=== PATIENT | female | born 1945 | race Caucasian/White ===

== ENCOUNTER → 2020-11-25 10:16 | Outpatient (BNVA) | payer MEDICARE, SELFPAY | PROVIDERS: Visit Provider Internal Medicine | DX: J44.9 Chronic obstructive pulmonary disease, unspecified (principal); Z79.51 Long term (current) use of inhaled steroids; Z87.891 Personal history of nicotine dependence | CPT/HCPCS: 99212 ==

== ENCOUNTER → 2021-03-23 09:07 | Outpatient (BNVA) | payer MEDICARE, SELFPAY | PROVIDERS: Visit Provider Internal Medicine | DX: I25.10 Atherosclerotic heart disease of native coronary artery without angina pectoris (principal); I10 Essential (primary) hypertension | CPT/HCPCS: 99212 ==

== ENCOUNTER 2021-05-04 10:06 | Emergency (ER) | payer MEDICARE, SELFPAY ==
--- NOTE | ~2021-05-04 | XR_ITS ---
EXAMINATION: XR CHEST CLINICAL INFORMATION: Shortness of breath COMPARISON: December 01, 2019 TECHNIQUE: AP portable view of the chest was obtained. FINDINGS: There is no evidence of acute parenchymal disease, pneumothorax, or pleural effusion. Heart normal size. No evidence of pulmonary edema. XR/XR chest 1V IMPRESSION: No acute disease.
[2021-05-04 10:19] VITALS: BP 160/62; PULSE 79; RESP 18; TEMP 35.9; O2SAT 98; BMI 36.0
--- NOTE | 2021-05-04 11:39 | ECG_ITS ---
Test Reason : GI BLEED Blood Pressure : / mmHG Vent. Rate : 071 BPM Atrial Rate : 071 BPM P-R Int : 180 ms QRS Dur : 084 ms QT Int : 418 ms P-R-T Axes : 046 008 079 degrees QTc Int : 454 ms Normal sinus rhythm Inferior infarct , age undetermined Abnormal ECG When compared with ECG of 02-DEC-2019 08:05, Premature ventricular complexes are no longer Present Inferior infarct is now Present Referred By: Ben Martinez Electronically Signed By:MANUELA GUZMAN MD
--- NOTE | 2021-05-04 12:03 | ED_ITS ---
HPI - General Adult General Chief complaint: General Medical Stated complaint: black stool Time Seen by Provider: 05/04/21 11:41 Source: patient Mode of arrival: ambulatory Limitations: no limitations History of Present Illness HPI narrative: 76-year-old female who presents emergency department for evaluation of black stools for 2 weeks, weakness, lightheadedness, dizziness and shortness of breath with exertion. The patient states that she has noticed intermittent, dark stools for the past 2 weeks. She states that she was feeling very weak and tired especially with exertion. She states she gets short of mirtha ath with exertion as well. She denied any chest pain, fever, chills, cough. She states that she has been having right lower back pain and bilateral lower groin pain, she is vague in describing the character the pain but she states that is [id number] in intensity and is intermittent. She denied frequency, urgency or dysuria. She did talk to her PCP and she states that she had blood work done but does not know the results. Her PCP told her to stop taking aspirin and she was going to be referred to a assistant professor of history for further evaluation. The patient denies taking any [id number] NSAIDs. The patient had blood work which was done yesterday, her H&H was 11.7 and 37.3. Comprehensive metabolic panel did reveal a slight elevation in her BUN of 22 with a normal creatinine of 1.25. LFTs were normal. TSH was normal. Related Data Home Medications Medication Instructions Recorded Confirmed anastrozole 1 mg tablet 1 mg PO DAILY 11/25/20 03/23/21 budesonide-formoterol HFA 160 INHALATION 11/25/20 03/23/21 mcg-4.5 mcg/actuation aerosol inhaler calcium carbonate 500 mg calcium 500 mg PO BID 11/25/20 03/23/21 (1,250 mg) tablet cholecalciferol (vitamin D3) 25 25 mcg PO DAILY 11/25/20 03/23/21 mcg (1,000 unit) tablet gabapentin 100 mg capsule 100 mg PO TID 11/25/20 03/23/21 memantine 10 mg tablet 10 mg PO BID 11/25/20 03/23/21 solifenacin 5 mg tablet mg PO 11/25/20 03/23/21 thiamine HCl (vitamin B1) 100 mg 100 mg PO DAILY 11/25/20 03/23/21 tablet vitamin E (dl, acetate) 180 mg PO 11/25/20 03/23/21 (400 unit) capsule aspirin 81 mg tablet,delayed 81 mg PO DAILY 03/23/21 release pravastatin 40 mg tablet 40 mg PO DAILY tab 03/23/21 03/23/21 Previous Rx's Medication Instructions Recorded albuterol sulfate 90 mcg/actuation 2 puff INHALATION Q4-6H PRN #8.5 11/06/20 aerosol inhaler cap nitroglycerin 0.4 mg sublingual 0.4 mg SUBLINGUAL Q5M PRN #30 tab 03/23/21 tablet diltiazem HCl 120 mg capsule,24 120 mg PO DAILY 90 Days #90 cap 04/01/21 hr,extended release Allergies Allergy/AdvReac Type Severity Reaction Status Date / Time hydrochlorothiazide Allergy Intermediate FELT Verified 03/23/21 09:13 [From ZESTORETIC] FAINT, syncope lisinopril [LISINOPRIL] Allergy Intermediate COUGH, Verified 03/23/21 09:13 coughing Review of Systems Review of Systems: Yes all other systems are reviewed and are negative [facility] Past Medical History [facility] Narrative: Social history: The patient denies tobacco use. She occasionally drinks alcohol. She denies drug use. Medical History Atherosclerotic cardiovascular disease COPD (chronic obstructive pulmonary disease) Surgical History History of ankle surgery History of lumpectomy of left breast History of tubal ligation Family History Family History Father Family history of cancer Mother Colon cancer Alzheimer disease Social History Social History Patient Tobacco Use Status: Former Tobacco user Quit Date: age 58 Physical Exam Vital Signs: Vital Signs: Last Vital Signs Temp 96.6 F L 05/04/21 10:19 Pulse 68 05/04/21 14:14 Resp 18 05/04/21 14:14 BP 153/48 H 05/04/21 14:14 Pulse Ox 96 05/04/21 14:14 Body Mass Index 36.0 Const: General: cooperative (Very pleasant) and no acute distress Nutr itional Appearance: obese Orientation/consciousness: oriented to person and oriented to place Limitations: no limitations HENMT: Head: Yes normal to inspection, Yes normocephalic and Yes atraumatic Ears: external ears normal General nose exam: Normal external nose present Face and sinus: Yes normal facial exam Mouth: Normal oral and palatal mucosa present Throat: Yes posterior oropharynx normal Eyes: General: appearance normal, both eyes and all related structures Pupils: Equal, round and reactive pupils present Neck: Neck: Yes normal visual inspection, Yes no lymphadenopathy, Yes trachea midline and Yes supple Chest: Chest palpation & inspection: normal inspection of the chest and normal palpation of entire chest wall Resp: Effort & Inspection: normal respiratory effort and able to speak in complete sentences Auscultation: clear to auscultation bilaterally Cardio: Rate: regular rate Rhythm: regular rhythm Heart sounds: S1 normal heart sound present, S2 normal heart sound present and no murmurs GI: Inspection: Yes normal to inspection Palpation (GI): Soft to palpation, nontender and no guarding Auscultation: normal bowel sounds Rectal Exam - Female: visual inspection normal, normal sphincter tone and Abnormal stool present Rectal exam abnormal stool - female: black stool and other (Hemoccult negative) : General: Yes no CVA tenderness Back/Spine/Pelvis: Back: no CVA tenderness Skin: General skin exam: no rashes or lesions noted Neuro: General: oriented to person and oriented to place Cranial nerves: Yes CN's II-XII intact bilaterally and Yes Equal, round and reactive pupils present Cognition (Neuro): normal cognition Motor exam (neuro): 5/5 motor strength present throughout Extrem: General: Yes normal to inspection Psych: Appearance: grossly normal Speech and movement: Normal speech and movement present Affect: normal affect Attitude: cooperative Thought process: Normal thought process present Thought content: Normal thought content present Course Course Course Narrative: 76-year-old female who presents emergency department for evaluation of dark stools, weakness, fatigue, dyspnea on exertion x2 weeks. Patient was taking 1 baby aspirin per day but not taking any NSAIDs. Vital signs revealed a blood pressure of 160/62 and a low temperature of 96.6?, otherwise were unremarkable. Physical examination revealed no abdominal tenderness. Rectal examination did reveal dark stool however the stool was Hemoccult negative. I ordered andevaluation including EKG was ordered on the patient 1417: Patient's laboratory evaluation revealed an H&H of 10.9 and 34.7. MCV was normal. Patient has had similar H&H is in the past, yesterday's H&H was 11.7 and 37.3. This time however I do not think the patient has had a significant decrease in her hematocrit and I do not think that anemia is the cause of her symptoms especially since her Hemoccult was negative today. CMP was normal except for a slight elevation in his BNP 22 which is chronic. The patient's 12 EKG was unremarkable. I will discuss the patient's presentation with her provider, Esperanza Lopez NP. 1520: I was unable to reach the patient's PCP. The patient appears to be stable and I will discharge her to home. She was advised to follow-up with her PCP discuss further workup of her dark stools and her other symptoms. The patient was given verbal and printed instructions prior to discharge. The patient was advised to follow-up with her PCP in 2 days and to return to the emergency department if her symptoms get worse or if she develops any new symptoms that are concerning to her. Medical Decision Making Lab Data Result diagrams: 05/04/21 12:03 05/04/21 12:03 Labs: Lab Results 05/04/21 05/04/21 05/04/21 Range/Units 12:03 12:03 12:03 WBC 11.4 H (4.8-10.8) X10*3/uL RBC 3.79 L (4.20-5.50) X10*6/uL Hgb 10.9 L (12.0-16.0) g/dl Hct 34.7 L (37-47) % MCV 91.6 (80-98) fL MCH 28.8 (27.0-33.0) pg MCHC 31.4 (31.0-35.0) g/dl RDW 14.6 (11.0-16.0) % Plt Count 329 (160-400) X10*3/uL MPV 9.7 (9.4-12.3) fL Immature Gran % (Auto) 0.7 H (0.0-0.4) % Neut % (Auto) 67.2 (45-73) % Lymph % (Auto) 21.4 (20-40) % [place] % (Auto) 8.6 (2-11) % Eos % (Auto) 1.7 (0-4) % Baso % (Auto) 0.4 (0-2) % Lymph # (Auto) 2.4 (1.2-4.9) X10*3/uL [place] # (Auto) 1.0 (0.1-1.2) X10*3/uL Eos # (Auto) 0.2 (0.0-0.4) X10*3/uL Baso # (Auto) 0.0 (0.0-0.2) X10*3/uL Abs Immat Gran (auto) 0.08 H (0.00-0.03) X10*3/uL Absolute Neuts (auto) 7.7 (2.0-8.3) X10*3/uL Absolute Nucleated RBC 0.000 (0.0-0.012) X10*3/uL Nucleated RBC % (auto) 0.0 (0.0-0.2) /100WBC PT 12.1 (9.9-13.0) SEC INR 1.1 (0.9-1.1) APTT 35.7 (24.1-38.0) SEC Sodium 139 (135-145) mmol/L Potassium 4.4 (3.3-5.1) mmol/L Chloride 104 (96-108) mmol/L Carbon Dioxide 25 (22-29) mmol/L Anion Gap 14 (12-20) BUN 22 H (9-16) mg/dL Creatinine 1.27 (0.5-1.4) mg/dL Estim Creat Clear Calc 40.8 Estimated GFR 41 Random Glucose 106 (60-115) mg/dL Calcium 9.3 (8.4-10.2) mg/dL Total Bilirubin (0.0-1.0) mg/dL Direct Bilirubin (0.0-0.5) mg/dL AST (5-31) U/L ALT (0-31) U/L Alkaline Phosphatase (39-117) U/L Troponin I High Sens (<3.5-17.0) ng/L Total Protein (6.5-8.0) g/dL Albumin (3.5-5.0) g/dL Lipase (8-78) U/L Coronavirus (PCR) (Negative) Influenza Type A (PCR) (Negative) Influenza Type B (PCR) (Negative) RSV RNA Qual (PCR) (Negative) 05/04/21 05/04/21 05/04/21 Range/Units 12:03 12:03 12:03 WBC (4.8-10.8) X10*3/uL RBC (4.20-5.50) X10*6/uL Hgb (12.0-16.0) g/dl Hct (37-47) % MCV (80-98) fL MCH (27.0-33.0) pg MCHC (31.0-35.0) g/dl RDW (11.0-16.0) % Plt Count (160-400) X10*3/uL MPV (9.4-12.3) fL Immature Gran % (Auto) (0.0-0.4) % Neut % (Auto) (45-73) % Lymph % (Auto) (20-40) % [place] % (Auto) (2-11) % Eos % (Auto) (0-4) % Baso % (Auto) (0-2) % Lymph # (Auto) (1.2-4.9) X10*3/uL [place] # (Auto) (0.1-1.2) X10*3/uL Eos # (Auto) (0.0-0.4) X10*3/uL Baso # (Auto) (0.0-0.2) X10*3/uL Abs Immat Gran (auto) (0.00-0.03) X10*3/uL Absolute Neuts (auto) (2.0-8.3) X10*3/uL Absolute Nucleated RBC (0.0-0.012) X10*3/uL Nucleated RBC % (auto) (0.0-0.2) /100WBC PT (9.9-13.0) SEC INR (0.9-1.1) APTT (24.1-38.0) SEC Sodium (135-145) mmol/L Potassium (3.3-5.1) mmol/L Chloride (96-108) mmol/L Carbon Dioxide (22-29) mmol/L Anion Gap (12-20) BUN (9-16) mg/dL Creatinine (0.5-1.4) mg/dL Estim Creat Clear Calc Estimated GFR Random Glucose (60-115) mg/dL Calcium (8.4-10.2) mg/dL Total Bilirubin 0.6 (0.0-1.0) mg/dL Direct Bilirubin 0.3 (0.0-0.5) mg/dL AST 17 (5-31) U/L ALT 13 (0-31) U/L Alkaline Phosphatase 82 (39-117) U/L Troponin I High Sens 5.1 (<3.5-17.0) ng/L Total Protein 7.8 (6.5-8.0) g/dL Albumin 4.2 (3.5-5.0) g/dL Lipase 31 (8-78) U/L Coronavirus (PCR) NEGATIVE (Negative) Influenza Type A (PCR) NEGATIVE (Negative) Influenza Type B (PCR) NEGATIVE (Negative) RSV RNA Qual (PCR) NEGATIVE (Negative) ECG Data Attestation: I personally reviewed and interpreted this ECG as follows: Interpretation: 1236: Normal sinus rhythm rate of 71, normal [place] interval, QRS duration and QTC interval, Q-wave in lead 3 and AVF, no ST segment elevation, no ST segment depression, no PACs, no PVCs, nonspecific T-wave abnormalities. Discharge Plan Discharge Clinical Impression: Dark stools, Weakness Patient Disposition: Home, Self-Care Additional Instructions: Your laboratory evaluation revealed that she had mild anemia with a hemoglobin and hematocrit of 10.9 and 34.7. Your MCV (a marker of low iron) was also normal which is reassuring. On your examination today, your stool was dark but it was no blood in your stool (Hemoccult negative). Your abdominal exam did not reveal any tenderness which was also reassuring. Your EKG was unremarkable. At this time, I do not have a clear cause for your dark stools or your weakness. Follow-up with your doctor in 2 days. Please return to the emergency department if your symptoms get worse or if you develop any symptoms that are concerning to you. Prescriptions: No Action albuterol sulfate 90 mcg/actuation HFA aerosol inhaler 2 puff inhalation Q4-6H PRN (Reason: for wheezing) Qty: 8.5 RF: 3 diltiazem HCl 120 mg capsule,extended release 24 hr 120 mg PO DAILY 90 Days Qty: 90 RF: 2 memantine 10 mg tablet 10 mg PO BID RF: 0 gabapentin 100 mg capsule 100 mg PO TID RF: 0 calcium carbonate 500 mg calcium (1,250 mg) tablet 500 mg PO BID RF: 0 thiamine HCl (vitamin B1) 100 mg tablet 100 mg PO DAILY RF: 0 cholecalciferol (vitamin D3) 25 mcg (1,000 unit) tablet 25 mcg PO DAILY RF: 0 solifenacin 5 mg tablet PO RF: 0 vitamin E (dl, acetate) 400 unit capsule PO RF: 0 budesonide-formoterol 160-4.5 mcg/actuation HFA aerosol inhaler inhalation RF: 0 anastrozole 1 mg tablet 1 mg PO DAILY RF: 0 pravastatin 40 mg tablet 40 mg PO DAILY RF: 0 nitroglycerin 0.4 mg tablet, sublingual 0.4 mg sublingual Q5M PRN (Reason: chest pain) Qty: 30 RF: 5 aspirin 81 mg tablet,delayed release (DR/EC) 81 mg PO DAILY RF: 0 Interventions: ED Discharge Assessment Last Done: 05/04/21 15:32 Discharge Date/Time: 05/04/21 15:33
[2021-05-04 12:12] LABS: MANUAL DIFF FLAG NO
[2021-05-04 12:17] LABS: Basophils Percent Auto 0.4 % (0-2); Eosinophils Absolute Auto 0.2 X10*3/uL (0.0-0.4); Eosinophils Percent Auto 1.7 % (0-4); Hematocrit 34.7 % (37-47); Hemoglobin 10.9 g/dl (12.0-16.0); Imm Gran Abs Auto 0.08 X10*3/uL (0.00-0.03); Imm Gran Pct Auto 0.7 % (0.0-0.4); Lymphocytes Absolute Auto 2.4 X10*3/uL (1.2-4.9); Lymphocytes Percent Auto 21.4 % (20-40); Mean Corpuscular HGB Conc 31.4 g/dl (31.0-35.0); Mean Corpuscular Hemoglobin 28.8 pg (27.0-33.0); Mean Corpuscular Volume 91.6 fL (80-98); Mean Platelet Volume 9.7 fL (9.4-12.3); Monocytes Percent Auto 8.6 % (2-11); Neutrophils Absolute Auto 7.7 X10*3/uL (2.0-8.3); Neutrophils Percent Auto 67.2 % (45-73); Platelet Count 329 X10*3/uL (160-400); Red Blood Count 3.79 X10*6/uL (4.20-5.50); Red Cell Distribution Width 14.6 % (11.0-16.0); White Blood Count 11.4 X10*3/uL (4.8-10.8)
[2021-05-04 12:24] LABS: INTERNATIONAL NORM RATIO 1.1 (0.9-1.1); Prothrombin Time 12.1 SEC (9.9-13.0)
[2021-05-04 12:26] LABS: Partial Thromboplastin Time 35.7 SEC (24.1-38.0)
[2021-05-04 12:33] VITALS: BP 144/56; PULSE 70; RESP 15; O2SAT 96
[2021-05-04 12:41] LABS: Alanine Aminotransferase 13 U/L (0-31); Albumin Level 4.2 g/dL (3.5-5.0); Alkaline Phosphatase 82 U/L (39-117); Anion Gap 14 (12-20); Aspartate Amino Transferase 17 U/L (5-31); Bilirubin Direct 0.3 mg/dL (0.0-0.5); Bilirubin Total 0.6 mg/dL (0.0-1.0); Blood Urea Nitrogen 22 mg/dL (9-16); Calcium 9.3 mg/dL (8.4-10.2); Carbon Dioxide 25 mmol/L (22-29); Chloride 104 mmol/L (96-108); Creatinine Clr Calc Pharmacy 40.8; Estimated Glomerular Filt Rate 41; Glucose Random 106 mg/dL (60-115); Lipase 31 U/L (8-78); Potassium 4.4 mmol/L (3.3-5.1); Sodium 139 mmol/L (135-145); Total Protein 7.8 g/dL (6.5-8.0)
[2021-05-04 12:46] LABS: Troponin-I High Sensitivity 5.1 ng/L (<3.5-17.0)
[2021-05-04 13:28] LABS: Influenza A PCR NEGATIVE (Negative); Influenza B PCR NEGATIVE (Negative); Resp Syncy Virus RNA Qual PCR NEGATIVE (Negative); SARS COV2 PCR INHOUSE NEGATIVE (Negative)
[2021-05-04 14:14] VITALS: BP 153/48; PULSE 68; RESP 18; O2SAT 96
--- NOTE | 2021-05-04 14:50 | PC.NURSE ---
pt ambulating to bathroom independently with no issue multiple times. denies dizziness, cp, slight sob spo2 WNL.
== END 2021-05-04 15:33 | disposition home or self-care (01) ==
PROVIDERS: Emergency Provider Emergency Medicine Emergency Medical Services; PCP Nurse Practitioner Family
DX: R19.5 Other fecal abnormalities (principal); R53.1 Weakness; D64.9 Anemia, unspecified; J44.9 Chronic obstructive pulmonary disease, unspecified; Z79.899 Other long term (current) drug therapy; Z20.822 Contact with and (suspected) exposure to COVID-19
CPT/HCPCS: 0241U; 36415; 71045; 80048; 80076; 83690; 84484; 85025; 85610; 85730; 93005; 99283; 99284

== ENCOUNTER → 2021-05-31 10:24 | Outpatient (BNVA) | payer MEDICARE, SELFPAY | PROVIDERS: PCP Nurse Practitioner Family; Visit Provider Internal Medicine | DX: J44.9 Chronic obstructive pulmonary disease, unspecified (principal); J98.4 Other disorders of lung; I25.10 Atherosclerotic heart disease of native coronary artery without angina pectoris; Z88.8 Allergy status to other drugs, medicaments and biological substances | CPT/HCPCS: 99212 ==

== ENCOUNTER → 2021-08-31 08:36 | Outpatient (BNVA) | payer MEDICARE, SELFPAY | PROVIDERS: PCP Nurse Practitioner Family; Referring Provider Nurse Practitioner Family; Visit Provider Internal Medicine | DX: I25.10 Atherosclerotic heart disease of native coronary artery without angina pectoris (principal); I10 Essential (primary) hypertension | CPT/HCPCS: 99212 ==

== ENCOUNTER 2021-11-14 16:16 | Emergency (ER) | payer MEDICARE, SELFPAY ==
[2021-11-14 16:28] VITALS: BP 130/70; PULSE 97; RESP 17; TEMP 36.7; O2SAT 97; BMI 37.3
--- NOTE | 2021-11-14 16:36 | ECG_ITS ---
Test Reason : ARM PAIN Blood Pressure : / mmHG Vent. Rate : 081 BPM Atrial Rate : 081 BPM P-R Int : 178 ms QRS Dur : 086 ms QT Int : 378 ms P-R-T Axes : 022 015 075 degrees QTc Int : 439 ms Normal sinus rhythm Inferior infarct (cited on or before 04-MAY-2021) Abnormal ECG When compared with ECG of 04-MAY-2021 12:36, No significant change was found Referred By: Generic ED Physician Electronically Signed By:LAURA RAMOS
[2021-11-14 17:16] LABS: MANUAL DIFF FLAG NO
[2021-11-14 17:21] LABS: Basophils Absolute Auto 0.1 X10*3/uL (0.0-0.2); Basophils Percent Auto 0.4 % (0-2); Eosinophils Absolute Auto 0.3 X10*3/uL (0.0-0.4); Hematocrit 35.5 % (37.0-47.0); Hemoglobin 11.4 g/dl (12.0-16.0); Imm Gran Abs Auto 0.11 X10*3/uL (0.00-0.03); Imm Gran Pct Auto 0.8 % (0.0-0.4); Lymphocytes Absolute Auto 2.5 X10*3/uL (1.2-4.9); Lymphocytes Percent Auto 18.2 % (20-40); Mean Corpuscular HGB Conc 32.1 g/dl (31.0-35.0); Mean Corpuscular Hemoglobin 29.4 pg (27.0-33.0); Mean Corpuscular Volume 91.5 fL (80.0-98.0); Mean Platelet Volume 9.5 fL (9.4-12.3); Monocytes Absolute Auto 1.2 X10*3/uL (0.1-1.2); Monocytes Percent Auto 8.9 % (2-11); Neutrophils Absolute Auto 9.7 x10*3/uL (2.0-8.3); Neutrophils Percent Auto 69.7 % (45-73); Platelet Count 321 X10*3/uL (160-400); Red Blood Count 3.88 X10*6/uL (4.20-5.50); Red Cell Distribution Width 13.7 % (11.0-16.0); White Blood Count 13.9 X10*3/uL (4.8-10.8)
[2021-11-14 17:34] LABS: Anion Gap 14 (12-20); Blood Urea Nitrogen 29 mg/dL (9-16); Calcium 9.6 mg/dL (8.4-10.2); Carbon Dioxide 29 mmol/L (22-29); Chloride 101 mmol/L (96-108); Creatinine Clr Calc Pharmacy 33.7; Estimated Glomerular Filt Rate 33; Glucose Random 112 mg/dL (60-115); Potassium 4.5 mmol/L (3.3-5.1); Sodium 139 mmol/L (135-145)
[2021-11-14 17:40] LABS: Troponin-I High Sensitivity 6.5 ng/L (<3.5-17.0)
[2021-11-14 22:28] LABS: Glucose, Whole Blood 103 mg/dL (60-115)
== END 2021-11-14 23:08 | disposition left against medical advice (07) ==
PROVIDERS: Emergency Provider Emergency Medicine
DX: M79.602 Pain in left arm (principal); R42 Dizziness and giddiness; N39.41 Urge incontinence; R47.81 Slurred speech; Z79.899 Other long term (current) drug therapy
CPT/HCPCS: 36415; 80048; 82947; 84484; 85025; 93005; 99283; 99284

== ENCOUNTER → 2021-11-29 11:22 | Outpatient (BNVA) | payer MEDICARE, SELFPAY | PROVIDERS: Visit Provider Internal Medicine | DX: J44.9 Chronic obstructive pulmonary disease, unspecified (principal); J98.4 Other disorders of lung; J30.2 Other seasonal allergic rhinitis; I25.10 Atherosclerotic heart disease of native coronary artery without angina pectoris; I10 Essential (primary) hypertension; E78.00 Pure hypercholesterolemia, unspecified; Z87.891 Personal history of nicotine dependence; Z91.09 Other allergy status, other than to drugs and biological substances; Z88.8 Allergy status to other drugs, medicaments and biological substances; Z79.82 Long term (current) use of aspirin; Z79.899 Other long term (current) drug therapy | CPT/HCPCS: 99212 ==

== ENCOUNTER 2021-12-05 09:10 | Day surgery (SDC) | payer MEDICARE, SELFPAY ==
[2021-11-23 15:08] VITALS: BMI 37.5
--- NOTE | 2021-12-01 12:56 | MHC.SHP ---
Pre-Procedural Eval Section A Date of Service: 12/01/21 The patient is an INPATIENT: No Changes since office visit: No Cold of Flu in the past 2 weeks, No New Medical Problems, No Changes in Medication and No Patient answered all questions The History & Physical has been completed within 30 days and I have reviewed it.: Yes Section B Chief Complaint: cataract right eye Allergies: Allergies Allergy/AdvReac Type Severity Reaction Status Date / Time hydrochlorothiazide Allergy Intermediate FELT Verified 11/29/21 11:35 [From ZESTORETIC] FAINT, syncope lisinopril [LISINOPRIL] Allergy Intermediate Cough Verified 11/29/21 11:35 Plan Diagnosis/Plan: Unchanged I have reviewed the history and physical and performed a pertinent physical examination on my patient. No changes have occurred unless specified.
--- NOTE | 2021-12-02 09:22 | HO.ANESPROP2 ---
Documented by User: Abiola Jennings NP 12/02/21 09:23 HPI - Anesthesia Eval Consult details Narrative: 76yo F for Right Cataract Multifocal with IOL Insertion PCP cleared No prev cataract on record [facility] Active Problems Active Problems: All Active Problems (Updated 11/29/21 @ 11:51 by Mini Martinez MD) Malignant neoplasm of upper-outer quadrant of left female breast (Acute) Essential hypertension (Acute) Restrictive lung disease (Acute) Atherosclerotic cardiovascular disease (Acute) COPD (chronic obstructive pulmonary disease) (Acute) Past Medical History Medical History Arthritis Atherosclerotic cardiovascular disease Cataract COPD (chronic obstructive pulmonary disease) Environmental and seasonal allergies High cholesterol HTN (hypertension) Low back pain Restrictive lung disease Use of cane as ambulatory aid Wears dentures Family History Family History Father Family history of cancer Mother Colon cancer Alzheimer disease Surgical History Surgical History History of ankle surgery History of lumpectomy of left breast History of tubal ligation Hx of colonoscopy Social History Social History 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 If so, by whom?: No Are you DNR?: No Advance Directives: No (will bring copy dos) Advance Directives Information Provided: No Advance Directives on File: No Meds Allergies Allergy/AdvReac Type Severity Reaction Status Date / Time hydrochlorothiazide Allergy Intermediate FELT Verified 11/29/21 11:35 [From ZESTORETIC] FAINT, syncope lisinopril [LISINOPRIL] Allergy Intermediate Cough Verified 11/29/21 11:35 Home Medications Medication Instructions Recorded Confirmed Last Taken Type anastrozole 1 mg tablet 1 mg PO DAILY 11/25/20 08/31/21 Unknown History budesonide-formoterol HFA 160 INHALATION 11/25/20 08/31/21 12/05/21 History mcg-4.5 mcg/actuation aerosol inhaler cholecalciferol (vitamin D3) 25 25 mcg PO DAILY 11/25/20 11/23/21 Unknown History mcg (1,000 unit) tablet gabapentin 100 mg capsule 100 mg PO TID 11/25/20 11/23/21 Unknown History memantine 10 mg tablet 10 mg PO BID 11/25/20 11/23/21 Unknown History thiamine HCl (vitamin B1) 100 mg 100 mg PO DAILY 11/25/20 11/23/21 Unknown History tablet vitamin E (dl, acetate) 180 mg PO 11/25/20 08/31/21 Unknown History (400 unit) capsule pravastatin 40 mg tablet 40 mg PO DAILY tab 03/23/21 11/23/21 Unknown History cyanocobalamin (vitamin B-12) 1,000 mcg PO DAILY 05/31/21 11/23/21 Unknown History 1,000 mcg tablet (Vitamin B-12) loratadine 10 mg tablet (Allergy 10 mg PO DAILY 05/31/21 11/23/21 Unknown History Relief (loratadine)) nystatin 100,000 unit/gram topical 1 appl TOPICAL BID-TID 05/31/21 08/31/21 11/23/19 History powder aspirin 81 mg tablet,delayed 81 mg PO DAILY 08/31/21 08/31/21 Unknown History release (Adult Low Dose Aspirin) Exam Exam Date and Time: December 02, 2021 0922 Height,Weight and Vital Signs: Height 5 ft 4 in Weight 99.337 kg Assessment and Plan Assessment Anesthesia Assessment: Chart Reviewed Documented by User: Eliud Matthews MD 12/05/21 11:22 [facility] Past Medical History Medical History Arthritis Atherosclerotic cardiovascular disease Cataract COPD (chronic obstructive pulmonary disease) Environmental and seasonal allergies High cholesterol HTN (hypertension) Low back pain Restrictive lung disease Use of cane as ambulatory aid Wears dentures Family History Family History Father Family history of cancer Mother Colon cancer Alzheimer disease Family history of problems with anesthesia: No Surgical History Surgical History History of ankle surgery History of lumpectomy of left breast History of tubal ligation Hx of colonoscopy History of Problems with Anesthesia: No Social History Social History 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 If so, by whom?: No Are you DNR?: No Advance Directives: No (will bring copy dos) Advance Directives Information Provided: No Advance Directives on File: No Meds Allergies Allergy/AdvReac Type Severity Reaction Status Date / Time hydrochlorothiazide Allergy Intermediate FELT Verified 11/29/21 11:35 [From ZESTORETIC] FAINT, syncope lisinopril [LISINOPRIL] Allergy Intermediate Cough Verified 11/29/21 11:35 Home Medications Medication Instructions Recorded Confirmed Last Taken Type anastrozole 1 mg tablet 1 mg PO DAILY 11/25/20 08/31/21 Unknown History budesonide-formoterol HFA 160 INHALATION 11/25/20 08/31/21 12/05/21 History mcg-4.5 mcg/actuation aerosol inhaler cholecalciferol (vitamin D3) 25 25 mcg PO DAILY 11/25/20 11/23/21 Unknown History mcg (1,000 unit) tablet gabapentin 100 mg capsule 100 mg PO TID 11/25/20 11/23/21 Unknown History memantine 10 mg tablet 10 mg PO BID 11/25/20 11/23/21 Unknown History thiamine HCl (vitamin B1) 100 mg 100 mg PO DAILY 11/25/20 11/23/21 Unknown History tablet vitamin E (dl, acetate) 180 mg PO 11/25/20 08/31/21 Unknown History (400 unit) capsule pravastatin 40 mg tablet 40 mg PO DAILY tab 03/23/21 11/23/21 Unknown History cyanocobalamin (vitamin B-12) 1,000 mcg PO DAILY 05/31/21 11/23/21 Unknown History 1,000 mcg tablet (Vitamin B-12) loratadine 10 mg tablet (Allergy 10 mg PO DAILY 05/31/21 11/23/21 Unknown History Relief (loratadine)) nystatin 100,000 unit/gram topical 1 appl TOPICAL BID-TID 05/31/21 08/31/21 11/23/19 History powder aspirin 81 mg tablet,delayed 81 mg PO DAILY 08/31/21 08/31/21 Unknown History release (Adult Low Dose Aspirin) Exam Airway Mallampati Class: II TM Dist: >3cm Neck ROM: Full Denture: Upper and Lower Loose/Missing/Broken Teeth: Yes Heart: [id number] Lungs: cta b/l Assessment and Plan Assessment Anesthesia Assessment: Anesthesia Plan Discussed Final Anesthetic Review Family History of Problems with Anesthesia: No History of Problems with Anesthesia: No NPO: Yes ASA Class: III Final Preanesthetic Review: No Changes in Pt Med Stat, Meds/Allgs Chart Reviewed, Consent Obtained/Reviewed and Anes Risks/Benef Reviewed Patient Risk: Intermediate Procedure Risk: Low Anesthetic Plan Anesthetic Plan: MAC: and Agree w/ Assess. and Plan Disposition: Standard PACU
[2021-12-05 10:50] VITALS: BP 167/71; PULSE 73; RESP 16; TEMP 36.6; O2SAT 98
[2021-12-05] MEDS: Tetracaine HCl/PF 0.5% Oph Sol 4 ML DROPS 1 DROP EYE-RIGHT (10:55)
[2021-12-05] MEDS: Tropicamide 1 % Ophth Sol 3 ML BTL 1 DROP EYE-RIGHT ×3 (10:56→11:05)
[2021-12-05] MEDS: Phenylephrine HCL 2.5% Oph SoL 2 ML BOTTLE 1 DROP EYE-RIGHT ×3 (10:59→11:08)
[2021-12-05] MEDS: Lactated Ringers 500 ML 50 ML IV (11:10)
--- NOTE | 2021-12-05 11:52 | HO.PNOPHT ---
Ophthalmology Procedure Procedure Date of Service: 12/05/21 Ophthalmology Viscoelastic: Dash Landist Dual Pack Pro Ophthalmology Lenses: TECANTIONETTE [id number] (22) Procedure Notes: PREOPERATIVE DIAGNOSIS: Decreased visual acuity right eye secondary to cataract POSTOPERATIVE DIAGNOSIS: Same PROCEDURE: Right cataract extraction with intraocular lens insertion SURGEON: Richard Velez M.D. ANESTHESIA: Topical/MAC ESTIMATED BLOOD LOSS: None COMPLICATIONS: None After obtaining informed consent, the patient was brought to the operating room suite and placed in the supine position. After adequate sedation per anesthesia, topical drops of Tetracaine were given to the right eye. The eye was then prepped and draped in the usual sterile fashion. The operating room microscope was then positioned over the operative eye and a lid speculum placed. A paracentesis was created. Viscoelastic was then instilled into the anterior chamber. A three plane incision was then created temporally, utilizing a 2.85 mm keratome. Capsulotomy forceps were then utilized to create a circular tear capsulotomy. Hydrodissection and hydrodelineation were carried out until adequate mobilization of the nucleus occurred. Phacoemulsification was then utilized to remove the dense central nucleus followed by removal of the cortical material utilizing the automated aspiration irrigation unit. Viscoelastic was instilled into the posterior capsular bag followed by placement of a posterior chamber intraocular lens without difficulty. The residual Viscoelastic was then removed utilizing the automated IA machine. The wound was checked and found to be watertight. The patient tolerated the procedure well and the lid speculum was removed. Intracameral injection of Vigamox 0.1 mL followed by a subtenon injection of Kenalog-40 0.2 mL were administered. The patient will be seen in the a.m.
[2021-12-05 12:21] VITALS: BP 155/66; PULSE 77; RESP 18; TEMP 36.4; O2SAT 96
== END 2021-12-05 12:38 ==
LOC: HO.SSS 09:10
PROVIDERS: PCP Nurse Practitioner Family; Visit Provider Ophthalmology
PROC: (CPT 66985; principal; 2021-12-05 12:20)
DX: H25.11 Age-related nuclear cataract, right eye (principal); H52.4 Presbyopia; I10 Essential (primary) hypertension; M81.0 Age-related osteoporosis without current pathological fracture; M79.7 Fibromyalgia; E78.00 Pure hypercholesterolemia, unspecified; G30.9 Alzheimer's disease, unspecified; F02.80 Dementia in other diseases classified elsewhere, unspecified severity, without behavioral disturbance, psychotic disturbance, mood disturbance, and anxiety; Z79.899 Other long term (current) drug therapy; Z88.8 Allergy status to other drugs, medicaments and biological substances
CPT/HCPCS: 66984; J2250; J3300; V2632

== ENCOUNTER 2021-12-12 09:42 | Day surgery (SDC) | payer MEDICARE, SELFPAY ==
[2021-11-23 15:12] VITALS: BMI 37.5
--- NOTE | 2021-12-09 09:59 | HO.ANESPROP2 ---
Documented by User: Abiola Jennings NP 12/09/21 10:01 HPI - Anesthesia Eval Consult details Narrative: 76yo F for Left Cataract Extraction IOL Insertion PCP cleared RIght eye 12/05/21 with MAC: Midaz 2 PMFSH Active Problems Active Problems: All Active Problems (Updated 11/29/21 @ 11:51 by Mini Martinez MD) Malignant neoplasm of upper-outer quadrant of left female breast (Acute) Essential hypertension (Acute) Restrictive lung disease (Acute) Atherosclerotic cardiovascular disease (Acute) COPD (chronic obstructive pulmonary disease) (Acute) Past Medical History Medical History Arthritis Atherosclerotic cardiovascular disease Cataract COPD (chronic obstructive pulmonary disease) Environmental and seasonal allergies High cholesterol HTN (hypertension) Low back pain Restrictive lung disease Use of cane as ambulatory aid Wears dentures Family History Family History Father Family history of cancer Mother Colon cancer Alzheimer disease Family history of problems with anesthesia: No Surgical History Surgical History History of ankle surgery History of lumpectomy of left breast History of tubal ligation Hx of colonoscopy History of Problems with Anesthesia: No Social History Social History 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 If so, by whom?: No Are you DNR?: No Advance Directives: No Advance Directives Information Provided: Yes Advance Directives on File: No Meds Allergies Allergy/AdvReac Type Severity Reaction Status Date / Time hydrochlorothiazide Allergy Intermediate FELT Verified 11/29/21 11:35 [From [facility]ESTORETIC] FAINT, syncope lisinopril [LISINOPRIL] Allergy Intermediate Cough Verified 11/29/21 11:35 Home Medications Medication Instructions Recorded Confirmed Last Taken Type anastrozole 1 mg tablet 1 mg PO DAILY 11/25/20 08/31/21 Unknown History budesonide-formoterol HFA 160 INHALATION 11/25/20 08/31/21 12/05/21 History mcg-4.5 mcg/actuation aerosol inhaler cholecalciferol (vitamin D3) 25 25 mcg PO DAILY 11/25/20 11/23/21 Unknown History mcg (1,000 unit) tablet gabapentin 100 mg capsule 100 mg PO TID 11/25/20 11/23/21 Unknown History memantine 10 mg tablet 10 mg PO BID 11/25/20 11/23/21 Unknown History thiamine HCl (vitamin B1) 100 mg 100 mg PO DAILY 11/25/20 11/23/21 Unknown History tablet vitamin E (dl, acetate) 180 mg PO 11/25/20 08/31/21 Unknown History (400 unit) capsule pravastatin 40 mg tablet 40 mg PO DAILY tab 03/23/21 11/23/21 Unknown History cyanocobalamin (vitamin B-12) 1,000 mcg PO DAILY 05/31/21 11/23/21 Unknown History 1,000 mcg tablet (Vitamin B-12) loratadine 10 mg tablet (Allergy 10 mg PO DAILY 05/31/21 11/23/21 Unknown History Relief (loratadine)) nystatin 100,000 unit/gram topical 1 appl TOPICAL BID-TID 05/31/21 08/31/21 11/23/19 History powder aspirin 81 mg tablet,delayed 81 mg PO DAILY 08/31/21 08/31/21 Unknown History release (Adult Low Dose Aspirin) Exam Exam Date and Time: December 09, 2021 0959 Height,Weight and Vital Signs: Height 5 ft 4 in Weight 99.337 kg Assessment and Plan Assessment Anesthesia Assessment: Chart Reviewed Final Anesthetic Review Family History of Problems with Anesthesia: No History of Problems with Anesthesia: No Documented by User: Eliud Matthews MD 12/12/21 11:56 [facility] Past Medical History Medical History Arthritis Atherosclerotic cardiovascular disease Cataract COPD (chronic obstructive pulmonary disease) Environmental and seasonal allergies High cholesterol HTN (hypertension) Low back pain Restrictive lung disease Use of cane as ambulatory aid Wears dentures Family History Family History Father Family history of cancer Mother Colon cancer Alzheimer disease Surgical History Surgical History History of ankle surgery History of lumpectomy of left breast History of tubal ligation Hx of colonoscopy Social History Social History 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 If so, by whom?: No Are you DNR?: No Advance Directives: No Advance Directives Information Provided: Yes Advance Directives on File: No Meds Allergies Allergy/AdvReac Type Severity Reaction Status Date / Time hydrochlorothiazide Allergy Intermediate FELT Verified 11/29/21 11:35 [From ZESTORETIC] FAINT, syncope lisinopril [LISINOPRIL] Allergy Intermediate Cough Verified 11/29/21 11:35 Home Medications Medication Instructions Recorded Confirmed Last Taken Type anastrozole 1 mg tablet 1 mg PO DAILY 11/25/20 08/31/21 Unknown History budesonide-formoterol HFA 160 INHALATION 11/25/20 08/31/21 12/05/21 History mcg-4.5 mcg/actuation aerosol inhaler cholecalciferol (vitamin D3) 25 25 mcg PO DAILY 11/25/20 11/23/21 Unknown History mcg (1,000 unit) tablet gabapentin 100 mg capsule 100 mg PO TID 11/25/20 11/23/21 Unknown History memantine 10 mg tablet 10 mg PO BID 11/25/20 11/23/21 Unknown History thiamine HCl (vitamin B1) 100 mg 100 mg PO DAILY 11/25/20 11/23/21 Unknown History tablet vitamin E (dl, acetate) 180 mg PO 11/25/20 08/31/21 Unknown History (400 unit) capsule pravastatin 40 mg tablet 40 mg PO DAILY tab 03/23/21 11/23/21 Unknown History cyanocobalamin (vitamin B-12) 1,000 mcg PO DAILY 05/31/21 11/23/21 Unknown History 1,000 mcg tablet (Vitamin B-12) loratadine 10 mg tablet (Allergy 10 mg PO DAILY 05/31/21 11/23/21 Unknown History Relief (loratadine)) nystatin 100,000 unit/gram topical 1 appl TOPICAL BID-TID 05/31/21 08/31/21 11/23/19 History powder aspirin 81 mg tablet,delayed 81 mg PO DAILY 08/31/21 08/31/21 Unknown History release (Adult Low Dose Aspirin) Exam Airway Mallampati Class: II TM Dist: >3cm Neck ROM: Full Denture: Upper and Lower Loose/Missing/Broken Teeth: Yes Heart: [id number] Lungs: cta b/l Assessment and Plan Assessment Anesthesia Assessment: Anesthesia Plan Discussed Final Anesthetic Review NPO: Yes ASA Class: III Final Preanesthetic Review: No Changes in Pt Med Stat, Meds/Allgs Chart Reviewed, Consent Obtained/Reviewed and Anes Risks/Benef Reviewed Patient Risk: Intermediate Procedure Risk: Low Assessment/Block/Sedation in SS: Assess/Block/Sedation-SS Anesthetic Plan Anesthetic Plan: MAC: and Agree w/ Assess. and Plan Disposition: Standard PACU
--- NOTE | 2021-12-09 14:40 | MHC.SHP ---
Pre-Procedural Eval Section A Date of Service: 12/09/21 The patient is an INPATIENT: No Changes since office visit: No Cold of Flu in the past 2 weeks, No New Medical Problems, No Changes in Medication and No Patient answered all questions The History & Physical has been completed within 30 days and I have reviewed it.: Yes Section B Chief Complaint: cataract left eye Allergies: Allergies Allergy/AdvReac Type Severity Reaction Status Date / Time hydrochlorothiazide Allergy Intermediate FELT Verified 11/29/21 11:35 [From ZESTORETIC] FAINT, syncope lisinopril [LISINOPRIL] Allergy Intermediate Cough Verified 11/29/21 11:35 Plan Diagnosis/Plan: Unchanged I have reviewed the history and physical and performed a pertinent physical examination on my patient. No changes have occurred unless specified.
[2021-12-12 10:45] VITALS: BP 149/71; PULSE 78; RESP 16; TEMP 36.8; O2SAT 97
[2021-12-12] MEDS: Tetracaine HCl/PF 0.5% Oph Sol 4 ML DROPS 1 DROP EYE-LEFT (10:51)
[2021-12-12] MEDS: Tropicamide 1 % Ophth Sol 3 ML BTL 1 DROP EYE-LEFT ×3 (10:53→11:03)
[2021-12-12] MEDS: Phenylephrine HCL 2.5% Oph SoL 2 ML BOTTLE 1 DROP EYE-LEFT ×3 (10:55→11:05)
[2021-12-12] MEDS: Lactated Ringers 500 ML 50 ML IV (10:59)
--- NOTE | 2021-12-12 12:06 | HO.PNOPHT ---
Ophthalmology Procedure Procedure Date of Service: 12/12/21 Ophthalmology Viscoelastic: Healbrea Duet Dual Pack Pro Ophthalmology Lenses: TECANTIONETTE [id number] (22) Procedure Notes: PREOPERATIVE DIAGNOSIS: Decreased visual acuity left eye secondary to cataract POSTOPERATIVE DIAGNOSIS: Same PROCEDURE: Left cataract extraction with intraocular lens insertion SURGEON: Richard Velez M.D. ANESTHESIA: Topical/MAC ESTIMATED BLOOD LOSS: None COMPLICATIONS: None After obtaining informed consent, the patient was brought to the operation room suite and placed in the supine position. After adequate sedation per anesthesia, topical drops of Tetracaine were given to the left eye. The eye was then prepped and draped in the usual sterile fashion. The operating room microscope was then positioned over the operative eye and a lid speculum placed. A paracentesis was created. Viscoelastic was then instilled into the anterior chamber. A three plane incision was then created temporally, utilizing a 2.85 mm keratome. Capsulotomy forceps were then utilized to create a circular tear capsulotomy. Hydrodissection and hydrodelineation were carried out until adequate mobilization of the nucleus occurred. Phacoemulsification was then utilized to remove the dense central nucleus followed by removal of the cortical material utilizing the automated aspiration irrigation unit. Viscoat elastic was instilled into the posterior capsular bag followed by placement of a posterior chamber intraocular lens without difficulty. The residual Viscoat elastic was then removed utilizing the automated IA machine. The wound was check and found to be watertight. The patient tolerated the procedure well and the lid speculum was removed. Intracameral injection of Vigamox 0.1 mL followed by a subtenon injection of Kenalog-40 0.2 mL were administered. The patient will be seen in the a.m.
[2021-12-12 12:30] VITALS: BP 161/74; PULSE 72; RESP 18; TEMP 36.1; O2SAT 97
== END 2021-12-12 12:33 | disposition home or self-care (01) ==
PROVIDERS: PCP Nurse Practitioner Family; Visit Provider Ophthalmology
PROC: (CPT 66985; principal; 2021-12-12 12:30)
DX: H25.12 Age-related nuclear cataract, left eye (principal); H54.7 Unspecified visual loss; H35.362 Drusen (degenerative) of macula, left eye; I25.10 Atherosclerotic heart disease of native coronary artery without angina pectoris; I10 Essential (primary) hypertension; E78.00 Pure hypercholesterolemia, unspecified; G30.9 Alzheimer's disease, unspecified; F02.80 Dementia in other diseases classified elsewhere, unspecified severity, without behavioral disturbance, psychotic disturbance, mood disturbance, and anxiety; J44.9 Chronic obstructive pulmonary disease, unspecified; J30.2 Other seasonal allergic rhinitis; C50.412 Malignant neoplasm of upper-outer quadrant of left female breast; Z79.811 Long term (current) use of aromatase inhibitors; Z79.51 Long term (current) use of inhaled steroids; Z79.82 Long term (current) use of aspirin; Z79.899 Other long term (current) drug therapy; Z88.8 Allergy status to other drugs, medicaments and biological substances; Z87.891 Personal history of nicotine dependence
CPT/HCPCS: 66984; J2250; J3010; J3300; V2632

== ENCOUNTER → 2022-03-06 08:49 | Outpatient (BNVA) | payer MEDICARE, SELFPAY | PROVIDERS: PCP Nurse Practitioner Family; Visit Provider Internal Medicine | DX: I25.10 Atherosclerotic heart disease of native coronary artery without angina pectoris (principal); I10 Essential (primary) hypertension; Z79.82 Long term (current) use of aspirin; Z79.899 Other long term (current) drug therapy | CPT/HCPCS: 99212 ==

== ENCOUNTER → 2022-06-01 10:54 | Outpatient (BNVA) | payer MEDICARE, SELFPAY | PROVIDERS: PCP Nurse Practitioner Family; Visit Provider Internal Medicine | DX: J44.9 Chronic obstructive pulmonary disease, unspecified (principal); J98.4 Other disorders of lung; E66.9 Obesity, unspecified | CPT/HCPCS: 94010; 99212 ==

== ENCOUNTER 2022-09-17 01:02 | Emergency (ER) | payer MEDICARE, SELFPAY ==
[2022-09-17 01:40] VITALS: BP 104/71; PULSE 77; RESP 16; TEMP 36.5; O2SAT 96; BMI 33.4
--- NOTE | 2022-09-17 02:02 | ED.FALL ---
HPI - Fall General Chief Complaint: Fall Stated Complaint: ? gallbladder issues Time Seen by Provider: 09/17/22 01:55 Source: patient Mode of arrival: ambulatory Limitations: no limitations History of Present Illness HPI Narrative: 77-year-old female who walked into the emergency department for evaluation of right-sided body ache with exertional dyspnea due to pain on the right side of the chest and upper abdomen, patient sustained a mechanical fall 3 days ago at the parking lot when she tripped and fell trying to break the fall with her right hand patient fell on her right side no head injury, no LOC, patient not sure if she is on blood thinner, patient is complaining of right-sided chest wall pain especially if she takes a deep breath, patient also been getting exertional dyspnea with walking due to the pain on the right side of the chest. Related Data Home Medications Medication Instructions Recorded Confirmed anastrozole 1 mg tablet 1 mg PO DAILY 11/25/20 06/01/22 budesonide-formoterol HFA 160 inhalation 11/25/20 06/01/22 mcg-4.5 mcg/actuation aerosol inhaler cholecalciferol (vitamin D3) 25 25 mcg PO DAILY 11/25/20 06/01/22 mcg (1,000 unit) tablet gabapentin 100 mg capsule 100 mg PO TID 11/25/20 06/01/22 memantine 10 mg tablet 10 mg PO BID 11/25/20 06/01/22 thiamine HCl (vitamin B1) 100 mg 100 mg PO DAILY 11/25/20 06/01/22 tablet vitamin E (dl, acetate) 180 mg PO 11/25/20 06/01/22 (400 unit) capsule cyanocobalamin (vitamin B-12) 1,000 mcg PO DAILY 05/31/21 06/01/22 1,000 mcg tablet (Vitamin B-12) loratadine 10 mg tablet (Allergy 10 mg PO DAILY 05/31/21 06/01/22 Relief (loratadine)) nystatin 100,000 unit/gram topical 1 appl topical BID-TID 05/31/21 06/01/22 powder Previous Rx's Medication Instructions Recorded albuterol sulfate 90 mcg/actuation 2 puff inhalation Q4-6H PRN for 11/06/20 aerosol inhaler wheezing #8.5 caps amlodipine 5 mg tablet (Norvasc) 5 mg PO DAILY #90 tabs 02/21/22 aspirin 81 mg tablet,delayed 81 mg PO DAILY #90 tabs 02/21/22 release (Adult Low Dose Aspirin) pravastatin 40 mg tablet 40 mg PO DAILY #90 tabs 02/21/22 nitroglycerin 0.4 mg sublingual 0.4 mg sublingual Q5M PRN chest 09/15/22 tablet pain #14 tabs Allergies Allergy/AdvReac Type Severity Reaction Status Date / Time hydrochlorothiazide Allergy Intermediate FELT Verified 06/01/22 11:22 [From ZESTORETIC] FAINT, syncope lisinopril [LISINOPRIL] Allergy Intermediate Cough Verified 06/01/22 11:22 Review of Systems Review of Systems: All other systems are reviewed and are negative Constitutional: Reports as per HPI and Reports no additional constitutional complaints Eyes: Reports as per HPI and Reports no additional eye complaints Reports system reviewed and no additional complaints, except as documented Cardiovascular: Reports as per HPI and Reports no additional cardiovascular complaints Respiratory: Reports as per HPI and Reports no additional respiratory complaints Gastrointestinal: Reports as per HPI and Reports no additional gastrointestinal complaints Genitourinary: Reports no additional female genitourinary complaints Musculoskeletal: Reports no additional musculoskeletal complaints Skin/Breast: Reports system reviewed and no additional complaints, except as docu Psychiatric: Reports no additional psychiatric complaints Endocrine: Reports no additional endocrine complaints Hematologic/Lymphatic: Reports no additional hematologic/lymphatic complaints Allergic/Immunologic: Reports no additional allergic/immunologic complaints Reports system reviewed and no additional complaints, except as documented and Reports Abnormal speech present [facility] Past Medical History Medical History Arthritis Atherosclerotic cardiovascular disease Cataract COPD (chronic obstructive pulmonary disease) Environmental and seasonal allergies High cholesterol HTN (hypertension) Low back pain Obesity (BMI 30-39.9) Restrictive lung disease Use of cane as ambulatory aid Wears dentures Surgical History History of ankle surgery History of lumpectomy of left breast History of tubal ligation Hx of colonoscopy Family History Family History Father Family history of cancer Mother Colon cancer Alzheimer disease Social History Social History 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 you 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 career development 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 a significant other at home: Yes (grandson age 13, son and daughter supportive) Do you presently have visiting nurse or other home services: No Alcohol intake: current Alcohol intake frequency: holidays/special occasions only Patient Tobacco Use Status: Former Tobacco user Quit Date: 2003 Tobacco use type: Cigarette Smoked in Last 30 Days: No Use of substances other than those prescribed or required for medical reasons: No Advance Directives: No Physical Exam Vital Signs: Vital Signs: Last Vital Signs Temp 97.7 F 09/17/22 01:40 Pulse 77 09/17/22 01:40 Resp 16 09/17/22 01:40 BP 104/71 09/17/22 01:40 Pulse Ox 96 09/17/22 01:40 O2 Del Method 09/17/22 01:40 BMI result Body Mass Index 33.4 Vital signs have been reviewed as appeared to be correct. Blood pressure normal. Heart rate normal. Respiration rate normal. Temperature normal. Oxygen saturation normal. Appearance: Alert. Oriented X3. No acute distress. Head: Normal external exam. Normocephalic. Atraumatic. No Valentine signs noted. No raccoon eyes noted Eyes: PERRLA. EOMI. Conjunctiva and sclera normal. Eyelids normal. ENT: TM's Normal. Pharynx normal. Uvula midline. Moist mucous membranes. No trismus noted. No drooling noted. No muffled voice noted. Neck: Normal inspection. Neck supple. FROM. No adenopathy. Thyroid Normal. No meningeal signs. No neck mass noted. CVS: Normal heart rate and rhythm. Heart sound normal. No murmurs noted. Pulses normal throughout. Respiratory: No respiratory distress. Painless inspiration. Breath sounds normal. No wheezes/rales/rhonchi noted. Chest nontender. No accessory muscle usage noted or decreased air movement noted. Abdomen: Soft and nontender. Bowel sounds normal in all 4 quadrants. No distention noted. No organomegaly noted. No visible injury noted. Back: No CVA tenderness. Full range of motion noted. Skin: Skin warm and dry. Normal skin color. Normal skin turgor. No rashes/lesions/lacerations noted. Extremities: No lower extremity edema. Extremities exhibit normal range of motion. Extremities nontender. Neuro: Oriented X 3. Cranial nerve exam: II-XII are grossly intact No motor deficit. No sensory deficit. Reflexes normal. Course Course Course Narrative: S/p mechanical fall 3 days ago after tripped and fell complaining of right-sided pain patient had a CT of the chest/abdomen/pelvis showing no acute fracture, patient also have unremarkable labs, no indication for hospitalization at this point patient was offered rehabilitation and physical therapy but patient because of the holiday would like to go home. Patient stated that her daughter is RN and she lives with her she will take care of her symptoms. Patient was instructed to use Tylenol if needed for pain and return of the symptoms is worsening. Medications Administered Discontinued Medications Generic Name Dose Route Start Last Admin Trade Name Freq PRN Reason Stop Dose Admin Oxycodone HCl 5 mg 09/17/22 04:25 09/17/22 05:20 Oxycodone Hcl Immed Release 5 Mg Tablet PO 09/17/22 04:26 5 mg ONCE ONE Administration Medical Decision Making Differential Diagnosis Differential Diagnoses: The differential diagnosis associated with the presentation includes (Rib fracture, pulmonary contusion, pulled muscle, liver contusion, intra-abdominal injury, cholelithiasis.) Lab Data MDM Lab Attestation statement: I reviewed the patient's lab results. Result Diagrams: 09/17/22 02:26 09/17/22 02:26 Labs: Lab Results 09/17/22 09/17/22 09/17/22 Range/Units 02:26 02:26 02:26 WBC 11.4 H (4.8-10.8) X10*3/uL RBC 4.08 L (4.20-5.50) X10*6/uL Hgb 11.7 L (12.0-16.0) g/dl Hct 37.2 (37.0-47.0) % MCV 91.2 (80.0-98.0) fL MCH 28.7 (27.0-33.0) pg MCHC 31.5 (31.0-35.0) g/dl RDW 14.2 (11.0-16.0) % Plt Count 356 (160-400) X10*3/uL MPV 9.1 L (9.4-12.3) fL Immature Gran % (Auto) 0.5 H (0.0-0.4) % Neut % (Auto) 67.2 (45-73) % Lymph % (Auto) 20.6 (20-40) % Coleman % (Auto) 8.2 (2-11) % Eos % (Auto) 3.1 (0-4) % Baso % (Auto) 0.4 (0-2) % Lymph # (Auto) 2.4 (1.2-4.9) X10*3/uL Coleman # (Auto) 0.9 (0.1-1.2) X10*3/uL Eos # (Auto) 0.4 (0.0-0.4) X10*3/uL Baso # (Auto) 0.1 (0.0-0.2) X10*3/uL Abs Immat Gran (auto) 0.06 H (0.00-0.03) X10*3/uL Absolute Neuts (auto) 7.7 (2.0-8.3) x10*3/uL Absolute Nucleated RBC 0.000 (0.0-0.012) X10*3/uL Nucleated RBC % (auto) 0.0 (0.0-0.2) /100WBC Sodium Cancelled 139 Potassium Cancelled 4.1 Chloride Cancelled 105 Carbon Dioxide Cancelled 25 Anion Gap Cancelled 13 BUN Cancelled 21 H Creatinine Cancelled 1.11 Estim Creat Clear Calc Cancelled 45.8 Estimated GFR Cancelled 47 Random Glucose Cancelled 132 H Calcium Cancelled 9.5 Total Bilirubin Cancelled 0.5 Direct Bilirubin 0.2 (0.0-0.5) mg/dL AST Cancelled 15 ALT Cancelled 10 Alkaline Phosphatase Cancelled 88 Troponin I High Sens (<3.5-17.0) ng/L B-Natriuretic Peptide (<100) pg/mL Total Protein Cancelled 7.8 Albumin Cancelled 4.0 Lipase Cancelled 26 Urine Color Urine Appearance Urine pH (5.0-9.0) Ur Specific [place] (1.005-1.025) Urine Protein (Neg-Trace) mg/dL Urine Glucose (UA) (Negative) mg/dL Urine Ketones (Negative) mg/dL Urine Blood (Negative) Urine Nitrite (Negative) Ur Leukocyte Esterase (Negative) Urine RBC (0-2) /HPF Urine WBC (0-5) /HPF Ur Squamous Epith Cells (0-2) /HPF Urine Bacteria (None Seen) Hyaline Casts (0-2) /LPF 09/17/22 09/17/22 09/17/22 Range/Units 02:26 02:26 03:38 WBC (4.8-10.8) X10*3/uL RBC (4.20-5.50) X10*6/uL Hgb (12.0-16.0) g/dl Hct (37.0-47.0) % MCV (80.0-98.0) fL MCH (27.0-33.0) pg MCHC (31.0-35.0) g/dl RDW (11.0-16.0) % Plt Count (160-400) X10*3/uL MPV (9.4-12.3) fL Immature Gran % (Auto) (0.0-0.4) % Neut % (Auto) (45-73) % Lymph % (Auto) (20-40) % Coleman % (Auto) (2-11) % Eos % (Auto) (0-4) % Baso % (Auto) (0-2) % Lymph # (Auto) (1.2-4.9) X10*3/uL Coleman # (Auto) (0.1-1.2) X10*3/uL Eos # (Auto) (0.0-0.4) X10*3/uL Baso # (Auto) (0.0-0.2) X10*3/uL Abs Immat Gran (auto) (0.00-0.03) X10*3/uL Absolute Neuts (auto) (2.0-8.3) x10*3/uL Absolute Nucleated RBC (0.0-0.012) X10*3/uL Nucleated RBC % (auto) (0.0-0.2) /100WBC Sodium Potassium Chloride Carbon Dioxide Anion Gap BUN Creatinine Estim Creat Clear Calc Estimated GFR Random Glucose Calcium Total Bilirubin Direct Bilirubin (0.0-0.5) mg/dL AST ALT Alkaline Phosphatase Troponin I High Sens 6.6 (<3.5-17.0) ng/L B-Natriuretic Peptide 129 H (<100) pg/mL Total Protein Albumin Lipase Urine Color Yellow Urine Appearance Hazy Urine pH 6.0 (5.0-9.0) Ur Specific [place] 1.025 (1.005-1.025) Urine Protein Negative (Neg-Trace) mg/dL Urine Glucose (UA) Negative (Negative) mg/dL Urine Ketones Negative (Negative) mg/dL Urine Blood Negative (Negative) Urine Nitrite Negative (Negative) Ur Leukocyte Esterase Trace H (Negative) Urine RBC 3-5 H (0-2) /HPF Urine WBC 6-10 H (0-5) /HPF Ur Squamous Epith Cells 0-2 (0-2) /HPF Urine Bacteria Trace (None Seen) Hyaline Casts 0-2 (0-2) /LPF Radiology Impression Discussion of test interpretation with radiology: I have reviewed the radiologist's reading. Tests considered The following testing was considered but not selected: I considered patient placement to physical therapy or rehab but patient declined because her daughter is a nurse and will take care of her. Discharge Plan Discharge Clinical Impression: Chest wall contusion, Abdominal wall contusion Patient Disposition: Home, Self-Care Instructions: Contusion in Adults (ED) Prescriptions: No Action albuterol sulfate 90 mcg/actuation HFA aerosol inhaler 2 puff inhalation Q4-6H PRN (Reason: for wheezing) Qty: 8.5 3RF amlodipine [Norvasc] 5 mg tablet 5 mg PO DAILY Qty: 90 3RF aspirin [Adult Low Dose Aspirin] 81 mg tablet,delayed release (DR/EC) 81 mg PO DAILY Qty: 90 3RF pravastatin 40 mg tablet 40 mg PO DAILY Qty: 90 3RF nitroglycerin 0.4 mg tablet, sublingual 0.4 mg sublingual Q5M PRN (Reason: chest pain) Qty: 14 2RF Rx Instructions: do not exceed 3 doses per episode memantine 10 mg tablet 10 mg PO BID gabapentin 100 mg capsule 100 mg PO TID thiamine HCl (vitamin B1) 100 mg tablet 100 mg PO DAILY cholecalciferol (vitamin D3) 25 mcg (1,000 unit) tablet 25 mcg PO DAILY vitamin E (dl, acetate) 400 unit capsule PO budesonide-formoterol 160-4.5 mcg/actuation HFA aerosol inhaler inhalation anastrozole 1 mg tablet 1 mg PO DAILY cyanocobalamin (vitamin B-12) [Vitamin B-12] 1,000 mcg tablet 1,000 mcg PO DAILY nystatin 100,000 unit/gram powder 1 appl topical BID-TID loratadine [Allergy Relief (loratadine)] 10 mg tablet 10 mg PO DAILY Referrals: Brii West, [employer] [Primary Care Provider] -
[2022-09-17 02:32] LABS: MANUAL DIFF FLAG NO
[2022-09-17 02:33] LABS: Basophils Absolute Auto 0.1 X10*3/uL (0.0-0.2); Basophils Percent Auto 0.4 % (0-2); Eosinophils Absolute Auto 0.4 X10*3/uL (0.0-0.4); Eosinophils Percent Auto 3.1 % (0-4); Hematocrit 37.2 % (37.0-47.0); Hemoglobin 11.7 g/dl (12.0-16.0); Imm Gran Abs Auto 0.06 X10*3/uL (0.00-0.03); Imm Gran Pct Auto 0.5 % (0.0-0.4); Lymphocytes Absolute Auto 2.4 X10*3/uL (1.2-4.9); Lymphocytes Percent Auto 20.6 % (20-40); Mean Corpuscular HGB Conc 31.5 g/dl (31.0-35.0); Mean Corpuscular Hemoglobin 28.7 pg (27.0-33.0); Mean Corpuscular Volume 91.2 fL (80.0-98.0); Mean Platelet Volume 9.1 fL (9.4-12.3); Monocytes Absolute Auto 0.9 X10*3/uL (0.1-1.2); Monocytes Percent Auto 8.2 % (2-11); Neutrophils Absolute Auto 7.7 x10*3/uL (2.0-8.3); Neutrophils Percent Auto 67.2 % (45-73); Platelet Count 356 X10*3/uL (160-400); Red Blood Count 4.08 X10*6/uL (4.20-5.50); Red Cell Distribution Width 14.2 % (11.0-16.0); White Blood Count 11.4 X10*3/uL (4.8-10.8)
[2022-09-17 02:51] LABS: Alanine Aminotransferase 10 U/L (0-31); Alkaline Phosphatase 88 U/L (39-117); Anion Gap 13 (12-20); Aspartate Amino Transferase 15 U/L (5-31); Bilirubin Direct 0.2 mg/dL (0.0-0.5); Bilirubin Total 0.5 mg/dL (0.0-1.0); Blood Urea Nitrogen 21 mg/dL (9-16); Calcium 9.5 mg/dL (8.4-10.2); Carbon Dioxide 25 mmol/L (22-29); Chloride 105 mmol/L (96-108); Creatinine Clr Calc Pharmacy 45.8; Estimated Glomerular Filt Rate 47; Glucose Random 132 mg/dL (60-115); Lipase 26 U/L (8-78); Potassium 4.1 mmol/L (3.3-5.1); Sodium 139 mmol/L (135-145); Total Protein 7.8 g/dL (6.5-8.0)
[2022-09-17 02:53] LABS: B Type Natriuretic Peptide 129 pg/mL (<100); Troponin-I High Sensitivity 6.6 ng/L (<3.5-17.0)
--- NOTE | 2022-09-17 03:08 | PC.NURSE ---
Pt is alert and oriented. Patient is resting quietly while watching tv. No apparent distress.
[2022-09-17 03:48] LABS: Appearance Urine Hazy; Color Urine Yellow; Glucose Urine UA Negative (Negative); Leukocyte Esterase Urine Trace (Negative); Nitrite Urine Negative (Negative); Specific Gravity - Urine 1.025 (1.005-1.025); UMIC TRIGGER UACC YES; Urine Blood Negative (Negative); Urine Ketones Negative (Negative); Urine Protein Negative (Neg-Trace)
[2022-09-17 03:53] LABS: Bacteria Urine Trace (None Seen); Hyaline Casts Urine 0-2 /LPF (0-2); Squamous Epithelial Cell Urine 0-2 /HPF (0-2); UACC Culture Trigger YES
--- NOTE | 2022-09-17 05:37 | PC.NURSE ---
Discharge instructions given and explained to pt. Patient ambulates safely and independently. No apparent distress.
[2022-09-17 05:46] VITALS: BP 153/58; PULSE 65; RESP 17; TEMP 36.6; O2SAT 96
== END 2022-09-17 05:37 | disposition home or self-care (01) ==
PROVIDERS: Emergency Provider Emergency Medicine; PCP Nurse Practitioner Family
DX: S20.213A Contusion of bilateral front wall of thorax, initial encounter (principal); S30.1XXA Contusion of abdominal wall, initial encounter; R06.02 Shortness of breath; M54.6 Pain in thoracic spine; W01.10XA Fall on same level from slipping, tripping and stumbling with subsequent striking against unspecified object, initial encounter; Y93.9 Activity, unspecified; Y92.9 Unspecified place or not applicable; Y99.9 Unspecified external cause status; Z79.899 Other long term (current) drug therapy
CPT/HCPCS: 36415; 71250; 74176; 80048; 80076; 81001; 83690; 83880; 84484; 85025; 87086; 99284

== ENCOUNTER → 2022-12-04 10:44 | Outpatient (BNVA) | payer MEDICARE, SELFPAY | PROVIDERS: PCP Nurse Practitioner Family; Visit Provider Internal Medicine | DX: J44.9 Chronic obstructive pulmonary disease, unspecified (principal); J98.4 Other disorders of lung; E66.9 Obesity, unspecified; Z68.33 Body mass index [BMI] 33.0-33.9, adult | CPT/HCPCS: 99212 ==

== ENCOUNTER → 2023-03-19 09:41 | Outpatient (BNVA) | payer MEDICARE, SELFPAY | PROVIDERS: PCP Nurse Practitioner Family; Visit Provider Internal Medicine ==

== ENCOUNTER 2023-04-24 12:12 | Outpatient (AMB) | payer MEDICARE, SELFPAY ==
[2023-04-24 12:33] VITALS: BP 142/72; PULSE 95; BMI 34.0
--- NOTE | 2023-04-24 12:33 | A.OFFVIS_ITS ---
Intake Vital Signs 04/24/23 12:33 Height 5 ft 5 in Weight 204 lb 9.423 oz BMI 34.0 BP 142/72 H Blood Pressure Location Lt brachial Position Sitting Pulse 95 Intake Visit Reasons: 1 yr fu Intake Note: 1 year follow up w/ EKG K 9 Handler/ Deputy Required: No Accompanied by: Daughter Allergies hydrochlorothiazide [From ZESTORETIC] Allergy (Intermediate, Verified 04/24/23 12:36) FELT FAINT, syncope lisinopril [LISINOPRIL] Allergy (Intermediate, Verified 04/24/23 12:36) Cough Medication List - Last Reconciled 04/24/23 by Gary Mathew MD albuterol sulfate 90 mcg/actuation 2 puffs inhalation Q4-6H PRN alendronate 70 mg PO QWEEK amlodipine (Norvasc) 5 mg PO DAILY aspirin (Adult Low Dose Aspirin) 81 mg PO DAILY budesonide-formoterol 160-4.5 mcg/actuation inhalation cholecalciferol (vitamin D3) 25 mcg PO DAILY cyanocobalamin (vitamin B-12) (Vitamin B-12) 1,000 mcg PO DAILY loratadine (Allergy Relief (loratadine)) 10 mg PO DAILY memantine 10 mg PO BID nitroglycerin 0.4 mg sublingual Q5M PRN nystatin 1 appl topical BID-TID pravastatin 40 mg PO DAILY thiamine HCl (vitamin B1) 100 mg PO DAILY vitamin E (dl, acetate) PO HPI HPI Comments History of Present Illness Details Marge returns for follow-up regarding coronary disease. In the past, she was admitted for chest discomfort. 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 She is being treated for stable coronary disease. She is a former smoker and has COPD. Her son had also of suspected myocardial infarction but there was no autopsy performed. Her daughter comes this time. 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 She states that her primary care physician had told her that heart rate was too fast. EKG today shows sinus rhythm at 95/Min but frequent PVCs. Patient herself does not have any clear-cut angina. Nonspecific left-sided discomfort at random times. Otherwise, seems to be getting along okay. She also has significant pulmonary disease. [facility] Medical History Arthritis Atherosclerotic cardiovascular disease Cataract COPD (chronic obstructive pulmonary disease) Environmental and seasonal allergies High cholesterol HTN (hypertension) Low back pain Obesity (BMI 30-39.9) Restrictive lung disease Use of cane as ambulatory aid Wears dentures Surgical History History of ankle surgery History of lumpectomy of left breast History of tubal ligation Hx of colonoscopy Family History Father Family history of cancer Mother Colon cancer Alzheimer disease Social History Are you a primary caretaker grounds to a significant other at home: Yes (grandson age 13, son and daughter supportive) Do you presently have visiting nurse or other home services: No Alcohol intake: current Alcohol intake frequency: holidays/special occasions only Patient Tobacco Use Status: Former Tobacco user Quit Date: 2003 Tobacco use type: Cigarette Review of Systems Const Denies weakness ENT Denies dizziness Card Denies chest pain, Denies chest pain with activity, Denies syncope, Denies rapid heart rate, Denies pedal edema, Denies edema, Denies leg edema, Denies lightheadedness, Denies palpitations, Denies dyspnea, Denies dyspnea on exertion and Denies orthopnea Resp Denies cough, Denies dyspnea and Denies dyspnea on exertion GI Denies hematochezia and Denies change in stool character Musc Denies abnormal gait, Denies muscle cramps, Denies muscle weakness, Denies numbness, Denies radiating pain into limb and Denies tingling Neuro Denies abnormal gait, Denies dizziness, Denies syncope, Denies numbness, Denies tingling and Denies weakness Endo Denies palpitations Physical Exam Vital Signs: Last Vital Signs Pulse 95 04/24/23 12:33 BP 142/72 H 04/24/23 12:33 BMI result Body Mass Index 34.0 Const General: comfortable and no acute distress Orientation/consciousness: patient oriented x3 HEENT Other: Unremarkable Head: Yes normal to inspection Neck Neck: Yes normal visual inspection Chest Chest palpation & inspection: normal inspection of the chest Resp Auscultation: clear to auscultation bilaterally Cardio Palpation: normal PMI Heart sounds: S1 normal heart sound present, S2 normal heart sound present, no gallops, Murmur heart sound present systolic II/ and at the right sternal border and no rubs GI Palpation (GI): Soft to palpation Back/Spine/Pelvis Other: unremarkable Skin General skin exam: no rashes or lesions noted Neuro General: patient oriented x3 Extrem General: Yes normal to inspection Psych Mental Status: mental status grossly normal Office Procedures EKG Details: EKG with sinus rhythm at 95/Min; frequent premature ventricular contractions; nonspecific ST-T changes. [id number], Complete Assessment & Plan Assessment & Plan (1) Atherosclerotic cardiovascular disease: Code(s): I25.10 - Atherosclerotic heart disease of [place] coronary artery without angina pectoris Plan: Echocardiogram 2019 with normal LVEF, 60-65%; basal inferior and basal inferior septal akinesis and mild valvular calcifications. Myocardial perfusion imaging study 2019 shows probable old infarct along the inferior wall, but no ischemia. She does not have any overt symptoms. We had talked about diagnostic cardiac catheterization in the past but she was not really interested. Again discussed today, but still not too keen. She may remain on aspirin and statins. In the past, LDLs in the 60s to 80 range. If she gets any anginal-type symptoms, would need diagnostic catheterization but she states she would rather not want any procedures at all. (2) Essential hypertension: Code(s): I10 - Essential (primary) hypertension Plan: She is on amlodipine. No changes. (3) PVC (premature ventricular contraction): Code(s): I49.3 - Ventricular premature depolarization Plan: PVCs noted on EKG today. She really does not feeling of this. May use low-dose beta-blockers considering the fact the blood pressure is also higher side. Plan Discussed with daughter who came for appointment. She agrees with plan. Orders: Orders CA echo transthoracic complete 6 Months I25.10 - Atherosclerotic heart disease of [place] coronary artery without angina pectoris Medications: New metoprolol succinate ER (Toprol XL) 25 mg PO DAILY 90 tabs 3RF Coding Level of Care Code Est Pt Level 4 (22216) Diagnoses Atherosclerotic cardiovascular disease I25.10 Essential hypertension I10 PVC (premature ventricular contraction) I49.3 CPT Codes EKG - CPT: 09413-[id number], Complete ([id number])
== END 2023-04-24 13:01 | disposition home or self-care (01) ==
PROVIDERS: PCP Nurse Practitioner Family; Visit Provider Internal Medicine
DX: I25.10 Atherosclerotic heart disease of native coronary artery without angina pectoris (principal); I10 Essential (primary) hypertension; I49.3 Ventricular premature depolarization
CPT/HCPCS: 93010; 99214

== ENCOUNTER → 2023-04-24 12:12 | Outpatient (BNVA) | payer MEDICARE, SELFPAY | PROVIDERS: PCP Nurse Practitioner Family; Visit Provider Internal Medicine | DX: I25.10 Atherosclerotic heart disease of native coronary artery without angina pectoris (principal); I10 Essential (primary) hypertension; I49.3 Ventricular premature depolarization | CPT/HCPCS: 93005; 99212 ==

== ENCOUNTER 2023-06-04 11:09 | Outpatient (AMB) | payer MEDICARE, SELFPAY ==
--- NOTE | 2023-06-04 11:26 | MHC.OFFVIS ---
Intake Vital Signs 06/04/23 11:28 Height 5 ft 5 in Weight 201 lb BMI 33.4 BP 140/80 H Blood Pressure Location Lt brachial Position Sitting Pulse 43 L Pulse Source Pulse Oximeter Pulse Oximetry (%) 97 Oxygen Delivery Method Room Air Intake Visit Reasons: COPD Intake Note: pt is here for follow up and states she has been short of breath past few days, it usually occurs around the fall time. Correctional Substance Abuse Counselor Required: No Allergies hydrochlorothiazide [From ZESTORETIC] Allergy (Intermediate, Verified 06/04/23 11:53) FELT FAINT, syncope lisinopril [LISINOPRIL] Allergy (Intermediate, Verified 06/04/23 11:53) Cough Medication List - Last Reconciled 06/04/23 by Mini Martinez MD albuterol sulfate 90 mcg/actuation 2 puffs inhalation Q4-6H PRN alendronate 70 mg PO QWEEK amlodipine (Norvasc) 5 mg PO DAILY aspirin (Adult Low Dose Aspirin) 81 mg PO DAILY budesonide-formoterol 160-4.5 mcg/actuation inhalation loratadine (Allergy Relief (loratadine)) 10 mg PO DAILY memantine 10 mg PO BID metoprolol succinate ER (Toprol XL) 25 mg PO DAILY nitroglycerin 0.4 mg sublingual Q5M PRN nystatin 1 appl topical BID-TID pravastatin 40 mg PO DAILY vitamin E (dl, acetate) PO Do you need a note to return to daycare/school/sports/work: No HPI COPD HPI Details 78 years old very pleasant female is here for her routine follow-up. Currently due to change in the weather she is having increased amount of chest congestion with some cough and wheezing. She continues to use Symbicort 160-4.52 puffs b.i.d.. And uses ProAir once in a while. Overall has been stable, without any acute exacerbation. She remains overweight but it has been relatively unchanged. [facility] Medical History Obesity (BMI 30-39.9) Cataract Wears dentures Use of cane as ambulatory aid Arthritis Low back pain High cholesterol HTN (hypertension) Environmental and seasonal allergies Restrictive lung disease Atherosclerotic cardiovascular disease COPD (chronic obstructive pulmonary disease) Surgical History Hx of colonoscopy History of tubal ligation History of ankle surgery History of lumpectomy of left breast Family History Father Family history of cancer Mother Colon cancer Alzheimer disease Social History Are you a primary child care associate to a significant other at home: Yes (grandson age 13, son and daughter supportive) Do you presently have visiting nurse or other home services: No Alcohol intake: current Alcohol intake frequency: holidays/special occasions only Patient Tobacco Use Status: Former Tobacco user Quit Date: 2003 Tobacco use type: Cigarette Review of Systems Const All systems reviewed & are unremarkable except as noted in HPI and below Eyes Reports no additional complaints ENT Reports no additional complaints Card Denies chest pain, Denies irregular heart rhythm and Denies leg edema Resp Reports as per HPI GI Reports no additional complaints Reports no additional complaints Musc Reports back pain (MILD) Skin/Breast Reports system reviewed and no additional complaints, except as documented Neuro Reports no additional complaints and Reports memory loss (MILD) Psych Reports no additional complaints and Reports memory loss (MILD) Endo Reports no additional complaints Physical Exam Vital Signs: Last Vital Signs Pulse 43 L 06/04/23 11:28 BP 140/80 H 06/04/23 11:28 Pulse Ox 97 06/04/23 11:28 Oxygen Delivery Method Room Air 06/04/23 11:28 BMI result Body Mass Index 33.4 Const Other: Moderately overweight General: comfortable, no acute distress, alert and awake Orientation/consciousness: patient oriented x3 HEENT Head: Yes normal to inspection General nose exam: No nasal polyps present and No nasal discharge present Face and sinus: Yes sinuses nontender Mouth: oropharynx normal Throat: Yes posterior oropharynx normal Eyes General: appearance normal, both eyes and all related structures Neck Neck: Yes normal visual inspection, Yes no lymphadenopathy, Yes trachea midline and Yes no JVD Thyroid: Thyroid normal Chest Chest palpation & inspection: normal inspection of the chest, normal palpation of entire chest wall and no tenderness Resp Other: Percussion note resonant, breath sounds are distant with prolonged expiratory phase. No wheezes rhonchi or crepitations are heard on auscultation. Cardio Palpation: normal PMI Rate: regular rate Rhythm: regular rhythm Heart sounds: no gallops and no murmurs GI Palpation (GI): Soft to palpation, nontender, No hepatosplenomegaly present and no masses Auscultation: normal bowel sounds Back/Spine/Pelvis Thoracic/Lumbar Spine: thoracic and lumbar spine normal to inspection and thoraco-lumbar ROM limited Skin General skin exam: no rashes or lesions noted Neuro General: patient oriented x3 and no focal motor deficits Cranial nerves: Yes CN's II-XII intact bilaterally Extrem General: Yes normal to inspection, Yes no clubbing, cyanosis or edema and Yes no calf tenderness Psych Appearance: grossly normal and well kempt Speech and movement: Normal speech and movement present Assessment & Plan Assessment & Plan (1) Obesity (BMI 30-39.9): Comment: She is moderately obese. Denies symptoms of sleep apnea. She tries to lose weight but is not physically active. Code(s): E66.9 - Obesity, unspecified (2) Restrictive lung disease: Comment: PATIENT DOES HAVE MODERATE RESTRICTIVE DISORDER . THIS IS PROBABLY DUE TO HER BEING OVERWEIGHT. SHE HAS BEEN INSTRUCTED TO DO DEEP BREATHING EXERCISES 2 OR 3 TIMES A DAY REGULARLY. Code(s): J98.4 - Other disorders of lung (3) COPD (chronic obstructive pulmonary disease): Comment: PATIENT DOES HAVE MODERATELY SEVERE OBSTRUCTIVE AIRWAY DISORDER PER PREVIOUS SPIROMETRY. IT IS STAYING VERY STABLE. TX : ADVISED TO USE SYMBICORT 160-4.5 2 PUFF B.I.D., But may decrease to 1 puff b.i.d. when her symptoms are under good control INCREASE TO 2 PUFFS B.I.D. IF SHE BECOMES SYMPTOMATIC. USE ALBUTEROL HFA 2 PUFFS Q 4-6 HOURS ONLY P.R.N., Code(s): J44.9 - Chronic obstructive pulmonary disease, unspecified Medications: New budesonide-formoterol 80-4.5 mcg/actuation (Symbicort) 2 puffs inhalation Q12H 10.2 grams 5RF 30 days albuterol sulfate 90 mcg/actuation 2 puffs inhalation Q4-6H PRN 8.5 grams 3RF shortness of breath or wheezing 30 days Coding Level of Care Code Est Pt Level 3 (85432) Diagnoses Obesity (BMI 30-39.9) E66.9 Restrictive lung disease J98.4 COPD (chronic obstructive pulmonary disease) J44.9
[2023-06-04 11:28] VITALS: BP 140/80; PULSE 43; O2SAT 97; BMI 33.4
== END 2023-06-04 11:55 | disposition home or self-care (01) ==
PROVIDERS: PCP Nurse Practitioner Family; Visit Provider Internal Medicine
DX: E66.9 Obesity, unspecified (principal); J98.4 Other disorders of lung; J44.9 Chronic obstructive pulmonary disease, unspecified
CPT/HCPCS: 99213

== ENCOUNTER → 2023-06-04 11:09 | Outpatient (BNVA) | payer MEDICARE, SELFPAY | PROVIDERS: PCP Nurse Practitioner Family; Visit Provider Internal Medicine | DX: J44.9 Chronic obstructive pulmonary disease, unspecified (principal); J98.4 Other disorders of lung; E66.9 Obesity, unspecified; Z68.33 Body mass index [BMI] 33.0-33.9, adult; Z79.899 Other long term (current) drug therapy | CPT/HCPCS: 99212 ==

== ENCOUNTER → 2023-10-12 09:47 | Outpatient (REF) | payer MEDICARE, SELFPAY ==
--- NOTE | 2023-10-12 09:52 | CA_ITS ---
Transthoracic Echocardiogram Patient (Last, First, Middle): Marge Mcdowell H Gender: Female Date of : 1945 Age: 78 Procedure Date: 10/12/2023 Procedure Type: Transthoracic Echocardiogram Location: OP Height: 167.64 cm Weight: 89.36 kg BSA: 1.99 m2 Heart Rate: 146 bpm BP: 138 / 84 mmHg Echometer Engineer: Referring MD: Gary Mathew MD Symptoms: I25.10 - Atherosclerotic heart disease of [place] coronary artery without... Study Quality: Adequate w definity ECG Rhythm: Atrial Fibrillation with rapid ventricular rate Conclusions: - The left ventricular systolic function is severely decreased. The visually estimated ejection fraction is between 15-20%. - The basal inferior segment is akinetic. - The left atrium is moderately dilated. - There is moderate to severe mitral valve regurgitation. Findings Procedure Information Contrast agent, definity, is being given per protocol without apparent complications. Left Ventricle Normal left ventricular cavity size. There is mildly increased left ventricular wall thickness. The left ventricular systolic function is severely decreased. The visually estimated ejection fraction is between 15 20%. There is severe global hypokinesis. Diastolic function is indeterminate on the basis of available data. Wall Motion Rest Echo Findings The basal inferior segment is akinetic. Right Ventricle Normal right ventricular cavity size. There is moderately decreased right ventricular systolic function. Atria The left atrium is moderately dilated. The right atrium is mildly dilated. Aortic Valve There is a normal trileaflet aortic valve. There is mild calcification of the aortic valve. There is no aortic valve stenosis. There is no aortic valve regurgitation. Mitral Valve The mitral valve was not well visualized. There is moderate to severe mitral valve regurgitation. There is no mitral valve stenosis. Pulmonic Valve The pulmonic valve is likely normal. Tricuspid Valve There is mild to moderate tricuspid valve regurgitation. Mild pulmonary hypertension is present. Great Vessels The asc aorta is normal in size. Venous The inferior vena cava is normal in size and collapses less than 50% with inspiration. Pericardium/Pleural There is no evidence of pericardial effusion. Prior Study Comparison Significant changes compared to prior study dated: 05/26/2020. Decrease in LVEF; progression of mitral regurgitation. Measurements 2D Linear Measurements IVSd: 1.25 0.6-0.9/0.6-1.0 cm LVIDd: 4.54 3.9-5.3/4.2-5.9 cm LVIDd Index: 2.28 2.4-3.2/2.2-3.1 cm/m2 LVIDs: 4.23 2.0-3.6 cm LVPWd: 1.31 0.7-1.1 cm Ao Root: 2.90 2.1-3.5 cm LA Diam: 4.70 2.7-3.8/3.0-4.0 cm LAIDs Index: 2.36 1.5-2.3 cm/m2 LV Mass: 274.91 67-162/88-224 g LV Mass Index: 138.14 43-95/49-115 g/m2 LVOT Diam: 2.00 3.0+(-)1.3 cm 2D Systolic Function EF 4C: 19.50 >55% EF 2C: 18.80 >55% EF BiP: 21.80 >55% Mitral Valve MV Pk E: 1.18 MV Decel Time: 92.00 E'Lateral: 6.31 E'Medial: 5.33 E/E' Med: 22.10 E/E' Lat: 18.70 PHT: 27.00 MVA PHT: 8.15 Decel Jackson: 12.78 MR Vol - PW Dopp: 37.70 MR VTI: 1.30 MR ERO: 29.00 MR Alias Vinny: 0.38 MR RAD: 0.80 Aortic Valve AoV Pk Vinny: 1.16 AoV Mn Vinny: 0.74 AoV VTI: 0.17 AoV Pk Grad: 5.00 Aov Mn Grad: 3.00 ROBERT Cont.VTI: 1.60 LVOT LVOT Pk Vinny: 0.58 LVOT Mn Vinny: 0.35 LVOT VTI: 0.09 LVOT Pk Grad: 1.00 LVOT Mn Grad: 1.00 LVOT Diam: 2.00 LVOT Area: 3.14 Diastolic Function MV Pk E: 1.18 E'Medial: 5.33 E/E' Med: 22.10 E' Laterial: 6.31 E/E' Lat: 18.70 Right Ventricle TAPSE (mm): 13.00 TVS' Vinny: 6.00 Tricuspid Valve TR Pk Vinny: 2.93 TR Pk Grad: 34.00 RA Press: 8.00 RVSP: 42.00 Great Vessels Aorta Ao Root-2D: 2.90 2.0-3.7 cm Ao Asc: 2.90 2.1-3.4 cm Pulmonary Valve PV Pk Vinny: 0.75 Peak PV Grad: 2.00 Updated in Other Vendor System with Status of Final Gary Mathew MD electronically signed on 10/12/2023 12:49:25 PM with status of Final
== END ==
LOC: HO.CARD 09:47
PROVIDERS: PCP Nurse Practitioner Family; Visit Provider Internal Medicine
DX: I25.10 Atherosclerotic heart disease of native coronary artery without angina pectoris (principal)
CPT/HCPCS: 93306; Q9957

== ENCOUNTER 2023-10-12 11:20 | Inpatient (IN) | payer OTHER, SELFPAY ==
[2023-10-12] VITALS (16 sets, daily range): BP systolic 99–169; BP diastolic 56–98; PULSE 71–147; RESP 16–27; TEMP 36–37.1; O2SAT 88–98; BMI 32.8
--- NOTE | ~2023-10-12 | US_ITS ---
EXAMINATION: US RETROPERITONEAL LIMITED (RENAL ONLY) CLINICAL INFORMATION: Acute kidney injury. COMPARISON: CT abdomen and pelvis 09/17/2022. TECHNIQUE: Real-time imaging of the kidneys. FINDINGS: RIGHT KIDNEY: 9.6 x 4.3 x 5.0 cm (SAG x AP x TRV). The kidney is normal in size, contour, and echogenicity. Renal cortical thickness is normal. No calculi or focal parenchymal lesions. No hydronephrosis. LEFT KIDNEY: 8.3 x 5.0 x 4.3 cm (SAG x AP x TRV). Small kidney with relative atrophy of the upper pole the kidney which may be sequela of prior infection. This is unchanged from prior CT scan There is a new 1.4 cm calculus in the lower pole of the kidney without evidence of obstruction. There is a new 4 mm calculus in the upper pole without evidence of obstruction. No hydronephrosis. US/US renal BI IMPRESSION: Chronic left upper pole atrophy which may be sequela of remote infection or other insult. Nonobstructing left renal calculi. No hydronephrosis.
--- NOTE | ~2023-10-12 | XR_ITS ---
EXAMINATION: XR CHEST CLINICAL INFORMATION: 78-year-old female with palpitation COMPARISON: 05/04/2021 TECHNIQUE: Frontal view of the chest was obtained. FINDINGS: No significant abnormality is noted involving the heart, lungs, mediastinum, bony thorax or soft tissues. XR/XR chest 1V IMPRESSION: No active cardiopulmonary disease and no interval change
--- NOTE | 2023-10-12 11:44 | ECG_ITS ---
Test Reason : CHEST PAIN Blood Pressure : / mmHG Vent. Rate : 146 BPM Atrial Rate : 000 BPM P-R Int : 000 ms QRS Dur : 078 ms QT Int : 306 ms P-R-T Axes : 000 -04 225 degrees QTc Int : 476 ms Atrial flutter with rapid ventricular response ST & T wave abnormality, consider lateral ischemia Abnormal ECG When compared with ECG of 14-NOV-2021 16:55, Rhythm change Referred By: Wendy Campoverde Electronically Signed By:LAURA RAMOS
[2023-10-12 12:04] LABS: MANUAL DIFF FLAG NO
--- NOTE | 2023-10-12 12:09 | ED_ITS ---
HPI - Chest Pain General Chief Complaint: Chest Pain Stated Complaint: angiogram norris? Time Seen by Provider: 10/12/23 11:47 Source: patient and old records reviewed Mode of arrival: ambulatory Limitations: other (poor historian) History of Present Illness HPI narrative: 78 yo female with PMH of CAD - inf on ECHO, HTN, RLD, COPD reported afib here with c/o having ECHO today and having elevated HR and that she didn't feel well and has chest pain - she notes chest pain almost daily for 6 months and again this AM at rest with dyspnea. She has refused cath in past but tells me she is not aware she did that. MD complaint: chest pain Pertinent past history: coronary artery disease Onset (ago): month(s) (6) Timing of current episode: episodic Prior episodes: Yes Onset: during rest Pain location: substernal Pain radiation: none Severity: mild Quality: heaviness Relieving factors: nothing Exacerbating factors: nothing Associated symptoms: dyspnea Treatment prior to arrival: none Related Data Home Medications Medication Instructions Recorded Confirmed budesonide-formoterol HFA 160 inhalation 11/25/20 04/24/23 mcg-4.5 mcg/actuation aerosol inhaler memantine 10 mg tablet 10 mg PO BID 11/25/20 04/24/23 vitamin E (dl, acetate) 180 mg PO 11/25/20 04/24/23 (400 unit) capsule loratadine 10 mg tablet (Allergy 10 mg PO DAILY 05/31/21 04/24/23 Relief (loratadine)) nystatin 100,000 unit/gram topical 1 appl topical BID-TID 05/31/21 04/24/23 powder alendronate 70 mg tablet 70 mg PO QWEEK 12/04/22 04/24/23 Previous Rx's Medication Instructions Recorded albuterol sulfate 90 mcg/actuation 2 puff inhalation Q4-6H PRN for 11/06/20 aerosol inhaler wheezing #8.5 caps amlodipine 5 mg tablet (Norvasc) 5 mg PO DAILY #90 tabs 02/21/22 aspirin 81 mg tablet,delayed 81 mg PO DAILY #90 tabs 02/21/22 release (Adult Low Dose Aspirin) pravastatin 40 mg tablet 40 mg PO DAILY #90 tabs 02/21/22 nitroglycerin 0.4 mg sublingual 0.4 mg sublingual Q5M PRN chest 01/25/23 tablet pain #14 tabs metoprolol succinate 25 mg 25 mg PO DAILY #90 tabs 04/24/23 tablet,extended release 24 hr (Toprol XL) budesonide-formoterol HFA 80 2 puff inhalation Q12H 30 days 06/04/23 mcg-4.5 mcg/actuation aerosol #10.2 grams inhaler (Symbicort) albuterol sulfate 90 mcg/actuation 2 puff inhalation Q4-6H PRN 10/12/23 aerosol inhaler shortness of breath or wheezing 30 days #8.5 grams Allergies Allergy/AdvReac Type Severity Reaction Status Date / Time hydrochlorothiazide Allergy Intermediate FELT Verified 10/12/23 11:37 [From ZESTORETIC] FAINT, syncope lisinopril [LISINOPRIL] Allergy Intermediate Cough Verified 10/12/23 11:37 Review of Systems 2 Review of Systems: Constitutional : No Weight loss, No Fever, No Chills ENT/Mouth : No sore throat, No Rhinorrhea Eyes: No Eye Pain, No Swelling Cardiovascular : pos Chest Pain, pos SOB, no Dyspnea on Exertion, No Orthopnea, No Edema, No Palpitations Respiratory : No Cough, No Sputum Gastrointestinal : no Nausea, No Vomiting, No Diarrhea, No abdominal Pain, No Hematochezia, No Melena Genitourinary : No Dysuria, No Urinary Frequency Musculoskeletal : No joint pain, No Myalgias, No Joint Swelling Skin : No Skin Lesions, No rash Neuro : No Weakness, No Numbness, No Dizziness, No Headache Psych : No Anxiety/Panic, No Depression Heme/Lymph: No Bruising, No Lymphadenopathy Endocrine : No Polyuria, No Polydipsia All other systems reviewed and are negative PMFSH Past Medical History Attestation statement: The following information was validated with the patient. Source: old records reviewed Onset Date is defined in the Problem List Problems that require an onset date and time if occurred within 24 hrs of arrival to the ED Aortic Dissection and Rupture; Neurologic impairment; Cardiopulmonary Arrest; Endotracheal Intubation; Insertion or Replacement of Mechanical Circulatory Assist Device Medical History Obesity (BMI 30-39.9) Cataract Wears dentures Use of cane as ambulatory aid Arthritis Low back pain High cholesterol HTN (hypertension) Environmental and seasonal allergies Restrictive lung disease Atherosclerotic cardiovascular disease COPD (chronic obstructive pulmonary disease) Surgical History Hx of colonoscopy History of tubal ligation History of ankle surgery History of lumpectomy of left breast Family History Family History Father Family history of cancer Mother Colon cancer Alzheimer disease Social History Social History 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: Yes (grandson age 13, son and daughter supportive) Do you presently have visiting nurse or other home services: No Alcohol intake: current Alcohol intake frequency: holidays/special occasions only Patient Tobacco Use Status: Former Tobacco user Quit Date: 2003 Tobacco use type: Cigarette Advance Directives: No Advance Directives Information Provided: Yes Physical Exam 2 Vital Signs: Vital Signs: Last Vital Signs Temp 98.7 F 10/12/23 11:37 Pulse 146 H 10/12/23 13:15 Resp 16 10/12/23 12:50 BP 140/86 H 10/12/23 13:15 Pulse Ox 93 10/12/23 12:50 O2 Del Method Room Air 10/12/23 12:50 BMI result Body Mass Index 32.8 Appearance: Alert. Oriented X3. No acute distress. Eyes: Pupils equal, round and reactive to light. ENT: Pharynx normal. Neck: Normal inspection. Neck supple. CVS: tachycardic and irregular heart rate and rhythm. Pulses normal. Respiratory: No respiratory distress. Breath sounds normal. Abdomen: Soft and nontender. Skin: Skin warm and dry. Normal skin color. Normal skin turgor. Extremities: No lower extremity edema. No calf ttp Neuro: Oriented X 3. No motor deficit. No sensory deficit. Course Course Course Narrative: Cardiology - start eliquis 5mg aware of Cr and anemia - admit Medications Administered Generic Name Dose Route Start Last Admin Trade Name Freq PRN Reason Stop Dose Admin Diltiazem HCl 125 mg/ Sodium 125 mls @ 0 mls/hr 10/12/23 12:45 10/12/23 13:18 Chloride IVCONT 15 mg/hr .Q0M GUSTAVO 15 mls/hr Titration Protocol Per Protocol Discontinued Medications Generic Name Dose Route Start Last Admin Trade Name Viviana PRN Reason Stop Dose Admin Aspirin 243 mg 10/12/23 12:32 10/12/23 12:51 Aspirin 81 Mg Tab.Chew PO 10/12/23 12:33 243 mg ONCE ONE Administration Diltiazem HCl 10 mg 10/12/23 11:52 10/12/23 12:20 Diltiazem Hcl 50 Mg/10 Ml Vial IVPUSH 10/12/23 11:53 10 mg STAT STA Administration Medical Decision Making Medical Decision Making [facility] Narrative: 78 yo female with PMH of CAD - inf on ECHO, HTN, RLD, COPD reported afib here with rapid heart rate which she cannot feel - dyspnea and chest pain which is chronic and intermittent x 6 months at this time will need labs, CXR, COVID swab, IV dilt no signs of acute decompensated CHF - planned admit. She is not on a DOAC daughter who is RN reports hx of afib to ED RN but no mention in prior cards notes about afib Differential Diagnosis Differential Diagnoses: The differential diagnosis associated with the presentation includes afib and aflutter Admission/Observation Consideration of admission/observation: Escalation of care including admission/observation considered admit for further management Consult Healthcare Provider Management of the patient was discussed with: Hospitalist (will admit) and Residential Sales Consultant (adi) Lab Data [facility] Lab Attestation statement: I reviewed the patient's lab results. 10/12/23 12:00 10/12/23 12:00 Labs: Lab Results 10/12/23 10/12/23 Range/Units 12:00 12:03 WBC 11.5 H (4.8-10.8) X10*3/uL RBC 3.34 L (4.20-5.50) X10*6/uL Hgb 9.8 L (12.0-16.0) g/dl Hct 30.0 L (37.0-47.0) % MCV 89.8 (80.0-98.0) fL MCH 29.3 (27.0-33.0) pg MCHC 32.7 (31.0-35.0) g/dl RDW 14.3 (11.0-16.0) % Plt Count 422 H (160-400) X10*3/uL MPV 9.4 (9.4-12.3) fL Immature Gran % (Auto) 0.5 H (0.0-0.4) % Neut % (Auto) 69.9 (45-73) % Lymph % (Auto) 19.8 L (20-40) % [place] % (Auto) 8.1 (2-11) % Eos % (Auto) 1.0 (0-4) % Baso % (Auto) 0.7 (0-2) % Lymph # (Auto) 2.3 (1.2-4.9) X10*3/uL [place] # (Auto) 0.9 (0.1-1.2) X10*3/uL Eos # (Auto) 0.1 (0.0-0.4) X10*3/uL Baso # (Auto) 0.1 (0.0-0.2) X10*3/uL Abs Immat Gran (auto) 0.06 H (0.00-0.03) X10*3/uL Absolute Neuts (auto) 8.0 (2.0-8.3) x10*3/uL Absolute Nucleated RBC 0.000 (0.0-0.012) X10*3/uL Nucleated RBC % (auto) 0.0 (0.0-0.2) /100WBC PT 13.6 H (11.1-13.3) SEC INR 1.1 (0.9-1.1) Sodium 139 (135-145) mmol/L Potassium 3.9 (3.3-5.1) mmol/L Chloride 105 (96-108) mmol/L Carbon Dioxide 24 (22-29) mmol/L Anion Gap 14 (12-20) BUN 25 H (9-16) mg/dL Creatinine 1.66 H (0.5-1.4) mg/dL Estim Creat Clear Calc 29.8 Estimated GFR 30 Random Glucose 116 H (60-115) mg/dL Calcium 9.4 (8.4-10.2) mg/dL Magnesium 2.2 (1.6-2.6) mg/dL Total Bilirubin 0.5 (0.0-1.0) mg/dL Direct Bilirubin 0.2 (0.0-0.5) mg/dL AST 18 (5-31) U/L ALT 10 (0-31) U/L Alkaline Phosphatase 68 (39-117) U/L Troponin I High Sens 276.5 H* (<3.5-17.0) ng/L B-Natriuretic Peptide 1008 H (<100) pg/mL Total Protein 8.0 (6.5-8.0) g/dL Albumin 3.6 (3.5-5.0) g/dL TSH 1.70 (0.32-4.0) uIU/mL COVID-19 ([facility]DEN) Negative (Negative) COVID-19 Clin Com See Note Independent Interpretation I performed an independent interpretation of an: EKG and Plain X-Ray Interpretation: Rate: 146 Rhythm: irregular narrow [place]: left Normal QRS complex. ST T wave : no GRACIELA, ST depressions in lateral leads qTC: 476 prior studies: changes from prior The study has been interpreted contemporaneously by me. . Radiology Impression Discussion of test interpretation with radiology: I have reviewed the radiologist's reading. External Record Review External record reviewed: Inpatient record Critical Care Time Critical Care Time Critical Care Time: Yes Total Critical Care Time: 60 Attestation: repeat IV diltiazem, cardiology consult I attest to this time spent taking care of the patient Discharge Plan Discharge Clinical Impression: Elevated troponin Chest pain Qualifiers: Chest pain type: unspecified Qualified Code(s): R07.9 - Chest pain, unspecified Atrial flutter Qualifiers: Atrial flutter type: unspecified Qualified Code(s): I48.92 - Unspecified atrial flutter Patient Disposition: Admitted As Inpatient
[2023-10-12 12:11] LABS: Basophils Absolute Auto 0.1 X10*3/uL (0.0-0.2); Basophils Percent Auto 0.7 % (0-2); Eosinophils Absolute Auto 0.1 X10*3/uL (0.0-0.4); Hemoglobin 9.8 g/dl (12.0-16.0); Imm Gran Abs Auto 0.06 X10*3/uL (0.00-0.03); Imm Gran Pct Auto 0.5 % (0.0-0.4); Lymphocytes Absolute Auto 2.3 X10*3/uL (1.2-4.9); Lymphocytes Percent Auto 19.8 % (20-40); Mean Corpuscular HGB Conc 32.7 g/dl (31.0-35.0); Mean Corpuscular Hemoglobin 29.3 pg (27.0-33.0); Mean Corpuscular Volume 89.8 fL (80.0-98.0); Mean Platelet Volume 9.4 fL (9.4-12.3); Monocytes Absolute Auto 0.9 X10*3/uL (0.1-1.2); Monocytes Percent Auto 8.1 % (2-11); Neutrophils Percent Auto 69.9 % (45-73); Platelet Count 422 X10*3/uL (160-400); Red Blood Count 3.34 X10*6/uL (4.20-5.50); Red Cell Distribution Width 14.3 % (11.0-16.0); White Blood Count 11.5 X10*3/uL (4.8-10.8)
[2023-10-12 12:13] LABS: INTERNATIONAL NORM RATIO 1.1 (0.9-1.1); Prothrombin Time 13.6 SEC (11.1-13.3)
[2023-10-12] MEDS: dilTIAZem HCL 50 MG/10 ML VIAL 10 MG IVPUSH (12:20)
[2023-10-12 12:26] LABS: B Type Natriuretic Peptide 1008 pg/mL (<100)
[2023-10-12 12:27] LABS: Alanine Aminotransferase 10 U/L (0-31); Albumin Level 3.6 g/dL (3.5-5.0); Alkaline Phosphatase 68 U/L (39-117); Anion Gap 14 (12-20); Aspartate Amino Transferase 18 U/L (5-31); Bilirubin Direct 0.2 mg/dL (0.0-0.5); Bilirubin Total 0.5 mg/dL (0.0-1.0); Blood Urea Nitrogen 25 mg/dL (9-16); Calcium 9.4 mg/dL (8.4-10.2); Carbon Dioxide 24 mmol/L (22-29); Chloride 105 mmol/L (96-108); Creatinine Clr Calc Pharmacy 29.8; Estimated Glomerular Filt Rate 30; Glucose Random 116 mg/dL (60-115); Magnesium 2.2 mg/dL (1.6-2.6); Potassium 3.9 mmol/L (3.3-5.1); Sodium 139 mmol/L (135-145)
[2023-10-12 12:33] LABS: Troponin-I High Sensitivity 276.5 ng/L (<3.5-17.0)
[2023-10-12 12:43] LABS: COVID-19 Test Negative (Negative); IDNOW Serial# 08D9AD1C
[2023-10-12] MEDS: Aspirin 81 MG TAB.CHEW 243 MG PO (12:51)
[2023-10-12] MEDS: dilTIAZem HCL 125 MG in 0.9 % Sodium Chloride 100 ML 10 MG IVCONT (12:54)
--- NOTE | 2023-10-12 12:58 | PC.NURSE ---
Cardiology at bedside, ? plan for cardioversion.
--- NOTE | 2023-10-12 13:17 | PM.CNCAR ---
History of Present Illness History of Present Illness Date of Service: 10/12/23 Chief complaint: angiogram norris? Narrative: This is a cardiology consultation regarding shortness of breath. Patient actually came to get an echo today and was found to be short of breath. Subsequently, she was sent to the ER for further evaluation. Then found to be in atrial flutter with rapid rate. It seems she got some Cardizem and that did not help her much and she was still going quite fast and hence admitted. Patient states that she has not been feeling well for the last several months. Off and on chest pains, shortness of breath, tiredness at different times. She was last seen by me in April last year. 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 Also has history of COPD. Review of Systems Review of Systems: Yes all other systems are reviewed and are negative Constitutional: Constitutional: Reports as per HPI and Reports no additional constitutional complaints Eyes: Eyes: Reports as per HPI and Denies no additional eye complaints ENT: Denies system reviewed and no additional complaints, except as documented and Reports as per HPI Cardiovascular: Cardiovascular: Reports as per HPI, Reports no additional cardiovascular complaints, Denies acrocyanosis, Denies cool extremities, Denies chest pain, Denies leg edema, Denies lightheadedness, Denies palpitations and Reports dyspnea Respiratory: Respiratory: Reports as per HPI, Denies no additional respiratory complaints and Reports dyspnea Gastrointestinal: Gastrointestinal: Reports as per HPI and Denies no additional gastrointestinal complaints Genitourinary: Genitourinary: Reports as per HPI Musculoskeletal: Musculoskeletal: Reports no additional musculoskeletal complaints and Reports as per HPI Integumentary/Breasts: Skin/Breast: Reports system reviewed and no additional complaints, except as docu Neurologic: Reports system reviewed and no additional complaints, except as documented and Reports as per HPI Psychiatric: Psychiatric: Reports no additional psychiatric complaints and Reports as per HPI Endocrine: Endocrine: Reports no additional endocrine complaints, Reports as per HPI and Denies palpitations Hematologic/Lymphatic: Hematologic/Lymphatic: Reports no additional hematologic/lymphatic complaints and Reports as per HPI Allergic/Immunologic: Allergic/Immunologic: Reports no additional allergic/immunologic complaints and Reports as per HPI [facility] Past Medical History Medical History Obesity (BMI 30-39.9) Cataract Wears dentures Use of cane as ambulatory aid Arthritis Low back pain High cholesterol HTN (hypertension) Environmental and seasonal allergies Restrictive lung disease Atherosclerotic cardiovascular disease COPD (chronic obstructive pulmonary disease) Family History Family History Father Family history of cancer Mother Colon cancer Alzheimer disease Surgical History Surgical History Hx of colonoscopy History of tubal ligation History of ankle surgery History of lumpectomy of left breast Social History Social History Are you a primary child care to a significant other at home: Yes (grandson age 13, son and daughter supportive) Do you presently have visiting nurse or other home services: No Alcohol intake: current Alcohol intake frequency: holidays/special occasions only Patient Tobacco Use Status: Former Tobacco user Quit Date: 2003 Tobacco use type: Cigarette Advance Directives: No Advance Directives Information Provided: Yes Meds Allergies Allergy/AdvReac Type Severity Reaction Status Date / Time hydrochlorothiazide Allergy Intermediate FELT Verified 10/12/23 11:37 [From ZESTORETIC] FAINT, syncope lisinopril [LISINOPRIL] Allergy Intermediate Cough Verified 10/12/23 11:37 Active Medications: Current Medications Diltiazem HCl 125 mg/ Sodium (Chloride) 125 mls @ 0 mls/hr IVCONT .Q0M [facility]; Protocol Last Admin: 10/12/23 12:54 Dose: 10 mg/hr, 10 mls/hr Home Medications Medication Instructions Recorded Confirmed Last Taken Type budesonide-formoterol HFA 160 inhalation 11/25/20 04/24/23 12/05/21 History mcg-4.5 mcg/actuation aerosol inhaler memantine 10 mg tablet 10 mg PO BID 11/25/20 04/24/23 Unknown History vitamin E (dl, acetate) 180 mg PO 11/25/20 04/24/23 Unknown History (400 unit) capsule loratadine 10 mg tablet (Allergy 10 mg PO DAILY 05/31/21 04/24/23 Unknown History Relief (loratadine)) nystatin 100,000 unit/gram topical 1 appl topical BID-TID 05/31/21 04/24/23 11/23/19 History powder alendronate 70 mg tablet 70 mg PO QWEEK 12/04/22 04/24/23 Unknown History Physical Exam Vital Signs: Vital Signs: Last Vital Signs Temp 98.7 F 10/12/23 11:37 Pulse 146 H 10/12/23 12:50 Resp 16 10/12/23 12:50 BP 143/95 H 10/12/23 12:50 Pulse Ox 93 10/12/23 12:50 O2 Del Method Room Air 10/12/23 12:50 BMI result Body Mass Index 32.8 Const: General: comfortable and no acute distress Orientation/consciousness: patient oriented x3 HEENT: Other: Unremarkable Head: Yes normal to inspection Neck: Neck: Yes normal visual inspection Chest: Chest palpation & inspection: normal inspection of the chest Resp: Auscultation: crackles Cardio: Palpation: normal PMI Heart sounds: S1 normal heart sound present, S2 normal heart sound present, no gallops, no murmurs and no rubs GI: Palpation (GI): Soft to palpation Back/Spine/Pelvis: Other: unremarkable Skin: General skin exam: no rashes or lesions noted Neuro: General: patient oriented x3 Extrem: General: Yes normal to inspection Psych: Mental Status: mental status grossly normal Objective Labs and Meds 10/12/23 12:00 10/12/23 12:00 Lab results: Laboratory Results - last 24 hr 10/12/23 10/12/23 12:00 12:03 WBC 11.5 H RBC 3.34 L Hgb 9.8 L Hct 30.0 L MCV 89.8 MCH 29.3 MCHC 32.7 RDW 14.3 Plt Count 422 H MPV 9.4 Immature Gran % (Auto) 0.5 H Neut % (Auto) 69.9 Lymph % (Auto) 19.8 L [place] % (Auto) 8.1 Eos % (Auto) 1.0 Baso % (Auto) 0.7 Lymph # (Auto) 2.3 [place] # (Auto) 0.9 Eos # (Auto) 0.1 Baso # (Auto) 0.1 Abs Immat Gran (auto) 0.06 H Absolute Neuts (auto) 8.0 Absolute Nucleated RBC 0.000 Nucleated RBC % (auto) 0.0 PT 13.6 H INR 1.1 Sodium 139 Potassium 3.9 Chloride 105 Carbon Dioxide 24 Anion Gap 14 BUN 25 H Creatinine 1.66 H Estim Creat Clear Calc 29.8 Estimated GFR 30 Random Glucose 116 H Calcium 9.4 Magnesium 2.2 Total Bilirubin 0.5 Direct Bilirubin 0.2 AST 18 ALT 10 Alkaline Phosphatase 68 Troponin I High Sens 276.5 H* B-Natriuretic Peptide 1008 H Total Protein 8.0 Albumin 3.6 TSH 1.70 COVID-19 ([facility]) Negative COVID-19 Clin Com See Note ECG Interpretation: EKG with atrial flutter at a rate of 146/Min; lateral mild ST depression. Assessment and Plan (1) Atrial flutter with rapid ventricular response: Status: Acute Currently on Cardizem drip. This was started before we knew her new EF which is reduced. Hence we can wean and stop the drip and rather use of beta-bernadette like metoprolol 25 mg to 50 mg q.6 hourly. Also give 250 mcg digoxin now and another dose few hours later. Because of renal insufficiency may not be able to get a full load. Give 5 mg of Eliquis now and then do it b.i.d.. Discussed about MILA/cardioversion we can do that tomorrow. She already had a slice of lunch sandwich and anesthesia would rather wait till tomorrow. (2) Acute systolic (congestive) heart failure: Status: Acute Echocardiogram today shows severely reduced LVEF. There is also moderate to severe mitral regurgitation. Could be a consequence of atrial flutter with rapid response and tachycardia induced cardiomyopathy. Underlying CAD also possible. Diuresis as tolerated. Eventually, guideline based medical therapy. Troponin elevation could also be from atrial flutter with rapid rate as well as CHF. If willing, eventually diagnostic catheterization. Plan Discussed with Dr. Lu. Discussed with daughter/son. Procedures Date of Service Date of Service: 10/12/23
[2023-10-12] MEDS: Apixaban 5 MG TABLET PO (13:51)
--- NOTE | 2023-10-12 13:51 | P.HPHOSP_ITS ---
History of Present Illness Date of Service: 10/12/23 Chief Complaint: sob 78F PMH presumed CAD (has not had cath), copd, restrictive sumi disease (likely due to obesity), osteoporosis, htn presented with sob. patient states she has been feeling generally for past 3 weeks. shortness of breath, poor exercise tolerance. denies chest pain, fever, chills. was getting outpatient echo, noted to be very sob, rapid afib, and low EF 15-20%. Review of Systems 2 Review of Systems: Yes all other systems are reviewed and are negative [facility] Medical History Obesity (BMI 30-39.9) Cataract Wears dentures Use of cane as ambulatory aid Arthritis Low back pain High cholesterol HTN (hypertension) Environmental and seasonal allergies Restrictive lung disease Atherosclerotic cardiovascular disease COPD (chronic obstructive pulmonary disease) Family History Father Family history of cancer Mother Colon cancer Alzheimer disease Surgical History Hx of colonoscopy History of tubal ligation History of ankle surgery History of lumpectomy of left breast Social History 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: Yes (grandson age 13, son and daughter supportive) Do you presently have visiting nurse or other home services: No Alcohol intake: current Alcohol intake frequency: holidays/special occasions only Patient Tobacco Use Status: Former Tobacco user Quit Date: 2003 Tobacco use type: Cigarette Advance Directives: No Advance Directives Information Provided: Yes Meds Allergies Allergy/AdvReac Type Severity Reaction Status Date / Time hydrochlorothiazide Allergy Intermediate FELT Verified 10/12/23 11:37 [From ZESTORETIC] FAINT, syncope lisinopril [LISINOPRIL] Allergy Intermediate Cough Verified 10/12/23 11:37 Active Medications: Current Medications Apixaban (Apixaban 5 Mg Tablet) 5 mg PO BID GUSTAVO Digoxin (Digoxin 0.5 Mg/2 Ml Ampul) 0.25 mg IVPUSH Q6H GUSTAVO Stop: 10/12/23 20:01 Furosemide (Furosemide 40 Mg/4 Ml Vial) 40 mg IVPUSH BID@0900,1800 [facility]; Protocol Diltiazem HCl 125 mg/ Sodium (Chloride) 125 mls @ 0 mls/hr IVCONT .Q0M [facility]; Protocol Last Titration: 10/12/23 13:51 Dose: 10 mg/hr, 10 mls/hr Metoprolol Tartrate (Metoprolol Tartrate 25 Mg Tablet) 25 mg PO QID [facility]; Protocol Home Medications Medication Instructions Recorded Confirmed Last Taken Type budesonide-formoterol HFA 160 2 inh inhalation BID 11/25/20 10/12/23 12/05/21 History mcg-4.5 mcg/actuation aerosol inhaler memantine 10 mg tablet 10 mg PO BID 11/25/20 10/12/23 Unknown History loratadine 10 mg tablet (Allergy 10 mg PO DAILY 05/31/21 10/12/23 Unknown History Relief (loratadine)) alendronate 70 mg tablet 70 mg PO MO 12/04/22 10/12/23 Unknown History calcium carbonate 600 mg-vitamin 1 tab PO BID 10/12/23 10/12/23 Unknown History D3 5 mcg (200 unit) tablet fluoxetine 20 mg capsule 20 mg PO DAILY 10/12/23 10/12/23 Unknown History Physical Exam 2 Vital Signs and Narrative: Vital Signs: Last Vital Signs Temp 98.7 F 10/12/23 11:37 Pulse 100 10/12/23 13:51 Resp 27 H 10/12/23 13:45 BP 99/56 L 10/12/23 13:45 Pulse Ox 88 L 10/12/23 13:45 O2 Del Method Room Air 10/12/23 13:45 BMI result Body Mass Index 32.8 General: AO X 3, no acute distress Resp: Crackles bilateral, no accessory muscles used CVS: S1,S2,irregular rapid GI: soft, non tender, non distended Neuro: motor grossly intact, alert Psych: appropriate affect, appropriate insight Results Labs 10/12/23 12:00 10/12/23 12:00 Labs: Laboratory Results - last 24 hr 10/12/23 10/12/23 12:00 12:03 MCV 89.8 MCH 29.3 MCHC 32.7 RDW 14.3 Plt Count 422 H MPV 9.4 Immature Gran % (Auto) 0.5 H Neut % (Auto) 69.9 Lymph % (Auto) 19.8 L [place] % (Auto) 8.1 Eos % (Auto) 1.0 Baso % (Auto) 0.7 Lymph # (Auto) 2.3 [place] # (Auto) 0.9 Eos # (Auto) 0.1 Baso # (Auto) 0.1 Abs Immat Gran (auto) 0.06 H Absolute Neuts (auto) 8.0 Absolute Nucleated RBC 0.000 Nucleated RBC % (auto) 0.0 PT 13.6 H INR 1.1 Anion Gap 14 Estim Creat Clear Calc 29.8 Estimated GFR 30 Random Glucose 116 H Calcium 9.4 Magnesium 2.2 Total Bilirubin 0.5 Direct Bilirubin 0.2 AST 18 ALT 10 Alkaline Phosphatase 68 B-Natriuretic Peptide 1008 H Total Protein 8.0 Albumin 3.6 TSH 1.70 COVID-19 ([facility]) Negative COVID-19 Clin Com See Note Assessment and Plan (1) Acute systolic (congestive) heart failure: Status: Acute Plan 78F PMH presumed CAD (has not had cath), copd, restrictive sumi disease (likely due to obesity), osteoporosis, htn Acute hypoxic respiratory failure secondary to acute systolic CHF IV Lasix Wean O2 as tolerated Will need ischemic workup at some point New onset atrial fibrillation with rapid ventricular response Lopressor, Eliquis, dig Plan for tramaine cardioversion10/13/23 Elevated creatinine RADHA versus CKD 3 Monitor Presumed CAD Will need ischemic workup COPD and restrictive lung disease due to obesity Weight loss recommended Continue inhalers Hypertension Metoprolol DVT prophylaxis-on Eliquis Full code Patient with CHF and rapid ventricular response due to new onset AFib, requiring IV diuretics, close monitoring of heart rate, likely cardioversion, therefore, expected to require at least 2 midnights inpatient Quality Stroke Does the patient have a stroke diagnosis?: No VTE Prior VTE?: No VTE Risk Level:: Medical - moderate - high VTE Device Contraindication: Treatment Not Indicated VTE Drug Contraindication: N/A - Med Ordered
--- NOTE | 2023-10-12 14:19 | PC.NURSE ---
Pt now Afib 80's-90's, dilt drip titrated down. Pt sating 88% on RA, 2L applied. MD Lu made aware of pt's HR and oxygen saturations. Pt has digoxin IV, PO lopressor and diltiazem drip ordered. Per MD, stop cardizem drip, give lopressor, do not give digoxin. Pt and family updated on plan.
[2023-10-12 14:34] LABS: Troponin-I High Sensitivity 249.5 ng/L (<3.5-17.0)
[2023-10-12] MEDS: Metoprolol Tartrate 25 MG TABLET PO ×3 (14:46→21:27)
--- NOTE | 2023-10-12 14:48 | PC.NURSE ---
After shutting off cardizem drip, pt's HR back to 146 Aflutter. MD Lu made aware, instructed to give IV digoxin (do not restart drip).
[2023-10-12] MEDS: Digoxin 0.5 MG/2 ML AMPUL 0.25 MG IVPUSH ×2 (14:56→21:27)
--- NOTE | 2023-10-12 15:15 | PHA.MEDREC ---
Pharmacy Consult ? Medication Reconciliation Pharmacy has completed the medication reconciliation.
--- NOTE | 2023-10-12 15:59 | PC.NURSE ---
Reports taken from Magda CUMMINS assumed care at 1515. Pt resting on stretcher, A&Ox3 skin pwd respirations even unlabored. VSS. Denies pain, offers no complaints. HR 77 A flutter on monitor. NPO, pt and family aware.
[2023-10-12] MEDS: 0.9 % Sodium Chloride Flush 3 ML SYRINGE IVFLUSH ×2 (17:06→22:20)
--- NOTE | 2023-10-12 17:13 | PC.NURSE ---
Report given, pt awaiting transport to floor.
--- NOTE | 2023-10-12 18:07 | MHC.EDTECH ---
PATIENT WAS ASSISTED TO WALK TO BATHROOM ,VOID AND BACK TO BED .
--- NOTE | 2023-10-12 18:13 | PC.NURSE ---
Pt ambulated to bathroom with tech- became SOB and tachycardic on exertion, after returning to bed HR back down to 92-98 Flutter on monitor. Denies SOB at rest, denies chest pain. Will utilize bedside commode or purewick for future bathroom needs. Dinner tray provided to pt. NPO at midnight.
--- NOTE | 2023-10-12 18:17 | PC.NURSE ---
Transporter at bedside to bring pt to [facility].
[2023-10-12] MEDS: Furosemide 40 MG/4 ML VIAL IVPUSH (18:50)
[2023-10-12] MEDS: Memantine HCl 10 MG TABLET PO (21:27)
[2023-10-13] VITALS (14 sets, daily range): BP systolic 137–190; BP diastolic 52–79; PULSE 57–90; RESP 14–22; TEMP 36–37.2; O2SAT 84–97
--- NOTE | 2023-10-13 | ECG_ITS ---
Test Reason : chest pain Blood Pressure : / mmHG Vent. Rate : 071 BPM Atrial Rate : 071 BPM P-R Int : 178 ms QRS Dur : 094 ms QT Int : 430 ms P-R-T Axes : 062 057 159 degrees QTc Int : 467 ms Sinus rhythm with frequent Premature ventricular complexes Left ventricular hypertrophy with repolarization abnormality ( Sokolow-Sylvester ) Abnormal ECG When compared with ECG of 12-OCT-2023 11:53, Previous ECG has undetermined rhythm, needs review ST no longer depressed in Inferior leads ST more depressed Lateral leads T wave inversion more evident in Anterolateral leads Referred By: Kanika Up Electronically Signed By:LAURA RAMOS
[2023-10-13 06:17] LABS: Hematocrit 31.2 % (37.0-47.0); Mean Corpuscular HGB Conc 32.1 g/dl (31.0-35.0); Mean Corpuscular Hemoglobin 29.2 pg (27.0-33.0); Mean Corpuscular Volume 91.2 fL (80.0-98.0); Mean Platelet Volume 9.7 fL (9.4-12.3); Platelet Count 420 X10*3/uL (160-400); Red Blood Count 3.42 X10*6/uL (4.20-5.50); Red Cell Distribution Width 14.1 % (11.0-16.0); White Blood Count 10.7 X10*3/uL (4.8-10.8)
[2023-10-13 06:33] LABS: Anion Gap 15 (12-20); Blood Urea Nitrogen 24 mg/dL (9-16); Calcium 9.2 mg/dL (8.4-10.2); Carbon Dioxide 28 mmol/L (22-29); Chloride 102 mmol/L (96-108); Creatinine Clr Calc Pharmacy 35.1; Estimated Glomerular Filt Rate 36; Glucose Fasting 96 mg/dL (60-99); Potassium 3.6 mmol/L (3.3-5.1); Sodium 141 mmol/L (135-145)
[2023-10-13] MEDS: Fluticasone/Vilanterol 200/25 BLST.W.DEV 1 PUFF INHALE (08:33)
[2023-10-13] MEDS: Pravastatin Sodium 40 MG TABLET PO (08:47)
[2023-10-13] MEDS: Furosemide 40 MG/4 ML VIAL IVPUSH ×2 (08:47→17:07)
[2023-10-13] MEDS: Memantine HCl 10 MG TABLET PO ×2 (08:47→20:37)
[2023-10-13] MEDS: Metoprolol Tartrate 25 MG TABLET PO ×2 (08:47→20:37)
[2023-10-13] MEDS: Apixaban 5 MG TABLET PO ×2 (08:48→20:37)
[2023-10-13] MEDS: 0.9 % Sodium Chloride Flush 3 ML SYRINGE IVFLUSH ×3 (08:48→20:37)
[2023-10-13] MEDS: Loratadine 10 MG TABLET PO (08:48)
--- NOTE | 2023-10-13 09:08 | MHC.SHP ---
Pre-Procedural Eval Section A Date of Service: 10/13/23 The patient is an INPATIENT: Yes Section B Chief Complaint: chf, afib Allergies: Allergies Allergy/AdvReac Type Severity Reaction Status Date / Time hydrochlorothiazide Allergy Intermediate FELT Verified 10/12/23 11:37 [From ZESTORETIC] FAINT, syncope lisinopril [LISINOPRIL] Allergy Intermediate Cough Verified 10/12/23 11:37 Plan I have reviewed the history and physical and performed a pertinent physical examination on my patient. No changes have occurred unless specified. Time Spent With Patient Time: Total time managing care of this patient today ____ minutes.
--- NOTE | 2023-10-13 09:14 | P.PNIM_ITS ---
Subjective Subjective Date of Service: 10/13/23 Interval History: feeling bettter, rate better controlled Physical Exam 2 Vital Signs: Vital Signs: Last Vital Signs Temp 97.3 F 10/13/23 07:37 Pulse 90 10/13/23 08:35 Resp 16 10/13/23 08:35 BP 147/77 H 10/13/23 07:37 Pulse Ox 96 10/13/23 07:37 O2 Del Method Nasal Cannula 10/13/23 07:37 O2 Flow Rate 2 10/13/23 07:37 BMI result Body Mass Index 32.8 General: AO X 3, no acute distress Resp: CTA bilateral, no accessory muscles used CVS: S1,S2, irregular GI: soft, non tender, non distended Neuro: motor grossly intact, alert Psych: appropriate affect, appropriate insight Objective Data Active Medications Albuterol Sulfate (Albuterol Sulfate 90 Mcg 8 Gm Inhaler) 2 puff INHALE Q4H PRN PRN Reason: for wheezing Apixaban (Apixaban 5 Mg Tablet) 5 mg PO BID [facility] Last Admin: 10/13/23 08:48 Dose: 5 mg Documented By: LIANNE Fluoxetine HCl (Fluoxetine Hcl 20 Mg Capsule) 20 mg PO DAILY [facility] Fluticasone/Vilanterol (Fluticasone/Vilanterol 200/25 Blst.W.Dev) 1 puff INHALE RDAILY [facility] Last Admin: 10/13/23 08:33 Dose: 1 puff Documented By: BLACONNIE Furosemide (Furosemide 40 Mg/4 Ml Vial) 40 mg IVPUSH BID@0900,1800 [facility]; Protocol Last Admin: 10/13/23 08:47 Dose: 40 mg Documented By: LIANNE Loratadine (Loratadine 10 Mg Tablet) 10 mg PO DAILY [facility] Last Admin: 10/13/23 08:48 Dose: 10 mg Documented By: LIANNE Memantine (Memantine Hcl 10 Mg Tablet) 10 mg PO BID [facility] Last Admin: 10/13/23 08:47 Dose: 10 mg Documented By: LIANNE Metoprolol Tartrate (Metoprolol Tartrate 25 Mg Tablet) 25 mg PO QID [facility]; Protocol Last Admin: 10/13/23 08:47 Dose: 25 mg Documented By: LIANNE Pravastatin Sodium (Pravastatin Sodium 40 Mg Tablet) 40 mg PO DAILY [facility] Last Admin: 10/13/23 08:47 Dose: 40 mg Documented By: LIANNE Sodium Chloride (0.9 % Sodium Chloride Flush 3 Ml Syringe) 3 ml IVFLUSH QSHIFT [facility] Last Admin: 10/13/23 08:48 Dose: 3 ml Documented By: LIANNE Labs 10/13/23 05:41 10/13/23 05:41 Labs: Laboratory Results - last 24 hr 10/12/23 10/12/23 10/13/23 12:00 12:03 05:41 MCV 89.8 91.2 MCH 29.3 29.2 MCHC 32.7 32.1 RDW 14.3 14.1 Plt Count 422 H 420 H MPV 9.4 9.7 Immature Gran % (Auto) 0.5 H Neut % (Auto) 69.9 Lymph % (Auto) 19.8 L [place] % (Auto) 8.1 Eos % (Auto) 1.0 Baso % (Auto) 0.7 Lymph # (Auto) 2.3 [place] # (Auto) 0.9 Eos # (Auto) 0.1 Baso # (Auto) 0.1 Abs Immat Gran (auto) 0.06 H Absolute Neuts (auto) 8.0 Absolute Nucleated RBC 0.000 0.000 Nucleated RBC % (auto) 0.0 0.0 PT 13.6 H INR 1.1 Anion Gap 14 15 Estim Creat Clear Calc 29.8 35.1 Estimated GFR 30 36 Random Glucose 116 H Fasting Glucose 96 Calcium 9.4 9.2 Magnesium 2.2 Total Bilirubin 0.5 Direct Bilirubin 0.2 AST 18 ALT 10 Alkaline Phosphatase 68 B-Natriuretic Peptide 1008 H Total Protein 8.0 Albumin 3.6 TSH 1.70 COVID-19 ([facility]) Negative COVID-19 Clin Com See Note Assessment and Plan (1) Elevated troponin: Status: Acute Plan 78F PMH presumed CAD (has not had cath), copd, restrictive sumi disease (likely due to obesity), osteoporosis, htn Acute hypoxic respiratory failure secondary to acute systolic CHF IV Lasix Wean O2 as tolerated Will need ischemic workup at some point New onset atrial fibrillation with rapid ventricular response Lopressor, Eliquis, dig rate now controlled Plan for tramaine cardioversion today, 10/13/23 Elevated creatinine RADHA versus CKD 3 Monitor Presumed CAD Will need ischemic workup COPD and restrictive lung disease due to obesity Weight loss recommended Continue inhalers Hypertension Metoprolol DVT prophylaxis-on Eliquis Full code reason for continued hospitalization: iv diuresis, plan for cardioversion Quality Stroke Does the patient have a stroke diagnosis?: No VTE Prior VTE?: No VTE Risk Level:: Medical - moderate - high VTE Device Contraindication: Treatment Not Indicated VTE Drug Contraindication: N/A - Med Ordered
--- NOTE | 2023-10-13 09:54 | P.CONAN_ITS ---
HPI - Anesthesia Eval Consult details Narrative: Atril flutter PMFSH Active Problems Active Problems: All Active Problems (Updated 10/12/23 @ 13:46 by Wendy Campoverde DO) Elevated troponin (Acute) Acute systolic (congestive) heart failure (Acute) Atrial flutter with rapid ventricular response (Acute) Atrial flutter (Acute) Chest pain (Acute) PVC (premature ventricular contraction) (Acute) Obesity (BMI 30-39.9) (Acute) Malignant neoplasm of upper-outer quadrant of left female breast (Acute) Essential hypertension (Acute) Restrictive lung disease (Acute) Atherosclerotic cardiovascular disease (Acute) COPD (chronic obstructive pulmonary disease) (Acute) Past Medical History Medical History Obesity (BMI 30-39.9) Cataract Wears dentures Use of cane as ambulatory aid Arthritis Low back pain High cholesterol HTN (hypertension) Environmental and seasonal allergies Restrictive lung disease Atherosclerotic cardiovascular disease COPD (chronic obstructive pulmonary disease) Family History Family History Father Family history of cancer Mother Colon cancer Alzheimer disease Family history of problems with anesthesia: No Surgical History Surgical History Hx of colonoscopy History of tubal ligation History of ankle surgery History of lumpectomy of left breast History of Problems with Anesthesia: No Social History Social History Household Members: Family Housing: House 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 (grandson age 13, son and daughter supportive) Do you presently have visiting nurse or other home services: No Alcohol intake: current Alcohol intake frequency: does not drink Patient Tobacco Use Status: Former Tobacco user Quit Date: 20 years ago Tobacco use type: Cigarette Meds Allergies Allergy/AdvReac Type Severity Reaction Status Date / Time hydrochlorothiazide Allergy Intermediate FELT Verified 10/12/23 11:37 [From ZESTORETIC] FAINT, syncope lisinopril [LISINOPRIL] Allergy Intermediate Cough Verified 10/12/23 11:37 Active Medications: Current Medications Albuterol Sulfate (Albuterol Sulfate 90 Mcg 8 Gm Inhaler) 2 puff INHALE Q4H PRN PRN Reason: for wheezing Apixaban (Apixaban 5 Mg Tablet) 5 mg PO BID [facility] Last Admin: 10/13/23 08:48 Dose: 5 mg Fluoxetine HCl (Fluoxetine Hcl 20 Mg Capsule) 20 mg PO DAILY [facility] Last Admin: 10/13/23 09:53 Dose: Not Given Fluticasone/Vilanterol (Fluticasone/Vilanterol 200/25 Blst.W.Dev) 1 puff INHALE RDAILY [facility] Last Admin: 10/13/23 08:33 Dose: 1 puff Furosemide (Furosemide 40 Mg/4 Ml Vial) 40 mg IVPUSH BID@0900,1800 [facility]; Protocol Last Admin: 10/13/23 08:47 Dose: 40 mg Loratadine (Loratadine 10 Mg Tablet) 10 mg PO DAILY [facility] Last Admin: 10/13/23 08:48 Dose: 10 mg Memantine (Memantine Hcl 10 Mg Tablet) 10 mg PO BID [facility] Last Admin: 10/13/23 08:47 Dose: 10 mg Metoprolol Tartrate (Metoprolol Tartrate 25 Mg Tablet) 25 mg PO QID [facility]; Protocol Last Admin: 10/13/23 08:47 Dose: 25 mg Pravastatin Sodium (Pravastatin Sodium 40 Mg Tablet) 40 mg PO DAILY [facility] Last Admin: 10/13/23 08:47 Dose: 40 mg Sodium Chloride (0.9 % Sodium Chloride Flush 3 Ml Syringe) 3 ml IVFLUSH QSHIFT [facility] Last Admin: 10/13/23 08:48 Dose: 3 ml Home Medications Medication Instructions Recorded Confirmed Last Taken Type budesonide-formoterol HFA 160 2 inh inhalation BID 11/25/20 10/12/23 10/11/23 History mcg-4.5 mcg/actuation aerosol inhaler memantine 10 mg tablet 10 mg PO BID 11/25/20 10/12/23 10/11/23 History loratadine 10 mg tablet (Allergy 10 mg PO DAILY 05/31/21 10/12/23 10/11/23 History Relief (loratadine)) alendronate 70 mg tablet 70 mg PO MO 12/04/22 10/12/23 10/11/23 History calcium carbonate 600 mg-vitamin 1 tab PO BID 10/12/23 10/12/23 10/11/23 History D3 5 mcg (200 unit) tablet fluoxetine 20 mg capsule 20 mg PO DAILY 10/12/23 10/12/23 10/11/23 History Exam Height,Weight and Vital Signs: Height 5 ft 5 in Weight 89.358 kg Last Vital Signs Temp 97.3 F 10/13/23 07:37 Pulse 90 10/13/23 08:35 Resp 16 10/13/23 08:35 BP 147/77 H 10/13/23 07:37 Pulse Ox 96 10/13/23 07:37 O2 Del Method Nasal Cannula 10/13/23 07:37 O2 Flow Rate 2 10/13/23 07:37 Pertinent Lab Results Pertinent Lab Results: Laboratory Tests 10/12/23 10/12/23 10/12/23 12:00 12:03 14:03 WBC 11.5 H RBC 3.34 L Hgb 9.8 L Hct 30.0 L MCV 89.8 MCH 29.3 MCHC 32.7 RDW 14.3 Plt Count 422 H MPV 9.4 Immature Gran % (Auto) 0.5 H Neut % (Auto) 69.9 Lymph % (Auto) 19.8 L [place] % (Auto) 8.1 Eos % (Auto) 1.0 Baso % (Auto) 0.7 Lymph # (Auto) 2.3 [place] # (Auto) 0.9 Eos # (Auto) 0.1 Baso # (Auto) 0.1 Abs Immat Gran (auto) 0.06 H Absolute Neuts (auto) 8.0 Absolute Nucleated RBC 0.000 Nucleated RBC % (auto) 0.0 PT 13.6 H INR 1.1 Sodium 139 Potassium 3.9 Chloride 105 Carbon Dioxide 24 Anion Gap 14 BUN 25 H Creatinine 1.66 H Estim Creat Clear Calc 29.8 Estimated GFR 30 Random Glucose 116 H Fasting Glucose Calcium 9.4 Magnesium 2.2 Total Bilirubin 0.5 Direct Bilirubin 0.2 AST 18 ALT 10 Alkaline Phosphatase 68 Troponin I High Sens 276.5 H* 249.5 H* B-Natriuretic Peptide 1008 H Total Protein 8.0 Albumin 3.6 TSH 1.70 COVID-19 ([facility]) Negative COVID-19 Clin Com See Note 10/13/23 05:41 WBC 10.7 RBC 3.42 L Hgb 10.0 L Hct 31.2 L MCV 91.2 MCH 29.2 MCHC 32.1 RDW 14.1 Plt Count 420 H MPV 9.7 Immature Gran % (Auto) Neut % (Auto) Lymph % (Auto) [place] % (Auto) Eos % (Auto) Baso % (Auto) Lymph # (Auto) [place] # (Auto) Eos # (Auto) Baso # (Auto) Abs Immat Gran (auto) Absolute Neuts (auto) Absolute Nucleated RBC 0.000 Nucleated RBC % (auto) 0.0 PT INR Sodium 141 Potassium 3.6 Chloride 102 Carbon Dioxide 28 Anion Gap 15 BUN 24 H Creatinine 1.41 H Estim Creat Clear Calc 35.1 Estimated GFR 36 Random Glucose Fasting Glucose 96 Calcium 9.2 Magnesium Total Bilirubin Direct Bilirubin AST ALT Alkaline Phosphatase Troponin I High Sens B-Natriuretic Peptide Total Protein Albumin TSH COVID-19 ([facility]) COVID-19 Clin Com Airway Mallampati Class: II TM Dist: >3cm Neck ROM: Full Denture: Upper and Lower Loose/Missing/Broken Teeth: No Heart: IRRR Lungs: CTA Assessment and Plan Assessment Anesthesia Assessment: Anesthesia Plan Discussed and Chart Reviewed Final Anesthetic Review Family History of Problems with Anesthesia: No History of Problems with Anesthesia: No NPO: Yes ASA Class: III Final Preanesthetic Review: Meds/Allgs Chart Reviewed and Anes Risks/Benef Reviewed Patient Risk: High Procedure Risk: Low Anesthetic Plan Anesthetic Plan: MAC: Disposition: Standard PACU
--- NOTE | 2023-10-13 10:00 | CA_ITS ---
Transesophageal Echocardiogram Patient (Last, First, Middle): Marge Mcdowell H Gender: Female Date of : 1945 Age: 78 Procedure Date: 10/13/2023 Procedure Type: Transesophageal Echocardiogram Location: [facility] [place] Height: 165.1 cm Weight: 89.36 kg BSA: 1.97 m2 Heart Rate: bpm Manager Developmental: Referring MD: Gary Mathew MD Symptoms: atrial fibrillation Conclusion: ??? The left ventricular systolic function is severely decreased. The visually estimated ejection fraction is between 20-25%. ??? There is no evidence of a thrombus in the left atrial appendage. ??? There is moderate mitral valve regurgitation. Findings Procedure Information Pre MILA oral cavity was checked and revealed no overcrowding. The adult 3D probe was passed with no difficulty. Left Ventricle Normal left ventricular cavity size. The left ventricular systolic function is severely decreased. The visually estimated ejection fraction is between 20-25%. There is evidence of regional wall motion abnormalities. Wall Motion Transesophageal Echo Findings The basal inferior segment is akinetic. Right Ventricle Normal right ventricular cavity size and systolic function. Atria There is no evidence of a thrombus in the left atrial appendage. There is no evidence of interatrial shunt. No spontaneous echo contrast. Acceptable velocities at the mouth of appendage. Aortic Valve There is a normal trileaflet aortic valve. There is no aortic valve stenosis. There is trace (trivial) aortic valve regurgitation. Mitral Valve The posterior mitral leaflet has restricted mobility. There is moderate mitral valve regurgitation. There is no mitral valve stenosis. Pulmonic Valve The pulmonic valve was not well visualized. Tricuspid Valve There is mild tricuspid valve regurgitation. Great Vessels The aortic annulus and sinuses of valsalva are normal in size. Moderate plaque is seen in the arch. Pericardium/Pleural There is no evidence of pericardial effusion. Prior Study Comparison No significant change compared to prior study dated: 10/12/2023. Measurements Mitral Valve MR Vol - PW Dopp: 35.65 MR VTI: 1.55 MR ERO: 23.00 MR Alias Vinny: 0.39 MR RAD: 0.70 Updated by Gary Mathew on 01:21 PM with Status of Final Gary Mathew MD electronically signed on 10/14/2023 1:21:31 PM with status of Final
--- NOTE | 2023-10-13 11:07 | ECG_ITS ---
Test Reason : post cardioversion Blood Pressure : / mmHG Vent. Rate : 065 BPM Atrial Rate : 065 BPM P-R Int : 192 ms QRS Dur : 094 ms QT Int : 466 ms P-R-T Axes : 062 051 176 degrees QTc Int : 484 ms Sinus rhythm with frequent Premature ventricular complexes in a pattern of bigeminy Abnormal ECG When compared to the previous EKG of 12 oct 2023, rhythm change Referred By: Kanika Up Electronically Signed By:LAURA RAMOS
--- NOTE | 2023-10-13 11:08 | HO.CARDIVERS ---
Cardioversion Procedure Note Cardioversion Date of Procedure: 10/13/2023 Ordering Provider: Dr. Mathew Performing Provider: Dr. Mathew Indication for Procedure: Atrial flutter with rapid rate Pre-Op Diagnosis: Atrial flutter Post-Op Diagnosis: Sinus rhythm MILA findings (if MILA Performed): See separate report History: See full consultation Consent: Informed consent obtained. Procedure: After informed consent was obtained, patient was taken to the operating room. She was positioned appropriately. A MILA was initially completed and that showed no evidence of left atrial appendage thrombus. Subsequently, 120 joules of synchronized shock was administered with pads in the anteroposterior position. She converted to sinus bradycardia with some PVCs. Complications: None. Impression: Successful cardioversion from atrial flutter to sinus rhythm. Recommendations: Start amiodarone. Continue beta-blockers but can decrease the dose. Continue anticoagulation. Discussed with daughter. Discussed with hospitalist.
[2023-10-13] MEDS: Amiodarone HCL 200 MG TABLET 400 MG PO ×2 (11:31→20:46)
--- NOTE | 2023-10-13 12:43 | PM.PNCARD ---
Subjective Subjective Date of Service: 10/13/23 Interval history: Seen before and during MILA/ cardioversion. Review of Systems Review of Systems Yes all other systems are reviewed and are negative Constitutional: Reports as per HPI and Reports no additional constitutional complaints Eyes: Reports as per HPI and Denies no additional eye complaints Denies system reviewed and no additional complaints, except as documented and Reports as per HPI Cardiovascular: Reports as per HPI, Reports no additional cardiovascular complaints, Denies acrocyanosis, Denies cool extremities, Denies chest pain, Denies leg edema, Denies lightheadedness, Denies palpitations and Denies dyspnea Respiratory: Reports as per HPI, Denies no additional respiratory complaints and Denies dyspnea Gastrointestinal: Reports as per HPI and Denies no additional gastrointestinal complaints Genitourinary: Reports as per HPI Musculoskeletal: Reports no additional musculoskeletal complaints and Reports as per HPI Skin/Breast: Reports system reviewed and no additional complaints, except as docu Reports system reviewed and no additional complaints, except as documented and Reports as per HPI Psychiatric: Reports no additional psychiatric complaints and Reports as per HPI Endocrine: Reports no additional endocrine complaints, Reports as per HPI and Denies palpitations Hematologic/Lymphatic: Reports no additional hematologic/lymphatic complaints and Reports as per HPI Allergic/Immunologic: Reports no additional allergic/immunologic complaints and Reports as per HPI Physical Exam Vital Signs: Last Vital Signs Temp 97.0 F 10/13/23 12:00 Pulse 63 10/13/23 12:00 Resp 20 10/13/23 12:00 BP 183/79 H 10/13/23 12:00 Pulse Ox 96 10/13/23 12:00 O2 Del Method Nasal Cannula 10/13/23 12:00 O2 Flow Rate 2 10/13/23 12:00 BMI result Body Mass Index 32.8 Const General: comfortable and no acute distress Orientation/consciousness: patient oriented x3 HEENT Other: Unremarkable Head: Yes normal to inspection Neck Neck: Yes normal visual inspection Chest Chest palpation & inspection: normal inspection of the chest Resp Auscultation: crackles Cardio Palpation: normal PMI Heart sounds: S1 normal heart sound present, S2 normal heart sound present, no gallops, no murmurs and no rubs GI Palpation (GI): Soft to palpation Back/Spine/Pelvis Other: unremarkable Skin General skin exam: no rashes or lesions noted Neuro General: patient oriented x3 Extrem General: Yes normal to inspection Psych Mental Status: mental status grossly normal Objective Labs and Meds 10/13/23 05:41 10/13/23 05:41 Lab results: Laboratory Results - last 24 hr 10/12/23 10/12/23 10/13/23 12:03 14:03 05:41 WBC 10.7 RBC 3.42 L Hgb 10.0 L Hct 31.2 L MCV 91.2 MCH 29.2 MCHC 32.1 RDW 14.1 Plt Count 420 H MPV 9.7 Absolute Nucleated RBC 0.000 Nucleated RBC % (auto) 0.0 Sodium 141 Potassium 3.6 Chloride 102 Carbon Dioxide 28 Anion Gap 15 BUN 24 H Creatinine 1.41 H Estim Creat Clear Calc 35.1 Estimated GFR 36 Fasting Glucose 96 Calcium 9.2 Troponin I High Sens 249.5 H* COVID-19 ([facility]) Negative COVID-19 Clin Com See Note Imaging Radiologist's impression: Impressions Chest X-Ray 10/12/23 12:19 IMPRESSION: No active cardiopulmonary disease and no interval change Progress Note: A&P Assessment and plan (1) Atrial flutter with rapid ventricular response: Status: Acute Assessment and Plan: Status post MILA/cardioversion. No evidence of any left atrial appendage thrombus. Continue with anticoagulation. Start amiodarone. Decrease beta-bernadette dosing. Follow heart rates on telemetry. If necessary, can decrease the beta-bernadette dosing further. Likely needs long-term antiarrhythmic therapy. (2) Acute systolic (congestive) heart failure: Status: Acute Assessment and Plan: Severe LV dysfunction could be related to atrial flutter with rapid rate and tachycardia induced cardiomyopathy. Empiric diuretics. Guideline based medical therapy for congestive heart failure. May convert beta-blockers to sustained release Toprol on discharge. She has some renal insufficiency and need to decide if he can start Entresto or not. Other meds in due course. Troponin elevation could also be from atrial flutter with rapid rate as well as CHF. If willing, eventually diagnostic catheterization. Plan Discussed with Dr. Lu. Time Spent With Patient Time: Total time managing care of this patient today ____ minutes. Progress Note: Quality Stroke Does the patient have a stroke diagnosis?: No Procedures Date of Service Date of Service: 10/13/23
--- NOTE | 2023-10-13 16:43 | MHC.CM.PN ---
Addendum entered by Gill Brunson 10/14/23 09:37: PT COMPLETED A NEW HCP, NOW ON FILE Original Note: CM MET WITH PT AND HER DAUGHTER, CLAUS, AT BEDSIDE PT LIVES WITH HER GRANDSON AND PTS SON LIVES UPSTAIRS FROM THEM IN A TWO FAMILY HOME PT HAS HAD SOME [employer] SERVICES IN THE PAST VIA [place], HOWEVER IT HAS NOT WORKED OUT THEY WOULD BE INTERESTED IN [employer] AGAIN THEY ARE ALSO ASKING FOR A REFERRAL TO [facility] FOR MOW AND MED ALERT REFERRAL MADE PT WOULD LIKE TO ATTEND OUTPATIENT CARDIAC/PULMONARY REHAB HERE AT [facility] [place] AFTER DC SHE DOES NOT WANT TO GO TO A STR OR HAVE THE VNA PT WILL COMPLETE A HCP NAMING HER DAUGHTER, CLAUS STYLES [phone] PCP: ELIAZAR FORRESTER IMM DELIVERED DCP: HOME WITH REFERRALS TO [facility] [employer] RE[facility] PTS HOSPITALIST INFORMED SHE WOULD LIKE TO ATTEND OUTPATIENT REHAB FAMILY WILL TRANSPORT
[2023-10-13] MEDS: Acetaminophen 325 MG TABLET 650 MG PO (20:37)
[2023-10-13] MEDS: Sacubitril/Valsartan 24/26 1 TAB TABLET PO (20:37)
[2023-10-13] MEDS: Nystatin Powder 15 GM BOTTLE 1 APPL TOPICAL (20:46)
[2023-10-13 21:05] LABS: Troponin-I High Sensitivity 312.3 ng/L (<3.5-17.0)
[2023-10-14] VITALS (7 sets, daily range): BP systolic 133–182; BP diastolic 60–70; PULSE 51–67; RESP 16–20; TEMP 36.1–37; O2SAT 91–95
[2023-10-14] MEDS: hydrALAZINE HCl 20 MG/ML VIAL 10 MG IVPUSH (01:24)
[2023-10-14 06:00] LABS: Hematocrit 33.4 % (37.0-47.0); Hemoglobin 10.8 g/dl (12.0-16.0); Mean Corpuscular HGB Conc 32.3 g/dl (31.0-35.0); Mean Corpuscular Hemoglobin 28.9 pg (27.0-33.0); Mean Corpuscular Volume 89.3 fL (80.0-98.0); Mean Platelet Volume 9.5 fL (9.4-12.3); Platelet Count 442 X10*3/uL (160-400); Red Blood Count 3.74 X10*6/uL (4.20-5.50); Red Cell Distribution Width 13.9 % (11.0-16.0)
[2023-10-14 06:16] LABS: Anion Gap 16 (12-20); Blood Urea Nitrogen 30 mg/dL (9-16); Calcium 9.1 mg/dL (8.4-10.2); Carbon Dioxide 29 mmol/L (22-29); Chloride 99 mmol/L (96-108); Creatinine Clr Calc Pharmacy 19.9; Estimated Glomerular Filt Rate 19; Glucose Fasting 109 mg/dL (60-99); Potassium 3.8 mmol/L (3.3-5.1); Sodium 140 mmol/L (135-145)
[2023-10-14] MEDS: Fluticasone/Vilanterol 200/25 BLST.W.DEV 1 PUFF INHALE (07:45)
--- NOTE | 2023-10-14 09:16 | P.PNIM_ITS ---
Subjective Subjective Date of Service: 10/14/23 Interval History: breathing better Physical Exam 2 Vital Signs: Vital Signs: Last Vital Signs Temp 97.1 F 10/14/23 07:08 Pulse 62 10/14/23 07:47 Resp 16 10/14/23 07:47 BP 161/70 H 10/14/23 07:08 Pulse Ox 94 10/14/23 07:08 O2 Del Method Nasal Cannula 10/14/23 07:08 O2 Flow Rate 2 10/14/23 04:00 BMI result Body Mass Index 32.8 Const: General: comfortable and no acute distress O rientation/consciousness: patient oriented x3 HEENT: Other: Unremarkable Head: Yes normal to inspection Neck: Neck: Yes normal visual inspection Chest: Chest palpation & inspection: normal inspection of the chest Resp: Auscultation: crackles Cardio: Palpation: normal PMI Heart sounds: S1 normal heart sound present, S2 normal heart sound present, no gallops, no murmurs and no rubs GI: Palpation (GI): Soft to palpation Back/Spine/Pelvis: Other: unremarkable Skin: General skin exam: no rashes or lesions noted Neuro: General: patient oriented x3 Extrem: General: Yes normal to inspection Psych: Mental Status: mental status grossly normal Objective Data Active Medications Acetaminophen (Acetaminophen 325 Mg Tablet) 650 mg PO Q4H PRN PRN Reason: Pain, Mild (Pain Scale 1-3) Last Admin: 10/13/23 20:37 Dose: 650 mg Documented By: ANIBAL Albuterol Sulfate (Albuterol Sulfate 90 Mcg 8 Gm Inhaler) 2 puff INHALE Q4H PRN PRN Reason: for wheezing Amiodarone HCl (Amiodarone Hcl 200 Mg Tablet) 400 mg PO BID [facility] Last Admin: 10/13/23 20:46 Dose: 400 mg Documented By: ANIBAL Apixaban (Apixaban 2.5 Mg Tablet) 2.5 mg PO BID [facility] Fluoxetine HCl (Fluoxetine Hcl 20 Mg Capsule) 20 mg PO DAILY [facility] Last Admin: 10/13/23 09:53 Dose: Not Given Documented By: EVERTON Non-Admin Reason: Patient Refused Fluticasone/Vilanterol (Fluticasone/Vilanterol 200/25 Blst.W.Dev) 1 puff INHALE RDAILY [facility] Last Admin: 10/14/23 07:45 Dose: 1 puff Documented By: KRIS Loratadine (Loratadine 10 Mg Tablet) 10 mg PO DAILY [facility] Last Admin: 10/13/23 08:48 Dose: 10 mg Documented By: LIANNE Memantine (Memantine Hcl 10 Mg Tablet) 10 mg PO BID [facility] Last Admin: 10/13/23 20:37 Dose: 10 mg Documented By: ANIBAL Metoprolol Tartrate (Metoprolol Tartrate 25 Mg Tablet) 25 mg PO BID [facility]; Protocol Last Admin: 10/13/23 20:37 Dose: 25 mg Documented By: ANIBAL Nystatin (Nystatin Powder 15 Gm Bottle) 1 appl TOPICAL BID [facility]; Protocol Last Admin: 10/13/23 20:46 Dose: 1 appl Documented By: ANIBAL Pravastatin Sodium (Pravastatin Sodium 40 Mg Tablet) 40 mg PO DAILY [facility] Last Admin: 10/13/23 08:47 Dose: 40 mg Documented By: LIANNE Sodium Chloride (0.9 % Sodium Chloride Flush 3 Ml Syringe) 3 ml IVFLUSH QSHIFT [facility] Last Admin: 10/13/23 20:37 Dose: 3 ml Documented By: ANIBAL Labs 10/14/23 05:34 10/14/23 05:34 Labs: Laboratory Results - last 24 hr 10/14/23 05:34 MCV 89.3 MCH 28.9 MCHC 32.3 RDW 13.9 Plt Count 442 H MPV 9.5 Absolute Nucleated RBC 0.000 Nucleated RBC % (auto) 0.0 Anion Gap 16 Estim Creat Clear Calc 19.9 Estimated GFR 19 Fasting Glucose 109 H Calcium 9.1 Assessment and Plan (1) Elevated troponin: Status: Acute Plan 78F PMH presumed CAD (has not had cath), copd, restrictive sumi disease (likely due to obesity), osteoporosis, htn Acute hypoxic respiratory failure secondary to acute systolic CHF 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 RADHA ?overdiuresis will give 250cc ns monitor Presumed CAD Will need ischemic workup COPD and restrictive lung disease due to obesity Weight loss recommended Continue inhalers Hypertension Metoprolol DVT prophylaxis-on Eliquis Full code reason for continued hospitalization:radha Quality Stroke Does the patient have a stroke diagnosis?: No VTE Prior VTE?: No VTE Risk Level:: Medical - moderate - high VTE Device Contraindication: Treatment Not Indicated VTE Drug Contraindication: N/A - Med Ordered
[2023-10-14] MEDS: Loratadine 10 MG TABLET PO (09:19)
[2023-10-14] MEDS: Amiodarone HCL 200 MG TABLET 400 MG PO ×2 (09:19→21:33)
[2023-10-14] MEDS: Memantine HCl 10 MG TABLET PO ×2 (09:19→21:33)
[2023-10-14] MEDS: Apixaban 2.5 MG TABLET PO (09:19)
[2023-10-14] MEDS: Pravastatin Sodium 40 MG TABLET PO (09:19)
[2023-10-14] MEDS: FLUoxetine HCl 20 MG CAPSULE PO (09:19)
[2023-10-14] MEDS: 0.9 % Sodium Chloride Flush 3 ML SYRINGE IVFLUSH ×2 (09:21→17:04)
[2023-10-14] MEDS: Nystatin Powder 15 GM BOTTLE 1 APPL TOPICAL (10:05)
--- NOTE | 2023-10-14 10:27 | HO.POSTANES ---
Post Anesthesia Evaluation Post Anesthesia Evaluation Date of Service: 10/14/23 Vital Signs: Vital Signs Temp Pulse Resp BP Pulse Ox O2 Del Method O2 Flow Rate 10/14/23 07:47 62 16 10/14/23 07:08 97.1 F 51 17 161/70 H 94 Nasal Cannula 10/14/23 04:00 96.9 F 53 18 155/70 H 93 Nasal Cannula 2 10/14/23 00:00 97 F 60 18 182/60 H 94 Anesthesia: Monitored Mental Status: Awake Pain Control: Satisfactory Nausea/Vomiting: None Anesthesia-Related Issues: No Anes. Related Issues
[2023-10-14] MEDS: Metoprolol Succinate ER 25 MG TAB.ER.24H PO (10:53)
--- NOTE | 2023-10-14 10:53 | P.PNCA_ITS ---
Subjective Subjective Date of Service: 10/14/23 Interval history: She states she is feeling okay. Underwent MILA/cardioversion as today. Review of Systems Review of Systems Yes all other systems are reviewed and are negative Constitutional: Reports as per HPI and Reports no additional constitutional complaints Eyes: Reports as per HPI and Denies no additional eye complaints Denies system reviewed and no additional complaints, except as documented and Reports as per HPI Cardiovascular: Reports as per HPI, Reports no additional cardiovascular complaints, Denies acrocyanosis, Denies cool extremities, Denies chest pain, Denies leg edema, Denies lightheadedness, Denies palpitations and Denies dyspnea Respiratory: Reports as per HPI, Denies no additional respiratory complaints and Denies dyspnea Gastrointestinal: Reports as per HPI and Denies no additional gastrointestinal complaints Genitourinary: Reports as per HPI Musculoskeletal: Reports no additional musculoskeletal complaints and Reports as per HPI Skin/Breast: Reports system reviewed and no additional complaints, except as docu Reports system reviewed and no additional complaints, except as documented and Reports as per HPI Psychiatric: Reports no additional psychiatric complaints and Reports as per HPI Endocrine: Reports no additional endocrine complaints, Reports as per HPI and Denies palpitations Hematologic/Lymphatic: Reports no additional hematologic/lymphatic complaints and Reports as per HPI Allergic/Immunologic: Reports no additional allergic/immunologic complaints and Reports as per HPI Physical Exam Vital Signs: Last Vital Signs Temp 97.1 F 10/14/23 07:08 Pulse 62 10/14/23 07:47 Resp 16 10/14/23 07:47 BP 161/70 H 10/14/23 07:08 Pulse Ox 94 10/14/23 07:08 O2 Del Method Nasal Cannula 10/14/23 07:08 O2 Flow Rate 2 10/14/23 04:00 BMI result Body Mass Index 32.8 Const General: comfortable and no acute distress Orientation/consciousness: patient oriented x3 HEENT Other: Unremarkable Head: Yes normal to inspection Neck Neck: Yes normal visual inspection Chest Chest palpation & inspection: normal inspection of the chest Resp Auscultation: clear to auscultation bilaterally Cardio Palpation: normal PMI Heart sounds: S1 normal heart sound present, S2 normal heart sound present, no gallops, no murmurs and no rubs GI Palpation (GI): Soft to palpation Back/Spine/Pelvis Other: unremarkable Skin General skin exam: no rashes or lesions noted Neuro General: patient oriented x3 Extrem General: Yes normal to inspection Psych Mental Status: mental status grossly normal Objective Labs and Meds 10/14/23 05:34 10/14/23 05:34 Lab results: Laboratory Results - last 24 hr 10/13/23 10/14/23 20:32 05:34 WBC 11.0 H RBC 3.74 L Hgb 10.8 L Hct 33.4 L MCV 89.3 MCH 28.9 MCHC 32.3 RDW 13.9 Plt Count 442 H MPV 9.5 Absolute Nucleated RBC 0.000 Nucleated RBC % (auto) 0.0 Sodium 140 Potassium 3.8 Chloride 99 Carbon Dioxide 29 Anion Gap 16 BUN 30 H Creatinine 2.49 H Estim Creat Clear Calc 19.9 Estimated GFR 19 Fasting Glucose 109 H Calcium 9.1 Troponin I High Sens 312.3 H* Progress Note: A&P Assessment and plan (1) Atrial flutter with rapid ventricular response: Status: Acute Assessment and Plan: Status post MILA/cardioversion. No evidence of any left atrial appendage thrombus. Continue with anticoagulation. Continue with amiodarone loading-400 mg b.i.d. for 2 weeks followed by 200 mg daily. Decrease beta-blockers further. Continue anticoagulation. (2) Acute systolic (congestive) heart failure: Status: Acute Assessment and Plan: Severe LV dysfunction could be related to atrial flutter with rapid rate and tachycardia induced cardiomyopathy. Empiric diuretics. She received 1 dose of Entresto and empiric diuretics. However, renal function is going to. 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 We can give her some fluids. Hold further Entresto. Eventually, guideline based medical therapy as much able. Troponin elevation could indicate underlying CAD but do not believe she had acute coronary syndrome. Rather likely from atrial flutter with rapid rates as well as CHF. In the past, she had refused cardiac catheterization. Can readdress in the future if willing. Plan Discussed with Dr. Lu. Time Spent With Patient Time: Total time managing care of this patient today ____ minutes. Progress Note: Quality Stroke Does the patient have a stroke diagnosis?: No Procedures Date of Service Date of Service: 10/14/23
[2023-10-14] MEDS: 0.9 % Sodium Chloride 1,000 ML 50 ML IVCONT (10:54)
[2023-10-14] MEDS: Apixaban 5 MG TABLET PO (21:33)
[2023-10-15] VITALS (8 sets, daily range): BP systolic 131–178; BP diastolic 61–76; PULSE 54–69; RESP 18–20; TEMP 36.1–37; O2SAT 90–96
[2023-10-15 07:25] LABS: Anion Gap 13 (12-20); Blood Urea Nitrogen 38 mg/dL (9-16); Calcium 8.6 mg/dL (8.4-10.2); Carbon Dioxide 27 mmol/L (22-29); Chloride 104 mmol/L (96-108); Creatinine Clr Calc Pharmacy 18.2; Estimated Glomerular Filt Rate 17; Glucose Fasting 117 mg/dL (60-99); Potassium 3.2 mmol/L (3.3-5.1); Sodium 141 mmol/L (135-145)
[2023-10-15] MEDS: Fluticasone/Vilanterol 200/25 BLST.W.DEV 1 PUFF INHALE (07:33)
--- NOTE | 2023-10-15 09:03 | HO.PM.IMPN ---
Subjective Subjective Date of Service: 10/15/23 Interval History: overall improved Physical Exam Vital Signs: Vital Signs: Last Vital Signs Temp 98.6 F 10/15/23 07:05 Pulse 63 10/15/23 07:35 Resp 18 10/15/23 07:35 BP 155/68 H 10/15/23 07:05 Pulse Ox 91 L 10/15/23 07:05 O2 Del Method Nasal Cannula 10/15/23 07:05 O2 Flow Rate 2 10/15/23 07:05 BMI result Body Mass Index 32.8 Const: General: comfortable and no acute distress Orientation/consciousness: patient oriented x3 HEENT: Other: Unremarkable Head: Yes normal to inspection Neck: Neck: Yes normal visual inspection Chest: Chest palpation & inspection: normal inspection of the chest Resp: Auscultation: clear to auscultation bilaterally Cardio: Palpation: normal PMI Heart sounds: S1 normal heart sound present, S2 normal heart sound present, no gallops, no murmurs and no rubs GI: Palpation (GI): Soft to palpation Back/Spine/Pelvis: Other: unremarkable Skin: General skin exam: no rashes or lesions noted Neuro: General: patient oriented x3 Extrem: General: Yes normal to inspection Psych: Mental Status: mental status grossly normal Objective Data Active Medications Acetaminophen (Acetaminophen 325 Mg Tablet) 650 mg PO Q4H PRN PRN Reason: Pain, Mild (Pain Scale 1-3) Last Admin: 10/13/23 20:37 Dose: 650 mg Documented By: ANIBAL Albuterol Sulfate (Albuterol Sulfate 90 Mcg 8 Gm Inhaler) 2 puff INHALE Q4H PRN PRN Reason: for wheezing Amiodarone HCl (Amiodarone Hcl 200 Mg Tablet) 400 mg PO BID [facility] Last Admin: 10/14/23 21:33 Dose: 400 mg Documented By: DAGOBERTO Apixaban (Apixaban 5 Mg Tablet) 5 mg PO BID [facility] Last Admin: 10/14/23 21:33 Dose: 5 mg Documented By: DAGOBERTO Fluoxetine HCl (Fluoxetine Hcl 20 Mg Capsule) 20 mg PO DAILY [facility] Last Admin: 10/14/23 09:19 Dose: 20 mg Documented By: LIANNE Fluticasone/Vilanterol (Fluticasone/Vilanterol 200/25 Blst.W.Dev) 1 puff INHALE RDAILY [facility] Last Admin: 10/15/23 07:33 Dose: 1 puff Documented By: EUGENIE Loratadine (Loratadine 10 Mg Tablet) 10 mg PO DAILY [facility] Last Admin: 10/14/23 09:19 Dose: 10 mg Documented By: LIANNE Memantine (Memantine Hcl 10 Mg Tablet) 10 mg PO BID [facility] Last Admin: 10/14/23 21:33 Dose: 10 mg Documented By: DAGOBERTO Metoprolol Succinate (Metoprolol Succinate Er 25 Mg Tab.Er.24h) 25 mg PO DAILY [facility]; Protocol Last Admin: 10/14/23 10:53 Dose: 25 mg Documented By: LIANNE Nystatin (Nystatin Powder 15 Gm Bottle) 1 appl TOPICAL BID [facility]; Protocol Last Admin: 10/15/23 00:05 Dose: Not Given Documented By: URVASHI Non-Admin Reason: Med Not Available Pravastatin Sodium (Pravastatin Sodium 40 Mg Tablet) 40 mg PO DAILY [facility] Last Admin: 10/14/23 09:19 Dose: 40 mg Documented By: LIANNE Sodium Chloride (0.9 % Sodium Chloride Flush 3 Ml Syringe) 3 ml IVFLUSH QSHIFT [facility] Last Admin: 10/15/23 07:06 Dose: Not Given Documented By: EAMON Non-Admin Reason: See Note Labs 10/14/23 05:34 10/15/23 06:43 Labs: Laboratory Results - last 24 hr 10/15/23 06:43 Hold Purple Top SEE NOTE Anion Gap 13 Estim Creat Clear Calc 18.2 Estimated GFR 17 Fasting Glucose 117 H Calcium 8.6 Assessment and Plan (1) Elevated troponin: Status: Acute Plan 78F PMH presumed CAD (has not had cath), copd, restrictive sumi disease (likely due to obesity), osteoporosis, htn Acute hypoxic respiratory failure secondary to acute systolic CHF 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 Wean O2 as tolerated Will need ischemic workup at some point holding entresto for radha changed metoprolol to toprol 25 New onset atrial fibrillation with rapid ventricular response s/p cardioversion 10/13/23 sinus with pacs eliquis cotninued at 5mg bid due to recent cardioversion RADHA no improvement with gentle hydration nephro eval monitor Presumed CAD Will need ischemic workup COPD and restrictive lung disease due to obesity Weight loss recommended Continue inhalers Hypertension Metoprolol DVT prophylaxis-on Eliquis Full code reason for continued hospitalization:radha Quality Stroke Does the patient have a stroke diagnosis?: No VTE Prior VTE?: No VTE Risk Level:: Medical - moderate - high VTE Device Contraindication: Treatment Not Indicated VTE Drug Contraindication: N/A - Med Ordered
[2023-10-15] MEDS: Amiodarone HCL 200 MG TABLET 400 MG PO ×2 (09:12→22:56)
[2023-10-15] MEDS: Potassium Chloride ER 20 MEQ TAB.ER.PRT 40 MEQ PO (09:12)
[2023-10-15] MEDS: Apixaban 5 MG TABLET PO ×2 (09:12→22:56)
[2023-10-15] MEDS: Loratadine 10 MG TABLET PO (09:12)
[2023-10-15] MEDS: Memantine HCl 10 MG TABLET PO ×2 (09:12→22:56)
[2023-10-15] MEDS: Metoprolol Succinate ER 25 MG TAB.ER.24H PO (09:12)
[2023-10-15] MEDS: FLUoxetine HCl 20 MG CAPSULE PO (09:12)
[2023-10-15] MEDS: Pravastatin Sodium 40 MG TABLET PO (09:12)
--- NOTE | 2023-10-15 10:48 | P.CONNP_ITS ---
History of Present Illness Reason for Consult Consult date: 10/16/23 Chief Complaint Chief complaint: chf, afib History of Present Illness Narrative: 78F with presumed CAD (has not had cath), copd, restrictive sumi disease (likely due to obesity), osteoporosis, htn presented with sob. patient states she has been feeling generally for past 3 weeks. shortness of breath, poor exercise tolerance. denies chest pain, fever, chills. was getting outpatient echo, noted to be very sob, rapid afib, and low EF 15-20%. Initially treated with diuretics Baseline cr is around 1.2 and has bumped up to 2.7 with diuresis and hence this consult Review of Systems Constitutional: Denies anorexia, Denies fever(s) and Denies weakness Eyes: Denies blurry vision Cardiovascular: Denies no additional cardiovascular complaints and Denies dyspnea Respiratory: Reports no additional respiratory complaints, Reports cough and Denies dyspnea Gastrointestinal: Denies melena and Denies diarrhea Genitourinary: Denies hematuria Musculoskeletal: Denies tingling Skin/Breast: Denies rash Denies focal weakness, Denies tingling, Denies tremor(s) and Denies weakness PMFSH Past Medical History Medical History Obesity (BMI 30-39.9) Cataract Wears dentures Use of cane as ambulatory aid Arthritis Low back pain High cholesterol HTN (hypertension) Environmental and seasonal allergies Restrictive lung disease Atherosclerotic cardiovascular disease COPD (chronic obstructive pulmonary disease) Family History Family History Father Family history of cancer Mother Colon cancer Alzheimer disease Surgical History Surgical History Hx of colonoscopy History of tubal ligation History of ankle surgery History of lumpectomy of left breast Social History Social History Household Members: Family Housing: House Are you a 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 director of managed care to a significant other at home: Yes (grandson age 13, son and daughter supportive) Do you presently have visiting nurse or other home services: No Alcohol intake: current Alcohol intake frequency: does not drink Patient Tobacco Use Status: Former Tobacco user Quit Date: 20 years ago Tobacco use type: Cigarette Meds Allergies Allergy/AdvReac Type Severity Reaction Status Date / Time hydrochlorothiazide Allergy Intermediate FELT Verified 10/12/23 11:37 [From ZESTORETIC] FAINT, syncope lisinopril [LISINOPRIL] Allergy Intermediate Cough Verified 10/12/23 11:37 Active Medications: Current Medications Acetaminophen (Acetaminophen 325 Mg Tablet) 650 mg PO Q4H PRN PRN Reason: Pain, Mild (Pain Scale 1-3) Last Admin: 10/13/23 20:37 Dose: 650 mg Albuterol Sulfate (Albuterol Sulfate 90 Mcg 8 Gm Inhaler) 2 puff INHALE Q4H PRN PRN Reason: for wheezing Amiodarone HCl (Amiodarone Hcl 200 Mg Tablet) 400 mg PO BID [facility] Last Admin: 10/15/23 09:12 Dose: 400 mg Apixaban (Apixaban 5 Mg Tablet) 5 mg PO BID [facility] Last Admin: 10/15/23 09:12 Dose: 5 mg Fluoxetine HCl (Fluoxetine Hcl 20 Mg Capsule) 20 mg PO DAILY [facility] Last Admin: 10/15/23 09:12 Dose: 20 mg Fluticasone/Vilanterol (Fluticasone/Vilanterol 200/25 Blst.W.Dev) 1 puff INHALE RDAILY [facility] Last Admin: 10/15/23 07:33 Dose: 1 puff Loratadine (Loratadine 10 Mg Tablet) 10 mg PO DAILY [facility] Last Admin: 10/15/23 09:12 Dose: 10 mg Memantine (Memantine Hcl 10 Mg Tablet) 10 mg PO BID [facility] Last Admin: 10/15/23 09:12 Dose: 10 mg Metoprolol Succinate (Metoprolol Succinate Er 25 Mg Tab.Er.24h) 25 mg PO DAILY [facility]; Protocol Last Admin: 10/15/23 09:12 Dose: 25 mg Nystatin (Nystatin Powder 15 Gm Bottle) 1 appl TOPICAL BID [facility]; Protocol Last Admin: 10/15/23 00:05 Dose: Not Given Pravastatin Sodium (Pravastatin Sodium 40 Mg Tablet) 40 mg PO DAILY [facility] Last Admin: 10/15/23 09:12 Dose: 40 mg Sodium Chloride (0.9 % Sodium Chloride Flush 3 Ml Syringe) 3 ml IVFLUSH QSHIFT [facility] Last Admin: 10/15/23 07:06 Dose: Not Given Home Medications Medication Instructions Recorded Confirmed Last Taken Type budesonide-formoterol HFA 160 2 inh inhalation BID 11/25/20 10/12/23 10/11/23 History mcg-4.5 mcg/actuation aerosol inhaler memantine 10 mg tablet 10 mg PO BID 11/25/20 10/12/23 10/11/23 History loratadine 10 mg tablet (Allergy 10 mg PO DAILY 05/31/21 10/12/23 10/11/23 History Relief (loratadine)) alendronate 70 mg tablet 70 mg PO MO 12/04/22 10/12/23 10/11/23 History calcium carbonate 600 mg-vitamin 1 tab PO BID 10/12/23 10/12/23 10/11/23 History D3 5 mcg (200 unit) tablet fluoxetine 20 mg capsule 20 mg PO DAILY 10/12/23 10/12/23 10/11/23 History Physical Exam Vital Signs: Last Vital Signs Temp 98.6 F 10/15/23 07:05 Pulse 63 10/15/23 07:35 Resp 18 10/15/23 07:35 BP 155/68 H 10/15/23 07:05 Pulse Ox 91 L 10/15/23 07:05 O2 Del Method Nasal Cannula 10/15/23 07:05 O2 Flow Rate 2 10/15/23 07:05 BMI result Body Mass Index 32.8 Const General: comfortable Nutritional Appearance: well nourished Orientation/consciousness: patient oriented x3 HEENT Head: No normal to inspection Mouth: moist mucous membranes Neck Neck: Yes supple and Yes no JVD Resp Auscultation: clear to auscultation bilaterally, no rales and rub present Cardio Jugular venous distension: no JVD Palpation: no palpable S3 and no palpable S4 Heart sounds: no rubs GI Palpation (GI): Soft to palpation and nontender Percussion: No Fluid wave present General: Yes no CVA tenderness Back/Spine/Pelvis Back: no CVA tenderness Skin General skin exam: no rashes or lesions noted Neuro General: patient oriented x3 Extrem General: Yes no pedal edema and No clubbing Results Lab Results 10/16/23 05:50 10/16/23 05:50 Lab results: Chemistry 10/12/23 10/13/23 10/14/23 12:00 05:41 05:34 Sodium 139 141 140 Potassium 3.9 3.6 3.8 Carbon Dioxide 24 28 29 BUN 25 H 24 H 30 H Creatinine 1.66 H 1.41 H 2.49 H Calcium 9.4 9.2 9.1 10/15/23 06:43 Sodium 141 Potassium 3.2 L Carbon Dioxide 27 BUN 38 H Creatinine 2.72 H Calcium 8.6 Hematology 10/12/23 10/13/23 10/14/23 12:00 05:41 05:34 WBC 11.5 H 10.7 11.0 H Hgb 9.8 L 10.0 L 10.8 L Plt Count 422 H 420 H 442 H Assessment and Plan (1) Atrial flutter with rapid ventricular response: Status: Acute (2) RADHA (acute kidney injury): Status: Acute Plan RADHA most likely due to hypoperfusion r/o Obstruction h/o atrophic left kidney - mild AGN/AiN seem unlikely Suggest Hold Lasix today Watch urine output Check Urine studies- ordered Renal sonogram - ordered Continue to avoid nephrotoxins and hypotension NO indication for dialysis Shall follow closely Procedures Date of Service Date of Service: 10/16/23
--- NOTE | 2023-10-15 11:10 | MHC.CM.PN ---
EMR reviewed and per MD rounds, pt is not medically cleared for D/C due to management of RADHA. CM will continue to follow.
[2023-10-15] MEDS: hydrALAZINE HCl 25 MG TABLET PO ×3 (12:14→22:56)
--- NOTE | 2023-10-15 12:54 | PM.PNCARD ---
Subjective Subjective Date of Service: 10/15/23 Interval history: Seen examined at bedside. Denying any symptoms currently. On supplemental oxygen. Kidney function is still abnormal. Physical Exam Vital Signs: Last Vital Signs Temp 97.6 F 10/15/23 11:18 Pulse 68 10/15/23 11:18 Resp 18 10/15/23 11:18 BP 178/76 H 10/15/23 11:18 Pulse Ox 90 L 10/15/23 11:18 O2 Del Method Room Air 10/15/23 11:18 O2 Flow Rate 2 10/15/23 07:05 BMI result Body Mass Index 32.8 GENERAL APPEARANCE: in no acute distress, pleasant. NECK: no carotid bruit, no jugular venous distention. SKIN: no suspicious lesions, warm and dry. HEART: no murmurs, regular rate and rhythm. LUNGS: clear to auscultation bilaterally. ABDOMEN: soft, nontender. EXTREMITIES: no edema. PERIPHERAL PULSES: equal. NEUROLOGIC: No gross deficits, AAO X 3 Objective Labs and Meds 10/14/23 05:34 10/15/23 06:43 Lab results: Laboratory Results - last 24 hr 10/15/23 06:43 Hold Purple Top SEE NOTE Sodium 141 Potassium 3.2 L Chloride 104 Carbon Dioxide 27 Anion Gap 13 BUN 38 H Creatinine 2.72 H Estim Creat Clear Calc 18.2 Estimated GFR 17 Fasting Glucose 117 H Calcium 8.6 Progress Note: A&P Assessment and plan (1) RADHA (acute kidney injury): Status: Acute (2) Acute systolic (congestive) heart failure: Status: Acute (3) Atrial flutter with rapid ventricular response: Status: Acute Plan Very pleasant 78-year-old female with 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 She is status post cardioversion at this stage and is in sinus rhythm. She is on amiodarone. Blood pressure is significantly elevated. Adding hydralazine 25 mg 3 times a day. Currently can not take any ARB or Entresto due to kidney injury. Consider adding Jardiance. On Eliquis for anticoagulation. She has significant acute kidney injury after diuresis. Clinically she is euvolemic currently. She received some IV fluids at this point. Would avoid further IV fluids as can take over toward heart failure easily specially in the setting of elevated blood pressures. Thank you for allowing me to participate in the care of your patient. Please feel free to contact me if you have any questions. Time Spent With Patient Time: Total time managing care of this patient today ____ minutes. Progress Note: Quality Stroke Does the patient have a stroke diagnosis?: No Procedures Date of Service Date of Service: 10/15/23
--- NOTE | 2023-10-15 13:03 | HO.WOUND ---
Wound Consult: Initial 78yr old F admitted to [facility] on 10/12/23 - See progress notes and H&P for detailed history.? Wound consult placed for Bilateral Breast and Buttock .? Patient agreeable to assessment and photo documentation.? Chart review reveals Nystatin powder in place already. Pt denies itching reports pain and tenderness along the breast fold. Denies pain or itching to groin and or buttock. Bilateral breast folds assessed - Linear red maroon blanchable with partial thickness tissue loss noted to the base, consistent with MASD - Intertrigo. No s/s of fungal dermatitis noted. Not pressure related. The groin and buttock were assessed and remains clean and free of injury. S/S of fungal dermatitis and no s/s of MASD (Moisture Associated Skin Damage) noted. Topical treatment does not appear to need topical antifungal at this time - will notify provider and they will determine medication needs. Breast fold cleansed and dried. Interdry education provided and applied. No topical interventions needed at this time for the buttock and groin. Recommendations: 1. Bilateral Breast Skin Folds - Cleanse well with routine cleansing, dry well. Tuck Interdry AG Sheet into skin fold to wick and translocate moisture away from skin fold.? Be sure to leave at least 2 inch of fabric exposed outside of skin fold.? Change when soiled. Re-consult wound care Nurse for wound deterioration or wound changes.
[2023-10-15 20:44] LABS: Appearance Urine Clear; Color Urine Yellow; Glucose Urine UA 100 mg/dL (Negative); Leukocyte Esterase Urine Small (1+) (Negative); Nitrite Urine Negative (Negative); PH 5.5 (5.0-9.0); Specific Gravity - Urine 1.025 (1.005-1.025); UMIC TRIGGER UA YES; Urine Blood Negative (Negative); Urine Ketones Negative (Negative); Urine Protein 100 (2+) mg/dL (Neg-Trace)
[2023-10-15 20:46] LABS: Bacteria Urine None Seen (None Seen); RBC Urine 0-2 /HPF (0-2)
[2023-10-15 20:57] LABS: Creatinine Urine 190.82 mg/dL; Total Protein Urine Random 137 mg/dL (<12)
[2023-10-15] MEDS: 0.9 % Sodium Chloride Flush 3 ML SYRINGE IVFLUSH (22:57)
[2023-10-15] MEDS: Nystatin Powder 15 GM BOTTLE 1 APPL TOPICAL (23:00)
[2023-10-16] MEDS: cefTRIAXone sodium 1 GM in 0.9 % Sodium Chloride 50 ML IV (00:32)
[2023-10-16 03:20] VITALS: BP 157/72; PULSE 58; RESP 16; TEMP 36.1; O2SAT 96
[2023-10-16 06:27] LABS: Anion Gap 14 (12-20); Blood Urea Nitrogen 37 mg/dL (9-16); Calcium 8.7 mg/dL (8.4-10.2); Carbon Dioxide 25 mmol/L (22-29); Chloride 106 mmol/L (96-108); Creatinine Clr Calc Pharmacy 19.1; Estimated Glomerular Filt Rate 18; Glucose Fasting 113 mg/dL (60-99); Potassium 3.8 mmol/L (3.3-5.1); Sodium 141 mmol/L (135-145)
[2023-10-16 06:32] LABS: Hematocrit 32.3 % (37.0-47.0); Hemoglobin 10.4 g/dl (12.0-16.0); Mean Corpuscular HGB Conc 32.2 g/dl (31.0-35.0); Mean Corpuscular Hemoglobin 29.1 pg (27.0-33.0); Mean Corpuscular Volume 90.2 fL (80.0-98.0); Mean Platelet Volume 9.8 fL (9.4-12.3); Platelet Count 435 X10*3/uL (160-400); Red Blood Count 3.58 X10*6/uL (4.20-5.50); Red Cell Distribution Width 14.5 % (11.0-16.0)
[2023-10-16 07:29] VITALS: BP 150/63; PULSE 58; RESP 18; TEMP 36.7; O2SAT 97
[2023-10-16 07:42] VITALS: PULSE 57; RESP 17; O2SAT 97
[2023-10-16] MEDS: Fluticasone/Vilanterol 200/25 BLST.W.DEV 1 PUFF INHALE (07:42)
[2023-10-16] MEDS: Loratadine 10 MG TABLET PO (08:51)
[2023-10-16] MEDS: Amiodarone HCL 200 MG TABLET 400 MG PO (08:51)
[2023-10-16] MEDS: Memantine HCl 10 MG TABLET PO (08:51)
[2023-10-16] MEDS: hydrALAZINE HCl 25 MG TABLET PO (08:51)
[2023-10-16] MEDS: Metoprolol Succinate ER 25 MG TAB.ER.24H PO (08:51)
[2023-10-16] MEDS: Apixaban 5 MG TABLET PO (08:51)
[2023-10-16] MEDS: Pravastatin Sodium 40 MG TABLET PO (08:51)
[2023-10-16] MEDS: Isosorbide Mononitrate 30 MG TAB.ER.24H PO (08:51)
[2023-10-16] MEDS: FLUoxetine HCl 20 MG CAPSULE PO (08:51)
[2023-10-16] MEDS: Nystatin Powder 15 GM BOTTLE 1 APPL TOPICAL (08:53)
--- NOTE | 2023-10-16 09:54 | PM.DS ---
DS: Providers Provider Date of Service: 10/16/23 Date of admission: 10/12/23 13:51 Primary care physician: Brii West NP Consults: 10/12/23 13:48 Consult to Cardiology Routine Consulting Provider: [facility] Reason for consultation: afib, chf Has provider been notified: Yes 10/13/23 15:06 Consult to Wound Care Routine Reason for consultation: fungal rash under breasts 10/15/23 07:55 Consult to Nephrology Routine Consulting Provider: [facility] Reason for consultation: Radha DS: Diagnosis Discharge Diagnosis (1) RADHA (acute kidney injury): Status: Acute (2) Acute systolic (congestive) heart failure: Status: Acute (3) Atrial flutter with rapid ventricular response: Status: Acute DS: Summary Hospital Course Hospital Course: from initial hpi: 78F PMH presumed CAD (has not had cath), copd, restrictive sumi disease (likely due to obesity), osteoporosis, htn presented with sob. patient states she has been feeling generally for past 3 weeks. shortness of breath, poor exercise tolerance. denies chest pain, fever, chills. was getting outpatient echo, noted to be very sob, rapid afib, and low EF 15-20%. hospital course: Patient was admitted for acute hypoxic respiratory failure secondary to acute systolic CHF. She was diuresed with IV Lasix, she was weaned down to 2L oxygen and will continue on 2L home o2 on discharge. For new onset atrial fibrillation with rapid ventricular response she underwent cardioversion on 10/13/2023. She was started on amiodarone 400 mg b.i.d. for 2 weeks and then should decrease to 200 mg daily. She is currently in sinus rhythm. She was started on apixaban. Course was complicated by acute kidney injury, possibly cardiorenal versus over-diuresis. Diuretics held on discharge. Creatinine stabilized and should be followed up as outpatient with Nephrology. For COPD with restrictive lung disease due to obesity weight loss recommended. She was continued on inhalers. For hypertension was continued on metoprolol, Imdur and hydralazine have been added. Patient is feeling better will be discharged home. Time Attestation Discharge coordination time: Greater than 30 minutes Quality: Safe Use of Opioids Does Pt have an Active Cancer Diagnosis on the Problem List?: No Quality: Stroke Does the patient have a stroke diagnosis?: No Physical Exam Vital Signs: Vital Signs: Last Vital Signs Temp 98.0 F 10/16/23 07:29 Pulse 57 10/16/23 07:42 Resp 17 10/16/23 07:42 BP 150/63 H 10/16/23 07:29 Pulse Ox 97 10/16/23 07:29 O2 Del Method Nasal Cannula 10/16/23 07:29 O2 Flow Rate 2 10/16/23 07:29 BMI result Body Mass Index 32.8 GENERAL APPEARANCE: in no acute distress, pleasant. NECK: no carotid bruit, no jugular venous distention. SKIN: no suspicious lesions, warm and dry. HEART: no murmurs, regular rate and rhythm. LUNGS: clear to auscultation bilaterally. ABDOMEN: soft, nontender. EXTREMITIES: no edema. PERIPHERAL PULSES: equal. NEUROLOGIC: No gross deficits, AAO X 3 DS: Data Data Completed and Pending Labs on day of discharge: Laboratory Results - last 24 hr 10/15/23 10/16/23 20:30 05:50 WBC 10.0 RBC 3.58 L Hgb 10.4 L Hct 32.3 L MCV 90.2 MCH 29.1 MCHC 32.2 RDW 14.5 Plt Count 435 H MPV 9.8 Absolute Nucleated RBC 0.000 Nucleated RBC % (auto) 0.0 Sodium 141 Potassium 3.8 Chloride 106 Carbon Dioxide 25 Anion Gap 14 BUN 37 H Creatinine 2.58 H Estim Creat Clear Calc 19.1 Estimated GFR 18 Fasting Glucose 113 H Calcium 8.7 Urine Color Yellow Urine Appearance Clear Urine pH 5.5 Ur Specific [place] 1.025 Urine Protein 100 (2+) H Urine Glucose (UA) 100 H Urine Ketones Negative Urine Blood Negative Urine Nitrite Negative Ur Leukocyte Esterase Small (1+) H Urine RBC 0-2 Urine WBC 11-20 H Ur Squamous Epith Cells 6-10 Urine Bacteria None Seen Hyaline Casts 3-5 U Random Total Protein 137 H Ur Random Sodium 54.0 Urine Creatinine 190.82 Discharge Plan Discharge Anticipated Discharge Date/Time: 10/16/23 09:50 Patient Disposition: Home, Self-Care Discharge Diagnosis: chf, afib, radha Referrals: Benson Li MD [Physician] - 1 Week Brii West NP [Primary Care Provider] - 1 Week Discharge Medications: New Eliquis 5 mg Tablet 5 mg PO BID Qty: 60 0RF amiodarone 200 mg Tablet 400 mg PO BID Qty: 60 0RF Rx Instructions: 400mg bid for 10 more days, then decrease to 200mg daily isosorbide mononitrate 30 mg Tablet Extended Release 24 Hr 30 mg PO DAILY Qty: 30 0RF Protocol: Hold for SBP< HOLD for SBP < : 90 hydralazine 25 mg Tablet 25 mg PO TID Qty: 90 0RF Protocol: Hold for SBP< HOLD for SBP < : 90 Continued albuterol sulfate 90 mcg/actuation HFA aerosol inhaler 2 puff inhalation Q4-6H PRN (Reason: for wheezing) Qty: 8.5 3RF pravastatin 40 mg tablet 40 mg PO DAILY Qty: 90 3RF nitroglycerin 0.4 mg tablet, sublingual 0.4 mg sublingual Q5M PRN (Reason: chest pain) Qty: 14 2RF Rx Instructions: do not exceed 3 doses per episode calcium carbonate-vitamin D3 600 mg-5 mcg (200 unit) tablet 1 tab PO BID fluoxetine 20 mg capsule 20 mg PO DAILY memantine 10 mg tablet 10 mg PO BID budesonide-formoterol 160-4.5 mcg/actuation HFA aerosol inhaler 2 inh inhalation BID loratadine [Allergy Relief (loratadine)] 10 mg tablet 10 mg PO DAILY alendronate 70 mg tablet 70 mg PO MO metoprolol succinate [Toprol XL] 25 mg tablet extended release 24 hr 25 mg PO DAILY Qty: 90 3RF Discontinued amlodipine [Norvasc] 5 mg tablet 5 mg PO DAILY Qty: 90 3RF aspirin [Adult Low Dose Aspirin] 81 mg tablet,delayed release (DR/EC) 81 mg PO DAILY Qty: 90 3RF Discharge Orders: Discharge Order (Routine); Ordered 10/16/23 Ordered By: Lino Lu Diet: Advance to usual diet Activity on Discharge: As tolerated Stand Alone Forms: Patient Portal Discharge page Care Plan Goals: manage afib, chf, radha Health Concerns: afib, chf, radha Plan of Treatment: med changes as prescribed, follow up with cardiology and nephrology Assessment: see above Discharge Date/Time: 10/16/23 12:33
--- NOTE | 2023-10-16 09:56 | P.PNNP_ITS ---
Subjective Subjective Date of Service: 10/16/23 Interval history: overall improved Physical Exam 2 Vital Signs: Vital Signs: Last Vital Signs Temp 98.0 F 10/16/23 07:29 Pulse 57 10/16/23 07:42 Resp 17 10/16/23 07:42 BP 150/63 H 10/16/23 07:29 Pulse Ox 97 10/16/23 07:29 O2 Del Method Nasal Cannula 10/16/23 07:29 O2 Flow Rate 2 10/16/23 07:29 BMI result Body Mass Index 32.8 Const: General: comfortable Nutritional Appearance: well nourished O rientation/consciousness: patient oriented x3 HEENT: Head: No normal to inspection Mouth: moist mucous membranes Neck: Neck: Yes supple and Yes no JVD Resp: Auscultation: clear to auscultation bilaterally, no rales and rub present Cardio: Jugular venous distension: no JVD Palpation: no palpable S3 and no palpable S4 Heart sounds: no rubs GI: Palpation (GI): Soft to palpation and nontender Percussion: No Fluid wave present : General: Yes no CVA tenderness Back/Spine/Pelvis: Back: no CVA tenderness Skin: General skin exam: no rashes or lesions noted Neuro: General: patient oriented x3 Extrem: General: Yes no pedal edema and No clubbing Objective Data Labs 10/16/23 05:50 10/16/23 05:50 Labs: Laboratory Results - last 24 hr 10/15/23 10/16/23 20:30 05:50 WBC 10.0 RBC 3.58 L Hgb 10.4 L Hct 32.3 L MCV 90.2 MCH 29.1 MCHC 32.2 RDW 14.5 Plt Count 435 H MPV 9.8 Absolute Nucleated RBC 0.000 Nucleated RBC % (auto) 0.0 Sodium 141 Potassium 3.8 Chloride 106 Carbon Dioxide 25 Anion Gap 14 BUN 37 H Creatinine 2.58 H Estim Creat Clear Calc 19.1 Estimated GFR 18 Fasting Glucose 113 H Calcium 8.7 Urine Color Yellow Urine Appearance Clear Urine pH 5.5 Ur Specific [place] 1.025 Urine Protein 100 (2+) H Urine Glucose (UA) 100 H Urine Ketones Negative Urine Blood Negative Urine Nitrite Negative Ur Leukocyte Esterase Small (1+) H Urine RBC 0-2 Urine WBC 11-20 H Ur Squamous Epith Cells 6-10 Urine Bacteria None Seen Hyaline Casts 3-5 U Random Total Protein 137 H Ur Random Sodium 54.0 Urine Creatinine 190.82 Renal Ultrasound RIGHT KIDNEY: 9.6 x 4.3 x 5.0 cm (SAG x AP x TRV). The kidney is normal in size, contour, and echogenicity. Renal cortical thickness is normal. No calculi or focal parenchymal lesions. No hydronephrosis. LEFT KIDNEY: 8.3 x 5.0 x 4.3 cm (SAG x AP x TRV). Small kidney with relative atrophy of the upper pole the kidney which may be sequela of prior infection. This is unchanged from prior CT scan There is a new 1.4 cm calculus in the lower pole of the kidney without evidence of obstruction. There is a new 4 mm calculus in the upper pole without evidence of obstruction. No hydronephrosis. US/US renal BI IMPRESSION: Chronic left upper pole atrophy which may be sequela of remote infection or other insult. Nonobstructing left renal calculi. No hydronephrosis. Procedures Date of Service Date of Service: 10/16/23 Assessment & Plan Assessment and plan (1) Atrial flutter with rapid ventricular response: Status: Acute (2) RADHA (acute kidney injury): Status: Acute Plan RADHA most likely due to hypoperfusion h/o atrophic left kidney - mild AGN/AiN seem unlikely based on urine studies Cr is marginally better Suggest Hold Lasix today No need for IVF Watch urine output Continue to avoid nephrotoxins and hypotension Shall follow closely Time Spent With Patient Time: Total time managing care of this patient today ____ minutes. Progress Note: Quality Stroke Does the patient have a stroke diagnosis?: No
--- NOTE | 2023-10-16 10:28 | MHC.CM.PN ---
Second IMM 10/16/23, Pt has been medically cleared for DC. Her son will provide transport home, referral was made to [facility] for M[facility], [facility] and med alert system.
[2023-10-16 11:23] VITALS: BP 152/77; PULSE 72; RESP 18; TEMP 36.7; O2SAT 94
--- NOTE | 2023-10-16 11:45 | PM.PNCARD ---
Subjective Subjective Date of Service: 10/16/23 Interval history: Seen and examined at bedside. Kidney function improving. Blood pressure is still elevated. Physical Exam Vital Signs: Last Vital Signs Temp 98.0 F 10/16/23 11:23 Pulse 72 10/16/23 11:23 Resp 18 10/16/23 11:23 BP 152/77 H 10/16/23 11:23 Pulse Ox 94 10/16/23 11:23 O2 Del Method Room Air 10/16/23 11:23 O2 Flow Rate 2 10/16/23 07:29 BMI result Body Mass Index 32.8 GENERAL APPEARANCE: in no acute distress, pleasant. NECK: no carotid bruit, no jugular venous distention. SKIN: no suspicious lesions, warm and dry. HEART: no murmurs, regular rate and rhythm. LUNGS: clear to auscultation bilaterally. ABDOMEN: soft, nontender. EXTREMITIES: no edema. PERIPHERAL PULSES: equal. NEUROLOGIC: No gross deficits, AAO X 3 Objective Labs and Meds 10/16/23 05:50 10/16/23 05:50 Lab results: Laboratory Results - last 24 hr 10/15/23 10/16/23 20:30 05:50 WBC 10.0 RBC 3.58 L Hgb 10.4 L Hct 32.3 L MCV 90.2 MCH 29.1 MCHC 32.2 RDW 14.5 Plt Count 435 H MPV 9.8 Absolute Nucleated RBC 0.000 Nucleated RBC % (auto) 0.0 Sodium 141 Potassium 3.8 Chloride 106 Carbon Dioxide 25 Anion Gap 14 BUN 37 H Creatinine 2.58 H Estim Creat Clear Calc 19.1 Estimated GFR 18 Fasting Glucose 113 H Calcium 8.7 Urine Color Yellow Urine Appearance Clear Urine pH 5.5 Ur Specific [place] 1.025 Urine Protein 100 (2+) H Urine Glucose (UA) 100 H Urine Ketones Negative Urine Blood Negative Urine Nitrite Negative Ur Leukocyte Esterase Small (1+) H Urine RBC 0-2 Urine WBC 11-20 H Ur Squamous Epith Cells 6-10 Urine Bacteria None Seen Hyaline Casts 3-5 U Random Total Protein 137 H Ur Random Sodium 54.0 Urine Creatinine 190.82 Imaging Radiologist's impression: Impressions Renal Ultrasound 10/15/23 12:00 IMPRESSION: Chronic left upper pole atrophy which may be sequela of remote infection or other insult. Nonobstructing left renal calculi. No hydronephrosis. Progress Note: A&P Assessment and plan (1) RADHA (acute kidney injury): Status: Acute (2) Acute systolic (congestive) heart failure: Status: Acute (3) Atrial flutter: Status: Acute Plan 78-year-old female presenting for new diagnosis of systolic heart failure. 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 She has now status post cardioversion and is on beta-bernadette and amiodarone. She continues to be in sinus rhythm. She is on apixaban for anticoagulation. We added hydralazine 25 mg 3 times a day. Adding isosorbide mononitrate 30 mg daily to that. She will need close blood pressure monitoring with our office and we will titrate medications further. Due to kidney injury she has currently not a candidate for ARB/Entresto. Nephrology can weigh in when she can be safe to start those medications. She will follow-up with Dr. Mathew after discharge. Currently not getting any diuretics. Her daughter is a nurse and I have advised her that she should have daily weight check and if she gains 2 or more lb over 24 hours then we should have a discussion about starting diuretics. She will also follow-up with Nephrology closely. Thank you for allowing me to participate in the care of your patient. Please feel free to contact me if you have any questions. Time Spent With Patient Time: Total time managing care of this patient today ____ minutes. Progress Note: Quality Stroke Does the patient have a stroke diagnosis?: No Procedures Date of Service Date of Service: 10/16/23
[2023-10-16 11:56] VITALS: PULSE 67; PULSE 73; PULSE 78; PULSE 87; O2SAT 85; O2SAT 90; O2SAT 91; O2SAT 95
== END 2023-10-16 12:33 | disposition home or self-care (01) | DRG 308 ==
LOC: HO.ED 13:19 → HO.EDOVER 13:53 → HO.IMC 17:05
PROVIDERS: Internal Medicine; Internal Medicine Hypertension Specialist; Student in an Organized Health Care Education/Training Program; Admitting Provider Internal Medicine; Emergency Provider Emergency Medicine; PCP Nurse Practitioner Family; Visit Provider Internal Medicine
PROC: 5A2204Z Restoration of Cardiac Rhythm, Single (ICD-10-PCS; CPT 93312; principal; 2023-10-13 10:00)
PROC: 5A2204Z Restoration of Cardiac Rhythm, Single (ICD-10-PCS; 2023-10-13 10:00)
DX: I48.92 Unspecified atrial flutter (principal); I50.21 Acute systolic (congestive) heart failure; J96.01 Acute respiratory failure with hypoxia; I13.0 Hypertensive heart and chronic kidney disease with heart failure and stage 1 through stage 4 chronic kidney disease, or unspecified chronic kidney disease; N17.9 Acute kidney failure, unspecified; N18.30 Chronic kidney disease, stage 3 unspecified; N26.1 Atrophy of kidney (terminal); I42.9 Cardiomyopathy, unspecified; J44.9 Chronic obstructive pulmonary disease, unspecified; I25.10 Atherosclerotic heart disease of native coronary artery without angina pectoris; E66.9 Obesity, unspecified; Z68.32 Body mass index [BMI] 32.0-32.9, adult; Z20.822 Contact with and (suspected) exposure to COVID-19; Z79.899 Other long term (current) drug therapy
CPT/HCPCS: 36415; 71045; 76775; 80048; 80076; 81001; 82272; 82570; 83735; 83880; 84156; 84300; 84443; 84484; 85014; 85018; 85025; 85027; 85610; 85730; 86850; 86900; 86901; 86920; 86923; 87635; 92960; 93005; 94640; 97162; 99285; C9113; J0360; J0696; J1160; J1940; J2405; J2704; J2920; J2930; J3010; P9016

== ENCOUNTER → 2023-10-12 12:10 | Outpatient (BNV) | payer MEDICARE, SELFPAY | PROVIDERS: Emergency Provider Emergency Medicine; PCP Nurse Practitioner Family; Visit Provider Internal Medicine | DX: I48.92 Unspecified atrial flutter (principal); I50.21 Acute systolic (congestive) heart failure; R94.31 Abnormal electrocardiogram [ECG] [EKG] | CPT/HCPCS: 92960; 93010; 93306; 99223; 99232; 99233 ==

== ENCOUNTER 2023-10-12 13:51 | Outpatient (BNV) | payer MEDICARE, SELFPAY | END 2023-10-13 11:07 | PROVIDERS: Admitting Provider Internal Medicine; Emergency Provider Emergency Medicine; PCP Nurse Practitioner Family; Visit Provider Internal Medicine | DX: I34.0 Nonrheumatic mitral (valve) insufficiency (principal); I48.91 Unspecified atrial fibrillation; I49.3 Ventricular premature depolarization; R94.31 Abnormal electrocardiogram [ECG] [EKG] | CPT/HCPCS: 93010; 93312; 93320; 93325 ==

== ENCOUNTER → 2023-10-12 13:51 | Outpatient (BNV) | payer MEDICARE, SELFPAY | PROVIDERS: Admitting Provider Internal Medicine; Emergency Provider Emergency Medicine; PCP Nurse Practitioner Family; Visit Provider Internal Medicine | DX: N17.9 Acute kidney failure, unspecified (principal); I50.21 Acute systolic (congestive) heart failure; I48.92 Unspecified atrial flutter; J96.01 Acute respiratory failure with hypoxia | CPT/HCPCS: 99223; 99233; 99239 ==

== ENCOUNTER → 2023-10-12 13:51 | Outpatient (BNV) | payer OTHER, SELFPAY | PROVIDERS: Admitting Provider Internal Medicine; Emergency Provider Emergency Medicine; PCP Nurse Practitioner Family; Visit Provider Internal Medicine Hypertension Specialist | DX: I48.92 Unspecified atrial flutter (principal); N17.9 Acute kidney failure, unspecified | CPT/HCPCS: 99223; 99232 ==

== ENCOUNTER 2023-10-25 11:54 | Outpatient (AMB) | payer OTHER, SELFPAY ==
--- NOTE | 2023-10-25 12:00 | MHC.OFFVIS ---
Intake Vital Signs 10/25/23 12:02 Height 5 ft 6 in Weight 193 lb 4 oz BMI 31.2 BP 150/80 H Blood Pressure Location Lt brachial Position Sitting Pulse 68 Pulse Source Pulse Oximeter Oxygen Delivery Method Nasal Cannula Oxygen Flow Rate 2 Intake Visit Reasons: [facility] HFU/ Confirmed Allergies hydrochlorothiazide [From ZESTORETIC] Allergy (Intermediate, Verified 10/25/23 12:06) FELT FAINT, syncope lisinopril [LISINOPRIL] Allergy (Intermediate, Verified 10/25/23 12:06) Cough HPI HPI Comments History of Present Illness Details Elderly woman with mild CKD admitted for dyspnea Initially she was vigourosly diuresed Serum creatinine increased promptly with diuresis without improvement in respiratory status LAsix was hled and with cautious hydration, creatinine improved marginally She has A.Flutter with RVR and underwent cardioversion She has COPD and is being followed by She was started on nasal O2 during this hospitalization [facility] Medical History Obesity (BMI 30-39.9) Cataract Wears dentures Use of cane as ambulatory aid Arthritis Low back pain High cholesterol HTN (hypertension) Environmental and seasonal allergies Restrictive lung disease Atherosclerotic cardiovascular disease COPD (chronic obstructive pulmonary disease) Surgical History Hx of colonoscopy History of tubal ligation History of ankle surgery History of lumpectomy of left breast Family History Father Family history of cancer Mother Colon cancer Alzheimer disease Social History Household Members: Family Housing: House Are you a primary resident care aid to a significant other at home: Yes (grandson age 13, son and daughter supportive) Do you presently have visiting nurse or other home services: No Alcohol intake: current Alcohol intake frequency: does not drink Patient Tobacco Use Status: Former Tobacco user Quit Date: 20 years ago Tobacco use type: Cigarette Review of Systems Const Denies fever(s) and Denies weight loss Card Denies chest pain Resp Denies cough and Denies hemoptysis GI Denies abdominal pain, Denies diarrhea and Denies nausea Musc Denies back pain Neuro Denies focal weakness Physical Exam Vital Signs: Last Vital Signs Pulse 68 02/01/24 12:02 BP 150/80 H 10/25/23 12:02 Oxygen Delivery Method Nasal Cannula 10/25/23 12:02 Oxygen Flow Rate 2 10/25/23 12:02 BMI result Body Mass Index 31.2 Awake. Comfortable. Neck is supple. Mucosa moist. Lungs bilateral scattered rhonchi. Heart S1-S2 heard no gallop. Abdomen soft. Extremities no edema. No involuntary movements. No myoclonus. Results Reviewed Results Reviewed: Sep 2023 US/US renal BI IMPRESSION: Chronic left upper pole atrophy which may be sequela of remote infection or other insult. Nonobstructing left renal calculi. No hydronephrosis. Assessment & Plan Assessment & Plan (1) RADHA (acute kidney injury): Code(s): N17.9 - Acute kidney failure, unspecified Plan Elderly woman with COPD and a.flutter s/p cardioversion sustained Radha due to hypoperfusion from aggressive diuresis Clinically appears euvolemic today She is off diuretics BP is acceptable Goal is to slow the progression or kidney disease Keep on low salt diet Continue to avoid nephrotoxins Will check renal panel today Orders: Orders Electrolytes Today N17.9 - Acute kidney failure, unspecified Blood Urea Nitrogen Today N17.9 - Acute kidney failure, unspecified Creatinine Today N17.9 - Acute kidney failure, unspecified Calcium Today N17.9 - Acute kidney failure, unspecified Coding Level of Care Code Est Pt Level 4 (72688) Diagnoses RADHA (acute kidney injury) N17.9
[2023-10-25 12:02] VITALS: BP 150/80; PULSE 68; BMI 31.2
== END 2023-10-25 12:30 | disposition home or self-care (01) ==
PROVIDERS: PCP Nurse Practitioner Family; Visit Provider Internal Medicine Hypertension Specialist
DX: N17.9 Acute kidney failure, unspecified (principal)
CPT/HCPCS: 99214

== ENCOUNTER 2023-10-25 11:54 | Outpatient (REF) | payer OTHER, SELFPAY ==
[2023-10-25 13:55] LABS: Anion Gap 12 (12-20); Blood Urea Nitrogen 33 mg/dL (9-16); Carbon Dioxide 30 mmol/L (22-29); Chloride 102 mmol/L (96-108); Estimated Glomerular Filt Rate 30; Potassium 4.5 mmol/L (3.3-5.1); Sodium 139 mmol/L (135-145)
[2023-10-25 13:56] LABS: Calcium 9.5 mg/dL (8.4-10.2)
== END 2023-10-25 11:55 | disposition home or self-care (01) ==
LOC: HO.LAB 11:54
PROVIDERS: PCP Nurse Practitioner Family; Visit Provider Internal Medicine Hypertension Specialist
DX: N17.9 Acute kidney failure, unspecified (principal); N18.9 Chronic kidney disease, unspecified; J44.9 Chronic obstructive pulmonary disease, unspecified; R06.00 Dyspnea, unspecified
CPT/HCPCS: 36415; 80051; 82310; 82565; 84520; 99212

== ENCOUNTER 2023-10-30 12:53 | Outpatient (AMB) | payer MEDICARE, SELFPAY ==
--- NOTE | 2023-10-30 13:10 | A.OFFVIS_ITS ---
Intake Vital Signs 10/30/23 13:16 Height 5 ft 6 in Weight 194 lb 0.108 oz BMI 31.3 BP 154/80 H Blood Pressure Location Rt brachial Position Sitting Pulse 66 Intake Visit Reasons: 6 mth s/p echo Intake Note: 6 month follow up [place] Machine Operator Required: No Accompanied by: Daughter Allergies hydrochlorothiazide [From ZESTORETIC] Allergy (Intermediate, Verified 10/30/23 13:16) FELT FAINT, syncope lisinopril [LISINOPRIL] Allergy (Intermediate, Verified 10/30/23 13:16) Cough Medication List - Last Reconciled 10/30/23 by Gary Mathew MD albuterol sulfate 90 mcg/actuation 2 puffs inhalation Q4-6H PRN alendronate 70 mg PO MO amiodarone 200 mg PO DAILY apixaban (Eliquis) 5 mg PO BID budesonide-formoterol 160-4.5 mcg/actuation 2 inhalations inhalation BID calcium carbonate-vitamin D3 600 mg-5 mcg (200 unit) 1 tab PO BID fluoxetine 20 mg PO DAILY hydralazine 25 mg See Protocol PO TID isosorbide mononitrate ER 30 mg See Protocol PO DAILY loratadine (Allergy Relief (loratadine)) 10 mg PO DAILY memantine 10 mg PO BID metoprolol succinate ER (Toprol XL) 25 mg PO DAILY nitroglycerin 0.4 mg sublingual Q5M PRN pravastatin 40 mg PO DAILY HPI HPI Comments History of Present Illness Details Marge returns for follow-up regarding coronary disease. In the past, she was admitted for chest discomfort. 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 She is being treated for stable coronary disease. She is a former smoker and has COPD. Her son had also of suspected myocardial infarction but there was no autopsy performed. Recently, she came for an echocardiogram and in this context, was complaining of shortness of breath and had atrial flutter with rapid rate of unknown duration. Then she was admitted to the hospital and underwent MILA/cardioversion. Echocardiogram at that time had shown severe LV dysfunction. Since that time, patient is still not back to normal self. Lot of tiredness, fatigue, shortness of breath with activity. She is also on oxygen. Both daughter and son are here for the appointment. 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: Yes (grandson age 13, son and daughter supportive) Do you presently have visiting nurse or other home services: No Alcohol intake: current Alcohol intake frequency: does not drink Patient Tobacco Use Status: Former Tobacco user Quit Date: 20 years ago Tobacco use type: Cigarette Review of Systems Const Denies weakness ENT Denies dizziness Card Denies chest pain, Denies chest pain with activity, Denies syncope, Denies rapid heart rate, Denies pedal edema, Denies edema, Denies leg edema, Denies lightheadedness, Denies palpitations and Denies orthopnea Resp Denies cough GI Denies hematochezia and Denies change in stool character Musc Denies abnormal gait, Denies muscle cramps, Denies muscle weakness, Denies numbness, Denies radiating pain into limb and Denies tingling Neuro Denies abnormal gait, Denies dizziness, Denies syncope, Denies numbness, Denies tingling and Denies weakness Endo Denies palpitations Physical Exam Vital Signs: Last Vital Signs Pulse 66 10/30/23 13:16 BP 154/80 H 10/30/23 13:16 BMI result Body Mass Index 31.3 Const General: comfortable and no acute distress Orientation/consciousness: patient oriented x3 HEENT Other: Unremarkable Head: Yes normal to inspection Neck Neck: Yes normal visual inspection Chest Chest palpation & inspection: normal inspection of the chest Resp Auscultation: clear to auscultation bilaterally Cardio Palpation: normal PMI Heart sounds: S1 normal heart sound present, S2 normal heart sound present, no gallops, no murmurs and no rubs GI Palpation (GI): Soft to palpation Back/Spine/Pelvis Other: unremarkable Skin General skin exam: no rashes or lesions noted Neuro General: patient oriented x3 Extrem Other: Trace edema General: Yes normal to inspection Psych Mental Status: mental status grossly normal Office Procedures EKG Details: EKG with sinus rhythm at 66/Min; nonspecific ST-T changes; normal LA; slight prolongation of corrected QT to 505 milliseconds. [id number], Complete Assessment & Plan Assessment & Plan (1) Cardiomyopathy: Code(s): I42.9 - Cardiomyopathy, unspecified Plan: Recent echocardiogram showed severe LV dysfunction. Could be from combination of tachycardia induced cardiomyopathy as well as ischemic heart disease. Hypertension may play a role. We will recheck now that she is back in normal sinus rhythm. Add a small dose of diuretics. She already has renal dysfunction. May not be able to tolerate Entresto. Otherwise, probably Jardiance or Farxiga in the future. (2) Atherosclerotic cardiovascular disease: Code(s): I25.10 - Atherosclerotic heart disease of [place] coronary artery without angina pectoris Plan: Echocardiogram 2020 with normal LVEF, 60-65%; basal inferior and basal inferior septal akinesis and mild valvular calcifications. Myocardial perfusion imaging study 2020 shows probable old infarct along the inferior wall, but no ischemia. In the past, she was not interested in cardiac catheterization. We will readdress in due course. She is quite frail, on oxygen also has renal dysfunction. Otherwise, continue aspirin, statins. (3) Atrial flutter with rapid ventricular response: Code(s): I48.92 - Unspecified atrial flutter Plan: Recent MILA/cardioversion. Continue maintenance amiodarone. Borderline high QT but we are decreasing the dose from 400 mg b.i.d. to 200 mg daily. We can monitor the QT intervals. Continue anticoagulation. (4) PVC (premature ventricular contraction): Code(s): I49.3 - Ventricular premature depolarization Plan: PVCs noted on EKG in the past. No clinical consequences at this time. She is on beta-blockers and may be continued. (5) Essential hypertension: Code(s): I10 - Essential (primary) hypertension Plan: Was on amlodipine but it seems that was change in the hospital. We can resume it. New script is being sent. Plan Discussed with family who came for appointment. Total time spent including review of data from hospitalization, counseling, documentation, coordination of care-45 minutes. Orders: Orders CA echo transthoracic complete Today I42.9 - Cardiomyopathy, unspecified Basic Metabolic Panel 4 Weeks I50.22 - Chronic systolic (congestive) heart failure, N17.9 - Acute kidney failure, unspecified B Type Natriuretic Peptide 4 Weeks I50.9 - Heart failure, unspecified, N17.9 - Acute kidney failure, unspecified Medications: New furosemide (Lasix) 20 mg PO DAILY 90 tabs 3RF amlodipine (Norvasc) 5 mg PO DAILY 90 tabs 3RF Changed From amiodarone 400mg bid for 10 more days, then decrease to 200mg daily 400 mg (2 x 200 mg) PO BID 60 tabs 0RF To amiodarone 200 mg PO DAILY Coding Level of Care Code Est Pt Level 5 (10133) Diagnoses Cardiomyopathy I42.9 Atherosclerotic cardiovascular disease I25.10 Atrial flutter with rapid ventricular response I48.92 PVC (premature ventricular contraction) I49.3 Essential hypertension I10 CPT Codes EKG - CPT: 38249-[id number], Complete ([id number])
[2023-10-30 13:16] VITALS: BP 154/80; PULSE 66; BMI 31.3
== END 2023-10-30 13:48 | disposition home or self-care (01) ==
PROVIDERS: PCP Nurse Practitioner Family; Visit Provider Internal Medicine
DX: I42.9 Cardiomyopathy, unspecified (principal); I25.10 Atherosclerotic heart disease of native coronary artery without angina pectoris; I48.92 Unspecified atrial flutter; I49.3 Ventricular premature depolarization; I10 Essential (primary) hypertension
CPT/HCPCS: 93010; 99215

== ENCOUNTER → 2023-10-30 12:53 | Outpatient (BNVA) | payer MEDICARE, SELFPAY | PROVIDERS: PCP Nurse Practitioner Family; Visit Provider Internal Medicine | DX: I42.9 Cardiomyopathy, unspecified (principal); I25.10 Atherosclerotic heart disease of native coronary artery without angina pectoris; I48.92 Unspecified atrial flutter; I49.3 Ventricular premature depolarization; I10 Essential (primary) hypertension | CPT/HCPCS: 93005; 99212 ==

== ENCOUNTER 2023-11-01 10:23 | Inpatient (IN) | payer OTHER, SELFPAY ==
[2023-11-01] VITALS (8 sets, daily range): BP systolic 133–184; BP diastolic 59–76; PULSE 58–75; RESP 14–28; TEMP 36.2–37; O2SAT 93–98; BMI 31.0
--- NOTE | ~2023-11-01 | XR_ITS ---
EXAMINATION: XR CHEST CLINICAL INFORMATION: Chest pressure COMPARISON: Chest 10/12/2023, chest 05/04/2021 TECHNIQUE: Frontal view of the chest was obtained. FINDINGS: The lungs are well expanded. There are increased interstitial markings in the right upper lobe and right lower lobe. These could represent atelectasis and/or minimal pneumonia. There is blunting of the left costophrenic angle with increased opacity at the left lung base consistent with pleural effusion and atelectasis and/or pneumonia. There is mild enlargement of the cardiac silhouette. No pneumothorax. No acute osseous abnormality. XR/XR chest 1V IMPRESSION: 1. Bilateral atelectasis and/or pneumonia. 2. Mild cardiomegaly.
--- NOTE | 2023-11-01 10:37 | ECG_ITS ---
Test Reason : HTN/ABNORMAL LABS Blood Pressure : / mmHG Vent. Rate : 062 BPM Atrial Rate : 062 BPM P-R Int : 178 ms QRS Dur : 098 ms QT Int : 472 ms P-R-T Axes : 073 041 150 degrees QTc Int : 479 ms Normal sinus rhythm Nonspecific ST and T wave abnormality Abnormal ECG When compared with ECG of 13-OCT-2023 20:22, Premature ventricular complexes are no longer Present ST no longer depressed in Anterior leads T wave inversion less evident in Anterolateral leads Referred By: Generic ED Physician Electronically Signed By:LAURA RAMOS
[2023-11-01 11:07] LABS: MANUAL DIFF FLAG NO
[2023-11-01 11:08] LABS: Basophils Percent Auto 0.4 % (0-2); Eosinophils Absolute Auto 0.2 X10*3/uL (0.0-0.4); Hematocrit 22.8 % (37.0-47.0); Hemoglobin 7.2 g/dl (12.0-16.0); Imm Gran Abs Auto 0.11 X10*3/uL (0.00-0.03); Imm Gran Pct Auto 1.2 % (0.0-0.4); Lymphocytes Absolute Auto 1.5 X10*3/uL (1.2-4.9); Lymphocytes Percent Auto 16.3 % (20-40); Mean Corpuscular HGB Conc 31.6 g/dl (31.0-35.0); Mean Corpuscular Hemoglobin 29.1 pg (27.0-33.0); Mean Corpuscular Volume 92.3 fL (80.0-98.0); Mean Platelet Volume 9.3 fL (9.4-12.3); Monocytes Absolute Auto 0.8 X10*3/uL (0.1-1.2); Monocytes Percent Auto 9.2 % (2-11); Neutrophils Absolute Auto 6.5 x10*3/uL (2.0-8.3); Neutrophils Percent Auto 70.9 % (45-73); Platelet Count 326 X10*3/uL (160-400); Red Blood Count 2.47 X10*6/uL (4.20-5.50); White Blood Count 9.2 X10*3/uL (4.8-10.8)
[2023-11-01 11:14] LABS: COVID-19 Test Positive (Negative); IDNOW Serial# 152EDE1D
[2023-11-01 11:20] LABS: Partial Thromboplastin Time 37.8 SEC (26.0-36.8)
[2023-11-01 11:21] LABS: Anion Gap 11 (12-20); Blood Urea Nitrogen 27 mg/dL (9-16); Calcium 9.1 mg/dL (8.4-10.2); Carbon Dioxide 29 mmol/L (22-29); Chloride 105 mmol/L (96-108); Creatinine Clr Calc Pharmacy 32.4; Estimated Glomerular Filt Rate 32; Glucose Random 103 mg/dL (60-115); Potassium 3.8 mmol/L (3.3-5.1); Sodium 141 mmol/L (135-145)
[2023-11-01 11:27] LABS: B Type Natriuretic Peptide 2737 pg/mL (<100)
[2023-11-01 11:28] LABS: Troponin-I High Sensitivity 10.4 ng/L (<3.5-17.0)
--- NOTE | 2023-11-01 11:52 | ED_ITS ---
HPI - Recheck/Abnormal Lab/Rx General Chief Complaint: Recheck/Abnormal Lab/Rx Stated Complaint: low levels sent by Time Seen by Provider: 11/01/23 11:17 Source: patient, family, EMS and old records reviewed Mode of arrival: EMS Limitations: no limitations History of Present Illness HPI narrative: 78 yo female with PMH of CAD, COPD now on home O2, osteoporosis, HTN, CHF EF15- 20%, just admitted here 10/12-10/16 for CHF and diuresed she was also found to be in afib with RVR and cardioverted she was started on eliquis 5mg BID. She had two episodes of black stool yesterday. She has been more short of breath. PCP did labs and noted hemoglobin was low. No hx of UGIB in past. MD complaint: abnormal lab Initial visit (ago): day(s) (1) Initial visit for: other (dyspnea post hospital ) Returns today for: called because of abnormal lab/test Symptoms since prior visit: no new symptoms Context: called for abnormal lab result Associated symptoms: shortness of breath Related Data Home Medications Medication Instructions Recorded Confirmed budesonide-formoterol HFA 160 2 inh inhalation BID 11/25/20 10/30/23 mcg-4.5 mcg/actuation aerosol inhaler memantine 10 mg tablet 10 mg PO BID 11/25/20 10/30/23 loratadine 10 mg tablet (Allergy 10 mg PO DAILY 05/31/21 10/30/23 Relief (loratadine)) alendronate 70 mg tablet 70 mg PO MO 12/04/22 10/30/23 calcium carbonate 600 mg-vitamin 1 tab PO BID 10/12/23 10/30/23 D3 5 mcg (200 unit) tablet fluoxetine 20 mg capsule 20 mg PO DAILY 10/12/23 10/30/23 Previous Rx's Medication Instructions Recorded albuterol sulfate 90 mcg/actuation 2 puff inhalation Q4-6H PRN for 11/06/20 aerosol inhaler wheezing #8.5 caps pravastatin 40 mg tablet 40 mg PO DAILY #90 tabs 02/21/22 nitroglycerin 0.4 mg sublingual 0.4 mg sublingual Q5M PRN chest 01/25/23 tablet pain #14 tabs metoprolol succinate 25 mg 25 mg PO DAILY #90 tabs 04/24/23 tablet,extended release 24 hr (Toprol XL) apixaban 5 mg tablet (Eliquis) 5 mg PO BID #60 tabs 10/16/23 hydralazine 25 mg tablet 25 mg PO TID #90 tabs 10/16/23 isosorbide mononitrate 30 mg 30 mg PO DAILY #30 tabs 10/16/23 tablet,extended release 24 hr amiodarone 200 mg tablet 200 mg PO DAILY #90 tabs 10/30/23 amlodipine 5 mg tablet (Norvasc) 5 mg PO DAILY #90 tabs 10/30/23 furosemide 20 mg tablet (Lasix) 20 mg PO DAILY #90 tabs 10/30/23 Allergies Allergy/AdvReac Type Severity Reaction Status Date / Time hydrochlorothiazide Allergy Intermediate FELT Verified 10/30/23 13:16 [From ZESTORETIC] FAINT, syncope lisinopril [LISINOPRIL] Allergy Intermediate Cough Verified 10/30/23 13:16 Review of Systems 2 Review of Systems: Constitutional : No Fever, No Chills ENT/Mouth : No sore throat, No Rhinorrhea, No Swallowing Difficulty Eyes: No Eye Pain, No Swelling, No Redness Cardiovascular : No Chest Pain, positive SOB, No Orthopnea, no Edema Respiratory : No Cough, No Sputum, No Wheezing, positive dyspnea Gastrointestinal : No Nausea, No Vomiting, No Diarrhea, No abdominal Pain, No Hematochezia, pos Melena Genitourinary : No Dysuria, No Urinary Frequency, No Hematuria Musculoskeletal : No joint pain, No Myalgias Skin : No Skin Lesions, No rash Neuro : No Weakness, No Numbness, No Dizziness, No Headache Psych : No Anxiety/Panic, No Depression Heme/Lymph: No Bruising, No Lymphadenopathy Endocrine : No Polyuria, No Polydipsia All other systems reviewed and are negative PMFSH Past Medical History Source: old records reviewed Medical History Obesity (BMI 30-39.9) Cataract Wears dentures Use of cane as ambulatory aid Arthritis Low back pain High cholesterol HTN (hypertension) Environmental and seasonal allergies Restrictive lung disease Atherosclerotic cardiovascular disease COPD (chronic obstructive pulmonary disease) Surgical History Hx of colonoscopy History of tubal ligation History of ankle surgery History of lumpectomy of left breast Family History Family History Father Family history of cancer Mother Colon cancer Alzheimer disease Social History Social History Household Members: Family Housing: House 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 (grandson age 13, son and daughter supportive) Do you presently have visiting nurse or other home services: No Alcohol intake: current Alcohol intake frequency: does not drink Patient Tobacco Use Status: Former Tobacco user Quit Date: 20 years ago Tobacco use type: Cigarette Advance Directives: No Advance Directives Information Provided: No Physical Exam 2 Vital Signs: Vital Signs: Last Vital Signs Temp 98.3 F 11/01/23 11:43 Pulse 68 11/01/23 11:43 Resp 22 H 11/01/23 11:43 BP 167/68 H 11/01/23 11:43 Pulse Ox 95 11/01/23 10:28 O2 Del Method Nasal Cannula 11/01/23 10:28 Oxygen Flow Rate 2 11/01/23 10:28 BMI result Body Mass Index 31.0 Appearance: Alert. Oriented X3. No acute distress. Eyes: Pupils equal, round and reactive to light. ENT: Pharynx normal. Neck: Normal inspection. Neck supple. CVS: Normal heart rate and rhythm. Pulses normal. Respiratory: No respiratory distress. Breath sounds diminished Abdomen: Soft and nontender. Stool: darker Skin: Skin warm and dry. pale skin color. Normal skin turgor. Extremities: No lower extremity edema. No calf ttp Neuro: Oriented X 3. No motor deficit. No sensory deficit. Course Course Course Narrative: clinically I do not suspect pneumonia Medications Administered Discontinued Medications Generic Name Dose Route Start Last Admin Trade Name Freq PRN Reason Stop Dose Admin Pantoprazole Sodium 40 mg 11/01/23 11:29 11/01/23 12:03 Pantoprazole Sodium 40 Mg/10 Ml Vial IVPUSH 11/01/23 11:30 40 mg ONCE ONE Administration Medical Decision Making Medical Decision Making MDM Narrative: 78 yo female with PMH of CAD, COPD now on home O2, osteoporosis, HTN, CHF EF15- 20%, just admitted here 10/12-10/16 for CHF and diuresed here with anemia and black stools no active GIB at this time but had RADHA and anemia on arrival was on eliquis 5mg BID for afib - at this time IV protonix ordered, RBC x 1 and IV lasix. Planned admit for further monitoring and workup. Differential Diagnosis Differential Diagnoses: The differential diagnosis associated with the presentation includes UGIB, eliquis use Admission/Observation Consideration of admission/observation: Escalation of care including admission/observation considered admit for further workup Consult Healthcare Provider Management of the patient was discussed with: Hospitalist (will admit) and [employer] (Dr. Rosenbaum notified) Lab Data MDM Lab Attestation statement: I reviewed the patient's lab results. 11/01/23 10:57 11/01/23 10:57 Labs: Lab Results 11/01/23 11/01/23 11/01/23 Range/Units 10:56 10:57 11:47 WBC 9.2 (4.8-10.8) X10*3/uL RBC 2.47 L D (4.20-5.50) X10*6/uL Hgb 7.2 L D (12.0-16.0) g/dl Hct 22.8 L D (37.0-47.0) % MCV 92.3 (80.0-98.0) fL MCH 29.1 (27.0-33.0) pg MCHC 31.6 (31.0-35.0) g/dl RDW 15.0 (11.0-16.0) % Plt Count 326 D (160-400) X10*3/uL MPV 9.3 L (9.4-12.3) fL Immature Gran % (Auto) 1.2 H (0.0-0.4) % Neut % (Auto) 70.9 (45-73) % Lymph % (Auto) 16.3 L (20-40) % [place] % (Auto) 9.2 (2-11) % Eos % (Auto) 2.0 (0-4) % Baso % (Auto) 0.4 (0-2) % Lymph # (Auto) 1.5 (1.2-4.9) X10*3/uL [place] # (Auto) 0.8 (0.1-1.2) X10*3/uL Eos # (Auto) 0.2 (0.0-0.4) X10*3/uL Baso # (Auto) 0.0 (0.0-0.2) X10*3/uL Abs Immat Gran (auto) 0.11 H (0.00-0.03) X10*3/uL Absolute Neuts (auto) 6.5 (2.0-8.3) x10*3/uL Absolute Nucleated RBC 0.000 (0.0-0.012) X10*3/uL Nucleated RBC % (auto) 0.0 (0.0-0.2) /100WBC APTT 37.8 H (26.0-36.8) SEC Sodium 141 (135-145) mmol/L Potassium 3.8 (3.3-5.1) mmol/L Chloride 105 (96-108) mmol/L Carbon Dioxide 29 (22-29) mmol/L Anion Gap 11 L (12-20) BUN 27 H (9-16) mg/dL Creatinine 1.54 H (0.5-1.4) mg/dL Estim Creat Clear Calc 32.4 Estimated GFR 32 Random Glucose 103 (60-115) mg/dL Calcium 9.1 (8.4-10.2) mg/dL Magnesium 2.0 (1.6-2.6) mg/dL Troponin I High Sens 10.4 D (<3.5-17.0) ng/L B-Natriuretic Peptide 2737 H (<100) pg/mL Stool Occult Blood POSITIVE (NEGATIVE) COVID-19 ([facility]) Positive A (Negative) COVID-19 Clin Com See Note Blood Type A Positive Antibody Screen NEGATIVE Crossmatch See Detail Independent Interpretation I performed an independent interpretation of an: EKG Interpretation: Rate: 62 Rhythm: NSR [place]: normal Normal P waves. Normal JOHN. Normal QRS complex. ST T wave : no GRACIELA, nonspecific ST T wave changes ant lateral leads qTC: 479 prior studies: no acute ischemia The study has been interpreted contemporaneously by me. . Independent Historian Clinical information obtained from an independent historian. History obtained from or confirmed by: Other (daughter) Critical Care Time Critical Care Time Critical Care Time: Yes Total Critical Care Time: 45 Attestation: review of records, medical consult, transfusion I attest to this time spent taking care of the patient Discharge Plan Discharge Clinical Impression: COVID-19, Acute upper GI bleed, ABLA (acute blood loss anemia) Patient Disposition: Admitted As Inpatient
[2023-11-01] MEDS: Pantoprazole Sodium 40 MG/10 ML VIAL IVPUSH ×2 (12:03→16:01)
[2023-11-01 12:07] LABS: OBS Int Ctl Valid YES; OBS1 POSITIVE (NEGATIVE)
--- NOTE | 2023-11-01 12:42 | PC.NURSE ---
alert and oriented, respirations even and unlabored. bilateral IV's established. provider at bedside for blood transfusion consent. placed on obiee architect, nasal cannula at 3L - 95%. daughter remains at bedside. call sheth within reach
--- NOTE | 2023-11-01 13:21 | PC.NURSE ---
patient receiving blood transfusion at this time, offering no complaints. no signs/symptoms of distress noted. call sheth remains within place.
[2023-11-01 13:36] LABS: Appearance Urine Clear; Color Urine Yellow; Glucose Urine UA Negative (Negative); Leukocyte Esterase Urine Negative (Negative); Nitrite Urine Negative (Negative); PH 6.5 (5.0-9.0); Specific Gravity - Urine 1.015 (1.005-1.025); Urine Blood Negative (Negative); Urine Ketones Negative (Negative); Urine Protein Negative (Neg-Trace)
[2023-11-01 13:39] LABS: Bacteria Urine None Seen (None Seen); Hyaline Casts Urine 0-2 /LPF (0-2); RBC Urine 0-2 /HPF (0-2); Squamous Epithelial Cell Urine 0-2 /HPF (0-2); WBC Urine 0-5 /HPF (0-5)
--- NOTE | 2023-11-01 13:52 | PHA.MEDREC ---
Pharmacy Consult ? Medication Reconciliation Pharmacy has completed the medication reconciliation. Confirmed patient medications with daughter and claim history. Daughter stated that Eliquis 5mg was changed to 2.5 BID but has not been implemented yet.
--- NOTE | 2023-11-01 14:44 | P.CNGI_ITS ---
History of Present Illness Data of Consult Service Date: 11/01/23 Requesting physician: Wendy Campoverde Primary Care Provider: Annie West HPI Reason for consult: Upper GI bleeding 78 YF with CAD, COPD on 2 L of oxygen, osteoporosis, hypertension, CHF with EF 15-20% seen at [facility] ED on 11/01/23 with acute on chronic anemia. Pt was recently hospitalized at [facility] from 10/12-10/16 for acute hypoxic respiratory failure secondary to acute systolic CHF was diuresed with IV Lasix and was placed on 2 L of home oxygen, She was diagnosed to have new onset atrial fibrillation with rapid ventricular response underwent cardioversion on 10/13/2023 and was started on amiodarone and Eliquis. Her course was complicated by acute kidney injury possibly cardiorenal versus over-diuresis. Patient continued to have chronic lightheadedness and noted black stools (1 BM/day) for the past 2 days. Pt was seen by her PCP and labs showed worsening anemia and pt was sent to [place] ED. Labs in the ED showed H & H of 7.2 (decreased from 10.4 on October 16) Hx obtained from the pt and her daughter, Patricia Mcdowell (RN at [facility] and works in the [employer] and H[employer] dept) Daughter reports pt has a hx of CHEN for the past 1 to 1.5 years and was placed on oral iron replacement which was stopped in Aug, 2023. She had black stools last summer lasting for a few days. Pt denies known hx of PUD or GI bleeding in the past. She admits to a hx of smoking 1 PPD for several years and quit 20 years ago. Family hx if positive for colon and stomach cancer in a daighter in her 50's Patient denies abdominal pain, heartburn, nausea, vomiting, hematemesis, hematuria , or bright red blood per rectum. She complaints of intermittent chest pain lasting short duration and denies PND, orthopnea or worsening leg edema,. Labs in ED showed Troponin 10.4 , BNP 2737, significantly worsened from last BNP of 1008. Pt was treated with albuterol, IV Protonix, IV fluids and IV Lasix and 1 U PRBC was transfused. She was admitted to telemetry unit with a diagnosis of acute symptomatic anemia due to upper GI bleed. PAST GI HISTORY BY REVIEW OF MEDICAL RECORDS: 02/2019 colonoscopy was performed by Dr. Wayne and showed: At the hepatic flexure, there was a sessile polyp. Visualization was difficult. It was removed with a combination of biopsy forceps and cold snare with specimens being recovered in the suction. There was no significant bleeding. A small polyp was identified and removed with the biopsy forceps and cold snare in the proximal transverse colon and a small polyp was removed with the cold snare at 35 cm. Retroflexion revealed hypertrophied anal papilla and internal hemorrhoids. No other abnormalities were seen. She tolerated the procedure well. Based upon the findings and pending pathology, it is anticipated that short interval colonoscopy will be needed in 6 to 12 months to reassess the area at the hepatic flexure. 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 No other abnormalities were noted throughout the bowel. Retroflexion did not reveal any significant abnormalities. In the proximal colon, the prep was quite poor with thick dark mucoid material coating the hayward of the bowel. There was some more solid material and liquid present as well, making visualization difficult. The cecal pouch was inspected. The mucoid material was irrigated away to the extent possible. Light was seen transilluminating the right lower quadrant abdominal wall. Based upon findings, a repeat colonoscopy could be considered in 3 to 5 years with a shorter interval based upon the poor quality of this prep, however; prep quality was better 6 months ago and therefore, 5-year interval would be reasonable. Review of Systems 2 Review of Systems: Constitutional : No Fever, No Chills ENT/Mouth : No sore throat, No Rhinorrhea, No Swallowing Difficulty Eyes: No Eye Pain, No Swelling, No Redness Cardiovascular : No Chest Pain, positive SOB, No Orthopnea, no Edema Respiratory : No Cough, No Sputum, No Wheezing, positive dyspnea Gastrointestinal : No Nausea, No Vomiting, No Diarrhea, No abdominal Pain, No Hematochezia, pos Melena Genitourinary : No Dysuria, No Urinary Frequency, No Hematuria Musculoskeletal : No joint pain, No Myalgias Skin : No Skin Lesions, No rash Neuro : No Weakness, No Numbness, No Dizziness, No Headache Psych : No Anxiety/Panic, No Depression Heme/Lymph: No Bruising, No Lymphadenopathy Endocrine : No Polyuria, No Polydipsia All other systems reviewed and are negative [facility] Past Medical History Medical History (Updated 01/10/24 @ 00:03 by Aster Enamorado) CKD (chronic kidney disease) Essential hypertension Cardiomyopathy Hypoxemia Dyspnea on exertion Obesity (BMI 30-39.9) Cataract Wears dentures Use of cane as ambulatory aid Arthritis Low back pain High cholesterol HTN (hypertension) Environmental and seasonal allergies Restrictive lung disease Atherosclerotic cardiovascular disease COPD (chronic obstructive pulmonary disease) Family History Family History Father Family history of cancer Mother Colon cancer Alzheimer disease Surgical History Surgical History Hx of colonoscopy History of tubal ligation History of ankle surgery History of lumpectomy of left breast Social History Social History Household Members: Family Household Members Other:: SON LIVES IN NEXT APARTMENT Housing: House Are you a primary companion caregiver to a significant other at home: Yes (grandson age 13, son and daughter supportive) Do you presently have visiting nurse or other home services: Yes Alcohol intake: current Alcohol intake frequency: does not drink Patient Tobacco Use Status: Former Tobacco user Quit Date: 20 years ago Tobacco use type: Cigarette Advance Directives Date on File: 10/17/23 service: No Meds Allergies Allergy/AdvReac Type Severity Reaction Status Date / Time hydrochlorothiazide Allergy Intermediate FELT Verified 12/28/23 10:08 [From ZESTORETIC] FAINT, syncope lisinopril [LISINOPRIL] Allergy Intermediate Cough Verified 12/28/23 10:08 Home Medications ?Medication ?Instructions ?Recorded ?Confirmed ?Last Taken ?Type memantine 10 mg tablet 10 mg PO BID 11/25/20 01/09/24 12/28/23 History alendronate 70 mg tablet 70 mg PO MO 12/04/22 01/09/24 12/24/23 History calcium carbonate 600 mg-vitamin 1 tab PO DAILY 10/12/23 01/09/24 12/28/23 History D3 5 mcg (200 unit) tablet fluoxetine 20 mg capsule 20 mg PO DAILY 10/12/23 01/09/24 12/28/23 History pravastatin 40 mg tablet 40 mg PO BEDTIME 11/01/23 01/09/24 12/27/23 History albuterol sulfate 90 mcg/actuation 2 puff inhalation Q4H PRN for 12/28/23 01/09/24 Unknown History aerosol inhaler wheezing budesonide-formoterol HFA 160 2 puff inhalation BID 12/28/23 01/09/24 12/28/23 History mcg-4.5 mcg/actuation aerosol inhaler (Symbicort) multivit-iron 18 mg-folic acid 400 1 tab PO DAILY 12/28/23 01/09/24 12/27/23 History mcg-calcium 500 mg-minerals tablet (Women's One Daily) Physical Exam 2 Vital Signs: Vital Signs: Last Vital Signs Temp 97.9 F 11/01/23 14:00 Pulse 61 11/01/23 14:00 Resp 20 11/01/23 14:00 BP 184/69 H 11/01/23 14:00 Pulse Ox 98 11/01/23 14:00 O2 Del Method Room Air 11/01/23 14:00 Oxygen Flow Rate 2 11/01/23 10:28 BMI result Body Mass Index 31.0 Appearance: Alert. Oriented X3. No acute distress. Eyes: Pupils equal, round and reactive to light. ENT: Pharynx normal. Neck: Normal inspection. Neck supple. CVS: Normal heart rate and rhythm. Pulses normal. Respiratory: No respiratory distress. Breath sounds diminished Abdomen: Soft and nontender. Stool: darker Skin: Skin warm and dry. pale skin color. Normal skin turgor. Extremities: No lower extremity edema. No calf ttp Neuro: Oriented X 3. No motor deficit. No sensory deficit. Results Labs 11/05/23 13:55 11/06/23 07:59 Labs: Short CBC 11/01/23 Range/Units 10:57 WBC 9.2 (4.8-10.8) X10*3/uL Hgb 7.2 L D (12.0-16.0) g/dl Hct 22.8 L D (37.0-47.0) % Plt Count 326 D (160-400) X10*3/uL BMP 11/01/23 10:57 Sodium 141 Potassium 3.8 Chloride 105 Carbon Dioxide 29 BUN 27 H Creatinine 1.54 H Calcium 9.1 Urine 11/01/23 Range/Units 13:09 Urine Color Yellow Urine Appearance Clear Urine pH 6.5 (5.0-9.0) Ur Specific [place] 1.015 (1.005-1.025) Urine Protein Negative (Neg-Trace) mg/dL Urine Glucose (UA) Negative (Negative) mg/dL Assessment and Plan (1) Acute upper GI bleed: Status: Resolved (2) ABLA (acute blood loss anemia): Status: Resolved (3) COVID-19: Status: Resolved Plan 78 YF with CAD, COPD on 2 L of oxygen, osteoporosis, hypertension, CHF with EF 15-20% admitted to [facility] with acute on chronic anemia and black heme positive stools. Labs in the ED showed H & H of 7.2 & 22.8 (decreased from 10.4 & 32.3 on October 16) Pt denies known hx of PUD or GI bleeding in the past and no record of having an EGD in the past. Labs in ED showed Troponin 10.4 , BNP 2737, significantly worsened from last BNP of 1008. Pt was treated with albuterol, IV Protonix, IV fluids and IV Lasix and 1 U PRBC was transfused. Acute on chronic anemia likely from UGI source - PUD, erosive esophagitis, upper GI AVM or Dieulafoy's or malignancy RECOMMENDATIONS: 1. Agree with IV PPI and blood transfusion 2. Monitor CBC daily 3. Recommend conservative management since pt is high risk for endoscopic evaluation given CHF with low EF, COPD with oxygen dependence and COVID infection. 4. She can be reassessed once her respiratory and cardiac status improves Procedures Date of Service Date of Service: 01/12/24
--- NOTE | 2023-11-01 15:09 | P.HPHOSP_ITS ---
History of Present Illness Date of Service: 11/01/23 Chief Complaint: Black stools/abnormal labs 78-year-old female patient with past medical history significant for coronary artery disease, COPD on 2 L of oxygen, osteoporosis, hypertension, CHF with EF 15-20% recently discharged from [facility] from 10/12-10/16 for acute hypoxic respiratory failure secondary to acute systolic CHF was diuresed with IV Lasix and was placed on 2 L of home oxygen, patient was also diagnosed to have new onset atrial fibrillation with rapid ventricular response underwent cardioversion on 10/13/2023 was started on amiodarone and Eliquis, course was complicated by acute kidney injury possibly cardiorenal versus over-diuresis , patient since discharge continued to have chronic lightheadedness but yesterday noted to black stools she was evaluated by her primary care physician and had labs drawn that showed anemia therefore referred to [place] ED where hemoglobin was 7.2 with discharge hemoglobin of 10.4 on October 16, patient denies abdominal pain, no heartburn or acidity ,denies nausea, vomiting, no hematemesis, no hematuria , denies bright red blood per rectum, she complaints of intermittent chest pain lasting short duration patient is vague historian, troponin 10.4 , BNP 2737, significantly worsened from last BNP of 1 008, denies PND, no orthopnea, no worsening leg edema, in the ED patient treated with albuterol, IV Protonix, IV fluids and IV Lasix and now receiving blood transfusion and will be admitted to telemetry unit with a diagnosis of acute symptomatic anemia due to upper GI bleed. Review of Systems 2 Review of Systems: General no headache, no dizziness, chronic lightheadedness, no fever chills. CVS intermittent chest pain, no palpitation. Respiratory no cough , no shortness of breath Gastrointestinal no nausea no vomiting, no abdominal pain no urgency, no frequency Skin no rash [facility] Medical History Obesity (BMI 30-39.9) Cataract Wears dentures Use of cane as ambulatory aid Arthritis Low back pain High cholesterol HTN (hypertension) Environmental and seasonal allergies Restrictive lung disease Atherosclerotic cardiovascular disease COPD (chronic obstructive pulmonary disease) Family History Father Family history of cancer Mother Colon cancer Alzheimer disease Surgical History Hx of colonoscopy History of tubal ligation History of ankle surgery History of lumpectomy of left breast Social History Household Members: Family Housing: House Are you a primary career consultant to a significant other at home: Yes (grandson age 13, son and daughter supportive) Do you presently have visiting nurse or other home services: No Alcohol intake: current Alcohol intake frequency: does not drink Patient Tobacco Use Status: Former Tobacco user Quit Date: 20 years ago Tobacco use type: Cigarette Advance Directives: No Advance Directives Information Provided: No Meds Allergies Allergy/AdvReac Type Severity Reaction Status Date / Time hydrochlorothiazide Allergy Intermediate FELT Verified 10/30/23 13:16 [From ZESTORETIC] FAINT, syncope lisinopril [LISINOPRIL] Allergy Intermediate Cough Verified 10/30/23 13:16 Home Medications Medication Instructions Recorded Confirmed Last Taken Type memantine 10 mg tablet 10 mg PO BID 11/25/20 11/01/23 11/01/23 History alendronate 70 mg tablet 70 mg PO MO 12/04/22 11/01/23 11/01/23 History calcium carbonate 600 mg-vitamin 1 tab PO BID 10/12/23 11/01/23 11/01/23 History D3 5 mcg (200 unit) tablet fluoxetine 20 mg capsule 20 mg PO DAILY 10/12/23 11/01/23 11/01/23 History apixaban 2.5 mg tablet (Eliquis) 2.5 mg PO BID 11/01/23 11/01/23 11/01/23 History pravastatin 40 mg tablet 40 mg PO BEDTIME 11/01/23 11/01/23 11/01/23 History Physical Exam 2 Vital Signs and Narrative: Vital Signs: Last Vital Signs Temp 97.9 F 11/01/23 14:00 Pulse 61 11/01/23 14:00 Resp 20 11/01/23 14:00 BP 184/69 H 11/01/23 14:00 Pulse Ox 98 11/01/23 14:00 O2 Del Method Room Air 11/01/23 14:00 Oxygen Flow Rate 2 11/01/23 10:28 BMI result Body Mass Index 31.0 Const: Other: General resting comfortably in no acute distress. Anicteric sclera Neck supple, no JVD. CVS regular rate rhythm, Respiratory lungs clear to auscultation, no respiratory distress, no wheeze, no rhonchi. Gastrointestinal abdomen soft, non tender, bowel sounds audible, no guarding , no rigidity. Extremities no edema. Neuro non focal Skin no rash Psych appropriate affect Results Labs 11/01/23 10:57 11/01/23 10:57 Labs: Laboratory Results - last 24 hr 11/01/23 11/01/23 11/01/23 10:56 10:57 11:47 MCV 92.3 MCH 29.1 MCHC 31.6 RDW 15.0 Plt Count 326 D MPV 9.3 L Immature Gran % (Auto) 1.2 H Neut % (Auto) 70.9 Lymph % (Auto) 16.3 L Hettinger % (Auto) 9.2 Eos % (Auto) 2.0 Baso % (Auto) 0.4 Lymph # (Auto) 1.5 Hettinger # (Auto) 0.8 Eos # (Auto) 0.2 Baso # (Auto) 0.0 Abs Immat Gran (auto) 0.11 H Absolute Neuts (auto) 6.5 Absolute Nucleated RBC 0.000 Nucleated RBC % (auto) 0.0 APTT 37.8 H Anion Gap 11 L Estim Creat Clear Calc 32.4 Estimated GFR 32 Random Glucose 103 Calcium 9.1 Magnesium 2.0 B-Natriuretic Peptide 2737 H Urine Color Urine Appearance Urine pH Ur Specific [place]be Urine Protein Urine Glucose (UA) Urine Ketones Urine Blood Urine Nitrite Ur Leukocyte Esterase Urine RBC Urine WBC Ur Squamous Epith Cells Urine Bacteria Hyaline Casts Stool Occult Blood POSITIVE COVID-19 ([facility]) Positive A COVID-19 Clin Com See Note Blood Type A Positive Antibody Screen NEGATIVE Crossmatch See Detail 11/01/23 13:09 MCV MCH MCHC RDW Plt Count MPV Immature Gran % (Auto) Neut % (Auto) Lymph % (Auto) Hettinger % (Auto) Eos % (Auto) Baso % (Auto) Lymph # (Auto) Hettinger # (Auto) Eos # (Auto) Baso # (Auto) Abs Immat Gran (auto) Absolute Neuts (auto) Absolute Nucleated RBC Nucleated RBC % (auto) APTT Anion Gap Estim Creat Clear Calc Estimated GFR Random Glucose Calcium Magnesium B-Natriuretic Peptide Urine Color Yellow Urine Appearance Clear Urine pH 6.5 Ur Specific Elbe 1.015 Urine Protein Negative Urine Glucose (UA) Negative Urine Ketones Negative Urine Blood Negative Urine Nitrite Negative Ur Leukocyte Esterase Negative Urine RBC 0-2 Urine WBC 0-5 Ur Squamous Epith Cells 0-2 Urine Bacteria None Seen Hyaline Casts 0-2 Stool Occult Blood COVID-19 ([facility]) COVID-19 Clin Com Blood Type Antibody Screen Crossmatch Imaging Radiologist's Impressions: Impressions Chest X-Ray 11/01/23 11:13 IMPRESSION: 1. Bilateral atelectasis and/or pneumonia. 2. Mild cardiomegaly. Assessment and Plan (1) ABLA (acute blood loss anemia): Status: Acute (2) Acute upper GI bleed: Status: Acute Plan 78-year-old female with past medical history significant for coronary artery disease, COPD not on home O2 2 L, osteoporosis, hypertension, chronic CHF with EF 15-20% recently discharged from [facility] 10/12-10/16 for CHF and diuresed , atrial fib with RVR and acute kidney injury was discharged home on amiodarone, and Eliquis return back with 2 episodes of black stools yesterday associated with chronic lightheadedness patient is being admitted for acute symptomatic blood loss anemia . Acute symptomatic blood loss anemia likely due to acute upper GI bleed. Receiving 1 unit of packed RBC follow CBC Hold Eliquis and Fosamax, question need for continued Fosamax IV Protonix 40 b.i.d. GI consult for possible upper endoscopy. Monitor serial CBC New onset atrial fibrillation diagnosed in September 2023 Status post cardioversion now in normal sinus rhythm continue metoprolol and amiodarone Hold Eliquis as above. Will decrease dose of Eliquis to 2.5 mg b.i.d. upon discharge if okay with GI to resume anticoagulation. Recently diagnosed acute kidney injury, creatinine improved to 1.54 with discharge creatinine of 2.58, monitor BNP. Coronary artery disease continue statins beta-blockers and outpatient follow-up with Dr. Mathew, History of chronic intermittent chest pain, no chest pain at present, normal troponin. Congestive heart failure with reduced EF no evidence of acute decompensation, elevated BNP likely due to kidney disease, continue home dose of Lasix. Hypertension on multiple antihypertensives elevated blood pressure continue all home medications and follow BP DVT prophylaxis with compression boots Full code Patient will need to night inpatient stay for management of acute symptomatic anemia requiring blood transfusion and expert consultation with possible upper endoscopy. Quality Stroke Does the patient have a stroke diagnosis?: No VTE Prior VTE?: No VTE Risk Level:: Medical - moderate - high VTE Device Contraindication: N/A - Device Ordered VTE Drug Contraindication: Treatment Not Indicated
[2023-11-01] MEDS: Furosemide 20 MG/2 ML VIAL IVPUSH (16:01)
[2023-11-01] MEDS: 0.9 % Sodium Chloride Flush 3 ML SYRINGE IVFLUSH ×2 (16:02→23:38)
[2023-11-01] MEDS: ondansetron HCL 4 MG/2 ML VIAL IVPUSH (17:50)
--- NOTE | 2023-11-01 17:53 | PC.NURSE ---
continues to rest quietly in room, ambulating independent of assistive device with daughter. complaining of nausea, utilized PRN zofran at this time.
[2023-11-01] MEDS: Memantine HCl 10 MG TABLET PO (20:20)
[2023-11-01] MEDS: hydrALAZINE HCl 25 MG TABLET PO (20:20)
[2023-11-01] MEDS: Pravastatin Sodium 40 MG TABLET PO (20:20)
[2023-11-01 20:43] LABS: Hemoglobin 8.2 g/dl (12.0-16.0)
[2023-11-02] VITALS (9 sets, daily range): BP systolic 161–190; BP diastolic 70–83; PULSE 63–73; RESP 16–18; TEMP 36.2–37.1; O2SAT 92–97
[2023-11-02] MEDS: Albuterol/Iprat 2.5/0.5MG 3 ML AMPUL.NEB INHALE ×2 (00:04→19:40)
[2023-11-02] MEDS: Pantoprazole Sodium 40 MG/10 ML VIAL IVPUSH ×2 (05:56→16:46)
[2023-11-02 07:01] LABS: Hematocrit 25.5 % (37.0-47.0); Hemoglobin 7.9 g/dl (12.0-16.0); Mean Corpuscular Hemoglobin 28.3 pg (27.0-33.0); Mean Corpuscular Volume 91.4 fL (80.0-98.0); Mean Platelet Volume 9.7 fL (9.4-12.3); Platelet Count 281 X10*3/uL (160-400); Red Blood Count 2.79 X10*6/uL (4.20-5.50); Red Cell Distribution Width 15.1 % (11.0-16.0); White Blood Count 10.9 X10*3/uL (4.8-10.8)
[2023-11-02 07:21] LABS: Anion Gap 13 (12-20); Blood Urea Nitrogen 26 mg/dL (9-16); Calcium 8.6 mg/dL (8.4-10.2); Carbon Dioxide 29 mmol/L (22-29); Chloride 101 mmol/L (96-108); Creatinine Clr Calc Pharmacy 32.1; Estimated Glomerular Filt Rate 32; Glucose Random 119 mg/dL (60-115); Potassium 4.2 mmol/L (3.3-5.1); Sodium 139 mmol/L (135-145)
[2023-11-02] MEDS: Isosorbide Mononitrate 30 MG TAB.ER.24H PO (09:31)
[2023-11-02] MEDS: FLUoxetine HCl 20 MG CAPSULE PO (09:32)
[2023-11-02] MEDS: Amiodarone HCL 200 MG TABLET PO (09:32)
[2023-11-02] MEDS: Metoprolol Succinate ER 25 MG TAB.ER.24H PO (09:32)
[2023-11-02] MEDS: Furosemide 20 MG TABLET PO (09:32)
[2023-11-02] MEDS: hydrALAZINE HCl 25 MG TABLET PO ×3 (09:32→20:03)
[2023-11-02] MEDS: Memantine HCl 10 MG TABLET PO ×2 (09:32→20:03)
--- NOTE | 2023-11-02 09:32 | MHC.CM.PN ---
IMM 11/02/23, Pt. lives with family, her daughter Brianna in her HCP, doc in chart, she was inpatient here, DC 10/16 with a referral to [facility], but this had not started yet. CM will follow up with them today. Pt has med equip of cane, walker, home O2, which is new to her and she cannot recall from which company. She does not have services from [facility], she has been to outpatient rehab in [place]. Dtr to transport home upon DC. CM to follow and assist with DC plan.
[2023-11-02] MEDS: 0.9 % Sodium Chloride Flush 3 ML SYRINGE IVFLUSH ×3 (09:33→18:29)
[2023-11-02] MEDS: Acetaminophen 325 MG TABLET 650 MG PO ×2 (09:37→20:03)
--- NOTE | 2023-11-02 10:46 | PM.CNCAR ---
History of Present Illness History of Present Illness Date of Service: 11/02/23 Chief complaint: acute blood loss anemia Narrative: This is a cardiology consultation regarding GI bleeding and recent cardioversion and anticoagulation use. Patient has many comorbidities. She has cardiomyopathy which could be from some combination of ischemic as well as tachycardia immediate cardiomyopathy. She also had recently diagnosed atrial flutter with rapid rate for which she underwent MILA as well as cardioversion. Then she was put on amiodarone and Eliquis. Current admissions because of black stools. Then found to be anemic and hence she has been sent to the hospital and admitted. She has been seen by GI and there is a plan for possible endoscopy but she is also COVID positive and hence timing has not yet been decided. According to patient, she does feel short of breath. Not clear if it is because of COVID or congestive heart failure or combination of both. She is getting blood transfusions. Review of Systems Review of Systems: Yes all other systems are reviewed and are negative Constitutional: Constitutional: Reports as per HPI and Reports no additional constitutional complaints Eyes: Eyes: Reports as per HPI and Denies no additional eye complaints ENT: Denies system reviewed and no additional complaints, except as documented and Reports as per HPI Cardiovascular: Cardiovascular: Reports as per HPI, Reports no additional cardiovascular complaints, Denies acrocyanosis, Denies cool extremities, Denies chest pain, Denies leg edema, Denies lightheadedness, Denies palpitations and Reports dyspnea Respiratory: Respiratory: Reports as per HPI, Denies no additional respiratory complaints and Reports dyspnea Gastrointestinal: Gastrointestinal: Reports as per HPI and Denies no additional gastrointestinal complaints Genitourinary: Genitourinary: Reports as per HPI Musculoskeletal: Musculoskeletal: Reports no additional musculoskeletal complaints and Reports as per HPI Integumentary/Breasts: Skin/Breast: Reports system reviewed and no additional complaints, except as docu Neurologic: Reports system reviewed and no additional complaints, except as documented and Reports as per HPI Psychiatric: Psychiatric: Reports no additional psychiatric complaints and Reports as per HPI Endocrine: Endocrine: Reports no additional endocrine complaints, Reports as per HPI and Denies palpitations Hematologic/Lymphatic: Hematologic/Lymphatic: Reports no additional hematologic/lymphatic complaints and Reports as per HPI Allergic/Immunologic: Allergic/Immunologic: Reports no additional allergic/immunologic complaints and Reports as per HPI [facility] Past Medical History Medical History Obesity (BMI 30-39.9) Cataract Wears dentures Use of cane as ambulatory aid Arthritis Low back pain High cholesterol HTN (hypertension) Environmental and seasonal allergies Restrictive lung disease Atherosclerotic cardiovascular disease COPD (chronic obstructive pulmonary disease) Family History Family History Father Family history of cancer Mother Colon cancer Alzheimer disease Surgical History Surgical History Hx of colonoscopy History of tubal ligation History of ankle surgery History of lumpectomy of left breast Social History Social History Household Members: Family Household Members Other:: SON LIVES IN NEXT APARTMENT Housing: Apartment Are you a primary toddler caregiver to a significant other at home: Yes (grandson age 13, son and daughter supportive) Do you presently have visiting nurse or other home services: No (IN PROCESS OF TRYING TO GET) Alcohol intake: current Alcohol intake frequency: does not drink Patient Tobacco Use Status: Former Tobacco user Quit Date: 20 years ago Tobacco use type: Cigarette service: No Meds Allergies Allergy/AdvReac Type Severity Reaction Status Date / Time hydrochlorothiazide Allergy Intermediate FELT Verified 10/30/23 13:16 [From ZESTORETIC] FAINT, syncope lisinopril [LISINOPRIL] Allergy Intermediate Cough Verified 10/30/23 13:16 Active Medications: Current Medications Acetaminophen (Acetaminophen 325 Mg Tablet) 650 mg PO Q6H PRN PRN Reason: Pain, Mild (Pain Scale 1-3) Last Admin: 11/02/23 09:37 Dose: 650 mg Albuterol Sulfate (Albuterol Sulfate 90 Mcg 8 Gm Inhaler) 2 puff INHALE Q4H PRN PRN Reason: for wheezing Albuterol/Ipratropium (Albuterol/Iprat 2.5/0.5mg 3 Ml Ampul.Neb) 3 ml INHALE RQ4H WHILE AWAKE PRN PRN Reason: Shortness of Breath/Wheezing Last Admin: 11/02/23 00:04 Dose: 3 ml Amiodarone HCl (Amiodarone Hcl 200 Mg Tablet) 200 mg PO DAILY GUST[facility]O Last Admin: 11/02/23 09:32 Dose: 200 mg Amlodipine Besylate (Amlodipine Besylate 5 Mg Tablet) 5 mg PO DAILY [facility]; Protocol Docusate Sodium (Docusate Sodium 100 Mg Capsule) 100 mg PO DAILY PRN PRN Reason: Constipation Fluoxetine HCl (Fluoxetine Hcl 20 Mg Capsule) 20 mg PO DAILY [facility] Last Admin: 11/02/23 09:32 Dose: 20 mg Furosemide (Furosemide 40 Mg/4 Ml Vial) 40 mg IVPUSH DAILY [facility]; Protocol Hydralazine HCl (Hydralazine Hcl 25 Mg Tablet) 25 mg PO TID [facility]; Protocol Last Admin: 11/02/23 09:32 Dose: 25 mg Isosorbide Mononitrate (Isosorbide Mononitrate 30 Mg Tab.Er.24h) 30 mg PO DAILY [facility]; Protocol Last Admin: 11/02/23 09:31 Dose: 30 mg Melatonin (Melatonin 3 Mg Tablet) 3 mg PO BEDTIME PRN PRN Reason: Insomnia Memantine (Memantine Hcl 10 Mg Tablet) 10 mg PO BID [facility] Last Admin: 11/02/23 09:32 Dose: 10 mg Metoprolol Succinate (Metoprolol Succinate Er 25 Mg Tab.Er.24h) 25 mg PO DAILY [facility]; Protocol Last Admin: 11/02/23 09:32 Dose: 25 mg Nitroglycerin (Nitroglycerin 0.4 Mg Tab.Subl) 0.4 mg SUBLINGUAL Q5M PRN PRN Reason: chest pain Ondansetron HCl (Ondansetron Hcl 4 Mg/2 Ml Vial) 4 mg IVPUSH Q8H PRN PRN Reason: Nausea and Vomiting Last Admin: 11/01/23 17:50 Dose: 4 mg Pantoprazole Sodium (Pantoprazole Sodium 40 Mg/10 Ml Vial) 40 mg IVPUSH BID@0630,1630 [facility] Last Admin: 11/02/23 05:56 Dose: 40 mg Pravastatin Sodium (Pravastatin Sodium 40 Mg Tablet) 40 mg PO BEDTIME [facility] Last Admin: 11/01/23 20:20 Dose: 40 mg Sodium Chloride (0.9 % Sodium Chloride Flush 3 Ml Syringe) 3 ml IVFLUSH QSHIFT [facility] Last Admin: 11/02/23 09:33 Dose: 3 ml Home Medications Medication Instructions Recorded Confirmed Last Taken Type memantine 10 mg tablet 10 mg PO BID 11/25/20 11/01/23 11/01/23 History alendronate 70 mg tablet 70 mg PO MO 12/04/22 11/01/23 11/01/23 History calcium carbonate 600 mg-vitamin 1 tab PO BID 10/12/23 11/01/23 11/01/23 History D3 5 mcg (200 unit) tablet fluoxetine 20 mg capsule 20 mg PO DAILY 10/12/23 11/01/23 11/01/23 History apixaban 2.5 mg tablet (Eliquis) 2.5 mg PO BID 11/01/23 11/01/23 11/01/23 History pravastatin 40 mg tablet 40 mg PO BEDTIME 11/01/23 11/01/23 11/01/23 History Physical Exam Vital Signs: Vital Signs: Last Vital Signs Temp 98.5 F 11/02/23 07:23 Pulse 73 11/02/23 07:23 Resp 18 11/02/23 07:23 BP 161/70 H 11/02/23 07:23 Pulse Ox 92 11/02/23 07:23 O2 Del Method Nasal Cannula 11/02/23 07:23 O2 Flow Rate 2 11/02/23 07:23 Oxygen Flow Rate 2 11/01/23 10:28 BMI result Body Mass Index 31.0 Const: General: comfortable and no acute distress Orientation/consciousness: patient oriented x3 HEENT: Other: Unremarkable Head: Yes normal to inspection Neck: Neck: Yes normal visual inspection Chest: Chest palpation & inspection: normal inspection of the chest Resp: Auscultation: wheezes Cardio: Palpation: normal PMI Heart sounds: S1 normal heart sound present, S2 normal heart sound present, no gallops, no murmurs and no rubs GI: Palpation (GI): Soft to palpation Back/Spine/Pelvis: Other: unremarkable Skin: General skin exam: no rashes or lesions noted Neuro: General: patient oriented x3 Extrem: General: Yes normal to inspection Psych: Mental Status: mental status grossly normal Objective Labs and Meds 11/02/23 06:24 11/02/23 06:24 Lab results: Laboratory Results - last 24 hr 11/01/23 11/01/23 11/01/23 10:56 10:57 11:47 WBC 9.2 RBC 2.47 L D Hgb 7.2 L D Hct 22.8 L D MCV 92.3 MCH 29.1 MCHC 31.6 RDW 15.0 Plt Count 326 D MPV 9.3 L Immature Gran % (Auto) 1.2 H Neut % (Auto) 70.9 Lymph % (Auto) 16.3 L Eddy % (Auto) 9.2 Eos % (Auto) 2.0 Baso % (Auto) 0.4 Lymph # (Auto) 1.5 Eddy # (Auto) 0.8 Eos # (Auto) 0.2 Baso # (Auto) 0.0 Abs Immat Gran (auto) 0.11 H Absolute Neuts (auto) 6.5 Absolute Nucleated RBC 0.000 Nucleated RBC % (auto) 0.0 APTT 37.8 H Sodium 141 Potassium 3.8 Chloride 105 Carbon Dioxide 29 Anion Gap 11 L BUN 27 H Creatinine 1.54 H Estim Creat Clear Calc 32.4 Estimated GFR 32 Random Glucose 103 Calcium 9.1 Magnesium 2.0 Troponin I High Sens 10.4 D B-Natriuretic Peptide 2737 H Urine Color Urine Appearance Urine pH Ur Specific [place] Urine Protein Urine Glucose (UA) Urine Ketones Urine Blood Urine Nitrite Ur Leukocyte Esterase Urine RBC Urine WBC Ur Squamous Epith Cells Urine Bacteria Hyaline Casts Stool Occult Blood POSITIVE COVID-19 (KAYDEN) Positive A COVID-19 Clin Com See Note Blood Type A Positive Antibody Screen NEGATIVE Crossmatch See Detail 11/01/23 11/01/23 11/02/23 13:09 20:33 06:24 WBC 10.9 H RBC 2.79 L Hgb 8.2 L 7.9 L Hct 26.0 L 25.5 L MCV 91.4 MCH 28.3 MCHC 31.0 RDW 15.1 Plt Count 281 MPV 9.7 Immature Gran % (Auto) Neut % (Auto) Lymph % (Auto) Eddy % (Auto) Eos % (Auto) Baso % (Auto) Lymph # (Auto) Eddy # (Auto) Eos # (Auto) Baso # (Auto) Abs Immat Gran (auto) Absolute Neuts (auto) Absolute Nucleated RBC 0.000 Nucleated RBC % (auto) 0.0 APTT Sodium 139 Potassium 4.2 Chloride 101 Carbon Dioxide 29 Anion Gap 13 BUN 26 H Creatinine 1.55 H Estim Creat Clear Calc 32.1 Estimated GFR 32 Random Glucose 119 H Calcium 8.6 Magnesium Troponin I High Sens B-Natriuretic Peptide Urine Color Yellow Urine Appearance Clear Urine pH 6.5 Ur Specific [place] 1.015 Urine Protein Negative Urine Glucose (UA) Negative Urine Ketones Negative Urine Blood Negative Urine Nitrite Negative Ur Leukocyte Esterase Negative Urine RBC 0-2 Urine WBC 0-5 Ur Squamous Epith Cells 0-2 Urine Bacteria None Seen Hyaline Casts 0-2 Stool Occult Blood COVID-19 (KAYDEN) COVID-19 Clin Com Blood Type Antibody Screen Crossmatch ECG Interpretation: EKG with sinus rhythm at 62/Min; nonspecific ST-T changes; normal ID and corrected QT. Imaging Radiologist's impression: Impressions Chest X-Ray 11/01/23 11:13 IMPRESSION: 1. Bilateral atelectasis and/or pneumonia. 2. Mild cardiomegaly. Assessment and Plan (1) Acute upper GI bleed: Status: Acute (2) COVID-19: Status: Acute (3) Cardiomyopathy: Status: Acute (4) Acute systolic (congestive) heart failure: Status: Acute (5) Atherosclerotic cardiovascular disease: Status: Acute Plan Complicated clinical situation including older age, frailty, suspected coronary disease, cardiomyopathy with markedly diminished LVEF, probably some congestive heart failure, COVID, bleeding. Considering her comorbidities, she would be at high cardiac risk for any form of GI workup. However, to identify the source of bleed she missed still needed. Considering the fact that she has been having black stools and profound anemia, may hold off on Eliquis and resume the stroke risk as there is no other way. Otherwise, diuretics. Blood transfusions with ongoing diuretics as she otherwise might go into worsening heart failure. Management of COVID. Overall, complicated situation with guarded prognosis and high risk of decompensation. Discussed with Bree Urbina. Procedures Date of Service Date of Service: 11/02/23
[2023-11-02] MEDS: Furosemide 40 MG/4 ML VIAL IVPUSH ×4 (12:05→18:29)
--- NOTE | 2023-11-02 12:12 | P.PNIM_ITS ---
Subjective Subjective Date of Service: 11/02/23 Interval History: seen and examined this morning follow up for GI bleeding, anemia denies sob vague historian Review of Systems Review of Systems: Yes all other systems are reviewed and are negative Constitutional Constitutional: Denies chills and Denies fever(s) Cardiovascular Cardiovascular: Denies chest pain, Denies palpitations and Denies dyspnea Respiratory Respiratory: Denies cough and Denies dyspnea Gastrointestinal Gastrointestinal: Denies abdominal pain Endocrine Endocrine: Denies palpitations Physical Exam 2 Vital Signs: Vital Signs: Last Vital Signs Temp 97.7 F 11/02/23 11:33 Pulse 71 11/02/23 11:33 Resp 18 11/02/23 11:33 BP 169/74 H 11/02/23 11:33 Pulse Ox 92 11/02/23 11:33 O2 Del Method Nasal Cannula 11/02/23 11:33 O2 Flow Rate 2 11/02/23 11:33 Oxygen Flow Rate 2 11/01/23 10:28 BMI result Body Mass Index 31.0 Const: General: cooperative, comfortable, no acute distress, alert and awake Nutritional Appearance: overweight Orientation/consciousness: oriented to person and oriented to place Resp: Other: expiratory wheeze Effort & Inspection: normal respiratory effort, able to speak in complete sentences, no respiratory distress and no use of accessory muscles Cardio: Rate: regular rate GI: Inspection: No distended Palpation (GI): Soft to palpation and nontender Neuro: General: oriented to person, oriented to place, moves all extremities and CN's II-XI intact bilaterally Extrem: General: Yes no pedal edema Objective Data Active Medications Acetaminophen (Acetaminophen 325 Mg Tablet) 650 mg PO Q6H PRN PRN Reason: Pain, Mild (Pain Scale 1-3) Last Admin: 11/02/23 09:37 Dose: 650 mg Documented By: DWIGHT Albuterol Sulfate (Albuterol Sulfate 90 Mcg 8 Gm Inhaler) 2 puff INHALE Q4H PRN PRN Reason: for wheezing Albuterol/Ipratropium (Albuterol/Iprat 2.5/0.5mg 3 Ml Ampul.Neb) 3 ml INHALE RQ4H WHILE AWAKE PRN PRN Reason: Shortness of Breath/Wheezing Last Admin: 11/02/23 00:04 Dose: 3 ml Documented By: HO.MATOSLU Amiodarone HCl (Amiodarone Hcl 200 Mg Tablet) 200 mg PO DAILY [facility] Last Admin: 11/02/23 09:32 Dose: 200 mg Documented By: DWIGHT Amlodipine Besylate (Amlodipine Besylate 5 Mg Tablet) 5 mg PO DAILY [facility]; Protocol Docusate Sodium (Docusate Sodium 100 Mg Capsule) 100 mg PO DAILY PRN PRN Reason: Constipation Fluoxetine HCl (Fluoxetine Hcl 20 Mg Capsule) 20 mg PO DAILY [facility] Last Admin: 11/02/23 09:32 Dose: 20 mg Documented By: DWIGHT Furosemide (Furosemide 40 Mg/4 Ml Vial) 40 mg IVPUSH BID@0900,1800 [facility]; Protocol Hydralazine HCl (Hydralazine Hcl 25 Mg Tablet) 25 mg PO TID [facility]; Protocol Last Admin: 11/02/23 09:32 Dose: 25 mg Documented By: DWIGHT Isosorbide Mononitrate (Isosorbide Mononitrate 30 Mg Tab.Er.24h) 30 mg PO DAILY [facility]; Protocol Last Admin: 11/02/23 09:31 Dose: 30 mg Documented By: DWIGHT Melatonin (Melatonin 3 Mg Tablet) 3 mg PO BEDTIME PRN PRN Reason: Insomnia Memantine (Memantine Hcl 10 Mg Tablet) 10 mg PO BID [facility] Last Admin: 11/02/23 09:32 Dose: 10 mg Documented By: DWIGHT Metoprolol Succinate (Metoprolol Succinate Er 25 Mg Tab.Er.24h) 25 mg PO DAILY [facility]; Protocol Last Admin: 11/02/23 09:32 Dose: 25 mg Documented By: DWIGHT Nitroglycerin (Nitroglycerin 0.4 Mg Tab.Subl) 0.4 mg SUBLINGUAL Q5M PRN PRN Reason: chest pain Nystatin (Nystatin Powder 15 Gm Bottle) 1 appl TOPICAL BID [facility]; Protocol Ondansetron HCl (Ondansetron Hcl 4 Mg/2 Ml Vial) 4 mg IVPUSH Q8H PRN PRN Reason: Nausea and Vomiting Last Admin: 11/01/23 17:50 Dose: 4 mg Documented By: JOSS Pantoprazole Sodium (Pantoprazole Sodium 40 Mg/10 Ml Vial) 40 mg IVPUSH BID@0630,1630 [facility] Last Admin: 11/02/23 05:56 Dose: 40 mg Documented By: ISMAEL Pravastatin Sodium (Pravastatin Sodium 40 Mg Tablet) 40 mg PO BEDTIME [facility] Last Admin: 11/01/23 20:20 Dose: 40 mg Documented By: ISMAEL Sodium Chloride (0.9 % Sodium Chloride Flush 3 Ml Syringe) 3 ml IVFLUSH QSHIFT [facility] Last Admin: 11/02/23 09:33 Dose: 3 ml Documented By: DWIGHT Labs 11/02/23 06:24 11/02/23 06:24 Labs: Laboratory Results - last 24 hr 11/01/23 11/01/23 11/02/23 10:56 13:09 06:24 MCV 91.4 MCH 28.3 MCHC 31.0 RDW 15.1 Plt Count 281 MPV 9.7 Absolute Nucleated RBC 0.000 Nucleated RBC % (auto) 0.0 Anion Gap 13 Estim Creat Clear Calc 32.1 Estimated GFR 32 Random Glucose 119 H Calcium 8.6 Urine Color Yellow Urine Appearance Clear Urine pH 6.5 Ur Specific [place] 1.015 Urine Protein Negative Urine Glucose (UA) Negative Urine Ketones Negative Urine Blood Negative Urine Nitrite Negative Ur Leukocyte Esterase Negative Urine RBC 0-2 Urine WBC 0-5 Ur Squamous Epith Cells 0-2 Urine Bacteria None Seen Hyaline Casts 0-2 Blood Type A Positive Antibody Screen NEGATIVE Crossmatch See Detail Assessment and Plan (1) ABLA (acute blood loss anemia): Status: Acute (2) Acute upper GI bleed: Status: Acute (3) COVID-19: Status: Acute Plan 78-year-old female with past medical history significant for coronary artery disease, COPD not on home O2 2 L, osteoporosis, hypertension, chronic CHF with EF 15-20% recently discharged from [facility] 10/12-10/16 for CHF and diuresed , atrial fib with RVR and acute kidney injury was discharged home on amiodarone, and Eliquis return back with 2 episodes of black stools yesterday associated with chronic lightheadedness patient is being admitted for acute symptomatic blood loss anemia . Acute symptomatic blood loss anemia likely due to acute upper GI bleed. s/p 1 unit of packed RBC 11/01, will transfuse additional unit today Hold Eliquis and Fosamax, question need for continued Fosamax continue IV Protonix 40 b.i.d. seen by GI - rec conservative management for now given covid + and underlying CAD, CHF. high cardiac risk per cardiology Monitor serial CBC Covid 19 no acute hypoxia, on baseline oxygen no significant respiratory symptoms acute on chronic Congestive heart failure with reduced EF EF 20-25% will start IV lasix cardiology following New onset atrial fibrillation diagnosed in September 2023 Status post recent cardioversion on previous admission, now in normal sinus rhythm continue metoprolol and amiodarone Hold Eliquis as above probable CKD3 creatinine higher on previous admission follow renal function Coronary artery disease continue statins, beta-bernadette History of chronic intermittent chest pain, no chest pain at present, normal troponin, planned for outpatient ischemic workup Hypertension on multiple antihypertensives - continue norvasc, toprol xl, hydralazine DVT prophylaxis with compression boots Full code Patient will need to night inpatient stay for management of acute symptomatic anemia requiring blood transfusion and expert consultation with possible upper endoscopy. Quality Stroke Does the patient have a stroke diagnosis?: No VTE Prior VTE?: No VTE Risk Level:: Medical - moderate - high VTE Device Contraindication: N/A - Device Ordered VTE Drug Contraindication: Treatment Not Indicated
[2023-11-02] MEDS: amLODIPine Besylate 5 MG TABLET PO (12:44)
[2023-11-02] MEDS: Nystatin Powder 15 GM BOTTLE 1 APPL TOPICAL (16:47)
[2023-11-02] MEDS: Pravastatin Sodium 40 MG TABLET PO (20:03)
[2023-11-03] VITALS (9 sets, daily range): BP systolic 137–180; BP diastolic 61–73; PULSE 61–80; RESP 14–20; TEMP 36–36.8; O2SAT 93–98
[2023-11-03] MEDS: Acetaminophen 325 MG TABLET 650 MG PO (05:43)
[2023-11-03] MEDS: Pantoprazole Sodium 40 MG/10 ML VIAL IVPUSH ×2 (05:44→15:51)
[2023-11-03] MEDS: Nystatin Powder 15 GM BOTTLE 1 APPL TOPICAL ×2 (05:44→10:02)
[2023-11-03 06:35] LABS: Hematocrit 29.5 % (37.0-47.0); Hemoglobin 9.5 g/dl (12.0-16.0); Mean Corpuscular HGB Conc 32.2 g/dl (31.0-35.0); Mean Corpuscular Hemoglobin 28.9 pg (27.0-33.0); Mean Corpuscular Volume 89.7 fL (80.0-98.0); Mean Platelet Volume 9.7 fL (9.4-12.3); Platelet Count 267 X10*3/uL (160-400); Red Blood Count 3.29 X10*6/uL (4.20-5.50); Red Cell Distribution Width 15.3 % (11.0-16.0); White Blood Count 8.9 X10*3/uL (4.8-10.8)
[2023-11-03 06:58] LABS: Anion Gap 13 (12-20); Blood Urea Nitrogen 29 mg/dL (9-16); Calcium 8.2 mg/dL (8.4-10.2); Carbon Dioxide 29 mmol/L (22-29); Chloride 98 mmol/L (96-108); Creatinine Clr Calc Pharmacy 27.8; Estimated Glomerular Filt Rate 27; Glucose Random 113 mg/dL (60-115); Potassium 3.4 mmol/L (3.3-5.1); Sodium 137 mmol/L (135-145)
[2023-11-03 08:31] LABS: B Type Natriuretic Peptide 2353 pg/mL (<100)
[2023-11-03] MEDS: Isosorbide Mononitrate 30 MG TAB.ER.24H PO (09:58)
[2023-11-03] MEDS: hydrALAZINE HCl 25 MG TABLET PO (09:59)
[2023-11-03] MEDS: Furosemide 40 MG/4 ML VIAL IVPUSH ×3 (09:59→20:52)
[2023-11-03] MEDS: Metoprolol Succinate ER 25 MG TAB.ER.24H PO (09:59)
[2023-11-03] MEDS: FLUoxetine HCl 20 MG CAPSULE PO (09:59)
[2023-11-03] MEDS: 0.9 % Sodium Chloride Flush 3 ML SYRINGE IVFLUSH ×2 (09:59→15:52)
[2023-11-03] MEDS: Amiodarone HCL 200 MG TABLET PO (09:59)
[2023-11-03] MEDS: amLODIPine Besylate 10 MG TABLET PO (09:59)
[2023-11-03] MEDS: Memantine HCl 10 MG TABLET PO ×2 (09:59→20:52)
[2023-11-03] MEDS: Albuterol/Iprat 2.5/0.5MG 3 ML AMPUL.NEB INHALE ×3 (10:50→20:14)
--- NOTE | 2023-11-03 13:01 | P.PNIM_ITS ---
Subjective Subjective Date of Service: 11/03/23 Interval History: seen and examined this morning follow up for GI bleed, CHF, COVID no sob, no cough, fever, chills, body aches no dark stools Review of Systems Review of Systems: Yes all other systems are reviewed and are negative Constitutional Constitutional: Denies chills and Denies fever(s) Cardiovascular Cardiovascular: Denies chest pain, Denies palpitations and Denies dyspnea Respiratory Respiratory: Denies cough and Denies dyspnea Endocrine Endocrine: Denies palpitations Physical Exam 2 Vital Signs: Vital Signs: Last Vital Signs Temp 98.0 F 11/03/23 11:15 Pulse 80 11/03/23 11:15 Resp 20 11/03/23 11:15 BP 158/67 H 11/03/23 11:15 Pulse Ox 93 11/03/23 11:15 O2 Del Method Nasal Cannula 11/03/23 11:15 O2 Flow Rate 4 11/03/23 11:15 Oxygen Flow Rate 2 11/01/23 10:28 BMI result Body Mass Index 31.0 Const: General: cooperative, comfortable, no acute distress, alert and awake Nutritional Appearance: overweight Orientation/consciousness: oriented to person and oriented to place Resp: Other: expiratory wheeze Effort & Inspection: normal respiratory effort, able to speak in complete sentences, no respiratory distress and no use of accessory muscles Cardio: Rate: regular rate GI: Inspection: No distended Palpation (GI): Soft to palpation and nontender Neuro: General: oriented to person, oriented to place, moves all extremities and CN's II-XI intact bilaterally Extrem: General: Yes no pedal edema Objective Data Active Medications Acetaminophen (Acetaminophen 325 Mg Tablet) 650 mg PO Q6H PRN PRN Reason: Pain, Mild (Pain Scale 1-3) Last Admin: 11/03/23 05:43 Dose: 650 mg Documented By: ANIBAL Albuterol Sulfate (Albuterol Sulfate 90 Mcg 8 Gm Inhaler) 2 puff INHALE Q4H PRN PRN Reason: for wheezing Albuterol/Ipratropium (Albuterol/Iprat 2.5/0.5mg 3 Ml Ampul.Neb) 3 ml INHALE RQ4H WHILE AWAKE [facility] Last Admin: 11/03/23 10:50 Dose: 3 ml Documented By: EVARISTO Amiodarone HCl (Amiodarone Hcl 200 Mg Tablet) 200 mg PO DAILY [facility] Last Admin: 11/03/23 09:59 Dose: 200 mg Documented By: LIANNE Amlodipine Besylate (Amlodipine Besylate 10 Mg Tablet) 10 mg PO DAILY [facility]; Protocol Last Admin: 11/03/23 09:59 Dose: 10 mg Documented By: LIANNE Docusate Sodium (Docusate Sodium 100 Mg Capsule) 100 mg PO DAILY PRN PRN Reason: Constipation Fluoxetine HCl (Fluoxetine Hcl 20 Mg Capsule) 20 mg PO DAILY [facility] Last Admin: 11/03/23 09:59 Dose: 20 mg Documented By: LIANNE Furosemide (Furosemide 40 Mg/4 Ml Vial) 40 mg IVPUSH BID@0900,1800 [facility]; Protocol Last Admin: 11/03/23 09:59 Dose: 40 mg Documented By: LIANNE Hydralazine HCl (Hydralazine Hcl 25 Mg Tablet) 25 mg PO TID [facility]; Protocol Last Admin: 11/03/23 09:59 Dose: 25 mg Documented By: LIANNE Isosorbide Mononitrate (Isosorbide Mononitrate 30 Mg Tab.Er.24h) 30 mg PO DAILY [facility]; Protocol Last Admin: 11/03/23 09:58 Dose: 30 mg Documented By: LIANNE Melatonin (Melatonin 3 Mg Tablet) 3 mg PO BEDTIME PRN PRN Reason: Insomnia Memantine (Memantine Hcl 10 Mg Tablet) 10 mg PO BID [facility] Last Admin: 11/03/23 09:59 Dose: 10 mg Documented By: LIANNE Metoprolol Succinate (Metoprolol Succinate Er 25 Mg Tab.Er.24h) 25 mg PO DAILY [facility]; Protocol Last Admin: 11/03/23 09:59 Dose: 25 mg Documented By: LIANNE Nitroglycerin (Nitroglycerin 0.4 Mg Tab.Subl) 0.4 mg SUBLINGUAL Q5M PRN PRN Reason: chest pain Nystatin (Nystatin Powder 15 Gm Bottle) 1 appl TOPICAL BID [facility]; Protocol Last Admin: 11/03/23 10:02 Dose: 1 appl Documented By: LIANNE Ondansetron HCl (Ondansetron Hcl 4 Mg/2 Ml Vial) 4 mg IVPUSH Q8H PRN PRN Reason: Nausea and Vomiting Last Admin: 11/01/23 17:50 Dose: 4 mg Documented By: JOSS Pantoprazole Sodium (Pantoprazole Sodium 40 Mg/10 Ml Vial) 40 mg IVPUSH BID@0630,1630 [facility] Last Admin: 11/03/23 05:44 Dose: 40 mg Documented By: ANIBAL Pravastatin Sodium (Pravastatin Sodium 40 Mg Tablet) 40 mg PO BEDTIME [facility] Last Admin: 11/02/23 20:03 Dose: 40 mg Documented By: ANIBAL Sodium Chloride (0.9 % Sodium Chloride Flush 3 Ml Syringe) 3 ml IVFLUSH QSHIFT [facility] Last Admin: 11/03/23 09:59 Dose: 3 ml Documented By: SALMOD Labs 11/03/23 05:51 11/03/23 05:51 Labs: Laboratory Results - last 24 hr 11/01/23 11/03/23 10:56 05:51 MCV 89.7 MCH 28.9 MCHC 32.2 RDW 15.3 Plt Count 267 MPV 9.7 Absolute Nucleated RBC 0.000 Nucleated RBC % (auto) 0.0 Anion Gap 13 Estim Creat Clear Calc 27.8 Estimated GFR 27 Random Glucose 113 Calcium 8.2 L B-Natriuretic Peptide 2353 H Blood Type A Positive Antibody Screen NEGATIVE Crossmatch See Detail Assessment and Plan (1) ABLA (acute blood loss anemia): Status: Acute (2) Acute upper GI bleed: Status: Acute (3) COVID-19: Status: Acute Plan 78-year-old female with past medical history significant for coronary artery disease, COPD not on home O2 2 L, osteoporosis, hypertension, chronic CHF with EF 15-20% recently discharged from [facility] 10/12-10/16 for CHF and diuresed , atrial fib with RVR and acute kidney injury was discharged home on amiodarone, and Eliquis return back with 2 episodes of black stools yesterday associated with chronic lightheadedness patient is being admitted for acute symptomatic blood loss anemia . Acute symptomatic blood loss anemia likely due to acute upper GI bleed s/p 1 unit of packed RBC 11/01, 1 unit 11/02 Hold Eliquis and Fosamax, question need for continued Fosamax upon discharge continue IV Protonix 40 b.i.d. seen by GI - rec conservative management for now given covid + and underlying CAD, CHF. high cardiac risk per cardiology follow CBC probable acute copd exacerbation at baseline on 2L supplemental oxygen will give one dose of steroids and evaluate for response as pt has not improved significantly with diuresis and has wheezing continue breathing treatments acute on chronic Congestive heart failure with reduced EF EF 20-25% BNP still elevated cardiology following, plan to increase dose of lasix Covid 19 no significant respiratory symptoms prefers not to treat with remdesivir New onset atrial fibrillation diagnosed in September 2023 Status post recent cardioversion on previous admission, now in normal sinus rhythm continue metoprolol and amiodarone Hold Eliquis as above CKD3 creatinine up and down, higher on previous admission follow renal function closely with diuresis Coronary artery disease continue statins, beta-bernadette History of chronic intermittent chest pain, no chest pain at present, normal troponin, planned for outpatient ischemic workup Hypertension on multiple antihypertensives - continue norvasc, toprol xl, hydralazine increase dose of norvasc, hydralazine follow bp closely DVT prophylaxis with compression boots Full code requires ongoing inpatient stay for management of acute symptomatic anemia requiring blood transfusion and expert consultation, treatment of acute CHF, probable COPD exacerbation and close monitoring of respiratory status Quality Stroke Does the patient have a stroke diagnosis?: No VTE Prior VTE?: No VTE Risk Level:: Medical - moderate - high VTE Device Contraindication: N/A - Device Ordered VTE Drug Contraindication: Treatment Not Indicated
[2023-11-03] MEDS: methylPREDNISolone Sod Succ 125 MG/2 ML VIAL IVPUSH (15:51)
[2023-11-03] MEDS: hydrALAZINE HCl 50 MG TABLET PO ×2 (15:53→20:52)
[2023-11-03] MEDS: Pravastatin Sodium 40 MG TABLET PO (20:52)
[2023-11-04] VITALS (10 sets, daily range): BP systolic 135–181; BP diastolic 60–76; PULSE 66–78; RESP 16–20; TEMP 36.1–36.9; O2SAT 92–96
[2023-11-04] MEDS: 0.9 % Sodium Chloride Flush 3 ML SYRINGE IVFLUSH ×3 (01:52→16:12)
[2023-11-04] MEDS: Furosemide 40 MG/4 ML VIAL IVPUSH ×2 (01:52→08:25)
[2023-11-04] MEDS: Nystatin Powder 15 GM BOTTLE 1 APPL TOPICAL ×3 (01:54→21:00)
[2023-11-04] MEDS: Pantoprazole Sodium 40 MG/10 ML VIAL IVPUSH ×2 (06:05→16:08)
[2023-11-04 06:30] LABS: Hematocrit 28.2 % (37.0-47.0); Hemoglobin 9.1 g/dl (12.0-16.0); Mean Corpuscular HGB Conc 32.3 g/dl (31.0-35.0); Mean Corpuscular Hemoglobin 28.3 pg (27.0-33.0); Mean Corpuscular Volume 87.9 fL (80.0-98.0); Mean Platelet Volume 9.8 fL (9.4-12.3); Platelet Count 301 X10*3/uL (160-400); Red Blood Count 3.21 X10*6/uL (4.20-5.50); Red Cell Distribution Width 14.8 % (11.0-16.0); White Blood Count 6.1 X10*3/uL (4.8-10.8)
[2023-11-04] MEDS: Albuterol/Iprat 2.5/0.5MG 3 ML AMPUL.NEB INHALE ×3 (08:04→19:48)
[2023-11-04] MEDS: Metoprolol Succinate ER 25 MG TAB.ER.24H PO (08:25)
[2023-11-04] MEDS: hydrALAZINE HCl 50 MG TABLET PO ×3 (08:25→21:00)
[2023-11-04] MEDS: amLODIPine Besylate 10 MG TABLET PO (08:26)
[2023-11-04] MEDS: Memantine HCl 10 MG TABLET PO ×2 (08:26→21:03)
[2023-11-04] MEDS: Isosorbide Mononitrate 30 MG TAB.ER.24H PO (08:27)
[2023-11-04 08:44] LABS: Anion Gap 17 (12-20); Blood Urea Nitrogen 48 mg/dL (9-16); Calcium 8.3 mg/dL (8.4-10.2); Carbon Dioxide 29 mmol/L (22-29); Chloride 95 mmol/L (96-108); Creatinine Clr Calc Pharmacy 22.4; Estimated Glomerular Filt Rate 21; Glucose Random 210 mg/dL (60-115); Potassium 3.4 mmol/L (3.3-5.1); Sodium 138 mmol/L (135-145)
[2023-11-04] MEDS: Amiodarone HCL 200 MG TABLET PO (08:44)
[2023-11-04] MEDS: FLUoxetine HCl 20 MG CAPSULE PO (08:45)
[2023-11-04 09:34] LABS: B Type Natriuretic Peptide 3394 pg/mL (<100)
[2023-11-04] MEDS: methylPREDNISolone Sod Succ 40 MG/ML VIAL IVPUSH ×2 (10:15→20:37)
--- NOTE | 2023-11-04 10:30 | PM.PNCARD ---
Subjective Subjective Date of Service: 11/04/23 Interval history: She states she is feeling okay. Review of Systems Review of Systems Yes all other systems are reviewed and are negative Constitutional: Reports as per HPI and Reports no additional constitutional complaints Eyes: Reports as per HPI and Denies no additional eye complaints Denies system reviewed and no additional complaints, except as documented and Reports as per HPI Cardiovascular: Reports as per HPI, Reports no additional cardiovascular complaints, Denies acrocyanosis, Denies cool extremities, Denies chest pain, Denies leg edema, Denies lightheadedness, Denies palpitations and Denies dyspnea Respiratory: Reports as per HPI, Denies no additional respiratory complaints and Denies dyspnea Gastrointestinal: Reports as per HPI and Denies no additional gastrointestinal complaints Genitourinary: Reports as per HPI Musculoskeletal: Reports no additional musculoskeletal complaints and Reports as per HPI Skin/Breast: Reports system reviewed and no additional complaints, except as docu Reports system reviewed and no additional complaints, except as documented and Reports as per HPI Psychiatric: Reports no additional psychiatric complaints and Reports as per HPI Endocrine: Reports no additional endocrine complaints, Reports as per HPI and Denies palpitations Hematologic/Lymphatic: Reports no additional hematologic/lymphatic complaints and Reports as per HPI Allergic/Immunologic: Reports no additional allergic/immunologic complaints and Reports as per HPI Physical Exam Vital Signs: Last Vital Signs Temp 98.5 F 11/04/23 07:26 Pulse 71 11/04/23 08:04 Resp 18 11/04/23 08:04 BP 170/74 H 11/04/23 07:26 Pulse Ox 95 11/04/23 07:26 O2 Del Method Nasal Cannula 11/04/23 07:26 O2 Flow Rate 3 11/04/23 07:26 Oxygen Flow Rate 2 11/01/23 10:28 BMI result Body Mass Index 31.0 Const General: comfortable and no acute distress Orientation/consciousness: patient oriented x3 HEENT Other: Unremarkable Head: Yes normal to inspection Neck Neck: Yes normal visual inspection Chest Chest palpation & inspection: normal inspection of the chest Resp Auscultation: wheezes Cardio Palpation: normal PMI Heart sounds: S1 normal heart sound present, S2 normal heart sound present, no gallops, no murmurs and no rubs GI Palpation (GI): Soft to palpation Back/Spine/Pelvis Other: unremarkable Skin General skin exam: no rashes or lesions noted Neuro General: patient oriented x3 Extrem General: Yes normal to inspection Psych Mental Status: mental status grossly normal Objective Labs and Meds 11/04/23 06:01 11/04/23 08:12 Lab results: Laboratory Results - last 24 hr 11/04/23 11/04/23 06:01 08:12 WBC 6.1 RBC 3.21 L Hgb 9.1 L Hct 28.2 L MCV 87.9 MCH 28.3 MCHC 32.3 RDW 14.8 Plt Count 301 MPV 9.8 Absolute Nucleated RBC 0.000 Nucleated RBC % (auto) 0.0 Hold Purple Top SEE NOTE Sodium 138 Potassium 3.4 Chloride 95 L Carbon Dioxide 29 Anion Gap 17 BUN 48 H Creatinine 2.22 H Estim Creat Clear Calc 22.4 Estimated GFR 21 Random Glucose 210 H Calcium 8.3 L B-Natriuretic Peptide 3394 H Progress Note: A&P Assessment and plan (1) Acute upper GI bleed: Status: Acute (2) COVID-19: Status: Acute (3) Cardiomyopathy: Status: Acute (4) Acute systolic (congestive) heart failure: Status: Acute (5) Atherosclerotic cardiovascular disease: Status: Acute Plan Complicated clinical situation including older age, frailty, suspected coronary disease, cardiomyopathy with markedly diminished LVEF, probably some congestive heart failure, COVID, bleeding. Considering her comorbidities, she would be at high cardiac risk for any form of GI workup. She underwent IV diuresis considering the wheezing and elevated cardiac BNP but the renal function is getting worse. Similar to a recent presentation. May have to treat more for respiratory causes of her wheezing. Clinically, not appearing overtly volume overloaded. With regard to the anticoagulation, Eliquis is on hold because of anemia and suspected GI bleeding. This in turn leads to stroke risk but not much of a choice at this time. Continue amiodarone otherwise. Overall, guarded prognosis. Code status as well as goals of care will need to be addressed. Discussed with Bree Urbina. Time Spent With Patient Time: Total time managing care of this patient today ____ minutes. Progress Note: Quality Stroke Does the patient have a stroke diagnosis?: No Procedures Date of Service Date of Service: 11/04/23
--- NOTE | 2023-11-04 10:53 | P.PNIM_ITS ---
Subjective Subjective Date of Service: 11/04/23 Interval History: seen and examined this morning follow up for CHF, COVID, COPD exacerbation reports feeling better this morning no overnight events Review of Systems Review of Systems: Yes all other systems are reviewed and are negative Constitutional Constitutional: Denies chills and Denies fever(s) Cardiovascular Cardiovascular: Denies chest pain, Denies palpitations and Denies dyspnea Respiratory Respiratory: Reports cough and Denies dyspnea Endocrine Endocrine: Denies palpitations Physical Exam 2 Vital Signs: Vital Signs: Last Vital Signs Temp 98.5 F 11/04/23 07:26 Pulse 71 11/04/23 08:04 Resp 18 11/04/23 08:04 BP 170/74 H 11/04/23 07:26 Pulse Ox 95 11/04/23 07:26 O2 Del Method Nasal Cannula 11/04/23 07:26 O2 Flow Rate 3 11/04/23 07:26 Oxygen Flow Rate 2 11/01/23 10:28 BMI result Body Mass Index 31.0 Const: General: cooperative, comfortable, no acute distress, alert and awake Nutritional Appearance: overweight Orientation/consciousness: patient oriented x3 Resp: Other: expiratory wheeze - somewhat improved Effort & Inspection: normal respiratory effort, able to speak in complete sentences, no respiratory distress and no use of accessory muscles Cardio: Rate: regular rate GI: Inspection: No distended Palpation (GI): Soft to palpation and nontender Neuro: General: patient oriented x3, moves all extremities and CN's II-XI intact bilaterally Extrem: General: Yes no pedal edema Objective Data Active Medications Acetaminophen (Acetaminophen 325 Mg Tablet) 650 mg PO Q6H PRN PRN Reason: Pain, Mild (Pain Scale 1-3) Last Admin: 11/03/23 05:43 Dose: 650 mg Documented By: ANIBAL Albuterol Sulfate (Albuterol Sulfate 90 Mcg 8 Gm Inhaler) 2 puff INHALE Q4H PRN PRN Reason: for wheezing Albuterol/Ipratropium (Albuterol/Iprat 2.5/0.5mg 3 Ml Ampul.Neb) 3 ml INHALE RQ4H WHILE AWAKE [facility] Last Admin: 11/04/23 08:04 Dose: 3 ml Documented By: GEOFF Amiodarone HCl (Amiodarone Hcl 200 Mg Tablet) 200 mg PO DAILY [facility] Last Admin: 11/04/23 08:44 Dose: 200 mg Documented By: DWIGHT Amlodipine Besylate (Amlodipine Besylate 10 Mg Tablet) 10 mg PO DAILY [facility]; Protocol Last Admin: 11/04/23 08:26 Dose: 10 mg Documented By: DWIGHT Docusate Sodium (Docusate Sodium 100 Mg Capsule) 100 mg PO DAILY PRN PRN Reason: Constipation Fluoxetine HCl (Fluoxetine Hcl 20 Mg Capsule) 20 mg PO DAILY [facility] Last Admin: 11/04/23 08:45 Dose: 20 mg Documented By: DWIGHT Furosemide (Furosemide 40 Mg/4 Ml Vial) 40 mg IVPUSH DAILY [facility]; Protocol Hydralazine HCl (Hydralazine Hcl 50 Mg Tablet) 50 mg PO TID [facility]; Protocol Last Admin: 11/04/23 08:25 Dose: 50 mg Documented By: DWIGHT Isosorbide Mononitrate (Isosorbide Mononitrate 30 Mg Tab.Er.24h) 30 mg PO DAILY [facility]; Protocol Last Admin: 11/04/23 08:27 Dose: 30 mg Documented By: DWIGHT Melatonin (Melatonin 3 Mg Tablet) 3 mg PO BEDTIME PRN PRN Reason: Insomnia Memantine (Memantine Hcl 10 Mg Tablet) 10 mg PO BID [facility] Last Admin: 11/04/23 08:26 Dose: 10 mg Documented By: DWIGHT Methylprednisolone Sodium Succinate (Methylprednisolone Sod Succ 40 Mg/Ml Vial) 40 mg IVPUSH Q12H [facility] Metoprolol Succinate (Metoprolol Succinate Er 25 Mg Tab.Er.24h) 25 mg PO DAILY [facility]; Protocol Last Admin: 11/04/23 08:25 Dose: 25 mg Documented By: DWIGHT Nitroglycerin (Nitroglycerin 0.4 Mg Tab.Subl) 0.4 mg SUBLINGUAL Q5M PRN PRN Reason: chest pain Nystatin (Nystatin Powder 15 Gm Bottle) 1 appl TOPICAL BID [facility]; Protocol Last Admin: 11/04/23 08:45 Dose: 1 appl Documented By: DWIGHT Ondansetron HCl (Ondansetron Hcl 4 Mg/2 Ml Vial) 4 mg IVPUSH Q8H PRN PRN Reason: Nausea and Vomiting Last Admin: 11/01/23 17:50 Dose: 4 mg Documented By: JOSS Pantoprazole Sodium (Pantoprazole Sodium 40 Mg/10 Ml Vial) 40 mg IVPUSH BID@0630,1630 [facility] Last Admin: 11/04/23 06:05 Dose: 40 mg Documented By: ANIBAL Pravastatin Sodium (Pravastatin Sodium 40 Mg Tablet) 40 mg PO BEDTIME [facility] Last Admin: 11/03/23 20:52 Dose: 40 mg Documented By: ANIBAL Sodium Chloride (0.9 % Sodium Chloride Flush 3 Ml Syringe) 3 ml IVFLUSH QSHIFT [facility] Last Admin: 11/04/23 08:27 Dose: 3 ml Documented By: DARIELT Labs 11/04/23 06:01 11/04/23 08:12 Labs: Laboratory Results - last 24 hr 11/04/23 11/04/23 06:01 08:12 MCV 87.9 MCH 28.3 MCHC 32.3 RDW 14.8 Plt Count 301 MPV 9.8 Absolute Nucleated RBC 0.000 Nucleated RBC % (auto) 0.0 Hold Purple Top SEE NOTE Anion Gap 17 Estim Creat Clear Calc 22.4 Estimated GFR 21 Random Glucose 210 H Calcium 8.3 L B-Natriuretic Peptide 3394 H Assessment and Plan (1) ABLA (acute blood loss anemia): Status: Acute (2) Acute upper GI bleed: Status: Acute (3) COVID-19: Status: Acute (4) RADHA (acute kidney injury): Status: Acute (5) Cardiomyopathy: Status: Acute Plan 78-year-old female with past medical history significant for coronary artery disease, COPD not on home O2 2 L, osteoporosis, hypertension, chronic CHF with EF 15-20% recently discharged from [facility] 10/12-10/16 for CHF and diuresed , atrial fib with RVR and acute kidney injury was discharged home on amiodarone, and Eliquis return back with 2 episodes of black stools yesterday associated with chronic lightheadedness patient is being admitted for acute symptomatic blood loss anemia . Acute symptomatic blood loss anemia likely due to acute upper GI bleed s/p 1 unit of packed RBC 11/01, 1 unit 11/02 Hold Eliquis and Fosamax, question need for continued Fosamax upon discharge continue IV Protonix 40 b.i.d. seen by GI - rec conservative management for now given covid + and underlying CAD, CHF. high cardiac risk per cardiology follow CBC no overt bleeding noted acute copd exacerbation at baseline on 2L supplemental oxygen, currently on 3L continue IV steroids continue breathing treatments acute on chronic Congestive heart failure with reduced EF likely due to anemia, blood transfusions EF 20-25% BNP significantly elevated from baseline and still trending up Is&Os not accurate cardiology following, was treated with IV lasix initially, fluid status improving despite increase in BNP, now renal function now trending up will hold diuretics for now and follow renal function closely Covid 19 no clear onset of symptoms mild cough discussed with daughter/HCP prefers not to treat with remdesivir RADHA on CKD3 creatinine trending up follow renal function closely New onset atrial fibrillation diagnosed in September 2023 Status post recent cardioversion on previous admission, now in normal sinus rhythm continue metoprolol and amiodarone Hold Eliquis as above Coronary artery disease continue statins, beta-bernadette History of chronic intermittent chest pain, no chest pain at present, normal troponin, planned for outpatient ischemic workup Hypertension on multiple antihypertensives - continue norvasc, toprol xl, hydralazine norvasc, hydralazine increased follow bp closely DVT prophylaxis with compression boots Full code requires ongoing inpatient stay for management of acute symptomatic anemia requiring blood transfusion and expert consultation, treatment of acute CHF, probable COPD exacerbation and close monitoring of respiratory status long discussion with daughter/HCP Patricia at bedside Quality Stroke Does the patient have a stroke diagnosis?: No VTE Prior VTE?: No VTE Risk Level:: Medical - moderate - high VTE Device Contraindication: N/A - Device Ordered VTE Drug Contraindication: Treatment Not Indicated
[2023-11-04] MEDS: polyethylene glycoL 3350 17 GM POWD.PACK PO (21:00)
[2023-11-04] MEDS: Pravastatin Sodium 40 MG TABLET PO (21:02)
[2023-11-05] VITALS (12 sets, daily range): BP systolic 133–164; BP diastolic 58–71; PULSE 64–77; RESP 15–20; TEMP 36.1–36.8; O2SAT 92–100
[2023-11-05] MEDS: Pantoprazole Sodium 40 MG/10 ML VIAL IVPUSH ×2 (05:51→16:21)
[2023-11-05 06:42] LABS: Anion Gap 18 (12-20); Blood Urea Nitrogen 65 mg/dL (9-16); Calcium 8.1 mg/dL (8.4-10.2); Carbon Dioxide 28 mmol/L (22-29); Chloride 97 mmol/L (96-108); Creatinine Clr Calc Pharmacy 21.6; Estimated Glomerular Filt Rate 20; Glucose Random 152 mg/dL (60-115); Potassium 3.9 mmol/L (3.3-5.1); Sodium 139 mmol/L (135-145)
[2023-11-05] MEDS: Albuterol/Iprat 2.5/0.5MG 3 ML AMPUL.NEB INHALE ×3 (07:54→14:48)
[2023-11-05] MEDS: Memantine HCl 10 MG TABLET PO ×2 (08:09→21:20)
[2023-11-05] MEDS: hydrALAZINE HCl 50 MG TABLET PO ×3 (08:09→21:20)
[2023-11-05] MEDS: Isosorbide Mononitrate 30 MG TAB.ER.24H PO (08:09)
[2023-11-05] MEDS: Docusate Sodium 100 MG CAPSULE PO (08:09)
[2023-11-05] MEDS: Metoprolol Succinate ER 25 MG TAB.ER.24H PO (08:09)
[2023-11-05] MEDS: methylPREDNISolone Sod Succ 40 MG/ML VIAL IVPUSH ×2 (08:09→21:20)
[2023-11-05] MEDS: amLODIPine Besylate 10 MG TABLET PO (08:09)
[2023-11-05] MEDS: 0.9 % Sodium Chloride Flush 3 ML SYRINGE IVFLUSH ×2 (08:09→16:22)
[2023-11-05] MEDS: FLUoxetine HCl 20 MG CAPSULE PO (08:09)
[2023-11-05] MEDS: Amiodarone HCL 200 MG TABLET PO (08:09)
[2023-11-05] MEDS: Nystatin Powder 15 GM BOTTLE 1 APPL TOPICAL ×2 (08:16→21:26)
--- NOTE | 2023-11-05 10:17 | PM.PNCARD ---
Subjective Subjective Date of Service: 11/05/23 Interval history: Seen examined at bedside. Feeling better. Physical Exam Vital Signs: Last Vital Signs Temp 97.1 F 11/05/23 07:08 Pulse 66 11/05/23 07:56 Resp 18 11/05/23 07:56 BP 160/67 H 11/05/23 07:08 Pulse Ox 94 11/05/23 07:08 O2 Del Method Nasal Cannula 11/05/23 07:08 O2 Flow Rate 2 11/05/23 07:08 Oxygen Flow Rate 2 11/01/23 10:28 BMI result Body Mass Index 31.0 GENERAL APPEARANCE: in no acute distress. NECK: no carotid bruit, no jugular venous distention. SKIN: no suspicious lesions, warm and dry. HEART: no murmurs, regular rate and rhythm. LUNGS: clear to auscultation bilaterally. ABDOMEN: soft, nontender. EXTREMITIES: no edema. PERIPHERAL PULSES: equal. NEUROLOGIC: No gross deficits, AAO X 3 Objective Labs and Meds 11/04/23 06:01 11/05/23 06:03 Lab results: Laboratory Results - last 24 hr 11/05/23 06:03 Sodium 139 Potassium 3.9 Chloride 97 Carbon Dioxide 28 Anion Gap 18 BUN 65 H Creatinine 2.31 H Estim Creat Clear Calc 21.6 Estimated GFR 20 Random Glucose 152 H Calcium 8.1 L Progress Note: A&P Assessment and plan (1) ABLA (acute blood loss anemia): Status: Acute (2) Acute upper GI bleed: Status: Acute (3) COVID-19: Status: Acute (4) Cardiomyopathy: Status: Acute Plan 78-year-old female with severe cardiomyopathy who underwent cardioversion and presented with anemia due to blood loss. Cardioversion was done on 10/13/2023. She has been on amiodarone. Anticoagulation is on hold. She was diuresed and creatinine went up. I think her creatinine is close to her baseline currently as it has been fluctuating previously. She does not need IV diuretics currently as she appears to be quite euvolemic at this point. Monitor electrolytes closely. We will follow along with you. Thank you for allowing me to participate in the care of your patient. Please feel free to contact me if you have any questions. Time Spent With Patient Time: Total time managing care of this patient today ____ minutes. Progress Note: Quality Stroke Does the patient have a stroke diagnosis?: No Procedures Date of Service Date of Service: 11/05/23
--- NOTE | 2023-11-05 12:38 | MHC.CM.NN ---
Pt. not yet ready for DC, she is requiring tx for: actute anemia, acute CHF, COPD exacerbation. CM to follow and assist with DC plan.
--- NOTE | 2023-11-05 12:52 | HO.PM.IMPN ---
Subjective Subjective Date of Service: 11/06/23 Interval History: seen and examined this morning follow up for CHF, COVID, COPD exacerbation reports feeling better this morning no overnight events Review of Systems Review of Systems: Yes all other systems are reviewed and are negative Constitutional Constitutional: Denies chills and Denies fever(s) Cardiovascular Cardiovascular: Denies chest pain, Denies palpitations and Denies dyspnea Respiratory Respiratory: Reports cough and Denies dyspnea Endocrine Endocrine: Denies palpitations Physical Exam Vital Signs: Vital Signs: Last Vital Signs Temp 98.1 F 11/05/23 11:01 Pulse 69 11/05/23 11:20 Resp 18 11/05/23 11:20 BP 156/69 H 11/05/23 11:01 Pulse Ox 100 11/05/23 11:01 O2 Del Method Nasal Cannula 11/05/23 11:01 O2 Flow Rate 2 11/05/23 11:01 Oxygen Flow Rate 2 11/01/23 10:28 BMI result Body Mass Index 31.0 Appearing in no acute distress lung sounds are clear to auscultation heart regular rate rhythm, clear S1, S2 positive bowel sounds, abdomen is soft, nontender neuro patient is alert x3, no focal deficits Objective Data Active Medications Acetaminophen (Acetaminophen 325 Mg Tablet) 650 mg PO Q6H PRN PRN Reason: Pain, Mild (Pain Scale 1-3) Last Admin: 11/03/23 05:43 Dose: 650 mg Documented By: ANIBAL Albuterol Sulfate (Albuterol Sulfate 90 Mcg 8 Gm Inhaler) 2 puff INHALE Q4H PRN PRN Reason: for wheezing Albuterol/Ipratropium (Albuterol/Iprat 2.5/0.5mg 3 Ml Ampul.Neb) 3 ml INHALE RQ4H WHILE AWAKE [facility] Last Admin: 11/05/23 11:19 Dose: 3 ml Documented By: PATRICK Amiodarone HCl (Amiodarone Hcl 200 Mg Tablet) 200 mg PO DAILY [facility] Last Admin: 11/05/23 08:09 Dose: 200 mg Documented By: TIN Amlodipine Besylate (Amlodipine Besylate 10 Mg Tablet) 10 mg PO DAILY [facility]; Protocol Last Admin: 11/05/23 08:09 Dose: 10 mg Documented By: TIN Docusate Sodium (Docusate Sodium 100 Mg Capsule) 100 mg PO DAILY [facility] Last Admin: 11/05/23 08:09 Dose: 100 mg Documented By: TIN Fluoxetine HCl (Fluoxetine Hcl 20 Mg Capsule) 20 mg PO DAILY [facility] Last Admin: 11/05/23 08:09 Dose: 20 mg Documented By: TIN Hydralazine HCl (Hydralazine Hcl 50 Mg Tablet) 50 mg PO TID [facility]; Protocol Last Admin: 11/05/23 08:09 Dose: 50 mg Documented By: TIN Isosorbide Mononitrate (Isosorbide Mononitrate 30 Mg Tab.Er.24h) 30 mg PO DAILY [facility]; Protocol Last Admin: 11/05/23 08:09 Dose: 30 mg Documented By: TIN Melatonin (Melatonin 3 Mg Tablet) 3 mg PO BEDTIME PRN PRN Reason: Insomnia Memantine (Memantine Hcl 10 Mg Tablet) 10 mg PO BID [facility] Last Admin: 11/05/23 08:09 Dose: 10 mg Documented By: TIN Methylprednisolone Sodium Succinate (Methylprednisolone Sod Succ 40 Mg/Ml Vial) 40 mg IVPUSH Q12H [facility] Last Admin: 11/05/23 08:09 Dose: 40 mg Documented By: TIN Metoprolol Succinate (Metoprolol Succinate Er 25 Mg Tab.Er.24h) 25 mg PO DAILY [facility]; Protocol Last Admin: 11/05/23 08:09 Dose: 25 mg Documented By: TIN Nitroglycerin (Nitroglycerin 0.4 Mg Tab.Subl) 0.4 mg SUBLINGUAL Q5M PRN PRN Reason: chest pain Nystatin (Nystatin Powder 15 Gm Bottle) 1 appl TOPICAL BID [facility]; Protocol Last Admin: 11/05/23 08:16 Dose: 1 appl Documented By: TIN Ondansetron HCl (Ondansetron Hcl 4 Mg/2 Ml Vial) 4 mg IVPUSH Q8H PRN PRN Reason: Nausea and Vomiting Last Admin: 11/01/23 17:50 Dose: 4 mg Documented By: JOSS Pantoprazole Sodium (Pantoprazole Sodium 40 Mg/10 Ml Vial) 40 mg IVPUSH BID@0630,1630 [facility] Last Admin: 11/05/23 05:51 Dose: 40 mg Documented By: STUART Polyethylene Glycol (Polyethylene Glycol 3350 17 Gm Powd.Pack) 17 gm PO DAILY PRN PRN Reason: cosntipation Last Admin: 11/04/23 21:00 Dose: 17 gm Documented By: STUART Pravastatin Sodium (Pravastatin Sodium 40 Mg Tablet) 40 mg PO BEDTIME [facility] Last Admin: 11/04/23 21:02 Dose: 40 mg Documented By: STUART Sodium Chloride (0.9 % Sodium Chloride Flush 3 Ml Syringe) 3 ml IVFLUSH QSHIFT [facility] Last Admin: 11/05/23 08:09 Dose: 3 ml Documented By: FOGARTB Labs 11/05/23 13:55 11/06/23 07:59 Labs: Laboratory Results - last 24 hr 11/05/23 06:03 Anion Gap 18 Estim Creat Clear Calc 21.6 Estimated GFR 20 Random Glucose 152 H Calcium 8.1 L Assessment and Plan (1) ABLA (acute blood loss anemia): Status: Acute (2) Acute upper GI bleed: Status: Acute (3) COVID-19: Status: Acute (4) RADHA (acute kidney injury): Status: Acute (5) Cardiomyopathy: Status: Acute Plan 78-year-old female with past medical history significant for coronary artery disease, COPD not on home O2 2 L, osteoporosis, hypertension, chronic CHF with EF 15-20% recently discharged from [facility] 10/12-10/16 for CHF and diuresed , atrial fib with RVR and acute kidney injury was discharged home on amiodarone, and Eliquis return back with 2 episodes of black stools yesterday associated with chronic lightheadedness patient is being admitted for acute symptomatic blood loss anemia . Acute symptomatic blood loss anemia likely due to acute upper GI bleed s/p 1 unit of packed RBC 11/01, 1 unit 2 Hold Eliquis and Fosamax, question need for continued Fosamax upon discharge continue IV Protonix 40 b.i.d. seen by GI - rec conservative management for now given covid + and underlying CAD, CHF. high cardiac risk per cardiology Plan for EGD today acute copd exacerbation at baseline on 2L supplemental oxygen, currently on 3L continue IV steroids continue breathing treatments acute on chronic Congestive heart failure with reduced EF likely due to anemia, blood transfusions EF 20-25% BNP significantly elevated from baseline and still trending up Is&Os not accurate cardiology following, was treated with IV lasix initially, fluid status improving despite increase in BNP, now renal function now trending up will hold diuretics for now and follow renal function closely Covid 19 no clear onset of symptoms mild cough discussed with daughter/HCP prefers not to treat with remdesivir RADHA on CKD3 creatinine trending up follow renal function closely New onset atrial fibrillation diagnosed in September 2023 Status post recent cardioversion on previous admission, now in normal sinus rhythm continue metoprolol and amiodarone Hold Eliquis as above Coronary artery disease continue statins, beta-bernadette History of chronic intermittent chest pain, no chest pain at present, normal troponin, planned for outpatient ischemic workup Hypertension on multiple antihypertensives - continue norvasc, toprol xl, hydralazine norvasc, hydralazine increased follow bp closely DVT prophylaxis with compression boots Full code requires ongoing inpatient stay for management of acute symptomatic anemia requiring blood transfusion and expert consultation, treatment of acute CHF, probable COPD exacerbation and close monitoring of respiratory status. long discussion with daughter/HCP Patricia at bedside Quality Stroke Does the patient have a stroke diagnosis?: No VTE Prior VTE?: No VTE Risk Level:: Medical - moderate - high VTE Device Contraindication: N/A - Device Ordered VTE Drug Contraindication: Treatment Not Indicated
[2023-11-05 14:22] LABS: Hematocrit 29.2 % (37.0-47.0); Hemoglobin 9.5 g/dl (12.0-16.0); Mean Corpuscular HGB Conc 32.5 g/dl (31.0-35.0); Mean Corpuscular Hemoglobin 28.5 pg (27.0-33.0); Mean Corpuscular Volume 87.7 fL (80.0-98.0); Mean Platelet Volume 9.8 fL (9.4-12.3); Platelet Count 361 X10*3/uL (160-400); Red Blood Count 3.33 X10*6/uL (4.20-5.50); Red Cell Distribution Width 14.8 % (11.0-16.0)
--- NOTE | 2023-11-05 17:09 | MHC.SHP ---
Pre-Procedural Eval Section A - 24 Hr Update-Section A only Date of Service: 11/05/23 The patient is an INPATIENT: Yes Changes since office visit: Yes New Medical Problems, Yes Changes in Medication and Yes Patient answered all questions; No Cold of Flu in the past 2 weeks The patient has been examined within 24 hours of the surgical procedure. The History & Physical has been completed within 30 days and I have reviewed it.: Yes Section B - Complete if H&P > 30 days Chief Complaint: acute blood loss anemia Allergies: Allergies Allergy/AdvReac Type Severity Reaction Status Date / Time hydrochlorothiazide Allergy Intermediate FELT Verified 10/30/23 13:16 [From ZESTORETIC] FAINT, syncope lisinopril [LISINOPRIL] Allergy Intermediate Cough Verified 10/30/23 13:16 Plan Diagnosis/Plan: Unchanged I have reviewed the history and physical and performed a pertinent physical examination on my patient. No changes have occurred unless specified. Time Spent With Patient Time: Total time managing care of this patient today ____ minutes.
--- NOTE | 2023-11-05 18:09 | P.CONAN_ITS ---
HPI - Anesthesia Eval Consult details Narrative: GI bleed PMFSH Active Problems Active Problems: All Active Problems (Updated 11/01/23 @ 12:10 by Wendy Campoverde DO) ABLA (acute blood loss anemia) (Acute) Acute upper GI bleed (Acute) COVID-19 (Acute) Cardiomyopathy (Acute) RADHA (acute kidney injury) (Acute) Elevated troponin (Acute) Acute systolic (congestive) heart failure (Acute) Atrial flutter with rapid ventricular response (Acute) Atrial flutter (Acute) Chest pain (Acute) PVC (premature ventricular contraction) (Acute) Obesity (BMI 30-39.9) (Acute) Malignant neoplasm of upper-outer quadrant of left female breast (Acute) Essential hypertension (Acute) Restrictive lung disease (Acute) Atherosclerotic cardiovascular disease (Acute) COPD (chronic obstructive pulmonary disease) (Acute) Past Medical History Medical History Obesity (BMI 30-39.9) Cataract Wears dentures Use of cane as ambulatory aid Arthritis Low back pain High cholesterol HTN (hypertension) Environmental and seasonal allergies Restrictive lung disease Atherosclerotic cardiovascular disease COPD (chronic obstructive pulmonary disease) Family History Family History Father Family history of cancer Mother Colon cancer Alzheimer disease Family history of problems with anesthesia: No Surgical History Surgical History Hx of colonoscopy History of tubal ligation History of ankle surgery History of lumpectomy of left breast History of Problems with Anesthesia: No Social History Social History Household Members: Family Household Members Other:: SON LIVES IN NEXT APARTMENT Housing: Apartment 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 you 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: Yes (grandson age 13, son and daughter supportive) Do you presently have visiting nurse or other home services: No (IN PROCESS OF TRYING TO GET) Alcohol intake: current Alcohol intake frequency: does not drink Patient Tobacco Use Status: Former Tobacco user Quit Date: 20 years ago Tobacco use type: Cigarette service: No Meds Allergies Allergy/AdvReac Type Severity Reaction Status Date / Time hydrochlorothiazide Allergy Intermediate FELT Verified 10/30/23 13:16 [From ZESTORETIC] FAINT, syncope lisinopril [LISINOPRIL] Allergy Intermediate Cough Verified 10/30/23 13:16 Active Medications: Current Medications Acetaminophen (Acetaminophen 325 Mg Tablet) 650 mg PO Q6H PRN PRN Reason: Pain, Mild (Pain Scale 1-3) Last Admin: 11/03/23 05:43 Dose: 650 mg Albuterol Sulfate (Albuterol Sulfate 90 Mcg 8 Gm Inhaler) 2 puff INHALE Q4H PRN PRN Reason: for wheezing Albuterol/Ipratropium (Albuterol/Iprat 2.5/0.5mg 3 Ml Ampul.Neb) 3 ml INHALE RQ4H [facility]ILE [facility]WAKE [facility] Last Admin: 11/05/23 14:48 Dose: 3 ml Amiodarone HCl (Amiodarone Hcl 200 Mg Tablet) 200 mg PO DAILY [facility] Last Admin: 11/05/23 08:09 Dose: 200 mg Amlodipine Besylate (Amlodipine Besylate 10 Mg Tablet) 10 mg PO DAILY [facility]; Protocol Last Admin: 11/05/23 08:09 Dose: 10 mg Docusate Sodium (Docusate Sodium 100 Mg Capsule) 100 mg PO DAILY [facility] Last Admin: 11/05/23 08:09 Dose: 100 mg Fluoxetine HCl (Fluoxetine Hcl 20 Mg Capsule) 20 mg PO DAILY [facility] Last Admin: 11/05/23 08:09 Dose: 20 mg Hydralazine HCl (Hydralazine Hcl 50 Mg Tablet) 50 mg PO TID [facility]; Protocol Last Admin: 11/05/23 16:22 Dose: 50 mg Isosorbide Mononitrate (Isosorbide Mononitrate 30 Mg Tab.Er.24h) 30 mg PO DAILY [facility]; Protocol Last Admin: 11/05/23 08:09 Dose: 30 mg Melatonin (Melatonin 3 Mg Tablet) 3 mg PO BEDTIME PRN PRN Reason: Insomnia Memantine (Memantine Hcl 10 Mg Tablet) 10 mg PO BID [facility] Last Admin: 11/05/23 08:09 Dose: 10 mg Methylprednisolone Sodium Succinate (Methylprednisolone Sod Succ 40 Mg/Ml Vial) 40 mg IVPUSH Q12H [facility] Last Admin: 11/05/23 08:09 Dose: 40 mg Metoprolol Succinate (Metoprolol Succinate Er 25 Mg Tab.Er.24h) 25 mg PO DAILY [facility]; Protocol Last Admin: 11/05/23 08:09 Dose: 25 mg Nitroglycerin (Nitroglycerin 0.4 Mg Tab.Subl) 0.4 mg SUBLINGUAL Q5M PRN PRN Reason: chest pain Nystatin (Nystatin Powder 15 Gm Bottle) 1 appl TOPICAL BID [facility]; Protocol Last Admin: 11/05/23 08:16 Dose: 1 appl Ondansetron HCl (Ondansetron Hcl 4 Mg/2 Ml Vial) 4 mg IVPUSH Q8H PRN PRN Reason: Nausea and Vomiting Last Admin: 11/01/23 17:50 Dose: 4 mg Pantoprazole Sodium (Pantoprazole Sodium 40 Mg/10 Ml Vial) 40 mg IVPUSH BID@0630,1630 [facility] Last Admin: 11/05/23 16:21 Dose: 40 mg Polyethylene Glycol (Polyethylene Glycol 3350 17 Gm Powd.Pack) 17 gm PO DAILY PRN PRN Reason: cosntipation Last Admin: 11/04/23 21:00 Dose: 17 gm Pravastatin Sodium (Pravastatin Sodium 40 Mg Tablet) 40 mg PO BEDTIME [facility] Last Admin: 11/04/23 21:02 Dose: 40 mg Sodium Chloride (0.9 % Sodium Chloride Flush 3 Ml Syringe) 3 ml IVFLUSH QSHIFT [facility] Last Admin: 11/05/23 16:22 Dose: 3 ml Home Medications Medication Instructions Recorded Confirmed Last Taken Type memantine 10 mg tablet 10 mg PO BID 11/25/20 11/01/23 11/01/23 History alendronate 70 mg tablet 70 mg PO MO 12/04/22 11/01/23 11/01/23 History calcium carbonate 600 mg-vitamin 1 tab PO BID 10/12/23 11/01/23 11/01/23 History D3 5 mcg (200 unit) tablet fluoxetine 20 mg capsule 20 mg PO DAILY 10/12/23 11/01/23 11/01/23 History apixaban 2.5 mg tablet (Eliquis) 2.5 mg PO BID 11/01/23 11/01/23 11/01/23 History pravastatin 40 mg tablet 40 mg PO BEDTIME 11/01/23 11/01/23 11/01/23 History Exam Height,Weight and Vital Signs: Height 5 ft 6 in Weight 87.1 kg Last Vital Signs Temp 98.3 F 11/05/23 15:12 Pulse 77 11/05/23 15:12 Resp 16 11/05/23 15:12 BP 144/63 H 11/05/23 15:12 Pulse Ox 92 11/05/23 15:12 O2 Del Method Nasal Cannula 11/05/23 15:12 O2 Flow Rate 2 11/05/23 15:12 Oxygen Flow Rate 2 11/01/23 10:28 Pertinent Lab Results Pertinent Lab Results: Laboratory Tests 11/01/23 11/01/23 11/01/23 10:56 10:57 11:47 WBC 9.2 RBC 2.47 L D Hgb 7.2 L D Hct 22.8 L D MCV 92.3 MCH 29.1 MCHC 31.6 RDW 15.0 Plt Count 326 D MPV 9.3 L Immature Gran % (Auto) 1.2 H Neut % (Auto) 70.9 Lymph % (Auto) 16.3 L [place] % (Auto) 9.2 Eos % (Auto) 2.0 Baso % (Auto) 0.4 Lymph # (Auto) 1.5 [place] # (Auto) 0.8 Eos # (Auto) 0.2 Baso # (Auto) 0.0 Abs Immat Gran (auto) 0.11 H Absolute Neuts (auto) 6.5 Absolute Nucleated RBC 0.000 Nucleated RBC % (auto) 0.0 Hold Purple Top APTT 37.8 H Sodium 141 Potassium 3.8 Chloride 105 Carbon Dioxide 29 Anion Gap 11 L BUN 27 H Creatinine 1.54 H Estim Creat Clear Calc 32.4 Estimated GFR 32 Random Glucose 103 Calcium 9.1 Magnesium 2.0 Troponin I High Sens 10.4 D B-Natriuretic Peptide 2737 H Urine Color Urine Appearance Urine pH Ur Specific [place] Urine Protein Urine Glucose (UA) Urine Ketones Urine Blood Urine Nitrite Ur Leukocyte Esterase Urine RBC Urine WBC Ur Squamous Epith Cells Urine Bacteria Hyaline Casts Stool Occult Blood POSITIVE COVID-19 ([facility]DEN) Positive A COVID-19 Clin Com See Note Blood Type A Positive Antibody Screen NEGATIVE Crossmatch See Detail 11/01/23 11/01/23 11/02/23 13:09 20:33 06:24 WBC 10.9 H RBC 2.79 L Hgb 8.2 L 7.9 L Hct 26.0 L 25.5 L MCV 91.4 MCH 28.3 MCHC 31.0 RDW 15.1 Plt Count 281 MPV 9.7 Immature Gran % (Auto) Neut % (Auto) Lymph % (Auto) [place] % (Auto) Eos % (Auto) Baso % (Auto) Lymph # (Auto) [place] # (Auto) Eos # (Auto) Baso # (Auto) Abs Immat Gran (auto) Absolute Neuts (auto) Absolute Nucleated RBC 0.000 Nucleated RBC % (auto) 0.0 Hold Purple Top APTT Sodium 139 Potassium 4.2 Chloride 101 Carbon Dioxide 29 Anion Gap 13 BUN 26 H Creatinine 1.55 H Estim Creat Clear Calc 32.1 Estimated GFR 32 Random Glucose 119 H Calcium 8.6 Magnesium Troponin I High Sens B-Natriuretic Peptide Urine Color Yellow Urine Appearance Clear Urine pH 6.5 Ur Specific [place] 1.015 Urine Protein Negative Urine Glucose (UA) Negative Urine Ketones Negative Urine Blood Negative Urine Nitrite Negative Ur Leukocyte Esterase Negative Urine RBC 0-2 Urine WBC 0-5 Ur Squamous Epith Cells 0-2 Urine Bacteria None Seen Hyaline Casts 0-2 Stool Occult Blood COVID-19 ([facility]AYDEN) COVID-19 Clin Com Blood Type Antibody Screen Crossmatch 11/03/23 11/04/23 11/04/23 05:51 06:01 08:12 WBC 8.9 6.1 RBC 3.29 L 3.21 L Hgb 9.5 L D 9.1 L Hct 29.5 L 28.2 L MCV 89.7 87.9 MCH 28.9 28.3 MCHC 32.2 32.3 RDW 15.3 14.8 Plt Count 267 301 MPV 9.7 9.8 Immature Gran % (Auto) Neut % (Auto) Lymph % (Auto) [place] % (Auto) Eos % (Auto) Baso % (Auto) Lymph # (Auto) [place] # (Auto) Eos # (Auto) Baso # (Auto) Abs Immat Gran (auto) Absolute Neuts (auto) Absolute Nucleated RBC 0.000 0.000 Nucleated RBC % (auto) 0.0 0.0 Hold Purple Top SEE NOTE APTT Sodium 137 138 Potassium 3.4 3.4 Chloride 98 95 L Carbon Dioxide 29 29 Anion Gap 13 17 BUN 29 H 48 H Creatinine 1.79 H 2.22 H Estim Creat Clear Calc 27.8 22.4 Estimated GFR 27 21 Random Glucose 113 210 H Calcium 8.2 L 8.3 L Magnesium Troponin I High Sens B-Natriuretic Peptide 2353 H 3394 H Urine Color Urine Appearance Urine pH Ur Specific [place] Urine Protein Urine Glucose (UA) Urine Ketones Urine Blood Urine Nitrite Ur Leukocyte Esterase Urine RBC Urine WBC Ur Squamous Epith Cells Urine Bacteria Hyaline Casts Stool Occult Blood COVID-19 (KAYDEN) COVID-19 [place] Com Blood Type Antibody Screen Crossmatch 11/05/23 11/05/23 06:03 13:55 WBC 12.0 H RBC 3.33 L Hgb 9.5 L Hct 29.2 L MCV 87.7 MCH 28.5 MCHC 32.5 RDW 14.8 Plt Count 361 MPV 9.8 Immature Gran % (Auto) Neut % (Auto) Lymph % (Auto) [place] % (Auto) Eos % (Auto) Baso % (Auto) Lymph # (Auto) [place] # (Auto) Eos # (Auto) Baso # (Auto) Abs Immat Gran (auto) Absolute Neuts (auto) Absolute Nucleated RBC 0.000 Nucleated RBC % (auto) 0.0 Hold Purple Top APTT Sodium 139 Potassium 3.9 Chloride 97 Carbon Dioxide 28 Anion Gap 18 BUN 65 H Creatinine 2.31 H Estim Creat Clear Calc 21.6 Estimated GFR 20 Random Glucose 152 H Calcium 8.1 L Magnesium Troponin I High Sens B-Natriuretic Peptide Urine Color Urine Appearance Urine pH Ur Specific [place] Urine Protein Urine Glucose (UA) Urine Ketones Urine Blood Urine Nitrite Ur Leukocyte Esterase Urine RBC Urine WBC Ur Squamous Epith Cells Urine Bacteria Hyaline Casts Stool Occult Blood COVID-19 (KAYDEN) COVID-19 [place] Com Blood Type Antibody Screen Crossmatch Airway Mallampati Class: II TM Dist: >3cm Neck ROM: Full Denture: Upper Partial: Upper Loose/Missing/Broken Teeth: No Heart: RRR Lungs: CTA Assessment and Plan Final Anesthetic Review Family History of Problems with Anesthesia: No History of Problems with Anesthesia: No ASA Class: III Final Preanesthetic Review: No Changes in Pt Med Stat, Meds/Allgs Chart Reviewed, Consent Obtained/Reviewed and Anes Risks/Benef Reviewed Patient Risk: Intermediate Procedure Risk: Low Anesthetic Plan Anesthetic Plan: MAC: Disposition: Standard PACU
--- NOTE | 2023-11-05 20:34 | P.CONNP_ITS ---
History of Present Illness Reason for Consult Consult date: 11/05/23 Reason for consult: CKD/RADHA Chief Complaint Chief complaint: acute blood loss anemia History of Present Illness Narrative: 78-year-old female patient with past medical history significant for coronary artery disease, COPD on 2 L of oxygen, osteoporosis, hypertension, CHF with EF 15-20% recently discharged from [facility] from 10/12-10/16 REcently had RADHA which was resolving BAseline cr was 1.5 NOw at 2.2 Review of Systems Constitutional: Denies fever(s) and Denies weight loss Cardiovascular: Denies chest pain Respiratory: Denies cough and Denies hemoptysis Gastrointestinal: Denies abdominal pain, Denies diarrhea and Denies nausea Musculoskeletal: Denies back pain Denies focal weakness PMFSH Past Medical History Medical History Obesity (BMI 30-39.9) Cataract Wears dentures Use of cane as ambulatory aid Arthritis Low back pain High cholesterol HTN (hypertension) Environmental and seasonal allergies Restrictive lung disease Atherosclerotic cardiovascular disease COPD (chronic obstructive pulmonary disease) Family History Family History Father Family history of cancer Mother Colon cancer Alzheimer disease Surgical History Surgical History Hx of colonoscopy History of tubal ligation History of ankle surgery History of lumpectomy of left breast Social History Social History Household Members: Family Household Members Other:: SON LIVES IN NEXT APARTMENT Housing: Apartment Are you a primary acute care assistant to a significant other at home: Yes (grandson age 13, son and daughter supportive) Do you presently have visiting nurse or other home services: No (IN PROCESS OF TRYING TO GET) Alcohol intake: current Alcohol intake frequency: does not drink Patient Tobacco Use Status: Former Tobacco user Quit Date: 20 years ago Tobacco use type: Cigarette service: No Meds Allergies Allergy/AdvReac Type Severity Reaction Status Date / Time hydrochlorothiazide Allergy Intermediate FELT Verified 10/30/23 13:16 [From ZESTORETIC] FAINT, syncope lisinopril [LISINOPRIL] Allergy Intermediate Cough Verified 10/30/23 13:16 Active Medications: Current Medications Acetaminophen (Acetaminophen 325 Mg Tablet) 650 mg PO Q6H PRN PRN Reason: Pain, Mild (Pain Scale 1-3) Last Admin: 11/03/23 05:43 Dose: 650 mg Albuterol Sulfate (Albuterol Sulfate 90 Mcg 8 Gm Inhaler) 2 puff INHALE Q4H PRN PRN Reason: for wheezing Albuterol/Ipratropium (Albuterol/Iprat 2.5/0.5mg 3 Ml Ampul.Neb) 3 ml INHALE RQ4H WHILE AWAKE [facility] Last Admin: 11/05/23 20:15 Dose: Not Given Amiodarone HCl (Amiodarone Hcl 200 Mg Tablet) 200 mg PO DAILY [facility] Last Admin: 11/05/23 08:09 Dose: 200 mg Amlodipine Besylate (Amlodipine Besylate 10 Mg Tablet) 10 mg PO DAILY [facility]; Protocol Last Admin: 11/05/23 08:09 Dose: 10 mg Docusate Sodium (Docusate Sodium 100 Mg Capsule) 100 mg PO DAILY [facility] Last Admin: 11/05/23 08:09 Dose: 100 mg Fentanyl (Fentanyl Citrate/Pf 100 Mcg/2 Ml Vial) 25 mcg IVPUSH Q5M PRN; Protocol PRN Reason: Pain, Moderate(Pain Scale 4-6) Fluoxetine HCl (Fluoxetine Hcl 20 Mg Capsule) 20 mg PO DAILY [facility] Last Admin: 11/05/23 08:09 Dose: 20 mg Hydralazine HCl (Hydralazine Hcl 50 Mg Tablet) 50 mg PO TID [facility]; Protocol Last Admin: 11/05/23 16:22 Dose: 50 mg Hydromorphone HCl (Hydromorphone Hcl 0.5 Mg/0.5 Ml Syringe) 0.25 mg IVPUSH Q5M PRN; Protocol PRN Reason: Pain, Severe (Pain Scale 7-10) Isosorbide Mononitrate (Isosorbide Mononitrate 30 Mg Tab.Er.24h) 30 mg PO DAILY [facility]; Protocol Last Admin: 11/05/23 08:09 Dose: 30 mg Melatonin (Melatonin 3 Mg Tablet) 3 mg PO BEDTIME PRN PRN Reason: Insomnia Memantine (Memantine Hcl 10 Mg Tablet) 10 mg PO BID [facility] Last Admin: 11/05/23 08:09 Dose: 10 mg Methylprednisolone Sodium Succinate (Methylprednisolone Sod Succ 40 Mg/Ml Vial) 40 mg IVPUSH Q12H [facility] Last Admin: 11/05/23 08:09 Dose: 40 mg Metoprolol Succinate (Metoprolol Succinate Er 25 Mg Tab.Er.24h) 25 mg PO DAILY [facility]; Protocol Last Admin: 11/05/23 08:09 Dose: 25 mg Nitroglycerin (Nitroglycerin 0.4 Mg Tab.Subl) 0.4 mg SUBLINGUAL Q5M PRN PRN Reason: chest pain Nystatin (Nystatin Powder 15 Gm Bottle) 1 appl TOPICAL BID [facility]; Protocol Last Admin: 11/05/23 08:16 Dose: 1 appl Ondansetron HCl (Ondansetron Hcl 4 Mg/2 Ml Vial) 4 mg IVPUSH Q8H PRN PRN Reason: Nausea and Vomiting Last Admin: 11/01/23 17:50 Dose: 4 mg Pantoprazole Sodium (Pantoprazole Sodium 40 Mg/10 Ml Vial) 40 mg IVPUSH BID@0630,1630 [facility] Last Admin: 11/05/23 16:21 Dose: 40 mg Polyethylene Glycol (Polyethylene Glycol 3350 17 Gm Powd.Pack) 17 gm PO DAILY PRN PRN Reason: cosntipation Last Admin: 11/04/23 21:00 Dose: 17 gm Pravastatin Sodium (Pravastatin Sodium 40 Mg Tablet) 40 mg PO BEDTIME [facility] Last Admin: 11/04/23 21:02 Dose: 40 mg Sodium Chloride (0.9 % Sodium Chloride Flush 3 Ml Syringe) 3 ml IVFLUSH QSHIFT [facility] Last Admin: 11/05/23 16:22 Dose: 3 ml Home Medications Medication Instructions Recorded Confirmed Last Taken Type memantine 10 mg tablet 10 mg PO BID 11/25/20 11/01/23 11/01/23 History alendronate 70 mg tablet 70 mg PO MO 12/04/22 11/01/23 11/01/23 History calcium carbonate 600 mg-vitamin 1 tab PO BID 10/12/23 11/01/23 11/01/23 History D3 5 mcg (200 unit) tablet fluoxetine 20 mg capsule 20 mg PO DAILY 10/12/23 11/01/23 11/01/23 History apixaban 2.5 mg tablet (Eliquis) 2.5 mg PO BID 11/01/23 11/01/23 11/01/23 History pravastatin 40 mg tablet 40 mg PO BEDTIME 11/01/23 11/01/23 11/01/23 History Physical Exam Vital Signs: Last Vital Signs Temp 97 F 11/05/23 18:12 Pulse 71 11/05/23 18:12 Resp 18 11/05/23 18:12 BP 164/71 H 11/05/23 18:12 Pulse Ox 95 11/05/23 18:12 O2 Del Method Nasal Cannula 11/05/23 18:12 O2 Flow Rate 3 11/05/23 18:12 Oxygen Flow Rate 2 11/01/23 10:28 BMI result Body Mass Index 31.0 Awake. Comfortable. Neck is supple. Mucosa moist. Lungs bilateral scattered rhonchi. Heart S1-S2 heard no gallop. Abdomen soft. Extremities no edema. No involuntary movements. No myoclonus. Results Lab Results 11/05/23 13:55 11/05/23 06:03 Lab results: Chemistry 11/03/23 11/04/23 11/05/23 05:51 08:12 06:03 Sodium 137 138 139 Potassium 3.4 3.4 3.9 Carbon Dioxide 29 29 28 BUN 29 H 48 H 65 H Creatinine 1.79 H 2.22 H 2.31 H Calcium 8.2 L 8.3 L 8.1 L Hematology 11/03/23 11/04/23 11/05/23 05:51 06:01 13:55 WBC 8.9 6.1 12.0 H Hgb 9.5 L D 9.1 L 9.5 L Plt Count 267 301 361 Assessment and Plan (1) Acute upper GI bleed: Status: Acute (2) RADHA (acute kidney injury): Status: Acute Plan Elderly woman with RADHA superimposed on CKD RADHA due to hypoperfusion in a setting of acute blood loss and COVID 19 infection Suggest Optimize HCT Continue to avoid hypotension Keep I =O Volume status needs to be assessed daily Avoid nephrotoxic agents Supportive care Procedures Date of Service Date of Service: 11/05/23
--- NOTE | 2023-11-05 20:39 | W.PM.OPN ---
Operative Note Operative Note Date of Service: 11/05/23 Narrative: FLEXIBLE TRANSORAL UPPER GASTROINTESTINAL ENDOSCOPY Pre-op diagnosis: acute on chronic anemia, heme positive stools Post-op diagnosis: Retained food Endoscopist:Domingo Rosenbaum MD Anesthesia:?MAC Consent: Indications for the procedure and potential complications of bleeding, perforation, reaction to medications and missed diagnosis were discussed with the patient and informed consent was obtained. Instrument: Olympus GIF H 190 mid size upper endoscope Monitoring: Vital signs and clinical assessment, continuous EKG monitoring, Pulse oximetry, Carbon Dioxide monitoring and blood pressure monitoring were done throughout the procedure. Procedure: The patient was placed in the left lateral decubitis position and pre-procedure medications were administered and a bite block was placed. The endoscope was inserted into the mouth and advanced under direct vision to the third part of duodenum. A careful inspection was made as the upper endoscope was withdrawn including a retroflexed examination of the proximal stomach; Findings and interventions are described below. Findings: Larynx: Normal Esophagus: Tortuous esophagus with tertiary contractions without stricture or ring. GE junction at 35 cms. No esophagitis or Pantoja's. Stomach: Some retained food in the gastric fundus. Normal gastric mucosa without ulcers or erosions Grade 2 flap valve on retroflexed examination of the cardia. Duodenum: Normal bulb and descending duodenum Intervention: Biopsies as noted above Impression and Post Procedure Diagnosis: Endoscopy Findings: ESOPHAGUS: Tortuous esophagus with tertiary contractions without stricture or ring. GE junction at 35 cms. No esophagitis or Pantoja's. STOMACH: Some retained food in the gastric fundus. Normal gastric mucosa without ulcers or erosions DUODENUM: Normal No blood or potential source of bleeding seen in the UGI tract during EGD Black heme positive stools possibly from gastric or small bowel erosions which have healed on PPI. Plan: Continue IV PPI and change to PO Omeprazole 20 mg once daily. Resume a cardiac diet tonight Pt can be discharged home in the am since H & H has remained stable Repeat CBC in 7 to 10 days. If CBC remains stable, she can resume Eliquis and have her CBC monitored once a month.
[2023-11-05] MEDS: Pravastatin Sodium 40 MG TABLET PO (21:20)
[2023-11-06] MEDS: 0.9 % Sodium Chloride Flush 3 ML SYRINGE IVFLUSH ×2 (00:43→08:35)
[2023-11-06 03:03] VITALS: BP 145/65; PULSE 64; RESP 18; TEMP 36.3; O2SAT 97
[2023-11-06] MEDS: Pantoprazole Sodium 40 MG/10 ML VIAL IVPUSH (05:32)
[2023-11-06 07:42] VITALS: BP 134/66; PULSE 75; RESP 18; TEMP 36.4; O2SAT 92
[2023-11-06 08:23] VITALS: PULSE 75; RESP 18; O2SAT 98
[2023-11-06] MEDS: Albuterol/Iprat 2.5/0.5MG 3 ML AMPUL.NEB INHALE ×2 (08:23→11:47)
[2023-11-06] MEDS: amLODIPine Besylate 10 MG TABLET PO (08:34)
[2023-11-06] MEDS: hydrALAZINE HCl 50 MG TABLET PO (08:34)
[2023-11-06] MEDS: methylPREDNISolone Sod Succ 40 MG/ML VIAL IVPUSH (08:34)
[2023-11-06] MEDS: Docusate Sodium 100 MG CAPSULE PO (08:34)
[2023-11-06] MEDS: Memantine HCl 10 MG TABLET PO (08:34)
[2023-11-06] MEDS: Metoprolol Succinate ER 25 MG TAB.ER.24H PO (08:34)
[2023-11-06] MEDS: Isosorbide Mononitrate 30 MG TAB.ER.24H PO (08:35)
[2023-11-06] MEDS: Amiodarone HCL 200 MG TABLET PO (08:35)
[2023-11-06] MEDS: FLUoxetine HCl 20 MG CAPSULE PO (08:35)
[2023-11-06 09:03] LABS: Anion Gap 17 (12-20); Blood Urea Nitrogen 78 mg/dL (9-16); Calcium 8.3 mg/dL (8.4-10.2); Carbon Dioxide 30 mmol/L (22-29); Chloride 97 mmol/L (96-108); Creatinine Clr Calc Pharmacy 20.6; Estimated Glomerular Filt Rate 19; Glucose Random 156 mg/dL (60-115); Potassium 4.1 mmol/L (3.3-5.1); Sodium 140 mmol/L (135-145)
[2023-11-06 11:36] VITALS: BP 151/72; PULSE 63; RESP 18; TEMP 36.6; O2SAT 97
[2023-11-06 11:49] VITALS: PULSE 65; RESP 16; O2SAT 96
--- NOTE | 2023-11-06 12:10 | PM.DS ---
DS: Providers Provider Date of Service: 11/06/23 Date of admission: 11/01/23 15:28 Primary care physician: Brii West NP Consults: 11/01/23 12:14 Consult to Gastroenterology Stat Consulting Provider: Marine Rosenbaum Reason for consultation: upper GI bleed Has provider been notified: Yes 11/02/23 09:52 Consult to Cardiology Routine Consulting Provider: [facility] Reason for consultation: preop evaluation 11/05/23 07:51 Consult to Nephrology Routine Consulting Provider: [facility] Reason for consultation: radha on ckd DS: Diagnosis Discharge Diagnosis (1) ABLA (acute blood loss anemia): Status: Acute (2) Acute upper GI bleed: Status: Acute (3) COVID-19: Status: Acute (4) RADHA (acute kidney injury): Status: Acute (5) Cardiomyopathy: Status: Acute DS: Summary Hospital Course Hospital Course: History and physical as per admitting provider. 78-year-old female patient with past medical history significant for coronary artery disease, COPD on 2 L of oxygen, osteoporosis, hypertension, CHF with EF 15-20% recently discharged from [facility] from 10/12-10/16 for acute hypoxic respiratory failure secondary to acute systolic CHF was diuresed with IV Lasix and was placed on 2 L of home oxygen, patient was also diagnosed to have new onset atrial fibrillation with rapid ventricular response underwent cardioversion on 10/13/2023 was started on amiodarone and Eliquis, course was complicated by acute kidney injury possibly cardiorenal versus over-diuresis , patient since discharge continued to have chronic lightheadedness but yesterday noted to black stools she was evaluated by her primary care physician and had labs drawn that showed anemia therefore referred to [place] ED where hemoglobin was 7.2 with discharge hemoglobin of 10.4 on October 16, patient denies abdominal pain, no heartburn or acidity ,denies nausea, vomiting, no hematemesis, no hematuria , denies bright red blood per rectum, she complaints of intermittent chest pain lasting short duration patient is vague historian, troponin 10.4 , BNP 2737, significantly worsened from last BNP of 1 008, denies PND, no orthopnea, no worsening leg edema, in the ED patient treated with albuterol, IV Protonix, IV fluids and IV Lasix and now receiving blood transfusion and will be admitted to telemetry unit with a diagnosis of acute symptomatic anemia due to upper GI bleed. 78-year-old woman treated for acute symptomatic blood loss anemia, COPD exacerbation, acute on chronic congestive heart failure with reduced ejection fraction and COVID-19. She was treated with supplemental oxygen, IV steroids, scheduled DuoNebs, respiratory status improved significantly. In terms of her COVID-19 she had no clear symptoms just some mild cough. In terms of her heart failure she did receive a blood transfusion due to anemia and that may have likely exacerbated it but she was treated with IV Lasix and fluid status improved but renal function did worsen so diuretics were held and patient was given some fluid. Creatinine seems to have plateaued at 2.42 and plan is for her to follow-up with black oxide operator outpatient. In terms of the anemia she did have 1 unit of packed red blood cells transfused, her Eliquis was held she was treated with IV PPI. She had endoscopy on 11/05/2023 which showed tortuous esophagus with tertiary contractions without stricture or ring, no esophagitis or Pantoja's. Stomach had some retained food in the gastric fundus but normal gastric mucosa without ulcers or erosions, no blood or potential source of bleeding seen in the upper GI tract during EGD. Black heme-positive stools possibly from gastric or small bowel erosions. Plan is for patient to continue omeprazole 20 mg daily, check CBC in 7 days and if H&H stable may resume Eliquis. Monitor CBC monthly. Plan is to be discharged home with family Atrial fibrillation continue metoprolol and amiodarone. Eliquis on hold until CBC recheck Coronary artery disease. Continue statin and beta-bernadette Hypertension. Continue Toprol. Norvasc increased to 10 mg daily, hydralazine increased to 50 mg daily Time Attestation Discharge coordination time: Greater than 30 minutes Quality: Safe Use of Opioids Does Pt have an Active Cancer Diagnosis on the Problem List?: No Quality: Stroke Does the patient have a stroke diagnosis?: No Physical Exam Vital Signs: Vital Signs: Last Vital Signs Temp 97.8 F 11/06/23 11:36 Pulse 65 11/06/23 11:49 Resp 16 11/06/23 11:49 BP 151/72 H 11/06/23 11:36 Pulse Ox 97 11/06/23 11:36 O2 Del Method Nasal Cannula 11/06/23 11:36 O2 Flow Rate 2 11/06/23 11:36 Oxygen Flow Rate 2 11/05/23 18:12 BMI result Body Mass Index 31.0 DS: Data Data Completed and Pending Completed studies during hospitalization [Text1]: Procedures [facility] of Cardiac Rhythm, Single (10/12/23) Ultrasonography of Heart with Aorta, Transesophageal (10/12/23) Labs on day of discharge: Laboratory Results - last 24 hr 11/05/23 11/06/23 13:55 07:59 WBC 12.0 H RBC 3.33 L Hgb 9.5 L Hct 29.2 L MCV 87.7 MCH 28.5 MCHC 32.5 RDW 14.8 Plt Count 361 MPV 9.8 Absolute Nucleated RBC 0.000 Nucleated RBC % (auto) 0.0 Hold Purple Top SEE NOTE Sodium 140 Potassium 4.1 Chloride 97 Carbon Dioxide 30 H Anion Gap 17 BUN 78 H Creatinine 2.42 H Estim Creat Clear Calc 20.6 Estimated GFR 19 Random Glucose 156 H Calcium 8.3 L Discharge Plan Discharge Anticipated Discharge Date/Time: 11/06/23 10:14 Patient Disposition: Home, Self-Care Discharge Diagnosis: Acute symptomatic blood loss anemia Acute COPD exacerbation Acute on chronic congestive heart failure with reduced EF COVID-19 RADHA on CKD 3 Referrals: Benson Li MD [Physician] - 1 Week Brii West NP [Primary Care Provider] - 1 Week Discharge Medications: New amlodipine 10 mg Tablet 10 mg PO DAILY Qty: 30 0RF Protocol: Hold for SBP< HOLD for SBP < : 90 hydralazine 50 mg Tablet 50 mg PO TID Qty: 30 0RF Protocol: Hold for SBP< HOLD for SBP < : 90 Continued nitroglycerin 0.4 mg tablet, sublingual 0.4 mg sublingual Q5M PRN (Reason: chest pain) Qty: 14 2RF Rx Instructions: do not exceed 3 doses per episode amiodarone 200 mg tablet 200 mg PO DAILY Qty: 90 3RF furosemide [Lasix] 20 mg tablet 20 mg PO DAILY Qty: 90 3RF albuterol sulfate 90 mcg/actuation HFA aerosol inhaler 2 puff inhalation Q4-6H PRN (Reason: for wheezing) Qty: 8.5 3RF calcium carbonate-vitamin D3 600 mg-5 mcg (200 unit) tablet 1 tab PO BID fluoxetine 20 mg capsule 20 mg PO DAILY isosorbide mononitrate 30 mg Tablet Extended Release 24 Hr 30 mg PO DAILY Qty: 30 0RF Protocol: Hold for SBP< HOLD for SBP < : 90 pravastatin 40 mg tablet 40 mg PO BEDTIME memantine 10 mg tablet 10 mg PO BID alendronate 70 mg tablet 70 mg PO MO metoprolol succinate [Toprol XL] 25 mg tablet extended release 24 hr 25 mg PO DAILY Qty: 90 3RF Held Eliquis 2.5 mg Tablet 2.5 mg PO BID Hold Instructions: Resume on 11/13/23. check CBC, if stable HH may resume Discontinued amlodipine [Norvasc] 5 mg tablet 5 mg PO DAILY Qty: 90 3RF hydralazine 25 mg Tablet 25 mg PO TID Qty: 90 0RF Protocol: Hold for SBP< HOLD for SBP < : 90 Discharge Orders: Discharge Order (Routine); Ordered 11/06/23 Ordered By: Eleonora Robbins Diet: Advance to usual diet Activity on Discharge: As tolerated Stand Alone Forms: Patient Portal Discharge page Other Ambulatory Orders: Basic Metabolic Panel (Routine) Timeframe: 20231113 Facility: [facility] - Location: Laboratory Ordered By: Eleonora Robbins Complete Blood Count no Diff (Routine) Timeframe: 20231113 Facility: [facility] - Location: Laboratory Ordered By: Eleonora Robbins Complete Blood Count no Diff (Routine) Timeframe: 20231212 Facility: [facility] - Location: Laboratory Ordered By: Eleonora Robbins Care Plan Goals: Omeprazole 20 mg daily Hydralazine increased to 50 mg 3 times daily Amlodipine increased to 10 mg daily Check CBC in 7 days, if H&H remains stable may resume Eliquis Monitor CBC once a month Health Concerns: Acute symptomatic blood loss anemia Acute COPD exacerbation Acute on chronic congestive heart failure with reduced EF COVID-19 RADHA on CKD 3 Plan of Treatment: Follow-up with primary care provider as needed Follow-up with Nephrology outpatient for monitoring of kidney function Assessment: See discharge summary
--- NOTE | 2023-11-06 12:11 | P.PNNP_ITS ---
Subjective Subjective Date of Service: 11/06/23 Interval history: Events noted. All recent data reviewed. D/W hospitalist Physical Exam 2 Vital Signs: Vital Signs: Last Vital Signs Temp 97.8 F 11/06/23 11:36 Pulse 65 11/06/23 11:49 Resp 16 11/06/23 11:49 BP 151/72 H 11/06/23 11:36 Pulse Ox 97 11/06/23 11:36 O2 Del Method Nasal Cannula 11/06/23 11:36 O2 Flow Rate 2 11/06/23 11:36 Oxygen Flow Rate 2 11/05/23 18:12 BMI result Body Mass Index 31.0 Const: General: no acute distress Eyes: EOM: EOMs intact bilaterally Resp: Auscultation: diminished lung sounds Cardio: Jugular venous distension: no JVD GI: Palpation (GI): Soft to palpation Neuro: General: moves all extremities Objective Data Labs 11/05/23 13:55 11/06/23 07:59 Labs: Laboratory Results - last 24 hr 11/05/23 11/06/23 13:55 07:59 WBC 12.0 H RBC 3.33 L Hgb 9.5 L Hct 29.2 L MCV 87.7 MCH 28.5 MCHC 32.5 RDW 14.8 Plt Count 361 MPV 9.8 Absolute Nucleated RBC 0.000 Nucleated RBC % (auto) 0.0 Hold Purple Top SEE NOTE Sodium 140 Potassium 4.1 Chloride 97 Carbon Dioxide 30 H Anion Gap 17 BUN 78 H Creatinine 2.42 H Estim Creat Clear Calc 20.6 Estimated GFR 19 Random Glucose 156 H Calcium 8.3 L Procedures Date of Service Date of Service: 11/06/23 Assessment & Plan Assessment and plan (1) RADHA (acute kidney injury): Status: Acute Plan Acute Kidney Injury due to tubular injury No reason to suspect obstructive uropathy/GN/AIN Diuretics on hold. Serum creatinine not plateaued yet No indication for any renal replacement Continue current supportive care for now Labs AM; shall closely follow-up Progress Note: Quality Stroke Does the patient have a stroke diagnosis?: No
--- NOTE | 2023-11-06 13:20 | HO.POSTANES ---
Post Anesthesia Evaluation Post Anesthesia Evaluation Date of Service: 11/06/23 Vital Signs: Vital Signs Temp Pulse Resp BP Pulse Ox O2 Del Method O2 Flow Rate 11/06/23 11:49 65 16 11/06/23 11:36 97.8 F 63 18 151/72 H 97 Nasal Cannula 2 11/06/23 08:23 75 18 11/06/23 07:42 97.5 F 75 18 134/66 92 Nasal Cannula 3 11/06/23 03:03 97.4 F 64 18 145/65 H 97 Nasal Cannula 3 Anesthesia: Monitored Mental Status: Awake Pain Control: Satisfactory Nausea/Vomiting: None Hydration: Adequate Anesthesia-Related Issues: No Anes. Related Issues
--- NOTE | 2023-11-06 13:22 | MHC.CM.PN ---
Second IMM 11/06/23, Pt has been medically cleared for DC, she declines to go to [facility], [facility] accepted pt. Her daughter will bring her home and family will assist in her care.
--- NOTE | 2023-11-07 15:57 | P.F2F_ITS ---
Service Date Service Date: 11/07/23 Encounter Date of encounter: 11/07/23 Reasons for Services Signs and symptoms assessed: Acute symptomatic blood loss anemia Acute COPD exacerbation Acute on chronic congestive heart failure with reduced EF COVID-19 RADHA on CKD 3 Reason for detention: CV/CP assess and/or care Homebound: Leaving the home is medically contraindicated at this time without the asist of a device and/or another person due th the listed conditions above and below. Reason homebound: unsteady gait / fall risk Certification: Based on the above findings, I certify that this patient is confined to the home and needs intermittent detention care, physical therapy and/or speech therapy, or continues to need occupational therapy. The patient is under my care, and I have initiated the establishment of the plan of care. The patient will be followed by a physician who will periodically review the plan of care. Time Spent With Patient Time: Total time managing care of this patient today ____ minutes.
== END 2023-11-06 14:39 | disposition home health service (06) | DRG 377 ==
LOC: HO.ED 12:10 → HO.EDOVER 15:43 → HO.IMC 17:30
PROVIDERS: Internal Medicine Gastroenterology; Physician Assistant Medical; Admitting Provider Hospitalist; Emergency Provider Emergency Medicine; PCP Nurse Practitioner Family; Visit Provider Nurse Practitioner Acute Care
PROC: 0DJ08ZZ Inspection of Upper Intestinal Tract, Via Natural or Artificial Opening Endoscopic (ICD-10-PCS; CPT 43235; principal; 2023-11-05 17:00)
DX: K27.4 Chronic or unspecified peptic ulcer, site unspecified, with hemorrhage (principal); I50.23 Acute on chronic systolic (congestive) heart failure; U07.1 COVID-19; I13.0 Hypertensive heart and chronic kidney disease with heart failure and stage 1 through stage 4 chronic kidney disease, or unspecified chronic kidney disease; D62 Acute posthemorrhagic anemia; J44.1 Chronic obstructive pulmonary disease with (acute) exacerbation; I42.9 Cardiomyopathy, unspecified; N17.9 Acute kidney failure, unspecified; I25.10 Atherosclerotic heart disease of native coronary artery without angina pectoris; N18.30 Chronic kidney disease, stage 3 unspecified; D63.1 Anemia in chronic kidney disease; Z99.81 Dependence on supplemental oxygen; Z87.891 Personal history of nicotine dependence; Z79.01 Long term (current) use of anticoagulants; Z79.899 Other long term (current) drug therapy
CPT/HCPCS: 36415; 71045; 80048; 81001; 82272; 83735; 83880; 84484; 85014; 85018; 85025; 85027; 85730; 86850; 86900; 86901; 86920; 86923; 87635; 93005; 94640; 97162; 99285; C9113; J1940; J2405; J2704; J2920; J2930; J3010; P9016

== ENCOUNTER → 2023-11-01 10:37 | Outpatient (BNV) | payer MEDICARE, SELFPAY | PROVIDERS: Emergency Provider Emergency Medicine; Visit Provider Internal Medicine | DX: I10 Essential (primary) hypertension (principal); R94.30 Abnormal result of cardiovascular function study, unspecified | CPT/HCPCS: 93010 ==

== ENCOUNTER → 2023-11-01 15:28 | Outpatient (BNV) | payer MEDICARE, SELFPAY | PROVIDERS: Admitting Provider Hospitalist; Emergency Provider Emergency Medicine; Visit Provider Hospitalist | DX: D62 Acute posthemorrhagic anemia (principal); K92.2 Gastrointestinal hemorrhage, unspecified | CPT/HCPCS: 99223; 99232; 99233; 99238; G0180 ==

== ENCOUNTER → 2023-11-01 15:28 | Outpatient (BNV) | payer OTHER, SELFPAY | PROVIDERS: Admitting Provider Hospitalist; Emergency Provider Emergency Medicine; PCP Nurse Practitioner Family; Visit Provider Internal Medicine | DX: D62 Acute posthemorrhagic anemia (principal); K92.2 Gastrointestinal hemorrhage, unspecified; U07.1 COVID-19; I42.9 Cardiomyopathy, unspecified | CPT/HCPCS: 99223; 99232; 99233 ==

== ENCOUNTER → 2023-11-01 15:28 | Outpatient (BNV) | payer OTHER, SELFPAY | PROVIDERS: Admitting Provider Hospitalist; Emergency Provider Emergency Medicine; PCP Nurse Practitioner Family; Visit Provider Internal Medicine Nephrology | DX: K92.2 Gastrointestinal hemorrhage, unspecified (principal); N17.9 Acute kidney failure, unspecified; N18.9 Chronic kidney disease, unspecified | CPT/HCPCS: 99223; 99232 ==

== ENCOUNTER → 2023-11-01 15:28 | Outpatient (BNV) | payer OTHER, SELFPAY | PROVIDERS: Admitting Provider Hospitalist; Emergency Provider Emergency Medicine; PCP Nurse Practitioner Family; Visit Provider Internal Medicine Gastroenterology | DX: K92.2 Gastrointestinal hemorrhage, unspecified (principal); D62 Acute posthemorrhagic anemia; U07.1 COVID-19; R19.5 Other fecal abnormalities | CPT/HCPCS: 43239; 99223 ==

== ENCOUNTER 2023-11-12 14:50 | Outpatient (REF) | payer OTHER, SELFPAY ==
[2023-11-12 14:57] LABS: MANUAL DIFF FLAG NO
[2023-11-12 15:00] LABS: Basophils Percent Auto 0.2 % (0-2); Eosinophils Absolute Auto 0.4 X10*3/uL (0.0-0.4); Eosinophils Percent Auto 3.3 % (0-4); Hematocrit 35.2 % (37.0-47.0); Hemoglobin 11.5 g/dl (12.0-16.0); Imm Gran Abs Auto 0.16 X10*3/uL (0.00-0.03); Imm Gran Pct Auto 1.4 % (0.0-0.4); Lymphocytes Absolute Auto 1.7 X10*3/uL (1.2-4.9); Mean Corpuscular HGB Conc 32.7 g/dl (31.0-35.0); Mean Corpuscular Hemoglobin 28.2 pg (27.0-33.0); Mean Corpuscular Volume 86.3 fL (80.0-98.0); Mean Platelet Volume 9.3 fL (9.4-12.3); Monocytes Absolute Auto 1.3 X10*3/uL (0.1-1.2); Monocytes Percent Auto 11.4 % (2-11); Neutrophils Absolute Auto 7.7 x10*3/uL (2.0-8.3); Neutrophils Percent Auto 68.7 % (45-73); Platelet Count 395 X10*3/uL (160-400); Red Blood Count 4.08 X10*6/uL (4.20-5.50); Red Cell Distribution Width 14.7 % (11.0-16.0); White Blood Count 11.2 X10*3/uL (4.8-10.8)
== END 2023-11-12 14:51 | disposition home or self-care (01) ==
LOC: HO.HVNA 14:50
PROVIDERS: Visit Provider Nurse Practitioner Family
DX: D64.9 Anemia, unspecified (principal); U07.1 COVID-19
CPT/HCPCS: 36415; 85025

== ENCOUNTER → 2023-11-27 15:08 | Outpatient (REF) | payer OTHER, SELFPAY ==
--- NOTE | 2023-11-27 15:11 | CA_ITS ---
Transthoracic Echocardiogram Patient (Last, First, Middle): Marge Mcdowell H Gender: Female Date of : 1945 Age: 78 Procedure Date: 11/27/2023 Procedure Type: Transthoracic Echocardiogram Location: OP Height: 165.1 cm Weight: 85.28 kg BSA: 1.93 m2 Heart Rate: bpm BP: 118 / 60 mmHg Gift Officer: Referring MD: Gary Mathew MD Symptoms: I42.9 - Cardiomyopathy, unspecified Study Quality: Fair ECG Rhythm: Sinus Conclusions: - The left ventricular systolic function is moderately decreased. The calculated ejection fraction is 31% by biplane method. - The basal inferior and basal inferoseptal segments are akinetic. - There is moderate calcification of the aortic valve. - There is mild to moderate mitral valve regurgitation. - Mild pulmonary hypertension is present. Findings Left Ventricle Normal left ventricular cavity size. There is mildly increased left ventricular wall thickness. The left ventricular systolic function is moderately decreased. The calculated ejection fraction is 31% by biplane method. There is moderate global hypokinesis. Evidence suggests grade II (moderate) diastolic dysfunction. Wall Motion Rest Echo Findings The basal inferior and basal inferoseptal segments are akinetic. Right Ventricle Mildly increased right ventricular cavity size. There is normal right ventricular systolic function. Atria The left atrium is moderately dilated. The right atrium is normal in size. Aortic Valve There is moderate calcification of the aortic valve. There is no aortic valve stenosis. There is no aortic valve regurgitation. Mitral Valve There is mild mitral annular calcification. There is mild to moderate mitral valve regurgitation. There is no mitral valve stenosis. Pulmonic Valve The pulmonic valve is likely normal. Tricuspid Valve There is mild tricuspid valve regurgitation. Mild pulmonary hypertension is present. Great Vessels The asc aorta is normal in size. Venous The inferior vena cava is normal in size and collapses greater than 50% with inspiration. Pericardium/Pleural There is no evidence of pericardial effusion. Prior Study Comparison Changes noted compared to prior study dated: 10/12/2023. Improved LVEF. Measurements 2D Linear Measurements IVSd: 1.22 0.6-0.9/0.6-1.0 cm LVIDd: 5.25 3.9-5.3/4.2-5.9 cm LVIDd Index: 2.72 2.4-3.2/2.2-3.1 cm/m2 LVIDs: 4.29 2.0-3.6 cm LVPWd: 1.23 0.7-1.1 cm Ao Root: 2.90 2.1-3.5 cm LA Diam: 4.40 2.7-3.8/3.0-4.0 cm LAIDs Index: 2.28 1.5-2.3 cm/m2 LV Mass: 324.30 67-162/88-224 g LV Mass Index: 168.03 43-95/49-115 g/m2 LVOT Diam: 2.10 3.0+(-)1.3 cm 2D Systolic Function EF 4C: 32.90 >55% EF 2C: 25.20 >55% EF BiP: 31.30 >55% Mitral Valve MV Pk E: 1.10 MV PK A: 0.96 MV Decel Time: 136.00 E/A: 1.20 E'Lateral: 6.20 E'Medial: 3.70 E/E' Med: 29.70 E/E' Lat: 17.70 PHT: 40.00 MVA PHT: 5.50 Decel [place]: 8.08 MR Vol - PW Dopp: 43.60 MR VTI: 2.18 MR ERO: 20.00 MR Alias Vinny: 0.39 MR RAD: 0.70 Aortic Valve AoV Pk Vinny: 2.27 AoV Mn Vinny: 1.46 AoV VTI: 0.61 AoV Pk Grad: 21.00 Aov Mn Grad: 11.00 ROBERT Cont.VTI: 1.11 LVOT LVOT Pk Vinny: 0.73 LVOT Mn Vinny: 0.49 LVOT VTI: 0.20 LVOT Pk Grad: 2.00 LVOT Mn Grad: 1.00 LVOT Diam: 2.10 LVOT Area: 3.46 Diastolic Function MV Pk E: 1.10 MV Pk A: 0.96 E/A: 1.20 E'Medial: 3.70 E/E' Med: 29.70 E' Laterial: 6.20 E/E' Lat: 17.70 Right Ventricle TAPSE (mm): 26.00 TVS' Vinny: 9.00 Tricuspid Valve TR Pk Vinny: 3.17 TR Pk Grad: 40.00 RA Press: 3.00 RVSP: 43.00 Great Vessels Aorta Ao Root-2D: 2.90 2.0-3.7 cm Ao Asc: 2.70 2.1-3.4 cm Pulmonary Valve PV Pk Vinny: 1.26 Peak PV Grad: 6.00 Updated in Other Vendor System with Status of Final Gary Mathew MD electronically signed on 11/28/2023 8:36:59 AM with status of Final
== END ==
LOC: HO.CARD 15:08
PROVIDERS: PCP Nurse Practitioner Family; Visit Provider Internal Medicine
DX: I42.9 Cardiomyopathy, unspecified (principal)
CPT/HCPCS: 93306

== ENCOUNTER → 2023-11-27 15:11 | Outpatient (BNV) | payer OTHER, SELFPAY | PROVIDERS: PCP Nurse Practitioner Family; Visit Provider Internal Medicine | DX: I34.0 Nonrheumatic mitral (valve) insufficiency (principal); I35.8 Other nonrheumatic aortic valve disorders | CPT/HCPCS: 93306 ==

== ENCOUNTER 2023-11-28 14:05 | Outpatient (REF) | payer OTHER, SELFPAY ==
[2023-11-28 15:37] LABS: Hematocrit 31.7 % (37.0-47.0); Hemoglobin 10.1 g/dl (12.0-16.0); Mean Corpuscular HGB Conc 31.9 g/dl (31.0-35.0); Mean Corpuscular Hemoglobin 27.7 pg (27.0-33.0); Mean Corpuscular Volume 86.8 fL (80.0-98.0); Mean Platelet Volume 9.4 fL (9.4-12.3); Platelet Count 373 X10*3/uL (160-400); Red Blood Count 3.65 X10*6/uL (4.20-5.50); Red Cell Distribution Width 15.2 % (11.0-16.0); White Blood Count 9.3 X10*3/uL (4.8-10.8)
[2023-11-28 16:06] LABS: Anion Gap 13 (12-20); Blood Urea Nitrogen 20 mg/dL (9-16); Calcium 9.4 mg/dL (8.4-10.2); Carbon Dioxide 27 mmol/L (22-29); Chloride 105 mmol/L (96-108); Estimated Glomerular Filt Rate 39; Glucose Random 98 mg/dL (60-115); Potassium 4.8 mmol/L (3.3-5.1); Sodium 140 mmol/L (135-145)
[2023-11-28 16:08] LABS: B Type Natriuretic Peptide 1651 pg/mL (<100)
== END 2023-11-28 14:06 | disposition home or self-care (01) ==
LOC: HO.LAB 14:05
PROVIDERS: PCP Nurse Practitioner Family; Visit Provider Internal Medicine
DX: I50.22 Chronic systolic (congestive) heart failure (principal); N17.9 Acute kidney failure, unspecified; K92.2 Gastrointestinal hemorrhage, unspecified
CPT/HCPCS: 36415; 80048; 83880; 85027

== ENCOUNTER 2023-12-03 10:01 | Outpatient (AMB) | payer MEDICARE, SELFPAY ==
--- NOTE | 2023-12-03 10:03 | A.OFFVIS_ITS ---
Intake Vital Signs 12/03/23 10:05 Weight 179 lb 10.828 oz BP 127/68 Blood Pressure Location Rt brachial Pulse 90 Pulse Source Doppler Pulse Oximetry (%) 94 Oxygen Delivery Method Room Air Intake Visit Reasons: COPD Allergies hydrochlorothiazide [From ZESTORETIC] Allergy (Intermediate, Verified 12/03/23 10:11) FELT FAINT, syncope lisinopril [LISINOPRIL] Allergy (Intermediate, Verified 12/03/23 10:11) Cough Medication List - Last Reconciled 12/03/23 by Mini Martinez MD albuterol sulfate 90 mcg/actuation 2 puffs inhalation Q4-6H PRN alendronate 70 mg PO MO amiodarone 200 mg PO DAILY amlodipine 10 mg See Protocol PO DAILY apixaban (Eliquis) 2.5 mg PO BID 90 days calcium carbonate-vitamin D3 600 mg-5 mcg (200 unit) 1 tab PO BID fluoxetine 20 mg PO DAILY furosemide 40 mg PO DAILY hydralazine 50 mg See Protocol PO TID isosorbide mononitrate ER 30 mg See Protocol PO DAILY memantine 10 mg PO BID metoprolol succinate ER (Toprol XL) 25 mg PO DAILY nitroglycerin 0.4 mg sublingual Q5M PRN pravastatin 40 mg PO BEDTIME Do you need a note to return to daycare/school/sports/work: No HPI COPD HPI Details THIS 78 YEARS OLD VERY PLEASANT FEMALE BUT SOMEWHAT SLOW IN TALKING , WITH SOME MEMORY IMPAIRMENT. SHE IS HERE FOR FOLLOW-UP FOR THE COPD. SHE WAS SUPPOSED TO BE ON SYMBICORT 80-4.52 PUFFS B.I.D. AND ALBUTEROL HFA P.R.N.. HOWEVER TODAY SHE TELLS ME THAT SHE HAS ONLY 1 KIND OF INHALER, . THAT SHE USES NEEDED IN OCTOBER OF THIS YEAR SHE WAS SEEN IN THE EMERGENCY ROOM BECAUSE OF INCREASED SHORTNESS OF BREATH BUT SHE HAD EVIDENCE OF BLOOD LOSS WITH ANEMIA, PROBABLY SECONDARY TO ELIQUIS. THE DOSE OF ELIQUIS HAS BEEN REDUCED TO 2.5 MG B.I.D.. NO ACTIVE BLEEDING HAS BEEN FOUND. SHE REMAINS MORE SHORT OF BREATH ON WALKING, BUT DENIES COUGH OR WHEEZING. SHE DENIES CHEST PAIN.. LATEST HEMOGLOBIN IS 10 GM. [facility]LY [facility] Medical History (Updated 12/03/23 @ 10:31 by Mini Martinez MD) Hypoxemia Dyspnea on exertion Cardiomyopathy Obesity (BMI 30-39.9) Cataract Wears dentures Use of cane as ambulatory aid Arthritis Low back pain High cholesterol HTN (hypertension) Environmental and seasonal allergies Restrictive lung disease Atherosclerotic cardiovascular disease COPD (chronic obstructive pulmonary disease) Surgical History Hx of colonoscopy History of tubal ligation History of ankle surgery History of lumpectomy of left breast Family History Father Family history of cancer Mother Colon cancer Alzheimer disease Social History Household Members: Family Household Members Other:: SON LIVES IN NEXT APARTMENT Housing: Apartment 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: Yes (grandson age 13, son and daughter supportive) Do you presently have visiting nurse or other home services: No (IN PROCESS OF TRYING TO GET) Alcohol intake: current Alcohol intake frequency: does not drink Patient Tobacco Use Status: Former Tobacco user Quit Date: 20 years ago Tobacco use type: Cigarette service: No Review of Systems Const All systems reviewed & are unremarkable except as noted in HPI and below Eyes Reports no additional complaints ENT Reports no additional complaints Card Denies chest pain, Denies irregular heart rhythm and Denies leg edema Resp Reports as per HPI GI Reports no additional complaints Reports no additional complaints Musc Reports back pain (MILD) Skin/Breast Reports system reviewed and no additional complaints, except as documented Neuro Reports no additional complaints and Reports memory loss (MILD) Psych Reports no additional complaints and Reports memory loss (MILD) Endo Reports no additional complaints Physical Exam Vital Signs: Last Vital Signs Pulse 90 12/03/23 10:05 BP 127/68 12/03/23 10:05 Pulse Ox 94 12/03/23 10:05 Oxygen Delivery Method Room Air 12/03/23 10:05 Const Other: Moderately overweight General: comfortable, no acute distress, alert and awake Orientation/consciousness: patient oriented x3 HEENT Head: Yes normal to inspection General nose exam: No nasal polyps present and No nasal discharge present Face and sinus: Yes sinuses nontender Mouth: oropharynx normal Throat: Yes posterior oropharynx normal Eyes General: appearance normal, both eyes and all related structures Neck Neck: Yes normal visual inspection, Yes no lymphadenopathy, Yes trachea midline and Yes no JVD Thyroid: Thyroid normal Chest Chest palpation & inspection: normal inspection of the chest, normal palpation of entire chest wall and no tenderness Resp Other: Percussion note resonant, breath sounds are distant with prolonged expiratory phase. No wheezes rhonchi or crepitations are heard on auscultation. Cardio Palpation: normal PMI Rate: regular rate Rhythm: regular rhythm Heart sounds: no gallops and no murmurs GI Palpation (GI): Soft to palpation, nontender, No hepatosplenomegaly present and no masses Auscultation: normal bowel sounds Back/Spine/Pelvis Thoracic/Lumbar Spine: thoracic and lumbar spine normal to inspection and thoraco-lumbar ROM limited Skin General skin exam: no rashes or lesions noted Neuro General: patient oriented x3 and no focal motor deficits Cranial nerves: Yes CN's II-XII intact bilaterally Extrem General: Yes normal to inspection, Yes no clubbing, cyanosis or edema and Yes no calf tenderness Psych Appearance: grossly normal and well kempt Speech and movement: Normal speech and movement present Assessment & Plan Assessment & Plan (1) COPD (chronic obstructive pulmonary disease): Comment: PATIENT DOES HAVE MODERATELY SEVERE OBSTRUCTIVE AIRWAY DISORDER PER PREVIOUS SPIROMETRY. IT IS STAYING VERY STABLE. Code(s): J44.9 - Chronic obstructive pulmonary disease, unspecified Plan: TX : ADVISED TO USE SYMBICORT 80-4.5 2 PUFF B.I.D., USE ALBUTEROL HFA 2 PUFFS Q 4-6 HOURS ONLY P.R.N., *SON WOULD CALL US AND CONFIRMED THE NAMES OF INHALERS. (2) Dyspnea on exertion: Comment: ACCORDING TO THE SO SHE IS THE NOTICED TO GET SHORT OF BREATH MORE EASILY ON WALKING AROUND IN THE HOUSE. Code(s): R06.09 - Other forms of dyspnea Plan: I EXPLAINED THAT DYSPNEA ON EXERTION IS DUE TO COMBINATION OF COPD AND ALSO DUE TO CARDIAC DISEASE WELL MODERATE ANEMIA. SHE SHOULD USE ALBUTEROL P.R.N. ONLY IF THERE IS COUGH OR WHEEZING. (3) Hypoxemia: Comment: PATIENT IS CASE OF NOCTURNAL HYPOXEMIA AND ALSO EXERCISE INDUCED HYPOXEMIA. Code(s): R09.02 - Hypoxemia Plan: O2 2 L/MINUTE DURING SLEEP AT NIGHT. AND O2 2 L/MINUTE WITH THE PORTABLE UNIT DURING THE DAYTIME, FOR ANY PHYSICAL ACTIVITY ARE WHEN GOING OUTDOORS. Coding Level of Care Code Est Pt Level 3 (68993) Diagnoses COPD (chronic obstructive pulmonary disease) J44.9 Dyspnea on exertion R06.09 Hypoxemia R09.02
[2023-12-03 10:05] VITALS: BP 127/68; PULSE 90; O2SAT 94
== END 2023-12-03 10:24 | disposition home or self-care (01) ==
PROVIDERS: PCP Nurse Practitioner Family; Visit Provider Internal Medicine
DX: J44.9 Chronic obstructive pulmonary disease, unspecified (principal); R06.09 Other forms of dyspnea; R09.02 Hypoxemia
CPT/HCPCS: 99213

== ENCOUNTER → 2023-12-03 10:01 | Outpatient (BNVA) | payer MEDICARE, SELFPAY | PROVIDERS: PCP Nurse Practitioner Family; Visit Provider Internal Medicine | DX: J44.9 Chronic obstructive pulmonary disease, unspecified (principal); R06.09 Other forms of dyspnea; R09.02 Hypoxemia; N17.9 Acute kidney failure, unspecified | CPT/HCPCS: 99212 ==

== ENCOUNTER 2023-12-03 15:40 | Outpatient (AMB) | payer OTHER, SELFPAY ==
[2023-12-03 15:45] VITALS: BP 110/60; PULSE 98; O2SAT 92
--- NOTE | 2023-12-03 15:45 | HO.NEPHOV_ITS ---
HPI HPI Comments History of Present Illness Details Elderly woman with mild CKD admitted for dyspnea Initially she was vigourosly diuresed Serum creatinine increased promptly with diuresis without improvement in respiratory status LAsix was hled and with cautious hydration, creatinine improved marginally She has A.Flutter with RVR and underwent cardioversion She has COPD and is being followed by She was started on nasal O2 during this hospitalization 12/03/23 Recently hospitalized for Anemia Feels better today On Lasix 40 mg QD PFSH Medical History (Updated 12/03/23 @ 16:03 by Benson Li MD) Hypoxemia Dyspnea on exertion Cardiomyopathy Obesity (BMI 30-39.9) Cataract Wears dentures Use of cane as ambulatory aid Arthritis Low back pain High cholesterol HTN (hypertension) Environmental and seasonal allergies Restrictive lung disease Atherosclerotic cardiovascular disease COPD (chronic obstructive pulmonary disease) Surgical History Hx of colonoscopy History of tubal ligation History of ankle surgery History of lumpectomy of left breast Family History Father Family history of cancer Mother Colon cancer Alzheimer disease Social History Household Members: Family Household Members Other:: SON LIVES IN NEXT APARTMENT Housing: Apartment 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 a significant other at home: Yes (grandson age 13, son and daughter supportive) Do you presently have visiting nurse or other home services: No (IN PROCESS OF TRYING TO GET) Alcohol intake: current Alcohol intake frequency: does not drink Patient Tobacco Use Status: Former Tobacco user Quit Date: 20 years ago Tobacco use type: Cigarette service: No Vital Signs 12/03/23 15:45 Weight 180 lb BP 110/60 Blood Pressure Location Lt brachial Position Sitting Pulse 98 Pulse Source Pulse Oximeter Pulse Oximetry (%) 92 Oxygen Delivery Method Room Air Physical Exam Vital Signs: Last Vital Signs Pulse 98 12/03/23 15:45 BP 110/60 12/03/23 15:45 Pulse Ox 92 12/03/23 15:45 Oxygen Delivery Method Room Air 12/03/23 15:45 Awake. Comfortable. Neck is supple. Mucosa moist. Lungs bilateral scattered rhonchi. Heart S1-S2 heard no gallop. Abdomen soft. Extremities no edema. No involuntary movements. No myoclonus. Assessment & Plan Assessment & Plan (1) RAYMON (acute kidney injury): Code(s): N17.9 - Acute kidney failure, unspecified Plan Elderly woman with COPD and a.flutter s/p cardioversion sustained Raymon due to hypoperfusion from aggressive diuresis Clinically appears euvolemic today Currently on Lasix 40 mg QD Renal function is back to baseline : Cr 1.32 BP is acceptable Goal is to slow the progression of kidney disease Keep on low salt diet Continue to avoid nephrotoxins Anemia Multifactoria NO indication for Epogen yet Orders: Orders Basic Metabolic Panel 3 Months N18.9 - Chronic kidney disease, unspecified Complete Blood Count no Diff 3 Months N18.9 - Chronic kidney disease, unspecified Medications: Discontinued hydralazine Discontinued Reason: Doctor's Order 50 mg See Protocol PO TID 30 tabs 0RF Coding Level of Care Code Est Pt Level 4 (52663) Diagnoses RAYMON (acute kidney injury) N17.9 Results Reviewed Nephrology Results: Hgb 10.1 g/dl (12.0-16.0) L 11/28/23 WBC 9.3 X10*3/uL (4.8-10.8) 11/28/23 Plt Count 373 X10*3/uL (160-400) 11/28/23 Sodium 140 mmol/L (135-145) 11/28/23 Potassium 4.8 mmol/L (3.3-5.1) 11/28/23 Chloride 105 mmol/L (96-108) 11/28/23 Carbon Dioxide 27 mmol/L (22-29) 11/28/23 BUN 20 mg/dL (9-16) H 11/28/23 Creatinine 1.32 mg/dL (0.5-1.4) 11/28/23 Calcium 9.4 mg/dL (8.4-10.2) 11/28/23 Urine Protein Negative mg/dL (Neg-Trace) 11/01/23
== END 2023-12-03 16:07 | disposition home or self-care (01) ==
PROVIDERS: PCP Nurse Practitioner Family; Visit Provider Internal Medicine Hypertension Specialist
DX: N17.9 Acute kidney failure, unspecified (principal)
CPT/HCPCS: 99214

== ENCOUNTER 2023-12-06 13:52 | Outpatient (REF) | payer OTHER, SELFPAY ==
[2023-12-06 13:57] LABS: MANUAL DIFF FLAG NO
[2023-12-06 14:07] LABS: Basophils Percent Auto 0.4 % (0-2); Eosinophils Absolute Auto 0.3 X10*3/uL (0.0-0.4); Eosinophils Percent Auto 2.8 % (0-4); Hematocrit 34.2 % (37.0-47.0); Hemoglobin 11.3 g/dl (12.0-16.0); Imm Gran Abs Auto 0.09 X10*3/uL (0.00-0.03); Imm Gran Pct Auto 0.9 % (0.0-0.4); Lymphocytes Absolute Auto 2.2 X10*3/uL (1.2-4.9); Lymphocytes Percent Auto 21.9 % (20-40); Mean Corpuscular Volume 84.7 fL (80.0-98.0); Mean Platelet Volume 9.6 fL (9.4-12.3); Monocytes Absolute Auto 1.1 X10*3/uL (0.1-1.2); Neutrophils Absolute Auto 6.3 x10*3/uL (2.0-8.3); Platelet Count 468 X10*3/uL (160-400); Red Blood Count 4.04 X10*6/uL (4.20-5.50); Red Cell Distribution Width 15.1 % (11.0-16.0)
== END 2023-12-06 13:53 | disposition home or self-care (01) ==
LOC: HO.HVNA 13:52
PROVIDERS: Visit Provider Internal Medicine
DX: I48.91 Unspecified atrial fibrillation (principal); I13.0 Hypertensive heart and chronic kidney disease with heart failure and stage 1 through stage 4 chronic kidney disease, or unspecified chronic kidney disease; N18.9 Chronic kidney disease, unspecified
CPT/HCPCS: 36415; 85025

== ENCOUNTER 2023-12-28 09:48 | Inpatient (IN) | payer OTHER, SELFPAY ==
--- NOTE | ~2023-12-28 | XR_ITS ---
EXAMINATION: XR CHEST CLINICAL INFORMATION: Shortness of breath COMPARISON: Previous chest x-ray most recent October 2023 TECHNIQUE: Frontal view of the chest was obtained. FINDINGS: The cardiac and mediastinal contours are stable. There are coarse central bronchovascular markings questionable for airways disease versus mild pulmonary edema. Lungs are otherwise clear. No pleural effusion or pneumothorax. Degenerative changes of the spine and left shoulder. XR/XR chest 1V IMPRESSION: Increased central bronchovascular markings, question airways disease versus mild pulmonary edema.
--- NOTE | ~2023-12-28 | CT_ITS ---
EXAMINATION: CT CHEST WITHOUT CONTRAST CLINICAL INFORMATION: Shortness of breath COMPARISON: Previous chest x-ray most recent from earlier the same day and chest CT August 2022 TECHNIQUE: Multidetector volumetric CT imaging of the chest was done. Axial MIP volume rendering provided. Sagittal and coronal reformatted images were obtained. This CT examination was performed using dose optimization techniques as appropriate, variously including the following: *Automated exposure control *Adjustment of mA and/or kV according to patient size (this includes techniques or standardized protocols for targeted exams where dose is matched to indication/reason for exam; i.e. extremities or head) *Use of iterative reconstruction technique DLP: 314 mGy-cm FINDINGS: BATTERY TESTER: LUNGS: There is diffuse bronchial wall thickening, increased peribronchial attenuation and small peribronchial nodules suggestive of active airways disease. This is greatest in the left upper lobe. There is atelectasis or a small infiltrate in the lingula. No endobronchial or endotracheal lesion. MEDIASTINUM: Severe atherosclerotic disease. Normal heart size. Severe coronary artery calcification. No pericardial effusion. Small mediastinal lymph nodes. No enlarged lymph nodes. Severe calcification of the thoracic aorta. There is also aortic valve calcification. CORONARY ARTERY CALCIFICATION: Severe PLEURA: There is no pleural effusion. No pleural mass or thickening. AXILLA: There is an asymmetric density in the right lateral breast axial image 36 series 3 measuring 1 x 1.7 cm. This is not included in the [id number] on 2021 exam and cannot be compared. Correlation with physical exam and mammogram recommended. No other chest wall mass. No enlarged axillary lymph nodes. UPPER ABDOMEN: The left kidney is smaller than the right. There is fullness of the left adrenal gland. These findings are similar to previous exam. OSSEOUS STRUCTURES: T8 and T12 vertebral body compression fractures and increased thoracic kyphosis similar to the 2021 exam. Old left lateral rib fractures. No acute fracture. CT/CT chest wo IV con IMPRESSION: Diffuse airways disease and lingular atelectasis or small infiltrate. Severe atherosclerotic disease and coronary artery and aortic valve calcification. 1 x 1.7 cm asymmetric density in the right lateral breast. This is not be compared with old chest CT from 2021. Correlation with physical exam and mammogram recommended. Fleischner guidelines were followed.
[2023-12-28 10:07] VITALS: BP 154/45; PULSE 80; RESP 18; TEMP 36.9; O2SAT 94; BMI 28.6
--- NOTE | 2023-12-28 10:20 | PC.NURSE ---
history of chf/copd. patient wears 2-3L nasal cannula at baseline. family at bedside stating they checked her oxygen with their own pulse ox at home where it was reading low. compared with the oxygen levels in the ED - patient questioning if they read the HR in error. patient with even and unlabored respirations no obvious signs/symptoms of distress noted. IV established by EMS. labs drawn and sent
[2023-12-28 10:24] LABS: Basophils Absolute Auto 0.1 X10*3/uL (0.0-0.2); Basophils Percent Auto 0.3 % (0-2); Eosinophils Percent Auto 0.1 % (0-4); Hematocrit 31.9 % (37.0-47.0); Hemoglobin 10.6 g/dl (12.0-16.0); Imm Gran Abs Auto 0.18 X10*3/uL (0.00-0.03); Imm Gran Pct Auto 0.8 % (0.0-0.4); Lymphocytes Absolute Auto 1.3 X10*3/uL (1.2-4.9); Lymphocytes Percent Auto 5.5 % (20-40); MANUAL DIFF FLAG SCAN; Mean Corpuscular HGB Conc 33.2 g/dl (31.0-35.0); Mean Corpuscular Volume 84.2 fL (80.0-98.0); Mean Platelet Volume 9.1 fL (9.4-12.3); Monocytes Absolute Auto 2.1 X10*3/uL (0.1-1.2); Monocytes Percent Auto 9.1 % (2-11); Neutrophils Absolute Auto 19.5 x10*3/uL (2.0-8.3); Neutrophils Percent Auto 84.2 % (45-73); Platelet Count 373 X10*3/uL (160-400); Red Blood Count 3.79 X10*6/uL (4.20-5.50); Red Cell Distribution Width 15.3 % (11.0-16.0); SCAN SMEAR FLAG 1; White Blood Count 23.1 X10*3/uL (4.8-10.8)
[2023-12-28 10:37] LABS: INTERNATIONAL NORM RATIO 1.7 (0.9-1.1); Prothrombin Time 20.1 SEC (11.1-13.3)
--- NOTE | 2023-12-28 10:41 | ED_ITS ---
HPI - General Adult General Chief complaint: Dyspnea Stated complaint: COUGH AND SOB Time Seen by Provider: 12/28/23 10:04 Source: patient Mode of arrival: ambulatory Limitations: no limitations History of Present Illness HPI narrative: 78-year-old female history of COPD, hypertension, restrictive lung disease, CHF, a flutter on anticoagulation, presenting with fatigue, malaise, myalgias, productive cough, subjective chills. Denies sick contacts. Reports she just has not been feeling well. Patient uses nasal cannula 2 L as needed. Has been using it more frequently. Denies associated chest pain, nausea, vomiting, diarrhea, headache, vision changes, dizziness and weakness Related Data Home Medications ?Medication ?Instructions ?Recorded ?Confirmed memantine 10 mg tablet 10 mg PO BID 11/25/20 11/01/23 alendronate 70 mg tablet 70 mg PO MO 12/04/22 11/01/23 calcium carbonate 600 mg-vitamin 1 tab PO BID 10/12/23 11/01/23 D3 5 mcg (200 unit) tablet fluoxetine 20 mg capsule 20 mg PO DAILY 10/12/23 11/01/23 pravastatin 40 mg tablet 40 mg PO BEDTIME 11/01/23 11/01/23 Previous Rx's ?Medication ?Instructions ?Recorded nitroglycerin 0.4 mg sublingual 0.4 mg sublingual Q5M PRN chest 01/25/23 tablet pain #14 tabs metoprolol succinate 25 mg 25 mg PO DAILY #90 tabs 04/24/23 tablet,extended release 24 hr (Toprol XL) amiodarone 200 mg tablet 200 mg PO DAILY #90 tabs 10/30/23 albuterol sulfate 90 mcg/actuation 2 puff inhalation Q4-6H PRN for 11/07/23 aerosol inhaler wheezing #8.5 caps apixaban 2.5 mg tablet (Eliquis) 2.5 mg PO BID 90 days #180 tabs 11/15/23 amlodipine 10 mg tablet 10 mg PO DAILY #30 tabs 12/19/23 isosorbide mononitrate 30 mg 30 mg PO DAILY #30 tabs 12/19/23 tablet,extended release 24 hr furosemide 40 mg tablet 40 mg PO DAILY #90 tabs 12/25/23 Allergies Allergy/AdvReac Type Severity Reaction Status Date / Time hydrochlorothiazide Allergy Intermediate FELT Verified 12/28/23 10:08 [From ZESTORETIC] FAINT, syncope lisinopril [LISINOPRIL] Allergy Intermediate Cough Verified 12/28/23 10:08 Review of Systems 2 Review of Systems: Yes all other systems are reviewed and are negative [facility] Past Medical History Attestation statement: The following information was validated with the patient. Source: old records reviewed and nursing notes reviewed Medical History Hypoxemia Dyspnea on exertion Cardiomyopathy Obesity (BMI 30-39.9) Cataract Wears dentures Use of cane as ambulatory aid Arthritis Low back pain High cholesterol HTN (hypertension) Environmental and seasonal allergies Restrictive lung disease Atherosclerotic cardiovascular disease COPD (chronic obstructive pulmonary disease) Surgical History Hx of colonoscopy History of tubal ligation History of ankle surgery History of lumpectomy of left breast Family History Family History Father Family history of cancer Mother Colon cancer Alzheimer disease Social History Social History Household Members: Family Household Members Other:: SON LIVES IN NEXT APARTMENT Housing: Apartment Are you a primary date night caregiver to a significant other at home: Yes (grandson age 13, son and daughter supportive) Do you presently have visiting nurse or other home services: No (IN PROCESS OF TRYING TO GET) Alcohol intake: current Alcohol intake frequency: does not drink Patient Tobacco Use Status: Former Tobacco user Quit Date: 20 years ago Tobacco use type: Cigarette Advance Directives: Yes Advance Directives on File: Yes Advance Directives Date on File: 10/17/23 service: No Physical Exam ED Vital Signs: Vital Signs - 24 hr 12/28/23 10:07 12/28/23 11:35 12/28/23 12:09 Temperature 98.5 F 99.4 F Pulse Rate 80 82 87 Respiratory Rate 18 20 22 H Blood Pressure 154/45 H 133/50 L Pulse Oximetry 94 93 Oxygen Delivery Method Nasal Cannula Nasal Cannula Oxygen Flow Rate 2 12/28/23 12:09 12/28/23 14:02 Temperature 98.7 F Pulse Rate 81 87 Respiratory Rate 18 22 H Blood Pressure 143/52 H 129/58 L Pulse Oximetry 94 93 Oxygen Delivery Method Nasal Cannula Nasal Cannula Oxygen Flow Rate 2 BMI result Body Mass Index 28.6 vss Appearance: Alert.? Oriented X3.? No acute distress.? Head: Normocephalic, atraumatic, no step-offs or deformities Eyes: Pupils equal, round and reactive to light.? CVS: Normal heart rate and rhythm.? Pulses normal.? Respiratory: + mod respiratory distress.? Breath sounds w/ wheezing and crackle b/l.? Abdomen: Soft and nontender.? Skin: Skin warm and dry.? Normal skin color.? Normal skin turgor.? Extremities: No lower extremity edema.? No calf ttp. 5/5 strength to bilateral upper and lower extremities Back: No midline tenderness, no C-spine tenderness, full range of motion, no CVA tenderness bilaterally Neuro: Oriented X 3.? No motor deficit.? No sensory deficit. CN 2-12 intact Course Reevaluation(s) Reevaluation #1: CBC with leukocytosis 23.1 and left shift. Chemistry potassium 3.2 will give oral potassium at this time. BUN and creatinine elevated however this appears to be chronic and not an acute finding. Patient's BNP 998. Will hold on fluids at this time. Flu, COVID, RSV negative. CXR pending Time: 11:03 Reevaluation #2: X-ray was down for awhile however resolved showing increased central bronchovascular markings question airway disease versus mild pulmonary edema. D-dimer negative. Respiratory at bedside with patient earlier again wheezing, crackles, will order Solu-Medrol at this time. CT scan still pending. Plan is hospital admission. Time: 14:50 Reevaluation #3: CT chest diffuse airway disease and lingular atelectasis or small infiltrate I am concerned for infiltrate pneumonia as patient's symptoms have been ongoing for a week and has productive cough with white count. 1 x 1.5 cm asymmetric density in the right lateral breast. Will inform patient of this Time: 15:56 Medications Administered Discontinued Medications Generic Name Dose Route Start Last Admin Trade Name Freq PRN Reason Stop Dose Admin Albuterol Sulfate 5 mg/ 0 mg 12/28/23 12:02 12/28/23 12:07 Albuterol/Ipratropium 3 ml INHALE 12/28/23 12:03 5 each ONCE ONE Administration Ceftriaxone Sodium 1 gm/ 50 mls @ 100 mls/hr 12/28/23 10:28 12/28/23 12:10 Sodium Chloride IV 12/28/23 10:57 Infused ONCE ONE Infusion Methylprednisolone Sodium Succinate 125 mg 12/28/23 14:49 12/28/23 15:13 Methylprednisolone Sod Succ 125 Mg/2 Ml Vial IVPUSH 12/28/23 14:50 125 mg ONCE ONE Administration Potassium Chloride 20 meq 12/28/23 11:02 12/28/23 11:29 Potassium Chloride Er 20 Meq Tab.Er.Prt PO 12/28/23 11:03 20 meq ONCE ONE Administration Medical Decision Making Medical Decision Making [facility] Narrative: 1031 78 yo f present w/ productive cough and sob X 1 week PE-crackles and wheezing hx and pe concerning for pna vs bronchitis. Unlikely acs, pe, ards . Other differentials include chronic lung disease. Plan- labs, ua, cxr Sepsis alert paged overhead. Ceftriaxone ordered. Will wait on fluids as patient has hx decreased EF on US as noted on 11/27/2023 Differential Diagnosis Differential Diagnoses: The differential diagnosis associated with the presentation includes hx and pe concerning for pna vs bronchitis. Unlikely acs, pe, ards . Other differentials include chronic lung disease. Admission/Observation Consideration of admission/observation: Escalation of care including admission/observation considered Lab Data [facility] Lab Attestation statement: I reviewed the patient's lab results. 12/28/23 10:17 12/28/23 10:17 Labs: Lab Results 12/28/23 12/28/23 12/28/23 Range/Units 10:16 10:17 11:08 WBC 23.1 H (4.8-10.8) X10*3/uL RBC 3.79 L (4.20-5.50) X10*6/uL Hgb 10.6 L (12.0-16.0) g/dl Hct 31.9 L (37.0-47.0) % MCV 84.2 (80.0-98.0) fL MCH 28.0 (27.0-33.0) pg MCHC 33.2 (31.0-35.0) g/dl RDW 15.3 (11.0-16.0) % Plt Count 373 (160-400) X10*3/uL MPV 9.1 L (9.4-12.3) fL Immature Gran % (Auto) 0.8 H (0.0-0.4) % Neut % (Auto) 84.2 H (45-73) % Lymph % (Auto) 5.5 L (20-40) % [place] % (Auto) 9.1 (2-11) % Eos % (Auto) 0.1 (0-4) % Baso % (Auto) 0.3 (0-2) % Lymph # (Auto) 1.3 (1.2-4.9) X10*3/uL [place] # (Auto) 2.1 H (0.1-1.2) X10*3/uL Eos # (Auto) 0.0 (0.0-0.4) X10*3/uL Baso # (Auto) 0.1 (0.0-0.2) X10*3/uL Abs Immat Gran (auto) 0.18 H (0.00-0.03) X10*3/uL Absolute Neuts (auto) 19.5 H (2.0-8.3) x10*3/uL Absolute Nucleated RBC 0.000 (0.0-0.012) X10*3/uL Nucleated RBC % (auto) 0.0 (0.0-0.2) /100WBC Smear Tech's Comments VERIFIED PT 20.1 H D (11.1-13.3) SEC INR 1.7 H (0.9-1.1) D-Dimer High Sensitivty 163 NG/ML Sodium 137 (135-145) mmol/L Potassium 3.2 L D (3.3-5.1) mmol/L Chloride 96 (96-108) mmol/L Carbon Dioxide 28 (22-29) mmol/L Anion Gap 16 (12-20) BUN 29 H (9-16) mg/dL Creatinine 1.60 H (0.5-1.4) mg/dL Estim Creat Clear Calc 30.0 Estimated GFR 31 Random Glucose 130 H (60-115) mg/dL Lactic Acid 1.2 (0.5-2.0) mmol/L Calcium 9.4 (8.4-10.2) mg/dL Magnesium 2.3 (1.6-2.6) mg/dL Total Bilirubin 0.9 (0.0-1.0) mg/dL AST 20 (5-31) U/L ALT 15 (0-31) U/L Alkaline Phosphatase 94 (39-117) U/L Troponin I High Sens 13.0 (<3.5-17.0) ng/L B-Natriuretic Peptide 998 H (<100) pg/mL Total Protein 8.6 H (6.5-8.0) g/dL Albumin 3.5 (3.5-5.0) g/dL Lipase 25 (8-78) U/L Influenza Type A (PCR) NEGATIVE (Negative) Influenza Type B (PCR) NEGATIVE (Negative) RSV RNA Qual (PCR) NEGATIVE (Negative) SARS-CoV-2 RNA (RT-PCR) NEGATIVE (Negative) Independent Interpretation I performed an independent interpretation of an: Plain X-Ray ( XR/XR chest 1V IMPRESSION: Increased central bronchovascular markings, question airways disease versus mild pulmonary edema. ) Radiology Impression Discussion of test interpretation with radiology: I have reviewed the radiologist's reading. External Record Review External record reviewed: Inpatient record, Office record, Outpatient record, Prior outpatient labs, Prior outpatient radiology, Primary care record and Outside ED record Chronic Conditions Patient?s care impacted by: Hypertension and Other (ckd, aflutter, pvc, copd ) Critical Care Time Critical Care Time Critical Care Time: Yes Total Critical Care Time: 35 Attestation: I attest to this time spent taking care of the patient, obtaining history, physical, reviewing labs, imaging, speaking to my attending, speaking to specialist. Discharge Plan Discharge Clinical Impression: COPD (chronic obstructive pulmonary disease), Pneumonia, Breast mass, right Patient Disposition: Admitted As Inpatient Print Language: Kiswahili
[2023-12-28 10:53] LABS: Alanine Aminotransferase 15 U/L (0-31); Albumin Level 3.5 g/dL (3.5-5.0); Alkaline Phosphatase 94 U/L (39-117); Anion Gap 16 (12-20); Aspartate Amino Transferase 20 U/L (5-31); Bilirubin Total 0.9 mg/dL (0.0-1.0); Blood Urea Nitrogen 29 mg/dL (9-16); Calcium 9.4 mg/dL (8.4-10.2); Carbon Dioxide 28 mmol/L (22-29); Chloride 96 mmol/L (96-108); Estimated Glomerular Filt Rate 31; Glucose Random 130 mg/dL (60-115); Lipase 25 U/L (8-78); Magnesium 2.3 mg/dL (1.6-2.6); Potassium 3.2 mmol/L (3.3-5.1); Sodium 137 mmol/L (135-145); Total Protein 8.6 g/dL (6.5-8.0)
[2023-12-28 10:57] LABS: B Type Natriuretic Peptide 998 pg/mL (<100)
[2023-12-28 10:58] LABS: SLIDE REVIEW VERIFIED
[2023-12-28 11:01] LABS: Influenza A PCR NEGATIVE (Negative); Influenza B PCR NEGATIVE (Negative); Resp Syncy Virus RNA Qual PCR NEGATIVE (Negative); SARS COV2 PCR INHOUSE NEGATIVE (Negative)
[2023-12-28] MEDS: Potassium Chloride ER 20 MEQ TAB.ER.PRT PO (11:29)
[2023-12-28] MEDS: cefTRIAXone sodium 1 GM in 0.9 % Sodium Chloride 50 ML IV (11:29)
[2023-12-28 11:30] LABS: Lactic Acid 1.2 mmol/L (0.5-2.0)
[2023-12-28 11:35] VITALS: BP 133/50; PULSE 82; RESP 20; TEMP 37.4; O2SAT 93
--- NOTE | 2023-12-28 11:39 | PC.NURSE ---
patient medicated per the MAR, offering no other complaints at this time. IV antibiotics infusing, call sheth within reach
[2023-12-28] MEDS: Albuterol Sulfate 5 MG, Albuterol/Iprat 2.5/0.5MG 3 ML 3 ML INHALE (12:07)
[2023-12-28 12:09] VITALS: BP 143/52; PULSE 81; PULSE 87; RESP 18; RESP 22; O2SAT 93; O2SAT 94
[2023-12-28 13:31] LABS: D Dimer High Sensitivity 163 NG/ML
[2023-12-28 14:02] VITALS: BP 129/58; PULSE 87; RESP 22; TEMP 37.1; O2SAT 93
--- NOTE | 2023-12-28 14:51 | ECG_ITS ---
Test Reason : SOB Blood Pressure : / mmHG Vent. Rate : 084 BPM Atrial Rate : 084 BPM P-R Int : 182 ms QRS Dur : 096 ms QT Int : 438 ms P-R-T Axes : 046 040 113 degrees QTc Int : 517 ms Normal sinus rhythm ST & T wave abnormality, consider anterolateral ischemia Prolonged QT Abnormal ECG When compared with ECG of 01-NOV-2023 10:48, Minimal criteria for Inferior infarct are no longer Present ST now depressed in Anterior leads T wave inversion more evident in Anterolateral leads Referred By: Kalpesh Lea Electronically Signed By:MANUELA GUZMAN MD
[2023-12-28] MEDS: methylPREDNISolone Sod Succ 125 MG/2 ML VIAL IVPUSH (15:13)
--- NOTE | 2023-12-28 15:53 | PC.NURSE ---
continues to rest quietly in room, no complaints at this time. awaiting results from ct scan, plan for admission. call sheth within reach
--- NOTE | 2023-12-28 16:00 | PHA.MEDREC ---
Pharmacy Consult ? Medication Reconciliation Pharmacy has completed the medication reconciliation. Spoke to daughter Brianna via phone and confirmed medication list.
[2023-12-28 16:10] LABS: Troponin-I High Sensitivity 10.3 ng/L (<3.5-17.0)
--- NOTE | 2023-12-28 17:48 | PM.IMHP ---
History of Present Illness Date of Service: 12/28/23 Chief Complaint: Shortness of breath 78-year-old female history of COPD, hypertension, restrictive lung disease, CHF, a flutter on anticoagulation, presenting with fatigue, malaise, myalgias, productive cough, subjective chills. Daughter states this has been worsening over the past several days and her sats at home have been as low as 70. When questioned she states she has been without symptoms; her biggest complaint is productive cough. Recent hospitalizations (2 months remote) for AFib with RVR status post cardioversion with mild CHF. No recent admissions for pneumonia. No recent institutionalization Review of Systems Review of Systems: Denies chest pain Admits to shortness of breath worse with movement Denies nausea vomiting diarrhea Admits to subjective fevers PMFSH Medical History Hypoxemia Dyspnea on exertion Cardiomyopathy Obesity (BMI 30-39.9) Cataract Wears dentures Use of cane as ambulatory aid Arthritis Low back pain High cholesterol HTN (hypertension) Environmental and seasonal allergies Restrictive lung disease Atherosclerotic cardiovascular disease COPD (chronic obstructive pulmonary disease) Family History Father Family history of cancer Mother Colon cancer Alzheimer disease Surgical History Hx of colonoscopy History of tubal ligation History of ankle surgery History of lumpectomy of left breast Social History Household Members: Family Household Members Other:: SON LIVES IN NEXT APARTMENT Housing: Apartment Are you a primary care manager cna to a significant other at home: Yes (grandson age 13, son and daughter supportive) Do you presently have visiting nurse or other home services: No (IN PROCESS OF TRYING TO GET) Alcohol intake: current Alcohol intake frequency: does not drink Patient Tobacco Use Status: Former Tobacco user Quit Date: 20 years ago Tobacco use type: Cigarette Advance Directives: Yes Advance Directives on File: Yes Advance Directives Date on File: 10/17/23 service: No Meds Allergies Allergy/AdvReac Type Severity Reaction Status Date / Time hydrochlorothiazide Allergy Intermediate FELT Verified 12/28/23 10:08 [From ZESTORETIC] FAINT, syncope lisinopril [LISINOPRIL] Allergy Intermediate Cough Verified 12/28/23 10:08 Active Medications: Current Medications Acetaminophen (Acetaminophen 325 Mg Tablet) 650 mg PO Q6H PRN PRN Reason: Pain, Mild (Pain Scale 1-3) Amiodarone HCl (Amiodarone Hcl 200 Mg Tablet) 200 mg PO DAILY [facility] Amlodipine Besylate (Amlodipine Besylate 10 Mg Tablet) 10 mg PO DAILY [facility]; Protocol Apixaban (Apixaban 2.5 Mg Tablet) 2.5 mg PO BID [facility] Fluoxetine HCl (Fluoxetine Hcl 20 Mg Capsule) 20 mg PO DAILY [facility] Furosemide (Furosemide 40 Mg Tablet) 40 mg PO DAILY [facility]; Protocol Isosorbide Mononitrate (Isosorbide Mononitrate 30 Mg Tab.Er.24h) 30 mg PO DAILY [facility]; Protocol Magnesium Hydroxide (Milk Of Magnesia 30 Ml Oral.Susp) 30 ml PO DAILY PRN PRN Reason: Constipation Memantine (Memantine Hcl 10 Mg Tablet) 10 mg PO BID [facility] Metoprolol Succinate (Metoprolol Succinate Er 25 Mg Tab.Er.24h) 25 mg PO DAILY [facility]; Protocol Multivitamins/Vitamin C (Multivitamin Tablet) 1 tab PO DAILY [facility] Nitroglycerin (Nitroglycerin 0.4 Mg Tab.Subl) 0.4 mg SUBLINGUAL Q5M PRN PRN Reason: chest pain Non-Formulary Medication (Calcium Carbonate-Vitamin D3) 1 tab PO DAILY [facility] Non-Formulary Medication (Budesonide-Formoterol [Symbicort]) 2 puff INHALE BID [facility] Ondansetron HCl (Ondansetron Hcl 4 Mg/2 Ml Vial) 4 mg IVPUSH Q8H PRN PRN Reason: Nausea and Vomiting Pravastatin Sodium (Pravastatin Sodium 40 Mg Tablet) 40 mg PO BEDTIME [facility] Sodium Chloride (0.9 % Sodium Chloride Flush 3 Ml Syringe) 3 ml IVFLUSH QSHIFT [facility] Home Medications ?Medication ?Instructions ?Recorded ?Confirmed ?Last Taken ?Type memantine 10 mg tablet 10 mg PO BID 11/25/20 12/28/23 12/28/23 History alendronate 70 mg tablet 70 mg PO MO 12/04/22 12/28/23 12/24/23 History calcium carbonate 600 mg-vitamin 1 tab PO DAILY 10/12/23 12/28/23 12/28/23 History D3 5 mcg (200 unit) tablet fluoxetine 20 mg capsule 20 mg PO DAILY 10/12/23 12/28/23 12/28/23 History pravastatin 40 mg tablet 40 mg PO BEDTIME 11/01/23 12/28/23 12/27/23 History albuterol sulfate 90 mcg/actuation 2 puff inhalation Q4H PRN for 12/28/23 12/28/23 Unknown History aerosol inhaler wheezing budesonide-formoterol HFA 160 2 puff inhalation BID 12/28/23 12/28/23 12/28/23 History mcg-4.5 mcg/actuation aerosol inhaler (Symbicort) multivit-iron 18 mg-folic acid 400 1 tab PO DAILY 12/28/23 12/28/23 12/27/23 History mcg-calcium 500 mg-minerals tablet (Women's One Daily) Physical Exam Vital Signs and Narrative: Vital Signs: Last Vital Signs Temp 98.7 F 12/28/23 14:02 Pulse 87 12/28/23 14:02 Resp 22 H 12/28/23 14:02 BP 129/58 L 12/28/23 14:02 Pulse Ox 93 12/28/23 14:02 O2 Del Method Nasal Cannula 12/28/23 14:02 O2 Flow Rate 2 12/28/23 12:09 Oxygen Flow Rate 2 12/28/23 10:07 BMI result Body Mass Index 28.6 Const: Other: Awake alert no acute distress. Able to speak in full sentences Resp: Other: Diminished throughout with diffuse expiratory wheezes and coarse rhonchi that clear with cough Cardio: Other: Regular rate and rhythm; no S4; positive S1-S2; no S3 murmurs rubs or gallops GI: Other: Soft nontender nondistended normoactive bowel sounds Neuro: Other: Nerves 2 through 12 grossly intact as tested. Motor is 5/5 all extremities sensation is intact. Cognition appropriate. Gait not observed Extrem: Other: No edema bilaterally Results Labs 12/28/23 10:17 12/28/23 10:17 Labs: Laboratory Results - last 24 hr 12/28/23 12/28/23 12/28/23 10:16 10:17 11:08 MCV 84.2 MCH 28.0 MCHC 33.2 RDW 15.3 Plt Count 373 MPV 9.1 L Immature Gran % (Auto) 0.8 H Neut % (Auto) 84.2 H Lymph % (Auto) 5.5 L [place] % (Auto) 9.1 Eos % (Auto) 0.1 Baso % (Auto) 0.3 Lymph # (Auto) 1.3 [place] # (Auto) 2.1 H Eos # (Auto) 0.0 Baso # (Auto) 0.1 Abs Immat Gran (auto) 0.18 H Absolute Neuts (auto) 19.5 H Absolute Nucleated RBC 0.000 Nucleated RBC % (auto) 0.0 Smear Tech's Comments VERIFIED PT 20.1 H D INR 1.7 H D-Dimer High Sensitivty 163 Anion Gap 16 Estim Creat Clear Calc 30.0 Estimated GFR 31 Random Glucose 130 H Lactic Acid 1.2 Calcium 9.4 Magnesium 2.3 Total Bilirubin 0.9 AST 20 ALT 15 Alkaline Phosphatase 94 Troponin I High Sens 13.0 B-Natriuretic Peptide 998 H Total Protein 8.6 H Albumin 3.5 Lipase 25 Influenza Type A (PCR) NEGATIVE Influenza Type B (PCR) NEGATIVE RSV RNA Qual (PCR) NEGATIVE SARS-CoV-2 RNA (RT-PCR) NEGATIVE 12/28/23 15:35 MCV MCH MCHC RDW Plt Count MPV Immature Gran % (Auto) Neut % (Auto) Lymph % (Auto) [place] % (Auto) Eos % (Auto) Baso % (Auto) Lymph # (Auto) [place] # (Auto) Eos # (Auto) Baso # (Auto) Abs Immat Gran (auto) Absolute Neuts (auto) Absolute Nucleated RBC Nucleated RBC % (auto) Smear Tech's Comments PT INR D-Dimer High Sensitivty Anion Gap Estim Creat Clear Calc Estimated GFR Random Glucose Lactic Acid Calcium Magnesium Total Bilirubin AST ALT Alkaline Phosphatase Troponin I High Sens 10.3 B-Natriuretic Peptide Total Protein Albumin Lipase Influenza Type A (PCR) Influenza Type B (PCR) RSV RNA Qual (PCR) SARS-CoV-2 RNA (RT-PCR) Imaging Radiologist's Impressions: Impressions Chest X-Ray 12/28/23 10:35 IMPRESSION: Increased central bronchovascular markings, question airways disease versus mild pulmonary edema. Chest CT 12/28/23 14:34 IMPRESSION: Diffuse airways disease and lingular atelectasis or small infiltrate. Severe atherosclerotic disease and coronary artery and aortic valve calcification. 1 x 1.7 cm asymmetric density in the right lateral breast. This is not be compared with old chest CT from 2021. Correlation with physical exam and mammogram recommended. Fleischner guidelines were followed. Assessment and Plan (1) Pneumonia: Qualifiers: Pneumonia type: due to unspecified organism Laterality: unspecified laterality Lung location: unspecified part of lung Qualified Code(s): J18.9 - Pneumonia, unspecified organism Status: Acute (2) CKD (chronic kidney disease): Qualifiers: Chronic kidney disease stage 3 subtype: stage 3b (GFR 30-44) Chronic kidney disease stage: stage 3 (moderate) Qualified Code(s): N18.32 - Chronic kidney disease, stage 3b Status: Acute (3) Acute hypoxemic respiratory failure: Status: Acute (4) Essential hypertension: Status: Acute Plan 78-year-old female with known history of COPD/interstitial fibrosis along with history of a flutter on Eliquis presents with worsening shortness of breath over the last 1-2 weeks. She is on chronic O2 at home however her sats have not been maintained; family states prior to presentation to ER her sats at home were in the 70-80 range. When queried patient states she was asymptomatic with this save a productive cough of thick mucus. 1. Left upper lung infiltrate/acute hypoxemic respiratory failure -ceftriaxone/doxycycline (1) (avoid azithromycin given amiodarone use) -pulse dose methylprednisolone -DuoNebs q.4 hours while awake as needed -titrate O2 to maintain sats greater than or equal to 90%... -check VBG in a.m. to rule out CO2 retention 2. CKD 3B -at baseline; no indication for diuresis -follow renals/divalents 3. History of a flutter status post cardioversion -continue amiodarone as ordered; exam/EKG normal sinus rhythm at this time -continue Eliquis 4. Hypertension (primary) -acceptable control on current therapies -adjust as indicated Full code (discussed at length with patient) Eliquis Requires at least 2 midnights of inpatient stay for IV antibiotics and IV steroids to treat hypoxemic respiratory failure secondary to left upper lung infiltrate. Requires close monitoring of O2 sats. Can not be achieved in a lesser acute setting Quality Stroke Does the patient have a stroke diagnosis?: No VTE Prior VTE?: No VTE Risk Level:: Medical - moderate - high VTE Device Contraindication: Treatment Not Indicated VTE Drug Contraindication: N/A - Med Ordered
[2023-12-28 18:14] VITALS: BP 160/65; PULSE 84; RESP 24; TEMP 36.7; O2SAT 93
[2023-12-28] MEDS: Doxycycline Hyclate 100 MG in 0.9 % Sodium Chloride 250 ML 166.67 MG IV (19:05)
[2023-12-28 21:10] VITALS: BMI 28.6
[2023-12-28 21:17] VITALS: BP 143/64; PULSE 83; RESP 17; TEMP 36; O2SAT 92
[2023-12-28] MEDS: Memantine HCl 10 MG TABLET PO (21:28)
[2023-12-28] MEDS: Pravastatin Sodium 40 MG TABLET PO (21:28)
[2023-12-28] MEDS: Apixaban 2.5 MG TABLET PO (21:28)
[2023-12-29] VITALS (13 sets, daily range): BP systolic 110–149; BP diastolic 59–76; PULSE 79–127; RESP 16–20; TEMP 36.1–36.7; O2SAT 93–95
--- NOTE | 2023-12-29 | ECG_ITS ---
Test Reason : irreg hr, tachy Blood Pressure : / mmHG Vent. Rate : 113 BPM Atrial Rate : 000 BPM P-R Int : 000 ms QRS Dur : 102 ms QT Int : 372 ms P-R-T Axes : 000 044 197 degrees QTc Int : 510 ms Atrial fibrillation with rapid ventricular response with premature ventricular or aberrantly conducted complexes Left ventricular hypertrophy with repolarization abnormality ( Sokolow-Sylvester , [place] product ) Abnormal ECG When compared with ECG of 28-DEC-2023 15:18, Atrial fibrillation has replaced Sinus rhythm Inverted T waves have replaced nonspecific T wave abnormality in Inferior leads Referred By: Alessandra Mcnair Electronically Signed By:MANUELA GUZMAN MD
[2023-12-29] MEDS: methylPREDNISolone Sod Succ 125 MG/2 ML VIAL 60 MG IVPUSH ×2 (00:11→05:40)
[2023-12-29] MEDS: 0.9 % Sodium Chloride Flush 3 ML SYRINGE IVFLUSH ×3 (00:12→16:19)
[2023-12-29] MEDS: Doxycycline Hyclate 100 MG in 0.9 % Sodium Chloride 250 ML 166.67 MG IV ×2 (05:42→17:04)
[2023-12-29 07:05] LABS: MANUAL DIFF FLAG NO
[2023-12-29 07:07] LABS: Basophils Percent Auto 0.1 % (0-2); Hematocrit 30.1 % (37.0-47.0); Imm Gran Abs Auto 0.17 X10*3/uL (0.00-0.03); Imm Gran Pct Auto 1.2 % (0.0-0.4); Lymphocytes Percent Auto 7.3 % (20-40); Mean Corpuscular HGB Conc 33.2 g/dl (31.0-35.0); Mean Corpuscular Hemoglobin 27.8 pg (27.0-33.0); Mean Corpuscular Volume 83.6 fL (80.0-98.0); Mean Platelet Volume 9.4 fL (9.4-12.3); Monocytes Absolute Auto 0.4 X10*3/uL (0.1-1.2); Monocytes Percent Auto 2.6 % (2-11); Neutrophils Absolute Auto 12.5 x10*3/uL (2.0-8.3); Neutrophils Percent Auto 88.8 % (45-73); Platelet Count 350 X10*3/uL (160-400); Red Cell Distribution Width 15.2 % (11.0-16.0)
[2023-12-29 07:08] LABS: Venous Blood Gas Refer to POC result
[2023-12-29 07:11] LABS: VBG Base Excess 5.7 mmol/L; VBG HCO3 29 mmol/L (22-26); VBG pCO2 37 mmHg; VBG pO2 58 mmHg
[2023-12-29 07:26] LABS: Alanine Aminotransferase 16 U/L (0-31); Albumin Level 3.2 g/dL (3.5-5.0); Alkaline Phosphatase 88 U/L (39-117); Anion Gap 14 (12-20); Aspartate Amino Transferase 21 U/L (5-31); Bilirubin Total 0.5 mg/dL (0.0-1.0); Blood Urea Nitrogen 35 mg/dL (9-16); Calcium 8.9 mg/dL (8.4-10.2); Carbon Dioxide 25 mmol/L (22-29); Chloride 102 mmol/L (96-108); Creatinine Clr Calc Pharmacy 31.1; Estimated Glomerular Filt Rate 32; Glucose Random 176 mg/dL (60-115); Potassium 3.6 mmol/L (3.3-5.1); Sodium 137 mmol/L (135-145); Total Protein 8.1 g/dL (6.5-8.0)
[2023-12-29] MEDS: Fluticasone/Vilanterol 200/25 BLST.W.DEV 1 PUFF INHALE (08:27)
[2023-12-29] MEDS: Multivitamin TABLET 1 TAB PO (08:42)
[2023-12-29] MEDS: Metoprolol Succinate ER 25 MG TAB.ER.24H PO (08:42)
[2023-12-29] MEDS: Calcium + Vitamin D 250 MG TABLET 500 MG PO (08:43)
[2023-12-29] MEDS: FLUoxetine HCl 20 MG CAPSULE PO (08:43)
[2023-12-29] MEDS: Memantine HCl 10 MG TABLET PO ×2 (08:43→19:20)
[2023-12-29] MEDS: Furosemide 40 MG TABLET PO (08:43)
[2023-12-29] MEDS: Isosorbide Mononitrate 30 MG TAB.ER.24H PO (08:43)
[2023-12-29] MEDS: Apixaban 2.5 MG TABLET PO ×2 (08:43→19:20)
[2023-12-29] MEDS: amLODIPine Besylate 10 MG TABLET PO (08:43)
[2023-12-29] MEDS: Amiodarone HCL 200 MG TABLET PO (08:43)
[2023-12-29 09:33] LABS: Procalcitonin 0.33 ng/mL
--- NOTE | 2023-12-29 11:40 | MHC.CM.PN ---
PATIENT LIVES IN HOME WITH SON LIVING UPSTAIRS. DAUGHTER, CLAUS, IS ACTIVELY INVOLVED IN PATIENT'S ADLs. CLAUS ALSO WORKS FOR [employer], AND PATIENT IS ACTIVE WITH AGENCY. SHE REPORTS RN SKILLS AND HOME P.T. PATIENT USES HOME O2, SUPPLIED THROUGH [employer], AND STATES THAT A DELIVERY OF O2 WAS RECENTLY MADE TO THE HOME. PATIENT ALSO USES A CANE NEEDED FOR AMBULATION ASSIST. [facility]AN IS CURRENTLY HOME WITH RESUMPTION OF [employer] SERVICES. HCP ON FILE AND VERIFIED. IMM 12/28 IN CHART
[2023-12-29] MEDS: Albuterol/Iprat 2.5/0.5MG 3 ML AMPUL.NEB INHALE ×3 (11:43→20:16)
[2023-12-29] MEDS: cefTRIAXone sodium 1 GM in 0.9 % Sodium Chloride 50 ML IV (12:00)
--- NOTE | 2023-12-29 12:22 | P.PNIM_ITS ---
Subjective Subjective Date of Service: 12/29/23 Interval History: coughing with sputum wheezing + dyspnea improved no fever Review of Systems Review of Systems: Yes all other systems are reviewed and are negative Physical Exam 2 Vital Signs: Vital Signs: Last Vital Signs Temp 96.9 F 12/29/23 07:32 Pulse 109 H 12/29/23 11:44 Resp 16 12/29/23 11:44 BP 123/76 12/29/23 07:32 Pulse Ox 95 12/29/23 07:13 O2 Del Method Nasal Cannula 12/29/23 07:32 O2 Flow Rate 2 12/29/23 07:32 Oxygen Flow Rate 2 12/28/23 10:07 BMI result Body Mass Index 28.6 Gen: in no acute distress HEENT: sclera anicteric, moist mucus membranes Neck: supple Lungs: bilateral expiratory wheezing Heart: regular rate and rhythm, no murmurs Abd: soft, non-tender, non-distended Ext: no edema Skin: warm/well-perfused Neuro: alert and oriented x3, no focal findings Psych: appropriate affect Objective Data Active Medications Acetaminophen (Acetaminophen 325 Mg Tablet) 650 mg PO Q6H PRN PRN Reason: Pain, Mild (Pain Scale 1-3) Albuterol Sulfate (Albuterol Sulfate (0.083%) 2.5 Mg/3 Ml Vial.Neb) 2.5 mg INHALE Q2H PRN PRN Reason: Shortness of Breath/Wheezing Albuterol/Ipratropium (Albuterol/Iprat 2.5/0.5mg 3 Ml Ampul.Neb) 3 ml INHALE RQ4H WHILE AWAKE [facility] Last Admin: 12/29/23 11:43 Dose: 3 ml Documented By: LATONIA Amiodarone HCl (Amiodarone Hcl 200 Mg Tablet) 200 mg PO DAILY [facility] Last Admin: 12/29/23 08:43 Dose: 200 mg Documented By: JAVIER Amlodipine Besylate (Amlodipine Besylate 10 Mg Tablet) 10 mg PO DAILY [facility]; Protocol Last Admin: 12/29/23 08:43 Dose: 10 mg Documented By: JAVIER Apixaban (Apixaban 2.5 Mg Tablet) 2.5 mg PO BID [facility] Last Admin: 12/29/23 08:43 Dose: 2.5 mg Documented By: JAVIER Calcium Carbonate/Cholecalciferol (Calcium + Vitamin D 250 Mg Tablet) 500 mg PO DAILY [facility] Last Admin: 12/29/23 08:43 Dose: 500 mg Documented By: JAVIER Fluoxetine HCl (Fluoxetine Hcl 20 Mg Capsule) 20 mg PO DAILY [facility] Last Admin: 12/29/23 08:43 Dose: 20 mg Documented By: JAVIER Fluticasone/Vilanterol (Fluticasone/Vilanterol 200/25 Blst.W.Dev) 1 puff INHALE RDAILY [facility] Last Admin: 12/29/23 08:27 Dose: 1 puff Documented By: LATONIA Furosemide (Furosemide 40 Mg Tablet) 40 mg PO DAILY [facility]; Protocol Last Admin: 12/29/23 08:43 Dose: 40 mg Documented By: JAVIER Ceftriaxone Sodium 1 gm/ (Sodium Chloride) 50 mls @ 100 mls/hr IV Q24H [facility] Last Admin: 12/29/23 12:00 Dose: 100 mls/hr Documented By: JAY Doxycycline Hyclate 100 mg/ (Sodium Chloride) 250 mls @ 166.67 mls/hr IV Q12H [facility] Last Infusion: 12/29/23 07:22 Dose: Infused Documented By: JAY Isosorbide Mononitrate (Isosorbide Mononitrate 30 Mg Tab.Er.24h) 30 mg PO DAILY [facility]; Protocol Last Admin: 12/29/23 08:43 Dose: 30 mg Documented By: JAVIER Magnesium Hydroxide (Milk Of Magnesia 30 Ml Oral.Susp) 30 ml PO DAILY PRN PRN Reason: Constipation Memantine (Memantine Hcl 10 Mg Tablet) 10 mg PO BID [facility] Last Admin: 12/29/23 08:43 Dose: 10 mg Documented By: JAVIER Methylprednisolone Sodium Succinate (Methylprednisolone Sod Succ 125 Mg/2 Ml Vial) 40 mg IVPUSH Q12H [facility] Metoprolol Succinate (Metoprolol Succinate Er 25 Mg Tab.Er.24h) 25 mg PO DAILY [facility]; Protocol Last Admin: 12/29/23 08:42 Dose: 25 mg Documented By: JAVIER Multivitamins/Vitamin C (Multivitamin Tablet) 1 tab PO DAILY [facility] Last Admin: 12/29/23 08:42 Dose: 1 tab Documented By: JAVIER Nitroglycerin (Nitroglycerin 0.4 Mg Tab.Subl) 0.4 mg SUBLINGUAL Q5M PRN PRN Reason: chest pain Ondansetron HCl (Ondansetron Hcl 4 Mg/2 Ml Vial) 4 mg IVPUSH Q8H PRN PRN Reason: Nausea and Vomiting Pravastatin Sodium (Pravastatin Sodium 40 Mg Tablet) 40 mg PO BEDTIME [facility] Last Admin: 12/28/23 21:28 Dose: 40 mg Documented By: ENDER Sodium Chloride (0.9 % Sodium Chloride Flush 3 Ml Syringe) 3 ml IVFLUSH QSHIFT [facility] Last Admin: 12/29/23 08:42 Dose: 3 ml Documented By: JAVIER Labs 12/29/23 06:58 12/29/23 06:58 Labs: Laboratory Results - last 24 hr 12/28/23 12/28/23 12/29/23 10:16 15:35 06:58 MCV 83.6 MCH 27.8 MCHC 33.2 RDW 15.2 Plt Count 350 MPV 9.4 Immature Gran % (Auto) 1.2 H Neut % (Auto) 88.8 H Lymph % (Auto) 7.3 L [place] % (Auto) 2.6 Eos % (Auto) 0.0 Baso % (Auto) 0.1 Lymph # (Auto) 1.0 L [place] # (Auto) 0.4 Eos # (Auto) 0.0 Baso # (Auto) 0.0 Abs Immat Gran (auto) 0.17 H Absolute Neuts (auto) 12.5 H Absolute Nucleated RBC 0.000 Nucleated RBC % (auto) 0.0 D-Dimer High Sensitivty 163 VBG pH VBG pCO2 VBG pO2 VBG HCO3 VBG O2 Saturation VBG Base Excess Anion Gap 14 Estim Creat Clear Calc 31.1 Estimated GFR 32 Random Glucose 176 H Calcium 8.9 Total Bilirubin 0.5 AST 21 ALT 16 Alkaline Phosphatase 88 Troponin I High Sens 10.3 Total Protein 8.1 H Albumin 3.2 L Procalcitonin 0.33 12/29/23 07:01 MCV MCH MCHC RDW Plt Count MPV Immature Gran % (Auto) Neut % (Auto) Lymph % (Auto) [place] % (Auto) Eos % (Auto) Baso % (Auto) Lymph # (Auto) [place] # (Auto) Eos # (Auto) Baso # (Auto) Abs Immat Gran (auto) Absolute Neuts (auto) Absolute Nucleated RBC Nucleated RBC % (auto) D-Dimer High Sensitivty VBG pH 7.50 H VBG pCO2 37 VBG pO2 58 VBG HCO3 29 H VBG O2 Saturation 87.0 VBG Base Excess 5.7 Anion Gap Estim Creat Clear Calc Estimated GFR Random Glucose Calcium Total Bilirubin AST ALT Alkaline Phosphatase Troponin I High Sens Total Protein Albumin Procalcitonin Assessment and Plan (1) COPD (chronic obstructive pulmonary disease): Status: Acute Plan d2 78yo F with COPD + atrial flutter, chronically on 2L O2, presenting with dyspnea x 1-2 weeks and also hypoxic acute hypoxic resp failure due to pneumonia and COPD exac - ceftriaxone + doxycycline 4/5- - methylprednisolone 4/5- - nebs, home controller inhalers - trend PCT, follow BCx, check SpCx + RVP - currently on 2L O2 as per home dose CKD stage 3 - SCr at baseline atrial flutter - continue apixaban + amiodarone + metoprolol succinate HTN chronic HFrEF - continue amlodipine + Imdur + metoprolol succinate + furosemide VTE ppx - apixaban dispo - TBD In my clinical judgment, the patient requires continued inpatient hospitalization for the following reasons: IV ABX Total time managing care of this patient today: 40 minutes. Quality Stroke Does the patient have a stroke diagnosis?: No VTE Prior VTE?: No VTE Risk Level:: Medical - moderate - high VTE Device Contraindication: Treatment Not Indicated VTE Drug Contraindication: N/A - Med Ordered
[2023-12-29 12:29] LABS: Adenovirus PCR Not Detected (Not Detect.); Bordetella parapertussis PCR Not Detected (Not Detect.); Bordetella pertussis PCR Not Detected (Not Detect.); Chlamydia pneumoniae PCR Not Detected (Not Detect.); Coronavirus 229E PCR Not Detected (Not Detect.); Coronavirus HKU1 PCR Not Detected (Not Detect.); Coronavirus NL63 PCR Not Detected (Not Detect.); Coronavirus OC43 PCR Not Detected (Not Detect.); Human metapneumovirus PCR Detected (Not Detect.); Influenza A PCR Not Detected (Not Detect.); Influenza B PCR Not Detected (Not Detect.); Mycoplasma pneumoniae PCR Not Detected (Not Detect.); Parainfluenza 1 PCR Not Detected (Not Detect.); Parainfluenza 2 PCR Not Detected (Not Detect.); Parainfluenza 3 PCR Not Detected (Not Detect.); Parainfluenza 4 PCR Not Detected (Not Detect.); RSV PCR Not Detected (Not Detect.); Rhino/Enterovirus PCR Not Detected (Not Detect.); SARS-CoV-2 PCR Not Detected (Not Detect.)
[2023-12-29] MEDS: methylPREDNISolone Sod Succ 125 MG/2 ML VIAL 40 MG IVPUSH (16:18)
[2023-12-29] MEDS: Metoprolol Tartrate 5 MG/5 ML VIAL 2.5 MG IVPUSH (16:38)
--- NOTE | 2023-12-29 16:44 | PC.NURSE ---
Notified by [employer] patients HR maintaining 110-120's w/ 1600 vitals. Patient asymptomatic. BP stable. Dr Mcnair notified - EKG ordered and reading Afib RVR 110's. Tele monitor ordered and applied. Lopressor 2.5mg IVP ordered and administered - effectiveness pending. SBP maintaining 120's. Dr Mcnair notified.
[2023-12-29] MEDS: Metoprolol Tartrate 5 MG/5 ML VIAL IVPUSH (17:21)
[2023-12-29] MEDS: Pravastatin Sodium 40 MG TABLET PO (19:20)
[2023-12-29] MEDS: guaiFENesin 200 MG/10 ML 10 ML LIQUID PO (19:39)
[2023-12-30] VITALS (9 sets, daily range): BP systolic 119–153; BP diastolic 70–80; PULSE 98–113; RESP 16–18; TEMP 36.1–36.6; O2SAT 91–96
[2023-12-30] MEDS: 0.9 % Sodium Chloride Flush 3 ML SYRINGE IVFLUSH ×3 (00:57→23:57)
[2023-12-30] MEDS: methylPREDNISolone Sod Succ 125 MG/2 ML VIAL 40 MG IVPUSH ×2 (05:34→17:24)
[2023-12-30] MEDS: Doxycycline Hyclate 100 MG in 0.9 % Sodium Chloride 250 ML 166.67 MG IV ×2 (05:36→17:26)
[2023-12-30] MEDS: guaiFENesin 200 MG/10 ML 10 ML LIQUID PO ×3 (05:44→17:25)
[2023-12-30 06:52] LABS: MANUAL DIFF FLAG NO
[2023-12-30 07:09] LABS: Basophils Absolute Auto 0.1 X10*3/uL (0.0-0.2); Basophils Percent Auto 0.2 % (0-2); Hematocrit 28.5 % (37.0-47.0); Hemoglobin 9.2 g/dl (12.0-16.0); Imm Gran Pct Auto 2.2 % (0.0-0.4); Lymphocytes Absolute Auto 1.2 X10*3/uL (1.2-4.9); Lymphocytes Percent Auto 5.3 % (20-40); Mean Corpuscular HGB Conc 32.3 g/dl (31.0-35.0); Mean Corpuscular Hemoglobin 27.6 pg (27.0-33.0); Mean Corpuscular Volume 85.6 fL (80.0-98.0); Mean Platelet Volume 9.7 fL (9.4-12.3); Monocytes Absolute Auto 1.3 X10*3/uL (0.1-1.2); Neutrophils Absolute Auto 19.3 x10*3/uL (2.0-8.3); Neutrophils Percent Auto 86.3 % (45-73); Platelet Count 410 X10*3/uL (160-400); Red Blood Count 3.33 X10*6/uL (4.20-5.50); Red Cell Distribution Width 15.5 % (11.0-16.0); White Blood Count 22.4 X10*3/uL (4.8-10.8)
[2023-12-30 07:31] LABS: B Type Natriuretic Peptide 862 pg/mL (<100)
[2023-12-30 08:18] LABS: Immature Retic Fraction 33.2 % (3.0-15.9); Retic HGB Equivalent 27.6 pg (30.0-35.0); Reticulocyte Percent 2.1 % (0.5-1.8); Reticulocytes Absolute 0.072 X10*6/uL (0.026-0.095)
[2023-12-30] MEDS: Albuterol/Iprat 2.5/0.5MG 3 ML AMPUL.NEB INHALE ×3 (08:26→19:46)
[2023-12-30] MEDS: Fluticasone/Vilanterol 200/25 BLST.W.DEV 1 PUFF INHALE (08:35)
[2023-12-30] MEDS: Calcium + Vitamin D 250 MG TABLET 500 MG PO (09:45)
[2023-12-30] MEDS: Isosorbide Mononitrate 30 MG TAB.ER.24H PO (09:45)
[2023-12-30] MEDS: Multivitamin TABLET 1 TAB PO (09:45)
[2023-12-30] MEDS: Memantine HCl 10 MG TABLET PO ×2 (09:45→21:12)
[2023-12-30] MEDS: Furosemide 40 MG TABLET PO (09:45)
[2023-12-30] MEDS: amLODIPine Besylate 10 MG TABLET PO (09:45)
[2023-12-30] MEDS: Metoprolol Succinate ER 50 MG TAB.ER.24H PO (09:46)
[2023-12-30] MEDS: Amiodarone HCL 200 MG TABLET PO (09:46)
[2023-12-30] MEDS: FLUoxetine HCl 20 MG CAPSULE PO (09:46)
[2023-12-30] MEDS: Apixaban 2.5 MG TABLET PO ×2 (09:46→21:12)
[2023-12-30 11:18] LABS: Alanine Aminotransferase 38 U/L (0-31); Albumin Level 3.2 g/dL (3.5-5.0); Alkaline Phosphatase 96 U/L (39-117); Anion Gap 16 (12-20); Aspartate Amino Transferase 56 U/L (5-31); Bilirubin Total 0.3 mg/dL (0.0-1.0); Blood Urea Nitrogen 49 mg/dL (9-16); Calcium 8.8 mg/dL (8.4-10.2); Carbon Dioxide 24 mmol/L (22-29); Chloride 102 mmol/L (96-108); Creatinine Clr Calc Pharmacy 29.6; Estimated Glomerular Filt Rate 31; Ferritin 544 ng/mL (10-250); Glucose Random 155 mg/dL (60-115); Iron 49 mcg/dL (30-160); Lactate Dehydrogenase 317 U/L (122-220); Magnesium 2.3 mg/dL (1.6-2.6); Percent Iron Saturation 30 % (15-50); Potassium 3.5 mmol/L (3.3-5.1); Sodium 138 mmol/L (135-145); Total Iron Binding Capacity 164 mcg/dL (228-428); Total Protein 7.9 g/dL (6.5-8.0); Unsaturated Iron Binding 115 ug/dL
--- NOTE | 2023-12-30 11:21 | HO.PM.IMPN ---
Subjective Subjective Date of Service: 12/30/23 Interval History: went into AF/RVR yesterday afternoon with rate in 110s, currently around 100 still wheezing no fever HMPV+ Review of Systems Review of Systems: Yes all other systems are reviewed and are negative Physical Exam Vital Signs: Vital Signs: Last Vital Signs Temp 97.3 F 12/30/23 07:26 Pulse 101 H 12/30/23 11:10 Resp 18 12/30/23 11:10 BP 153/80 H 12/30/23 07:26 Pulse Ox 96 12/30/23 07:26 O2 Del Method Room Air 12/30/23 07:26 O2 Flow Rate 2 12/30/23 07:17 Oxygen Flow Rate 2 12/28/23 10:07 BMI result Body Mass Index 28.6 Gen: in no acute distress HEENT: sclera anicteric, moist mucus membranes Neck: supple Lungs: bilateral expiratory wheezing Heart: irregular, no murmurs Abd: soft, non-tender, non-distended Ext: no edema Skin: warm/well-perfused Neuro: alert and oriented x3, no focal findings Psych: appropriate affect Objective Data Active Medications Acetaminophen (Acetaminophen 325 Mg Tablet) 650 mg PO Q6H PRN PRN Reason: Pain, Mild (Pain Scale 1-3) Albuterol Sulfate (Albuterol Sulfate (0.083%) 2.5 Mg/3 Ml Vial.Neb) 2.5 mg INHALE Q2H PRN PRN Reason: Shortness of Breath/Wheezing Albuterol/Ipratropium (Albuterol/Iprat 2.5/0.5mg 3 Ml Ampul.Neb) 3 ml INHALE RQ4H WHILE AWAKE [facility] Last Admin: 12/30/23 11:10 Dose: 3 ml Documented By: EVARISTO Amiodarone HCl (Amiodarone Hcl 200 Mg Tablet) 200 mg PO DAILY [facility] Last Admin: 12/30/23 09:46 Dose: 200 mg Documented By: JAY Amlodipine Besylate (Amlodipine Besylate 10 Mg Tablet) 10 mg PO DAILY [facility]; Protocol Last Admin: 12/30/23 09:45 Dose: 10 mg Documented By: JAY Apixaban (Apixaban 2.5 Mg Tablet) 2.5 mg PO BID [facility] Last Admin: 12/30/23 09:46 Dose: 2.5 mg Documented By: JAY Calcium Carbonate/Cholecalciferol (Calcium + Vitamin D 250 Mg Tablet) 500 mg PO DAILY [facility] Last Admin: 12/30/23 09:45 Dose: 500 mg Documented By: JAY Fluoxetine HCl (Fluoxetine Hcl 20 Mg Capsule) 20 mg PO DAILY [facility] Last Admin: 12/30/23 09:46 Dose: 20 mg Documented By: JAY Fluticasone/Vilanterol (Fluticasone/Vilanterol 200/25 Blst.W.Dev) 1 puff INHALE RDAILY [facility] Last Admin: 12/30/23 08:35 Dose: 1 puff Documented By: EVARISTO Furosemide (Furosemide 40 Mg Tablet) 40 mg PO DAILY [facility]; Protocol Last Admin: 12/30/23 09:45 Dose: 40 mg Documented By: JAY Guaifenesin (Guaifenesin 200 Mg/10 Ml 10 Ml Liquid) 10 ml PO Q4H PRN PRN Reason: Cough Last Admin: 12/30/23 05:44 Dose: 10 ml Documented By: MARINA Ceftriaxone Sodium 1 gm/ (Sodium Chloride) 50 mls @ 100 mls/hr IV Q24H [facility] Last Infusion: 12/29/23 12:42 Dose: Infused Documented By: JAY Doxycycline Hyclate 100 mg/ (Sodium Chloride) 250 mls @ 166.67 mls/hr IV Q12H [facility] Last Infusion: 12/30/23 08:28 Dose: Infused Documented By: JAY Isosorbide Mononitrate (Isosorbide Mononitrate 30 Mg Tab.Er.24h) 30 mg PO DAILY [facility]; Protocol Last Admin: 12/30/23 09:45 Dose: 30 mg Documented By: JAY Magnesium Hydroxide (Milk Of Magnesia 30 Ml Oral.Susp) 30 ml PO DAILY PRN PRN Reason: Constipation Memantine (Memantine Hcl 10 Mg Tablet) 10 mg PO BID [facility] Last Admin: 12/30/23 09:45 Dose: 10 mg Documented By: JAY Methylprednisolone Sodium Succinate (Methylprednisolone Sod Succ 125 Mg/2 Ml Vial) 40 mg IVPUSH Q12H [facility] Last Admin: 12/30/23 05:34 Dose: 40 mg Documented By: HO.SEXK Metoprolol Succinate (Metoprolol Succinate Er 50 Mg Tab.Er.24h) 50 mg PO DAILY [facility]; Protocol Last Admin: 12/30/23 09:46 Dose: 50 mg Documented By: JAY Multivitamins/Vitamin C (Multivitamin Tablet) 1 tab PO DAILY [facility] Last Admin: 12/30/23 09:45 Dose: 1 tab Documented By: JAY Nitroglycerin (Nitroglycerin 0.4 Mg Tab.Subl) 0.4 mg SUBLINGUAL Q5M PRN PRN Reason: chest pain Ondansetron HCl (Ondansetron Hcl 4 Mg/2 Ml Vial) 4 mg IVPUSH Q8H PRN PRN Reason: Nausea and Vomiting Pravastatin Sodium (Pravastatin Sodium 40 Mg Tablet) 40 mg PO BEDTIME [facility] Last Admin: 12/29/23 19:20 Dose: 40 mg Documented By: CHANTAL Sodium Chloride (0.9 % Sodium Chloride Flush 3 Ml Syringe) 3 ml IVFLUSH QSHIFT [facility] Last Admin: 12/30/23 09:46 Dose: Not Given Documented By: JAY Non-Admin Reason: iv leaking Labs 12/30/23 05:50 12/30/23 05:50 Labs: Laboratory Results - last 24 hr 12/29/23 12/30/23 10:38 05:50 MCV 85.6 MCH 27.6 MCHC 32.3 RDW 15.5 Plt Count 410 H MPV 9.7 Immature Gran % (Auto) 2.2 H Neut % (Auto) 86.3 H Lymph % (Auto) 5.3 L [place] % (Auto) 6.0 Eos % (Auto) 0.0 Baso % (Auto) 0.2 Lymph # (Auto) 1.2 [place] # (Auto) 1.3 H Eos # (Auto) 0.0 Baso # (Auto) 0.1 Abs Immat Gran (auto) 0.50 H Absolute Neuts (auto) 19.3 H Absolute Nucleated RBC 0.000 Nucleated RBC % (auto) 0.0 Absolute Retic 0.072 Percent Retic 2.1 H Immature Retic Fraction 33.2 H Retic Hgb Equivalent 27.6 L Anion Gap 16 Estim Creat Clear Calc 29.6 Estimated GFR 31 Random Glucose 155 H Calcium 8.8 Magnesium 2.3 Iron 49 TIBC 164 L % Saturation 30 Unsat Iron Binding 115 Ferritin 544 H Total Bilirubin 0.3 AST 56 H ALT 38 H Alkaline Phosphatase 96 Lactate Dehydrogenase 317 H B-Natriuretic Peptide 862 H Total Protein 7.9 Albumin 3.2 L Respiratory Panel Rose See Note Adenovirus (Rapid PCR) Not Detected B.pert (TEM-PCR) Not Detected B.parapertussis DNA PCR Not Detected C. pneumoniae DNA (PCR) Not Detected Coronavirus OC43 (PCR) Not Detected Coronavirus HKU1 (PCR) Not Detected Coronavirus 229E (PCR) Not Detected Coronavirus NL63 (PCR) Not Detected Human Metapneumovir PCR Detected A Influenza A (RT-PCR) Not Detected Influenza B (RT-PCR) Not Detected M. pneumoniae (PCR) Not Detected Parainfluenza 1 (PCR) Not Detected Parainfluenza 2 (PCR) Not Detected Parainfluenza 3 (PCR) Not Detected Parainfluenza 4 (PCR) Not Detected RSV (PCR) Not Detected Entero/Rhino (PCR) Not Detected SARS-CoV-2 RNA (RT-PCR) Not Detected Microbiology Microbiology Results: Microbiology 12/28/23 11:08 Blood Culture - Preliminary Blood - Venous No growth after 24 hours. 12/28/23 10:17 Blood Culture - Preliminary Blood - Venous No growth after 24 hours. Assessment and Plan (1) COPD (chronic obstructive pulmonary disease): Status: Acute Plan d3 78yo F with COPD + atrial flutter, chronically on 2L O2, presenting with dyspnea x 1-2 weeks and also hypoxic acute hypoxic resp failure due to pneumonia and COPD exac - ceftriaxone + doxycycline 4/5- - methylprednisolone 4/5- - nebs, home controller inhalers - trend PCT, follow BCx, RVP positive for human metapneumovirus - currently on 2L O2 as per home dose CKD stage 3 - SCr at baseline AF/RVR - increase metoprolol succinate 25->50 mg daily. got 7.5 mg IV yesterday. - conitnue amiodarone - continue apixaban normocytic anemia - likely anemia of chronic disease but check FOBT, B12/FA HTN chronic HFrEF - continue amlodipine + Imdur + metoprolol succinate + furosemide VTE ppx - apixaban dispo - PT eval In my clinical judgment, the patient requires continued inpatient hospitalization for the following reasons: IV ABX, rate control Total time managing care of this patient today: 40 minutes. Quality Stroke Does the patient have a stroke diagnosis?: No VTE Prior VTE?: No VTE Risk Level:: Medical - moderate - high VTE Device Contraindication: Treatment Not Indicated VTE Drug Contraindication: N/A - Med Ordered
[2023-12-30] MEDS: cefTRIAXone sodium 1 GM in 0.9 % Sodium Chloride 50 ML IV (12:13)
[2023-12-30] MEDS: Metoprolol Tartrate 5 MG/5 ML VIAL IVPUSH (14:26)
--- NOTE | 2023-12-30 15:30 | PC.NURSE ---
HR 110's-120's Afib on monitor. Dr. Mcnari notified. Order for 1x dose IV metoprolol. Given @4129. HR currently 110's.
[2023-12-30] MEDS: Pravastatin Sodium 40 MG TABLET PO (21:12)
[2023-12-31] VITALS (9 sets, daily range): BP systolic 116–129; BP diastolic 62–81; PULSE 100–133; RESP 14–20; TEMP 36.1–36.4; O2SAT 90–94
[2023-12-31] MEDS: methylPREDNISolone Sod Succ 125 MG/2 ML VIAL 40 MG IVPUSH (04:56)
[2023-12-31] MEDS: Doxycycline Hyclate 100 MG in 0.9 % Sodium Chloride 250 ML 166.67 MG IV ×2 (04:57→18:03)
[2023-12-31 06:37] LABS: Hematocrit 27.7 % (37.0-47.0); Hemoglobin 8.9 g/dl (12.0-16.0); Mean Corpuscular HGB Conc 32.1 g/dl (31.0-35.0); Mean Corpuscular Hemoglobin 27.8 pg (27.0-33.0); Mean Corpuscular Volume 86.6 fL (80.0-98.0); Mean Platelet Volume 9.8 fL (9.4-12.3); Platelet Count 449 X10*3/uL (160-400); Red Cell Distribution Width 15.7 % (11.0-16.0); White Blood Count 19.6 X10*3/uL (4.8-10.8)
[2023-12-31 07:01] LABS: Anion Gap 12 (12-20); Blood Urea Nitrogen 47 mg/dL (9-16); Calcium 8.7 mg/dL (8.4-10.2); Carbon Dioxide 27 mmol/L (22-29); Chloride 107 mmol/L (96-108); Creatinine Clr Calc Pharmacy 32.6; Estimated Glomerular Filt Rate 34; Glucose Random 151 mg/dL (60-115); Potassium 4.1 mmol/L (3.3-5.1); Sodium 142 mmol/L (135-145)
[2023-12-31 07:02] LABS: Band Neutrophils Percent 1 % (3-5); Lymphocytes Percent Manual 10 % (20-40); Metamyelocytes Absolute 0.6 X10*3/uL; Metamyelocytes Percent 3 %; Monocytes Absolute Manual 0.6 X10*3/uL (0.1-1.2); Monocytes Percent Manual 3 % (2-11); Neutrophils Absolute Manual 16.5 X10*3/uL (2.0-8.3); Neutrophils Percent Manual 83 % (45-73)
[2023-12-31 07:08] LABS: Hypochromasia 1+ (5-14) /OIF; Microcytosis 1+ (5-14) /OIF; Platelet Estimate NORMAL (NORMAL); Platelet Morphology Comment NOTED; RBC Morphology NOTED
[2023-12-31 07:09] LABS: Large Platelet PRESENT
[2023-12-31 07:18] LABS: Procalcitonin 0.11 ng/mL
[2023-12-31 07:29] LABS: Folate 9.9 ng/mL (> or = 4.0); Vitamin B12 520 pg/mL (200-900)
[2023-12-31] MEDS: Albuterol/Iprat 2.5/0.5MG 3 ML AMPUL.NEB INHALE ×4 (08:37→19:52)
[2023-12-31] MEDS: Fluticasone/Vilanterol 200/25 BLST.W.DEV 1 PUFF INHALE (08:37)
[2023-12-31] MEDS: 0.9 % Sodium Chloride Flush 3 ML SYRINGE IVFLUSH ×3 (09:37→20:10)
[2023-12-31] MEDS: Isosorbide Mononitrate 30 MG TAB.ER.24H PO (09:38)
[2023-12-31] MEDS: Calcium + Vitamin D 250 MG TABLET 500 MG PO (09:38)
[2023-12-31] MEDS: Apixaban 2.5 MG TABLET PO ×2 (09:38→20:09)
[2023-12-31] MEDS: FLUoxetine HCl 20 MG CAPSULE PO (09:38)
[2023-12-31] MEDS: Amiodarone HCL 200 MG TABLET PO (09:38)
[2023-12-31] MEDS: Multivitamin TABLET 1 TAB PO (09:39)
[2023-12-31] MEDS: Memantine HCl 10 MG TABLET PO ×2 (09:39→20:09)
[2023-12-31] MEDS: Metoprolol Succinate ER 100 MG TAB.ER.24H PO (09:39)
[2023-12-31] MEDS: Furosemide 40 MG TABLET PO (09:39)
[2023-12-31] MEDS: amLODIPine Besylate 10 MG TABLET PO (09:39)
--- NOTE | 2023-12-31 11:08 | P.PNIM_ITS ---
Subjective Subjective Date of Service: 12/31/23 Interval History: AF- rate still uncontrolled, 100s-120s breathing improved Review of Systems Review of Systems: Yes all other systems are reviewed and are negative Physical Exam 2 Vital Signs: Vital Signs: Last Vital Signs Temp 97.6 F 12/31/23 07:06 Pulse 133 H 12/31/23 10:25 Resp 16 12/31/23 08:39 BP 129/81 12/31/23 07:06 Pulse Ox 92 12/31/23 10:25 O2 Del Method Nasal Cannula 12/31/23 07:06 O2 Flow Rate 2 12/31/23 07:06 Oxygen Flow Rate 2 12/28/23 10:07 BMI result Body Mass Index 28.6 Gen: in no acute distress HEENT: sclera anicteric, moist mucus membranes Neck: supple Lungs: scatterd end-expiratory wheezing Heart: irregular, rapid, no murmurs Abd: soft, non-tender, non-distended Ext: no edema Skin: warm/well-perfused Neuro: alert and oriented x3, no focal findings Psych: appropriate affect Objective Data Active Medications Acetaminophen (Acetaminophen 325 Mg Tablet) 650 mg PO Q6H PRN PRN Reason: Pain, Mild (Pain Scale 1-3) Albuterol Sulfate (Albuterol Sulfate (0.083%) 2.5 Mg/3 Ml Vial.Neb) 2.5 mg INHALE Q2H PRN PRN Reason: Shortness of Breath/Wheezing Albuterol/Ipratropium (Albuterol/Iprat 2.5/0.5mg 3 Ml Ampul.Neb) 3 ml INHALE RQ4H WHILE AWAKE [facility] Last Admin: 12/31/23 08:37 Dose: 3 ml Documented By: PATRICK Amiodarone HCl (Amiodarone Hcl 200 Mg Tablet) 200 mg PO DAILY [facility] Last Admin: 12/31/23 09:38 Dose: 200 mg Documented By: J LUIS Amlodipine Besylate (Amlodipine Besylate 10 Mg Tablet) 10 mg PO DAILY [facility]; Protocol Last Admin: 12/31/23 09:39 Dose: 10 mg Documented By: J LUIS Apixaban (Apixaban 2.5 Mg Tablet) 2.5 mg PO BID [facility] Last Admin: 12/31/23 09:38 Dose: 2.5 mg Documented By: J LUIS Calcium Carbonate/Cholecalciferol (Calcium + Vitamin D 250 Mg Tablet) 500 mg PO DAILY [facility] Last Admin: 12/31/23 09:38 Dose: 500 mg Documented By: J LUIS Fluoxetine HCl (Fluoxetine Hcl 20 Mg Capsule) 20 mg PO DAILY [facility] Last Admin: 12/31/23 09:38 Dose: 20 mg Documented By: J LUIS Fluticasone/Vilanterol (Fluticasone/Vilanterol 200/25 Blst.W.Dev) 1 puff INHALE RDAILY [facility] Last Admin: 12/31/23 08:37 Dose: 1 puff Documented By: PATRICK Furosemide (Furosemide 40 Mg Tablet) 40 mg PO DAILY [facility]; Protocol Last Admin: 12/31/23 09:39 Dose: 40 mg Documented By: J LUIS Guaifenesin (Guaifenesin 200 Mg/10 Ml 10 Ml Liquid) 10 ml PO Q4H PRN PRN Reason: Cough Last Admin: 12/30/23 17:25 Dose: 10 ml Documented By: CHANTAL Ceftriaxone Sodium 1 gm/ (Sodium Chloride) 50 mls @ 100 mls/hr IV Q24H [facility] Last Infusion: 12/30/23 13:03 Dose: Infused Documented By: JAY Doxycycline Hyclate 100 mg/ (Sodium Chloride) 250 mls @ 166.67 mls/hr IV Q12H [facility] Last Infusion: 12/31/23 06:27 Dose: Infused Documented By: ENDER Isosorbide Mononitrate (Isosorbide Mononitrate 30 Mg Tab.Er.24h) 30 mg PO DAILY [facility]; Protocol Last Admin: 12/31/23 09:38 Dose: 30 mg Documented By: J LUIS Magnesium Hydroxide (Milk Of Magnesia 30 Ml Oral.Susp) 30 ml PO DAILY PRN PRN Reason: Constipation Memantine (Memantine Hcl 10 Mg Tablet) 10 mg PO BID [facility] Last Admin: 12/31/23 09:39 Dose: 10 mg Documented By: J LUIS Methylprednisolone Sodium Succinate (Methylprednisolone Sod Succ 125 Mg/2 Ml Vial) 40 mg IVPUSH Q12H [facility] Last Admin: 12/31/23 04:56 Dose: 40 mg Documented By: ENDER Metoprolol Succinate (Metoprolol Succinate Er 100 Mg Tab.Er.24h) 100 mg PO DAILY [facility]; Protocol Last Admin: 12/31/23 09:39 Dose: 100 mg Documented By: J LUIS Multivitamins/Vitamin C (Multivitamin Tablet) 1 tab PO DAILY [facility] Last Admin: 12/31/23 09:39 Dose: 1 tab Documented By: J LUIS Nitroglycerin (Nitroglycerin 0.4 Mg Tab.Subl) 0.4 mg SUBLINGUAL Q5M PRN PRN Reason: chest pain Ondansetron HCl (Ondansetron Hcl 4 Mg/2 Ml Vial) 4 mg IVPUSH Q8H PRN PRN Reason: Nausea and Vomiting Pravastatin Sodium (Pravastatin Sodium 40 Mg Tablet) 40 mg PO BEDTIME [facility] Last Admin: 12/30/23 21:12 Dose: 40 mg Documented By: CHANTAL Sodium Chloride (0.9 % Sodium Chloride Flush 3 Ml Syringe) 3 ml IVFLUSH QSHIFT [facility] Last Admin: 12/31/23 09:37 Dose: 3 ml Documented By: J LUIS Labs 12/31/23 05:31 12/31/23 05:31 Labs: Laboratory Results - last 24 hr 12/30/23 12/31/23 05:50 05:31 MCV 86.6 MCH 27.8 MCHC 32.1 RDW 15.7 Plt Count 449 H MPV 9.8 Immature Gran % (Auto) Cancelled Neut % (Auto) Cancelled Lymph % (Auto) Cancelled Nolan % (Auto) Cancelled Eos % (Auto) Cancelled Baso % (Auto) Cancelled Lymph # (Auto) Cancelled Nolan # (Auto) Cancelled Eos # (Auto) Cancelled Baso # (Auto) Cancelled Abs Immat Gran (auto) Cancelled Absolute Neuts (auto) Cancelled Absolute Nucleated RBC 0.000 Nucleated RBC % (auto) 0.0 Neutrophils % (Manual) 83 H Band Neutrophils % 1 L Lymphocytes % (Manual) 10 L Monocytes % (Manual) 3 Metamyelocytes % 3 Abs Neuts (Manual) 16.5 H Lymphocytes # (Manual) 2.0 Monocytes # (Manual) 0.6 Metamyelocytes # 0.6 Platelet Estimate NORMAL Large Platelets PRESENT Plt Morphology Comment NOTED RBC Morphology NOTED Hypochromasia 1+ (5-14) Microcytosis 1+ (5-14) Anion Gap 16 12 Estim Creat Clear Calc 29.6 32.6 Estimated GFR 31 34 Random Glucose 155 H 151 H Calcium 8.8 8.7 Magnesium 2.3 Iron 49 TIBC 164 L % Saturation 30 Unsat Iron Binding 115 Ferritin 544 H Total Bilirubin 0.3 AST 56 H ALT 38 H Alkaline Phosphatase 96 Lactate Dehydrogenase 317 H Total Protein 7.9 Albumin 3.2 L Vitamin B12 520 Folate 9.9 Procalcitonin 0.11 Microbiology Microbiology Results: Microbiology 12/28/23 11:08 Blood Culture - Preliminary Blood - Venous No growth after 48 hours. 12/28/23 10:17 Blood Culture - Preliminary Blood - Venous No growth after 48 hours. Assessment and Plan (1) COPD (chronic obstructive pulmonary disease): Status: Acute Plan d4 78yo F with COPD + atrial flutter, chronically on 2L O2, presenting with dyspnea x 1-2 weeks and also hypoxic acute hypoxic resp failure due to pneumonia and COPD exac - ceftriaxone + doxycycline 12/27- - methylprednisolone 12/27-12/30, change to prednisone taper 12/31- - nebs, home controller inhalers - PCT low, BCx negative, RVP positive for human metapneumovirus - currently on 2L O2 as per home dose CKD stage 3 - SCr at baseline AF/RVR - increase metoprolol succinate 25->50->100 mg daily. Consult Cardiology. - conitnue amiodarone - continue apixaban normocytic anemia - likely anemia of chronic disease; FOBT pending HTN chronic HFrEF - continue amlodipine + Imdur + metoprolol succinate + furosemide VTE ppx - apixaban dispo - PT eval: plan home with [facility] In my clinical judgment, the patient requires continued inpatient hospitalization for the following reasons: IV ABX, rate control Total time managing care of this patient today: 40 minutes. Quality Stroke Does the patient have a stroke diagnosis?: No VTE Prior VTE?: No VTE Risk Level:: Medical - moderate - high VTE Device Contraindication: Treatment Not Indicated VTE Drug Contraindication: N/A - Med Ordered
--- NOTE | 2023-12-31 11:08 | P.CONCA_ITS ---
History of Present Illness History of Present Illness Date of Service: 12/31/23 Requesting physician: Alessandra Mcnair Chief complaint: Pneumonia, PAF Narrative: 78-year-old female who was diagnosed with atrial fibrillation in September with cardiomyopathy. She was cardioverted and sent home on anticoagulation and amiodarone. In October she got admitted with acute blood loss anemia and was off anticoagulation. She was given 1 unit of PRBCs during that admission. She underwent endoscopy but no obvious cause was found it was felt that she had black stools probably due to gastric or small bowel erosions. She was advised to have repeat CBC in a week and then resume Eliquis. Unsure when the Eliquis was resumed. She is now presenting with shortness of breath and pneumonia and is on antibiotics. She also developed atrial fibrillation during the hospital admission. She is taking Eliquis 2.5 mg twice a day and amiodarone 200 mg daily. She is also on Namenda for dementia (this can affect conduction and can lead to AV block sometimes.) She is also on 100 mg of Toprol-XL. She is saying she is feeling somewhat better today. She continues to be on supplemental oxygen and still has some productive cough. [facility] Past Medical History Medical History (Updated 12/31/23 @ 11:17 by Rj Duncan MD) Cardiomyopathy Hypoxemia Dyspnea on exertion Obesity (BMI 30-39.9) Cataract Wears dentures Use of cane as ambulatory aid Arthritis Low back pain High cholesterol HTN (hypertension) Environmental and seasonal allergies Restrictive lung disease Atherosclerotic cardiovascular disease COPD (chronic obstructive pulmonary disease) Family History Family History Father Family history of cancer Mother Colon cancer Alzheimer disease Surgical History Surgical History Hx of colonoscopy History of tubal ligation History of ankle surgery History of lumpectomy of left breast Social History Social History Household Members: Family Household Members Other:: SON LIVES IN NEXT APARTMENT Housing: House 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: Yes (grandson age 13, son and daughter supportive) Do you presently have visiting nurse or other home services: Yes Alcohol intake: current Alcohol intake frequency: does not drink Patient Tobacco Use Status: Former Tobacco user Quit Date: 20 years ago Tobacco use type: Cigarette Advance Directives Date on File: 10/17/23 service: No Meds Allergies Allergy/AdvReac Type Severity Reaction Status Date / Time hydrochlorothiazide Allergy Intermediate FELT Verified 12/28/23 10:08 [From ZESTORETIC] FAINT, syncope lisinopril [LISINOPRIL] Allergy Intermediate Cough Verified 12/28/23 10:08 Active Medications: Current Medications Acetaminophen (Acetaminophen 325 Mg Tablet) 650 mg PO Q6H PRN PRN Reason: Pain, Mild (Pain Scale 1-3) Albuterol Sulfate (Albuterol Sulfate (0.083%) 2.5 Mg/3 Ml Vial.Neb) 2.5 mg INHALE Q2H PRN PRN Reason: Shortness of Breath/Wheezing Albuterol/Ipratropium (Albuterol/Iprat 2.5/0.5mg 3 Ml Ampul.Neb) 3 ml INHALE RQ4H WHILE AWAKE [facility] Last Admin: 12/31/23 08:37 Dose: 3 ml Amiodarone HCl (Amiodarone Hcl 200 Mg Tablet) 200 mg PO DAILY [facility] Last Admin: 12/31/23 09:38 Dose: 200 mg Amlodipine Besylate (Amlodipine Besylate 10 Mg Tablet) 10 mg PO DAILY [facility]; Protocol Last Admin: 12/31/23 09:39 Dose: 10 mg Apixaban (Apixaban 2.5 Mg Tablet) 2.5 mg PO BID [facility] Last Admin: 12/31/23 09:38 Dose: 2.5 mg Calcium Carbonate/Cholecalciferol (Calcium + Vitamin D 250 Mg Tablet) 500 mg PO DAILY [facility] Last Admin: 12/31/23 09:38 Dose: 500 mg Fluoxetine HCl (Fluoxetine Hcl 20 Mg Capsule) 20 mg PO DAILY [facility] Last Admin: 12/31/23 09:38 Dose: 20 mg Fluticasone/Vilanterol (Fluticasone/Vilanterol 200/25 Blst.W.Dev) 1 puff INHALE RDAILY [facility] Last Admin: 12/31/23 08:37 Dose: 1 puff Furosemide (Furosemide 40 Mg Tablet) 40 mg PO DAILY [facility]; Protocol Last Admin: 12/31/23 09:39 Dose: 40 mg Guaifenesin (Guaifenesin 200 Mg/10 Ml 10 Ml Liquid) 10 ml PO Q4H PRN PRN Reason: Cough Last Admin: 12/30/23 17:25 Dose: 10 ml Ceftriaxone Sodium 1 gm/ (Sodium Chloride) 50 mls @ 100 mls/hr IV Q24H [facility] Last Infusion: 12/30/23 13:03 Dose: Infused Doxycycline Hyclate 100 mg/ (Sodium Chloride) 250 mls @ 166.67 mls/hr IV Q12H [facility] Last Infusion: 12/31/23 06:27 Dose: Infused Isosorbide Mononitrate (Isosorbide Mononitrate 30 Mg Tab.Er.24h) 30 mg PO DAILY [facility]; Protocol Last Admin: 12/31/23 09:38 Dose: 30 mg Magnesium Hydroxide (Milk Of Magnesia 30 Ml Oral.Susp) 30 ml PO DAILY PRN PRN Reason: Constipation Memantine (Memantine Hcl 10 Mg Tablet) 10 mg PO BID [facility] Last Admin: 12/31/23 09:39 Dose: 10 mg Methylprednisolone Sodium Succinate (Methylprednisolone Sod Succ 125 Mg/2 Ml Vial) 40 mg IVPUSH Q12H [facility] Last Admin: 12/31/23 04:56 Dose: 40 mg Metoprolol Succinate (Metoprolol Succinate Er 100 Mg Tab.Er.24h) 100 mg PO DAILY [facility]; Protocol Last Admin: 12/31/23 09:39 Dose: 100 mg Multivitamins/Vitamin C (Multivitamin Tablet) 1 tab PO DAILY [facility] Last Admin: 12/31/23 09:39 Dose: 1 tab Nitroglycerin (Nitroglycerin 0.4 Mg Tab.Subl) 0.4 mg SUBLINGUAL Q5M PRN PRN Reason: chest pain Ondansetron HCl (Ondansetron Hcl 4 Mg/2 Ml Vial) 4 mg IVPUSH Q8H PRN PRN Reason: Nausea and Vomiting Pravastatin Sodium (Pravastatin Sodium 40 Mg Tablet) 40 mg PO BEDTIME [facility] Last Admin: 12/30/23 21:12 Dose: 40 mg Sodium Chloride (0.9 % Sodium Chloride Flush 3 Ml Syringe) 3 ml IVFLUSH QSHIFT [facility] Last Admin: 12/31/23 09:37 Dose: 3 ml Home Medications ?Medication ?Instructions ?Recorded ?Confirmed ?Last Taken ?Type memantine 10 mg tablet 10 mg PO BID 11/25/20 12/28/23 12/28/23 History alendronate 70 mg tablet 70 mg PO MO 12/04/22 12/28/23 12/24/23 History calcium carbonate 600 mg-vitamin 1 tab PO DAILY 10/12/23 12/28/23 12/28/23 History D3 5 mcg (200 unit) tablet fluoxetine 20 mg capsule 20 mg PO DAILY 10/12/23 12/28/23 12/28/23 History pravastatin 40 mg tablet 40 mg PO BEDTIME 11/01/23 12/28/23 12/27/23 History albuterol sulfate 90 mcg/actuation 2 puff inhalation Q4H PRN for 12/28/23 12/28/23 Unknown History aerosol inhaler wheezing budesonide-formoterol HFA 160 2 puff inhalation BID 12/28/23 12/28/23 12/28/23 History mcg-4.5 mcg/actuation aerosol inhaler (Symbicort) multivit-iron 18 mg-folic acid 400 1 tab PO DAILY 12/28/23 12/28/23 12/27/23 History mcg-calcium 500 mg-minerals tablet (Women's One Daily) Physical Exam 2 Vital Signs: Vital Signs: Last Vital Signs Temp 97.6 F 12/31/23 07:06 Pulse 133 H 12/31/23 10:25 Resp 16 12/31/23 08:39 BP 129/81 12/31/23 07:06 Pulse Ox 92 12/31/23 10:25 O2 Del Method Nasal Cannula 12/31/23 07:06 O2 Flow Rate 2 12/31/23 07:06 Oxygen Flow Rate 2 12/28/23 10:07 BMI result Body Mass Index 28.6 GENERAL APPEARANCE: in no acute distress, pleasant. NECK: no carotid bruit, no jugular venous distention. SKIN: no suspicious lesions, warm and dry. HEART: no murmurs, irregular rate and rhythm. Tachycardic. LUNGS: clear to auscultation anteriorly. ABDOMEN: soft, nontender. EXTREMITIES: no edema. PERIPHERAL PULSES: equal. NEUROLOGIC: No gross deficits, AAO X 3 Objective Labs and Meds 12/31/23 05:31 12/31/23 05:31 Lab results: Laboratory Results - last 24 hr 12/30/23 12/31/23 05:50 05:31 WBC 19.6 H RBC 3.20 L Hgb 8.9 L Hct 27.7 L MCV 86.6 MCH 27.8 MCHC 32.1 RDW 15.7 Plt Count 449 H MPV 9.8 Immature Gran % (Auto) Cancelled Neut % (Auto) Cancelled Lymph % (Auto) Cancelled [place] % (Auto) Cancelled Eos % (Auto) Cancelled Baso % (Auto) Cancelled Lymph # (Auto) Cancelled Swain # (Auto) Cancelled Eos # (Auto) Cancelled Baso # (Auto) Cancelled Abs Immat Gran (auto) Cancelled Absolute Neuts (auto) Cancelled Absolute Nucleated RBC 0.000 Nucleated RBC % (auto) 0.0 Neutrophils % (Manual) 83 H Band Neutrophils % 1 L Lymphocytes % (Manual) 10 L Monocytes % (Manual) 3 Metamyelocytes % 3 Abs Neuts (Manual) 16.5 H Lymphocytes # (Manual) 2.0 Monocytes # (Manual) 0.6 Metamyelocytes # 0.6 Platelet Estimate NORMAL Large Platelets PRESENT Plt Morphology Comment NOTED RBC Morphology NOTED Hypochromasia 1+ (5-14) Microcytosis 1+ (5-14) Sodium 138 142 Potassium 3.5 4.1 Chloride 102 107 Carbon Dioxide 24 27 Anion Gap 16 12 BUN 49 H 47 H Creatinine 1.62 H 1.47 H Estim Creat Clear Calc 29.6 32.6 Estimated GFR 31 34 Random Glucose 155 H 151 H Calcium 8.8 8.7 Magnesium 2.3 Iron 49 TIBC 164 L % Saturation 30 Unsat Iron Binding 115 Ferritin 544 H Total Bilirubin 0.3 AST 56 H ALT 38 H Alkaline Phosphatase 96 Lactate Dehydrogenase 317 H Total Protein 7.9 Albumin 3.2 L Vitamin B12 520 Folate 9.9 Procalcitonin 0.11 Assessment and Plan (1) Cardiomyopathy: Status: Acute (2) PAF (paroxysmal atrial fibrillation): Status: Acute Plan Pleasant 78-year-old female who is presenting for pneumonia. She unfortunately has developed atrial fibrillation again. She is known cardiomyopathy with recent echo showing EF 30%. Clinically not in heart failure currently. Heart rates are difficult to control due to underlying pneumonia. She is on metoprolol succinate 100 mg daily. It appears her home dose was 25 mg daily and this has been titrated she is also on amiodarone 200 mg daily. Given the cardiomyopathy would not use Cardizem. Can get a loading dose of digoxin 250 mcg x 1. Given her age and the fact that she is on multiple medications, bradycardia can become a problem with multiple medications but currently she is going fairly fast. Would not start her on standing dose of digoxin. As lungs improve we may have to consider cardioversion on her. Continue her Eliquis 2.5 mg twice a day regularly. Also please confirm if possible when did she restart anticoagulation after last week hospitalization. Thank you for allowing me to participate in the care of your patient. Please feel free to contact me if you have any questions. Procedures Date of Service Date of Service: 12/31/23
[2023-12-31] MEDS: cefTRIAXone sodium 1 GM in 0.9 % Sodium Chloride 50 ML IV (11:31)
[2023-12-31 11:56] LABS: Appearance Urine Clear; Color Urine Yellow; Glucose Urine UA Negative (Negative); Leukocyte Esterase Urine Trace (Negative); Nitrite Urine Negative (Negative); Specific Gravity - Urine 1.015 (1.005-1.025); UMIC TRIGGER UACC YES; Urine Blood Negative (Negative); Urine Ketones Negative (Negative); Urine Protein Trace mg/dL (Neg-Trace)
[2023-12-31] MEDS: Digoxin 0.5 MG/2 ML AMPUL 0.25 MG IVPUSH (12:04)
[2023-12-31 12:06] LABS: Bacteria Urine Trace (None Seen); Hyaline Casts Urine 0-2 /LPF (0-2); RBC Urine 0-2 /HPF (0-2); WBC Urine 0-5 /HPF (0-5)
--- NOTE | 2023-12-31 13:16 | P.CDIM_ITS ---
PROVIDER RESPONSE TEXT: To clarify, the appropriate diagnosis supported by the clinical indicators: O2 dependent QUERY TEXT: PHYSICIAN'S DOCUMENTATION REQUEST Date of Query: 12/31/2023 10:21 AM EDT Patient Name: Marge Mcdowell Admit Date: 12/28/2023 Dear Alessandra Mcnair, A review of the medical record indicates additional documentation may be needed. Please review below and update the documentation accordingly. Clinical Indicators: COPD/interstitial fibrosis along with history of a flutter on Eliquis presents with shortness of anna th over last 1-2 weeks. She is on chronic O2 at home. titrate O2 to maintain sats greater than or equal to 90%. RR 24 2 liters oxygen If possible, please further clarify the type and acuity of respiratory failure: Acute on chronic hypoxic respiratory failure O2 dependent Other (explain) Clinically unable to determine (explain) Thank you, Gianna Edwards, CCS, CDIS Use of terms such as suspected, likely, concern for, or probable (associated with a specific diagnosi s that is being evaluated, monitored, or treated as if it exists) are acceptable and can be coded in the inpatient se tting, when documented at the time of discharge. Please use your independent medical judgment in providing your response. THIS QUERY IS PART OF THE PERMANENT MEDICAL RECORD
--- NOTE | 2023-12-31 13:18 | MHC.CM.PN ---
Per MD rounds no dc today. Patient requires IV ABX and heart rate control. DP home with resumption of [facility].
[2023-12-31] MEDS: Pravastatin Sodium 40 MG TABLET PO (20:09)
[2023-12-31] MEDS: guaiFENesin 200 MG/10 ML 10 ML LIQUID PO (20:09)
[2024-01-01] VITALS (9 sets, daily range): BP systolic 125–135; BP diastolic 65–80; PULSE 81–133; RESP 14–20; TEMP 36.1–36.5; O2SAT 90–94
[2024-01-01] MEDS: guaiFENesin 200 MG/10 ML 10 ML LIQUID PO ×2 (05:11→21:22)
[2024-01-01] MEDS: Doxycycline Hyclate 100 MG in 0.9 % Sodium Chloride 250 ML 166.67 MG IV ×2 (05:12→17:48)
[2024-01-01] MEDS: Albuterol/Iprat 2.5/0.5MG 3 ML AMPUL.NEB INHALE ×4 (07:44→20:21)
[2024-01-01] MEDS: amLODIPine Besylate 10 MG TABLET PO (09:02)
[2024-01-01] MEDS: Furosemide 40 MG TABLET PO (09:02)
[2024-01-01] MEDS: predniSONE 20 MG TABLET 40 MG PO (09:02)
[2024-01-01] MEDS: Calcium + Vitamin D 250 MG TABLET 500 MG PO (09:02)
[2024-01-01] MEDS: Apixaban 2.5 MG TABLET PO ×2 (09:03→21:22)
[2024-01-01] MEDS: Memantine HCl 10 MG TABLET PO ×2 (09:03→21:22)
[2024-01-01] MEDS: 0.9 % Sodium Chloride Flush 3 ML SYRINGE IVFLUSH ×3 (09:03→21:23)
[2024-01-01] MEDS: Isosorbide Mononitrate 30 MG TAB.ER.24H PO (09:03)
[2024-01-01] MEDS: Metoprolol Succinate ER 100 MG TAB.ER.24H PO (09:03)
[2024-01-01] MEDS: Amiodarone HCL 200 MG TABLET PO (09:03)
[2024-01-01] MEDS: Multivitamin TABLET 1 TAB PO (09:03)
[2024-01-01] MEDS: FLUoxetine HCl 20 MG CAPSULE PO (09:28)
[2024-01-01 10:20] LABS: OBS Int Ctl Valid YES; OBS1 NEGATIVE (NEGATIVE)
[2024-01-01] MEDS: cefTRIAXone sodium 1 GM in 0.9 % Sodium Chloride 50 ML IV (11:05)
[2024-01-01] MEDS: Fluticasone/Vilanterol 200/25 BLST.W.DEV 1 PUFF INHALE (11:27)
--- NOTE | 2024-01-01 11:38 | PM.PNCARD ---
Subjective Subjective Date of Service: 01/01/24 Interval history: Seen examined at bedside. Feeling better. Heart rate better controlled. Physical Exam Vital Signs: Last Vital Signs Temp 97.0 F 01/01/24 07:42 Pulse 88 01/01/24 11:28 Resp 16 01/01/24 11:28 BP 131/65 01/01/24 07:42 Pulse Ox 90 L 01/01/24 07:42 O2 Del Method Nasal Cannula 01/01/24 07:42 O2 Flow Rate 2 01/01/24 07:42 Oxygen Flow Rate 2 12/28/23 10:07 BMI result Body Mass Index 28.6 GENERAL APPEARANCE: in no acute distress, pleasant. NECK: no carotid bruit, no jugular venous distention. SKIN: no suspicious lesions, warm and dry. HEART: no murmurs, irregular rate and rhythm. LUNGS: clear to auscultation anteriorly. ABDOMEN: soft, nontender. EXTREMITIES: no edema. PERIPHERAL PULSES: equal. NEUROLOGIC: No gross deficits, AAO X 3 Objective Labs and Meds 12/31/23 05:31 12/31/23 05:31 Lab results: Laboratory Results - last 24 hr 12/31/23 01/01/24 Unknown Unknown Urine Color Yellow Urine Appearance Clear Urine pH 6.0 Ur Specific [place] 1.015 Urine Protein Trace Urine Glucose (UA) Negative Urine Ketones Negative Urine Blood Negative Urine Nitrite Negative Ur Leukocyte Esterase Trace H Urine RBC 0-2 Urine WBC 0-5 Ur Squamous Epith Cells 3-5 Urine Bacteria Trace Hyaline Casts 0-2 Stool Occult Blood NEGATIVE Progress Note: A&P Assessment and plan (1) PAF (paroxysmal atrial fibrillation): Status: Acute (2) Cardiomyopathy: Status: Acute Plan Pleasant 78-year-old female presenting for pneumonia and who developed atrial fibrillation with rapid ventricular response. Previously she had AFib and was cardioverted in September. In October she got admitted with GI bleed and anticoagulation was stopped. Unclear when she resumed her anticoagulation. She was given digoxin load. Her Toprol-XL was increased to 100 mg during the hospitalization. She is on amiodarone 200 mg daily. Heart rates are better controlled currently. Given the fact that she is just recovering from pneumonia, chances of maintaining sinus rhythm after cardioversion is low and risky to sedate her as she may get hypoxic and may need intubation. With rate control strategy for now she is doing okay. Will give her few weeks to recover and then perform outpatient cardioversion. Thank you for allowing me to participate in the care of your patient. Please feel free to contact me if you have any questions. Time Spent With Patient Time: Total time managing care of this patient today ____ minutes. Progress Note: Quality Stroke Does the patient have a stroke diagnosis?: No Procedures Date of Service Date of Service: 01/01/24
--- NOTE | 2024-01-01 12:13 | MHC.CM.PN ---
Per MD rounds discharge was planned today. Discharge is cancelled today. Heart rate 130's. [facility] notified that discharge is on hold. DP home with resumption of [facility]. Family will provide transport home.
--- NOTE | 2024-01-01 13:29 | HO.PM.IMPN ---
Subjective Subjective Date of Service: 01/01/24 Interval History: AF/RVR to 130s with exertion, short of breath with exertion overall feeling better, though; heart rate 80s-100s at rest Review of Systems Review of Systems: Yes all other systems are reviewed and are negative Physical Exam Vital Signs: Vital Signs: Last Vital Signs Temp 97.0 F 01/01/24 07:42 Pulse 133 H 01/01/24 12:21 Resp 16 01/01/24 11:28 BP 131/65 01/01/24 07:42 Pulse Ox 92 01/01/24 12:21 O2 Del Method Nasal Cannula 01/01/24 07:42 O2 Flow Rate 2 01/01/24 07:42 Oxygen Flow Rate 2 12/28/23 10:07 BMI result Body Mass Index 28.6 Gen: in no acute distress HEENT: sclera anicteric, moist mucus membranes Neck: supple Lungs: scattered end-expiratory wheezing Heart: irregular, rapid, no murmurs Abd: soft, non-tender, non-distended Ext: no edema Skin: warm/well-perfused Neuro: alert and oriented x3, no focal findings Psych: appropriate affect Objective Data Active Medications Acetaminophen (Acetaminophen 325 Mg Tablet) 650 mg PO Q6H PRN PRN Reason: Pain, Mild (Pain Scale 1-3) Albuterol Sulfate (Albuterol Sulfate (0.083%) 2.5 Mg/3 Ml Vial.Neb) 2.5 mg INHALE Q2H PRN PRN Reason: Shortness of Breath/Wheezing Albuterol/Ipratropium (Albuterol/Iprat 2.5/0.5mg 3 Ml Ampul.Neb) 3 ml INHALE RQ4H WHILE AWAKE [facility] Last Admin: 01/01/24 11:28 Dose: 3 ml Documented By: LUIS ALFREDO Amiodarone HCl (Amiodarone Hcl 200 Mg Tablet) 200 mg PO DAILY [facility] Last Admin: 01/01/24 09:03 Dose: 200 mg Documented By: J LUIS Amlodipine Besylate (Amlodipine Besylate 10 Mg Tablet) 10 mg PO DAILY [facility]; Protocol Last Admin: 01/01/24 09:02 Dose: 10 mg Documented By: J LUIS Apixaban (Apixaban 2.5 Mg Tablet) 2.5 mg PO BID [facility] Last Admin: 01/01/24 09:03 Dose: 2.5 mg Documented By: J LUIS Calcium Carbonate/Cholecalciferol (Calcium + Vitamin D 250 Mg Tablet) 500 mg PO DAILY [facility] Last Admin: 01/01/24 09:02 Dose: 500 mg Documented By: J LUIS Fluoxetine HCl (Fluoxetine Hcl 20 Mg Capsule) 20 mg PO DAILY [facility] Last Admin: 01/01/24 09:28 Dose: 20 mg Documented By: J LUIS Fluticasone/Vilanterol (Fluticasone/Vilanterol 200/25 Blst.W.Dev) 1 puff INHALE RDAILY [facility] Last Admin: 01/01/24 11:27 Dose: 1 puff Documented By: LUIS ALFREDO Furosemide (Furosemide 40 Mg Tablet) 40 mg PO DAILY [facility]; Protocol Last Admin: 01/01/24 09:02 Dose: 40 mg Documented By: J LUIS Guaifenesin (Guaifenesin 200 Mg/10 Ml 10 Ml Liquid) 10 ml PO Q4H PRN PRN Reason: Cough Last Admin: 01/01/24 05:11 Dose: 10 ml Documented By: IMELDA Ceftriaxone Sodium 1 gm/ (Sodium Chloride) 50 mls @ 100 mls/hr IV Q24H [facility] Last Infusion: 01/01/24 11:38 Dose: Infused Documented By: J LUIS Doxycycline Hyclate 100 mg/ (Sodium Chloride) 250 mls @ 166.67 mls/hr IV Q12H [facility] Last Infusion: 01/01/24 06:48 Dose: Infused Documented By: IMELDA Isosorbide Mononitrate (Isosorbide Mononitrate 30 Mg Tab.Er.24h) 30 mg PO DAILY [facility]; Protocol Last Admin: 01/01/24 09:03 Dose: 30 mg Documented By: J LUIS Magnesium Hydroxide (Milk Of Magnesia 30 Ml Oral.Susp) 30 ml PO DAILY PRN PRN Reason: Constipation Memantine (Memantine Hcl 10 Mg Tablet) 10 mg PO BID [facility] Last Admin: 01/01/24 09:03 Dose: 10 mg Documented By: J LUIS Metoprolol Succinate (Metoprolol Succinate Er 100 Mg Tab.Er.24h) 100 mg PO DAILY [facility]; Protocol Last Admin: 01/01/24 09:03 Dose: 100 mg Documented By: J LUIS Multivitamins/Vitamin C (Multivitamin Tablet) 1 tab PO DAILY [facility] Last Admin: 01/01/24 09:03 Dose: 1 tab Documented By: J LUIS Nitroglycerin (Nitroglycerin 0.4 Mg Tab.Subl) 0.4 mg SUBLINGUAL Q5M PRN PRN Reason: chest pain Ondansetron HCl (Ondansetron Hcl 4 Mg/2 Ml Vial) 4 mg IVPUSH Q8H PRN PRN Reason: Nausea and Vomiting Pravastatin Sodium (Pravastatin Sodium 40 Mg Tablet) 40 mg PO BEDTIME [facility] Last Admin: 12/31/23 20:09 Dose: 40 mg Documented By: IMELDA Prednisone (Prednisone 20 Mg Tablet) 40 mg PO DAILY [facility] Last Admin: 01/01/24 09:02 Dose: 40 mg Documented By: J LUIS Sodium Chloride (0.9 % Sodium Chloride Flush 3 Ml Syringe) 3 ml IVFLUSH QSHIFT [facility] Last Admin: 01/01/24 09:03 Dose: 3 ml Documented By: J LUIS Labs 12/31/23 05:31 12/31/23 05:31 Labs: Laboratory Results - last 24 hr 01/01/24 Unknown Stool Occult Blood NEGATIVE Microbiology Microbiology Results: Microbiology 12/31/23 Unknown Gram Stain - Final Sputum - Expectorated Sputum Culture - Preliminary Normal so far. Assessment and Plan (1) COPD (chronic obstructive pulmonary disease): Status: Acute Plan d5 78yo F with COPD + atrial flutter, chronically on 2L O2, presenting with dyspnea x 1-2 weeks and also hypoxic acute hypoxic resp failure due to pneumonia and COPD exac - ceftriaxone + doxycycline 12/27- - methylprednisolone 12/27-12/30, prednisone taper 12/31- - nebs, home controller inhalers - PCT low, BCx negative, RVP positive for human metapneumovirus - currently on 2L O2 as per home dose CKD stage 3 - SCr at baseline AF/RVR - increased metoprolol succinate 25->50->100 mg daily. Cardiology consulted and given 250 mcg IV digoxin on 12/30 - conitnue amiodarone - continue apixaban normocytic anemia - likely anemia of chronic disease; FOBT negative HTN chronic HFrEF - continue amlodipine + Imdur + metoprolol succinate + furosemide VTE ppx - apixaban dispo - PT eval: plan home with VNA In my clinical judgment, the patient requires continued inpatient hospitalization for the following reasons: IV ABX, HR still too high Total time managing care of this patient today: 40 minutes. Quality Stroke Does the patient have a stroke diagnosis?: No VTE Prior VTE?: No VTE Risk Level:: Medical - moderate - high VTE Device Contraindication: Treatment Not Indicated VTE Drug Contraindication: N/A - Med Ordered
[2024-01-01] MEDS: Pravastatin Sodium 40 MG TABLET PO (21:22)
[2024-01-02] VITALS (8 sets, daily range): BP systolic 133–137; BP diastolic 66–76; PULSE 74–134; RESP 16–19; TEMP 36–36.7; O2SAT 90–94
[2024-01-02] MEDS: Doxycycline Hyclate 100 MG in 0.9 % Sodium Chloride 250 ML 166.67 MG IV (07:05)
[2024-01-02] MEDS: Albuterol/Iprat 2.5/0.5MG 3 ML AMPUL.NEB INHALE ×3 (07:43→14:55)
[2024-01-02] MEDS: Fluticasone/Vilanterol 200/25 BLST.W.DEV 1 PUFF INHALE (07:43)
[2024-01-02] MEDS: 0.9 % Sodium Chloride Flush 3 ML SYRINGE IVFLUSH (08:49)
[2024-01-02] MEDS: FLUoxetine HCl 20 MG CAPSULE PO (08:51)
[2024-01-02] MEDS: Isosorbide Mononitrate 30 MG TAB.ER.24H PO (08:51)
[2024-01-02] MEDS: Multivitamin TABLET 1 TAB PO (08:51)
[2024-01-02] MEDS: Furosemide 40 MG TABLET PO (08:51)
[2024-01-02] MEDS: Amiodarone HCL 200 MG TABLET PO (08:52)
[2024-01-02] MEDS: predniSONE 20 MG TABLET 40 MG PO (08:52)
[2024-01-02] MEDS: Calcium + Vitamin D 250 MG TABLET 500 MG PO (08:52)
[2024-01-02] MEDS: Apixaban 2.5 MG TABLET PO (08:52)
[2024-01-02] MEDS: Memantine HCl 10 MG TABLET PO (08:52)
[2024-01-02] MEDS: Metoprolol Succinate ER 100 MG TAB.ER.24H PO (08:52)
[2024-01-02] MEDS: amLODIPine Besylate 10 MG TABLET PO (08:52)
--- NOTE | 2024-01-02 10:19 | MHC.CM.PN ---
IMM 01/02/24 Patient is discharged today. PT rec Pulmonary rehab. Patient refuses SNF stay. Patient has custody of a grandchild. She states that she will dc with resumption of [facility]. MD notified of patients dispo concerns. Patients daughter will provide transportation home.
[2024-01-02] MEDS: cefTRIAXone sodium 1 GM in 0.9 % Sodium Chloride 50 ML IV (12:06)
--- NOTE | 2024-01-02 14:05 | W.MHC.F2F ---
Service Date Service Date: 01/02/24 Encounter Date of encounter: 01/02/24 Reasons for Services Signs and symptoms assessed: Dyspnea on Exertion,Gross Deconditioning, Impaired Gait Pattern, Impaired Safety ,Impaired Standing Balance, Impaired Transfer Ability,Muscle Weakness, Postural Asymmetry Reason for physical therapy: home safety and mobility, therapeutic exercises, gait/transfer training, assess need for DME, ADL training and energy conservation MD Overseeing Care: Brii West Homebound: Leaving the home is medically contraindicated at this time without the asist of a device and/or another person due th the listed conditions above and below. Reason homebound: shortness of breath with minimal effort Certification: Based on the above findings, I certify that this patient is confined to the home and needs intermittent retirement care, physical therapy and/or speech therapy, or continues to need occupational therapy. The patient is under my care, and I have initiated the establishment of the plan of care. The patient will be followed by a physician who will periodically review the plan of care. Time Spent With Patient Time: Total time managing care of this patient today ____ minutes.
--- NOTE | 2024-01-02 14:27 | PM.DS ---
DS: Providers Provider Date of Service: 01/02/24 Date of admission: 12/28/23 17:35 Primary care physician: Brii West NP Consults: 12/31/23 07:50 Consult to Cardiology Routine Consulting Provider: [facility] Cardi[facility] Services Reason for consultation: AF, difficult controlling rate DS: Diagnosis Discharge Diagnosis (1) COPD (chronic obstructive pulmonary disease): Status: Acute (2) Acute on chronic hypoxic respiratory failure: Status: Acute (3) PAF (paroxysmal atrial fibrillation): Status: Acute (4) Pneumonia: Status: Acute (5) COPD exacerbation: Status: Acute DS: Summary Hospital Course Hospital Course: From the history and physical by the admitting hospitalist, Richard Barrett, 12/28/23: 78-year-old female history of COPD, hypertension, restrictive lung disease, CHF, a flutter on anticoagulation, presenting with fatigue, malaise, myalgias, productive cough, subjective chills. Daughter states this has been worsening over the past several days and her sats at home have been as low as 70. When questioned she states she has been without symptoms; her biggest complaint is productive cough. Recent hospitalizations (2 months remote) for AFib with RVR status post cardioversion with mild CHF. No recent admissions for pneumonia. No recent institutionalization 78yo F with COPD + atrial flutter, chronically on 2L O2, presenting with dyspnea x 1-2 weeks and also found to be hypoxic. Hospital course by problem: [id number] hypoxic respiratory failure due to pneumonia and COPD exac - Treated with ceftriaxone + doxycycline 12/27-01/01; discharged on cefdinir + doxycycline for 2 more days. - Also received methylprednisolone 12/27-12/30; transitioned to prednisone taper 12/31 and will continue 8 more days of prednisone taper upon discharge. - Continued on home controller inhalers and given nebulized bronchodilators. Prescribed nebulizer and Duonebs upon discharge. - PCT low, BCx negative, RVP positive for human metapneumovirus - Currently back on 2L O2 as per home dose CKD stage 3 - SCr at baseline AF/RVR - Triggered by lung issues. Increased metoprolol succinate 25->50->100 mg daily. Cardiology consulted and given 250 mcg IV digoxin on 12/30 with improvement. Amiodarone continued, along with apixaban. - Should follow up with [facility] Cardiology in 2 weeks. incidental breast mass [1.7 cm x 1 cm, lateral aspect of R breast] - Noted on CT chest. Referred to [facility] for focused mammography. She was discharged home with VNA services. Time Attestation Discharge Coordination Time (in mins): 45 Quality: Safe Use of Opioids Does Pt have an Active Cancer Diagnosis on the Problem List?: No Quality: Stroke Does the patient have a stroke diagnosis?: No Physical Exam Vital Signs: Vital Signs: Last Vital Signs Temp 96.8 F 01/02/24 07:41 Pulse 104 H 01/02/24 14:24 Resp 16 01/02/24 11:30 BP 135/66 01/02/24 07:41 Pulse Ox 90 L 01/02/24 12:43 O2 Del Method Nasal Cannula 01/02/24 07:41 O2 Flow Rate 2 01/02/24 07:41 Oxygen Flow Rate 2 12/28/23 10:07 BMI result Body Mass Index 28.6 Gen: in no acute distress HEENT: sclera anicteric, moist mucus membranes Neck: supple Lungs: diminished Heart: irregular, no murmurs Abd: soft, non-tender, non-distended Ext: no edema Skin: warm/well-perfused Neuro: alert and oriented x3, no focal findings Psych: appropriate affect DS: Data Data Completed and Pending Completed studies during hospitalization [Text1]: Laboratory Results WBC 19.6 X10*3/uL (4.8-10.8) H 12/31/23 05:31 RBC 3.20 X10*6/uL (4.20-5.50) L 12/31/23 05:31 Hgb 8.9 g/dl (12.0-16.0) L 12/31/23 05:31 Hct 27.7 % (37.0-47.0) L 12/31/23 05:31 MCV 86.6 fL (80.0-98.0) 12/31/23 05:31 MCH 27.8 pg (27.0-33.0) 12/31/23 05:31 MCHC 32.1 g/dl (31.0-35.0) 12/31/23 05:31 RDW 15.7 % (11.0-16.0) 12/31/23 05:31 Plt Count 449 X10*3/uL (160-400) H 12/31/23 05:31 MPV 9.8 fL (9.4-12.3) 12/31/23 05:31 Immature Gran % (Auto) Cancelled 12/31/23 05:31 Neut % (Auto) Cancelled 12/31/23 05:31 Lymph % (Auto) Cancelled 12/31/23 05:31 [place] % (Auto) Cancelled 12/31/23 05:31 Eos % (Auto) Cancelled 12/31/23 05:31 Baso % (Auto) Cancelled 12/31/23 05:31 Lymph # (Auto) Cancelled 12/31/23 05:31 [place] # (Auto) Cancelled 12/31/23 05:31 Eos # (Auto) Cancelled 12/31/23 05:31 Baso # (Auto) Cancelled 12/31/23 05:31 Abs Immat Gran (auto) Cancelled 12/31/23 05:31 Absolute Neuts (auto) Cancelled 12/31/23 05:31 Absolute Nucleated RBC 0.000 X10*3/uL (0.0-0.012) 12/31/23 05:31 Nucleated RBC % (auto) 0.0 /100WBC (0.0-0.2) 12/31/23 05:31 Neutrophils % (Manual) 83 % (45-73) H 12/31/23 05:31 Band Neutrophils % 1 % (3-5) L 12/31/23 05:31 Lymphocytes % (Manual) 10 % (20-40) L 12/31/23 05:31 Monocytes % (Manual) 3 % (2-11) 12/31/23 05:31 Metamyelocytes % 3 % 12/31/23 05:31 Abs Neuts (Manual) 16.5 X10*3/uL (2.0-8.3) H 12/31/23 05:31 Lymphocytes # (Manual) 2.0 X10*3/uL (1.2-4.9) 12/31/23 05:31 Monocytes # (Manual) 0.6 X10*3/uL (0.1-1.2) 12/31/23 05:31 Metamyelocytes # 0.6 X10*3/uL 12/31/23 05:31 Platelet Estimate NORMAL (NORMAL) 12/31/23 05:31 Large Platelets PRESENT 12/31/23 05:31 Plt Morphology Comment NOTED 12/31/23 05:31 RBC Morphology NOTED 12/31/23 05:31 Hypochromasia 1+ (5-14) /OIF 12/31/23 05:31 Microcytosis 1+ (5-14) /OIF 12/31/23 05:31 Smear Tech's Comments VERIFIED 12/28/23 10:17 Absolute Retic 0.072 X10*6/uL (0.026-0.095) 12/30/23 05:50 Percent Retic 2.1 % (0.5-1.8) H 12/30/23 05:50 Immature Retic Fraction 33.2 % (3.0-15.9) H 12/30/23 05:50 Retic Hgb Equivalent 27.6 pg (30.0-35.0) L 12/30/23 05:50 PT 20.1 SEC (11.1-13.3) H D 12/28/23 10:16 INR 1.7 (0.9-1.1) H 12/28/23 10:16 D-Dimer High Sensitivty 163 NG/ML 12/28/23 10:16 VBG pH 7.50 (7.32-7.43) H 12/29/23 07:01 VBG pCO2 37 mmHg 12/29/23 07:01 VBG pO2 58 mmHg 12/29/23 07:01 VBG HCO3 29 mmol/L (22-26) H 12/29/23 07:01 VBG O2 Saturation 87.0 % 12/29/23 07:01 VBG Base Excess 5.7 mmol/L 12/29/23 07:01 Sodium 142 mmol/L (135-145) 12/31/23 05:31 Potassium 4.1 mmol/L (3.3-5.1) 12/31/23 05:31 Chloride 107 mmol/L (96-108) 12/31/23 05:31 Carbon Dioxide 27 mmol/L (22-29) 12/31/23 05:31 Anion Gap 12 (12-20) 12/31/23 05:31 BUN 47 mg/dL (9-16) H 12/31/23 05:31 Creatinine 1.47 mg/dL (0.5-1.4) H 12/31/23 05:31 Estim Creat Clear Calc 32.6 12/31/23 05:31 Estimated GFR 34 12/31/23 05:31 Random Glucose 151 mg/dL (60-115) H 12/31/23 05:31 Lactic Acid 1.2 mmol/L (0.5-2.0) 12/28/23 11:08 Calcium 8.7 mg/dL (8.4-10.2) 12/31/23 05:31 Magnesium 2.3 mg/dL (1.6-2.6) 12/30/23 05:50 Iron 49 mcg/dL (30-160) 12/30/23 05:50 TIBC 164 mcg/dL (228-428) L 12/30/23 05:50 % Saturation 30 % (15-50) 12/30/23 05:50 Unsat Iron Binding 115 ug/dL 12/30/23 05:50 Ferritin 544 ng/mL (10-250) H 12/30/23 05:50 Total Bilirubin 0.3 mg/dL (0.0-1.0) 12/30/23 05:50 AST 56 U/L (5-31) H 12/30/23 05:50 ALT 38 U/L (0-31) H 12/30/23 05:50 Alkaline Phosphatase 96 U/L (39-117) 12/30/23 05:50 Lactate Dehydrogenase 317 U/L (122-220) H 12/30/23 05:50 Troponin I High Sens 10.3 ng/L (<3.5-17.0) 12/28/23 15:35 B-Natriuretic Peptide 862 pg/mL (<100) H 12/30/23 05:50 Total Protein 7.9 g/dL (6.5-8.0) 12/30/23 05:50 Albumin 3.2 g/dL (3.5-5.0) L 12/30/23 05:50 Lipase 25 U/L (8-78) 12/28/23 10:17 Vitamin B12 520 pg/mL (200-900) 12/31/23 05:31 Folate 9.9 ng/mL (> or = 4.0) 12/31/23 05:31 Procalcitonin 0.11 ng/mL 12/31/23 05:31 Urine Color Yellow 12/31/23 Unknown Urine Appearance Clear 12/31/23 Unknown Urine pH 6.0 (5.0-9.0) 12/31/23 Unknown Ur Specific Geff 1.015 (1.005-1.025) 12/31/23 Unknown Urine Protein Trace mg/dL (Neg-Trace) 12/31/23 Unknown Urine Glucose (UA) Negative mg/dL (Negative) 12/31/23 Unknown Urine Ketones Negative mg/dL (Negative) 12/31/23 Unknown Urine Blood Negative (Negative) 12/31/23 Unknown Urine Nitrite Negative (Negative) 12/31/23 Unknown Ur Leukocyte Esterase Trace (Negative) H 12/31/23 Unknown Urine RBC 0-2 /HPF (0-2) 12/31/23 Unknown Urine WBC 0-5 /HPF (0-5) 12/31/23 Unknown Ur Squamous Epith Cells 3-5 /HPF (0-2) 12/31/23 Unknown Urine Bacteria Trace (None Seen) 12/31/23 Unknown Hyaline Casts 0-2 /LPF (0-2) 12/31/23 Unknown Stool Occult Blood NEGATIVE (NEGATIVE) 01/01/24 Unknown Respiratory Panel Rose See Note 12/29/23 10:38 Adenovirus (Rapid PCR) Not Detected (Not Detect.) 12/29/23 10:38 B.pert (TEM-PCR) Not Detected (Not Detect.) 12/29/23 10:38 B.parapertussis DNA PCR Not Detected (Not Detect.) 12/29/23 10:38 C. pneumoniae DNA (PCR) Not Detected (Not Detect.) 12/29/23 10:38 Coronavirus OC43 (PCR) Not Detected (Not Detect.) 12/29/23 10:38 Coronavirus HKU1 (PCR) Not Detected (Not Detect.) 12/29/23 10:38 Coronavirus 229E (PCR) Not Detected (Not Detect.) 12/29/23 10:38 Coronavirus NL63 (PCR) Not Detected (Not Detect.) 12/29/23 10:38 Human Metapneumovir PCR Detected (Not Detect.) A 12/29/23 10:38 Influenza A (RT-PCR) Not Detected (Not Detect.) 12/29/23 10:38 Influenza Type A (PCR) NEGATIVE (Negative) 12/28/23 10:16 Influenza B (RT-PCR) Not Detected (Not Detect.) 12/29/23 10:38 Influenza Type B (PCR) NEGATIVE (Negative) 12/28/23 10:16 M. pneumoniae (PCR) Not Detected (Not Detect.) 12/29/23 10:38 Parainfluenza 1 (PCR) Not Detected (Not Detect.) 12/29/23 10:38 Parainfluenza 2 (PCR) Not Detected (Not Detect.) 12/29/23 10:38 Parainfluenza 3 (PCR) Not Detected (Not Detect.) 12/29/23 10:38 Parainfluenza 4 (PCR) Not Detected (Not Detect.) 12/29/23 10:38 RSV (PCR) Not Detected (Not Detect.) 12/29/23 10:38 RSV RNA Qual (PCR) NEGATIVE (Negative) 12/28/23 10:16 Entero/Rhino (PCR) Not Detected (Not Detect.) 12/29/23 10:38 SARS-CoV-2 RNA (RT-PCR) Not Detected (Not Detect.) 12/29/23 10:38 Impressions Chest X-Ray 12/28/23 10:35 IMPRESSION: Increased central bronchovascular markings, question airways disease versus mild pulmonary edema. Chest CT 12/28/23 14:34 IMPRESSION: Diffuse airways disease and lingular atelectasis or small infiltrate. Severe atherosclerotic disease and coronary artery and aortic valve calcification. 1 x 1.7 cm asymmetric density in the right lateral breast. This is not be compared with old chest CT from 2021. Correlation with physical exam and mammogram recommended. Fleischner guidelines were followed. Discharge Plan Discharge Anticipated Discharge Date/Time: 01/02/24 14:17 Patient Disposition: Home Health Service Discharge Diagnosis: atrial fibrillation hypoxia COPD exacerbation pneumonia incidental breast mass Referrals: [facility] [Provider Group] - 2 Weeks (Incidental breast mass, needs focused mammography ) [facility] [Outside] - 1 Week Brii West NP [Primary Care Provider] - 1 Week Discharge Medications: New cefdinir 300 mg capsule 300 mg PO BID Qty: 4 0RF doxycycline monohydrate 100 mg tablet 100 mg PO BID Qty: 4 0RF metoprolol succinate 100 mg Tablet Extended Release 24 Hr 100 mg PO DAILY Qty: 30 0RF Protocol: Hold for SBP/HR < HOLD for SBP < : 90 HOLD for HR < : 60 Rx Instructions: Replaces prior dose of 25 mg daily prednisone 10 mg tablet See Rx Instructions .ROUTE .COMPLEX Qty: 15 0RF Rx Instructions: 30 mg daily x 2 days, then 20 mg daily x 2 days, then 10 mg daily x 2 days, then 5 mg daily x 2 days ipratropium-albuterol 0.5 mg-3 mg(2.5 mg base)/3 mL Solution For Nebulization 3 ml inhalation RQ4H WHILE AWAKE PRN (Reason: shortness of breath or wheezing) Qty: 60 0RF Continued nitroglycerin 0.4 mg tablet, sublingual 0.4 mg sublingual Q5M PRN (Reason: chest pain) Qty: 14 2RF Rx Instructions: do not exceed 3 doses per episode amiodarone 200 mg tablet 200 mg PO DAILY Qty: 90 3RF Eliquis 2.5 mg tablet 2.5 mg PO BID 90 Days Qty: 180 2RF Hold Instructions: Resume on 11/13/23. check CBC, if stable HH may resume amlodipine 10 mg tablet 10 mg PO DAILY Qty: 30 5RF Protocol: Hold for SBP< HOLD for SBP < : 90 isosorbide mononitrate 30 mg tablet extended release 24 hr 30 mg PO DAILY Qty: 30 5RF Protocol: Hold for SBP< HOLD for SBP < : 90 furosemide 40 mg tablet 40 mg PO DAILY Qty: 90 2RF calcium carbonate-vitamin D3 600 mg-5 mcg (200 unit) tablet 1 tab PO DAILY fluoxetine 20 mg capsule 20 mg PO DAILY pravastatin 40 mg tablet 40 mg PO BEDTIME albuterol sulfate 90 mcg/actuation HFA aerosol inhaler 2 puff inhalation Q4H PRN (Reason: for wheezing) budesonide-formoterol [Symbicort] 160-4.5 mcg/actuation Hfa Aerosol Inhaler 2 puff INHALATION BID Women's One Daily 18 mg iron-400 mcg-500 mg Ca Tablet 1 tab PO DAILY memantine 10 mg tablet 10 mg PO BID alendronate 70 mg tablet 70 mg PO MO Discontinued metoprolol succinate [Toprol XL] 25 mg tablet extended release 24 hr 25 mg PO DAILY Qty: 90 3RF Discharge Orders: Discharge Order (Routine); Ordered 01/02/24 Ordered By: Alessandra Mcnair Diet: Advance to usual diet Activity on Discharge: As tolerated Stand Alone Forms: Patient Portal Discharge page Print Language: Argentine Care Plan Goals: control atrial fibrillation respiratory health Health Concerns: atrial fibrillation hypoxia COPD exacerbation pneumonia incidental breast mass Plan of Treatment: continue Eliquis continue amiodarone; increase metoprolol succinate from 25 to 100 mg daily follow up with [facility] Cardiology in 2 weeks take cefdinir 300 mg twice daily for 2 days take doxycycline 100 mg twice daily for 2 days take prednisone as follows: - 30 mg daily x 2 days - 20 mg daily x 2 days - 10 mg daily x 2 days - 5 mg daily x 2 days continue inhalers and use Duoneb updrafts as needed VNA for PT services referral to [facility] for focused mammogram of incidental breast mass Please follow up with your primary care doctor within 1 week. Return to the hospital if you experience recurrent or worsening symptoms. Assessment: See Discharge Summary.
== END 2024-01-02 17:41 | disposition home health service (06) | DRG 194 ==
LOC: HO.ED 14:53 → HO.EDOVER 17:47 → HO.S3 18:57
PROVIDERS: Physician Assistant; Admitting Provider Hospitalist; Emergency Provider Emergency Medicine; PCP Nurse Practitioner Family; Visit Provider Family Medicine
DX: J18.9 Pneumonia, unspecified organism (principal); I13.0 Hypertensive heart and chronic kidney disease with heart failure and stage 1 through stage 4 chronic kidney disease, or unspecified chronic kidney disease; I50.22 Chronic systolic (congestive) heart failure; J44.0 Chronic obstructive pulmonary disease with (acute) lower respiratory infection; J44.1 Chronic obstructive pulmonary disease with (acute) exacerbation; I48.92 Unspecified atrial flutter; I42.9 Cardiomyopathy, unspecified; J96.11 Chronic respiratory failure with hypoxia; B97.81 Human metapneumovirus as the cause of diseases classified elsewhere; N63.10 Unspecified lump in the right breast, unspecified quadrant; I48.0 Paroxysmal atrial fibrillation; D63.1 Anemia in chronic kidney disease; N18.32 Chronic kidney disease, stage 3b; I25.10 Atherosclerotic heart disease of native coronary artery without angina pectoris; Z20.822 Contact with and (suspected) exposure to COVID-19; Z99.81 Dependence on supplemental oxygen; Z87.891 Personal history of nicotine dependence; Z79.01 Long term (current) use of anticoagulants; Z79.899 Other long term (current) drug therapy
CPT/HCPCS: 0241U; 36415; 71045; 71250; 80048; 80053; 81001; 82272; 82607; 82728; 82746; 82803; 83540; 83605; 83615; 83690; 83735; 83880; 84145; 84484; 85007; 85025; 85027; 85045; 85379; 85610; 87040; 87070; 87205; 87633; 93005; 94640; 97116; 97162; 99285; J0696; J1160; J2930

== ENCOUNTER → 2023-12-28 14:51 | Outpatient (BNV) | payer OTHER, SELFPAY | PROVIDERS: Admitting Provider Hospitalist; Emergency Provider Emergency Medicine; PCP Nurse Practitioner Family; Visit Provider Internal Medicine Cardiovascular Disease | DX: R00.0 Tachycardia, unspecified (principal); I48.0 Paroxysmal atrial fibrillation | CPT/HCPCS: 93010 ==

== ENCOUNTER 2023-12-28 17:35 | Outpatient (BNV) | payer OTHER, SELFPAY | END 2023-12-29 15:50 | PROVIDERS: Admitting Provider Hospitalist; Emergency Provider Emergency Medicine; PCP Nurse Practitioner Family; Visit Provider Internal Medicine Cardiovascular Disease | DX: R00.0 Tachycardia, unspecified (principal); I48.0 Paroxysmal atrial fibrillation | CPT/HCPCS: 93010 ==

== ENCOUNTER → 2023-12-28 17:35 | Outpatient (BNV) | payer OTHER, SELFPAY | PROVIDERS: Admitting Provider Hospitalist; Emergency Provider Emergency Medicine; PCP Nurse Practitioner Family; Visit Provider Internal Medicine Cardiovascular Disease | DX: I48.0 Paroxysmal atrial fibrillation (principal); I42.9 Cardiomyopathy, unspecified | CPT/HCPCS: 99223; 99233 ==

== ENCOUNTER → 2023-12-28 17:35 | Outpatient (BNV) | payer OTHER, SELFPAY | PROVIDERS: Admitting Provider Hospitalist; Emergency Provider Emergency Medicine; PCP Nurse Practitioner Family; Visit Provider Hospitalist | DX: J44.9 Chronic obstructive pulmonary disease, unspecified (principal); J96.21 Acute and chronic respiratory failure with hypoxia; I48.0 Paroxysmal atrial fibrillation; J18.9 Pneumonia, unspecified organism; J44.1 Chronic obstructive pulmonary disease with (acute) exacerbation | CPT/HCPCS: 99223; 99232; 99239; G0180 ==

== ENCOUNTER 2024-01-09 15:24 | Outpatient (AMB) | payer MEDICARE, SELFPAY ==
--- NOTE | 2024-01-09 15:27 | A.OFFVIS_ITS ---
Intake Vital Signs 01/09/24 15:28 Height 5 ft 6 in Weight 181 lb 3 oz BMI 29.2 BP 120/64 Blood Pressure Location Rt brachial Position Sitting Pulse 87 Intake Visit Reasons: 2 mth f/up labs/ echo Odd Job Worker Required: No Accompanied by: Daughter Allergies hydrochlorothiazide [From ZESTORETIC] Allergy (Intermediate, Verified 12/28/23 10:08) FELT FAINT, syncope lisinopril [LISINOPRIL] Allergy (Intermediate, Verified 12/28/23 10:08) Cough Medication List - Last Reconciled 01/09/24 by Gary Mathew MD albuterol sulfate 90 mcg/actuation 2 puffs inhalation Q4H PRN alendronate 70 mg PO MO amiodarone 200 mg PO DAILY amlodipine 10 mg See Protocol PO DAILY apixaban (Eliquis) 2.5 mg PO BID 90 days budesonide-formoterol 160-4.5 mcg/actuation (Symbicort) 2 puffs inhalation BID calcium carbonate-vitamin D3 600 mg-5 mcg (200 unit) 1 tab PO DAILY cefdinir 300 mg PO BID doxycycline monohydrate 100 mg PO BID fluoxetine 20 mg PO DAILY furosemide 40 mg PO DAILY ipratropium-albuterol 0.5 mg-3 mg(2.5 mg base)/3 mL 3 mL inhalation Q4H PRN isosorbide mononitrate ER 30 mg See Protocol PO DAILY memantine 10 mg PO BID metoprolol succinate ER 100 mg See Protocol PO DAILY qnxgxyqa-ppdf-XF-calcium-mins 18 mg iron-400 mcg-500 mg Ca (Women's One Daily) 1 tab PO DAILY nitroglycerin 0.4 mg sublingual Q5M PRN pravastatin 40 mg PO BEDTIME HPI HPI Comments History of Present Illness Details Marge returns for follow-up regarding suspected coronary disease, cardiomyopathy, atrial fibrillation among others. She has many comorbidities and quite frail. Former smoker and also has COPD. Many hospitalizations in the last few months. Most recently with pneumonia and in that context had atrial fibrillation rapid rate. Prior to that, she had a question of GI bleed. Even earlier, she also had another hospitalization for atrial fibrillation rapid rate when she underwent cardioversion and started on amiodarone. Overall, looking quite frail. In a wheelchair. Comes with the daughter. More or less about the same as before. Lot of weakness and generalized fatigue. No clear-cut cardiac symptoms. On oxygen. [facility] Medical History (Updated 01/02/24 @ 14:37 by Alessandra Mcnair MD) Cardiomyopathy Hypoxemia Dyspnea on exertion Obesity (BMI 30-39.9) Cataract Wears dentures Use of cane as ambulatory aid Arthritis Low back pain High cholesterol HTN (hypertension) Environmental and seasonal allergies Restrictive lung disease Atherosclerotic cardiovascular disease COPD (chronic obstructive pulmonary disease) Surgical History Hx of colonoscopy History of tubal ligation History of ankle surgery History of lumpectomy of left breast Family History Father Family history of cancer Mother Colon cancer Alzheimer disease Social History Household Members: Family Household Members Other:: SON LIVES IN NEXT APARTMENT Housing: House Are you a primary post acute care registered nurse to a significant other at home: Yes (grandson age 13, son and daughter supportive) Do you presently have visiting nurse or other home services: Yes Alcohol intake: current Alcohol intake frequency: does not drink Patient Tobacco Use Status: Former Tobacco user Quit Date: 20 years ago Tobacco use type: Cigarette Advance Directives Date on File: 10/17/23 service: No Review of Systems Const Denies chills, Denies fatigue, Denies fever(s), Denies frequent falls, Denies weakness, Denies weight gain and Denies weight loss ENT Denies dizziness Card Denies chest pain, Denies leg edema, Denies lightheadedness, Denies palpitations, Denies dyspnea and Denies dyspnea on exertion Resp Denies cough, Denies dyspnea and Denies dyspnea on exertion GI Denies hematochezia Musc Denies abnormal gait, Denies muscle weakness, Denies numbness, Denies radiating pain into limb and Denies tingling Neuro Denies abnormal gait, Denies dizziness, Denies frequent falls, Denies numbness, Denies tingling and Denies weakness Endo Denies fatigue and Denies palpitations Physical Exam Vital Signs: Last Vital Signs Pulse 87 01/09/24 15:28 BP 120/64 01/09/24 15:28 BMI result Body Mass Index 29.2 Const General: comfortable, no acute distress, ill appearing and tired appearing Orientation/consciousness: patient oriented x3 HEENT Other: Unremarkable Head: Yes normal to inspection Neck Neck: Yes normal visual inspection Chest Chest palpation & inspection: normal inspection of the chest Resp Auscultation: crackles Cardio Palpation: normal PMI Heart sounds: S1 normal heart sound present, S2 normal heart sound present, no gallops, no murmurs and no rubs GI Palpation (GI): Soft to palpation Back/Spine/Pelvis Other: unremarkable Skin General skin exam: no rashes or lesions noted Neuro General: patient oriented x3 Extrem General: Yes normal to inspection Psych Mental Status: mental status grossly normal Office Procedures EKG Details: EKG with atrial fibrillation rate of 87/Min; nonspecific ST-T changes. [id number], Complete Assessment & Plan Assessment & Plan (1) Cardiomyopathy: Code(s): I42.9 - Cardiomyopathy, unspecified Plan: Most recently, LVEF is 31%. Basal inferior/inferoseptal akinesis. Suspected coronary disease based on the above. Could also have components of nonischemic cardiomyopathy from atrial fibrillation. Hypertension history may play a role. Clinically no overt heart failure. Continue diuretics. Continue beta- blockers. She already has renal insufficiency. Not on Entresto or CARL inhibitors. Otherwise, probably Jardiance or Farxiga in the future. (2) Atherosclerotic cardiovascular disease: Code(s): I25.10 - Atherosclerotic heart disease of [place] coronary artery without angina pectoris Plan: Myocardial perfusion imaging study 2020 shows probable old infarct along the inferior wall, but no ischemia. Clinically, no overt angina. In the past, we had discussed cardiac catheterization but was not interested. However, the present time, she looks too ill for that. With a history of renal insufficiency, there is a risk of contrast induced nephropathy. She also has a history of anemia/GI bleed. Hence any dual antiplatelet therapy will also be a problem. For these reasons, suspect conservative care be the best strategy for now. Daughter agrees. (3) PAF (paroxysmal atrial fibrillation): Code(s): I48.0 - Paroxysmal atrial fibrillation Plan: Status post cardioversion but she is back in atrial fibrillation in spite of being on amiodarone. With her requiring supplemental oxygen and poor pulmonary status may not be suitable for another cardioversion at this time. We can stop the amiodarone and just do rate control. Increase the beta-bernadette dose. Continue anticoagulation. (4) Essential hypertension: Code(s): I10 - Essential (primary) hypertension Plan: Hold off on amlodipine as we are increasing beta-blockers. We discussed this today. Plan Discussed with daughter. Total time spent including review of all the hospitalization records, counseling, documentation, coordination of care-50 minutes. Medications: New metoprolol succinate ER (Toprol XL) Total 150mg daily. 50 mg PO DAILY 90 tabs 3RF 90 days Discontinued amiodarone Discontinued Reason: Doctor's Order 200 mg PO DAILY 90 tabs 3RF amlodipine Discontinued Reason: Doctor's Order 10 mg See Protocol PO DAILY 30 tabs 5RF Coding Level of Care Code Est Pt Level 5 (27732) Diagnoses Cardiomyopathy I42.9 Atherosclerotic cardiovascular disease I25.10 PAF (paroxysmal atrial fibrillation) I48.0 Essential hypertension I10 CPT Codes EKG - CPT: 47812-[id number], Complete ([id number])
[2024-01-09 15:28] VITALS: BP 120/64; PULSE 87; BMI 29.2
== END 2024-01-09 16:07 | disposition home or self-care (01) ==
PROVIDERS: PCP Nurse Practitioner Family; Visit Provider Internal Medicine
DX: I42.9 Cardiomyopathy, unspecified (principal); I25.10 Atherosclerotic heart disease of native coronary artery without angina pectoris; I48.0 Paroxysmal atrial fibrillation; I10 Essential (primary) hypertension; Z98.890 Other specified postprocedural states
CPT/HCPCS: 93010; 99215

== ENCOUNTER → 2024-01-09 15:24 | Outpatient (BNVA) | payer MEDICARE, SELFPAY | PROVIDERS: PCP Nurse Practitioner Family; Visit Provider Internal Medicine | DX: I42.9 Cardiomyopathy, unspecified (principal); I25.10 Atherosclerotic heart disease of native coronary artery without angina pectoris; I48.0 Paroxysmal atrial fibrillation; I10 Essential (primary) hypertension; R94.31 Abnormal electrocardiogram [ECG] [EKG] | CPT/HCPCS: 93005; 99212 ==

== ENCOUNTER 2024-01-15 13:20 | Outpatient (AMB) | payer MEDICARE, SELFPAY ==
[2024-01-15 13:26] VITALS: BP 94/60; PULSE 96; O2SAT 96; BMI 29.0
--- NOTE | 2024-01-15 13:26 | MHC.OFFVIS ---
Vital Signs 01/15/24 13:26 Height 5 ft 6 in Weight 179 lb 10.828 oz BMI 29.0 BP 94/60 Blood Pressure Location Lt brachial Position Sitting Pulse 96 Pulse Source Pulse Oximeter Pulse Oximetry (%) 96 Oxygen Delivery Method Nasal Cannula Oxygen Flow Rate 3 Intake Visit Reasons: COPD Intake Note: pt is here for HH f/u had pneumonia x3 since September, wondering about a poc for portability. cough is garbled non-production. Engine Research Engineer Required: No Allergies hydrochlorothiazide [From ZESTORETIC] Allergy (Intermediate, Verified 01/15/24 13:54) FELT FAINT, syncope lisinopril [LISINOPRIL] Allergy (Intermediate, Verified 01/15/24 13:54) Cough Medication List - Last Reconciled 01/15/24 by Mini Martinez MD albuterol sulfate 90 mcg/actuation 2 puffs inhalation Q4H PRN alendronate 70 mg PO MO apixaban (Eliquis) 2.5 mg PO BID 90 days budesonide-formoterol 160-4.5 mcg/actuation (Symbicort) 2 puffs inhalation BID calcium carbonate-vitamin D3 600 mg-5 mcg (200 unit) 1 tab PO DAILY ferrous sulfate 325 mg PO DAILY fluoxetine 20 mg PO DAILY furosemide 40 mg PO DAILY ipratropium-albuterol 0.5 mg-3 mg(2.5 mg base)/3 mL 3 mL inhalation Q4H PRN isosorbide mononitrate ER 30 mg See Protocol PO DAILY memantine 10 mg PO BID metoprolol succinate ER 100 mg See Protocol PO DAILY metoprolol succinate ER (Toprol XL) 50 mg PO DAILY 90 days avoucins-aklx-OZ-calcium-mins 18 mg iron-400 mcg-500 mg Ca (Women's One Daily) 1 tab PO DAILY nitroglycerin 0.4 mg sublingual Q5M PRN pravastatin 40 mg PO BEDTIME Do you need a note to return to daycare/school/sports/work: No HPI HPI COPD: Details: Marge is 78 years old very pleasant female, home we have followed for chronic obstructive pulmonary disease for the past many years. Generally her COPD is controlled and stable and she is on home oxygen at 2 L/minute. She was admitted the few weeks ago with acute exacerbation of COPD due to meta pneumo virus causing acute exacerbation. She is somewhat deconditioned. She also has had atrial flutter/fibrillation with rapid ventricular response which is being treated with meds and she is on anticoagulation. Today she is here for. Follow-up after hospitalization She claims that breathing garcia she is doing. well and is stable She does use oxygen 2 L/minute continuously. She can walk with the walker but for outdoors she is brought into the office in wheelchair. She is now living with her daughter who is a registered nurse working for [employer]. The patient is still interested in going outdoors such as to the mall or and casino. And she thinks that having the POC will make her life easier. [facility] Medical History CKD (chronic kidney disease) Essential hypertension Cardiomyopathy Hypoxemia Dyspnea on exertion Obesity (BMI 30-39.9) Cataract Wears dentures Use of cane as ambulatory aid Arthritis Low back pain High cholesterol HTN (hypertension) Environmental and seasonal allergies Restrictive lung disease Atherosclerotic cardiovascular disease COPD (chronic obstructive pulmonary disease) Surgical History Hx of colonoscopy History of tubal ligation History of ankle surgery History of lumpectomy of left breast Family History Father Family history of cancer Mother Colon cancer Alzheimer disease Social History Household Members: Family Household Members Other:: SON LIVES IN NEXT APARTMENT Housing: House Are you a primary hearing care practitioner to a significant other at home: Yes (grandson age 13, son and daughter supportive) Do you presently have visiting nurse or other home services: Yes Alcohol intake: current Alcohol intake frequency: does not drink Patient Tobacco Use Status: Former Tobacco user Quit Date: 20 years ago Tobacco use type: Cigarette Advance Directives Date on File: 10/17/23 service: No Review of Systems Const All systems reviewed & are unremarkable except as noted in HPI and below Eyes Reports no additional complaints ENT Reports no additional complaints Card Denies chest pain, Denies irregular heart rhythm and Denies leg edema Resp Reports as per HPI GI Reports no additional complaints Reports no additional complaints Musc Reports back pain (MILD) Skin/Breast Reports system reviewed and no additional complaints, except as documented Neuro Reports no additional complaints and Reports memory loss (MILD) Psych Reports no additional complaints and Reports memory loss (MILD) Endo Reports no additional complaints Physical Exam Vital Signs: Last Vital Signs Pulse 96 01/15/24 13:26 BP 94/60 01/15/24 13:26 Pulse Ox 96 01/15/24 13:26 Oxygen Delivery Method Nasal Cannula 01/15/24 13:26 Oxygen Flow Rate 3 01/15/24 13:26 BMI result Body Mass Index 29.0 Const Other: Moderately overweight General: comfortable, no acute distress, alert and awake Orientation/consciousness: patient oriented x3 HEENT Head: Yes normal to inspection General nose exam: No nasal polyps present and No nasal discharge present Face and sinus: Yes sinuses nontender Mouth: oropharynx normal Throat: Yes posterior oropharynx normal Eyes General: appearance normal, both eyes and all related structures Neck Neck: Yes normal visual inspection, Yes no lymphadenopathy, Yes trachea midline and Yes no JVD Thyroid: Thyroid normal Chest Chest palpation & inspection: normal inspection of the chest, normal palpation of entire chest wall and no tenderness Resp Other: Percussion note resonant, breath sounds are distant with prolonged expiratory phase. No wheezes rhonchi or crepitations are heard on auscultation. Cardio Palpation: normal PMI Rate: regular rate Rhythm: regular rhythm Heart sounds: no gallops and no murmurs GI Palpation (GI): Soft to palpation, nontender, No hepatosplenomegaly present and no masses Auscultation: normal bowel sounds Back/Spine/Pelvis Thoracic/Lumbar Spine: thoracic and lumbar spine normal to inspection and thoraco-lumbar ROM limited Skin General skin exam: no rashes or lesions noted Neuro General: patient oriented x3 and no focal motor deficits Cranial nerves: Yes CN's II-XII intact bilaterally Extrem General: Yes normal to inspection, Yes no clubbing, cyanosis or edema and Yes no calf tenderness Psych Appearance: grossly normal and well kempt Speech and movement: Normal speech and movement present Office Procedures 6 Minute Walk Time:: 14:00 SPO2 % at rest: 94 Pulse at rest: 97 SPO2 % during excercise: 90 Pulse during excercise: 128 SPO2 % after excercise: 94 Pulse after excercise: 104 Distance in yards walked: 80 Nidhi Score: 2 Performance Observations:: Mareg walked on level ground with the assistance of a walker, she walked on room air for the entire walk. Marge maintained her SPO2 90-93% no supplemental O2 needed. [id number] - 6 Minute Walk Results Reviewed Results Reviewed: 6 minutes walk test Assessment & Plan Assessment & Plan (1) Restrictive lung disease: Comment: PATIENT DOES HAVE MODERATE RESTRICTIVE DISORDER . THIS IS PROBABLY DUE TO HER GENERAL WEEAKNESS . Code(s): J98.4 - Other disorders of lung Category: Medical Plan: HAS BEEN INSTRUCTED TO DO DEEP BREATHING EXERCISES 2 OR 3 TIMES A DAY REGULARLY. (2) COPD (chronic obstructive pulmonary disease): Comment: PATIENT DOES HAVE MODERATELY SEVERE OBSTRUCTIVE AIRWAY DISORDER PER PREVIOUS SPIROMETRY. IT IS STAYING VERY STABLE. SHE HAS RECOVERED FROM HER RECENT ACUTE EXACERBATION, AND IS DOING WELL ON HER BASELINE MEDS. Code(s): J44.9 - Chronic obstructive pulmonary disease, unspecified Category: Medical Plan: SYMBICORT 160-4.52 PUFFS B.I.D. DUONEB UPDRAFT Q 6 HOURS WHILE AWAKE. ALBUTEROL HFA 2 PUFFS Q 4-6 HOURS P.R.N. (3) Hypoxemia: Comment: PATIENT IS CASE OF NOCTURNAL HYPOXEMIA AND ALSO EXERCISE INDUCED HYPOXEMIA. NOW AFTER HER ACUTE EXACERBATION SHE IS USING O2 2 L/MINUTE THROUGHOUT THE DAY AND NIGHT. SHE WANTS TO BE GOING OUTDOORS AND WANTS TO SEE IF SHE CAN GET A LIGHTWEIGHT PORTABLE EQUIPMENT/ POC . 6 MINUTES WALK TEST BEING DONE. Code(s): R09.02 - Hypoxemia Category: Medical Plan: ADVISED TO USE OXYGEN 2 L/MINUTE AT NIGHT AND P.R.N. DURING THE DAYTIME. 6 MINUTES WALK TEST SHOWS THAT SHE DID NOT DESATURATE ON WALKING FOR 6 MINUTES. SO EXPLAINED TO THE PATIENT AND HER DAUGHTER THAT SHE DOES NOT NEED ANY PORTABLE OXYGEN, SHE CAN USE O2 2 L/MINUTE DURING THE DAYTIME IF SHE GETS TIRED AND SHORT OF BREATH. (4) Dyspnea on exertion: Comment: ACCORDING TO THE SO SHE IS THE NOTICED TO GET SHORT OF BREATH MORE EASILY ON WALKING AROUND IN THE HOUSE. Code(s): R06.09 - Other forms of dyspnea Category: Medical Plan: WALK WITH A WALKER. WALKS SLOWLY, . NO NEED TO STEWART 6 MINUTES WALK TEST SHOWS THAT SHE DOES NOT NEED PORTABLE. OXYGEN AT THIS TIME Orders: Orders AMB 6 minute walk Today R06.09 - Other forms of dyspnea Coding Level of Care Code Est Pt Level 3 (93909) Diagnoses Restrictive lung disease J98.4 COPD (chronic obstructive pulmonary disease) J44.9 Hypoxemia R09.02 Dyspnea on exertion R06.09 CPT Codes Coding ([id number])
[2024-01-15 14:17] VITALS: PULSE 97; O2SAT 94
== END 2024-01-15 14:10 | disposition home or self-care (01) ==
PROVIDERS: PCP Nurse Practitioner Family; Visit Provider Internal Medicine
DX: J98.4 Other disorders of lung (principal); J44.9 Chronic obstructive pulmonary disease, unspecified; R09.02 Hypoxemia; R06.09 Other forms of dyspnea
CPT/HCPCS: 94618; 99213

== ENCOUNTER → 2024-01-15 13:20 | Outpatient (BNVA) | payer MEDICARE, SELFPAY | PROVIDERS: PCP Nurse Practitioner Family; Visit Provider Internal Medicine | DX: J98.4 Other disorders of lung (principal); J44.9 Chronic obstructive pulmonary disease, unspecified; R09.02 Hypoxemia; R06.09 Other forms of dyspnea | CPT/HCPCS: 94618; 99212 ==

== ENCOUNTER 2024-01-29 13:51 | Outpatient (AMB) | payer OTHER, SELFPAY ==
--- NOTE | 2024-01-29 13:53 | HO.NEPHOV ---
Vital Signs 01/29/24 13:54 Height 5 ft 6 in Weight 184 lb BMI 29.7 BP 112/76 Blood Pressure Location Rt brachial Position Sitting Pulse 137 H Pulse Source Pulse Oximeter Pulse Oximetry (%) 88 L Oxygen Delivery Method Room Air Intake Visit Reasons: RADHA/ Confirmed Change Number Operator Required: No Accompanied by: Daughter Allergies hydrochlorothiazide [From ZESTORETIC] Allergy (Intermediate, Verified 01/29/24 13:56) FELT FAINT, syncope lisinopril [LISINOPRIL] Allergy (Intermediate, Verified 01/29/24 13:56) Cough HPI Comments Details: Elderly woman with mild CKD admitted for dyspnea Initially she was vigourosly diuresed Serum creatinine increased promptly with diuresis without improvement in respiratory status LAsix was hled and with cautious hydration, creatinine improved marginally She has A.Flutter with RVR and underwent cardioversion She has COPD and is being followed by She was started on nasal O2 during this hospitalization 12/03/23 Recently hospitalized for Anemia Feels better today On Lasix 40 mg QD 01/29/24 Readmitted in December for COPD EDG was done No colonoscopy HgB has drifted down to 8.9 On Iron tabs at home Diagnosed with breast mass- waiting for [facility] Medical History (Updated 01/29/24 @ 14:16 by Benson Li MD) CKD (chronic kidney disease) Essential hypertension Cardiomyopathy Hypoxemia Dyspnea on exertion Obesity (BMI 30-39.9) Cataract Wears dentures Use of cane as ambulatory aid Arthritis Low back pain High cholesterol HTN (hypertension) Environmental and seasonal allergies Restrictive lung disease Atherosclerotic cardiovascular disease COPD (chronic obstructive pulmonary disease) Surgical History Hx of colonoscopy History of tubal ligation History of ankle surgery History of lumpectomy of left breast Family History Father Family history of cancer Mother Colon cancer Alzheimer disease Social History Household Members: Family Household Members Other:: SON LIVES IN NEXT APARTMENT Housing: House Are you a primary campground caretaker to a significant other at home: Yes (grandson age 13, son and daughter supportive) Do you presently have visiting nurse or other home services: Yes Alcohol intake: current Alcohol intake frequency: does not drink Patient Tobacco Use Status: Former Tobacco user Quit Date: 20 years ago Tobacco use type: Cigarette Advance Directives Date on File: 10/17/23 service: No Physical Exam Vital Signs: Last Vital Signs Pulse 137 H 01/29/24 13:54 BP 112/76 01/29/24 13:54 Pulse Ox 88 L 01/29/24 13:54 Oxygen Delivery Method Room Air 01/29/24 13:54 BMI result Body Mass Index 29.7 Awake. Comfortable. Neck is supple. Mucosa moist. Lungs bilateral scattered rhonchi. Heart S1-S2 heard no gallop. Abdomen soft. Extremities no edema. No involuntary movements. No myoclonus. Results Reviewed Nephrology Results: Hgb 9.6 g/dl (12.0-16.0) L 01/29/24 WBC 17.3 X10*3/uL (4.8-10.8) H 01/29/24 Plt Count 431 X10*3/uL (160-400) H 01/29/24 Sodium 142 mmol/L (135-145) 01/29/24 Potassium 3.9 mmol/L (3.3-5.1) 01/29/24 Chloride 101 mmol/L (96-108) 01/29/24 Carbon Dioxide 29 mmol/L (22-29) 01/29/24 BUN 35 mg/dL (9-16) H 01/29/24 Creatinine 1.41 mg/dL (0.5-1.4) H 01/29/24 Calcium 9.1 mg/dL (8.4-10.2) 01/29/24 Urine Protein Trace mg/dL (Neg-Trace) 12/31/23 Assessment & Plan Assessment & Plan (1) RADHA (acute kidney injury): Code(s): N17.9 - Acute kidney failure, unspecified Category: Medical (2) CKD (chronic kidney disease): Code(s): N18.9 - Chronic kidney disease, unspecified Category: Medical Qualifiers: Chronic kidney disease stage: stage 3 (moderate) Chronic kidney disease stage 3 subtype: stage 3b (GFR 30-44) Qualified Code(s): N18.32 - Chronic kidney disease, stage 3b (3) Anemia: Code(s): D64.9 - Anemia, unspecified Category: Medical Plan Elderly woman with COPD and a.flutter s/p cardioversion sustained RADHA due to hypoperfusion from aggressive diuresis Clinically appears euvolemic today Currently on Lasix 40 mg QD BP is acceptable Goal is to slow the progression of kidney disease Keep on low salt diet Continue to avoid nephrotoxins Anemia Multifactorial HCT has dropped Recheck Iron and Hgb and reassess for Epogen Orders: Orders Basic Metabolic Panel 01/29/24 D64.9 - Anemia, unspecified, N18.32 - Chronic kidney disease, stage 3b IRON PROFILE 01/29/24 D64.9 - Anemia, unspecified, N18.32 - Chronic kidney disease, stage 3b, N18.5 - Chronic kidney disease, stage 5 Complete Blood Count Auto Diff 01/29/24 D64.9 - Anemia, unspecified, N18.30 - Chronic kidney disease, stage 3 unspecified, N18.32 - Chronic kidney disease, stage 3b Coding Level of Care Code Est Pt Level 4 (51799) Diagnoses RADHA (acute kidney injury) N17.9 Stage 3b chronic kidney disease N18.32 Chronic kidney disease stage: stage 3 (moderate) Chronic kidney disease stage 3 subtype: stage 3b (GFR 30-44) Anemia D64.9
[2024-01-29 13:54] VITALS: BP 112/76; PULSE 137; O2SAT 88; BMI 29.7
== END 2024-01-29 14:19 | disposition home or self-care (01) ==
PROVIDERS: PCP Nurse Practitioner Family; Visit Provider Internal Medicine Hypertension Specialist
DX: N17.9 Acute kidney failure, unspecified (principal); N18.32 Chronic kidney disease, stage 3b; D64.9 Anemia, unspecified
CPT/HCPCS: 99214

== ENCOUNTER 2024-01-29 13:51 | Outpatient (REF) | payer OTHER, SELFPAY | END 2024-01-29 13:52 | disposition home or self-care (01) | LOC: HO.LAB 13:51 | PROVIDERS: PCP Nurse Practitioner Family; Visit Provider Internal Medicine Hypertension Specialist | DX: Z13.89 Encounter for screening for other disorder (principal) | CPT/HCPCS: 99212 ==

== ENCOUNTER 2024-01-29 14:41 | Outpatient (REF) | payer OTHER, SELFPAY ==
[2024-01-29 15:43] LABS: Hematocrit 30.6 % (37.0-47.0); Hemoglobin 9.6 g/dl (12.0-16.0); Mean Corpuscular HGB Conc 31.4 g/dl (31.0-35.0); Mean Corpuscular Hemoglobin 29.3 pg (27.0-33.0); Mean Corpuscular Volume 93.3 fL (80.0-98.0); Mean Platelet Volume 9.6 fL (9.4-12.3); Platelet Count 431 X10*3/uL (160-400); Red Blood Count 3.28 X10*6/uL (4.20-5.50); Red Cell Distribution Width 18.2 % (11.0-16.0); White Blood Count 17.3 X10*3/uL (4.8-10.8)
[2024-01-29 16:32] LABS: Anion Gap 16 (12-20); Blood Urea Nitrogen 35 mg/dL (9-16); Calcium 9.1 mg/dL (8.4-10.2); Carbon Dioxide 29 mmol/L (22-29); Chloride 101 mmol/L (96-108); Estimated Glomerular Filt Rate 36; Glucose Random 166 mg/dL (60-115); Iron 80 mcg/dL (30-160); Percent Iron Saturation 28 % (15-50); Potassium 3.9 mmol/L (3.3-5.1); Sodium 142 mmol/L (135-145); Total Iron Binding Capacity 288 mcg/dL (228-428); Unsaturated Iron Binding 208 ug/dL
[2024-01-29 16:47] LABS: Band Neutrophils Percent 2 % (3-5); Lymphocytes Absolute Manual 1.7 X10*3/uL (1.2-4.9); Lymphocytes Percent Manual 10 % (20-40); Metamyelocytes Absolute 0.3 X10*3/uL; Metamyelocytes Percent 2 %; Monocytes Absolute Manual 0.3 X10*3/uL (0.1-1.2); Monocytes Percent Manual 2 % (2-11); Myelocytes Absolute 0.2 X10*/uL; Myelocytes Percent 1 %; Neutrophils Absolute Manual 14.7 X10*3/uL (2.0-8.3); Neutrophils Percent Manual 83 % (45-73); RBC Morphology NOTED
[2024-01-29 16:48] LABS: Large Platelet PRESENT; Platelet Estimate SLIGHTLY INCREASED (NORMAL); Platelet Morphology Comment NOTED
[2024-01-29 16:49] LABS: Ovalocytes 2+ (15-30) /OIF; Target Cells 1+ (5-14) /OIF; Toxic Granulation PRESENT
== END 2024-01-29 14:42 | disposition home or self-care (01) ==
LOC: HO.LAB 14:41
PROVIDERS: Visit Provider Internal Medicine Hypertension Specialist
DX: N17.9 Acute kidney failure, unspecified (principal); N18.32 Chronic kidney disease, stage 3b; D64.9 Anemia, unspecified
CPT/HCPCS: 36415; 80048; 83540; 85007; 85027; 99212

== ENCOUNTER 2024-02-04 13:18 | Outpatient (REF) | payer OTHER, SELFPAY ==
--- NOTE | ~2024-02-04 | US_ITS ---
EXAMINATION: MM DIAGNOSTIC DIGITAL BREAST TOMOSYNTHESIS, BILATERAL US BREAST LIMITED, RIGHT MAMMOGRAPHY: CLINICAL INFORMATION: The patient presents for evaluation of a laterally located right breast mass on recent CT scan and 4 annual screening mammography of the left breast. COMPARISON: Mammography: This study is compared with prior mammograms dating back to 2019. TECHNIQUE: Digital breast tomosynthesis is performed in both the craniocaudal and mediolateral oblique views along with computer-aided detection (CAD). Synthesized 2D images are generated from the tomosynthesis. A full lateral view of the right breast is obtained. FINDINGS: There are scattered areas of fibroglandular density (ACR BI-RADS breast composition Category b). There are no significant masses, abnormal calcifications, or other abnormalities. ULTRASOUND: CLINICAL INFORMATION: The patient presents for evaluation of a laterally located right breast mass on recent CT scan and 4 annual screening mammography of the left breast. COMPARISON: None TECHNIQUE: Targeted sonographic evaluation was performed using a high frequency linear transducer. Selected archived documentation. FINDINGS: RIGHT BREAST: Targeted sonography of the lateral aspect of the right breast reveals no abnormalities. US/US breast RT limited mamm only IMPRESSION: No mammographic evidence of malignancy. OVERALL ASSESSMENT: Mammography: BI-RADS 1 - Negative Ultrasound: BI-RADS 1 - Negative RECOMMENDATION: 1 year F/U Results were provided to the patient at time of visit by the technologist. This patient's information was entered into a reminder system with a target due date for their next mammogram.
== END 2024-02-04 13:19 | disposition home or self-care (01) ==
LOC: HO.MAMMO 13:18
PROVIDERS: PCP Nurse Practitioner Family; Visit Provider Nurse Practitioner Family
DX: R92.8 Other abnormal and inconclusive findings on diagnostic imaging of breast (principal)
CPT/HCPCS: 76642; 77062; 77066

== ENCOUNTER → 2024-02-04 13:30 | Outpatient (BNV) | payer OTHER, SELFPAY | PROVIDERS: PCP Nurse Practitioner Family; Visit Provider Radiology Diagnostic Radiology | DX: Z12.31 Encounter for screening mammogram for malignant neoplasm of breast (principal); N63.10 Unspecified lump in the right breast, unspecified quadrant | CPT/HCPCS: 76642; 77063; 77067 ==

== ENCOUNTER 2024-03-03 14:34 | Outpatient (REF) | payer OTHER, SELFPAY ==
[2024-03-03 15:34] LABS: MANUAL DIFF FLAG NO
[2024-03-03 15:54] LABS: Basophils Absolute Auto 0.1 X10*3/uL (0.0-0.2); Basophils Percent Auto 0.5 % (0-2); Eosinophils Absolute Auto 0.2 X10*3/uL (0.0-0.4); Eosinophils Percent Auto 2.2 % (0-4); Hematocrit 34.4 % (37.0-47.0); Hemoglobin 10.9 g/dl (12.0-16.0); Imm Gran Abs Auto 0.09 X10*3/uL (0.00-0.03); Imm Gran Pct Auto 0.9 % (0.0-0.4); Lymphocytes Absolute Auto 2.6 X10*3/uL (1.2-4.9); Lymphocytes Percent Auto 26.4 % (20-40); Mean Corpuscular HGB Conc 31.7 g/dl (31.0-35.0); Mean Corpuscular Hemoglobin 29.9 pg (27.0-33.0); Mean Corpuscular Volume 94.5 fL (80.0-98.0); Mean Platelet Volume 9.5 fL (9.4-12.3); Monocytes Percent Auto 9.6 % (2-11); Neutrophils Percent Auto 60.4 % (45-73); Platelet Count 291 X10*3/uL (160-400); Red Blood Count 3.64 X10*6/uL (4.20-5.50); Red Cell Distribution Width 15.4 % (11.0-16.0); White Blood Count 9.9 X10*3/uL (4.8-10.8)
[2024-03-03 16:22] LABS: Anion Gap 11 (12-20); Blood Urea Nitrogen 23 mg/dL (9-16); Calcium 9.3 mg/dL (8.4-10.2); Carbon Dioxide 31 mmol/L (22-29); Chloride 103 mmol/L (96-108); Estimated Glomerular Filt Rate 35; Glucose Random 117 mg/dL (60-115); Potassium 4.3 mmol/L (3.3-5.1); Sodium 141 mmol/L (135-145)
== END 2024-03-03 14:35 | disposition home or self-care (01) ==
LOC: HO.LAB 14:34
PROVIDERS: PCP Nurse Practitioner Family; Visit Provider Internal Medicine Hypertension Specialist
DX: N18.32 Chronic kidney disease, stage 3b (principal); N17.9 Acute kidney failure, unspecified; D63.1 Anemia in chronic kidney disease
CPT/HCPCS: 36415; 80048; 85025; 99212

== ENCOUNTER 2024-03-03 14:34 | Outpatient (AMB) | payer OTHER, SELFPAY ==
[2024-03-03 14:36] VITALS: BP 112/72; PULSE 97; O2SAT 113; BMI 29.9
--- NOTE | 2024-03-03 14:36 | HO.NEPHOV ---
Vital Signs 03/03/24 14:36 Height 5 ft 6 in Weight 185 lb BMI 29.9 BP 112/72 Blood Pressure Location Rt brachial Position Sitting Pulse 97 Pulse Source Pulse Oximeter Pulse Oximetry (%) 113 H Oxygen Delivery Method Room Air Intake Visit Reasons: February/ Conf w/daughter [employer] Required: No Accompanied by: Daughter Allergies hydrochlorothiazide [From ZESTORETIC] Allergy (Intermediate, Verified 03/03/24 14:39) FELT FAINT, syncope lisinopril [LISINOPRIL] Allergy (Intermediate, Verified 03/03/24 14:39) Cough HPI Comments Details: Elderly woman with mild CKD admitted for dyspnea Initially she was vigourosly diuresed Serum creatinine increased promptly with diuresis without improvement in respiratory status LAsix was hled and with cautious hydration, creatinine improved marginally She has A.Flutter with RVR and underwent cardioversion She has COPD and is being followed by She was started on nasal O2 during this hospitalization 12/03/23 Recently hospitalized for Anemia Feels better today On Lasix 40 mg QD 01/29/24 Readmitted in December for COPD EDG was done No colonoscopy HgB has drifted down to 8.9 On Iron tabs at home [facility] Medical History (Updated 01/29/24 @ 14:16 by Benson Li MD) CKD (chronic kidney disease) Essential hypertension Cardiomyopathy Hypoxemia Dyspnea on exertion Obesity (BMI 30-39.9) Cataract Wears dentures Use of cane as ambulatory aid Arthritis Low back pain High cholesterol HTN (hypertension) Environmental and seasonal allergies Restrictive lung disease Atherosclerotic cardiovascular disease COPD (chronic obstructive pulmonary disease) Surgical History Hx of colonoscopy History of tubal ligation History of ankle surgery History of lumpectomy of left breast Family History Father Family history of cancer Mother Colon cancer Alzheimer disease Social History Household Members: Family Household Members Other:: SON LIVES IN NEXT APARTMENT Housing: House Are you a primary manager home healthcare to a significant other at home: Yes (grandson age 13, son and daughter supportive) Do you presently have visiting nurse or other home services: Yes Alcohol intake: current Alcohol intake frequency: does not drink Patient Tobacco Use Status: Former Tobacco user Tobacco use type: Cigarette Advance Directives Date on File: 10/17/23 service: No Physical Exam Vital Signs: Last Vital Signs Pulse 97 03/03/24 14:36 BP 112/72 03/03/24 14:36 Pulse Ox 113 H 03/03/24 14:36 Oxygen Delivery Method Room Air 03/03/24 14:36 BMI result Body Mass Index 29.9 Awake. Comfortable. Neck is supple. Mucosa moist. Lungs bilateral scattered rhonchi. Heart S1-S2 heard no gallop. Abdomen soft. Extremities no edema. No involuntary movements. No myoclonus. Results Reviewed Nephrology Results: Hgb 10.9 g/dl (12.0-16.0) L 03/03/24 WBC 9.9 X10*3/uL (4.8-10.8) 03/03/24 Plt Count 291 X10*3/uL (160-400) 03/03/24 Sodium 141 mmol/L (135-145) 03/03/24 Potassium 4.3 mmol/L (3.3-5.1) 03/03/24 Chloride 103 mmol/L (96-108) 03/03/24 Carbon Dioxide 31 mmol/L (22-29) H 03/03/24 BUN 23 mg/dL (9-16) H 03/03/24 Creatinine 1.44 mg/dL (0.5-1.4) H 03/03/24 Calcium 9.3 mg/dL (8.4-10.2) 03/03/24 Assessment & Plan Assessment & Plan (1) RADHA (acute kidney injury): Code(s): N17.9 - Acute kidney failure, unspecified Category: Medical (2) CKD (chronic kidney disease): Code(s): N18.9 - Chronic kidney disease, unspecified Category: Medical Qualifiers: Chronic kidney disease stage: stage 3 (moderate) Chronic kidney disease stage 3 subtype: stage 3b (GFR 30-44) Qualified Code(s): N18.32 - Chronic kidney disease, stage 3b (3) Anemia: Code(s): D64.9 - Anemia, unspecified Category: Medical Plan Elderly woman with COPD and a.flutter s/p cardioversion sustained RADHA due to hypoperfusion from aggressive diuresis Clinically appears euvolemic today Currently on Lasix 40 mg QD BP is acceptable Goal is to slow the progression of kidney disease Keep on low salt diet Continue to avoid nephrotoxins Anemia Multifactorial HCT has improved Coding Level of Care Code Est Pt Level 4 (80131) Diagnoses RADHA (acute kidney injury) N17.9 Stage 3b chronic kidney disease N18.32 Chronic kidney disease stage: stage 3 (moderate) Chronic kidney disease stage 3 subtype: stage 3b (GFR 30-44) Anemia D64.9
== END 2024-03-03 15:00 | disposition home or self-care (01) ==
PROVIDERS: PCP Nurse Practitioner Family; Visit Provider Internal Medicine Hypertension Specialist
DX: N17.9 Acute kidney failure, unspecified (principal); N18.32 Chronic kidney disease, stage 3b; D64.9 Anemia, unspecified
CPT/HCPCS: 99214

== ENCOUNTER 2024-03-12 14:46 | Outpatient (AMB) | payer MEDICARE, SELFPAY ==
--- NOTE | 2024-03-12 14:49 | MHC.OFFVIS ---
Vital Signs 03/12/24 14:51 Height 5 ft 6 in Weight 180 lb 12.465 oz BMI 29.2 BP 110/60 Blood Pressure Location Lt brachial Position Sitting Pulse 110 H Pulse Source Monitor Intake Visit Reasons: 2 mth f/up Allergies hydrochlorothiazide [From ZESTORETIC] Allergy (Intermediate, Verified 03/03/24 14:39) FELT FAINT, syncope lisinopril [LISINOPRIL] Allergy (Intermediate, Verified 03/03/24 14:39) Cough Medication List - Last Reconciled 03/12/24 by Gary Mathew MD albuterol sulfate 90 mcg/actuation 2 puffs inhalation Q4-6H PRN alendronate 70 mg PO MO apixaban (Eliquis) 2.5 mg PO BID 90 days benzonatate 200 mg PO ONCE PRN budesonide-formoterol 160-4.5 mcg/actuation (Symbicort) 2 puffs inhalation ONCE calcium carbonate-vitamin D3 600 mg-5 mcg (200 unit) 1 tab PO DAILY ferrous sulfate 325 mg PO DAILY fluoxetine 20 mg PO DAILY furosemide 40 mg PO DAILY guaifenesin 400 mg PO QID ipratropium-albuterol 0.5 mg-3 mg(2.5 mg base)/3 mL 3 mL inhalation Q4H PRN isosorbide mononitrate ER 30 mg See Protocol PO DAILY memantine 10 mg PO BID metoprolol succinate ER (Toprol XL) 50 mg PO DAILY 30 days metoprolol succinate ER 100 mg See Protocol PO DAILY jdszkhdr-lrep-WZ-calcium-mins 18 mg iron-400 mcg-500 mg Ca (Women's One Daily) 1 tab PO DAILY nitroglycerin 0.4 mg sublingual Q5M PRN pravastatin 40 mg PO BEDTIME prednisone 20 mg PO BID HPI Comments Details: Marge returns for follow-up regarding suspected coronary disease, cardiomyopathy, atrial fibrillation among others. She has many comorbidities and quite frail. Former smoker and also has COPD. Many hospitalizations in the last few months. Most recently with pneumonia and in that context had atrial fibrillation with rapid rate. Prior to that, she had a question of GI bleed. Even earlier, she also had another hospitalization for atrial fibrillation rapid rate when she underwent cardioversion and started on amiodarone. Continues to be frail but slightly better than before. Still in a wheelchair. No recent hospitalizations after the last visit. More or less feels the same. Some shortness of breath with activity but could be multifactorial as she has numerous issues as listed above. She does not feel atrial fibrillation as much. [facility] Medical History (Updated 03/12/24 @ 14:58 by Gary Mathew MD) CKD (chronic kidney disease) Essential hypertension Cardiomyopathy Hypoxemia Dyspnea on exertion Obesity (BMI 30-39.9) Cataract Wears dentures Use of cane as ambulatory aid Arthritis Low back pain High cholesterol HTN (hypertension) Environmental and seasonal allergies Restrictive lung disease Atherosclerotic cardiovascular disease COPD (chronic obstructive pulmonary disease) Surgical History Hx of colonoscopy History of tubal ligation History of ankle surgery History of lumpectomy of left breast Family History Father Family history of cancer Mother Colon cancer Alzheimer disease Social History Household Members: Family Household Members Other:: SON LIVES IN NEXT APARTMENT Housing: House Are you a primary geriatric personal care aide to a significant other at home: Yes (grandson age 13, son and daughter supportive) Do you presently have visiting nurse or other home services: Yes Alcohol intake: current Alcohol intake frequency: does not drink Patient Tobacco Use Status: Former Tobacco user Tobacco use type: Cigarette Advance Directives Date on File: 10/17/23 service: No Review of Systems Const Denies weakness ENT Denies dizziness Card Reports chest pain, Reports chest pain at rest, Denies chest pain with activity, Denies syncope, Denies rapid heart rate, Denies pedal edema, Denies edema, Denies leg edema, Denies lightheadedness, Denies palpitations, Denies dyspnea, Denies dyspnea on exertion and Denies orthopnea Resp Denies cough, Denies dyspnea and Denies dyspnea on exertion GI Denies hematochezia and Denies change in stool character Musc Denies abnormal gait, Denies muscle cramps, Denies muscle weakness, Denies numbness, Denies radiating pain into limb and Denies tingling Neuro Denies abnormal gait, Denies dizziness, Denies syncope, Denies numbness, Denies tingling and Denies weakness Endo Denies palpitations Physical Exam Vital Signs: Last Vital Signs Pulse 110 H 03/12/24 14:51 BP 110/60 03/12/24 14:51 BMI result Body Mass Index 29.2 Const General: comfortable, no acute distress, ill appearing and tired appearing Orientation/consciousness: patient oriented x3 HEENT Other: Unremarkable Head: Yes normal to inspection Neck Neck: Yes normal visual inspection Chest Chest palpation & inspection: normal inspection of the chest Resp Auscultation: crackles Cardio Palpation: normal PMI Heart sounds: S1 normal heart sound present, S2 normal heart sound present, no gallops, no murmurs and no rubs GI Palpation (GI): Soft to palpation Back/Spine/Pelvis Other: unremarkable Skin General skin exam: no rashes or lesions noted Neuro General: patient oriented x3 Extrem General: Yes normal to inspection Psych Mental Status: mental status grossly normal Office Procedures EKG Details: EKG with atrial fibrillation at a rate of 110/Min; inferior as well as anterolateral ST depressions. [id number], Complete Assessment & Plan Assessment & Plan (1) PAF (paroxysmal atrial fibrillation): Code(s): I48.0 - Paroxysmal atrial fibrillation Category: Medical Plan: She underwent cardioversion in the past but went back into atrial fibrillation spite of being on amiodarone. Mainly because of other comorbidities. She was taken off the amiodarone and managed by rate control, but it does not look like her heart is slowing down. We can re-attempt another cardioversion after reloading with amiodarone. Continue anticoagulation. Discussed with daughter. She agrees. (2) Cardiomyopathy: Code(s): I42.9 - Cardiomyopathy, unspecified Category: Medical Qualifiers: Cardiomyopathy type: unspecified Qualified Code(s): I42.9 - Cardiomyopathy, unspecified Plan: Most recently, LVEF is 31%. Basal inferior/inferoseptal akinesis. Suspected coronary disease based on the above. Could also have components of nonischemic cardiomyopathy from atrial fibrillation. Hypertension history may play a role. Clinically no overt heart failure. Continue diuretics. Continue beta-blockers. She already has renal insufficiency. Not on Entresto or CARL inhibitors. Otherwise, probably Jardiance or Farxiga in the future. (3) Atherosclerotic cardiovascular disease: Code(s): I25.10 - Atherosclerotic heart disease of [place] coronary artery without angina pectoris Category: Medical Plan: Myocardial perfusion imaging study 2019 shows probable old infarct along the inferior wall, but no ischemia. Clinically, no overt angina. We have discussed about cardiac catheterization many times but she was not interested initially but then she became quite frail and had many issues including GI bleed extra. We again discussed this today. Possibly a diagnostic catheterization once she is 4 weeks after cardioversion. To be decided. (4) Essential hypertension: Code(s): I10 - Essential (primary) hypertension Category: Medical Plan: Stable. Plan Discussed with daughter. Medications: New amiodarone followed by 200mg daily. 400 mg (2 x 200 mg) PO DAILY 28 tabs 0RF 14 days amiodarone start after loading dose 200 mg PO DAILY 90 tabs 3RF 90 days Coding Level of Care Code Est Pt Level 4 (99703) Diagnoses PAF (paroxysmal atrial fibrillation) I48.0 Cardiomyopathy, unspecified type I42.9 Cardiomyopathy type: unspecified Atherosclerotic cardiovascular disease I25.10 Essential hypertension I10 CPT Codes EKG - CPT: 58377-[id number], Complete ([id number])
[2024-03-12 14:51] VITALS: BP 110/60; PULSE 110; BMI 29.2
== END 2024-03-12 15:35 | disposition home or self-care (01) ==
PROVIDERS: PCP Nurse Practitioner Family; Visit Provider Internal Medicine
DX: I48.0 Paroxysmal atrial fibrillation (principal); I42.9 Cardiomyopathy, unspecified; I25.10 Atherosclerotic heart disease of native coronary artery without angina pectoris; I10 Essential (primary) hypertension
CPT/HCPCS: 93010; 99214

== ENCOUNTER → 2024-03-12 14:46 | Outpatient (BNVA) | payer MEDICARE, SELFPAY | PROVIDERS: PCP Nurse Practitioner Family; Visit Provider Internal Medicine | DX: I48.0 Paroxysmal atrial fibrillation (principal); I42.9 Cardiomyopathy, unspecified; I25.10 Atherosclerotic heart disease of native coronary artery without angina pectoris; I10 Essential (primary) hypertension | CPT/HCPCS: 93005; 99212 ==

== ENCOUNTER 2024-03-26 08:00 | Day surgery (SDC) | payer OTHER, SELFPAY ==
[2024-03-26] VITALS (8 sets, daily range): BP systolic 98–143; BP diastolic 41–75; PULSE 52–103; RESP 16–18; TEMP 36.1–36.6; O2SAT 94–98; BMI 28.6
--- NOTE | 2024-03-26 08:43 | MHC.SHP ---
Pre-Procedural Eval Section A - 24 Hr Update-Section A only Date of Service: 03/26/24 The patient is an INPATIENT: No Section B - Complete if H&P > 30 days Chief Complaint: Paroxysmal atrial fibrillation Allergies: Allergies Allergy/AdvReac Type Severity Reaction Status Date / Time hydrochlorothiazide Allergy Intermediate FELT Verified 03/26/24 08:28 [From ZESTORETIC] FAINT, syncope lisinopril [LISINOPRIL] Allergy Intermediate Cough Verified 03/26/24 08:28 Plan I have reviewed the history and physical and performed a pertinent physical examination on my patient. No changes have occurred unless specified. Time Spent With Patient Time: Total time managing care of this patient today ____ minutes.
--- NOTE | 2024-03-26 08:43 | HO.CARDIVERS ---
Cardioversion Procedure Note Cardioversion Date of Procedure: 03/26/2024 Pre-Op Diagnosis: Atrial fibrillation Post-Op Diagnosis: Sinus rhythm Consent: Informed consent obtained Procedure: After informed consent was obtained, patient was taken to the PACU. The patient was then positioned appropriately. The cardioversion pads were placed in anteroposterior position. Once under anesthesia, 120 joules of synchronized shock was administered. The rhythm converted from atrial fibrillation to sinus rhythm. Patient remained in sinus rhythm after the end of procedure. Complications: None Impression: Successful cardioversion. Recommendations: Due to sinus bradycardia, hold beta-blockers. Continue amiodarone. Continue anticoagulation. Follow up in clinic.
[2024-03-26] MEDS: Albuterol Sulfate (0.083%) 2.5 MG/3 ML VIAL.NEB INHALE (09:09)
[2024-03-26] MEDS: Lactated Ringers 1,000 ML 50 ML IVCONT (09:14)
--- NOTE | 2024-03-26 09:45 | P.CONAN_ITS ---
HPI - Anesthesia Eval Consult details Narrative: 79 yo F presenting for CV PMFSH Active Problems Active Problems: All Active Problems (Updated 03/12/24 @ 14:58 by Gary Mathew MD) Anemia (Acute) COPD exacerbation (Acute) Acute on chronic hypoxic respiratory failure (Acute) PAF (paroxysmal atrial fibrillation) (Acute) Acute hypoxemic respiratory failure (Acute) Breast mass, right (Acute) Pneumonia (Acute) Elevated troponin (Acute) Atrial flutter with rapid ventricular response (Acute) Atrial flutter (Acute) Chest pain (Acute) PVC (premature ventricular contraction) (Acute) Malignant neoplasm of upper-outer quadrant of left female breast (Acute) CKD (chronic kidney disease) (Acute) Hypoxemia (Acute) Dyspnea on exertion (Acute) Obesity (BMI 30-39.9) (Acute) Restrictive lung disease (Acute) COPD (chronic obstructive pulmonary disease) (Acute) Past Medical History Medical History CKD (chronic kidney disease) Hypoxemia Dyspnea on exertion Cardiomyopathy Obesity (BMI 30-39.9) Cataract Wears dentures Use of cane as ambulatory aid Arthritis Low back pain High cholesterol HTN (hypertension) Environmental and seasonal allergies Restrictive lung disease Essential hypertension Atherosclerotic cardiovascular disease COPD (chronic obstructive pulmonary disease) Family History Family History Father Family history of cancer Mother Colon cancer Alzheimer disease Family history of problems with anesthesia: No Surgical History Surgical History (Updated 03/26/24 @ 08:23 by Cookie Gonsalves RN) History of esophagogastroduodenoscopy (EGD) Hx of colonoscopy History of tubal ligation History of ankle surgery History of lumpectomy of left breast History of Problems with Anesthesia: No Social History Social History Household Members: Family Household Members Other:: SON LIVES IN NEXT APARTMENT Housing: House Are you a primary lawn care professional to a significant other at home: Yes (grandson age 13, son and daughter supportive) Do you presently have visiting nurse or other home services: Yes Alcohol intake: current Alcohol intake frequency: does not drink Patient Tobacco Use Status: Former Tobacco user Tobacco use type: Cigarette Use of substances other than those prescribed or required for medical reasons: No Are you DNR?: No Advance Directives: No Advance Directives Information Provided: Yes Advance Directives Date on File: 10/17/23 service: No Meds Allergies Allergy/AdvReac Type Severity Reaction Status Date / Time hydrochlorothiazide Allergy Intermediate FELT Verified 03/26/24 08:28 [From ZESTORETIC] FAINT, syncope lisinopril [LISINOPRIL] Allergy Intermediate Cough Verified 03/26/24 08:28 Active Medications: Current Medications Lactated Ringer's (Lr) 1,000 mls @ 50 mls/hr IVCONT .Q20H GUSTAVO Last Admin: 03/26/24 09:14 Dose: 50 mls/hr Home Medications ?Medication ?Instructions ?Recorded ?Confirmed ?Last Taken ?Type memantine 10 mg tablet 10 mg PO BID 11/25/20 03/26/24 03/26/24 06:45 History alendronate 70 mg tablet 70 mg PO MO 12/04/22 03/26/24 12/24/23 History calcium carbonate 600 mg-vitamin 1 tab PO DAILY 10/12/23 03/26/24 12/28/23 History D3 5 mcg (200 unit) tablet fluoxetine 20 mg capsule 20 mg PO DAILY 10/12/23 03/26/24 03/26/24 06:45 History pravastatin 40 mg tablet 40 mg PO BEDTIME 11/01/23 03/26/24 12/27/23 History multivit-iron 18 mg-folic acid 400 1 tab PO DAILY 12/28/23 03/26/24 12/27/23 History mcg-calcium 500 mg-minerals tablet (Women's One Daily) ferrous sulfate 325 mg (65 mg 325 mg PO DAILY 01/15/24 03/26/24 Unknown History iron) tablet,delayed release benzonatate 200 mg capsule 200 mg PO ONCE PRN Cough 01/29/24 03/26/24 Unknown History budesonide-formoterol HFA 160 2 puff inhalation ONCE 01/29/24 03/26/24 Unknown History mcg-4.5 mcg/actuation aerosol inhaler (Symbicort) guaifenesin 400 mg tablet 400 mg PO QID 01/29/24 03/26/24 Unknown History Exam Exam Date and Time: March 26, 2024 0945 Height,Weight and Vital Signs: Height 5 ft 6 in Weight 80.286 kg Last Vital Signs Temp 97.8 F 03/26/24 09:58 Pulse 53 03/26/24 09:58 Resp 16 03/26/24 09:58 BP 98/41 L 03/26/24 09:58 Pulse Ox 95 03/26/24 09:58 O2 Del Method Nasal Cannula with Capnography 03/26/24 09:58 O2 Flow Rate 6 03/26/24 09:58 Airway Mallampati Class: I TM Dist: >3cm Neck ROM: Full Denture: Upper Heart: S1S2 Lungs: Bilateral expiratory wheezes s/p respiratory treatment Assessment and Plan Assessment Anesthesia Assessment: Anesthesia Plan Discussed and Chart Reviewed Final Anesthetic Review Family History of Problems with Anesthesia: No History of Problems with Anesthesia: No NPO: Yes ASA Class: IV Final Preanesthetic Review: No Changes in Pt Med Stat, Meds/Allgs Chart Reviewed, Consent Obtained/Reviewed and Anes Risks/Benef Reviewed Patient Risk: High Procedure Risk: High Anesthetic Plan Anesthetic Plan: MAC: and Agree w/ Assess. and Plan Disposition: Standard PACU
--- NOTE | 2024-03-26 09:56 | ECG_ITS ---
Test Reason : pre op Blood Pressure : / mmHG Vent. Rate : 053 BPM Atrial Rate : 053 BPM P-R Int : 206 ms QRS Dur : 088 ms QT Int : 518 ms P-R-T Axes : 076 050 133 degrees QTc Int : 486 ms Sinus bradycardia with occasional Premature ventricular complexes Nonspecific ST and T wave abnormality Prolonged QT Abnormal ECG When compared with ECG of 29-DEC-2023 15:50, Sinus rhythm has replaced Atrial fibrillation Vent. rate has decreased BY 60 BPM T wave inversion less evident in Anterolateral leads Referred By: Laura Ramos Electronically Signed By:LAURA RAMOS
--- NOTE | 2024-03-26 11:56 | PC.NURSE ---
PATIENT TOLD TO STOP METOPROLOL PER MD. PATIENT STATES UNDERSTANDING.
== END 2024-03-26 11:57 | disposition home or self-care (01) ==
PROVIDERS: PCP Nurse Practitioner Family; Visit Provider Internal Medicine
PROC: 5A2204Z Restoration of Cardiac Rhythm, Single (ICD-10-PCS; principal; 2024-03-26 09:30)
DX: I48.0 Paroxysmal atrial fibrillation (principal); Z79.01 Long term (current) use of anticoagulants; I42.9 Cardiomyopathy, unspecified; I12.9 Hypertensive chronic kidney disease with stage 1 through stage 4 chronic kidney disease, or unspecified chronic kidney disease; N18.9 Chronic kidney disease, unspecified; J44.9 Chronic obstructive pulmonary disease, unspecified; Z99.89 Dependence on other enabling machines and devices; Z79.899 Other long term (current) drug therapy; Z88.8 Allergy status to other drugs, medicaments and biological substances; Z87.891 Personal history of nicotine dependence
CPT/HCPCS: 92960; 93005; 94640; J2704

== ENCOUNTER → 2024-03-26 08:00 | Outpatient (BNV) | payer OTHER, SELFPAY | PROVIDERS: PCP Nurse Practitioner Family; Visit Provider Internal Medicine | DX: I48.0 Paroxysmal atrial fibrillation (principal) | CPT/HCPCS: 92960; 93010 ==

== ENCOUNTER → 2024-04-08 13:08 | Outpatient (REF) | payer OTHER, SELFPAY ==
--- NOTE | 2024-04-08 13:11 | HM_ITS ---
Conclusion: 1. Patient was monitored for total period of 3 days 2. Baseline was normal sinus rhythm with average heart of 81 beats per minute 3. Frequent PVCs noted with total burden of 3.9% without any ventricular runs 4. Occasional SVE noted with 8 short runs of supraventricular tachycardia longest lasting 14 beats at 154 beats per minute 5. No patient reported events MTDD
== END ==
LOC: HO.CARD 13:08
PROVIDERS: PCP Nurse Practitioner Family; Visit Provider Internal Medicine
DX: I48.0 Paroxysmal atrial fibrillation (principal)
CPT/HCPCS: 93242

== ENCOUNTER → 2024-04-08 13:11 | Outpatient (BNV) | payer OTHER, SELFPAY | PROVIDERS: PCP Nurse Practitioner Family; Visit Provider Internal Medicine Cardiovascular Disease | DX: I49.3 Ventricular premature depolarization (principal); I47.10 Supraventricular tachycardia, unspecified | CPT/HCPCS: 93244 ==

== ENCOUNTER 2024-04-28 14:46 | Outpatient (AMB) | payer OTHER, SELFPAY ==
--- NOTE | 2024-04-28 14:47 | A.OFFVIS_ITS ---
Vital Signs 04/28/24 14:50 Height 5 ft 6 in Weight 179 lb 14.355 oz BMI 29.0 BP 136/58 L Blood Pressure Location Lt brachial Position Sitting Pulse 60 Intake Visit Reasons: 4 week follow-up with ekg Greige Mender Required: No Accompanied by: Daughter Allergies hydrochlorothiazide [From ZESTORETIC] Allergy (Intermediate, Verified 03/26/24 08:28) FELT FAINT, syncope lisinopril [LISINOPRIL] Allergy (Intermediate, Verified 03/26/24 08:28) Cough Medication List - Last Reconciled 04/28/24 by Gary Mathew MD albuterol sulfate 90 mcg/actuation 2 puffs inhalation Q4-6H PRN alendronate 70 mg PO MO amiodarone 200 mg PO DAILY 90 days apixaban (Eliquis) 2.5 mg PO BID 90 days benzonatate 200 mg PO ONCE PRN budesonide-formoterol 160-4.5 mcg/actuation (Symbicort) 2 puffs inhalation ONCE calcium carbonate-vitamin D3 600 mg-5 mcg (200 unit) 1 tab PO DAILY ferrous sulfate 325 mg PO DAILY fluoxetine 20 mg PO DAILY furosemide 40 mg PO DAILY guaifenesin 400 mg PO BID ipratropium-albuterol 0.5 mg-3 mg(2.5 mg base)/3 mL 3 mL inhalation Q4H PRN isosorbide mononitrate ER 30 mg See Protocol PO DAILY memantine 10 mg PO BID metoprolol succinate ER (Toprol XL) 100 mg PO DAILY wjrjcyyp-zklx-BA-calcium-mins 18 mg iron-400 mcg-500 mg Ca (Women's One Daily) 1 tab PO DAILY nitroglycerin 0.4 mg sublingual Q5M PRN pravastatin 40 mg PO BEDTIME HPI Comments Details: Marge returns for follow-up regarding various cardiac issues. She has atrial fibrillation, cardiomyopathy, suspected coronary disease. She is also quite frail. Many comorbidities. Former smoker and has COPD. Numerous hospitalizations. She has had 2 cardioversions for atrial fibrillation. Also h istory of GI bleed. After the most recent cardioversion, daughter states that she is generally better. Shortness of breath is less. No clear-cut angina. Seems to be getting along. She even took a vacation all the way to [place] and she was okay. [facility] Medical History CKD (chronic kidney disease) Hypoxemia Dyspnea on exertion Cardiomyopathy Obesity (BMI 30-39.9) Cataract Wears dentures Use of cane as ambulatory aid Arthritis Low back pain High cholesterol HTN (hypertension) Environmental and seasonal allergies Restrictive lung disease Essential hypertension Atherosclerotic cardiovascular disease COPD (chronic obstructive pulmonary disease) Surgical History History of esophagogastroduodenoscopy (EGD) Hx of colonoscopy History of tubal ligation History of ankle surgery History of lumpectomy of left breast Family History Father Family history of cancer Mother Colon cancer Alzheimer disease Social History Household Members: Family Household Members Other:: SON LIVES IN NEXT APARTMENT Housing: House Are you a primary medication care manager to a significant other at home: Yes (grandson age 13, son and daughter supportive) Do you presently have visiting nurse or other home services: Yes Alcohol intake: current Alcohol intake frequency: does not drink Patient Tobacco Use Status: Former Tobacco user Tobacco use type: Cigarette Advance Directives Date on File: 10/17/23 service: No Review of Systems Const Denies chills, Denies fatigue, Denies fever(s), Denies weight gain and Denies weight loss ENT Denies dizziness Card Denies chest pain, Denies leg edema, Denies lightheadedness, Denies palpitations, Denies dyspnea on exertion, Denies orthopnea and Denies other Resp Denies cough and Denies dyspnea on exertion GI Denies hematochezia and Denies change in stool character Musc Denies abnormal gait, Denies muscle weakness, Denies numbness, Denies radiating pain into limb and Denies tingling Neuro Denies abnormal gait, Denies dizziness, Denies numbness and Denies tingling Endo Denies fatigue and Denies palpitations Physical Exam Vital Signs: Last Vital Signs Pulse 60 04/28/24 14:50 BP 136/58 L 04/28/24 14:50 BMI result Body Mass Index 29.0 Const General: comfortable, no acute distress, ill appearing and tired appearing Orientation/consciousness: patient oriented x3 HEENT Other: Unremarkable Head: Yes normal to inspection Neck Neck: Yes normal visual inspection Chest Chest palpation & inspection: normal inspection of the chest Resp Auscultation: crackles Cardio Palpation: normal PMI Heart sounds: S1 normal heart sound present, S2 normal heart sound present, no gallops, no murmurs and no rubs GI Palpation (GI): Soft to palpation Back/Spine/Pelvis Other: unremarkable Skin General skin exam: no rashes or lesions noted Neuro General: patient oriented x3 Extrem General: Yes normal to inspection Psych Mental Status: mental status grossly normal Office Procedures EKG Details: EKG with underlying sinus rhythm at 60/Min; possible old inferior infarct; normal VA; automated corrected QT is 490 milliseconds but on manual calculation it seems much less than that. [id number], Complete Assessment & Plan Assessment & Plan (1) PAF (paroxysmal atrial fibrillation): Code(s): I48.0 - Paroxysmal atrial fibrillation Category: Medical Plan: She has had a couple of cardioversions. Maintain amiodarone. Maintain beta- blockers. Continue anticoagulation. Hopefully, she remains in sinus rhythm. (2) Cardiomyopathy: Code(s): I42.9 - Cardiomyopathy, unspecified Category: Medical Qualifiers: Cardiomyopathy type: unspecified Qualified Code(s): I42.9 - Cardiomyopathy, unspecified Plan: Most recently, LVEF is 31%. Basal inferior/inferoseptal akinesis. Suspected coronary disease based on the above. Could also have components of nonischemic cardiomyopathy from atrial fibrillation. Hypertension history may play a role. Clinically no overt heart failure. Continue diuretics. Continue beta-blockers. She already has renal insufficiency. Not on Entresto or CARL inhibitors. Otherwise, probably Jardiance or Farxiga in the future, but she is on already polypharmacy. (3) Atherosclerotic cardiovascular disease: Code(s): I25.10 - Atherosclerotic heart disease of chitina coronary artery without angina pectoris Category: Medical Plan: Myocardial perfusion imaging study 2020 shows probable old infarct along the inferior wall, but no ischemia. Overall, suspect underlying coronary disease but she does not have any overt an long. We again discussed about pros and cons of diagnostic catheterization but my concern is history of GI bleed as well as renal insufficiency, age, frailty. We discussed at length but finally decided that we would just manage conservatively. Daughter who is a nurse also feels better with that plan as opposed to something invasive. (4) Essential hypertension: Code(s): I10 - Essential (primary) hypertension Category: Medical Plan: Stable. Plan Discussed with daughter at length. Coding Level of Care Code Est Pt Level 4 (01605) Diagnoses PAF (paroxysmal atrial fibrillation) I48.0 Cardiomyopathy, unspecified type I42.9 Cardiomyopathy type: unspecified Atherosclerotic cardiovascular disease I25.10 Essential hypertension I10 CPT Codes EKG - CPT: 58798-[id number], Complete ([id number])
[2024-04-28 14:50] VITALS: BP 136/58; PULSE 60; BMI 29.0
== END 2024-04-28 15:46 | disposition home or self-care (01) ==
LOC: HO.HCS 14:46
PROVIDERS: PCP Nurse Practitioner Family; Visit Provider Internal Medicine
DX: I48.0 Paroxysmal atrial fibrillation (principal); I42.9 Cardiomyopathy, unspecified; I25.10 Atherosclerotic heart disease of native coronary artery without angina pectoris; I10 Essential (primary) hypertension
CPT/HCPCS: 93010; 99214

== ENCOUNTER → 2024-04-28 14:46 | Outpatient (BNVA) | payer OTHER, SELFPAY | PROVIDERS: PCP Nurse Practitioner Family; Visit Provider Internal Medicine | DX: I42.9 Cardiomyopathy, unspecified (principal); I48.0 Paroxysmal atrial fibrillation; I25.10 Atherosclerotic heart disease of native coronary artery without angina pectoris; I10 Essential (primary) hypertension; Z87.891 Personal history of nicotine dependence | CPT/HCPCS: 93005; 99212 ==

== ENCOUNTER 2024-06-05 13:32 | Outpatient (AMB) | payer MEDICARE, SELFPAY ==
[2024-06-05 13:43] VITALS: BP 102/62; PULSE 59
--- NOTE | 2024-06-05 13:43 | A.OFFVIS_ITS ---
Vital Signs 06/05/24 13:43 Height 5 ft 6 in BP 102/62 Blood Pressure Location Lt brachial Position Sitting Pulse 59 Pulse Source Pulse Oximeter Intake Visit Reasons: COPD Intake Note: ptis here for follow up and states things are okay right now, and she only uses poc for appt or traveling, pt needs refill on symbicort and albuterol Beef Breaker Required: No Allergies hydrochlorothiazide [From ZESTORETIC] Allergy (Intermediate, Verified 06/05/24 13:48) FELT FAINT, syncope lisinopril [LISINOPRIL] Allergy (Intermediate, Verified 06/05/24 13:48) Cough HPI HPI COPD: Details: LYNN 79 YEARS OLD FEMALE IS HERE TO SEE ME AFTER 4 MONTHS. HER RESPIRATORY STATUS VARIES ACCORDING TO THE DEGREE OF CONGESTIVE HEART FAILURE, BUT OVERALL HAS BEEN STABLE. WHEN SHE WAS HERE LAST TIME WE DID 6 MINUTES WALK AND SHE DID NOT QUALIFY FOR PORTABLE UNIT. HOWEVER AFTERWARDS HER CONDITION DID DETERIORATE, AND SHE WAS DESATURATING. SURPRISINGLY THE FAMILY WAS ABLE TO BUY IS SMALL POC ONLINE FROM [employer] ( $ 800 ) NOW WHENEVER SHE HAS TO GO OUTDOORS FOR SHORT PERIODS SHE USES THIS POC, BUT AT HOME OR WHEN DRIVING ON LONG DISTANCE SHE STILL USES REGULAR OXYGEN. SHE IS DOING VERY WELL AND DENIES ANY ACTIVE PULMONARY CONGESTION OR INFECTION. SHE DOES USE HER INHALERS REGULARLY, USES DUONEB UPDRAFTS ONLY NEEDED. [facility] Medical History CKD (chronic kidney disease) Hypoxemia Dyspnea on exertion Cardiomyopathy Obesity (BMI 30-39.9) Cataract Wears dentures Use of cane as ambulatory aid Arthritis Low back pain High cholesterol HTN (hypertension) Environmental and seasonal allergies Restrictive lung disease Essential hypertension Atherosclerotic cardiovascular disease COPD (chronic obstructive pulmonary disease) Surgical History History of esophagogastroduodenoscopy (EGD) Hx of colonoscopy History of tubal ligation History of ankle surgery History of lumpectomy of left breast Family History Father Family history of cancer Mother Colon cancer Alzheimer disease Social History Household Members: Family Household Members Other:: SON LIVES IN NEXT APARTMENT Housing: House Are you a primary patient care technician to a significant other at home: Yes (grandson age 13, son and daughter supportive) Do you presently have visiting nurse or other home services: Yes Alcohol intake: current Alcohol intake frequency: does not drink Patient Tobacco Use Status: Former Tobacco user Tobacco use type: Cigarette Advance Directives Date on File: 10/17/23 service: No Review of Systems Const All systems reviewed & are unremarkable except as noted in HPI and below Eyes Reports no additional complaints ENT Reports no additional complaints Card Denies chest pain, Denies irregular heart rhythm and Denies leg edema Resp Reports as per HPI GI Reports no additional complaints Reports no additional complaints Musc Reports back pain (MILD) Skin/Breast Reports system reviewed and no additional complaints, except as documented Neuro Reports no additional complaints and Reports memory loss (MILD) Psych Reports no additional complaints and Reports memory loss (MILD) Endo Reports no additional complaints Physical Exam Const Other: Moderately overweight General: comfortable, no acute distress, alert and awake Orientation/consciousness: patient oriented x3 HEENT Head: Yes normal to inspection General nose exam: No nasal polyps present and No nasal discharge present Face and sinus: Yes sinuses nontender Mouth: oropharynx normal Throat: Yes posterior oropharynx normal Eyes General: appearance normal, both eyes and all related structures Neck Neck: Yes normal visual inspection, Yes no lymphadenopathy, Yes trachea midline and Yes no JVD Thyroid: Thyroid normal Chest Chest palpation & inspection: normal inspection of the chest, normal palpation of entire chest wall and no tenderness Resp Other: Percussion note resonant, breath sounds are distant with prolonged expiratory phase. No wheezes rhonchi or crepitations are heard on auscultation. Cardio Palpation: normal PMI Rate: regular rate Rhythm: regular rhythm Heart sounds: no gallops and no murmurs GI Palpation (GI): Soft to palpation, nontender, No hepatosplenomegaly present and no masses Auscultation: normal bowel sounds Back/Spine/Pelvis Thoracic/Lumbar Spine: thoracic and lumbar spine normal to inspection and thoraco-lumbar ROM limited Skin General skin exam: no rashes or lesions noted Neuro General: patient oriented x3 and no focal motor deficits Cranial nerves: Yes CN's II-XII intact bilaterally Extrem General: Yes normal to inspection, Yes no clubbing, cyanosis or edema and Yes no calf tenderness Psych Appearance: grossly normal and well kempt Speech and movement: Normal speech and movement present Assessment & Plan Assessment & Plan (1) COPD (chronic obstructive pulmonary disease): Comment: PATIENT DOES HAVE MODERATELY SEVERE OBSTRUCTIVE AIRWAY DISORDER PER PREVIOUS SPIROMETRY. IT IS STAYING VERY STABLE. Code(s): J44.9 - Chronic obstructive pulmonary disease, unspecified Category: Medical Plan: CONTINUE TO USE SYMBICORT 160-4.52 PUFFS B.I.D. USE IPRATROPIUM-ALBUTEROL SOLUTION IN THE NEBULIZER ABOUT TWICE A DAY REGULARLY AND Q.6 HOURS P.R.N.. ALSO CONTINUE USING GUAIFENESIN 400 MG B.I.D. (2) Restrictive lung disease: Comment: PATIENT DOES HAVE MODERATE RESTRICTIVE DISORDER . THIS IS PROBABLY DUE TO HER GENERAL WEEAKNESS . Code(s): J98.4 - Other disorders of lung Category: Medical Plan: ADVISED TO DO DEEP BREATHING EXERCISES BUT SHE IS NOT ABLE TO DO MUCH. (3) Hypoxemia: Comment: PATIENT IS CASE OF NOCTURNAL HYPOXEMIA AND ALSO EXERCISE INDUCED HYPOXEMIA. NOW AFTER HER ACUTE EXACERBATION SHE IS USING O2 2 L/MINUTE THROUGHOUT THE DAY AND NIGHT. ON HER LAST VISIT SHE DID NOT QUALIFY FOR PORTABLE UNIT. HOWEVER AFTERWARDS THE FAMILY MEMBERS HAVE NOTED THAT HER O2 SATS DO DROP INTO MID 80S WITH ANY PHYSICAL EXERTION. SO THE FAMILY WAS ABLE TO BY E POC ONLINE, AND SHE USES WHEN GOING OUTDOORS FOR SHORT PERIODS. AT PRESENT SHE IS USING AT 4 L/MINUTE. Code(s): R09.02 - Hypoxemia Category: Medical Plan: USE REGULAR STATIONARY CONCENTRATOR, O2 2 L/MINUTE AT NIGHT AND P.R.N. DURING THE DAYTIME IF O2 SAT DROPS BELOW 90%. FOR OUTDOORS USE POC AT 4 L/MINUTE. Coding Level of Care Code Est Pt Level 3 (47869) Diagnoses COPD (chronic obstructive pulmonary disease) J44.9 Restrictive lung disease J98.4 Hypoxemia R09.02
== END 2024-06-05 14:02 | disposition home or self-care (01) ==
PROVIDERS: PCP Nurse Practitioner Family; Visit Provider Internal Medicine
DX: J44.9 Chronic obstructive pulmonary disease, unspecified (principal); J98.4 Other disorders of lung; R09.02 Hypoxemia
CPT/HCPCS: 99213

== ENCOUNTER → 2024-06-05 13:32 | Outpatient (BNVA) | payer MEDICARE, SELFPAY | PROVIDERS: PCP Nurse Practitioner Family; Visit Provider Internal Medicine | DX: J44.9 Chronic obstructive pulmonary disease, unspecified (principal); J98.4 Other disorders of lung; R09.02 Hypoxemia | CPT/HCPCS: 99212 ==

== ENCOUNTER 2024-06-09 14:20 | Outpatient (AMB) | payer OTHER, SELFPAY ==
[2024-06-09 14:21] VITALS: BP 130/52; PULSE 56; O2SAT 90
--- NOTE | 2024-06-09 14:21 | HO.NEPHOV ---
Vital Signs 06/09/24 14:21 Height 5 ft 6 in BP 130/52 L Blood Pressure Location Lt brachial Position Sitting Pulse 56 Pulse Source Pulse Oximeter Pulse Oximetry (%) 90 L Oxygen Delivery Method Room Air Intake Visit Reasons: RADHA/ Conf Entertainment Director Required: No Accompanied by: Daughter Allergies hydrochlorothiazide [From ZESTORETIC] Allergy (Intermediate, Verified 06/09/24 14:30) FELT FAINT, syncope lisinopril [LISINOPRIL] Allergy (Intermediate, Verified 06/09/24 14:30) Cough Medication List - Last Reconciled 06/09/24 by Benson Li MD albuterol sulfate 90 mcg/actuation 2 puffs inhalation Q4-6H PRN alendronate 70 mg PO QWEEK amiodarone 200 mg PO DAILY 90 days apixaban (Eliquis) 2.5 mg PO BID 90 days benzonatate 200 mg PO ONCE PRN budesonide-formoterol 160-4.5 mcg/actuation (Symbicort) 2 puffs inhalation ONCE calcium carbonate-vitamin D3 600 mg-5 mcg (200 unit) 1 tab PO DAILY ferrous sulfate 325 mg PO DAILY fluoxetine 20 mg PO DAILY furosemide 40 mg PO DAILY guaifenesin 400 mg PO BID ipratropium-albuterol 0.5 mg-3 mg(2.5 mg base)/3 mL 3 mL inhalation Q4H PRN isosorbide mononitrate ER 30 mg See Protocol PO DAILY mecobalamin (vitamin B12) 2,000 mcg PO DAILY memantine 10 mg PO BID metoprolol succinate ER (Toprol XL) 100 mg PO DAILY jpnsbqhd-qbdv-FX-calcium-mins 18 mg iron-400 mcg-500 mg Ca (Women's One Daily) 1 tab PO DAILY nitroglycerin 0.4 mg sublingual Q5M PRN pravastatin 40 mg PO BEDTIME HPI Comments Details: Elderly woman with mild CKD admitted for dyspnea Initially she was vigourosly diuresed Serum creatinine increased promptly with diuresis without improvement in respiratory status LAsix was hled and with cautious hydration, creatinine improved marginally She has A.Flutter with RVR and underwent cardioversion She has COPD and is being followed by She was started on nasal O2 during this hospitalization 12/03/23 Recently hospitalized for Anemia Feels better today On Lasix 40 mg QD 01/29/24 Readmitted in December for COPD EDG was done No colonoscopy HgB has drifted down to 8.9 On Iron tabs at home [facility] Medical History (Updated 06/09/24 @ 14:30 by PING Rcihards) History of cardioversion (~03/2024) CKD (chronic kidney disease) Hypoxemia Dyspnea on exertion Cardiomyopathy Obesity (BMI 30-39.9) Cataract Wears dentures Use of cane as ambulatory aid Arthritis Low back pain High cholesterol HTN (hypertension) Environmental and seasonal allergies Restrictive lung disease Essential hypertension Atherosclerotic cardiovascular disease COPD (chronic obstructive pulmonary disease) Surgical History History of esophagogastroduodenoscopy (EGD) Hx of colonoscopy History of tubal ligation History of ankle surgery History of lumpectomy of left breast Family History Father Family history of cancer Mother Colon cancer Alzheimer disease Social History Household Members: Family Household Members Other:: SON LIVES IN NEXT APARTMENT Housing: House Are you a primary child day care teacher to a significant other at home: Yes (grandson age 13, son and daughter supportive) Do you presently have visiting nurse or other home services: Yes Alcohol intake: current Alcohol intake frequency: does not drink Patient Tobacco Use Status: Former Tobacco user Tobacco use type: Cigarette Advance Directives Date on File: 10/17/23 service: No Physical Exam Vital Signs: Last Vital Signs Pulse 56 06/09/24 14:21 BP 130/52 L 06/09/24 14:21 Pulse Ox 90 L 06/09/24 14:21 Oxygen Delivery Method Room Air 06/09/24 14:21 Results Reviewed Nephrology Results: Hgb 10.9 g/dl (12.0-16.0) L 03/03/24 WBC 9.9 X10*3/uL (4.8-10.8) 03/03/24 Plt Count 291 X10*3/uL (160-400) 03/03/24 Sodium 141 mmol/L (135-145) 03/03/24 Potassium 4.3 mmol/L (3.3-5.1) 03/03/24 Chloride 103 mmol/L (96-108) 03/03/24 Carbon Dioxide 31 mmol/L (22-29) H 03/03/24 BUN 23 mg/dL (9-16) H 03/03/24 Creatinine 1.44 mg/dL (0.5-1.4) H 03/03/24 Calcium 9.3 mg/dL (8.4-10.2) 03/03/24 Assessment & Plan Assessment & Plan (1) RADHA (acute kidney injury): Code(s): N17.9 - Acute kidney failure, unspecified Category: Medical (2) CKD (chronic kidney disease): Code(s): N18.9 - Chronic kidney disease, unspecified Category: Medical Qualifiers: Chronic kidney disease stage: stage 3 (moderate) Chronic kidney disease stage 3 subtype: stage 3b (GFR 30-44) Qualified Code(s): N18.32 - Chronic kidney disease, stage 3b (3) Anemia: Code(s): D64.9 - Anemia, unspecified Category: Medical Plan Elderly woman with COPD and a.flutter s/p cardioversion sustained RADHA due to hypoperfusion from aggressive diuresis Clinically appears euvolemic today Currently on Lasix 40 mg QD BP is acceptable Goal is to slow the progression of kidney disease Keep on low salt diet Continue to avoid nephrotoxins Anemia Multifactorial HCT has improved Orders: Orders Basic Metabolic Panel 3 Months D64.9 - Anemia, unspecified, N18.32 - Chronic kidney disease, stage 3b Complete Blood Count Auto Diff 3 Months D64.9 - Anemia, unspecified, N18.32 - Chronic kidney disease, stage 3b Coding Level of Care Code Est Pt Level 4 (59960) Diagnoses RADHA (acute kidney injury) N17.9 Stage 3b chronic kidney disease N18.32 Chronic kidney disease stage: stage 3 (moderate) Chronic kidney disease stage 3 subtype: stage 3b (GFR 30-44) Anemia D64.9
== END 2024-06-09 14:44 | disposition home or self-care (01) ==
PROVIDERS: PCP Nurse Practitioner Family; Visit Provider Internal Medicine Hypertension Specialist
DX: N17.9 Acute kidney failure, unspecified (principal); N18.32 Chronic kidney disease, stage 3b; D63.1 Anemia in chronic kidney disease
CPT/HCPCS: 99214

== ENCOUNTER → 2024-06-09 14:20 | Outpatient (BNVA) | payer OTHER, SELFPAY | PROVIDERS: PCP Nurse Practitioner Family; Visit Provider Internal Medicine Hypertension Specialist | DX: N17.9 Acute kidney failure, unspecified (principal); N18.32 Chronic kidney disease, stage 3b; D63.1 Anemia in chronic kidney disease | CPT/HCPCS: 99212 ==

== ENCOUNTER 2024-10-09 13:58 | Outpatient (AMB) | payer MEDICARE, SELFPAY ==
[2024-10-09 14:04] VITALS: BP 140/70; PULSE 59; O2SAT 97
--- NOTE | 2024-10-09 14:04 | MHC.OFFVIS ---
Vital Signs 10/09/24 14:04 Height 5 ft 6 in BP 140/70 H Blood Pressure Location Lt brachial Position Sitting Pulse 59 Pulse Source Pulse Oximeter Pulse Oximetry (%) 97 Oxygen Delivery Method Nasal Cannula Oxygen Flow Rate 2 Intake Visit Reasons: COPD Intake Note: pt is here for follow up and states things are doing well, no issues Auto Brake Mechanic Required: No Allergies hydrochlorothiazide [From ZESTORETIC] Allergy (Intermediate, Verified 10/09/24 14:22) FELT FAINT, syncope lisinopril [LISINOPRIL] Allergy (Intermediate, Verified 10/09/24 14:22) Cough Medication List - Last Reconciled 10/09/24 by Mini Martinez MD albuterol sulfate 90 mcg/actuation 2 puffs inhalation Q4-6H PRN alendronate 70 mg PO QWEEK amiodarone 200 mg PO DAILY 90 days apixaban (Eliquis) 2.5 mg PO BID 90 days benzonatate 200 mg PO ONCE PRN budesonide-formoterol 160-4.5 mcg/actuation (Symbicort) 2 puffs inhalation ONCE calcium carbonate-vitamin D3 600 mg-5 mcg (200 unit) 1 tab PO DAILY ferrous sulfate 325 mg PO DAILY fluoxetine 20 mg PO DAILY furosemide 40 mg PO DAILY guaifenesin 400 mg PO BID ipratropium-albuterol 0.5 mg-3 mg(2.5 mg base)/3 mL 3 mL inhalation Q4H PRN isosorbide mononitrate ER 30 mg See Protocol PO DAILY mecobalamin (vitamin B12) 2,000 mcg PO DAILY memantine 10 mg PO BID metoprolol succinate ER (Toprol XL) 100 mg PO DAILY yojmsucp-uzqo-NF-calcium-mins 18 mg iron-400 mcg-500 mg Ca (Women's One Daily) 1 tab PO DAILY nitroglycerin 0.4 mg sublingual Q5M PRN pravastatin 40 mg PO BEDTIME Do you need a note to return to daycare/school/sports/work: No HPI HPI COPD: Details: THIS 79 YEARS OLD VERY PLEASANT FEMALE IS BROUGHT IN BY HER DAUGHTER WHO IS A REGISTERED NURSE, SHE COMES FOR 4 MONTHS FOLLOW-UP VISIT. SHE CLAIMS THAT EVERYTHING IS DOING WELL AND STABLE. SHE USES O2 2 L/MINUTE CONTINUOUSLY DAY AND NIGHT, USES HER INHALERS REGULARLY. SHE HAS HAD NO ACUTE RESPIRATORY SYMPTOMS. HER CONGESTIVE HEART FAILURE IS ALSO UNDER CONTROL. SHE IS BROUGHT IN THE WHEELCHAIR. AT HOME SHE LIVES ON THE [address]ND FLOOR AND MOSTLY STAYS THERE, BUT SOON WEATHER IS ALERT BUT BETTER THE FAMILY WOULD ENCOURAGE HER TO COME DOWN STAIRS, AND GO OUTDOORS EVERY FEW WEEKS. SHE HAS VERY SUPPORTIVE FAMILY.. [facility] Medical History History of cardioversion (~03/2024) CKD (chronic kidney disease) Hypoxemia Dyspnea on exertion Cardiomyopathy Obesity (BMI 30-39.9) Cataract Wears dentures Use of cane as ambulatory aid Arthritis Low back pain High cholesterol HTN (hypertension) Environmental and seasonal allergies Restrictive lung disease Essential hypertension Atherosclerotic cardiovascular disease COPD (chronic obstructive pulmonary disease) Surgical History History of esophagogastroduodenoscopy (EGD) Hx of colonoscopy History of tubal ligation History of ankle surgery History of lumpectomy of left breast Family History Father Family history of cancer Mother Colon cancer Alzheimer disease Social History Household Members: Family Household Members Other:: SON LIVES IN NEXT APARTMENT Housing: House Are you a primary hemodialysis patient care specialist to a significant other at home: Yes (grandson age 13, son and daughter supportive) Do you presently have visiting nurse or other home services: Yes Alcohol intake: current Alcohol intake frequency: does not drink Patient Tobacco Use Status: Former Tobacco user Tobacco use type: Cigarette Advance Directives Date on File: 10/17/23 service: No Review of Systems Const All systems reviewed & are unremarkable except as noted in HPI and below Eyes Reports no additional complaints ENT Reports no additional complaints Card Denies chest pain, Denies irregular heart rhythm and Denies leg edema Resp Reports as per HPI GI Reports no additional complaints Reports no additional complaints Musc Reports back pain (MILD) Skin/Breast Reports system reviewed and no additional complaints, except as documented Neuro Reports no additional complaints and Reports memory loss (MILD) Psych Reports no additional complaints and Reports memory loss (MILD) Endo Reports no additional complaints Physical Exam Vital Signs: Last Vital Signs Pulse 59 10/09/24 14:04 BP 140/70 H 10/09/24 14:04 Pulse Ox 97 10/09/24 14:04 Oxygen Delivery Method Nasal Cannula 10/09/24 14:04 Oxygen Flow Rate 2 10/09/24 14:04 Const Other: Moderately overweight General: comfortable, no acute distress, alert and awake Orientation/consciousness: patient oriented x3 HEENT Head: Yes normal to inspection General nose exam: No nasal polyps present and No nasal discharge present Face and sinus: Yes sinuses nontender Mouth: oropharynx normal Throat: Yes posterior oropharynx normal Eyes General: appearance normal, both eyes and all related structures Neck Neck: Yes normal visual inspection, Yes no lymphadenopathy, Yes trachea midline and Yes no JVD Thyroid: Thyroid normal Chest Chest palpation & inspection: normal inspection of the chest, normal palpation of entire chest wall and no tenderness Resp Other: Percussion note resonant, breath sounds are distant with prolonged expiratory phase. No wheezes rhonchi or crepitations are heard on auscultation. Cardio Palpation: normal PMI Rate: regular rate Rhythm: regular rhythm Heart sounds: no gallops and no murmurs GI Palpation (GI): Soft to palpation, nontender, No hepatosplenomegaly present and no masses Auscultation: normal bowel sounds Back/Spine/Pelvis Thoracic/Lumbar Spine: thoracic and lumbar spine normal to inspection and thoraco-lumbar ROM limited Skin General skin exam: no rashes or lesions noted Neuro General: patient oriented x3 and no focal motor deficits Cranial nerves: Yes CN's II-XII intact bilaterally Extrem General: Yes normal to inspection, Yes no clubbing, cyanosis or edema and Yes no calf tenderness Psych Appearance: grossly normal and well kempt Speech and movement: Normal speech and movement present Assessment & Plan Assessment & Plan (1) COPD (chronic obstructive pulmonary disease): Comment: PATIENT DOES HAVE MODERATELY SEVERE OBSTRUCTIVE AIRWAY DISORDER PER PREVIOUS SPIROMETRY. IT IS STAYING VERY STABLE. Code(s): J44.9 - Chronic obstructive pulmonary disease, unspecified Category: Medical Plan: CONTINUE USING SYMBICORT 160-4.52 PUFFS B.I.D. IPRATROPIUM-ALBUTEROL SOLUTION IN THE NEBULIZER Q 6 HOURS P.R.N. WHEN AT HOME ALBUTEROL HFA 2 PUFFS Q 6 HOURS P.R.N. WHEN OUTDOORS (2) Restrictive lung disease: Comment: PATIENT DOES HAVE MODERATE RESTRICTIVE DISORDER . THIS IS PROBABLY DUE TO HER GENERAL WEEAKNESS AND OBESITY.. Code(s): J98.4 - Other disorders of lung Category: Medical Plan: TRY TO DO DEEP BREATHING EXERCISES 2 OR 3 TIMES A DAY AND MUCH POSSIBLE. (3) Hypoxemia: Comment: PATIENT IS CASE OF NOCTURNAL HYPOXEMIA AND ALSO EXERCISE INDUCED HYPOXEMIA. GRADUALLY SHE HAS BECOME DEPENDENT ON OXYGEN THROUGHOUT THE DAY AND NIGHT. Code(s): R09.02 - Hypoxemia Category: Medical Plan: O2 2 L/MINUTE AT NIGHT. AND ALSO MAY CONTINUE TO USE DURING THE DAYTIME ESPECIALLY IF SHE IS GOING OUTDOORS OR ANY PHYSICAL EXERTION AT HOME. Coding Level of Care Code Est Pt Level 3 (04933) Diagnoses COPD (chronic obstructive pulmonary disease) J44.9 Restrictive lung disease J98.4 Hypoxemia R09.02
== END 2024-10-09 14:24 | disposition home or self-care (01) ==
PROVIDERS: PCP Nurse Practitioner Family; Visit Provider Internal Medicine
DX: J44.9 Chronic obstructive pulmonary disease, unspecified (principal); J98.4 Other disorders of lung; R09.02 Hypoxemia
CPT/HCPCS: 99213

== ENCOUNTER → 2024-10-09 13:58 | Outpatient (BNVA) | payer MEDICARE, SELFPAY | PROVIDERS: PCP Nurse Practitioner Family; Visit Provider Internal Medicine | DX: J44.9 Chronic obstructive pulmonary disease, unspecified (principal); J98.4 Other disorders of lung; R09.02 Hypoxemia; Z99.81 Dependence on supplemental oxygen | CPT/HCPCS: 99212 ==

== ENCOUNTER 2024-11-06 14:34 | Outpatient (AMB) | payer MEDICARE, SELFPAY ==
[2024-11-06 15:11] VITALS: BP 170/60; BMI 31.8
--- NOTE | 2024-11-06 15:11 | MHC.OFFVIS ---
Vital Signs 11/06/24 15:11 Height 5 ft 6 in Weight 197 lb 1.492 oz BMI 31.8 BP 170/60 H Blood Pressure Location Rt brachial Position Sitting Intake Visit Reasons: 4 mth f/up Maintenance Services Dispatcher Required: No Accompanied by: Self / Same As Patient Allergies hydrochlorothiazide [From ZESTORETIC] Allergy (Intermediate, Verified 10/09/24 14:22) FELT FAINT, syncope lisinopril [LISINOPRIL] Allergy (Intermediate, Verified 10/09/24 14:22) Cough Medication List - Last Reconciled 11/06/24 by Gary Mathew MD albuterol sulfate 90 mcg/actuation 2 puffs inhalation Q4-6H PRN alendronate 70 mg PO QWEEK amiodarone 200 mg PO DAILY 90 days apixaban (Eliquis) 2.5 mg PO BID 90 days benzonatate 200 mg PO ONCE PRN budesonide-formoterol 160-4.5 mcg/actuation (Symbicort) 2 puffs inhalation ONCE calcium carbonate-vitamin D3 600 mg-5 mcg (200 unit) 1 tab PO DAILY ferrous sulfate 325 mg PO DAILY fluoxetine 20 mg PO DAILY furosemide 40 mg PO DAILY guaifenesin 400 mg PO BID ipratropium-albuterol 0.5 mg-3 mg(2.5 mg base)/3 mL 3 mL inhalation Q4H PRN isosorbide mononitrate ER 30 mg See Protocol PO DAILY mecobalamin (vitamin B12) 2,000 mcg PO DAILY memantine 10 mg PO BID metoprolol succinate ER (Toprol XL) 100 mg PO DAILY rmpqaipu-xsml-CS-calcium-mins 18 mg iron-400 mcg-500 mg Ca (Women's One Daily) 1 tab PO DAILY nitroglycerin 0.4 mg sublingual Q5M PRN pravastatin 40 mg PO BEDTIME HPI Comments Details: Marge returns for follow-up regarding various cardiac issues. She has atrial fibrillation, cardiomyopathy, suspected coronary disease. She is also quite frail. Many comorbidities. Former smoker and has COPD. On supplemental oxygen. Numerous hospitalizations. She has had 2 cardioversions for atrial fibrillation. Also history of GI bleed. After the last cardioversion in 2023, she has generally okay. Shortness of breath is at baseline. She comes in a wheelchair with the daughter who is a nurse. No recent hospitalizations. She has gained about 20 lb or so in weight. Dietary indiscretion during the holiday time. [facility] Medical History History of cardioversion (~03/2024) CKD (chronic kidney disease) Hypoxemia Dyspnea on exertion Cardiomyopathy Obesity (BMI 30-39.9) Cataract Wears dentures Use of cane as ambulatory aid Arthritis Low back pain High cholesterol HTN (hypertension) Environmental and seasonal allergies Restrictive lung disease Essential hypertension Atherosclerotic cardiovascular disease COPD (chronic obstructive pulmonary disease) Surgical History History of esophagogastroduodenoscopy (EGD) Hx of colonoscopy History of tubal ligation History of ankle surgery History of lumpectomy of left breast Family History Father Family history of cancer Mother Colon cancer Alzheimer disease Social History Household Members: Family Household Members Other:: SON LIVES IN NEXT APARTMENT Housing: House Are you a primary health care analyst to a significant other at home: Yes (grandson age 13, son and daughter supportive) Do you presently have visiting nurse or other home services: Yes Alcohol intake: current Alcohol intake frequency: does not drink Patient Tobacco Use Status: Former Tobacco user Tobacco use type: Cigarette Advance Directives Date on File: 10/17/23 service: No Review of Systems Const Denies chills, Denies fatigue, Denies fever(s), Denies weight gain and Denies weight loss ENT Denies dizziness Card Denies chest pain, Denies leg edema, Denies lightheadedness, Denies palpitations, Denies dyspnea on exertion, Denies orthopnea and Denies other Resp Denies cough and Denies dyspnea on exertion GI Denies hematochezia and Denies change in stool character Musc Denies abnormal gait, Denies muscle weakness, Denies numbness, Denies radiating pain into limb and Denies tingling Neuro Denies abnormal gait, Denies dizziness, Denies numbness and Denies tingling Endo Denies fatigue and Denies palpitations Physical Exam Vital Signs: Last Vital Signs BP 170/60 H 11/06/24 15:11 BMI result Body Mass Index 31.8 Const General: comfortable and no acute distress Orientation/consciousness: patient oriented x3 HEENT Other: Unremarkable Head: Yes normal to inspection Neck Neck: Yes normal visual inspection Chest Chest palpation & inspection: normal inspection of the chest Resp Other: Minimal crackles. Cardio Palpation: normal PMI Heart sounds: S1 normal heart sound present, S2 normal heart sound present, no gallops, no murmurs and no rubs GI Palpation (GI): Soft to palpation Back/Spine/Pelvis Other: unremarkable Skin General skin exam: no rashes or lesions noted Neuro General: patient oriented x3 Extrem General: Yes normal to inspection Psych Mental Status: mental status grossly normal Office Procedures EKG Details: EKG shows sinus rhythm at 58/Min; slight ST sagging laterally; [place] 208 milliseconds; corrected QT is 498 milliseconds. Similar to prior. 72076-[id number], Complete Assessment & Plan Assessment & Plan (1) PAF (paroxysmal atrial fibrillation): Code(s): I48.0 - Paroxysmal atrial fibrillation Category: Medical Plan: She has had a couple of cardioversions. Maintain amiodarone. Maintain beta-blockers. Continue anticoagulation. (2) Cardiomyopathy: Code(s): I42.9 - Cardiomyopathy, unspecified Category: Medical Qualifiers: Cardiomyopathy type: unspecified Qualified Code(s): I42.9 - Cardiomyopathy, unspecified Plan: In the last echocardiogram, LVEF is 31%. Basal inferior/inferoseptal akinesis. Suspected coronary disease based on the above. Could also have components of nonischemic cardiomyopathy from atrial fibrillation. Hypertension history may play a role. Clinically, no symptoms or signs of congestive heart failure. She can continue beta-blockers, diuretics. She has got CKD and creatinine have been up and down. Has not been on Entresto or CARL inhibitors and reluctant to start. Otherwise, we can add Farxiga. Labs are due through Nephrology. Recheck echocardiogram. (3) Atherosclerotic cardiovascular disease: Code(s): I25.10 - Atherosclerotic heart disease of [place] coronary artery without angina pectoris Category: Medical Plan: Myocardial perfusion imaging study 2019 shows probable old infarct along the inferior wall, but no ischemia. Overall, suspect underlying coronary disease but she does not have any overt angina. Cardiac catheterization has been discussed numerous times in the past but because of various issues including age, frailty, GI bleed history, renal insufficiency, oxygen dependence extra, decided to just treat medically and daughter has been in full agreement. This was also clarified today. Check lipids. (4) Essential hypertension: Code(s): I10 - Essential (primary) hypertension Category: Medical Plan: Today's blood pressure is high but daughter who is a nurse states that it is never this high when she checks at home. Advised him to keep doing home checks and contact us as needed. If consistently high, may need meds. Plan Discussed with daughter at length. Orders: Orders CA echo transthoracic complete 3 Months I25.10 - Atherosclerotic heart disease of [place] coronary artery without angina pectoris Lipid Panel Today E78.5 - Hyperlipidemia, unspecified Medications: New dapagliflozin propanediol (Farxiga) 10 mg PO DAILY 90 tabs 1RF Coding Level of Care Code Est Pt Level 4 (98219) Complex EM visit Add On G2211 Diagnoses PAF (paroxysmal atrial fibrillation) I48.0 Cardiomyopathy, unspecified type I42.9 Cardiomyopathy type: unspecified Atherosclerotic cardiovascular disease I25.10 Essential hypertension I10 CPT Codes EKG - CPT: 75144-[id number], Complete ([id number])
--- OUTSIDE RECORDS SUMMARY | 2024-11-06 15:12 | XMS_ITS | Encounter Summary ---
Author Organization [employer] Address [address] [facility] [address] [place] [address] Care Team Providers Care Store Operations Specialist Name Role Phone Unavailable Primary Care Provider Unavailabl e Reason for Visit * Reason Comments Med Refill Encounter Details Date Type Department Care Team (Late st Contact Info) Description 02/28/2024 Refill [facility]INE [address] [place] [address] Alessandra Mcnair MD Social History Tobacco Use Types Packs/Day Years Used Date Smoking Tobacco: Never Assessed Comments Unknown Sex and Gender Information Value Date Recorded Sex Assigned at Female 07/24/2022 10:26 AM EDT Legal Sex Female 10:26 AM EDT Gender Identity Not on file Sexual Orientation Not on file documented as of this encounter Plan of Treatment Not on file documented as of this encounter Visit Diagnoses Not on filedocumented in this encounter
--- OUTSIDE RECORDS SUMMARY | 2024-11-06 15:12 | XMS_ITS | Clinical Summary ---
Author Organization [employer] Address [address] [place] [address] [address] [place] [address] Care Team Providers Care Awning Installer Name Role Phone Unavailable Primary Care Provider Unavailabl e Social History Tobacco Use Types Packs/Day Years Used Date Smoking Tobacco: Never Assessed Comments Unknown Sex and Gender Information Value Date Recorded Sex Assigned at Female 07/24/2022 10:26 AM EDT Legal Sex Female 10:26 AM EDT Gender Identity Not on file Sexual Orientation Not on file Plan of Treatment Health Maintenance Due Date Last Done Comments Depression Screening 1945 Alcohol/Substance Use Screening 1955 Tobacco Screening 1955 DTaP/Tdap/Td Vaccines (1 - Tdap) 1962 Pneumococcal Vaccine: 50+ Ye ars (1 of 1 - PCV) 1993 Zoster Vaccines (1 of 2) 1993 RSV Patients and Pa tients Aged 60 years or older (1 - 1-dose 75+ series) 2018 COVID-19 Vaccine ( - 2023-2 5 season) 2024 Influenza Vaccine (#1) 2024 HIB Vaccines Aged Out No longer eligi ble based on patient's age to complete this topic HPV Vaccines Aged Out No longer eligi ble based on patient's age to complete this topic Hepatitis A Vaccines Aged Out No long er eligible based on patient's age to complete this topic Hepatitis B Vaccines Aged Out No long er eligible based on patient's age to complete this topic IPV Vaccines Aged Out No longer eligi ble based on patient's age to complete this topic Meningococcal Vaccine Aged Out No karl michael eligible based on patient's age to complete this topic RSV under 20 months Aged Out No longe r eligible based on patient's age to complete this topic Rotavirus Vaccines Aged Out No longer eligible based on patient's age to complete this topic
== END 2024-11-06 15:55 | disposition home or self-care (01) ==
PROVIDERS: PCP Nurse Practitioner Family; Visit Provider Internal Medicine
DX: I48.0 Paroxysmal atrial fibrillation (principal); I42.9 Cardiomyopathy, unspecified; I25.10 Atherosclerotic heart disease of native coronary artery without angina pectoris; I10 Essential (primary) hypertension
CPT/HCPCS: 93010; 99214; G2211

== ENCOUNTER → 2024-11-06 15:10 | Outpatient (BNVA) | payer MEDICARE, SELFPAY | PROVIDERS: PCP Nurse Practitioner Family; Visit Provider Internal Medicine | DX: I48.0 Paroxysmal atrial fibrillation (principal); I42.9 Cardiomyopathy, unspecified; I25.10 Atherosclerotic heart disease of native coronary artery without angina pectoris; I10 Essential (primary) hypertension | CPT/HCPCS: 93005; 99212 ==

== ENCOUNTER 2024-11-12 11:53 | Outpatient (REF) | payer MEDICARE, SELFPAY ==
[2024-11-12 12:03] LABS: MANUAL DIFF FLAG NO
[2024-11-12 12:15] LABS: Basophils Percent Auto 0.5 % (0-2); Eosinophils Absolute Auto 0.3 X10*3/uL (0.0-0.4); Eosinophils Percent Auto 3.4 % (0-4); Hematocrit 30.9 % (37.0-47.0); Imm Gran Abs Auto 0.06 X10*3/uL (0.00-0.03); Imm Gran Pct Auto 0.8 % (0.0-0.4); Lymphocytes Absolute Auto 2.1 X10*3/uL (1.2-4.9); Lymphocytes Percent Auto 27.2 % (20-40); Mean Corpuscular HGB Conc 32.4 g/dl (31.0-35.0); Mean Corpuscular Hemoglobin 31.3 pg (27.0-33.0); Mean Corpuscular Volume 96.6 fL (80.0-98.0); Monocytes Absolute Auto 0.8 X10*3/uL (0.1-1.2); Monocytes Percent Auto 10.4 % (2-11); Neutrophils Absolute Auto 4.4 x10*3/uL (2.0-8.3); Neutrophils Percent Auto 57.7 % (45-73); Platelet Count 279 X10*3/uL (160-400); Red Cell Distribution Width 14.1 % (11.0-16.0); White Blood Count 7.6 X10*3/uL (4.8-10.8)
--- OUTSIDE RECORDS SUMMARY | 2024-11-12 12:31 | XMS_ITS | Encounter Summary ---
Author Organization [employer] Address [address] [facility] [address] [place] [address] Care Team Providers Care Wafer Fabricator Name Role Phone Unavailable Primary Care Provider Unavailabl e Reason for Visit * Reason Comments Med Refill Encounter Details Date Type Department Care Team (Late st Contact Info) Description 02/28/2024 Refill [facility] MEDICINE [address] [place] [address] Alessandra Mcnair MD Social History Tobacco Use [...]
--- OUTSIDE RECORDS SUMMARY | 2024-11-12 12:31 | XMS_ITS | Clinical Summary ---
Author Organization [employer] Address [address] [place] [address] [address] [address] Care Team Providers Care Reordering Clerk Name Role Phone Unavailable Primary Care Provider [...]
[2024-11-12 12:33] LABS: Anion Gap 12 (12-20); Blood Urea Nitrogen 31 mg/dL (9-16); Calcium 8.7 mg/dL (8.4-10.2); Carbon Dioxide 29 mmol/L (22-29); Chloride 106 mmol/L (96-108); Cholesterol 187 mg/dL (<200); Estimated Glomerular Filt Rate 35; Glucose Fasting 89 mg/dL (60-99); HDL Cholesterol 74 mg/dL (>40); LDL Cholesterol Calculated 95 mg/dL (<100); Potassium 4.5 mmol/L (3.3-5.1); Sodium 142 mmol/L (135-145); Triglycerides 91 mg/dL (<150)
== END 2024-11-12 11:54 | disposition home or self-care (01) ==
LOC: HO.HVNA 11:53
PROVIDERS: Visit Provider Internal Medicine Hypertension Specialist
DX: D64.9 Anemia, unspecified (principal); E78.5 Hyperlipidemia, unspecified
CPT/HCPCS: 36415; 80048; 80061; 85025

== ENCOUNTER 2024-11-13 14:07 | Outpatient (AMB) | payer OTHER, SELFPAY ==
[2024-11-13 14:09] VITALS: BP 158/70; PULSE 63; O2SAT 91; BMI 32.1
--- NOTE | 2024-11-13 14:09 | HO.NEPHOV ---
Vital Signs 11/13/24 14:09 11/13/24 14:24 Height 5 ft 6 in Weight 199 lb BMI 32.1 BP 158/70 H 146/60 H Blood Pressure Location Lt brachial Lt brachial Position Sitting Sitting Pulse 63 Pulse Source Pulse Oximeter Pulse Oximetry (%) 91 L Oxygen Delivery Method Room Air Intake Visit Reasons: RADHA/ Conf Exhibit Cleaner Required: No Accompanied by: Daughter Allergies hydrochlorothiazide [From ZESTORETIC] Allergy (Intermediate, Verified 11/13/24 14:12) FELT FAINT, syncope lisinopril [LISINOPRIL] Allergy (Intermediate, Verified 11/13/24 14:12) Cough Medication List - Last Reconciled 11/13/24 by Benson Li MD albuterol sulfate 90 mcg/actuation 2 puffs inhalation Q4-6H PRN alendronate 70 mg PO QWEEK amiodarone 200 mg PO DAILY 90 days apixaban (Eliquis) 2.5 mg PO BID 90 days benzonatate 200 mg PO ONCE PRN budesonide-formoterol 160-4.5 mcg/actuation (Symbicort) 2 puffs inhalation ONCE calcium carbonate-vitamin D3 600 mg-5 mcg (200 unit) 1 tab PO DAILY dapagliflozin propanediol (Farxiga) 10 mg PO DAILY ferrous sulfate 325 mg PO DAILY fluoxetine 20 mg PO DAILY furosemide 20 mg PO DAILY guaifenesin 400 mg PO BID ipratropium-albuterol 0.5 mg-3 mg(2.5 mg base)/3 mL 3 mL inhalation Q4H PRN isosorbide mononitrate ER 30 mg See Protocol PO DAILY mecobalamin (vitamin B12) 2,000 mcg PO DAILY memantine 10 mg PO BID metoprolol succinate ER (Toprol XL) 100 mg PO DAILY azqxylwf-slxa-JK-calcium-mins 18 mg iron-400 mcg-500 mg Ca (Women's One Daily) 1 tab PO DAILY nitroglycerin 0.4 mg sublingual Q5M PRN pravastatin 40 mg PO BEDTIME [facility] Medical History History of cardioversion (~03/2024) CKD (chronic kidney disease) Hypoxemia Dyspnea on exertion Cardiomyopathy Obesity (BMI 30-39.9) Cataract Wears dentures Use of cane as ambulatory aid Arthritis Low back pain High cholesterol HTN (hypertension) Environmental and seasonal allergies Restrictive lung disease Essential hypertension Atherosclerotic cardiovascular disease COPD (chronic obstructive pulmonary disease) Surgical History History of esophagogastroduodenoscopy (EGD) Hx of colonoscopy History of tubal ligation History of ankle surgery History of lumpectomy of left breast Family History Father Family history of cancer Mother Colon cancer Alzheimer disease Social History Household Members: Family Household Members Other:: SON LIVES IN NEXT APARTMENT Housing: House Are you a primary medicare contact specialist to a significant other at home: Yes (grandson age 13, son and daughter supportive) Do you presently have visiting nurse or other home services: Yes Alcohol intake: current Alcohol intake frequency: does not drink Patient Tobacco Use Status: Former Tobacco user Tobacco use type: Cigarette Advance Directives Date on File: 10/17/23 service: No Physical Exam Vital Signs: Last Vital Signs Pulse 63 11/13/24 14:09 BP 158/70 H 11/13/24 14:09 Pulse Ox 91 L 11/13/24 14:09 Oxygen Delivery Method Room Air 11/13/24 14:09 BMI result Body Mass Index 32.1 Awake. Comfortable. Neck is supple. Mucosa moist. Lungs bilateral scattered rhonchi. Heart S1-S2 heard no gallop. Abdomen soft. Extremities no edema. No involuntary movements. No myoclonus. Results Reviewed Nephrology Results: Hgb 10.0 g/dl (12.0-16.0) L 11/12/24 WBC 7.6 X10*3/uL (4.8-10.8) 11/12/24 Plt Count 279 X10*3/uL (160-400) 11/12/24 Sodium 142 mmol/L (135-145) 11/12/24 Potassium 4.5 mmol/L (3.3-5.1) 11/12/24 Chloride 106 mmol/L (96-108) 11/12/24 Carbon Dioxide 29 mmol/L (22-29) 11/12/24 BUN 31 mg/dL (9-16) H 11/12/24 Creatinine 1.44 mg/dL (0.5-1.4) H 11/12/24 Calcium 8.7 mg/dL (8.4-10.2) 11/12/24 Assessment & Plan Assessment & Plan (1) RADHA (acute kidney injury): Code(s): N17.9 - Acute kidney failure, unspecified Category: Medical (2) CKD (chronic kidney disease): Code(s): N18.9 - Chronic kidney disease, unspecified Category: Medical Qualifiers: Chronic kidney disease stage: stage 3 (moderate) Chronic kidney disease stage 3 subtype: stage 3b (GFR 30-44) Qualified Code(s): N18.32 - Chronic kidney disease, stage 3b (3) Anemia: Code(s): D64.9 - Anemia, unspecified Category: Medical Plan Elderly woman with COPD and a.flutter s/p cardioversion sustained RADHA due to hypoperfusion from aggressive diuresis Clinically appears euvolemic today Currently on Lasix 40 mg QD BP is acceptable Goal is to slow the progression of kidney disease Keep on low salt diet Continue to avoid nephrotoxins Agree with adding Farxiga Anemia Multifactorial HCT has improved Orders: Orders Basic Metabolic Panel 4 Months N18.32 - Chronic kidney disease, stage 3b Complete Blood Count Auto Diff 4 Months N18.32 - Chronic kidney disease, stage 3b Lipid Panel 4 Months N18.32 - Chronic kidney disease, stage 3b Coding Level of Care Code Est Pt Level 4 (04421) Diagnoses RADHA (acute kidney injury) N17.9 Stage 3b chronic kidney disease N18.32 Chronic kidney disease stage: stage 3 (moderate) Chronic kidney disease stage 3 subtype: stage 3b (GFR 30-44) Anemia D64.9
[2024-11-13 14:24] VITALS: BP 146/60
== END 2024-11-13 14:29 | disposition home or self-care (01) ==
PROVIDERS: PCP Nurse Practitioner Family; Visit Provider Internal Medicine Hypertension Specialist
DX: N17.9 Acute kidney failure, unspecified (principal); N18.32 Chronic kidney disease, stage 3b; D64.9 Anemia, unspecified
CPT/HCPCS: 99214

== ENCOUNTER → 2024-11-13 14:07 | Outpatient (BNVA) | payer OTHER, SELFPAY | PROVIDERS: PCP Nurse Practitioner Family; Visit Provider Internal Medicine Hypertension Specialist | DX: N18.32 Chronic kidney disease, stage 3b (principal); N17.9 Acute kidney failure, unspecified; D64.9 Anemia, unspecified | CPT/HCPCS: 99212 ==

== ENCOUNTER 2024-12-10 08:36 | Observation (INO) | payer OTHER, SELFPAY ==
[2024-12-10] VITALS (7 sets, daily range): BP systolic 154–190; BP diastolic 50–80; PULSE 50–57; RESP 14–20; TEMP 36.2–37.1; O2SAT 95–98; BMI 32.6
--- NOTE | ~2024-12-10 | CT_ITS ---
EXAMINATION: CT ABDOMEN PELVIS WITHOUT IV CONTRAST HISTORY: L flank pain unclear if she fell, altered COMPARISON: Comparison is made with the prior examination dated 09/17/2022. TECHNIQUE: CT scan of the abdomen and pelvis was performed without contrast using standard departmental protocol. Coronal and sagittal reformatted images were generated and reviewed. Oral contrast material was not administered at the request of the referring physician. This CT exam was performed with one or more of the following dose reduction techniques: automated exposure control, adjustment of the mA and/or kV according to patient size, use of iterative reconstruction technique. DLP: 850 mGy-cm FINDINGS: LOWER CHEST: The visualized lung bases are clear. There is no pleural effusion. CARDIOVASCULATURE: The heart is normal in size. There is no pericardial effusion. LIVER: The liver is normal in size and contour. The liver has an unremarkable unenhanced appearance. GALLBLADDER / BILE DUCTS: The gallbladder is unremarkable. There is no intra or extrahepatic biliary ductal dilatation. SPLEEN: The spleen is normal in size and has an unremarkable unenhanced appearance. PANCREAS: The pancreas has an unremarkable unenhanced appearance. ADRENAL GLANDS: The right adrenal gland is unremarkable. There is hyperplasia of the left adrenal gland. KIDNEYS/RETROPERITONEUM: No renal calculi are identified. There is prominence of the right renal collecting system without evidence of an obstructing calculus. There is scarring at the upper pole of the left kidney without change. LYMPH NODES: No retroperitoneal lymphadenopathy is identified in the abdomen or pelvis. VASCULATURE: The abdominal aorta demonstrates atherosclerotic calcification, but is normal in caliber. MESENTERY/PERITONEUM: No free fluid. No masses. There is no free intraperitoneal gas. STOMACH: The stomach is collapsed, limiting evaluation. SMALL BOWEL: The small bowel is normal in caliber. COLON: The colon is unremarkable. APPENDIX: The appendix is not seen, however no inflammatory changes are seen adjacent to the cecum. URINARY BLADDER/PELVIC ORGANS: The urinary bladder is unremarkable. The uterus has an unremarkable unenhanced appearance. BONES / SOFT TISSUES: Again seen is a severe chronic compression deformity of T12. No acute osseous fracture is seen. CT/CT abdomen pelvis wo IV con IMPRESSION: 1. No evidence of traumatic mineral pelvis on this unenhanced examination. Please note that evaluation for solid organ injury is limited by lack of intravenous contrast material. 2. Prominence of the right renal collecting system without evidence of an obstructing calculus. Outpatient CT urogram should be considered. Electronically signed by: Aleksander Singh MD 12/10/2024 10:07 AM EDT
--- NOTE | ~2024-12-10 | CT_ITS ---
EXAMINATION: CT HEAD WITHOUT CONTRAST CLINICAL INFORMATION: change in mental status on blood thinners COMPARISON: CT dated July 18, 2014 is not available on PACS. TECHNIQUE: Contiguous axial imaging was performed from the skull base to vertex without intravenous administration of contrast. This CT examination was performed using dose optimization techniques as appropriate, variously including the following: *Automated exposure control *Adjustment of mA and/or kV according to patient size (this includes techniques or standardized protocols for targeted exams where dose is matched to indication/reason for exam; i.e. extremities or head) *Use of iterative reconstruction technique DLP: 601.67 mGy-cm FINDINGS: Bony calvarium is intact. Skull base is intact. Old traumatic deformities, nasal bones and nasal septum. No acute intracranial hemorrhage, mass effect, midline shift, hydrocephalus or herniation. Bilateral multifocal patchy deep periventricular white matter hypodensities involving centrum semiovale and perez radiata. Prominence of the extra-axial CSF spaces cerebral sulci and ventricles. Calcified plaques in the V4 segments of the vertebral arteries and the cavernous supracavernous segments both ICAs. No air-fluid levels in the included paranasal sinuses. Tympanic cavities and mastoid cells are aerated. Osteopenia versus osteoporosis. Edentulous, maxilla. There is a 1 cm partially calcified nodule in the superior right parietal soft tissue scalp and focal calcification in the superior left parietal soft tissue scalp.. CT/CT head/brain wo IV con IMPRESSION: No acute fracture, bony calvarium. No acute intracranial hemorrhage. Old traumatic deformities, nasal bones and nasal septum. Small vessel occlusive disease. Global cerebral atrophy. Electronically signed by: Suresh Segovia MD 12/10/2024 10:04 AM EDT
--- NOTE | ~2024-12-10 | XR_ITS ---
EXAMINATION: XR CHEST 1 VIEW HISTORY: weakness, cough COMPARISON: Comparison is made with the prior examination dated 12/28/2023. FINDINGS: A single AP portable view of the chest performed at 9:03 AM is submitted. The lungs are expanded and clear. There is no pleural effusion, pneumothorax, or pulmonary vascular congestion. The heart is normal in size. The aorta is calcified. There is degenerative disc disease of the spine. XR/XR chest 1V IMPRESSION: No acute cardiopulmonary abnormality. Electronically signed by: Aleksander Singh MD 12/10/2024 09:40 AM EDT
--- NOTE | 2024-12-10 08:58 | ECG_ITS ---
Test Reason : weakness Blood Pressure : */* mmHG Vent. Rate : 49 BPM Atrial Rate : 49 BPM P-R Int : 202 ms QRS Dur : 98 ms QT Int : 526 ms P-R-T Axes : 74 34 73 degrees QTcB Int : 475 ms Sinus bradycardia Nonspecific ST and T wave abnormality Abnormal ECG When compared with ECG of 26-Mar-2024 10:07, Premature ventricular complexes are no longer Present Nonspecific T wave abnormality, improved in Inferior leads T wave inversion no longer evident in Lateral leads Referred By: Wendy Campoverde Electronically Signed By: Rj Duncan
--- NOTE | 2024-12-10 09:22 | ED.AMS ---
HPI - Altered Mental Status General Chief Complaint: Altered Mental Status Stated Complaint: AMS, hx dementia, ?UTI, -neg stroke scale Time Seen by Provider: 12/10/24 08:45 Source: patient, EMS and old records reviewed Mode of arrival: EMS Limitations: altered mental status History of Present Illness ED Provider: ISIDRO DOLL narrative: 79 yo female with mild cognitive impairment, CKD, aflutter on eliquis, pneumonia, COD on 2L NC, CHF who presents with changes in mental status and weakness following a stressful event on Sunday. The patient is confused to place and time on arrival to ED which is unusual. The patient has no complaints other than mild L flank pain. I asked her if she has fallen and she states I do not think so. Her daughter also sent off a urine yesterday but test pending. The patient denies n/v/d, CP/SOB. She is very vague. No sleeping medications taken or hx of drug use. MD complaint: confusion and weakness Onset (ago): day(s) (couple ) Timing confirmed by: family member and caregiver Severity: moderate Consistency of symptoms: constant Context: other Associated symptoms: loss of appetite, weakness and other (back pain) Related Data Home Medications ?Medication ?Instructions ?Recorded ?Confirmed memantine 10 mg tablet 10 mg PO BID 11/25/20 11/13/24 calcium 600 mg (as 1 tab PO DAILY 10/12/23 11/13/24 carbonate)-vitamin D3 5 mcg (200 unit) tablet fluoxetine 20 mg capsule 20 mg PO DAILY 10/12/23 11/13/24 pravastatin 40 mg tablet 40 mg PO BEDTIME 11/01/23 11/13/24 multivit-iron 18 mg-folic acid 400 1 tab PO DAILY 12/28/23 11/13/24 mcg-calcium 500 mg-minerals tablet (Women's One Daily) ferrous sulfate 325 mg (65 mg 325 mg PO DAILY 01/15/24 11/13/24 iron) tablet,delayed release benzonatate 200 mg capsule 200 mg PO ONCE PRN Cough 01/29/24 11/13/24 budesonide-formoterol HFA 160 2 puff inhalation ONCE 01/29/24 11/13/24 mcg-4.5 mcg/actuation aerosol inhaler (Symbicort) guaifenesin 400 mg tablet 400 mg PO BID 04/28/24 11/13/24 alendronate 70 mg tablet 70 mg PO QWEEK 06/09/24 11/13/24 mecobalamin (vitamin B12) 1,000 2,000 mcg PO DAILY 06/09/24 11/13/24 mcg chewable tablet Previous Rx's ?Medication ?Instructions ?Recorded nitroglycerin 0.4 mg sublingual 0.4 mg sublingual Q5M PRN chest 01/25/23 tablet pain #14 tabs albuterol sulfate 90 mcg/actuation 2 puff inhalation Q4-6H PRN for 03/03/24 aerosol inhaler wheezing #8.5 ea amiodarone 200 mg tablet 200 mg PO DAILY 90 days #90 tabs 03/28/24 ipratropium 0.5 mg-albuterol 3 mg 3 ml inhalation Q4H PRN shortness 05/08/24 (2.5 mg base)/3 mL nebulization of breath or wheezing #180 mL soln metoprolol succinate 100 mg 100 mg PO DAILY #90 tabs 05/13/24 tablet,extended release 24 hr (Toprol XL) isosorbide mononitrate 30 mg 30 mg PO DAILY #90 tabs 06/27/24 tablet,extended release 24 hr apixaban 2.5 mg tablet (Eliquis) 2.5 mg PO BID 90 days #180 tabs 09/25/24 dapagliflozin propanediol 10 mg 10 mg PO DAILY #90 tabs 11/06/24 tablet (Farxiga) furosemide 20 mg tablet 20 mg PO DAILY #90 tabs 11/12/24 Allergies Allergy/AdvReac Type Severity Reaction Status Date / Time hydrochlorothiazide Allergy Intermediate FELT Verified 12/10/24 08:56 [From ZESTORETIC] FAINT, syncope lisinopril [LISINOPRIL] Allergy Intermediate Cough Verified 12/10/24 08:56 Review of Systems Review of Systems: ROS unable to be obtained due to altered mental status PMF Past Medical History Attestation statement: The following information was validated with the patient. Source: old records reviewed Medical History History of cardioversion (~03/2024) CKD (chronic kidney disease) Hypoxemia Dyspnea on exertion Cardiomyopathy Obesity (BMI 30-39.9) Cataract Wears dentures Use of cane as ambulatory aid Arthritis Low back pain High cholesterol HTN (hypertension) Environmental and seasonal allergies Restrictive lung disease Essential hypertension Atherosclerotic cardiovascular disease COPD (chronic obstructive pulmonary disease) Surgical History History of esophagogastroduodenoscopy (EGD) Hx of colonoscopy History of tubal ligation History of ankle surgery History of lumpectomy of left breast Family History Family History Father Family history of cancer Mother Colon cancer Alzheimer disease Social History Social History Household Members: Family Household Members Other:: SON LIVES IN NEXT APARTMENT Housing: House Are you a primary career guidance counselor to a significant other at home: Yes (grandson age 13, son and daughter supportive) Do you presently have visiting nurse or other home services: Yes Alcohol intake: current Alcohol intake frequency: holidays/special occasions only Patient Tobacco Use Status: Former Tobacco user Tobacco use type: Cigarette Smoked in Last 30 Days: No Use of substances other than those prescribed or required for medical reasons: No Advance Directives: Yes Advance Directives on File: Yes Advance Directives Date on File: 10/17/23 Do you have a plan to hurt others: No Plan service: No Physical Exam ED Vital Signs: Vital Signs - 24 hr 12/10/24 08:51 12/10/24 08:58 Temperature 97.8 F 97.8 F Pulse Rate 51 51 Respiratory Rate 16 16 Blood Pressure 157/50 H 157/50 H Pulse Oximetry 98 98 Oxygen Delivery Method Nasal Cannula Nasal Cannula BMI result Body Mass Index 32.6 Appearance: Somnolent but easily woken. Oriented to person. No acute distress. Eyes: Pupils equal, round and reactive to light. ENT: Pharynx normal. atraumatic Neck: Normal inspection. Neck supple. CVS: Normal heart rate and rhythm. Pulses normal. Respiratory: No respiratory distress. Breath sounds normal. Abdomen: Soft and nontender. Back: atraumatic Skin: Skin warm and dry. Normal skin color. Extremities: No lower extremity edema. R arm intermittent twitching rhythmic in R hand on arrival but resolved soon after awake during the movements Neuro: Oriented X 1. No motor deficit. No sensory deficit. CN2-12 intact Course Course Course Narrative: still not at baseline per daughter she does seem to have perked up more I see no further unusual twitching isolated to right hand and she looks much better and is more awake at this time I think given the acute change encephalopathy I would admit for MRI and EEG Medical Decision Making Medical Decision Making [facility] Narrative: 79 yo female with mild cognitive impairment, CKD, aflutter on eliquis, pneumonia, COD on 2L NC, CHF here with unexplained AMS and weakness after significant life stressor that required a contentious court hearing. She is weak and altered appearing at this time will need basic labs, toxic and metabolic workup, CT head/abdomen pelvis, VBG. There is a broad differential at this time given her santo weakness/confusion. Differential Diagnosis Differential Diagnoses: The differential diagnosis associated with the presentation includes encephalopathy, ICH, toxic or metabolic cause, CO2 retention, partial seizures Admission/Observation Consideration of admission/observation: Escalation of care including admission/observation considered admit for further workup Consult Healthcare Provider Management of the patient was discussed with: Hospitalist (will admit) Lab Data [facility] Lab Attestation statement: I reviewed the patient's lab results. 12/10/24 11:05 12/10/24 10:27 Labs: Lab Results 12/10/24 12/10/24 12/10/24 Range/Units 09:55 10:27 10:38 WBC (4.8-10.8) X10*3/uL RBC (4.20-5.50) X10*6/uL Hgb (12.0-16.0) g/dl Hct (37.0-47.0) % MCV (80.0-98.0) fL MCH (27.0-33.0) pg MCHC (31.0-35.0) g/dl RDW (11.0-16.0) % Plt Count (160-400) X10*3/uL MPV (9.4-12.3) fL Immature Gran % (Auto) (0.0-0.4) % Neut % (Auto) (45-73) % Lymph % (Auto) (20-40) % [place] % (Auto) (2-11) % Eos % (Auto) (0-4) % Baso % (Auto) (0-2) % Lymph # (Auto) (1.2-4.9) X10*3/uL [place] # (Auto) (0.1-1.2) X10*3/uL Eos # (Auto) (0.0-0.4) X10*3/uL Baso # (Auto) (0.0-0.2) X10*3/uL Abs Immat Gran (auto) (0.00-0.03) X10*3/uL Absolute Neuts (auto) (2.0-8.3) x10*3/uL Absolute Nucleated RBC (0.0-0.012) X10*3/uL Nucleated RBC % (auto) (0.0-0.2) /100WBC ESR (0-20) MM/HR VBG pH 7.45 H (7.32-7.43) VBG pCO2 41 mmHg VBG pO2 62 mmHg VBG HCO3 29 H (22-26) mmol/L VBG O2 Saturation 91.0 % VBG Base Excess 5.1 mmol/L Sodium 141 (135-145) mmol/L Potassium 4.7 (3.3-5.1) mmol/L Chloride 106 (96-108) mmol/L Carbon Dioxide 26 (22-29) mmol/L Anion Gap 14 (12-20) BUN 26 H (9-16) mg/dL Creatinine 1.61 H (0.5-1.4) mg/dL Estim Creat Clear Calc 31.2 Estimated GFR 31 Random Glucose 106 (60-115) mg/dL Lactic Acid 1.7 (0.5-2.0) mmol/L Calcium 9.4 D (8.4-10.2) mg/dL Magnesium 2.7 H (1.6-2.6) mg/dL Total Bilirubin 0.3 (0.0-1.0) mg/dL Direct Bilirubin 0.2 (0.0-0.5) mg/dL AST 36 H (5-31) U/L ALT 34 H (0-31) U/L Alkaline Phosphatase 73 (39-117) U/L Ammonia (13-55) umol/L Total Creatine Kinase 38 (26-140) U/L Troponin I High Sens 3.9 D (<3.5-17.0) ng/L C-Reactive Protein 2.39 H (< or = 0.50) mg/dL B-Natriuretic Peptide 520 H (<100) pg/mL Total Protein 8.7 H (6.5-8.0) g/dL Albumin 4.0 (3.5-5.0) g/dL Lipase 26 (8-78) U/L Procalcitonin 0.04 ng/mL TSH (0.32-4.0) uIU/mL Urine Color Urine Appearance Urine pH (5.0-9.0) Ur Specific [place] (1.005-1.025) Urine Protein (Neg-Trace) mg/dL Urine Glucose (UA) (Negative) mg/dL Urine Ketones (Negative) mg/dL Urine Blood (Negative) Urine Nitrite (Negative) Ur Leukocyte Esterase (Negative) Urine RBC (0-2) /HPF Urine WBC (0-5) /HPF Ur Squamous Epith Cells (0-2) /HPF Urine Bacteria (None Seen) Hyaline Casts (0-2) /LPF Influenza Type A (PCR) NEGATIVE (Negative) Influenza Type B (PCR) NEGATIVE (Negative) RSV RNA Qual (PCR) NEGATIVE (Negative) SARS-CoV-2 RNA (RT-PCR) NEGATIVE (Negative) 12/10/24 12/10/24 Range/Units 11:05 11:22 WBC 9.8 (4.8-10.8) X10*3/uL RBC 3.61 L (4.20-5.50) X10*6/uL Hgb 10.8 L (12.0-16.0) g/dl Hct 34.3 L (37.0-47.0) % MCV 95.0 (80.0-98.0) fL MCH 29.9 (27.0-33.0) pg MCHC 31.5 (31.0-35.0) g/dl RDW 13.9 (11.0-16.0) % Plt Count 291 (160-400) X10*3/uL MPV 9.5 (9.4-12.3) fL Immature Gran % (Auto) 0.3 (0.0-0.4) % Neut % (Auto) 70.1 (45-73) % Lymph % (Auto) 19.8 L (20-40) % [place] % (Auto) 8.2 (2-11) % Eos % (Auto) 1.3 (0-4) % Baso % (Auto) 0.3 (0-2) % Lymph # (Auto) 1.9 (1.2-4.9) X10*3/uL [place] # (Auto) 0.8 (0.1-1.2) X10*3/uL Eos # (Auto) 0.1 (0.0-0.4) X10*3/uL Baso # (Auto) 0.0 (0.0-0.2) X10*3/uL Abs Immat Gran (auto) 0.03 (0.00-0.03) X10*3/uL Absolute Neuts (auto) 6.9 (2.0-8.3) x10*3/uL Absolute Nucleated RBC 0.000 (0.0-0.012) X10*3/uL Nucleated RBC % (auto) 0.0 (0.0-0.2) /100WBC ESR 79 H (0-20) MM/HR VBG pH (7.32-7.43) VBG pCO2 mmHg VBG pO2 mmHg VBG HCO3 (22-26) mmol/L VBG O2 Saturation % VBG Base Excess mmol/L Sodium (135-145) mmol/L Potassium (3.3-5.1) mmol/L Chloride (96-108) mmol/L Carbon Dioxide (22-29) mmol/L Anion Gap (12-20) BUN (9-16) mg/dL Creatinine (0.5-1.4) mg/dL Estim Creat Clear Calc Estimated GFR Random Glucose (60-115) mg/dL Lactic Acid (0.5-2.0) mmol/L Calcium (8.4-10.2) mg/dL Magnesium (1.6-2.6) mg/dL Total Bilirubin (0.0-1.0) mg/dL Direct Bilirubin (0.0-0.5) mg/dL AST (5-31) U/L ALT (0-31) U/L Alkaline Phosphatase (39-117) U/L Ammonia 36 (13-55) umol/L Total Creatine Kinase (26-140) U/L Troponin I High Sens (<3.5-17.0) ng/L C-Reactive Protein (< or = 0.50) mg/dL B-Natriuretic Peptide (<100) pg/mL Total Protein (6.5-8.0) g/dL Albumin (3.5-5.0) g/dL Lipase (8-78) U/L Procalcitonin ng/mL TSH 0.81 (0.32-4.0) uIU/mL Urine Color Yellow Urine Appearance Clear Urine pH 7.0 (5.0-9.0) Ur Specific [place] 1.020 (1.005-1.025) Urine Protein 30 (1+) H (Neg-Trace) mg/dL Urine Glucose (UA) 500 H (Negative) mg/dL Urine Ketones Negative (Negative) mg/dL Urine Blood Negative (Negative) Urine Nitrite Negative (Negative) Ur Leukocyte Esterase Negative (Negative) Urine RBC 0-2 (0-2) /HPF Urine WBC 0-5 (0-5) /HPF Ur Squamous Epith Cells 0-2 (0-2) /HPF Urine Bacteria None Seen (None Seen) Hyaline Casts 0-2 (0-2) /LPF Influenza Type A (PCR) (Negative) Influenza Type B (PCR) (Negative) RSV RNA Qual (PCR) (Negative) SARS-CoV-2 RNA (RT-PCR) (Negative) Independent Interpretation I performed an independent interpretation of an: EKG, Plain X-Ray (normal ) and CT Scan (no acute findings) Interpretation: Rate: 49 Rhythm: sinus bradycardia [place]: normal Normal P waves. Normal JOHN. Normal QRS complex. ST T wave : no GRACIELA, nonspecific ST T wave changes lateral leads qTC: 475 prior studies: no sig change from prior The study has been interpreted contemporaneously by me. . Radiology Impression Discussion of test interpretation with radiology: I have reviewed the radiologist's reading. Independent Historian Clinical information obtained from an independent historian. History obtained from or confirmed by: Other (daughter) External Record Review External record reviewed: Inpatient record and Outpatient record Discharge Plan Discharge Clinical Impression: Encephalopathy acute Patient Disposition: Admitted As Inpatient Prescriptions: No Action nitroglycerin 0.4 mg tablet, sublingual 0.4 mg sublingual Q5M PRN (Reason: chest pain) Qty: 14 2RF Rx Instructions: do not exceed 3 doses per episode albuterol sulfate 90 mcg/actuation HFA aerosol inhaler 2 puff inhalation Q4-6H PRN (Reason: for wheezing) Qty: 8.5 3RF amiodarone 200 mg tablet 200 mg PO DAILY 90 Days Qty: 90 3RF ipratropium-albuterol 0.5 mg-3 mg(2.5 mg base)/3 mL solution for nebulization 3 ml inhalation Q4H PRN (Reason: shortness of breath or wheezing) Qty: 180 3RF metoprolol succinate [Toprol XL] 100 mg tablet extended release 24 hr 100 mg PO DAILY Qty: 90 1RF isosorbide mononitrate 30 mg tablet extended release 24 hr 30 mg PO DAILY Qty: 90 3RF Protocol: Hold for SBP< HOLD for SBP < : 90 Eliquis 2.5 mg tablet 2.5 mg PO BID 90 Days Qty: 180 2RF furosemide 20 mg tablet 20 mg PO DAILY Qty: 90 3RF calcium carbonate-vitamin D3 600 mg-5 mcg (200 unit) tablet 1 tab PO DAILY fluoxetine 20 mg capsule 20 mg PO DAILY pravastatin 40 mg tablet 40 mg PO BEDTIME Women's One Daily 18 mg iron-400 mcg-500 mg Ca Tablet 1 tab PO DAILY budesonide-formoterol [Symbicort] 160-4.5 mcg/actuation HFA aerosol inhaler 2 puff INHALATION ONCE memantine 10 mg tablet 10 mg PO BID alendronate 70 mg tablet 70 mg PO QWEEK benzonatate 200 mg capsule 200 mg PO ONCE PRN (Reason: Cough) guaifenesin 400 mg tablet 400 mg PO BID ferrous sulfate 325 mg (65 mg iron) tablet,delayed release (DR/EC) 325 mg PO DAILY mecobalamin (vitamin B12) 1,000 mcg tablet,chewable 2,000 mcg PO DAILY dapagliflozin propanediol [Farxiga] 10 mg tablet 10 mg PO DAILY Qty: 90 1RF Print Language: Mos[place]
[2024-12-10 10:42] LABS: VBG Base Excess 5.1 mmol/L; VBG HCO3 29 mmol/L (22-26); VBG pCO2 41 mmHg; VBG pH 7.45 (7.32-7.43); VBG pO2 62 mmHg
[2024-12-10 10:46] LABS: Venous Blood Gas Refer to POC result
[2024-12-10 10:53] LABS: Lactic Acid 1.7 mmol/L (0.5-2.0)
[2024-12-10 10:58] LABS: Influenza A PCR NEGATIVE (Negative); Influenza B PCR NEGATIVE (Negative); Resp Syncy Virus RNA Qual PCR NEGATIVE (Negative); SARS COV2 PCR INHOUSE NEGATIVE (Negative)
[2024-12-10 10:59] LABS: B Type Natriuretic Peptide 520 pg/mL (<100)
[2024-12-10 11:00] LABS: Troponin-I High Sensitivity 3.9 ng/L (<3.5-17.0)
[2024-12-10 11:04] LABS: Alanine Aminotransferase 34 U/L (0-31); Alkaline Phosphatase 73 U/L (39-117); Anion Gap 14 (12-20); Aspartate Amino Transferase 36 U/L (5-31); Bilirubin Direct 0.2 mg/dL (0.0-0.5); Bilirubin Total 0.3 mg/dL (0.0-1.0); Blood Urea Nitrogen 26 mg/dL (9-16); C Reactive Protein 2.39 mg/dL (< or = 0.50); Calcium 9.4 mg/dL (8.4-10.2); Carbon Dioxide 26 mmol/L (22-29); Chloride 106 mmol/L (96-108); Creatinine Clr Calc Pharmacy 31.2; Estimated Glomerular Filt Rate 31; Glucose Random 106 mg/dL (60-115); Lipase 26 U/L (8-78); Magnesium 2.7 mg/dL (1.6-2.6); Potassium 4.7 mmol/L (3.3-5.1); Sodium 141 mmol/L (135-145); Total Protein 8.7 g/dL (6.5-8.0)
[2024-12-10 11:11] LABS: MANUAL DIFF FLAG NO
[2024-12-10 11:14] LABS: Basophils Percent Auto 0.3 % (0-2); Eosinophils Absolute Auto 0.1 X10*3/uL (0.0-0.4); Eosinophils Percent Auto 1.3 % (0-4); Hematocrit 34.3 % (37.0-47.0); Hemoglobin 10.8 g/dl (12.0-16.0); Imm Gran Abs Auto 0.03 X10*3/uL (0.00-0.03); Imm Gran Pct Auto 0.3 % (0.0-0.4); Lymphocytes Absolute Auto 1.9 X10*3/uL (1.2-4.9); Lymphocytes Percent Auto 19.8 % (20-40); Mean Corpuscular HGB Conc 31.5 g/dl (31.0-35.0); Mean Corpuscular Hemoglobin 29.9 pg (27.0-33.0); Mean Platelet Volume 9.5 fL (9.4-12.3); Monocytes Absolute Auto 0.8 X10*3/uL (0.1-1.2); Monocytes Percent Auto 8.2 % (2-11); Neutrophils Absolute Auto 6.9 x10*3/uL (2.0-8.3); Neutrophils Percent Auto 70.1 % (45-73); Platelet Count 291 X10*3/uL (160-400); Red Blood Count 3.61 X10*6/uL (4.20-5.50); Red Cell Distribution Width 13.9 % (11.0-16.0); White Blood Count 9.8 X10*3/uL (4.8-10.8)
[2024-12-10 11:19] LABS: Procalcitonin 0.04 ng/mL
[2024-12-10 11:28] LABS: Ammonia 36 umol/L (13-55)
[2024-12-10 11:30] LABS: Appearance Urine Clear; Color Urine Yellow; Glucose Urine UA 500 mg/dL (Negative); Leukocyte Esterase Urine Negative (Negative); Nitrite Urine Negative (Negative); UMIC TRIGGER UACC YES; Urine Blood Negative (Negative); Urine Ketones Negative (Negative); Urine Protein 30 (1+) mg/dL (Neg-Trace)
[2024-12-10 11:43] LABS: Bacteria Urine None Seen (None Seen); Hyaline Casts Urine 0-2 /LPF (0-2); RBC Urine 0-2 /HPF (0-2); Squamous Epithelial Cell Urine 0-2 /HPF (0-2); WBC Urine 0-5 /HPF (0-5)
[2024-12-10 11:56] LABS: TSH reflex Free T4 0.81 uIU/mL (0.32-4.0)
[2024-12-10 12:03] LABS: Erythrocyte Sedimentation Rate 79 MM/HR (0-20)
[2024-12-10 12:18] LABS: Amphetamine Screen Urine Not Detected (Not Detect); Barbiturates, Urine Not Detected (Not Detect); Benzodiazepines Screen Urine Not Detected (Not Detect); Buprenorphine Scr Not Detected (Not Detect); Cannabinoid Screen Urine Not Detected (Not Detect); Cocaine Screen Urine Not Detected (Not Detect); Fentanyl, urine Not Detected (Not Detect); Methadone Screen, Urine Not Detected (Not Detect); Opiate Screen Urine Not Detected (Not Detect); Oxycodone Screen Urine Not Detected (Not Detect); Phencyclidine Screen Urine Not Detected (Not Detect)
--- NOTE | 2024-12-10 13:24 | PM.IMHP ---
History of Present Illness Date of Service: 12/10/24 Attending physician on admission: [facility] Chief Complaint: AMS Pt is an 79-year-old female with a PMH significant for?paroxysmal AFib on Eliquis s/p ablation x2, cardiomyopathy, CAD, HFrEF (31%), COPD on 2 L home O2, and CKD 3 who presents to the ED for evaluation of increased confusion and lethargy times 4-5 days. Pt is alert and oriented to self and place, not to time or situation. HPI thus obtained from daughter with whom pt lives with. Daughter notes that pt has mild dementia at baseline, though has been experiencing increased confusion since at least last Sunday. Daughter notes pt is often confused where she is, and saying peculiar things, such as thinking that the police are coming to get her. Yesterday pt had increased confusion and lethargy, was difficult to arouse. Daughter also noticed that patient's left hand was clenched, and right hand was twitching uncontrollably despite pt attempting to stop it. Pt has also been incontinent of urine duirng this time which is unlike her baseline. Daughter notes that last Sunday pt recently started Farxiga, 4 days prior to symptom onset. Daughter also notes there has been increased life stressors in the home. Pt herself complains of diffuse lower back pain, though is uncertain when this began. Denies trauma or fall. Pt otherwise has no acute medical complaints and is resting comfortably in bed. In the ED pt was hypertensive up to 170/75, vitals otherwise stable and WNL for pt. Labs were significant for creatinine 1.61 (baseline 1.44), mildly elevated AST of 36 and ALT of 34, and CRP 2.39. No leukocytosis. Stable normocytic anemia of 10.8/34.3. No significant electrolyte abnormalities. BNP 520 (reduced from prior, likely baseline). Ammonia WNL at 36. Initial troponin 3.9. Lactic acid WNL. CXR showed no acute cardiopulmonary abnormality. CT of head negative for acute fracture or intracranial hemorrhage. Does show global cerebral atrophy and small-vessel occlusive disease. CT of abdomen and pelvis negative for acute abdomen. Does show prominence of right renal collecting system without evidence of obstructing calculus. EKG demonstrated sinus bradycardia of 49 with nonspecific T-wave and ST abnormalities, similar to prior. Pt will be admitted to the hospital under observation for treatment and further evaluation of acute encephalopathy of unclear etiology. Review of Systems Review of Systems: Negative except for that which is stated in the HPI. [facility] Medical History History of cardioversion (~03/2024) CKD (chronic kidney disease) Hypoxemia Dyspnea on exertion Cardiomyopathy Obesity (BMI 30-39.9) Cataract Wears dentures Use of cane as ambulatory aid Arthritis Low back pain High cholesterol HTN (hypertension) Environmental and seasonal allergies Restrictive lung disease Essential hypertension Atherosclerotic cardiovascular disease COPD (chronic obstructive pulmonary disease) Family History Father Family history of cancer Mother Colon cancer Alzheimer disease Surgical History History of esophagogastroduodenoscopy (EGD) Hx of colonoscopy History of tubal ligation History of ankle surgery History of lumpectomy of left breast Social History Household Members: Family Household Members Other:: SON LIVES IN NEXT APARTMENT Housing: House Are you a primary career advisor to a significant other at home: Yes (grandson age 13, son and daughter supportive) Do you presently have visiting nurse or other home services: Yes Alcohol intake: current Alcohol intake frequency: holidays/special occasions only Patient Tobacco Use Status: Former Tobacco user Tobacco use type: Cigarette Smoked in Last 30 Days: No Use of substances other than those prescribed or required for medical reasons: No Advance Directives: Yes Advance Directives on File: Yes Advance Directives Date on File: 10/17/23 Do you have a plan to hurt others: No Plan service: No Meds Allergies Allergy/AdvReac Type Severity Reaction Status Date / Time hydrochlorothiazide Allergy Intermediate FELT Verified 12/10/24 08:56 [From ZESTORETIC] FAINT, syncope lisinopril [LISINOPRIL] Allergy Intermediate Cough Verified 12/10/24 08:56 Home Medications ?Medication ?Instructions ?Recorded ?Confirmed ?Last Taken ?Type memantine 10 mg tablet 10 mg PO BID 11/25/20 11/13/24 03/26/24 06:45 History calcium 600 mg (as 1 tab PO DAILY 10/12/23 11/13/24 12/28/23 History carbonate)-vitamin D3 5 mcg (200 unit) tablet fluoxetine 20 mg capsule 20 mg PO DAILY 10/12/23 11/13/24 03/26/24 06:45 History pravastatin 40 mg tablet 40 mg PO BEDTIME 11/01/23 11/13/24 12/27/23 History multivit-iron 18 mg-folic acid 400 1 tab PO DAILY 12/28/23 11/13/24 12/27/23 History mcg-calcium 500 mg-minerals tablet (Women's One Daily) ferrous sulfate 325 mg (65 mg 325 mg PO DAILY 01/15/24 11/13/24 Unknown History iron) tablet,delayed release benzonatate 200 mg capsule 200 mg PO ONCE PRN Cough 01/29/24 11/13/24 Unknown History budesonide-formoterol HFA 160 2 puff inhalation ONCE 01/29/24 11/13/24 Unknown History mcg-4.5 mcg/actuation aerosol inhaler (Symbicort) guaifenesin 400 mg tablet 400 mg PO BID 04/28/24 11/13/24 Unknown History alendronate 70 mg tablet 70 mg PO QWEEK 06/09/24 11/13/24 Unknown History mecobalamin (vitamin B12) 1,000 2,000 mcg PO DAILY 06/09/24 11/13/24 Unknown History mcg chewable tablet fluticasone propionate 50 1 spray intranasal BID 12/10/24 Unknown History mcg/actuation nasal spray,suspension Physical Exam Vital Signs and Narrative: Vital Signs: Last Vital Signs Temp 98.7 F 12/10/24 13:05 Pulse 51 12/10/24 13:05 Resp 14 12/10/24 13:05 BP 170/75 H 12/10/24 13:05 Pulse Ox 98 12/10/24 13:05 O2 Del Method Room Air 12/10/24 13:05 Oxygen Flow Rate 2 12/10/24 08:51 BMI result Body Mass Index 32.6 General: Alert and oriented to self and place, not to time or situation. In no acute distress Resp: Diminished but clear to auscultation CVS: S1, S2, regular rhythm, slow GI: +BS, NT, no distention Skin: Warm, dry Neuro: Cranial nerves II-XII grossly intact bilaterally. No focal deficits noted. Motor grossly intact bilaterally. Preserved and symmetric ROM and strength of upper and lower extremities bilaterally no upper extremity tremors noted negative pronator drift. Extremities: No edema Psych: Pleasantly confused Results Labs 12/10/24 11:05 12/10/24 10:27 Labs: Laboratory Results - last 24 hr 12/10/24 12/10/24 12/10/24 09:55 10:27 10:38 MCV MCH MCHC RDW Plt Count MPV Immature Gran % (Auto) Neut % (Auto) Lymph % (Auto) [place] % (Auto) Eos % (Auto) Baso % (Auto) Lymph # (Auto) [place] # (Auto) Eos # (Auto) Baso # (Auto) Abs Immat Gran (auto) Absolute Neuts (auto) Absolute Nucleated RBC Nucleated RBC % (auto) ESR VBG pH 7.45 H VBG pCO2 41 VBG pO2 62 VBG HCO3 29 H VBG O2 Saturation 91.0 VBG Base Excess 5.1 Anion Gap 14 Estim Creat Clear Calc 31.2 Estimated GFR 31 Random Glucose 106 Lactic Acid 1.7 Calcium 9.4 D Magnesium 2.7 H Total Bilirubin 0.3 Direct Bilirubin 0.2 AST 36 H ALT 34 H Alkaline Phosphatase 73 Ammonia Total Creatine Kinase 38 C-Reactive Protein 2.39 H B-Natriuretic Peptide 520 H Total Protein 8.7 H Albumin 4.0 Lipase 26 Procalcitonin 0.04 TSH Urine Color Urine Appearance Urine pH Ur Specific Ages [place] Urine Protein Urine Glucose (UA) Urine Ketones Urine Blood Urine Nitrite Ur Leukocyte Esterase Urine RBC Urine WBC Ur Squamous Epith Cells Urine Bacteria Hyaline Casts Urine Opiates Screen Ur Buprenorphine Scrn Ur Oxycodone Screen Urine Methadone Screen Urine Fentanyl Screen Ur Barbiturates Screen Ur Phencyclidine Scrn Ur Amphetamines Screen U Benzodiazepines Scrn Urine Cocaine Screen U Marijuana (THC) Screen Influenza Type A (PCR) NEGATIVE Influenza Type B (PCR) NEGATIVE RSV RNA Qual (PCR) NEGATIVE SARS-CoV-2 RNA (RT-PCR) NEGATIVE 12/10/24 12/10/24 11:05 11:22 MCV 95.0 MCH 29.9 MCHC 31.5 RDW 13.9 Plt Count 291 MPV 9.5 Immature Gran % (Auto) 0.3 Neut % (Auto) 70.1 Lymph % (Auto) 19.8 L [place] % (Auto) 8.2 Eos % (Auto) 1.3 Baso % (Auto) 0.3 Lymph # (Auto) 1.9 [place] # (Auto) 0.8 Eos # (Auto) 0.1 Baso # (Auto) 0.0 Abs Immat Gran (auto) 0.03 Absolute Neuts (auto) 6.9 Absolute Nucleated RBC 0.000 Nucleated RBC % (auto) 0.0 ESR 79 H VBG pH VBG pCO2 VBG pO2 VBG HCO3 VBG O2 Saturation VBG Base Excess Anion Gap Estim Creat Clear Calc Estimated GFR Random Glucose Lactic Acid Calcium Magnesium Total Bilirubin Direct Bilirubin AST ALT Alkaline Phosphatase Ammonia 36 Total Creatine Kinase C-Reactive Protein B-Natriuretic Peptide Total Protein Albumin Lipase Procalcitonin TSH 0.81 Urine Color Yellow Urine Appearance Clear Urine pH 7.0 Ur Specific Ages [place] 1.020 Urine Protein 30 (1+) H Urine Glucose (UA) 500 H Urine Ketones Negative Urine Blood Negative Urine Nitrite Negative Ur Leukocyte Esterase Negative Urine RBC 0-2 Urine WBC 0-5 Ur Squamous Epith Cells 0-2 Urine Bacteria None Seen Hyaline Casts 0-2 Urine Opiates Screen Not Detected Ur Buprenorphine Scrn Not Detected Ur Oxycodone Screen Not Detected Urine Methadone Screen Not Detected Urine Fentanyl Screen Not Detected Ur Barbiturates Screen Not Detected Ur Phencyclidine Scrn Not Detected Ur Amphetamines Screen Not Detected U Benzodiazepines Scrn Not Detected Urine Cocaine Screen Not Detected U Marijuana (THC) Screen Not Detected Influenza Type A (PCR) Influenza Type B (PCR) RSV RNA Qual (PCR) SARS-CoV-2 RNA (RT-PCR) Imaging Radiologist's Impressions: Impressions Chest X-Ray 12/10/24 08:58 IMPRESSION: No acute cardiopulmonary abnormality. Electronically signed by: Aleksander Singh MD 12/10/2024 09:40 AM EDT RP Head CT 12/10/24 08:58 IMPRESSION: No acute fracture, bony calvarium. No acute intracranial hemorrhage. Old traumatic deformities, nasal bones and nasal septum. Small vessel occlusive disease. Global cerebral atrophy. Electronically signed by: Suresh Segovia MD 12/10/2024 10:04 AM EDT RP Abdomen/Pelvis CT 12/10/24 09:31 IMPRESSION: 1. No evidence of traumatic mineral pelvis on this unenhanced examination. Please note that evaluation for solid organ injury is limited by lack of intravenous contrast material. 2. Prominence of the right renal collecting system without evidence of an obstructing calculus. Outpatient CT urogram should be considered. Electronically signed by: Aleksander Singh MD 12/10/2024 10:07 AM EDT RP Assessment and Plan (1) Encephalopathy acute: Status: Acute Plan Pt is an 79-year-old female with a PMH significant for?paroxysmal AFib on Eliquis s/p ablation x2, cardiomyopathy, CAD, HFrEF (31%), COPD on 2 L home O2, and CKD 3 who presents to the ED for evaluation of increased confusion and lethargy times 4-5 days. Pt will be admitted to the hospital under observation for treatment and further evaluation of acute encephalopathy of unclear etiology. 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 Full Code Attending:?Dr. Mohr DVT Prophylaxis: On Eliquis Pt will be admitted to the hospital under observation for treatment and further evaluation of acute encephalopathy of unclear etiology: Medication induced delirium vs worsening dementia from increased home life stressors vs simple partial seizure. Pt will require hospital level care for close monitoring of mentation and cardiac function, as well as additional workup for possible seizure activity. Quality Stroke Does the patient have a stroke diagnosis?: No VTE Prior VTE?: No VTE Risk Level:: Medical - moderate - high VTE Device Contraindication: Treatment Not Indicated VTE Drug Contraindication: N/A - Med Ordered
--- NOTE | 2024-12-10 14:54 | PHA.MEDREC ---
Addendum entered by Francisco J Torres [facility] 12/10/24 16:55: MED REC CHECKED BY [facility] Addendum entered by Amberly Chapman 12/10/24 16:41: Spoke to Patricia @4:41pm She was able to confirm all of patient medications. Updated med rec with corrections. Original Note: Pharmacy Consult ? Medication Reconciliation Pharmacy could not fully complete the med rec. Spoke with patients daughter Laurie over the phone who was able to confirm the patients medications up until our call got disconnected. The daughter was able to confirm the patients most up to date medications and confirmed the patients Alendronate 70mg tab once a week on Mondays and took it this past Sunday. She also confirmed her moms Eliquis 2.5mg tab twice a day. The daughter confirmed her moms Farixga 10mg tab and states she thinks it has been giving her problems since starting it and stats that is why she is here today. The daughter confirmed her moms Furosemide 40mg tab once a day and confirmed her Dr also prescribes her a Furosemide 20mg tab incase the patient runs out of 40mg tabs. We will update and confirm the med rec if the patients daughter calls back.
[2024-12-10] MEDS: 0.9 % Sodium Chloride Flush 3 ML SYRINGE IVFLUSH ×2 (15:12→21:09)
--- NOTE | 2024-12-10 16:01 | PC.NURSE ---
Pt provided with hospital bed.
[2024-12-10] MEDS: Apixaban 2.5 MG TABLET PO (21:08)
[2024-12-10] MEDS: Memantine HCl 10 MG TABLET PO (21:08)
[2024-12-10] MEDS: Pravastatin Sodium 40 MG TABLET PO (21:08)
[2024-12-10] MEDS: guaiFENesin LA 600 MG TAB.ER.12H 400 MG PO (21:09)
[2024-12-11] VITALS (7 sets, daily range): BP systolic 127–160; BP diastolic 52–72; PULSE 53–66; RESP 14–20; TEMP 36–36.4; O2SAT 91–96
--- NOTE | 2024-12-11 | EEG_ITS ---
This is a 16-channel EEG with an EKG lead. The patient is reported awake during the tracing. Background EEG rhythm is medium amplitude mixed theta beta with no obvious asymmetry or paroxysmal tendency. Photic stimulation does not produce any significant abnormality. Hyperventilation is not performed. Cardiac lead does not reveal any significant abnormality. No sharp wave spikes or paroxysmal tendency noted. IMPRESSION: Mild slowing with no evidence of seizure disorder. MD KETURAH Darby/LINDY / [id number]
[2024-12-11 06:37] LABS: Anion Gap 11 (12-20); Blood Urea Nitrogen 33 mg/dL (9-16); Calcium 8.8 mg/dL (8.4-10.2); Carbon Dioxide 29 mmol/L (22-29); Chloride 104 mmol/L (96-108); Creatinine Clr Calc Pharmacy 34.7; Estimated Glomerular Filt Rate 35; Glucose Random 100 mg/dL (60-115); Potassium 4.3 mmol/L (3.3-5.1); Sodium 140 mmol/L (135-145)
[2024-12-11] MEDS: Fluticasone Propionate Nasal 16 GM SPRAY 1 SPRAY NOSTRIL-B (07:54)
[2024-12-11] MEDS: Metoprolol Succinate ER 100 MG TAB.ER.24H PO (07:55)
[2024-12-11] MEDS: Cyanocobalamin (Vitamin B-12) 1,000 MCG TABLET 2000 MCG PO (07:55)
[2024-12-11] MEDS: Amiodarone HCL 200 MG TABLET PO (07:55)
[2024-12-11] MEDS: Acetaminophen 325 MG TABLET 650 MG PO (07:56)
[2024-12-11] MEDS: Empagliflozin 10 MG TABLET PO (07:57)
[2024-12-11] MEDS: Calcium + Vitamin D 250 MG TABLET 500 MG PO (07:57)
[2024-12-11] MEDS: Ascorbic Acid 250 MG TABLET PO (07:57)
[2024-12-11] MEDS: Ferrous Sulfate 324 MG TABLET.DR PO (07:57)
[2024-12-11] MEDS: 0.9 % Sodium Chloride Flush 3 ML SYRINGE IVFLUSH ×2 (07:57→16:26)
[2024-12-11] MEDS: Furosemide 40 MG TABLET PO (07:57)
[2024-12-11] MEDS: Isosorbide Mononitrate 30 MG TAB.ER.24H PO (07:57)
[2024-12-11] MEDS: FLUoxetine HCl 20 MG CAPSULE PO (07:57)
[2024-12-11] MEDS: Memantine HCl 10 MG TABLET PO ×2 (07:57→20:22)
[2024-12-11] MEDS: Apixaban 2.5 MG TABLET PO ×2 (07:57→20:22)
[2024-12-11] MEDS: Multivitamin TABLET 1 TAB PO (07:57)
[2024-12-11] MEDS: Fluticasone/Vilanterol 200/25 BLST.W.DEV 1 PUFF INHALE (08:12)
--- NOTE | 2024-12-11 08:49 | MHC.CM.PN ---
Patient is documented to have baseline Dementia and is here with increased confusion and lethargy; CM spoke with Daughter/HCP/CHILDCARE ADMINISTRATOR/Laurie @ [phone] and addressed TERRY with her (original was left at bedside, with Patient, at Laurie's request and a copy has been placed on the chart). Patient lives in a house with Laurie, Son-in-Law & Grandson and she uses a cane indoors and a walker & transport chair outdoors and for longer distances.Patient is connected with [employer] for home O2 but Laurie has purchased private O2 for her Mother. Laurie is a Nurse @ [employer] and she will transport to home at time of dc.
--- NOTE | 2024-12-11 11:32 | P.PNIM_ITS ---
Subjective Subjective Date of Service: 12/11/24 Interval History: Seen and examined this morning Follow-up for encephalopathy, possible partial seizure activity Patient is awake, alert and oriented x3. Has no specific complaints at this time Review of Systems Review of Systems: Yes all other systems are reviewed and are negative Constitutional Constitutional: Denies chills and Denies fever(s) Cardiovascular Cardiovascular: Denies chest pain, Denies palpitations and Denies dyspnea Respiratory Respiratory: Denies cough and Denies dyspnea Gastrointestinal Gastrointestinal: Denies abdominal pain, Denies nausea and Denies vomiting Endocrine Endocrine: Denies palpitations Physical Exam 2 Vital Signs: Vital Signs: Last Vital Signs Temp 97.6 F 12/11/24 08:00 Pulse 66 12/11/24 08:13 Resp 16 12/11/24 08:13 BP 136/52 L 12/11/24 08:00 Pulse Ox 95 12/11/24 08:00 O2 Del Method Nasal Cannula 12/11/24 08:00 O2 Flow Rate 1 12/11/24 08:00 Oxygen Flow Rate 2 12/10/24 08:51 BMI result Body Mass Index 32.6 Const: General: cooperative, comfortable, no acute distress, alert and awake Nutritional Appearance: overweight Orientation/consciousness: patient oriented x3 Resp: Effort & Inspection: normal respiratory effort, able to speak in complete sentences, no respiratory distress and no use of accessory muscles Cardio: Rate: regular rate GI: Inspection: No distended Palpation (GI): Soft to palpation Neuro: General: patient oriented x3, moves all extremities and CN's II-XI intact bilaterally Extrem: General: Yes no pedal edema Objective Data Active Medications Acetaminophen (Acetaminophen 325 Mg Tablet) 650 mg PO Q6H PRN PRN Reason: Pain, Mild 1-3,fever,headache Last Admin: 12/11/24 07:56 Dose: 650 mg Documented By: LATA Albuterol Sulfate (Albuterol Sulfate 90 Mcg 8 Gm Inhaler) 2 puff INHALE Q4H PRN PRN Reason: for wheezing Albuterol/Ipratropium (Albuterol/Iprat 2.5/0.5mg 3 Ml Ampul.Neb) 3 ml INHALE Q4H PRN PRN Reason: Wheezing Albuterol/Ipratropium (Albuterol/Iprat 2.5/0.5mg 3 Ml Ampul.Neb) 3 ml INHALE Q4H PRN PRN Reason: shortness of breath or wheezing Amiodarone HCl (Amiodarone Hcl 200 Mg Tablet) 200 mg PO DAILY [facility] Last Admin: 12/11/24 07:55 Dose: 200 mg Documented By: BIENVENIDOING Apixaban (Apixaban 2.5 Mg Tablet) 2.5 mg PO BID [facility] Last Admin: 12/11/24 07:57 Dose: 2.5 mg Documented By: LATA Ascorbic Acid (Ascorbic Acid 250 Mg Tablet) 250 mg PO DAILY [facility] Last Admin: 12/11/24 07:57 Dose: 250 mg Documented By: BIENVENIDOING Calcium Carbonate (Calcium Carbonate 750 Mg Tab.Chew) 750 mg PO Q4H PRN PRN Reason: Heartburn Calcium Carbonate/Cholecalciferol (Calcium + Vitamin D 250 Mg Tablet) 500 mg PO DAILY [facility] Last Admin: 12/11/24 07:57 Dose: 500 mg Documented By: LATA Cyanocobalamin (Cyanocobalamin (Vitamin B-12) 1,000 Mcg Tablet) 2,000 mcg PO DAILY [facility] Last Admin: 12/11/24 07:55 Dose: 2,000 mcg Documented By: LATA Empagliflozin (Empagliflozin 10 Mg Tablet) 10 mg PO DAILY [facility] Last Admin: 12/11/24 07:57 Dose: 10 mg Documented By: LATA Ferrous Sulfate (Ferrous Sulfate 324 Mg Tablet.Dr) 324 mg PO DAILY [facility] Last Admin: 12/11/24 07:57 Dose: 324 mg Documented By: LATA Fluoxetine HCl (Fluoxetine Hcl 20 Mg Capsule) 20 mg PO DAILY [facility] Last Admin: 12/11/24 07:57 Dose: 20 mg Documented By: LATA Fluticasone Propionate (Fluticasone Propionate Nasal 16 Gm [place]) 1 spray NOSTRIL-B BID [facility] Last Admin: 12/11/24 07:54 Dose: 1 spray Documented By: LATA Fluticasone/Vilanterol (Fluticasone/Vilanterol 200/25 Blst.W.Dev) 1 puff INHALE RDAILY [facility] Last Admin: 12/11/24 08:12 Dose: 1 puff Documented By: JUAN Furosemide (Furosemide 20 Mg Tablet) 20 mg PO DAILY PRN; Protocol PRN Reason: edima Furosemide (Furosemide 40 Mg Tablet) 40 mg PO DAILY [facility]; Protocol Last Admin: 12/11/24 07:57 Dose: 40 mg Documented By: LATA Isosorbide Mononitrate (Isosorbide Mononitrate 30 Mg Tab.Er.24h) 30 mg PO DAILY [facility]; Protocol Last Admin: 12/11/24 07:57 Dose: 30 mg Documented By: LATA Magnesium Hydroxide (Milk Of Magnesia 30 Ml Oral.Susp) 30 ml PO DAILY PRN PRN Reason: Constipation Melatonin (Melatonin 3 Mg Tablet) 6 mg PO BEDTIME PRN PRN Reason: Insomnia Memantine (Memantine Hcl 10 Mg Tablet) 10 mg PO BID [facility] Last Admin: 12/11/24 07:57 Dose: 10 mg Documented By: LATA Metoprolol Succinate (Metoprolol Succinate Er 100 Mg Tab.Er.24h) 100 mg PO DAILY [facility]; Protocol Last Admin: 12/11/24 07:55 Dose: 100 mg Documented By: LATA Multivitamins/Vitamin C (Multivitamin Tablet) 1 tab PO DAILY [facility] Last Admin: 12/11/24 07:57 Dose: 1 tab Documented By: LATA Nitroglycerin (Nitroglycerin 0.4 Mg Tab.Subl) 0.4 mg SUBLINGUAL Q5M PRN PRN Reason: chest pain Ondansetron HCl (Ondansetron Hcl 4 Mg/2 Ml Vial) 4 mg IVPUSH Q8H PRN PRN Reason: Nausea and Vomiting Pravastatin Sodium (Pravastatin Sodium 40 Mg Tablet) 40 mg PO BEDTIME [facility] Last Admin: 12/10/24 21:05 Dose: Not Given Documented By: LAMINE-DREW Non-Admin Reason: Previously Administered Sodium Chloride (0.9 % Sodium Chloride Flush 3 Ml Syringe) 3 ml IVFLUSH QSHIFT [facility] Last Admin: 12/11/24 07:57 Dose: 3 ml Documented By: LATA Labs 12/10/24 11:05 12/11/24 05:38 Labs: Laboratory Results - last 24 hr 12/10/24 12/10/24 12/11/24 11:05 11:22 05:38 ESR 79 H Hold Purple Top SEE NOTE Anion Gap 11 L Estim Creat Clear Calc 34.7 Estimated GFR 35 Random Glucose 100 Calcium 8.8 D TSH 0.81 Urine Color Yellow Urine Appearance Clear Urine pH 7.0 Ur Specific [place] 1.020 Urine Protein 30 (1+) H Urine Glucose (UA) 500 H Urine Ketones Negative Urine Blood Negative Urine Nitrite Negative Ur Leukocyte Esterase Negative Urine RBC 0-2 Urine WBC 0-5 Ur Squamous Epith Cells 0-2 Urine Bacteria None Seen Hyaline Casts 0-2 Urine Opiates Screen Not Detected Ur Buprenorphine Scrn Not Detected Ur Oxycodone Screen Not Detected Urine Methadone Screen Not Detected Urine Fentanyl Screen Not Detected Ur Barbiturates Screen Not Detected Ur Phencyclidine Scrn Not Detected Ur Amphetamines Screen Not Detected U Benzodiazepines Scrn Not Detected Urine Cocaine Screen Not Detected U Marijuana (THC) Screen Not Detected Assessment and Plan (1) Encephalopathy acute: Status: Acute Plan This is an 79-year-old female with a PMH significant for?paroxysmal AFib on Eliquis s/p ablation x2, cardiomyopathy, CAD, HFrEF (31%), COPD on 2 L home O2, and CKD 3 who presents to the ED for evaluation of increased confusion and lethargy times 4-5 days Acute encephalopathy, workup in progress mild dementia as baseline, increasing confusion, incontinence, hand clenching and tremors x5 days per family CT of head and abd/pelvis negative for acute abnormalities; UA negative; no leukocytosis Family notes started Farxiga 10 days ago, increased home stressors hold Farxiga EEG, neuro consult pending Alert and oriented x3 today Chronic respiratory failure Due to COPD/restrictive lung disease Continue supplemental oxygen 2 L at baseline Increased creatinine Back to baseline HFrEF Not in acute exacerbation Continue metoprolol, Lasix Paroxysmal AFib S/p ablation x2 Continue metoprolol, amiodarone, and Eliquis ( on 2.5 bid dosing ? due to fluctuating renal function. Creatinine has been slowly if 5, can consider increasing to full dose as outpatient) CAD/HLD Continue statin, isosorbide mononitrate, and nitro p.r.n. Full Code DVT Prophylaxis:Eliquis Quality Stroke Does the patient have a stroke diagnosis?: No VTE Prior VTE?: No VTE Risk Level:: Medical - moderate - high VTE Device Contraindication: Treatment Not Indicated VTE Drug Contraindication: N/A - Med Ordered
--- NOTE | 2024-12-11 16:25 | PM.NEUROCN ---
History of Present Illness Data of Consult Service Date: 12/11/24 Primary Care Provider: Brii West NP HPI Reason for consult: Encephalopathy 79-year-old female with a PMH significant for?paroxysmal AFib on Eliquis s/p ablation x2, cardiomyopathy, CAD, HFrEF (31%), COPD on 2 L home O2, and CKD 3 who presents to the ED for evaluation of increased confusion and lethargy times 4-5 days. She was noted to have confusion and twitching with signs of dementia and this consultation was requested. She was not sure why she was brought to hospital stating that her daughter did this. Review of Systems Review of Systems: She denied any recent cold or flu-like illness with said that maybe the something was wrong with a urination. [facility] Past Medical History Medical History History of cardioversion (~03/2024) CKD (chronic kidney disease) Hypoxemia Dyspnea on exertion Cardiomyopathy Obesity (BMI 30-39.9) Cataract Wears dentures Use of cane as ambulatory aid Arthritis Low back pain High cholesterol HTN (hypertension) Environmental and seasonal allergies Restrictive lung disease Essential hypertension Atherosclerotic cardiovascular disease COPD (chronic obstructive pulmonary disease) Family History Family History Father Family history of cancer Mother Colon cancer Alzheimer disease Surgical History Surgical History History of esophagogastroduodenoscopy (EGD) Hx of colonoscopy History of tubal ligation History of ankle surgery History of lumpectomy of left breast Social History Social History Household Members: Family Household Members Other:: SON LIVES IN NEXT APARTMENT Housing: House Are you a primary pet caretaker to a significant other at home: Yes (grandson age 13, son and daughter supportive) Do you presently have visiting nurse or other home services: Yes Alcohol intake: current Alcohol intake frequency: holidays/special occasions only Patient Tobacco Use Status: Former Tobacco user Tobacco use type: Cigarette Smoked in Last 30 Days: No Use of substances other than those prescribed or required for medical reasons: No Currently Displaying Signs/Symptoms of Drug Intoxication Withdrawal: No Have you been hit, kicked, punched, or otherwise hurt by someone within the past year? If so, by whom?: No Do you feel safe in your current relationship?: No Current Relationship Is there a partner from a previous relationship who is making you feel unsafe now?: No Are you made to feel afraid or neglected: No Advance Directives: Yes Advance Directives on File: Yes Advance Directives Date on File: 10/17/23 Do you have a plan to hurt others: No Plan Nutrition Risks: No Nutritional Risk Patient : No Poor oral hygiene: No service: No Meds Allergies Allergy/AdvReac Type Severity Reaction Status Date / Time hydrochlorothiazide Allergy Intermediate FELT Verified 12/10/24 08:56 [From ZESTORETIC] FAINT, syncope lisinopril [LISINOPRIL] Allergy Intermediate Cough Verified 12/10/24 08:56 Active Medications: Current Medications Acetaminophen (Acetaminophen 325 Mg Tablet) 650 mg PO Q6H PRN PRN Reason: Pain, Mild 1-3,fever,headache Last Admin: 12/11/24 07:56 Dose: 650 mg Albuterol Sulfate (Albuterol Sulfate 90 Mcg 8 Gm Inhaler) 2 puff INHALE Q4H PRN PRN Reason: for wheezing Albuterol/Ipratropium (Albuterol/Iprat 2.5/0.5mg 3 Ml Ampul.Neb) 3 ml INHALE Q4H PRN PRN Reason: Wheezing Albuterol/Ipratropium (Albuterol/Iprat 2.5/0.5mg 3 Ml Ampul.Neb) 3 ml INHALE Q4H PRN PRN Reason: shortness of breath or wheezing Amiodarone HCl (Amiodarone Hcl 200 Mg Tablet) 200 mg PO DAILY [facility] Last Admin: 12/11/24 07:55 Dose: 200 mg Apixaban (Apixaban 2.5 Mg Tablet) 2.5 mg PO BID [facility] Last Admin: 12/11/24 07:57 Dose: 2.5 mg Ascorbic Acid (Ascorbic Acid 250 Mg Tablet) 250 mg PO DAILY [facility] Last Admin: 12/11/24 07:57 Dose: 250 mg Calcium Carbonate (Calcium Carbonate 750 Mg Tab.Chew) 750 mg PO Q4H PRN PRN Reason: Heartburn Calcium Carbonate/Cholecalciferol (Calcium + Vitamin D 250 Mg Tablet) 500 mg PO DAILY [facility] Last Admin: 12/11/24 07:57 Dose: 500 mg Cyanocobalamin (Cyanocobalamin (Vitamin B-12) 1,000 Mcg Tablet) 2,000 mcg PO DAILY [facility] Last Admin: 12/11/24 07:55 Dose: 2,000 mcg Empagliflozin (Empagliflozin 10 Mg Tablet) 10 mg PO DAILY [facility] Last Admin: 12/11/24 07:57 Dose: 10 mg Ferrous Sulfate (Ferrous Sulfate 324 Mg Tablet.Dr) 324 mg PO DAILY [facility] Last Admin: 12/11/24 07:57 Dose: 324 mg Fluoxetine HCl (Fluoxetine Hcl 20 Mg Capsule) 20 mg PO DAILY [facility] Last Admin: 12/11/24 07:57 Dose: 20 mg Fluticasone Propionate (Fluticasone Propionate Nasal 16 Gm [place]) 1 spray NOSTRIL-B BID [facility] Last Admin: 12/11/24 07:54 Dose: 1 spray Fluticasone/Vilanterol (Fluticasone/Vilanterol 200/25 Blst.W.Dev) 1 puff INHALE RDAILY [facility] Last Admin: 12/11/24 08:12 Dose: 1 puff Furosemide (Furosemide 20 Mg Tablet) 20 mg PO DAILY PRN; Protocol PRN Reason: edima Furosemide (Furosemide 40 Mg Tablet) 40 mg PO DAILY [facility]; Protocol Last Admin: 12/11/24 07:57 Dose: 40 mg Isosorbide Mononitrate (Isosorbide Mononitrate 30 Mg Tab.Er.24h) 30 mg PO DAILY [facility]; Protocol Last Admin: 12/11/24 07:57 Dose: 30 mg Magnesium Hydroxide (Milk Of Magnesia 30 Ml Oral.Susp) 30 ml PO DAILY PRN PRN Reason: Constipation Melatonin (Melatonin 3 Mg Tablet) 6 mg PO BEDTIME PRN PRN Reason: Insomnia Memantine (Memantine Hcl 10 Mg Tablet) 10 mg PO BID [facility] Last Admin: 12/11/24 07:57 Dose: 10 mg Metoprolol Succinate (Metoprolol Succinate Er 100 Mg Tab.Er.24h) 100 mg PO DAILY [facility]; Protocol Last Admin: 12/11/24 07:55 Dose: 100 mg Multivitamins/Vitamin C (Multivitamin Tablet) 1 tab PO DAILY [facility] Last Admin: 12/11/24 07:57 Dose: 1 tab Nitroglycerin (Nitroglycerin 0.4 Mg Tab.Subl) 0.4 mg SUBLINGUAL Q5M PRN PRN Reason: chest pain Ondansetron HCl (Ondansetron Hcl 4 Mg/2 Ml Vial) 4 mg IVPUSH Q8H PRN PRN Reason: Nausea and Vomiting Pravastatin Sodium (Pravastatin Sodium 40 Mg Tablet) 40 mg PO BEDTIME [facility] Last Admin: 12/10/24 21:05 Dose: Not Given Sodium Chloride (0.9 % Sodium Chloride Flush 3 Ml Syringe) 3 ml IVFLUSH QSHIFT [facility] Last Admin: 12/11/24 07:57 Dose: 3 ml Home Medications ?Medication ?Instructions ?Recorded ?Confirmed ?Last Taken ?Type memantine 10 mg tablet 10 mg PO BID 11/25/20 12/10/24 12/09/24 History calcium 600 mg (as 1 tab PO DAILY 10/12/23 12/10/24 12/28/23 History carbonate)-vitamin D3 5 mcg (200 unit) tablet fluoxetine 20 mg capsule 20 mg PO DAILY 10/12/23 12/10/24 12/09/24 History pravastatin 40 mg tablet 40 mg PO BEDTIME 11/01/23 12/10/24 12/09/24 History multivit-iron 18 mg-folic acid 400 1 tab PO DAILY 12/28/23 12/10/24 12/09/24 History mcg-calcium 500 mg-minerals tablet (Women's One Daily) ferrous sulfate 325 mg (65 mg 325 mg PO DAILY 01/15/24 12/10/24 12/09/24 History iron) tablet,delayed release budesonide-formoterol HFA 160 2 puff inhalation ONCE 01/29/24 12/10/24 12/09/24 History mcg-4.5 mcg/actuation aerosol inhaler (Symbicort) guaifenesin 400 mg tablet 400 mg PO BID 04/28/24 12/10/24 12/09/24 History alendronate 70 mg tablet 70 mg PO MO 06/09/24 12/10/24 12/08/24 History mecobalamin (vitamin B12) 1,000 2,000 mcg PO DAILY 06/09/24 12/10/24 12/09/24 History mcg chewable tablet ascorbic acid (vitamin C) 250 mg 250 mg PO DAILY 12/10/24 12/10/24 Unknown History tablet (Vitamin C) fluticasone propionate 50 1 spray intranasal BID 12/10/24 12/10/24 12/09/24 History mcg/actuation nasal spray,suspension furosemide 20 mg tablet 20 mg PO DAILY PRN edima 12/10/24 12/10/24 Unknown History furosemide 40 mg tablet 40 mg PO DAILY 12/10/24 12/10/24 12/09/24 History Physical Exam Vital Signs: Vital Signs: Last Vital Signs Temp 96.8 F 12/11/24 15:23 Pulse 55 12/11/24 15:23 Resp 16 12/11/24 15:23 BP 127/55 L 12/11/24 15:23 Pulse Ox 94 12/11/24 15:23 O2 Del Method Room Air 12/11/24 15:23 O2 Flow Rate 1 12/11/24 08:00 Oxygen Flow Rate 2 12/10/24 08:51 BMI result Body Mass Index 32.6 Neuro: Other: She was alert and awake with normal spontaneity of speech fluency comprehension and somewhat vague affect. She was following commands. Face was symmetrical. Visual arevalo are full. There was no obvious focal weakness. Deep tendon reflexes were absent. She knew where she was. Results Labs 12/10/24 11:05 12/11/24 05:38 Labs: BMP 12/11/24 05:38 Sodium 140 Potassium 4.3 Chloride 104 Carbon Dioxide 29 BUN 33 H Creatinine 1.45 H Calcium 8.[address] revealed significant bilateral cortical atrophy affecting frontoparietal cortex and cerebellum. Microbiology Microbiology Results: Microbiology 12/10/24 10:27 Blood - Venous Blood Culture - Preliminary No growth after 24 hours. 12/10/24 09:55 Blood - Venous Blood Culture - Preliminary No growth after 24 hours. Assessment and Plan (1) Encephalopathy acute: Status: Acute 79 years old woman with moderately severe degenerative dementia. Patient's like her can present with confusion or cognitive difficulties. Treatable causes such as infection or seizure disorder should be considered. If no infection is found, EEG is recommended. Otherwise continue memantine. Procedures Date of Service Date of Service: 12/11/24
--- NOTE | 2024-12-11 18:46 | PM.DS ---
DS: Providers Provider Date of Service: 12/11/24 Date of admission: 12/10/24 14:08 Date of discharge: 12/11/24 Primary care physician: Brii West NP Consults: 12/11/24 10:29 Consult to Neurology Routine Consulting Provider: [facility] Reason for consultation: confusion; hand clenching/twitching; h/o mild dementia Has provider been notified: No Attending physician on discharge: Josue Singletary Discharging clinician: Bree Urbina DS: Diagnosis Discharge Diagnosis (1) Encephalopathy acute: Status: Acute DS: Summary Hospital Course Hospital Course: From H&P on the day of admission Pt is an 79-year-old female with a PMH significant for?paroxysmal AFib on Eliquis s/p ablation x2, cardiomyopathy, CAD, HFrEF (31%), COPD on 2 L home O2, and CKD 3 who presents to the ED for evaluation of increased confusion and lethargy times 4-5 days. Pt is alert and oriented to self and place, not to time or situation. HPI thus obtained from daughter with whom pt lives with. Daughter notes that pt has mild dementia at baseline, though has been experiencing increased confusion since at least last Sunday. Daughter notes pt is often confused where she is, and saying peculiar things, such as thinking that the police are coming to get her. Yesterday pt had increased confusion and lethargy, was difficult to arouse. Daughter also noticed that patient's left hand was clenched, and right hand was twitching uncontrollably despite pt attempting to stop it. Pt has also been incontinent of urine duirng this time which is unlike her baseline. Daughter notes that last Sunday pt recently started Farxiga, 4 days prior to symptom onset. Daughter also notes there has been increased life stressors in the home. Pt herself complains of diffuse lower back pain, though is uncertain when this began. Denies trauma or fall. Pt otherwise has no acute medical complaints and is resting comfortably in bed. In the ED pt was hypertensive up to 170/75, vitals otherwise stable and WNL for pt. Labs were significant for creatinine 1.61 (baseline 1.44), mildly elevated AST of 36 and ALT of 34, and CRP 2.39. No leukocytosis. Stable normocytic anemia of 10.8/34.3. No significant electrolyte abnormalities. BNP 520 (reduced from prior, likely baseline). Ammonia WNL at 36. Initial troponin 3.9. Lactic acid WNL. CXR showed no acute cardiopulmonary abnormality. CT of head negative for acute fracture or intracranial hemorrhage. Does show global cerebral atrophy and small-vessel occlusive disease. CT of abdomen and pelvis negative for acute abdomen. Does show prominence of right renal collecting system without evidence of obstructing calculus. EKG demonstrated sinus bradycardia of 49 with nonspecific T-wave and ST abnormalities, similar to prior. Pt will be admitted to the hospital under observation for treatment and further evaluation of acute encephalopathy of unclear etiology Acute encephalopathy, workup in progress mild dementia as baseline. CT of head and abd/pelvis negative for acute abnormalities; UA negative; no leukocytosis. Patient had EEG which was unremarkable, patient was evaluated by Neurology, no further workup recommended at this time. Patient is alert and oriented x3 at the time of discharge. Time Attestation Discharge Coordination Time (in mins): 35 Quality: Safe Use of Opioids Does Pt have an Active Cancer Diagnosis on the Problem List?: No Quality: Stroke Does the patient have a stroke diagnosis?: No Physical Exam Vital Signs: Vital Signs: Last Vital Signs Temp 96.8 F 12/11/24 15:23 Pulse 55 12/11/24 15:23 Resp 16 12/11/24 15:23 BP 127/55 L 12/11/24 15:23 Pulse Ox 94 12/11/24 15:23 O2 Del Method Room Air 12/11/24 15:23 O2 Flow Rate 1 12/11/24 08:00 Oxygen Flow Rate 2 12/10/24 08:51 BMI result Body Mass Index 32.6 DS: Data Data Completed and Pending Completed studies during hospitalization [Text1]: Procedures Inspection of Upper Intestinal Tract, Via Natural or Artificial Opening Endoscopic (11/01/23) Mandaeism of Cardiac Rhythm, Single (10/12/23) Transfusion of Nonautologous Red Blood Cells into Peripheral Vein, Percutaneous Approach (11/01/23) Ultrasonography of Heart with Aorta, Transesophageal (10/12/23) Labs on day of discharge: Laboratory Results - last 24 hr 12/11/24 05:38 Hold Purple Top SEE NOTE Sodium 140 Potassium 4.3 Chloride 104 Carbon Dioxide 29 Anion Gap 11 L BUN 33 H Creatinine 1.45 H Estim Creat Clear Calc 34.7 Estimated GFR 35 Random Glucose 100 Calcium 8.8 D Preliminary micro results at discharge 12/10/24 10:27 Blood Culture - Preliminary Blood - Venous No growth after 24 hours. 12/10/24 09:55 Blood Culture - Preliminary Blood - Venous No growth after 24 hours. Discharge Plan Discharge Patient Disposition: Home, Self-Care Discharge Diagnosis: encephalopathy - resolved Referrals: Brii West, INSURANCE ACCOUNT SPECIALIST [Primary Care Provider] - 1 Week Discharge Medications: Continued nitroglycerin 0.4 mg tablet, sublingual 0.4 mg sublingual Q5M PRN (Reason: chest pain) Qty: 14 2RF Rx Instructions: do not exceed 3 doses per episode albuterol sulfate 90 mcg/actuation HFA aerosol inhaler 2 puff inhalation Q4-6H PRN (Reason: for wheezing) Qty: 8.5 3RF amiodarone 200 mg tablet 200 mg PO DAILY 90 Days Qty: 90 3RF ipratropium-albuterol 0.5 mg-3 mg(2.5 mg base)/3 mL solution for nebulization 3 ml inhalation Q4H PRN (Reason: shortness of breath or wheezing) Qty: 180 3RF metoprolol succinate [Toprol XL] 100 mg tablet extended release 24 hr 100 mg PO DAILY Qty: 90 1RF isosorbide mononitrate 30 mg tablet extended release 24 hr 30 mg PO DAILY Qty: 90 3RF Protocol: Hold for SBP< HOLD for SBP < : 90 Eliquis 2.5 mg tablet 2.5 mg PO BID 90 Days Qty: 180 2RF fluticasone propionate 50 mcg/actuation spray,suspension 1 spray intranasal BID furosemide 40 mg tablet 40 mg PO DAILY ascorbic acid (vitamin C) [Vitamin C] 250 mg Tablet 250 mg PO DAILY furosemide 20 mg tablet 20 mg PO DAILY PRN (Reason: edima) calcium carbonate-vitamin D3 600 mg-5 mcg (200 unit) tablet 1 tab PO DAILY fluoxetine 20 mg capsule 20 mg PO DAILY pravastatin 40 mg tablet 40 mg PO BEDTIME Women's One Daily 18 mg iron-400 mcg-500 mg Ca Tablet 1 tab PO DAILY budesonide-formoterol [Symbicort] 160-4.5 mcg/actuation HFA aerosol inhaler 2 puff INHALATION ONCE memantine 10 mg tablet 10 mg PO BID alendronate 70 mg tablet 70 mg PO MO guaifenesin 400 mg tablet 400 mg PO BID ferrous sulfate 325 mg (65 mg iron) tablet,delayed release (DR/EC) 325 mg PO DAILY mecobalamin (vitamin B12) 1,000 mcg tablet,chewable 2,000 mcg PO DAILY dapagliflozin propanediol [Farxiga] 10 mg tablet 10 mg PO DAILY Qty: 90 1RF Discharge Orders: Discharge Order (Routine); Ordered 12/11/24 Ordered By: Bree Urbina Activity on Discharge: As tolerated Stand Alone Forms: Patient Portal Discharge page Print Language: Frisian Care Plan Goals: see below Health Concerns: acute encephalopathy - resolved Plan of Treatment: EEG negative call to schedule follow up appointment with PCP Assessment: see discharge summary Discharge Date/Time: 12/11/24 20:52
[2024-12-11] MEDS: Pravastatin Sodium 40 MG TABLET PO (20:21)
--- NOTE | 2024-12-11 23:13 | PC.NURSE ---
Addendum entered by Susan Scruggs RN 12/11/24 23:16: patient with active discharge orders awaiting daughter/caregiver's arrival to transport home. Patients daughter arrived around 8PM. patient changed, IV & tele removed, night medications administered and charted. Discharge summary explained to and signed by patient. Patient safely transferred downstairs via wheelchair with personal belongings and o2 with staff. Original Note: patient with active discharge orders awaiting daughter/caregivers arrival to transport home. Patients daughter arrived at 8PM. patient changed, IV & tele removed, night medications administered and charted. Discharge summary explained to and signed by patient. Patient safely transferred downstairs via wheelchair and home o2 tubing with staff.
== END 2024-12-11 20:52 | disposition home or self-care (01) ==
LOC: HO.ED 12:11 → HO.EDOVER 14:09 → HO.IMC 16:44
PROVIDERS: Admitting Provider Student in an Organized Health Care Education/Training Program; Emergency Provider Emergency Medicine; PCP Nurse Practitioner Family; Visit Provider Physician Assistant Medical
DX: G93.40 Encephalopathy, unspecified (principal); I48.0 Paroxysmal atrial fibrillation; J44.9 Chronic obstructive pulmonary disease, unspecified; R05.9 Cough, unspecified; R53.1 Weakness; R00.1 Bradycardia, unspecified; F03.C0 Unspecified dementia, severe, without behavioral disturbance, psychotic disturbance, mood disturbance, and anxiety; R41.82 Altered mental status, unspecified; I12.9 Hypertensive chronic kidney disease with stage 1 through stage 4 chronic kidney disease, or unspecified chronic kidney disease; N18.9 Chronic kidney disease, unspecified; E78.00 Pure hypercholesterolemia, unspecified; I25.10 Atherosclerotic heart disease of native coronary artery without angina pectoris; R10.9 Unspecified abdominal pain; I42.9 Cardiomyopathy, unspecified; Z20.828 Contact with and (suspected) exposure to other viral communicable diseases; Z79.01 Long term (current) use of anticoagulants; Z79.899 Other long term (current) drug therapy; Z87.891 Personal history of nicotine dependence; Z99.81 Dependence on supplemental oxygen
CPT/HCPCS: 0241U; 36415; 70450; 71045; 74176; 80048; 80076; 80307; 81001; 82140; 82550; 82803; 83605; 83690; 83735; 83880; 84145; 84443; 84484; 85025; 85652; 86140; 87040; 93005; 95816; 99222; 99285

== ENCOUNTER → 2024-12-10 08:58 | Outpatient (BNV) | payer OTHER, SELFPAY | PROVIDERS: Emergency Provider Emergency Medicine; PCP Nurse Practitioner Family; Visit Provider Radiology Diagnostic Radiology | DX: R10.9 Unspecified abdominal pain (principal); R41.82 Altered mental status, unspecified; G31.9 Degenerative disease of nervous system, unspecified; R05.9 Cough, unspecified; R53.1 Weakness | CPT/HCPCS: 70450; 71045; 74176 ==

== ENCOUNTER → 2024-12-10 08:58 | Outpatient (BNV) | payer OTHER, SELFPAY | PROVIDERS: Admitting Provider Student in an Organized Health Care Education/Training Program; Emergency Provider Emergency Medicine; PCP Nurse Practitioner Family; Visit Provider Internal Medicine Cardiovascular Disease | DX: R00.1 Bradycardia, unspecified (principal); R94.31 Abnormal electrocardiogram [ECG] [EKG]; R53.1 Weakness | CPT/HCPCS: 93010 ==

== ENCOUNTER → 2024-12-10 14:08 | Outpatient (BNV) | payer OTHER, SELFPAY | PROVIDERS: Admitting Provider Student in an Organized Health Care Education/Training Program; Emergency Provider Emergency Medicine; PCP Nurse Practitioner Family; Visit Provider Physician Assistant Medical | DX: G93.40 Encephalopathy, unspecified (principal) | CPT/HCPCS: 99222 ==

== ENCOUNTER → 2024-12-10 14:08 | Outpatient (BNV) | payer OTHER, SELFPAY | PROVIDERS: Admitting Provider Student in an Organized Health Care Education/Training Program; Emergency Provider Emergency Medicine; PCP Nurse Practitioner Family; Visit Provider Psychiatry & Neurology Neurology | DX: G93.40 Encephalopathy, unspecified (principal) | CPT/HCPCS: 99222 ==

== ENCOUNTER → 2025-02-02 15:06 | Outpatient (REF) | payer OTHER, SELFPAY ==
--- OUTSIDE RECORDS SUMMARY | 2025-02-02 15:08 | XMS_ITS | Encounter Summary ---
Author Organization [employer] Address [address] [facility] [address] [place] [address] Care Team Providers Care Rescue Worker Name Role Phone Unavailable Primary Care Provider Unavailabl e Reason for Visit * Reason Comments Med Refill Encounter Details Date Type Department Care Team (Late st Contact Info) Description 02/28/2024 Refill [facility] [address] [place] [address] Alessandra Mcnair MD Social History Tobacco Use [...]
--- OUTSIDE RECORDS SUMMARY | 2025-02-02 15:08 | XMS_ITS | Clinical Summary ---
Author Organization [employer] Address [address] [facility] [address] [place] [address] Care Team Providers Care Bleach Mixer Name Role Phone Unavailable Primary Care Provider [...]
--- NOTE | 2025-02-02 15:11 | CA_ITS ---
Transthoracic Echocardiogram Patient (Last, First, Middle): Marge Mcdowell H Gender: Female Date of : 1945 Age: 80 Procedure Date: 02/02/2025 Procedure Type: Transthoracic Echocardiogram Location: OP Height: 167.64 cm Weight: 86.18 kg BSA: 1.96 m2 Heart Rate: 54 bpm BP: 124 / 60 mmHg Field Sales Specialist: SB Referring MD: Gary Mathew MD Flat Surfacer: Sebastian Oakes MD Symptoms: I25.10 - Atherosclerotic heart disease of mohegan coronary artery without... Study Quality: Adequate w contrast ECG Rhythm: Bradycardia Conclusions: - 1. Normal LV ejection fraction 55-60% with underlying regional wall motion abnormality consistent with coronary artery disease with impaired relaxation filling 2. Calcific aortic valve changes noted with iejr-[id number]-ngqnccfe aortic stenosis 3. Mild mitral regurgitation due to restricted leaflet mobility 4. Normal measured RV systolic pressure 5. No gross pericardial effusion Findings Procedure Information Contrast agent, definity, is being given per protocol without apparent complications. Left Ventricle Normal left ventricular size, thickness, and systolic function. The visually estimated ejection fraction is between 55-60%. Spectral Doppler is indicative of an impaired relaxation filling pattern. E/E prime ratio is between 8 and 15 consistent with indeterminate filling pressures. Wall Motion Rest Echo Findings The basal inferolateral segment is hypokinetic. The basal inferior, mid inferior, and basal inferoseptal segments are akinetic. All other scored wall segments showed normal motion. Right Ventricle Normal right ventricular cavity size and systolic function. Atria The left atrium is mildly dilated. Interatrial shunt cannot be excluded. The right atrium is normal in size. Aortic Valve There is moderate calcification of the aortic valve. There is mild to moderate aortic valve stenosis. The peak aortic gradient is 21 mmHg.The mean gradient is 12 mmHg. There is no aortic valve regurgitation. Mitral Valve There is mild anterior and posterior mitral leaflet thickening. The posterior mitral leaflet has restricted mobility. There is mild mitral valve regurgitation. There is no mitral valve stenosis. Pulmonic Valve The pulmonic valve was not well visualized. Tricuspid Valve Likely normal tricuspid valve structure and function. There is mild tricuspid valve regurgitation. The right ventricular systolic pressure is normal. The right ventricular systolic pressure is 34 mmHg. Normal right atrial pressure. There is no evidence of pulmonary hypertension. Great Vessels The aorta was not well visualized. The pulmonary artery was not well visualized. There is no dilatation of the ascending aorta measuring 2.70 cm. Venous The inferior vena cava is normal in size and collapses greater than 50% with inspiration. Pericardium/Pleural There is no evidence of pericardial effusion. Prior Study Comparison Changes noted compared to prior study dated: 11/27/2023. LV ejection fraction has normalized Measurements 2D Linear Measurements IVSd: 1.08 0.6-0.9/0.6-1.0 cm LVIDd: 5.18 3.9-5.3/4.2-5.9 cm LVIDd Index: 2.64 2.4-3.2/2.2-3.1 cm/m2 LVIDs: 3.52 2.0-3.6 cm LVPWd: 1.02 0.7-1.1 cm Ao Root: 3.00 2.1-3.5 cm LA Diam: 4.80 2.7-3.8/3.0-4.0 cm LAIDs Index: 2.45 1.5-2.3 cm/m2 LV Mass: 256.71 67-162/88-224 g LV Mass Index: 130.97 43-95/49-115 g/m2 LVOT Diam: 2.10 3.0+(-)1.3 cm 2D Systolic Function EF 4C: 51.20 >55% EF 2C: 65.60 >55% EF BiP: 59.50 >55% Mitral Valve MV Pk E: 0.88 MV PK A: 1.08 MV Decel Time: 449.00 E/A: 0.80 E'Lateral: 5.75 E'Medial: 3.12 E/E' Med: 28.00 E/E' Lat: 15.20 PHT: 131.00 MVA PHT: 1.68 Decel Spencer: 1.95 Aortic Valve AoV Pk Vinny: 2.31 AoV Mn Vinny: 1.60 AoV VTI: 0.57 AoV Pk Grad: 21.00 Aov Mn Grad: 12.00 ROBERT Cont.VTI: 1.05 LVOT LVOT Pk Vinny: 0.67 LVOT Mn Vinny: 0.45 LVOT VTI: 0.17 LVOT Pk Grad: 2.00 LVOT Mn Grad: 1.00 LVOT Diam: 2.10 LVOT Area: 3.46 Diastolic Function MV Pk E: 0.88 MV Pk A: 1.08 E/A: 0.80 E'Medial: 3.12 E/E' Med: 28.00 E' Laterial: 5.75 E/E' Lat: 15.20 Right Ventricle TAPSE (mm): 20.40 TVS' Vinny: 9.60 Tricuspid Valve TR Pk Vinny: 2.78 TR Pk Grad: 31.00 RA Press: 3.00 RVSP: 34.00 Great Vessels Aorta Ao Root-2D: 3.00 2.0-3.7 cm Ao Asc: 2.70 2.1-3.4 cm Pulmonary Veins Pulm Vein S/D 1.00 Pulmonary Valve PV Pk Vinny: 0.89 Peak PV Grad: 3.00 Updated in Other Vendor System with Status of Final Sebastian Oakes MD electronically signed on 02/03/2025 10:48:52 AM with status of Final
== END ==
LOC: HO.CARD 15:06
PROVIDERS: PCP Nurse Practitioner Family; Visit Provider Internal Medicine
DX: I25.10 Atherosclerotic heart disease of native coronary artery without angina pectoris (principal)
CPT/HCPCS: 93306; Q9957

== ENCOUNTER → 2025-02-02 15:11 | Outpatient (BNV) | payer OTHER, SELFPAY | PROVIDERS: PCP Nurse Practitioner Family; Visit Provider Internal Medicine Cardiovascular Disease | DX: I25.10 Atherosclerotic heart disease of native coronary artery without angina pectoris (principal); I35.0 Nonrheumatic aortic (valve) stenosis; I35.8 Other nonrheumatic aortic valve disorders; I34.0 Nonrheumatic mitral (valve) insufficiency | CPT/HCPCS: 93306 ==

== ENCOUNTER 2025-02-11 14:08 | Outpatient (AMB) | payer OTHER, SELFPAY ==
[2025-02-11 14:22] VITALS: BP 130/70; PULSE 55; O2SAT 91
--- NOTE | 2025-02-11 14:22 | A.OFFVIS_ITS ---
Vital Signs 02/11/25 14:22 Height 5 ft 6 in BP 130/70 Blood Pressure Location Lt brachial Position Sitting Pulse 55 Pulse Source Pulse Oximeter Pulse Oximetry (%) 91 L Oxygen Delivery Method Room Air Intake Visit Reasons: COPD Intake Note: pt is here for follow up and stated she is feeling well today. pt needs refills symbicort and albuterol hfa Quality Engineer Medical Device Required: No Allergies hydrochlorothiazide [From ZESTORETIC] Allergy (Intermediate, Verified 02/11/25 14:25) FELT FAINT, syncope lisinopril [LISINOPRIL] Allergy (Intermediate, Verified 02/11/25 14:25) Cough Medication List - Last Reconciled 02/11/25 by Mini Martinez MD albuterol sulfate 90 mcg/actuation 2 puffs inhalation Q4-6H PRN alendronate 70 mg PO MO amiodarone 200 mg PO DAILY 90 days apixaban (Eliquis) 2.5 mg PO BID 90 days ascorbic acid (vitamin C) (Vitamin C) 250 mg PO DAILY budesonide-formoterol 160-4.5 mcg/actuation (Symbicort) 2 puffs inhalation ONCE calcium carbonate-vitamin D3 600 mg-5 mcg (200 unit) 1 tab PO DAILY dapagliflozin propanediol (Farxiga) 10 mg PO DAILY ferrous sulfate 325 mg PO DAILY fluoxetine 20 mg PO DAILY fluticasone propionate 50 mcg/actuation 1 spray intranasal BID furosemide 40 mg PO DAILY furosemide 20 mg PO DAILY PRN guaifenesin 400 mg PO BID ipratropium-albuterol 0.5 mg-3 mg(2.5 mg base)/3 mL 3 mL inhalation Q4H PRN isosorbide mononitrate ER 30 mg See Protocol PO DAILY mecobalamin (vitamin B12) 2,000 mcg PO DAILY memantine 10 mg PO BID metoprolol succinate ER (Toprol XL) 100 mg PO DAILY jvukvyje-qfex-DB-calcium-mins 18 mg iron-400 mcg-500 mg Ca (Women's One Daily) 1 tab PO DAILY nitroglycerin 0.4 mg sublingual Q5M PRN pravastatin 40 mg PO BEDTIME Do you need a note to return to daycare/school/sports/work: No HPI HPI COPD: Details: 80 YEARS OLD VERY PLEASANT FEMALE, COMES FOR FOLLOW-UP AFTER 6 MONTHS. SHE IS BROUGHT INTO THE OFFICE IN WHEELCHAIR BY HER DAUGHTER, WHO IS RN . BREATHING KYLE DOING VERY WELL WITH HER CURRENT MEDICAL REGIMEN. USES SYMBICORT 160-4.52 PUFFS B.I.D.. ALBUTEROL HFA 2 PUFFS Q 6 HOURS P.R.N. WHEN OUTDOORS. AT HOME SHE USES IPRATROPIUM-ALBUTEROL 3 MALE IN THE NEBULIZER Q 6 HOURS BUT ONLY P.R.N.. SHE IS USING OXYGEN 2 L/MINUTE AT NIGHT AND 2 L/MINUTE DURING THE DAYTIME BUT ONLY NEEDED. LATELY SHE HAS HAD NO ACUTE EXACERBATION. THE DAUGHTER IS CONCERNED THAT WHEN SHE IS TAKEN FOR SHORT VACATION TRIP SHE MAY GET ACUTE EXACERBATION AND WANTS TO KEEP IS SUPPLY OF PREDNISONE ON HAND. [facility] Medical History History of cardioversion (~03/2024) CKD (chronic kidney disease) Hypoxemia Dyspnea on exertion Cardiomyopathy Obesity (BMI 30-39.9) Cataract Wears dentures Use of cane as ambulatory aid Arthritis Low back pain High cholesterol HTN (hypertension) Environmental and seasonal allergies Restrictive lung disease Essential hypertension Atherosclerotic cardiovascular disease COPD (chronic obstructive pulmonary disease) Surgical History History of esophagogastroduodenoscopy (EGD) Hx of colonoscopy History of tubal ligation History of ankle surgery History of lumpectomy of left breast Family History Father Family history of cancer Mother Colon cancer Alzheimer disease Social History Household Members: Family Household Members Other:: SON LIVES IN NEXT APARTMENT Housing: House Are you a primary foster care social worker to a significant other at home: Yes (grandson age 13, son and daughter supportive) Do you presently have visiting nurse or other home services: Yes Alcohol intake: current Alcohol intake frequency: holidays/special occasions only Patient Tobacco Use Status: Former Tobacco user Tobacco use type: Cigarette Advance Directives Date on File: 10/17/23 service: No Review of Systems Const All systems reviewed & are unremarkable except as noted in HPI and below Eyes Reports no additional complaints ENT Reports no additional complaints Card Denies chest pain, Denies irregular heart rhythm and Denies leg edema Resp Reports as per HPI GI Reports no additional complaints Reports no additional complaints Musc Reports back pain (MILD) Skin/Breast Reports system reviewed and no additional complaints, except as documented Neuro Reports no additional complaints and Reports memory loss (MILD) Psych Reports no additional complaints and Reports memory loss (MILD) Endo Reports no additional complaints Physical Exam Vital Signs: Last Vital Signs Pulse 55 02/11/25 14:22 BP 130/70 02/11/25 14:22 Pulse Ox 91 L 02/11/25 14:22 Oxygen Delivery Method Room Air 02/11/25 14:22 Const Other: Moderately overweight General: comfortable, no acute distress, alert and awake Orientation/consciousness: patient oriented x3 HEENT Head: Yes normal to inspection General nose exam: No nasal polyps present and No nasal discharge present Face and sinus: Yes sinuses nontender Mouth: oropharynx normal Throat: Yes posterior oropharynx normal Eyes General: appearance normal, both eyes and all related structures Neck Neck: Yes normal visual inspection, Yes no lymphadenopathy, Yes trachea midline and Yes no JVD Thyroid: Thyroid normal Chest Chest palpation & inspection: normal inspection of the chest, normal palpation of entire chest wall and no tenderness Resp Other: Percussion note resonant, breath sounds are distant with prolonged expiratory phase. No wheezes rhonchi or crepitations are heard on auscultation. Cardio Palpation: normal PMI Rate: regular rate Rhythm: regular rhythm Heart sounds: no gallops and no murmurs GI Palpation (GI): Soft to palpation, nontender, No hepatosplenomegaly present and no masses Auscultation: normal bowel sounds Back/Spine/Pelvis Thoracic/Lumbar Spine: thoracic and lumbar spine normal to inspection and thoraco-lumbar ROM limited Skin General skin exam: no rashes or lesions noted Neuro General: patient oriented x3 and no focal motor deficits Cranial nerves: Yes CN's II-XII intact bilaterally Extrem General: Yes normal to inspection, Yes no clubbing, cyanosis or edema and Yes no calf tenderness Psych Appearance: grossly normal and well kempt Speech and movement: Normal speech and movement present Assessment & Plan Assessment & Plan (1) COPD (chronic obstructive pulmonary disease): Comment: PATIENT DOES HAVE MODERATELY SEVERE OBSTRUCTIVE AIRWAY DISORDER PER PREVIOUS SPIROMETRY. IT IS STAYING VERY STABLE. Code(s): J44.9 - Chronic obstructive pulmonary disease, unspecified Category: Medical Plan: CONTINUE TO USE SYMBICORT 160-4.52 PUFFS B.I.D.. IPRATROPIUM-ALBUTEROL SOLUTION IN THE NEBULIZER Q 6 HOURS P.R.N. ( USUALLY ABOUT TWICE A DAY ) VENTOLIN 2 PUFFS Q 6 HOURS P.R.N. WHEN OUTDOORS. A SHORT SUPPLY OF PREDNISONE TO KEEP ON HAND (2) Restrictive lung disease: Comment: PATIENT DOES HAVE MODERATE RESTRICTIVE DISORDER . THIS IS PROBABLY DUE TO HER GENERAL WEEAKNESS AND MODERATE OBESITY.. Code(s): J98.4 - Other disorders of lung Category: Medical Plan: TRY TO DO DEEP BREATHING EXERCISES 2 OR 3 TIMES A DAY (3) Hypoxemia: Comment: PATIENT IS CASE OF NOCTURNAL HYPOXEMIA AND ALSO EXERCISE INDUCED HYPOXEMIA. GRADUALLY SHE HAS BECOME DEPENDENT ON OXYGEN THROUGHOUT THE DAY AND NIGHT. Code(s): R09.02 - Hypoxemia Category: Medical Plan: USE O2 2 L/MINUTE AT NIGHT. 2 L/MINUTE DURING THE DAYTIME BUT ONLY P.R.N. IF O2 SAT BELOW 90%. Medications: New prednisone 20 mg PO BID 10 tabs 1RF COPD 5 days budesonide-formoterol 160-4.5 mcg/actuation (Symbicort) 2 puffs inhalation BID 10.2 grams 5RF COPD 30 days albuterol sulfate 90 mcg/actuation 2 puffs inhalation Q4-6H PRN 8.5 grams 3RF shortness of breath or wheezing 30 days Coding Level of Care Code Est Pt Level 3 (08760) Diagnoses COPD (chronic obstructive pulmonary disease) J44.9 Restrictive lung disease J98.4 Hypoxemia R09.02
--- OUTSIDE RECORDS SUMMARY | 2025-02-11 14:35 | XMS_ITS | Encounter Summary ---
Author Organization [employer] Address [address] [facility] [address] [place] [address] Care Team Providers Care Custom Motorcycle Painter Name Role Phone Unavailable Primary Care Provider Unavailabl e Reason for Visit * Reason Comments Med Refill Encounter Details Date Type Department Care Team (Late st Contact Info) Description 02/28/2024 Refill [facility] [address] [place] [address] Alessandra Mcnair MD Social History Tobacco Use [...]
--- OUTSIDE RECORDS SUMMARY | 2025-02-11 14:35 | XMS_ITS | Clinical Summary ---
Author Organization [employer] Address [address] [facility] [address] [place] [address] Care Team Providers Care Building Maintenance Worker Name Role Phone Unavailable Primary Care [...] patient's age to complete this topic Meningococcal B Vaccine Aged Out No l onger eligible based on patient's age to complete [...]
== END 2025-02-11 14:42 | disposition home or self-care (01) ==
LOC: HO.HPS 14:14
PROVIDERS: PCP Nurse Practitioner Family; Visit Provider Internal Medicine
DX: J44.9 Chronic obstructive pulmonary disease, unspecified (principal); J98.4 Other disorders of lung; R09.02 Hypoxemia
CPT/HCPCS: 99213

== ENCOUNTER → 2025-02-11 14:08 | Outpatient (BNVA) | payer OTHER, SELFPAY | PROVIDERS: PCP Nurse Practitioner Family; Visit Provider Internal Medicine | DX: J44.9 Chronic obstructive pulmonary disease, unspecified (principal); J98.4 Other disorders of lung; R09.02 Hypoxemia | CPT/HCPCS: 99212 ==

== ENCOUNTER 2025-03-05 15:02 | Outpatient (AMB) | payer MEDICARE, SELFPAY ==
[2025-03-05 15:07] VITALS: BP 130/56; PULSE 57; BMI 32.3
--- NOTE | 2025-03-05 15:07 | MHC.OFFVIS ---
Vital Signs 03/05/25 15:07 Height 5 ft 6 in Weight 200 lb 2.876 oz BMI 32.3 BP 130/56 L Blood Pressure Location Lt brachial Position Sitting Pulse 57 Pulse Source Pulse Oximeter Intake Visit Reasons: follow up after echo Sports Psychologist Required: No Accompanied by: Daughter Allergies hydrochlorothiazide [From ZESTORETIC] Allergy (Intermediate, Verified 03/05/25 15:42) FELT FAINT, syncope lisinopril [LISINOPRIL] Allergy (Intermediate, Verified 03/05/25 15:42) Cough Medication List - Last Reconciled 03/05/25 by Gary Mathew MD albuterol sulfate 90 mcg/actuation 2 puffs inhalation Q4-6H PRN albuterol sulfate 90 mcg/actuation 2 puffs inhalation Q4-6H PRN 30 days alendronate 70 mg PO MO amiodarone 200 mg PO DAILY 90 days apixaban (Eliquis) 2.5 mg PO BID 90 days ascorbic acid (vitamin C) (Vitamin C) 250 mg PO DAILY budesonide-formoterol 160-4.5 mcg/actuation (Symbicort) 2 puffs inhalation ONCE budesonide-formoterol 160-4.5 mcg/actuation (Symbicort) 2 puffs inhalation BID 30 days calcium carbonate-vitamin D3 600 mg-5 mcg (200 unit) 1 tab PO DAILY dapagliflozin propanediol (Farxiga) 10 mg PO DAILY ferrous sulfate 325 mg PO DAILY fluoxetine 20 mg PO DAILY fluticasone propionate 50 mcg/actuation 1 spray intranasal BID furosemide 40 mg PO DAILY furosemide 20 mg PO DAILY PRN guaifenesin 400 mg PO BID ipratropium-albuterol 0.5 mg-3 mg(2.5 mg base)/3 mL 3 mL inhalation Q4H PRN isosorbide mononitrate ER 30 mg See Protocol PO DAILY mecobalamin (vitamin B12) 2,000 mcg PO DAILY memantine 10 mg PO BID metoprolol succinate ER (Toprol XL) 100 mg PO DAILY deqgivpz-uljq-ND-calcium-mins 18 mg iron-400 mcg-500 mg Ca (Women's One Daily) 1 tab PO DAILY nitroglycerin 0.4 mg sublingual Q5M PRN pravastatin 40 mg PO BEDTIME prednisone 20 mg PO BID 5 days HPI Comments Details: Marge returns for follow-up regarding various cardiac issues. She has atrial fibrillation, cardiomyopathy, suspected coronary disease. She is also quite frail. Many comorbidities. Former smoker and has COPD. On supplemental oxygen. Numerous hospitalizations. She has had 2 cardioversions for atrial fibrillation. Also history of GI bleed. Last cardioversion was performed in 2023. After that, she has stable from cardiac standpoint. However, it seems there was an admission for encephalopathy. Daughter thinks heart rate was quite low into the 30s. However, not clear if there was any clear diagnosis at all. Patient's daughter believes symptoms started after taking Farxiga but not entirely clear if that is a true etiology. More than likely it was just a coincidence. Additionally, daughter believes that there were lot of stressful events in the family just at that time and she thinks that might have triggered patient into hospitalization. Otherwise, has had recent cough and question of possible aspiration as well. Seems to be on steroids. [facility] Medical History History of cardioversion (~03/2024) CKD (chronic kidney disease) Hypoxemia Dyspnea on exertion Cardiomyopathy Obesity (BMI 30-39.9) Cataract Wears dentures Use of cane as ambulatory aid Arthritis Low back pain High cholesterol HTN (hypertension) Environmental and seasonal allergies Restrictive lung disease Essential hypertension Atherosclerotic cardiovascular disease COPD (chronic obstructive pulmonary disease) Surgical History History of esophagogastroduodenoscopy (EGD) Hx of colonoscopy History of tubal ligation History of ankle surgery History of lumpectomy of left breast Family History Father Family history of cancer Mother Colon cancer Alzheimer disease Social History Household Members: Family Household Members Other:: SON LIVES IN NEXT APARTMENT Housing: House Are you a 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 animal 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 other at home: Yes (grandson age 13, son and daughter supportive) Do you presently have visiting nurse or other home services: Yes Alcohol intake: current Alcohol intake frequency: holidays/special occasions only Patient Tobacco Use Status: Former Tobacco user Tobacco use type: Cigarette Advance Directives Date on File: 10/17/23 service: No Review of Systems Const Denies chills, Denies fatigue, Denies fever(s), Denies frequent falls, Denies weakness, Denies weight gain and Denies weight loss ENT Denies dizziness Card Denies chest pain, Denies leg edema, Denies lightheadedness, Denies palpitations, Denies dyspnea and Denies dyspnea on exertion Resp Denies cough, Denies dyspnea and Denies dyspnea on exertion GI Denies hematochezia Musc Denies abnormal gait, Denies muscle weakness, Denies numbness, Denies radiating pain into limb and Denies tingling Neuro Denies abnormal gait, Denies dizziness, Denies frequent falls, Denies numbness, Denies tingling and Denies weakness Endo Denies fatigue and Denies palpitations Physical Exam Vital Signs: Last Vital Signs Pulse 57 03/05/25 15:07 BP 130/56 L 03/05/25 15:07 BMI result Body Mass Index 32.3 Const General: comfortable and no acute distress Orientation/consciousness: patient oriented x3 HEENT Other: Unremarkable Head: Yes normal to inspection Neck Neck: Yes normal visual inspection Chest Chest palpation & inspection: normal inspection of the chest Resp Auscultation: wheezes and diminished lung sounds Cardio Palpation: normal PMI Heart sounds: S1 normal heart sound present, S2 normal heart sound present, no gallops, no murmurs and no rubs GI Palpation (GI): Soft to palpation Back/Spine/Pelvis Other: unremarkable Skin General skin exam: no rashes or lesions noted Neuro General: patient oriented x3 Extrem General: Yes normal to inspection Psych Mental Status: mental status grossly normal Assessment & Plan Assessment & Plan (1) PAF (paroxysmal atrial fibrillation): Code(s): I48.0 - Paroxysmal atrial fibrillation Category: Medical Plan: She has had a couple of cardioversions. Maintain amiodarone. As daughter thinks there might have been a bradycardia event precipitating hospitalization encephalopathy, we can try down on the beta-blockers. Daughter will try 50 mg of metoprolol instead. As she is a nurse she states she can monitor her and let us know. We will do a Holter in about 4 weeks' time. (2) Cardiomyopathy: Code(s): I42.9 - Cardiomyopathy, unspecified Category: Medical Qualifiers: Cardiomyopathy type: unspecified Qualified Code(s): I42.9 - Cardiomyopathy, unspecified Plan: In the most recent echocardiogram, LVEF is 55-60% with wall motion abnormalities from underlying coronary disease. In the prior study, it was 31%. Hence significantly improved. Remains on beta-blockers, diuretics. She has got CKD and creatinine have been up and down. Has not been on Entresto or CARL inhibitors and reluctant to start. To re-attempt Farxiga and we had a long discussion about this. The question of encephalopathy is probably not related to Farxiga. If any issues, daughter will monitor her and let us know. (3) Atherosclerotic cardiovascular disease: Code(s): I25.10 - Atherosclerotic heart disease of [place] coronary artery without angina pectoris Category: Medical Plan: Myocardial perfusion imaging study 2020 shows probable old infarct along the inferior wall, but no ischemia. Overall, suspect underlying coronary disease but she does not have any overt angina. Cardiac catheterization has been discussed numerous times in the past but because of various issues including age, frailty, GI bleed history, renal insufficiency, oxygen dependence extra, decided to just treat medically and daughter has been in full agreement. (4) Essential hypertension: Code(s): I10 - Essential (primary) hypertension Category: Medical Plan: Stable. Plan Discussion Notes During the visit, I discussed with the patient the suspected drug-induced bradycardia, emphasizing that no conclusive link to Farxiga was established. Patient misattributed symptoms such as confusion and low heart rate to Farxiga, and reassurance was provided. Metoprolol dose reduction has been consented to, recognizing individual patient therapy response. Potential reintroduction of Farxiga post-monitoring was covered, outlining its uses in managing heart failure. A home monitoring plan was generated to ensure early detection of adverse changes and improve patient reassurance. Additionally, the patient will continue monitoring symptoms and maintain communication for any issues related to medication or health status changes. All treatment changes were discussed with the patient, and consent was obtained to implement the proposed medication adjustments. Patient was informed and verbally consented to the use of an ambient scribe for clinic note documentation during this visit. Orders: Orders ECG 3 day holter monitor 4 Weeks I48.0 - Paroxysmal atrial fibrillation Patient Instructions: - Start taking Farxiga and monitor for any side effects. - Decrease Metoprolol dose to 50 mg and let us know if any issues. - Monitor heart rate and any recurrent symptoms at home. - Follow up with Holter as scheduled. - Watch for any changes in condition like dizziness or weakness and report ZAC. - If needed, consult via the patient portal or directly over phone communication. - Contact us immediately if you experience worsening symptoms. Coding Level of Care Code Est Pt Level 4 (30074) Complex EM visit Add On G2211 Diagnoses PAF (paroxysmal atrial fibrillation) I48.0 Cardiomyopathy, unspecified type I42.9 Cardiomyopathy type: unspecified Atherosclerotic cardiovascular disease I25.10 Essential hypertension I10
--- OUTSIDE RECORDS SUMMARY | 2025-03-05 17:42 | XMS_ITS | Encounter Summary ---
Author Organization [employer] Address [address] [place] [address] Care Team Providers Care Tar Boiler Name Role Phone Unavailable Primary Care Provider Unavailabl e Reason for Visit * Reason Comments Med Refill Encounter Details Date Type Department Care Team (Late st Contact Info) Description 02/28/2024 Refill [facility] [address] [place] [address] Alessandra Mcnair MD Social History Tobacco Use [...]
== END 2025-03-05 15:30 | disposition home or self-care (01) ==
LOC: HO.HCS 15:03
PROVIDERS: PCP Nurse Practitioner Family; Visit Provider Internal Medicine
DX: I48.0 Paroxysmal atrial fibrillation (principal); I42.9 Cardiomyopathy, unspecified; I25.10 Atherosclerotic heart disease of native coronary artery without angina pectoris; I10 Essential (primary) hypertension
CPT/HCPCS: 99214; G2211

== ENCOUNTER → 2025-03-05 15:02 | Outpatient (BNVA) | payer MEDICARE, SELFPAY | PROVIDERS: PCP Nurse Practitioner Family; Visit Provider Internal Medicine | DX: N18.32 Chronic kidney disease, stage 3b (principal); N17.9 Acute kidney failure, unspecified; D64.9 Anemia, unspecified; I10 Essential (primary) hypertension; I42.9 Cardiomyopathy, unspecified; I25.10 Atherosclerotic heart disease of native coronary artery without angina pectoris; I48.0 Paroxysmal atrial fibrillation | CPT/HCPCS: 99212 ==

== ENCOUNTER 2025-03-05 15:38 | Outpatient (AMB) | payer OTHER, SELFPAY ==
[2025-03-05 15:40] VITALS: BP 144/68; PULSE 57; O2SAT 91; BMI 32.3
--- NOTE | 2025-03-05 15:40 | HO.NEPHOV ---
Vital Signs 03/05/25 15:40 Height 5 ft 6 in Weight 200 lb BMI 32.3 BP 144/68 H Blood Pressure Location Rt brachial Position Sitting Pulse 57 Pulse Source Pulse Oximeter Pulse Oximetry (%) 91 L Oxygen Delivery Method Room Air Intake Visit Reasons: RADHA/Conf Health Information Technologist Required: No Accompanied by: Daughter Allergies hydrochlorothiazide [From ZESTORETIC] Allergy (Intermediate, Verified 03/05/25 15:42) FELT FAINT, syncope lisinopril [LISINOPRIL] Allergy (Intermediate, Verified 03/05/25 15:42) Cough Medication List - Last Reconciled 03/05/25 by Benson Li MD albuterol sulfate 90 mcg/actuation 2 puffs inhalation Q4-6H PRN albuterol sulfate 90 mcg/actuation 2 puffs inhalation Q4-6H PRN 30 days alendronate 70 mg PO MO amiodarone 200 mg PO DAILY 90 days apixaban (Eliquis) 2.5 mg PO BID 90 days ascorbic acid (vitamin C) (Vitamin C) 250 mg PO DAILY budesonide-formoterol 160-4.5 mcg/actuation (Symbicort) 2 puffs inhalation ONCE budesonide-formoterol 160-4.5 mcg/actuation (Symbicort) 2 puffs inhalation BID 30 days calcium carbonate-vitamin D3 600 mg-5 mcg (200 unit) 1 tab PO DAILY dapagliflozin propanediol (Farxiga) 10 mg PO DAILY ferrous sulfate 325 mg PO DAILY fluoxetine 20 mg PO DAILY fluticasone propionate 50 mcg/actuation 1 spray intranasal BID furosemide 40 mg PO DAILY furosemide 20 mg PO DAILY PRN guaifenesin 400 mg PO BID ipratropium-albuterol 0.5 mg-3 mg(2.5 mg base)/3 mL 3 mL inhalation Q4H PRN isosorbide mononitrate ER 30 mg See Protocol PO DAILY mecobalamin (vitamin B12) 2,000 mcg PO DAILY memantine 10 mg PO BID metoprolol succinate ER (Toprol XL) 100 mg PO DAILY xmhqohhl-kjxf-NK-calcium-mins 18 mg iron-400 mcg-500 mg Ca (Women's One Daily) 1 tab PO DAILY nitroglycerin 0.4 mg sublingual Q5M PRN pravastatin 40 mg PO BEDTIME prednisone 20 mg PO BID 5 days HPI Comments Details: Marge returns for follow-up regarding various cardiac issues. She has atrial fibrillation, cardiomyopathy, suspected coronary disease. She is also quite frail. Many comorbidities. Former smoker and has COPD. On supplemental oxygen. Numerous hospitalizations. She has had 2 cardioversions for atrial fibrillation. Also history of GI bleed. After the last cardioversion in 2023, she has generally okay. Shortness of breath is at baseline. She comes in a wheelchair with the daughter who is a nurse. No recent hospitalizations. She has gained about 20 lb or so in weight. Dietary indiscretion during the holiday time. 03/05/25 Doing OK. Recently treated with a course of Doxy. Weight unchanged. No urinary issues. [facility] Medical History History of cardioversion (~03/2024) CKD (chronic kidney disease) Hypoxemia Dyspnea on exertion Cardiomyopathy Obesity (BMI 30-39.9) Cataract Wears dentures Use of cane as ambulatory aid Arthritis Low back pain High cholesterol HTN (hypertension) Environmental and seasonal allergies Restrictive lung disease Essential hypertension Atherosclerotic cardiovascular disease COPD (chronic obstructive pulmonary disease) Surgical History History of esophagogastroduodenoscopy (EGD) Hx of colonoscopy History of tubal ligation History of ankle surgery History of lumpectomy of left breast Family History Father Family history of cancer Mother Colon cancer Alzheimer disease Social History Household Members: Family Household Members Other:: SON LIVES IN NEXT APARTMENT Housing: House Are you a 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 Comfortable. Neck is supple. Mucosa moist. Lungs bilateral scattered rhonchi. Heart S1-S2 heard no gallop. Abdomen soft. Extremities no edema. No involuntary movements. No myoclonus. Results Reviewed Nephrology Results: Hgb 10.8 g/dl (12.0-16.0) L 12/10/24 WBC 9.8 X10*3/uL (4.8-10.8) 12/10/24 Plt Count 291 X10*3/uL (160-400) 12/10/24 Sodium 140 mmol/L (135-145) 12/11/24 Potassium 4.3 mmol/L (3.3-5.1) 12/11/24 Chloride 104 mmol/L (96-108) 12/11/24 Carbon Dioxide 29 mmol/L (22-29) 12/11/24 BUN 33 mg/dL (9-16) H 12/11/24 Creatinine 1.45 mg/dL (0.5-1.4) H 12/11/24 Calcium 8.8 mg/dL (8.4-10.2) 12/11/24 Urine Protein 30 (1+) mg/dL (Neg-Trace) H 12/10/24 Assessment & Plan Assessment & Plan (1) RADHA (acute kidney injury): Code(s): N17.9 - Acute kidney failure, unspecified Category: Medical (2) CKD (chronic kidney disease): Code(s): N18.9 - Chronic kidney disease, unspecified Category: Medical Qualifiers: Chronic kidney disease stage: stage 3 (moderate) Chronic kidney disease stage 3 subtype: stage 3b (GFR 30-44) Qualified Code(s): N18.32 - Chronic kidney disease, stage 3b (3) Anemia: Code(s): D64.9 - Anemia, unspecified Category: Medical Plan Elderly woman with COPD and a.flutter s/p cardioversion sustained RADHA due to hypoperfusion from aggressive diuresis Clinically appears euvolemic today Currently on Lasix 40 mg QD BP is acceptable Goal is to slow the progression of kidney disease Keep on low salt diet Continue to avoid nephrotoxins Agree with adding Farxiga Anemia Multifactorial HCT has improved Lab work ordered Orders: Orders Basic Metabolic Panel 4 Months N18.32 - Chronic kidney disease, stage 3b Complete Blood Count no Diff 4 Months N18.32 - Chronic kidney disease, stage 3b Coding Level of Care Code Est Pt Level 4 (99605) Diagnoses RADHA (acute kidney injury) N17.9 Stage 3b chronic kidney disease N18.32 Chronic kidney disease stage: stage 3 (moderate) Chronic kidney disease stage 3 subtype: stage 3b (GFR 30-44) Anemia D64.9
== END 2025-03-05 16:00 | disposition home or self-care (01) ==
LOC: HO.HKA 15:39
PROVIDERS: PCP Nurse Practitioner Family; Visit Provider Internal Medicine Hypertension Specialist
DX: N17.9 Acute kidney failure, unspecified (principal); N18.32 Chronic kidney disease, stage 3b; D64.9 Anemia, unspecified
CPT/HCPCS: 99214

== ENCOUNTER 2025-03-12 15:19 | Outpatient (AMB) | payer MEDICARE, SELFPAY ==
[2025-03-12 15:34] VITALS: BP 118/52; PULSE 58; O2SAT 97
--- NOTE | 2025-03-12 15:34 | MHC.OFFVIS ---
Vital Signs 03/12/25 15:34 Height 5 ft 6 in BP 118/52 L Blood Pressure Location Lt brachial Position Sitting Pulse 58 Pulse Source Pulse Oximeter Pulse Oximetry (%) 97 Oxygen Delivery Method Nasal Cannula Oxygen Flow Rate 3 Intake Visit Reasons: cough Intake Note: pt is here for sick visit, cough with phelgm, started with yellow but now clear, thick and hard to get out. Ob Nurse Required: No Allergies hydrochlorothiazide (From ZESTORETIC) Allergy (Intermediate, Verified 03/12/25 16:32) FELT FAINT, syncope lisinopril (LISINOPRIL) Allergy (Intermediate, Verified 03/12/25 16:32) Cough Medication List - Last Reconciled 03/12/25 by Mini Martinez MD albuterol sulfate 90 mcg/actuation 2 puffs inhalation Q4-6H PRN albuterol sulfate 90 mcg/actuation 2 puffs inhalation Q4-6H PRN 30 days alendronate 70 mg PO MO amiodarone 200 mg PO DAILY 90 days apixaban (Eliquis) 2.5 mg PO BID 90 days ascorbic acid (vitamin C) (Vitamin C) 250 mg PO DAILY budesonide-formoterol 160-4.5 mcg/actuation (Symbicort) 2 puffs inhalation ONCE budesonide-formoterol 160-4.5 mcg/actuation (Symbicort) 2 puffs inhalation BID 30 days calcium carbonate-vitamin D3 600 mg-5 mcg (200 unit) 1 tab PO DAILY dapagliflozin propanediol (Farxiga) 10 mg PO DAILY ferrous sulfate 325 mg PO DAILY fluoxetine 20 mg PO DAILY fluticasone propionate 50 mcg/actuation 1 spray intranasal BID furosemide 40 mg PO DAILY furosemide 20 mg PO DAILY PRN guaifenesin 400 mg PO BID ipratropium-albuterol 0.5 mg-3 mg(2.5 mg base)/3 mL 3 mL inhalation Q4H PRN isosorbide mononitrate ER 30 mg See Protocol PO DAILY mecobalamin (vitamin B12) 2,000 mcg PO DAILY memantine 10 mg PO BID metoprolol succinate ER (Toprol XL) 100 mg PO DAILY wtdrcymw-qytw-IK-calcium-mins 18 mg iron-400 mcg-500 mg Ca (Women's One Daily) 1 tab PO DAILY nitroglycerin 0.4 mg sublingual Q5M PRN pravastatin 40 mg PO BEDTIME prednisone 20 mg PO BID 5 days Do you need a note to return to daycare/school/sports/work: No HPI HPI cough: Details: THIS 80 YEARS OLD FEMALE IS BROUGHT TODAY BY HER DAUGHTER FOR AN URGENT VISIT, COMPLAINING OF INCREASED COUGH, CHEST CONGESTION AND SHORTNESS OF BREATH SINCE LAST WEEK. APPARENTLY IT STARTED WHEN SHE WAS OUT FOR A PICNIC. SHE STARTED HAVING INCREASED COUGH WITH FEELING OF CONGESTION OF THE CHEST. AT THE SAME TIME HER STATIONARY CONCENTRATOR WAS NOT WORKING AND SHE WAS NOT GETTING OXYGEN FOR ABOUT 2 DAYS. HER DAUGHTER GAVE HER PREDNISONE 20 MG B.I.D. FOR 5 DAYS WHICH SHE HAD FROM BEFORE. SHE HAS BEEN USING OXYGEN WITH PORTABLE CONCENTRATOR, AND TODAY THE OXYGEN COMPANY WILL BE BRINGING A NEW STATIONARY. CONCENTRATOR TO THE HOUSE SHE WAS BROUGHT IN TODAY TO BE CHECKED AND MAKE SURE. THAT THERE IS NOTHING MORE SERIOUS GOING ON TODAY SHE COMPLAINS OF MILD INTERMITTENT COUGH WITHOUT. ANY EXPECTORATION AND SHE IS SLIGHTLY MORE SHORT. OF BREATH AND THAN USUAL SHE IS USING O2 3 L/MINUTE AND WITH THAT HER O2 SAT IS 99%. I CUT DOWN THE FLOW TO 2 L/MINUTE AND HER O2 SAT STAY MAIN AROUND 94%. [facility] Medical History History of cardioversion (~03/2024) CKD (chronic kidney disease) Hypoxemia Dyspnea on exertion Cardiomyopathy Obesity (BMI 30-39.9) Cataract Wears dentures Use of cane as ambulatory aid Arthritis Low back pain High cholesterol HTN (hypertension) Environmental and seasonal allergies Restrictive lung disease Essential hypertension Atherosclerotic cardiovascular disease COPD (chronic obstructive pulmonary disease) Surgical History History of esophagogastroduodenoscopy (EGD) Hx of colonoscopy History of tubal ligation History of ankle surgery History of lumpectomy of left breast Family History Father Family history of cancer Mother Colon cancer Alzheimer disease Social History Household Members: Family Household Members Other:: SON LIVES IN NEXT APARTMENT Housing: House Are you 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 rn home 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 significant other at home: Yes (grandson age 13, son and daughter supportive) Do you presently have visiting nurse or other home services: Yes Alcohol intake: current Alcohol intake frequency: holidays/special occasions only Patient Tobacco Use Status: Former Tobacco user Tobacco use type: Cigarette Advance Directives Date on File: 10/17/23 service: No Review of Systems Const All systems reviewed & are unremarkable except as noted in HPI and below Eyes Reports no additional complaints ENT Reports no additional complaints Card Denies chest pain, Denies irregular heart rhythm and Denies leg edema Resp Reports as per HPI GI Reports no additional complaints Reports no additional complaints Musc Reports back pain (MILD) Skin/Breast Reports system reviewed and no additional complaints, except as documented Neuro Reports no additional complaints and Reports memory loss (MILD) Psych Reports no additional complaints and Reports memory loss (MILD) Endo Reports no additional complaints Physical Exam Vital Signs: Last Vital Signs Pulse 58 03/12/25 15:34 BP 118/52 L 03/12/25 15:34 Pulse Ox 97 03/12/25 15:34 Oxygen Delivery Method Nasal Cannula 03/12/25 15:34 Oxygen Flow Rate 3 03/12/25 15:34 Const Other: Moderately overweight General: comfortable, no acute distress, alert and awake Orientation/consciousness: patient oriented x3 HEENT Head: Yes normal to inspection General nose exam: No nasal polyps present and No nasal discharge present Face and sinus: Yes sinuses nontender Mouth: oropharynx normal Throat: Yes posterior oropharynx normal Eyes General: appearance normal, both eyes and all related structures Neck Neck: Yes normal visual inspection, Yes no lymphadenopathy, Yes trachea midline and Yes no JVD Thyroid: Thyroid normal Chest Chest palpation & inspection: normal inspection of the chest, normal palpation of entire chest wall and no tenderness Resp Other: Percussion note resonant, breath sounds are distant with prolonged expiratory phase. A few wheezes over the basilar areas . Cardio Palpation: normal PMI Rate: regular rate Rhythm: regular rhythm Heart sounds: no gallops and no murmurs GI Palpation (GI): Soft to palpation, nontender, No hepatosplenomegaly present and no masses Auscultation: normal bowel sounds Back/Spine/Pelvis Thoracic/Lumbar Spine: thoracic and lumbar spine normal to inspection and thoraco-lumbar ROM limited Skin General skin exam: no rashes or lesions noted Neuro General: patient oriented x3 and no focal motor deficits Cranial nerves: Yes CN's II-XII intact bilaterally Extrem General: Yes normal to inspection, Yes no clubbing, cyanosis or edema and Yes no calf tenderness Psych Appearance: grossly normal and well kempt Speech and movement: Normal speech and movement present Assessment & Plan Assessment & Plan (1) COPD (chronic obstructive pulmonary disease): Comment: PATIENT DOES HAVE MODERATELY SEVERE OBSTRUCTIVE AIRWAY DISORDER PER PREVIOUS SPIROMETRY. IT IS STAYING VERY STABLE. * she has had mild low-grade acute exacerbation since last week. Partially improved with a course of prednisone. Still has some residual chest congestion. Code(s): J44.9 - Chronic obstructive pulmonary disease, unspecified Category: Medical Plan: Continue all the present meds. She has already been treated with a course of prednisone. I will order Z-Ismael to take care of any possible bacterial infection. (2) Hypoxemia: Comment: PATIENT IS CASE OF NOCTURNAL HYPOXEMIA AND ALSO EXERCISE INDUCED HYPOXEMIA. GRADUALLY SHE HAS BECOME DEPENDENT ON OXYGEN THROUGHOUT THE DAY AND NIGHT. SHE WAS OUT OF O2 FOR THE LAST 2 DAYS BECAUSE HER STATIONARY CONCENTRATOR WAS NOT FUNCTIONING. THE [employer] IS BRINGING. THE NEW CONCENTRATOR HOME Code(s): R09.02 - Hypoxemia Category: Medical Plan: ADVISED TO USE O2 2 L/MINUTE AT NIGHT WHEN SLEEPING. AND SHE CAN CONTINUE TO USE 2 L/MINUTE DURING THE DAYTIME WELL. Medications: New doxycycline hyclate 100 mg PO BID 14 tabs 0RF BRONCHITIS 7 days Coding Level of Care Code Est Pt Level 3 (30810) Diagnoses COPD (chronic obstructive pulmonary disease) J44.9 Hypoxemia R09.02
--- OUTSIDE RECORDS SUMMARY | 2025-03-12 16:35 | XMS_ITS | Encounter Summary ---
Author Organization [employer] Address [address] [facility] 7[address] [place] [address] Care Team Providers Care Coke Oven Patcher Name Role Phone Unavailable Primary Care Provider Unavailabl e Reason for Visit * Reason Comments Med Refill Encounter Details Date Type Department Care Team (Late st Contact Info) Description 02/28/2024 Refill [facility] [address] [place] [address] Alessandra Mcnair MD Social History Tobacco Use [...]
== END 2025-03-12 16:09 | disposition home or self-care (01) ==
LOC: HO.HPS 15:19
PROVIDERS: PCP Nurse Practitioner Family; Visit Provider Internal Medicine
DX: J44.9 Chronic obstructive pulmonary disease, unspecified (principal); R09.02 Hypoxemia
CPT/HCPCS: 99213

== ENCOUNTER → 2025-03-12 15:19 | Outpatient (BNVA) | payer MEDICARE, SELFPAY | PROVIDERS: PCP Nurse Practitioner Family; Visit Provider Internal Medicine | DX: R06.02 Shortness of breath (principal); J44.9 Chronic obstructive pulmonary disease, unspecified; R09.02 Hypoxemia | CPT/HCPCS: 99212 ==

== ENCOUNTER → 2025-06-15 08:12 | Outpatient (REF) | payer MEDICARE, SELFPAY ==
--- NOTE | 2025-06-15 08:15 | HM_ITS ---
* Total monitoring time 3 days. * Underlying rhythm is sinus with an average rate of 58/Min. * Rare supraventricular ectopy. * Ventricular ectopy noted with a burden of 1.9%. * No significant pauses or high-grade AV blocks. * No patient markers or diary events. MTDD
== END ==
LOC: HO.CARD 08:12
PROVIDERS: PCP Nurse Practitioner Family; Visit Provider Internal Medicine
DX: I48.0 Paroxysmal atrial fibrillation (principal)
CPT/HCPCS: 93242

== ENCOUNTER → 2025-06-15 08:15 | Outpatient (BNV) | payer MEDICARE, SELFPAY | PROVIDERS: PCP Nurse Practitioner Family; Visit Provider Internal Medicine | DX: I49.3 Ventricular premature depolarization (principal); I49.49 Other premature depolarization | CPT/HCPCS: 93244 ==

== ENCOUNTER 2025-07-16 10:30 | Outpatient (REF) | payer MEDICARE, SELFPAY ==
[2025-07-16 13:28] LABS: Hematocrit 37.4 % (37.0-47.0); Hemoglobin 11.7 g/dl (12.0-16.0); Mean Corpuscular HGB Conc 31.3 g/dl (31.0-35.0); Mean Corpuscular Hemoglobin 29.3 pg (27.0-33.0); Mean Corpuscular Volume 93.7 fL (80.0-98.0); NRBC Abs Auto 0.000 X10*3/uL (0.0-0.012); NRBC Pct Auto 0.0 /100WBC (0.0-0.2); Platelet Count 297 X10*3/uL (160-400); Red Blood Count 3.99 X10*6/uL (4.20-5.50); White Blood Count 9.3 X10*3/uL (4.8-10.8)
[2025-07-16 13:59] LABS: Anion Gap 13 (12-20); Blood Urea Nitrogen 23 mg/dL (9-16); Calcium 8.4 mg/dL (8.4-10.2); Carbon Dioxide 32 mmol/L (22-29); Chloride 102 mmol/L (96-108); Estimated Glomerular Filt Rate 23; Potassium 3.7 mmol/L (3.3-5.1); Sodium 143 mmol/L (135-145)
--- OUTSIDE RECORDS SUMMARY | 2025-07-16 15:19 | XMS_ITS | Encounter Summary ---
Author Organization [facility] Address [address] [place] [address] Phone Care Team Providers Care Change Control Specialist Name Role Phone Unknown, Unknown Primary Care Provider Kit Rosas W DO Unavailable [phone] Danilo Dhillon MD Primary Care Provider [phone] Encounter Details Date Type Department Care Team (Late st Contact Info) Description 03/15/2018 Ancillary Orders [facility],Outside Imaging [address] [place] [address] System, Provider [place] In, [place] [address] Social History Tobacco Use Types Packs/Day Years Used Date Smoking Tobacco: Never Assessed Comments Unknown Sex and Gender Information Value Date Recorded Sex Assigned at Female 04/01/2018 9:14 AM EDT Legal Sex Female 10:10 PM EDT Gender Identity Female 04/01/2018 9:14 AM EDT Sexual Orientation Not on file documented as of this encounter Plan of Treatment Not on file documented as of this encounter Results * Mammogram Outside (No Interpretation) (02/21/2018 12:15 AM EDT) Narrative SYSTEMGENERATED, DOCUMENTATION - 03/15/2018 1:27 PM EDT This study is for PACS storage only and not for interpretation. us Provider Not In System PhD IMG OUTSIDE IMAGING W /OUT INTERPRETATION Final Result documented in this encounter Visit Diagnoses Not on filedocumented in this encounter Care Teams Change Control Specialist Relationship Specialty Start Date End Date Unknown, Unknown, PCP - General 03/15/18 03/21/18 Danilo Dhillon MD [address] [place] [address] [place] [address] PCP - General Internal Medicine 03/22/18 Kit Davis DO [address] [place] [id number] [email or web address] Hematology and Oncology 03/22/18 documented as of this encounter Additional Source Comments The information contained in this document represents components of the legal health record. It is not the complete legal health record.[facility]
--- OUTSIDE RECORDS SUMMARY | 2025-07-16 15:19 | XMS_ITS | Encounter Summary ---
Author Organization [facility] Address [address] [address] Phone Care Team Providers Care Utility Locate Technician Name Role Phone Unknown, Unknown Primary Care Provider Kit Rosas W DO Unavailable [phone] Danilo Dhillon MD Primary Care Provider [phone] Encounter Details Date Type Department Care Team (Late st Contact Info) Description 03/15/2018 Ancillary Orders [facility],Outside Imaging [address] [place] [address] System, Provider [place] In, [place] [address] Social History Tobacco Use Types Packs/Day Years [...] documented as of this encounter Results * US Breast Outside (No Interpretation) (02/21/2018 12:00 AM EDT) Narrative SYSTEMGENERATED, DOCUMENTATION - 03/15/2018 1:23 PM EDT This study is for PACS storage only and not for interpretation. us Provider Not In System PhD IMG OUTSIDE IMAGING W /OUT INTERPRETATION Final Result documented in this encounter Visit Diagnoses Not on filedocumented in this encounter Care Teams Utility Locate Technician Relationship Specialty Start Date End Date Unknown, Unknown, PCP - General 03/15/18 03/21/18 Danilo Dhillon MD [address] [place] [address] [place] [address] PCP - General Internal Medicine 03/22/18 Kit Davis DO [address] [place] [id number] [email or web address] [email or web address] Hematology and Oncology 03/22/18 documented as of this encounter Additional Source Comments The information contained in this document represents components of the legal health record. It is not the complete legal health record.[facility]
--- OUTSIDE RECORDS SUMMARY | 2025-07-16 15:19 | XMS_ITS | Encounter Summary ---
Author Organization [facility] Address [address] [address] Phone Care Team Providers Care Director Of Head Start Name Role Phone Unknown, Unknown Primary Care Provider Kit Rosas W DO Unavailable [phone] Danilo Dhillon MD Primary Care Provider Encounter Details Date Type Department Care Team (Late st Contact Info) Description 03/15/2018 Ancillary Orders [facility],Outside Imaging [address] [place] [address] System, Provider [place] In, [place] [address] Social History Tobacco Use Types Packs/Day Years [...] Results * US Breast Outside (No Interpretation) (02/12/2018 12:15 AM EDT) Narrative SYSTEMGENERATED, DOCUMENTATION - 03/15/2018 1:28 PM EDT This study is for PACS storage only and not for interpretation. us Provider Not In System PhD IMG OUTSIDE IMAGING W /OUT INTERPRETATION Final Result documented in this encounter Visit Diagnoses Not on filedocumented in this encounter Care Teams Director Of Head Start Relationship Specialty Start Date End Date Unknown, Unknown, PCP - General 03/15/18 03/21/18 Danilo Dhillon MD [address] [place] [address] [place] [address] PCP - General Internal Medicine 03/22/18 Kit Davis DO [address] [place] [phone] [email or web address] Hematology and Oncology 03/22/18 documented as of this encounter Additional Source Comments The information contained in this document represents components of the legal health record. It is not the complete legal health record.[facility]
--- OUTSIDE RECORDS SUMMARY | 2025-07-16 15:19 | XMS_ITS | Encounter Summary ---
Author Organization [facility] Address [address] [place] [address] Phone Care Team Providers Care Septic Tank Cleaner Name Role Phone Unknown, Unknown Primary Care Provider Kit Rosas W DO Unavailable [phone] Danilo Dhillon MD Primary Care Provider [phone] Encounter Details Date Type Department Care Team (Late st Contact Info) Description 03/15/2018 Ancillary Orders [facility],Outside Imaging [address] [place] [address] System, Provider Not In, [place] [address] Social History Tobacco Use Types Packs/Day Years [...] encounter Results * Mammogram Outside (No Interpretation) (03/08/2018 12:15 AM EDT) Narrative SYSTEMGENERATED, DOCUMENTATION - 03/15/2018 1:19 PM EDT This study is for PACS storage only and not for interpretation. us Provider Not In System PhD IMG OUTSIDE IMAGING W /OUT INTERPRETATION Final Result documented in this encounter Visit Diagnoses Not on filedocumented in this encounter Care Teams Septic Tank Cleaner Relationship Specialty Start Date End Date Unknown, Unknown, PCP - General 03/15/18 03/21/18 Danilo Dhillon MD [address] [place] [address] [place] [address] PCP - General Internal Medicine 03/22/18 Kit Davis DO [address] [place] [phone] [email or web address] Hematology and Oncology 03/22/18 documented as of this encounter Additional Source Comments The information contained in this document represents components of the legal health record. It is not the complete legal health record.[facility]
--- OUTSIDE RECORDS SUMMARY | 2025-07-16 15:20 | XMS_ITS | Encounter Summary ---
Author Organization [facility] Address [address] [address] Phone Care Team Providers Care Diagnostics Sales Developer Name Role Phone Unknown, Unknown Primary Care Provider Kit Rosas W DO Unavailable [phone] Danilo Dhillon MD Primary Care Provider [phone] Encounter Details Date Type Department Care Team (Late st Contact Info) Description 03/15/2018 Ancillary Orders [facility],Outside Imaging [address] [place] [address] System, Provider [place] In, [place] [address] Social History Tobacco Use Types Packs/Day Years [...] documented as of this encounter Results * NM Bone Outside (No Interpretation) (03/08/2018 12:00 AM EDT) Narrative SYSTEMGENERATED, DOCUMENTATION - 03/15/2018 1:18 PM EDT This study is for PACS storage only and not for interpretation. us Provider Not In System PhD IMG OUTSIDE IMAGING W /OUT INTERPRETATION Final Result documented in this encounter Visit Diagnoses Not on filedocumented in this encounter Care Teams Diagnostics Sales Developer Relationship Specialty Start Date End Date Unknown, Unknown, PCP - General 03/15/18 03/21/18 Danilo Dhillon MD [address] [place] [address] [place] [address] PCP - General Internal Medicine 03/22/18 Kit Davis DO [address] [place] [phone] [email or web address] Hematology and Oncology 03/22/18 documented as of this encounter Additional Source Comments The information contained in this document represents components of the legal health record. It is not the complete legal health record.[facility]
--- OUTSIDE RECORDS SUMMARY | 2025-07-16 15:20 | XMS_ITS | Encounter Summary ---
Author Organization [facility] Address [address] [place] [address] Phone Care Team Providers Care Skilled Nursing Facilities Professional Name Role Phone Unknown, Unknown Primary Care Provider Kit Rosas W DO Unavailable [phone] Danilo Dhillon MD Primary Care Provider [phone] Encounter Details Date Type Department Care Team (Late st Contact Info) Description 03/15/2018 Ancillary Orders [facility],Outside Imaging [address] [place] [address] System, Provider [place] In, [place] [address] Social History Tobacco Use Types Packs/Day Years [...] encounter Results * Mammogram Outside (No Interpretation) (02/12/2018 12:00 AM EDT) Narrative SYSTEMGENERATED, DOCUMENTATION - 03/15/2018 1:17 PM EDT This study is for PACS storage only and not for interpretation. us Provider Not In System PhD IMG OUTSIDE IMAGING W /OUT INTERPRETATION Final Result documented in this encounter Visit Diagnoses Not on filedocumented in this encounter Care Teams Skilled Nursing Facilities Professional Relationship Specialty Start Date End Date Unknown, Unknown, PCP - General 03/15/18 03/21/18 Danilo Dhillon MD [address] [place] [address] [place] [address] PCP - General Internal Medicine 03/22/18 Kit Davis DO [address] [place] [phone] [email or web address] Hematology and Oncology 03/22/18 documented as of this encounter Additional Source Comments The information contained in this document represents components of the legal health record. It is not the complete legal health record.[facility]
--- OUTSIDE RECORDS SUMMARY | 2025-07-16 15:20 | XMS_ITS | Encounter Summary ---
Author Organization [facility] Address [address] [place] [address] Phone Care Team Providers Care Customer Service Attendant Name Role Phone Unknown, Unknown Primary Care Provider Kit Rosas W DO Unavailable [phone] Danilo Dhillon MD Primary Care Provider [phone] Encounter Details Date Type Department Care Team (Late st Contact Info) Description 03/15/2018 Ancillary Orders [facility],Outside Imaging [address] [place] [address] System, Provider [place] In, [place] [address] Social History Tobacco Use Types Packs/Day Years [...] encounter Results * Mammogram Outside (No Interpretation) (02/05/2018 12:00 AM EDT) Narrative SYSTEMGENERATED, DOCUMENTATION - 03/15/2018 1:16 PM EDT This study is for PACS storage only and not for interpretation. us Provider Not In System PhD IMG OUTSIDE IMAGING W /OUT INTERPRETATION Final Result documented in this encounter Visit Diagnoses Not on filedocumented in this encounter Care Teams Customer Service Attendant Relationship Specialty Start Date End Date Unknown, Unknown, PCP - General 03/15/18 03/21/18 Danilo Dhillon MD [address] [place] [address] [place] [address] PCP - General Internal Medicine 03/22/18 Kit Davis DO [address] [place] [phone] [email or web address] Hematology and Oncology 03/22/18 documented as of this encounter Additional Source Comments The information contained in this document represents components of the legal health record. It is not the complete legal health record.[facility]
--- OUTSIDE RECORDS SUMMARY | 2025-07-16 15:20 | XMS_ITS | Clinical Summary ---
Author Organization [employer] Address [address] [facility] [address] [place] [address] Care Team Providers Care Perinatal Nurse Name Role Phone Unavailable Primary Care Provider [...] - 1-dose 75+ series) 2018 COVID-19 Vaccine (1 - 2023-2 5 season) 2025 Influenza Vaccine (#1) 2025 HIB Vaccines Aged Out No longer eligi [...]
--- OUTSIDE RECORDS SUMMARY | 2025-07-16 15:20 | XMS_ITS | Encounter Summary ---
Author Organization [employer] Address [address] [facility] 7t [place] [address] Care Team Providers Care Librarian Name Role Phone Unavailable Primary Care Provider Unavailabl e Reason for Visit * Reason Comments Med Refill Encounter Details Date Type Department Care Team (Late st Contact Info) Description 02/28/2024 Refill [facility]IC[facility] [address] [place] [address] Alessandra Mcnair MD Social History Tobacco Use [...]
--- OUTSIDE RECORDS SUMMARY | 2025-07-16 15:20 | XMS_ITS | Clinical Summary ---
Author Organization [facility] Address [address] [place] [address] Phone Care Team Providers Care Directional Drill Operator Name Role Phone Kit Davis DO Unavailable [phone] Danilo Dhillon MD Primary Care Provider [phone] Allergies Active Allergy Reactions Criticality Noted Date Comments Hydrochlorothiazide Other (See Comments) High 2017 Syncope, diaphoresis Lisinopril Cough 03/22/2018 Medications ibuprofen (ADVIL,MOTRIN) 800 MG tablet Take 1 tablet by mouth 3 (three) times a day. Active aspirin (ASPIR-81) 81 MG EC tablet Take 81 mg by mouth daily. Active donepezil (ARICEPT) 10 MG tablet Take 1 tablet by mouth nightly. Active cholecalciferol (VITAMIN D3) 5,000 unit tablet as directed Orally Active cyanocobalamin 100 MCG tablet Take 1 tablet by mouth daily. Active gabapentin (NEURONTIN) 100 MG capsule 1 tablet Orally Twice a day 7 Active simvastatin (ZOCOR) 10 MG tablet Take 1 tablet by mouth every evening. Active FLUoxetine (PROZAC) 20 MG capsule Take 1 capsule by mouth every morning. Active rOPINIRole (REQUIP) 0.5 MG tablet Take 0.5 mg by mouth daily. Active memantine (NAMENDA) 5 MG tablet Take 5 mg by mouth 2 (two) times a day. Active anastrozole (ARIMIDEX) 1 mg tablet TAKE ONE TABLET BY MOUTH EVERY DAY 90 tablet 1 Active nystatin (NYSTOP) powder Apply topically 4 (four) times a day. Under breasts and continue for 7 days beyond resolution of symptoms 30 g 1 Active Active Problems Patient Care Coordination No te Formatting of this note migh t be different from the original. Height 162.9 cm No shoes Problem Noted Date Diagnosed Date Malignant neoplasm of left b reast, estrogen receptor positive 03/29/2018 Immunizations Immunization Administration Dates Next Due COVID-19 (Pre-07/16) Pfizer Vaccine, mRNA, PF ,11/02/2020 Pneumococcal conjugate PCV13 08/15/2017 Family History Medical History Relation Comments Colon cancer Brother Lung cancer Brother Colon cancer Daughter Sarcoma Daughter Colon cancer Mother Breast cancer Niece Breast cancer Sister Relation Status Comments Brother Daughter Mother Niece Sister Social History Tobacco Use Types Packs/Day Years Used Date Smoking Tobacco: Former Cigarettes 1 35 1 969 - 2004 Smokeless Tobacco: Never Alcohol Use Standard Drinks/Week Comments Yes 0 (1 standard drink = 0.6 oz pur e alcohol) occasional beers socially Education Answer Date Recorded Are you interested in more education? Not on naresh e 01/19/2023 Are you concerned about learning? Not on file 01/19/2023 No 01/19/2023 No 01/19/2023 Digital Access Answer Date Recorded No 02/17/2023 No 02/17/2023 Reliable internet access at home? Not on file 02/17/2023 Device with a working camera? Not on file Comments Unknown Sex and Gender Information Value Date Recorded Sex Assigned at Female 04/01/2018 9:14 AM EDT Legal Sex Female 10:10 PM EDT Gender Identity Female 04/01/2018 9:14 AM EDT Sexual Orientation Not on file Last Filed Vital Signs Vital Sign Reading Time Taken Comments Blood Pressure 123/73 03/23/2021 11:08 AM EDT Pulse 94 03/23/2021 11:08 AM EDT Temperature 36.2 C (97.2 F) 03/23/2021 11:08 AM EDT Respiratory Rate 18 04/01/2018 9:57 AM EDT Oxygen Saturation 96% 03/23/2021 11: 08 AM EDT Inhaled Oxygen Concentration - - Weight 101.2 kg (223 lb 3.2 oz) 021 11:08 AM EDT Height 162.9 cm (5' 4.13 ) 03/23/2021 1 1:08 AM EDT Body Mass Index 38.15 03/23/2021 11:08 AM EDT Plan of Treatment Health Maintenance Due Date Last Done Comments Adult Td,Tdap Booster 1945 DEPRESSION SCREENING 1955 OSTEOPOROSIS SCREENING INITIAL (ONE-TIME) 01/28/2008 RSV VACCINE (1 - 1-dose 75+ series) 2018 ZOSTER VACCINES (2 of 2) 06/13/2023 04/18/2023 INFLUENZA VACCINE (#1) 2025 10/04/2023, 2021 COVID-19 VACCINE ( season) 2025 03/06/2023, 08/15/2022, 04/10/2022, Additional history exists PNEUMOCOCCAL VACCINES (50+ years) Completed 04/18/2023, 04/10/2022, 08/15/2017 HEPATITIS A VACCINES Aged Out No long er eligible based on patient's age to complete this topic HIB VACCINES Aged Out No longer eligi ble based on patient's age to complete this topic MENINGOCOCCAL VACCINES (ACWY) Aged Out No longer eligible based on patient's age to complete this topic MENINGOCOCCAL VACCINES (B) Aged Out N o longer eligible based on patient's age to complete this topic Medical Devices Not on file Insurance [facility] MEDICARE REPLACEMENT [facility] MEDICARE REPLACEMENT MEDICARE REPLACEMENT MEDICARE REPLACEMENT MEDICARE REPLACEMENT [facility] MEDICARE REPLACEMENT Care Teams Directional Drill Operator Relationship Specialty Start Date End Date Danilo Dhillon MD [address] [place] [address] [place] [address] PCP - General Internal Medicine 03/22/18 Kit Davis DO [address] [place] [phone] [email or web address] Hematology and Oncology 03/22/18 Additional Source Comments The information contained in this document represents components of the legal health record. It is not the complete legal health record.[facility]
== END 2025-07-16 10:31 | disposition home or self-care (01) ==
LOC: HO.HVNA 10:30
PROVIDERS: PCP Nurse Practitioner Family; Visit Provider Internal Medicine Hypertension Specialist
DX: N18.32 Chronic kidney disease, stage 3b (principal); I50.9 Heart failure, unspecified
CPT/HCPCS: 36415; 80048; 85027

== ENCOUNTER 2025-07-17 15:01 | Outpatient (AMB) | payer MEDICARE, SELFPAY ==
[2025-07-17 15:05] VITALS: BP 130/70; PULSE 64; O2SAT 94; BMI 31.6
--- NOTE | 2025-07-17 15:05 | HO.NEPHOV_ITS ---
Vital Signs 07/17/25 15:05 Height 5 ft 6 in Weight 196 lb BMI 31.6 BP 130/70 Blood Pressure Location Rt brachial Position Sitting Pulse 64 Pulse Source Pulse Oximeter Pulse Oximetry (%) 94 Oxygen Delivery Method Room Air Intake Visit Reasons: FU, left vm Hematologist Oncologist Required: No Accompanied by: Daughter Allergies hydrochlorothiazide (From ZESTORETIC) Allergy (Intermediate, Verified 07/17/25 15:06) FELT FAINT, syncope lisinopril (LISINOPRIL) Allergy (Intermediate, Verified 07/17/25 15:06) Cough Medication List - Last Reconciled 07/17/25 by Benson Li MD albuterol sulfate 90 mcg/actuation 2 puffs inhalation Q4-6H PRN albuterol sulfate 90 mcg/actuation 2 puffs inhalation Q4-6H PRN 30 days alendronate 70 mg PO MO amiodarone 200 mg PO DAILY 90 days apixaban (Eliquis) 2.5 mg PO BID 90 days ascorbic acid (vitamin C) (Vitamin C) 250 mg PO DAILY budesonide-formoterol 160-4.5 mcg/actuation (Symbicort) 2 puffs inhalation ONCE budesonide-formoterol 160-4.5 mcg/actuation (Symbicort) 2 puffs inhalation BID 30 days calcium carbonate-vitamin D3 600 mg-5 mcg (200 unit) 1 tab PO DAILY dapagliflozin propanediol (Farxiga) 10 mg PO DAILY doxycycline hyclate 100 mg PO BID 7 days ferrous sulfate 325 mg PO DAILY fluoxetine 20 mg PO DAILY fluticasone propionate 50 mcg/actuation 1 spray intranasal BID furosemide 40 mg PO DAILY furosemide 20 mg PO DAILY PRN guaifenesin 400 mg PO BID ipratropium-albuterol 0.5 mg-3 mg(2.5 mg base)/3 mL 3 mL inhalation Q4H PRN isosorbide mononitrate ER 30 mg See Protocol PO DAILY mecobalamin (vitamin B12) 2,000 mcg PO DAILY memantine 10 mg PO BID metoprolol succinate ER 50 mg PO DAILY floioxwa-uuaa-GE-calcium-mins 18 mg iron-400 mcg-500 mg Ca (Women's One Daily) 1 tab PO DAILY nitroglycerin 0.4 mg sublingual Q5M PRN pravastatin 40 mg PO BEDTIME prednisone 20 mg PO BID PRN HPI Comments Details: Marge returns for follow-up regarding various cardiac issues. She has atrial fibrillation, cardiomyopathy, suspected coronary disease. She is also quite frail. Many comorbidities. Former smoker and has COPD. On supplemental oxygen. Numerous hospitalizations. She has had 2 cardioversions for atrial fibrillation. Also history of GI bleed. After the last cardioversion in 2023, she has generally okay. Shortness of breath is at baseline. She comes in a wheelchair with the daughter who is a nurse. No recent hospitalizations. She has gained about 20 lb or so in weight. Dietary indiscretion during the holiday time. 03/05/25 Doing OK. Recently treated with a course of Doxy. Weight unchanged. No urinary issues. 07/17/25 - The patient is an 80-year-old female presenting with a follow-up for chronic disease management in the setting of cardiomyopathy. - Cardiomyopathy: Ongoing monitoring. - Chronic kidney disease: Creatinine increased to 2.09. - Anemia: Hemoglobin improved from 9.6 to 11.7. - Weight gain: Current weight around 197 pounds, previously 177 pounds. - Medication: Farxiga added four months ago, furosemide 40 mg daily, 20 mg as needed. COUNT INCLUDES THE [facility] Medical History History of cardioversion (~03/2024) CKD (chronic kidney disease) Hypoxemia Dyspnea on exertion Cardiomyopathy Obesity (BMI 30-39.9) Cataract Wears dentures Use of cane as ambulatory aid Arthritis Low back pain High cholesterol HTN (hypertension) Environmental and seasonal allergies Restrictive lung disease Essential hypertension Atherosclerotic cardiovascular disease COPD (chronic obstructive pulmonary disease) Surgical History History of esophagogastroduodenoscopy (EGD) Hx of colonoscopy History of tubal ligation History of ankle surgery History of lumpectomy of left breast Family History Father Family history of cancer Mother Colon cancer Alzheimer disease Social History Household Members: Family Household Members Other:: SON LIVES IN NEXT APARTMENT Housing: House Are you a primary customer care associate to a significant other at home: Yes (grandson age 13, son and daughter supportive) Do you presently have visiting nurse or other home services: Yes Alcohol intake: current Alcohol intake frequency: holidays/special occasions only Patient Tobacco Use Status: Former Tobacco user Tobacco use type: Cigarette Advance Directives Date on File: 10/17/23 service: No Physical Exam Vital Signs: Last Vital Signs Pulse 64 07/17/25 15:05 BP 130/70 07/17/25 15:05 Pulse Ox 94 07/17/25 15:05 Oxygen Delivery Method Room Air 07/17/25 15:05 BMI result Body Mass Index 31.6 Awake. Comfortable. Neck is supple. Mucosa moist. Lungs bilateral scattered rhonchi. Heart S1-S2 heard no gallop. Abdomen soft. Extremities no edema. No involuntary movements. No myoclonus. Results Reviewed Nephrology Results: Hgb, (12.0-16.0) 11.7 g/dl L 07/16/25 WBC, (4.8-10.8) 9.3 X10*3/uL 07/16/25 Plt Count, (160-400) 297 X10*3/uL 07/16/25 Sodium, (135-145) 143 mmol/L 07/16/25 Potassium, (3.3-5.1) 3.7 mmol/L 07/16/25 Chloride, (96-108) 102 mmol/L 07/16/25 Carbon Dioxide, (22-29) 32 mmol/L H 07/16/25 BUN, (9-16) 23 mg/dL H 07/16/25 Creatinine, (0.5-1.4) 2.09 mg/dL H 07/16/25 Calcium, (8.4-10.2) 8.4 mg/dL 07/16/25 Renal US 10/15/23 Assessment & Plan Assessment & Plan (1) RADHA (acute kidney injury): Code(s): N17.9 - Acute kidney failure, unspecified Category: Medical (2) CKD (chronic kidney disease): Code(s): N18.9 - Chronic kidney disease, unspecified Category: Medical Qualifiers: Chronic kidney disease stage: stage 3 (moderate) Chronic kidney disease stage 3 subtype: stage 3b (GFR 30-44) Qualified Code(s): N18.32 - Chronic kidney disease, stage 3b (3) Anemia: Code(s): D64.9 - Anemia, unspecified Category: Medical Plan Elderly woman with COPD and a.flutter s/p cardioversion sustained RADHA due to hypoperfusion from aggressive diuresis Clinically appears euvolemic today Currently on Lasix 40 mg QD BP is acceptable Goal is to slow the progression of kidney disease Keep on low salt diet Continue to avoid nephrotoxins Agree with adding Farxiga Anemia Multifactorial HCT has improved Orders: Orders Basic Metabolic Panel 4 Months Benson Li MD N18.32 - Chronic kidney disease, stage 3b Medications: Changed From prednisone 20 mg PO BID 5 days 10 tabs 1RF COPD EXCERBATION To prednisone 20 mg PO BID PRN Mini Martinez MD Coding Level of Care Code Est Pt Level 4 (28066) Diagnoses RADHA (acute kidney injury) N17.9 Stage 3b chronic kidney disease N18.32 Chronic kidney disease stage: stage 3 (moderate) Chronic kidney disease stage 3 subtype: stage 3b (GFR 30-44) Anemia D64.9
--- OUTSIDE RECORDS SUMMARY | 2025-07-17 16:41 | XMS_ITS | Clinical Summary ---
Author Organization [employer] Address [address] [facility] 7[address] [place] [address] Care Team Providers Care Protection Manager Name Role Phone Unavailable Primary Care Provider [...]
--- OUTSIDE RECORDS SUMMARY | 2025-07-17 16:41 | XMS_ITS | Encounter Summary ---
Author Organization [employer] Address [address] [facility] 7t [place] [address] Care Team Providers Care Supervisor Treating And Pumping Name Role Phone Unavailable Primary Care Provider Unavailabl e Reason for Visit * Reason Comments Med Refill Encounter Details Date Type Department Care Team (Late st Contact Info) Description 02/28/2024 Refill [facility] [address] [place] [address] Alessandra Mcnair MD Social History Tobacco Use [...]
--- OUTSIDE RECORDS SUMMARY | 2025-07-17 16:41 | XMS_ITS | Patient Health Record ---
Author Organization [facility] Address [address] [place] [id number] Care Team Providers Care Textile Finisher Name Role Phone Aleksander Lewis Gaye [phone] Reason For Referral No Information Plan Of Treatment No Information
== END 2025-07-17 15:21 | disposition home or self-care (01) ==
LOC: HO.HKA 15:02
PROVIDERS: PCP Nurse Practitioner Family; Visit Provider Internal Medicine Hypertension Specialist
DX: N17.9 Acute kidney failure, unspecified (principal); N18.32 Chronic kidney disease, stage 3b; D64.9 Anemia, unspecified
CPT/HCPCS: 99214

== ENCOUNTER → 2025-07-17 15:01 | Outpatient (BNVA) | payer MEDICARE, SELFPAY | PROVIDERS: PCP Nurse Practitioner Family; Visit Provider Internal Medicine Hypertension Specialist | DX: N17.9 Acute kidney failure, unspecified (principal); N18.32 Chronic kidney disease, stage 3b; D64.9 Anemia, unspecified | CPT/HCPCS: 99212 ==

== ENCOUNTER 2025-08-17 14:08 | Outpatient (AMB) | payer MEDICARE, SELFPAY ==
--- NOTE | 2025-08-17 14:11 | MHC.OFFVIS ---
Vital Signs 08/17/25 14:12 Height 5 ft 6 in BMI Reason not done Patient refused/unable BP 122/62 Blood Pressure Location Lt brachial Position Sitting Pulse 61 Pulse Source Monitor Intake Visit Reasons: f/up holter Allergies hydrochlorothiazide (From ZESTORETIC) Allergy (Intermediate, Verified 07/17/25 15:06) FELT FAINT, syncope lisinopril (LISINOPRIL) Allergy (Intermediate, Verified 07/17/25 15:06) Cough Medication List - Last Reconciled 08/17/25 by Gary Mathew MD albuterol sulfate 90 mcg/actuation 2 puffs inhalation Q4-6H PRN albuterol sulfate 90 mcg/actuation 2 puffs inhalation Q4-6H PRN 30 days alendronate 70 mg PO MO amiodarone 200 mg PO DAILY 90 days apixaban (Eliquis) 2.5 mg PO BID 90 days ascorbic acid (vitamin C) (Vitamin C) 250 mg PO DAILY budesonide-formoterol 160-4.5 mcg/actuation (Symbicort) 2 puffs inhalation ONCE budesonide-formoterol 160-4.5 mcg/actuation (Symbicort) 2 puffs inhalation BID 30 days calcium carbonate-vitamin D3 600 mg-5 mcg (200 unit) 1 tab PO DAILY dapagliflozin propanediol (Farxiga) 10 mg PO DAILY doxycycline hyclate 100 mg PO BID 7 days ferrous sulfate 325 mg PO DAILY fluoxetine 20 mg PO DAILY fluticasone propionate 50 mcg/actuation 1 spray intranasal BID furosemide 40 mg PO DAILY furosemide 20 mg PO DAILY PRN guaifenesin 400 mg PO BID ipratropium-albuterol 0.5 mg-3 mg(2.5 mg base)/3 mL 3 mL inhalation Q4H PRN isosorbide mononitrate ER 30 mg See Protocol PO DAILY mecobalamin (vitamin B12) 2,000 mcg PO DAILY memantine 10 mg PO BID metoprolol succinate ER 50 mg PO DAILY imxkeeeo-khjl-SF-calcium-mins 18 mg iron-400 mcg-500 mg Ca (Women's One Daily) 1 tab PO DAILY nitroglycerin 0.4 mg sublingual Q5M PRN pravastatin 40 mg PO BEDTIME prednisone 20 mg PO BID PRN HPI Comments Details: Marge returns for follow-up regarding various cardiac issues. She has atrial fibrillation, cardiomyopathy, suspected coronary disease. She is also quite frail. Many comorbidities. Former smoker and has COPD. On supplemental oxygen. Numerous hospitalizations. She has had 2 cardioversions for atrial fibrillation. Also history of GI bleed. Today, comes in wheel chair with daughter. Last cardioversion was performed in 2023. After that, she has stable from cardiac standpoint. Apart from frailty, generally okay. On and off wheezing extra but daughter who is a nurse and able to handle additional medications, nebulizers as needed. [facility] Medical History History of cardioversion (~03/2024) CKD (chronic kidney disease) Hypoxemia Dyspnea on exertion Cardiomyopathy Obesity (BMI 30-39.9) Cataract Wears dentures Use of cane as ambulatory aid Arthritis Low back pain High cholesterol HTN (hypertension) Environmental and seasonal allergies Restrictive lung disease Essential hypertension Atherosclerotic cardiovascular disease COPD (chronic obstructive pulmonary disease) Surgical History History of esophagogastroduodenoscopy (EGD) Hx of colonoscopy History of tubal ligation History of ankle surgery History of lumpectomy of left breast Family History Father Family history of cancer Mother Colon cancer Alzheimer disease Social History Household Members: Family Household Members Other:: SON LIVES IN NEXT APARTMENT Housing: House Are you a primary resident caregiver to a significant other at home: Yes (grandson age 13, son and daughter supportive) Do you presently have visiting nurse or other home services: Yes Alcohol intake: current Alcohol intake frequency: holidays/special occasions only Patient Tobacco Use Status: Former Tobacco user Tobacco use type: Cigarette Advance Directives Date on File: 10/17/23 service: No Review of Systems Const Denies weakness ENT Denies dizziness Card Reports chest pain, Denies chest pain with activity, Denies syncope, Denies rapid heart rate, Denies pedal edema, Denies edema, Denies leg edema, Denies lightheadedness, Denies palpitations, Denies dyspnea, Denies dyspnea on exertion and Denies orthopnea Resp Denies cough, Denies dyspnea and Denies dyspnea on exertion GI Denies hematochezia and Denies change in stool character Musc Denies abnormal gait, Denies muscle cramps, Denies muscle weakness, Denies numbness, Denies radiating pain into limb and Denies tingling Neuro Denies abnormal gait, Denies dizziness, Denies syncope, Denies numbness, Denies tingling and Denies weakness Endo Denies palpitations Physical Exam Vital Signs: Last Vital Signs Pulse 61 08/17/25 14:12 BP 122/62 08/17/25 14:12 Office Procedures EKG Details: EKG with underlying sinus rhythm at 61/Min; cannot exclude old inferior infarct; normal LA; corrected QT is slightly prolonged at 493 milliseconds. 15550-[id number], Complete Assessment & Plan Assessment & Plan (1) PAF (paroxysmal atrial fibrillation): Code(s): I48.0 - Paroxysmal atrial fibrillation Category: Medical Plan: Status post cardioversion. Remains on amiodarone/metoprolol. Check thyroid function. Remains on anticoagulation. Most recent Holter was unremarkable. (2) Cardiomyopathy: Code(s): I42.9 - Cardiomyopathy, unspecified Category: Medical Qualifiers: Cardiomyopathy type: unspecified Qualified Code(s): I42.9 - Cardiomyopathy, unspecified Plan: In the most recent echocardiogram, LVEF is 55-60% with wall motion abnormalities from underlying coronary disease. In the prior study, it was 31%. Hence significantly improved. Remains on beta-blockers, diuretics, Farxiga. (3) Atherosclerotic cardiovascular disease: Code(s): I25.10 - Atherosclerotic heart disease of [place] coronary artery without angina pectoris Category: Medical Plan: Myocardial perfusion imaging study 2020 shows probable old infarct along the inferior wall, but no ischemia. Overall, suspect underlying coronary disease but she does not have any overt angina. Cardiac catheterization has been discussed numerous times in the past but because of various issues including age, frailty, GI bleed history, renal insufficiency, oxygen dependence extra, decided to just treat medically and daughter has been in full agreement. (4) Essential hypertension: Code(s): I10 - Essential (primary) hypertension Category: Medical Plan: Stable. Plan Discussion Notes I informed the patient and caregiver that the recent cardiac monitoring was reassuring, showing only some PVCs with no atrial fibrillation, and that we will continue with the current treatment plan. I explained the need for ongoing monitoring due to the amiodarone medication and that I will place an order for thyroid function test. We agreed that the patient should schedule a follow-up appointment in six months for reassessment. Patient was informed and verbally consented to the use of an ambient scribe for clinic note documentation during this visit. Orders: Orders TSH reflex Free T4 Today I48.0 - Paroxysmal atrial fibrillation, R94.6 - Abnormal results of thyroid function studies Patient Instructions: - Continue to take your medications as prescribed, including amiodarone, Farxiga, and metoprolol. - You will need to get bloodwork done to check your thyroid levels. An order has been placed for this test. - Use your oxygen at night as you have been doing. - Please schedule a follow-up appointment in our office in six months. Coding Level of Care Code Est Pt Level 4 (04115) Complex visit Add On G2211 Diagnoses PAF (paroxysmal atrial fibrillation) I48.0 Cardiomyopathy, unspecified type I42.9 Cardiomyopathy type: unspecified Atherosclerotic cardiovascular disease I25.10 Essential hypertension I10 CPT Codes EKG - CPT: 42215-Wjzhzhoaguesnukce, Complete ([id number])
[2025-08-17 14:12] VITALS: BP 122/62; PULSE 61
--- OUTSIDE RECORDS SUMMARY | 2025-08-17 19:06 | XMS_ITS | Encounter Summary ---
Author Organization [facility] Address [address] [address] Phone Care Team Providers Care Putty Mixer Name Role Phone Unknown, Unknown Primary Care Provider Kit Rosas W DO Unavailable [phone] Danilo Dhillon MD Primary Care Provider [phone] Encounter Details Date Type Department Care Team (Late st Contact Info) Description 03/15/2018 Ancillary Orders [facility],Outside Imaging [address] [place] [address] System, Provider Not In, [place] [address] Social History Tobacco Use Types Packs/Day Years [...] on filedocumented in this encounter Care Teams Putty Mixer Relationship Specialty Start Date End Date Unknown, Unknown, PCP - General 03/15/18 03/21/18 Danilo Dhillon MD [address] [place] [address] [place] [address] PCP - General Internal Medicine 03/22/18 Kit Davis DO [address] [place] [phone] [email or web address] Hematology and Oncology 03/22/18 documented as of this encounter Additional Source Comments The information contained in this document represents components of the legal health record. It is not the complete legal health record.[facility]
--- OUTSIDE RECORDS SUMMARY | 2025-08-17 19:06 | XMS_ITS | Encounter Summary ---
Author Organization [facility] Address [address] [place] [id number] Phone Care Team Providers Care Volleyball Player Name Role Phone Unknown, Unknown Primary Care Provider Kit Rosas W DO Unavailable [phone] Danilo Dhillon MD Primary Care Provider [phone] Encounter Details Date Type Department Care Team (Late st Contact Info) Description 03/15/2018 Ancillary Orders [facility],Outside Imaging [address] [place] [address] System, Provider [place] In, [place] [address] Social History Tobacco Use Types Packs/Day Years [...] on filedocumented in this encounter Care Teams Volleyball Player Relationship Specialty Start Date End Date Unknown, Unknown, PCP - General 03/15/18 03/21/18 Danilo Dhillon MD [address] [place] [address] [place] [address] PCP - General Internal Medicine 03/22/18 Kit Davis DO [address] [place] [phone] [email or web address] Hematology and Oncology 03/22/18 documented as of this encounter Additional Source Comments The information contained in this document represents components of the legal health record. It is not the complete legal health record.[facility]
--- OUTSIDE RECORDS SUMMARY | 2025-08-17 19:06 | XMS_ITS | Encounter Summary ---
Author Organization [facility] Address [address] [address] Phone Care Team Providers Care Asbestos Microscopist Name Role Phone Unknown, Unknown Primary Care Provider Kit Rosas W DO Unavailable [phone] Danilo Dhillon MD Primary Care Provider [phone] Encounter Details Date Type Department Care Team (Late st Contact Info) Description 03/15/2018 Ancillary Orders [facility],Outside Imaging [address] [place] [address] System, Provider [place] In, [place] [address] Social History Tobacco Use Types Packs/Day Years [...] on filedocumented in this encounter Care Teams Asbestos Microscopist Relationship Specialty Start Date End Date Unknown, Unknown, PCP - General 03/15/18 03/21/18 Danilo Dhillon MD [address] [place] [address] [place] [address] PCP - General Internal Medicine 03/22/18 Kit Davis DO [address] [place] [phone] [email or web address] Hematology and Oncology 03/22/18 documented as of this encounter Additional Source Comments The information contained in this document represents components of the legal health record. It is not the complete legal health record.[facility]
--- OUTSIDE RECORDS SUMMARY | 2025-08-17 19:07 | XMS_ITS | Encounter Summary ---
Author Organization [facility] Address [address] [place] [address] Phone Care Team Providers Care Hogshead Liner Name Role Phone Unknown, Unknown Primary Care Provider Kit Rosas W DO Unavailable [phone] Danilo Dhillon MD Primary Care Provider [phone] Encounter Details Date Type Department Care Team (Late st Contact Info) Description 03/15/2018 Ancillary Orders [facility],Outside Imaging [address] [place] [address] System, Provider [place] In, [place] [address] Social History Tobacco Use Types Packs/Day Years [...] on filedocumented in this encounter Care Teams Hogshead Liner Relationship Specialty Start Date End Date Unknown, Unknown, PCP - General 03/15/18 03/21/18 Danilo Dhillon MD [address] [place] [address] [place] [address] PCP - General Internal Medicine 03/22/18 Kit Davis DO [address] [place] [phone] [email or web address] Hematology and Oncology 03/22/18 documented as of this encounter Additional Source Comments The information contained in this document represents components of the legal health record. It is not the complete legal health record.[facility]
--- OUTSIDE RECORDS SUMMARY | 2025-08-17 19:07 | XMS_ITS | Encounter Summary ---
Author Organization [facility] Address [address] [place] [phone] Phone Care Team Providers Care Bpm Developer Name Role Phone Unknown, Unknown Primary Care Provider Kit Rosas W DO Unavailable [phone] Danilo Dhillon MD Primary Care Provider [phone] Encounter Details Date Type Department Care Team (Late st Contact Info) Description 03/15/2018 Ancillary Orders [facility],Outside Imaging [address] [place] [address] System, Provider [place] In, [place] [address] Social History Tobacco Use Types Packs/Day Years [...] on filedocumented in this encounter Care Teams Bpm Developer Relationship Specialty Start Date End Date Unknown, Unknown, PCP - General 03/15/18 03/21/18 Danilo Dhillon MD [address] [place] [address] [place] [address] PCP - General Internal Medicine 03/22/18 Kit Davis DO [address] [place] [phone] [email or web address] Hematology and Oncology 03/22/18 documented as of this encounter Additional Source Comments The information contained in this document represents components of the legal health record. It is not the complete legal health record.[facility]
--- OUTSIDE RECORDS SUMMARY | 2025-08-17 19:07 | XMS_ITS | Clinical Summary ---
Author Organization [facility] Address [address] [place] [address] Phone Care Team Providers Care Shuttler Name Role Phone Kit Davis DO Unavailable [phone] Danilo Dhillon MD Primary Care Provider [phone] Allergies Active Allergy Reactions Criticality Noted Date [...] topic Medical Devices Not on file Insurance [facility] MED[facility] RE[facility]EMENT [facility] MED[facility] REPLACEMENT MEDICARE REPLACEMENT MEDICARE REPLACEMENT MEDICARE REPLACEMENT [facility] MEDICARE REPLACEMENT Care Teams Shuttler Relationship Specialty Start Date End Date Danilo Dhillon MD [address] [place] [address] [place] [address] PCP - General Internal Medicine 03/22/18 Kit Davis DO [address] [place] [phone] [email or web address] Hematology and Oncology 03/22/18 Additional Source Comments The information contained in this document represents components of the legal health record. It is not the complete legal health record.[facility]
--- OUTSIDE RECORDS SUMMARY | 2025-08-17 19:07 | XMS_ITS | Clinical Summary ---
Author Organization [employer] Address [address] [facility] 7t [place] [address] Care Team Providers Care Muck Hauler Name Role Phone Unavailable Primary Care Provider [...] 75+ series) 2018 COVID-19 Vaccine ( - 2024-2 6 season) 2025 Influenza Vaccine (#1) 2025 HIB [...]
--- OUTSIDE RECORDS SUMMARY | 2025-08-17 19:07 | XMS_ITS | Encounter Summary ---
Author Organization [facility] Address [address] [address] Phone Care Team Providers Care Public Health Social Worker Name Role Phone Unknown, Unknown Primary Care Provider Kit Rosas W DO Unavailable [phone] Danilo Dhillon MD Primary Care Provider Encounter Details Date Type Department Care Team (Late st Contact Info) Description 03/15/2018 Ancillary Orders [facility],Outside Imaging [address] [place] [address] System, Provider [place] In, [place] [address] Social History Tobacco Use Types Packs/Day Years [...] on filedocumented in this encounter Care Teams Public Health Social Worker Relationship Specialty Start Date End Date Unknown, Unknown, PCP - General 03/15/18 03/21/18 Danilo Dhillon MD [address] [place] [address] [place] [address] PCP - General Internal Medicine 03/22/18 Kit Davis DO [address] [place] [id number] [email or web address] Hematology and Oncology 03/22/18 documented as of this encounter Additional Source Comments The information contained in this document represents components of the legal health record. It is not the complete legal health record.[facility]
--- OUTSIDE RECORDS SUMMARY | 2025-08-17 19:07 | XMS_ITS | Encounter Summary ---
Author Organization [facility] Address [address] [place] [address] Phone Care Team Providers Care [place] Name Role Phone Unknown, Unknown Primary Care Provider Kit Rosas W DO Unavailable [phone] Danilo Dhillon MD Primary Care Provider [phone] Encounter Details Date Type Department Care Team (Late st Contact Info) Description 03/15/2018 Ancillary Orders [facility],Outside Imaging [address] [place] [address] System, Provider [place] In, [place] [address] Social History Tobacco Use Types Packs/Day Years [...] on filedocumented in this encounter Care Teams [place] Relationship Specialty Start Date End Date Unknown, Unknown, PCP - General 03/15/18 03/21/18 Danilo Dhillon MD [address] [place] [address] [place] [address] PCP - General Internal Medicine 03/22/18 Kit Davis DO [address] [place] [id number] [email or web address] Hematology and Oncology 03/22/18 documented as of this encounter Additional Source Comments The information contained in this document represents components of the legal health record. It is not the complete legal health record.[facility]
--- OUTSIDE RECORDS SUMMARY | 2025-08-17 19:07 | XMS_ITS | Encounter Summary ---
Author Organization [employer] Address [address] [facility] 7t [place] [address] Care Team Providers Care Back Tender Paper Machine Name Role Phone Unavailable Primary Care Provider Unavailabl e Reason for Visit * Reason Comments Med Refill Encounter Details Date Type Department Care Team (Late st Contact Info) Description 02/28/2024 Refill [facility] MEDICINE [address] [place] [address] Alessandra Mcnair MD Social History Tobacco Use [...]
== END 2025-08-17 14:33 | disposition home or self-care (01) ==
LOC: HO.HCS 14:09
PROVIDERS: PCP Nurse Practitioner Family; Visit Provider Internal Medicine
DX: I48.0 Paroxysmal atrial fibrillation (principal); I42.9 Cardiomyopathy, unspecified; I25.10 Atherosclerotic heart disease of native coronary artery without angina pectoris; I10 Essential (primary) hypertension
CPT/HCPCS: 93010; 99214; G2211

== ENCOUNTER → 2025-08-17 14:08 | Outpatient (BNVA) | payer MEDICARE, SELFPAY | PROVIDERS: PCP Nurse Practitioner Family; Visit Provider Internal Medicine | DX: I48.0 Paroxysmal atrial fibrillation (principal); I42.9 Cardiomyopathy, unspecified; I25.10 Atherosclerotic heart disease of native coronary artery without angina pectoris; I10 Essential (primary) hypertension | CPT/HCPCS: 93005; 99212 ==

== ENCOUNTER 2025-09-07 13:33 | Outpatient (AMB) | payer MEDICARE, SELFPAY ==
--- NOTE | 2025-09-07 13:38 | MHC.OFFVIS ---
Vital Signs 09/07/25 13:39 Height 5 ft 6 in Weight 194 lb 0.108 oz BMI 31.3 BP 130/72 Blood Pressure Location Lt brachial Position Sitting Pulse 61 Pulse Source Pulse Oximeter Pulse Oximetry (%) 93 Oxygen Delivery Method Room Air Intake Visit Reasons: cough Intake Note: pt is here for follow up and states she had a UTI, and she feels she is at her baseline. Security Systems Integrator Required: No Allergies hydrochlorothiazide (From ZESTORETIC) Allergy (Intermediate, Verified 09/07/25 13:58) FELT FAINT, syncope lisinopril (LISINOPRIL) Allergy (Intermediate, Verified 09/07/25 13:58) Cough Medication List - Last Reconciled 09/07/25 by Mini Martinez MD albuterol sulfate 90 mcg/actuation 2 puffs inhalation Q4-6H PRN 30 days alendronate 70 mg PO MO amiodarone 200 mg PO DAILY 90 days apixaban (Eliquis) 2.5 mg PO BID 90 days ascorbic acid (vitamin C) (Vitamin C) 250 mg PO DAILY budesonide-formoterol 160-4.5 mcg/actuation (Symbicort) 2 puffs inhalation BID 30 days calcium carbonate-vitamin D3 600 mg-5 mcg (200 unit) 1 tab PO DAILY dapagliflozin propanediol (Farxiga) 10 mg PO DAILY ferrous sulfate 325 mg PO DAILY fluoxetine 20 mg PO DAILY fluticasone propionate 50 mcg/actuation 1 spray intranasal BID furosemide 40 mg PO DAILY furosemide 20 mg PO DAILY PRN guaifenesin 400 mg PO BID ipratropium-albuterol 0.5 mg-3 mg(2.5 mg base)/3 mL 3 mL inhalation Q4H PRN isosorbide mononitrate ER 30 mg See Protocol PO DAILY mecobalamin (vitamin B12) 2,000 mcg PO DAILY memantine 10 mg PO BID metoprolol succinate ER 50 mg PO DAILY gvlljoxi-fbev-QP-calcium-mins 18 mg iron-400 mcg-500 mg Ca (Women's One Daily) 1 tab PO DAILY nitroglycerin 0.4 mg sublingual Q5M PRN pravastatin 40 mg PO BEDTIME prednisone 20 mg PO BID PRN Do you need a note to return to daycare/school/sports/work: No HPI HPI cough: Details: 80 years old very pleasant female is here for 6 months follow-up. She is mostly homebound and goes outdoors only in the wheelchair. Has remained fairly stable. Claims that her respiratory status is stable as usual. Luckily there has been no acute exacerbation. She has only mild intermittent cough mostly dry. [facility] Medical History History of cardioversion (~03/2024) CKD (chronic kidney disease) Hypoxemia Dyspnea on exertion Cardiomyopathy Obesity (BMI 30-39.9) Cataract Wears dentures Use of cane as ambulatory aid Arthritis Low back pain High cholesterol HTN (hypertension) Environmental and seasonal allergies Restrictive lung disease Essential hypertension Atherosclerotic cardiovascular disease COPD (chronic obstructive pulmonary disease) Surgical History History of esophagogastroduodenoscopy (EGD) Hx of colonoscopy History of tubal ligation History of ankle surgery History of lumpectomy of left breast Family History Father Family history of cancer Mother Colon cancer Alzheimer disease Social History Household Members: Family Household Members Other:: SON LIVES IN NEXT APARTMENT Housing: House Are you a primary complex care nurse to a significant other at home: Yes (grandson age 13, son and daughter supportive) Do you presently have visiting nurse or other home services: Yes Alcohol intake: current Alcohol intake frequency: holidays/special occasions only Patient Tobacco Use Status: Former Tobacco user Tobacco use type: Cigarette Advance Directives Date on File: 10/17/23 service: No Review of Systems Const All systems reviewed & are unremarkable except as noted in HPI and below Eyes Reports no additional complaints ENT Reports no additional complaints Card Denies chest pain, Denies irregular heart rhythm and Denies leg edema Resp Reports as per HPI GI Reports no additional complaints Reports no additional complaints Musc Reports back pain (MILD) Skin/Breast Reports system reviewed and no additional complaints, except as documented Neuro Reports no additional complaints and Reports memory loss (MILD) Psych Reports no additional complaints and Reports memory loss (MILD) Endo Reports no additional complaints Physical Exam Vital Signs: Last Vital Signs Pulse 61 09/07/25 13:39 BP 130/72 12/15/25 13:39 Pulse Ox 93 09/07/25 13:39 Oxygen Delivery Method Room Air 09/07/25 13:39 BMI result Body Mass Index 31.3 Const Other: Moderately overweight General: comfortable, no acute distress, alert and awake Orientation/consciousness: patient oriented x3 HEENT Head: Yes normal to inspection General nose exam: No nasal polyps present and No nasal discharge present Face and sinus: Yes sinuses nontender Mouth: oropharynx normal Throat: Yes posterior oropharynx normal Eyes General: appearance normal, both eyes and all related structures Neck Neck: Yes normal visual inspection, Yes no lymphadenopathy, Yes trachea midline and Yes no JVD Thyroid: Thyroid normal Chest Chest palpation & inspection: normal inspection of the chest, normal palpation of entire chest wall and no tenderness Resp Other: Percussion note resonant, breath sounds are distant with prolonged expiratory phase. A few wheezes over the basilar areas . Cardio Palpation: normal PMI Rate: regular rate Rhythm: regular rhythm Heart sounds: no gallops and no murmurs GI Palpation (GI): Soft to palpation, nontender, No hepatosplenomegaly present and no masses Auscultation: normal bowel sounds Back/Spine/Pelvis Thoracic/Lumbar Spine: thoracic and lumbar spine normal to inspection and thoraco-lumbar ROM limited Skin General skin exam: no rashes or lesions noted Neuro General: patient oriented x3 and no focal motor deficits Cranial nerves: Yes CN's II-XII intact bilaterally Extrem General: Yes normal to inspection, Yes no clubbing, cyanosis or edema and Yes no calf tenderness Psych Appearance: grossly normal and well kempt Speech and movement: Normal speech and movement present Assessment & Plan Assessment & Plan (1) COPD (chronic obstructive pulmonary disease): Comment: PATIENT DOES HAVE MODERATELY SEVERE OBSTRUCTIVE AIRWAY DISORDER PER PREVIOUS SPIROMETRY. IT IS STAYING VERY STABLE. Code(s): J44.9 - Chronic obstructive pulmonary disease, unspecified Category: Medical Plan: Continue Symbicort 160-4.52 puffs b.i.d. Albuterol HFA 2 puffs Q 4-6 hours prn Ipratropium-albuterol solution in the nebulizer Q 4-6 hours prn (2) Restrictive lung disease: Comment: PATIENT DOES HAVE MODERATE RESTRICTIVE DISORDER . THIS IS PROBABLY DUE TO HER GENERAL WEEAKNESS AND MODERATE OBESITY.. Code(s): J98.4 - Other disorders of lung Category: Medical Plan: Advised to do deep breathing exercises every 2 hours when awake. She does have incentive spirometry device at home and needs to be reminded to use it more frequently. (3) Hypoxemia: Comment: PATIENT IS CASE OF NOCTURNAL HYPOXEMIA AND ALSO EXERCISE INDUCED HYPOXEMIA. GRADUALLY SHE HAS BECOME DEPENDENT ON OXYGEN THROUGHOUT THE DAY AND NIGHT. Code(s): R09.02 - Hypoxemia Category: Medical Plan: Advised to continue using O2 2 L/minute at night. And 2 L/minute p.r.n. during the daytime. Coding Level of Care Code Est Pt Level 3 (68387) Diagnoses COPD (chronic obstructive pulmonary disease) J44.9 Restrictive lung disease J98.4 Hypoxemia R09.02
[2025-09-07 13:39] VITALS: BP 130/72; PULSE 61; O2SAT 93; BMI 31.3
--- OUTSIDE RECORDS SUMMARY | 2025-09-07 19:44 | XMS_ITS | Encounter Summary ---
Author Organization [employer] Address 75 [facility] 7t [place] [address] Care Team Providers Care Seafood Specialist Name Role Phone Unavailable Primary Care Provider Unavailabl e Reason for Visit * Reason Comments Med Refill Encounter Details Date Type Department Care Team (Late st Contact Info) Description 02/28/2024 Refill [facility] MEDICINE [address] [place] [address] Alessandra Mcnair MD Social History Tobacco Use [...]
--- OUTSIDE RECORDS SUMMARY | 2025-09-07 19:44 | XMS_ITS | Encounter Summary ---
Author Organization [facility] Address [address] [place] [address] Phone Care Team Providers Care Gravity Prospecting Operator Name Role Phone Unknown, Unknown Primary Care Provider Kit Rosas W DO Unavailable [phone] Danilo Dhillon MD Primary Care Provider [phone] Encounter Details Date Type Department Care Team (Late st Contact Info) Description 03/15/2018 Ancillary Orders [facility],Outside Imaging [address] [place] [address] System, Provider [place] In, [place] [address] Social History Tobacco Use Types Packs/Day Years [...] on filedocumented in this encounter Care Teams Gravity Prospecting Operator Relationship Specialty Start Date End Date Unknown, Unknown, PCP - General 03/15/18 03/21/18 Danilo Dhillon MD [address] [place] [address] [place] [address] PCP - General Internal Medicine 03/22/18 Kit Davis DO [address] [place] [id number] [email or web address] [email or web address] Hematology and Oncology 03/22/18 documented as of this encounter Additional Source Comments The information contained in this document represents components of the legal health record. It is not the complete legal health record.[facility]
--- OUTSIDE RECORDS SUMMARY | 2025-09-07 19:44 | XMS_ITS | Encounter Summary ---
Author Organization [facility] Address [address] [place] [address] Phone Care Team Providers Care Cook Fish Eggs Name Role Phone Unknown, Unknown Primary Care Provider Kit Rosas W DO Unavailable [phone] Danilo Dhillon MD Primary Care Provider [phone] Encounter Details Date Type Department Care Team (Late st Contact Info) Description 03/15/2018 Ancillary Orders [facility],Outside Imaging [address] [place] [address] System, Provider [place] In, [place] [address] Social History Tobacco Use Types Packs/Day Years [...] on filedocumented in this encounter Care Teams Cook Fish Eggs Relationship Specialty Start Date End Date Unknown, Unknown, PCP - General 03/15/18 03/21/18 Danilo Dhillon MD [address] [place] [address] [place] [address] PCP - General Internal Medicine 03/22/18 Kit Davis DO [address] [place] [phone] [email or web address] Hematology and Oncology 03/22/18 documented as of this encounter Additional Source Comments The information contained in this document represents components of the legal health record. It is not the complete legal health record.[facility]
--- OUTSIDE RECORDS SUMMARY | 2025-09-07 19:44 | XMS_ITS | Encounter Summary ---
Author Organization [facility] Address [address] [address] Phone Care Team Providers Care Recreation Clerk Name Role Phone Unknown, Unknown Primary Care Provider Kit Rosas W DO Unavailable [phone] Danilo Dhillon MD Primary Care Provider [phone] Encounter Details Date Type Department Care Team (Late st Contact Info) Description 03/15/2018 Ancillary Orders [facility],Outside Imaging [address] [place] [address] System, Provider [place] In, [place] [address] Social History Tobacco Use Types Packs/Day Years [...] on filedocumented in this encounter Care Teams Recreation Clerk Relationship Specialty Start Date End Date Unknown, Unknown, PCP - General 03/15/18 03/21/18 Danilo Dhillon MD [address] [place] [address] [place] [address] PCP - General Internal Medicine 03/22/18 Kit Davis DO [address] [place] [phone] [email or web address] [email or web address] Hematology and Oncology 03/22/18 documented as of this encounter Additional Source Comments The information contained in this document represents components of the legal health record. It is not the complete legal health record.[facility]
--- OUTSIDE RECORDS SUMMARY | 2025-09-07 19:44 | XMS_ITS | Clinical Summary ---
Author Organization [employer] Address [address] [facility] 7t [place] [address] Care Team Providers Care Press Operator Carbon Blocks Name Role Phone Unavailable Primary Care Provider [...]
--- OUTSIDE RECORDS SUMMARY | 2025-09-07 19:44 | XMS_ITS | Encounter Summary ---
Author Organization [facility] Address [address] [address] Phone Care Team Providers Care Transmission Technician Name Role Phone Unknown, Unknown Primary Care Provider Kit Rosas W DO Unavailable [phone] Danilo Dhillon MD Primary Care Provider [phone] Encounter Details Date Type Department Care Team (Late st Contact Info) Description 03/15/2018 Ancillary Orders [facility],Outside Imaging [address] [place] [address] System, Provider [place] In, [place] [address] Social History Tobacco Use Types Packs/Day Years [...] on filedocumented in this encounter Care Teams Transmission Technician Relationship Specialty Start Date End Date Unknown, Unknown, PCP - General 03/15/18 03/21/18 Danilo Dhillon MD [address] [place] [address] [place] [address] PCP - General Internal Medicine 03/22/18 Kit Davis DO [address] [place] [id number] [email or web address] Hematology and Oncology 03/22/18 documented as of this encounter Additional Source Comments The information contained in this document represents components of the legal health record. It is not the complete legal health record.[facility]
--- OUTSIDE RECORDS SUMMARY | 2025-09-07 19:44 | XMS_ITS | Encounter Summary ---
Author Organization [facility] Address [address] [address] Phone Care Team Providers Care Wax Engraver Name Role Phone Unknown, Unknown Primary Care Provider Kit oRsas W DO Unavailable [phone] Danilo Dhillon MD Primary Care Provider [phone] Encounter Details Date Type Department Care Team (Late st Contact Info) Description 03/15/2018 Ancillary Orders [facility],Outside Imaging [address] [place] [address] System, Provider [place] In, [place] [address] Social History Tobacco Use Types Packs/Day Years [...] on filedocumented in this encounter Care Teams Wax Engraver Relationship Specialty Start Date End Date Unknown, Unknown, PCP - General 03/15/18 03/21/18 Danilo Dhillon MD [address] [place] [address] [place] [address] PCP - General Internal Medicine 03/22/18 Kit Davis DO [address] [place] [id number] [email or web address] Hematology and Oncology 03/22/18 documented as of this encounter Additional Source Comments The information contained in this document represents components of the legal health record. It is not the complete legal health record.[facility]
--- OUTSIDE RECORDS SUMMARY | 2025-09-07 19:44 | XMS_ITS | Encounter Summary ---
Author Organization [facility] Address [address] [place] [address] Phone Care Team Providers Care Seam Rubbing Machine Operator Name Role Phone Unknown, Unknown Primary Care Provider Kit Rosas W DO Unavailable [phone] Danilo Dhillon MD Primary Care Provider [phone] Encounter Details Date Type Department Care Team (Late st Contact Info) Description 03/15/2018 Ancillary Orders [facility],Outside Imaging [address] [place] [address] System, Provider [place] In, [place] [address] Social History Tobacco Use Types Packs/Day Years [...] on filedocumented in this encounter Care Teams Seam Rubbing Machine Operator Relationship Specialty Start Date End Date Unknown, Unknown, PCP - General 03/15/18 03/21/18 Danilo Dhillon MD [address] [place] [address] [place] [address] PCP - General Internal Medicine 03/22/18 Kit Davis DO [address] [place] [phone] [email or web address] Hematology and Oncology 03/22/18 documented as of this encounter Additional Source Comments The information contained in this document represents components of the legal health record. It is not the complete legal health record.[facility]
--- OUTSIDE RECORDS SUMMARY | 2025-09-07 19:44 | XMS_ITS | Clinical Summary ---
Author Organization [facility] Address [address] [place] [address] Phone Care Team Providers Care Tractor Operator Battery Name Role Phone Kit Davis DO Unavailable [phone] Danilo Dhillon MD Primary Care Provider [phone] Allergies Active Allergy Reactions Criticality Noted Date [...] topic Medical Devices Not on file Insurance [facility] MEDICARE REPLACEMENT [facility] MEDICARE REPLACEMENT MEDICARE REPLACEMENT MEDICARE REPLACEMENT MEDICARE REPLACEMENT [facility] MEDICARE REPLACEMENT Care Teams Tractor Operator Battery Relationship Specialty Start Date End Date Danilo Dhillon MD [address] [place] [address] [place] [address] PCP - General Internal Medicine 03/22/18 Kit Davis DO [address] [place] [id number] [email or web address] Hematology and Oncology 03/22/18 Additional Source Comments The information contained in this document represents components of the legal health record. It is not the complete legal health record.[facility]
--- OUTSIDE RECORDS SUMMARY | 2025-09-07 19:44 | XMS_ITS | Encounter Summary ---
Author Organization [facility] Address [address] [place] [address] Phone Care Team Providers Care Corporate Communications Associate Name Role Phone Unknown, Unknown Primary Care Provider Kit Rosas W DO Unavailable [phone] Danilo Dhillon MD Primary Care Provider [phone] Encounter Details Date Type Department Care Team (Late st Contact Info) Description 03/15/2018 Ancillary Orders [facility],Outside Imaging [address] [place] [address] System, Provider [place] In, [place] [address] Social History Tobacco Use Types Packs/Day Years [...] on filedocumented in this encounter Care Teams Corporate Communications Associate Relationship Specialty Start Date End Date Unknown, Unknown, PCP - General 03/15/18 03/21/18 Danilo Dhillon MD [address] [place] [address] [place] [address] PCP - General Internal Medicine 03/22/18 Kit Davis DO [address] [place] [phone] [email or web address] Hematology and Oncology 03/22/18 documented as of this encounter Additional Source Comments The information contained in this document represents components of the legal health record. It is not the complete legal health record.[facility]
== END 2025-09-07 14:01 | disposition home or self-care (01) ==
LOC: HO.HPS 13:33
PROVIDERS: PCP Nurse Practitioner Family; Visit Provider Internal Medicine
DX: J44.9 Chronic obstructive pulmonary disease, unspecified (principal); J98.4 Other disorders of lung; R09.02 Hypoxemia
CPT/HCPCS: 99213

== ENCOUNTER → 2025-09-07 13:33 | Outpatient (BNVA) | payer MEDICARE, SELFPAY | PROVIDERS: PCP Nurse Practitioner Family; Visit Provider Internal Medicine | DX: J44.9 Chronic obstructive pulmonary disease, unspecified (principal); J98.4 Other disorders of lung; R09.02 Hypoxemia; Z79.899 Other long term (current) drug therapy; Z87.891 Personal history of nicotine dependence | CPT/HCPCS: 99212 ==